=== PATIENT | female | born 1950 | race Caucasian/White ===

== ENCOUNTER → 2018-02-21 | Outpatient (CLI) | payer MEDICARE, OTHER ==
[~2018-02-21] MED LIST: AMLO5TAB2 PO; ATN50T; AZIT-21 PO; BUTA1TAB46 PO; CATHETER FLUSH 10 ML SYR IV PRN; CYCL10TA9 PO; DEXL60CA PO; DLT120CCR PO; ENAL20TA PO; ENAL5TAB PO; EST.625T; FRSM20T PO; FURO40TA4 PO; KCL10CCR PO; METO50TA7 PO; MTP25TSR PO; NF-ESOM40C PO; OMG1KC PO; PARO10TA21 PO; POTA10CA43 PO; PRX10T PO; SCR1T1 PO; SOTA80TA PO; TRAM-42 PO; VLS80C; WRF2.5T PO
--- NOTE | 2018-02-21 15:22 | Diagnostic Imaging Report ---
INDICATION: Right upper quadrant pain EXAM: Hepatobiliary scan TECHNIQUE: 5.44 mCi of technetium 99m Choletec was given for the scan. 8 ounces of Ensure was given at 40 minutes into the exam. FINDINGS: There is homogeneous uptake of isotope throughout the liver. The common duct and cystic duct are both patent. The calculated gallbladder ejection fraction is 69% IMPRESSION: Normal hepatobiliary scan and gallbladder ejection. Dictated by: Dictated on workstation # [id number]
== END ==
LOC: CARD 11:36
PROVIDERS: ATTEND Family Medicine
DX: R10.11 Right upper quadrant pain (principal)
CPT/HCPCS: 78227

== ENCOUNTER 2018-03-07 05:31 | Outpatient (CLI) | payer MEDICARE, OTHER ==
[~2018-03-07] VITALS: Ht 165.1 cm; Wt 97.6 kg
[~2018-03-07 05:31] MED LIST changes: -CATHETER FLUSH 10 ML SYR IV PRN
[2018-03-07] MEDS ORDERED: DILT240C53 PO (10:11)
[2018-03-07] MEDS ORDERED: AMLO5TAB7 PO (10:11)
[2018-03-07] MEDS ORDERED: ENAL20TA PO (10:11)
[2018-03-07] MEDS ORDERED: PARO10TA3 PO (10:11)
[2018-03-07] MEDS ORDERED: ESOM40CA52 PO (10:11)
[2018-03-07] MEDS ORDERED: WARF2.5T82 PO ×2 (10:11)
== END 2018-03-07 10:22 | disposition home or self-care (01) ==
LOC: PREOP 05:31
PROVIDERS: ATTEND Surgery
DX: Z01.818 Encounter for other preprocedural examination (principal)

== ENCOUNTER 2018-03-25 12:10 | Outpatient (CLI) | payer MEDICARE, OTHER ==
[~2018-03-25] VITALS: Ht 165.1 cm; Wt 96.6 kg
[~2018-03-25 12:10] MED LIST changes: +AMLO5TAB7 PO; +DILT240C53 PO; +ESOM40CA52 PO; +PARO10TA3 PO; +WARF2.5T82 PO
[2018-03-25] MEDS ORDERED: METO-333 PO (12:28)
[2018-03-25] MEDS ORDERED: NFBIOT1000 PO (12:28)
[2018-03-27] MEDS ORDERED: HYDR-3816 PO (08:43)
== END 2018-03-25 12:40 | disposition home or self-care (01) ==
LOC: PREOP 12:10
PROVIDERS: ATTEND Surgery
DX: Z01.818 Encounter for other preprocedural examination (principal)
CPT/HCPCS: 87081

== ENCOUNTER 2019-02-03 10:35 | Outpatient (CLI) | payer MEDICARE, OTHER ==
[~2019-02-03] VITALS: Ht 165.1 cm; Wt 88.6 kg
[~2019-02-03 10:35] MED LIST changes: -AMLO5TAB7 PO; +AMLO5TAB9 PO; +HYDR-3816 PO; +METO-333 PO; +NFBIOT1000 PO
[2019-02-03] MEDS ORDERED: CARV12.53 PO (10:56)
[2019-02-03] MEDS ORDERED: FURO40TA4 PO (10:56)
[2019-02-03] MEDS ORDERED: DOFE125C4 PO (10:56)
[2019-02-03] MEDS ORDERED: POTA10TA10 PO (10:56)
== END 2019-02-03 11:00 | disposition home or self-care (01) ==
LOC: PREOP 10:35
PROVIDERS: ATTEND Surgery
DX: Z01.818 Encounter for other preprocedural examination (principal)

== ENCOUNTER 2019-08-31 19:37 | Inpatient (IN) | payer MEDICARE, OTHER ==
[~2019-08-31] VITALS: Ht 165 cm; Wt 94.3 kg
[~2019-08-31 19:37] MED LIST changes: +CARV12.53 PO; +DOFE125C4 PO; +HYDR-34 PO; -HYDR-3816 PO; +POTA10TA10 PO
[2019-08-31 19:52] LABS: BASOPHILS % (AUTO) 1 % (0-10); EOSINOPHILS # (AUTO) 0.2 10^3/uL (0.0-0.3); EOSINOPHILS % (AUTO) 4 % (0-10); HEMATOCRIT 37 % (35-52); HEMOGLOBIN 12.7 G/DL (11.5-16.0); LYMPHOCYTES # (AUTO) 1.2 X 10^3 (1.0-4.0); LYMPHOCYTES % (AUTO) 20 % (12-44); MEAN CORPUSCULAR HEMOGLOBIN 35 PG (25-34); MEAN CORPUSCULAR HGB CONC 35 G/DL (32-36); MEAN CORPUSCULAR VOLUME 100 FL (80-99); MEAN PLATELET VOLUME 9.6 FL (7.4-10.4); MONOCYTES # (AUTO) 0.7 X 10^3 (0.0-1.0); MONOCYTES % (AUTO) 12 % (0-12); NEUTROPHILS # (AUTO) 3.8 X 10^3 (1.8-7.8); NEUTROPHILS % (AUTO) 64 % (42-75); PLATELET COUNT 185 10^3/uL (130-400); WHITE BLOOD COUNT 5.9 10^3/uL (4.3-11.0)
[2019-08-31] MEDS ORDERED: LABETALOL HCL 20 MG/4 ML VIAL IV ONE (20:00)
--- NOTE | 2019-08-31 20:04 | Diagnostic Imaging Report ---
PROCEDURE: CT head wo r/o stroke, 08/31/2019. TECHNIQUE: Multiple contiguous axial images were obtained through the brain without the use of intravenous contrast. Auto Exposure Controls were utilized during the CT exam to meet ALARA standards for radiation dose reduction. INDICATION: Stroke-like symptoms. Shakey. Headache. Dizziness. Trouble focusing the left eye. COMPARISON: CT brain dated 11/28/2013 FINDINGS: There is an area of encephalomalacia in the posterior right parietal lobe towards the vertex. The remaining brain demonstrates chronic ischemic changes in a periventricular distribution. No acute hemorrhage is seen. No mass, mass effect or midline shift. No acute infarct visualized. No hydrocephalus. The calvarium is intact. The paranasal sinuses and mastoid air cells are clear. IMPRESSION: 1. No acute intracranial process. Dictated by: Dictated on workstation # [id number]
--- NOTE | 2019-08-31 20:06 | ED Neurological Problem ---
General Chief Complaint: Neuro-Stroke Like Symptoms Stated Complaint: STROKE SYMPTOMS Source: patient History of Present Illness Date Seen by Provider: Aug 31, 2019 Time Seen by Provider: 19:40 Initial Comments PT ARRIVES VIA POV FROM HOME PT HAD CALLED EMS, THEN REFUSED TRANSPORT AND CAME BY POV INSTEAD PT STATES THAT AROUND 1730 TONIGHT, SHE BEGAN HAVING DIFFICULTY WITH VISION FROM LEFT EYE NO HEADACHE HAS BEEN A LITTLE DIZZY AND FEELING SHAKEY--STATES THOSE SYMPTOMS ARE ALMOST GONE NOW NO PARESTHESIAS OR MOTOR DEFICITS NO CHEST PAIN NO PALPITATIONS NO SHORTNESS OF BREATH PT HAS BEEN OUTSIDE IN THE HEAT THE LAST FEW DAYS HAS BEEN SWIMMING IN POOL THIS AFTERNOON AND DID NOT HAVE ANY PROBLEMS PT DRINKS A COUPLE OF GLASSES OF WINE EVERY NIGHT, AND WAS DRINKING WINE WHEN SHE NOTICED SHE COULDN'T SEE WELL WITH HER LEFT EYE NO PROBLEMS SWALLOWING OR TALKING PT HAS HISTORY OF ATRIAL FIBRILLATION--HAS NOT HAD ANY SYMPTOMS OF IT RECENTLY AND FEELS LIKE IT HAS BEEN IN RHYTHM PT IS ON COUMADIN, BUT HAD TO STOP IT FOR 5 DAYS LAST WEEK TO HAVE AN EGD ON Saturday08/28/19, THEN RESTARTED COUMADIN ON SATURDAY NIGHT. NO OTHER MISSED DOSES NO MISSED DOSES OF ANY OTHER MEDICATION PT REPORTS THAT NO BIOPSIES WERE DONE WITH EGD. NO PRIOR HISTORY OF STROKE HAS HTN, BUT IS NORMALLY IN 130'S/80'S NO FEVER OR RECENT ILLNESS NO KNOWN EXPOSURE TO COVID-19 PCP: DR. WHITMAN CARDIOLOGY: [facility] [place] Allergies and Home Medications Allergies Coded Allergies: No Known Drug Allergies (Unverified , 03/07/18) Home Medications Aspirin 81 Mg Tab.chew, 81 MG PO DAILY@0900 Prescribed by: MARIIA DREW on 09/01/19 1321 Atorvastatin Calcium 80 Mg Tablet, 80 MG PO HS Prescribed by: MARIIA DREW on 09/01/19 1321 Biotin 1,000 Mcg Tablet, 1,000 MCG PO DAILY, (Reported) Carvedilol 25 Mg Tablet, 25 MG PO BID, (Reported) Diltiazem HCl 120 Mg Capsule.er, 120 MG PO DAILY, (Reported) Dofetilide 125 Mcg Capsule, 125 MCG PO BID, (Reported) Enoxaparin Sodium 100 Mg/1 Ml Syringe, 100 MG SC Q12H Prescribed by: MARIIA DREW on 09/01/19 1321 Esomeprazole Magnesium 40 Mg Capsule.dr, 40 MG PO DAILY, (Reported) Furosemide 40 Mg Tablet, 40 MG PO DAILY PRN for FLUID RETENTION, (Reported) Paroxetine HCl 10 Mg Tablet, 10 MG PO DAILY, (Reported) Potassium Chloride 10 Meq Tablet.er, 10 MEQ PO DAILY PRN for FLUID RETENTION, (Reported) Warfarin Sodium 1 Mg Tablet, 1.5 MG PO HS, (Reported) TAKES 1 & (1MG) TABS Patient Home Medication List Home Medication List Reviewed: Yes Review of Systems Review of Systems Constitutional: see HPI; No chills, No diaphoresis; dizziness; No fever, No malaise, No weakness Eyes: See HPI; Denies Blindness; Blurred Vision, Decreased Acuity; Denies Pain, Denies Photophobia; Vision Changes Ears, Nose, Mouth, Throat: no symptoms reported Respiratory: no symptoms reported Cardiovascular: no symptoms reported Gastrointestinal: no symptoms reported; No nausea, No vomiting Genitourinary: no symptoms reported Musculoskeletal: no symptoms reported Skin: no symptoms reported Psychiatric/Neurological: See HPI; Denies Cognitive Dysfunction, Denies Headache, Denies Numbness, Denies Tingling, Denies Tonic Clonic Seizures, Denies Unable to Move Lower Ext, Denies Unable to Move Upper Ext, Denies Weakness Endocrine: No Symptoms Reported Hematologic/Lymphatic: No Symptoms Reported; Denies Anemia, Denies Blood Clots Past Nihetgl-Lnzocu-Iltwqk Hx Past Med/Social Hx: Reviewed and Corrections made Patient Social History Alcohol Use: Regular Use (DRINKS A COUPLE OF GLASSES OF WINE EVERY NIGHT) Alcohol Beverage of Choice: Wine Recreational Drug Use: No Smoking Status: Never a Smoker 2nd Hand Smoke Exposure: No Recent Foreign Travel: No Contact w/Someone Who Travel: No Recent Hopitalizations: No Immunizations Up To Date Tetanus Booster (TDap): Less than 5yrs PED Vaccines UTD: No Date of Pneumonia Vaccine: Jan 25, 2017 Date of Influenza Vaccine: Dec 16, 2018 Seasonal Allergies Seasonal Allergies: No Past Medical History Surgeries: Yes (BUNIONECTOMY WITH PIN PLACED, R RCR; EGD 08/28/19) Breast, Gallbladder, Hysterectomy, Orthopedic, Tonsillectomy Respiratory: No Currently Using CPAP: No Cardiac: Yes Atrial Fibrillation, Hypertension Neurological: No 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, 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 Sexually Transmitted Disease: No HIV/AIDS: No Genitourinary: No Gastrointestinal: Yes Gastroesophageal Reflux, Chronic Diarrhea Musculoskeletal: Yes (RIGHT CARPAL TUNNEL RELEASE) Endocrine: No HEENT: Yes (READING GLASSES) Loss of Vision: Bilateral Hearing Impairment: Denies Cancer: Yes Uterine Did You Recieve Any Treatments: Yes What Type of Treatment Did You: Chemotherapy, Surgical Intervention Psychosocial: Yes (HX) Anxiety, Depression Integumentary: No Blood Disorders: No Adverse Reaction/Blood Tranf: No (N/A) Family Medical History Alcoholism G8 BROTHER G8 BROTHER Cancer of mouth G8 BROTHER G8 BROTHER Cardiovascular disease Cataracts G8 BROTHER G8 BROTHER G8 SISTER G8 SISTER G8 SISTER FH: breast cancer G8 SISTER FH: lung cancer G8 BROTHER FH: pancreatic cancer G8 SISTER Headache disorder G8 BROTHER G8 BROTHER Hypercholesterolemia Hypertension 19 MOTHER G8 BROTHER G8 BROTHER G8 SISTER G8 SISTER G8 SISTER Myocardial infarction 19 FATHER G8 BROTHER G8 BROTHER Thyroid disease G8 SISTER No Family History of: AIDS Abdominal aortic aneurysm Arnold's disease Alzheimer's disease Aphasia Arthritis Asthma Colon cancer Completed stroke Congenital disease Congenital heart disease Coronary thrombosis Cystic fibrosis Deafness or hearing loss Dementia Diabetes mellitus Drug abuse Dysphasia Fibrocystic disease of breast Gastroenteritis Glaucoma Infertility Kidney disease Neoplasm Not obtainable due to adoption Osteoporosis Parkinson's disease Prostate cancer Psychosocial problem Respiratory disorder Seizure disorder Severe allergy Tuberculosis Visual disorder Physical Exam Vital Signs Vital Signs - First Documented 08/31/19 08/31/19 19:40 22:06 Temp 37.1 Pulse 70 Resp 17 B/P (MAP) 196/106 (136) Pulse Ox 97 O2 Delivery Room Air O2 Flow Rate 1.50 Capillary Refill : Height, Weight, BMI Height: 5'5.00" Weight: 213lbs. 0.0oz. 96.086877iv; 32.50 BMI Method:Stated General Appearance: WD/WN, no apparent distress HEENT: PERRL/EOMI, normal ENT inspection, TMs normal, pharynx normal Neck: non-tender, full range of motion, supple, normal inspection; No carotid bruit Respiratory: normal breath sounds, no respiratory distress, no accessory muscle use Cardiovascular: normal peripheral pulses, regular rate, rhythm, no JVD, no murmur Peripheral Pulses: 2+ Dorsalis Pedis (R), 2+ Left Dors-Pedis (L), 2+ Radial Pulses (R), 2+ Radial Pulses (L) Gastrointestinal: non tender, soft Extremities: normal range of motion, non-tender, no calf tenderness, normal capillary refill, pedal edema (TRACE BILATERALLY) 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, no motor/sensory deficits, alert, normal mood/affect, oriented x 3 Crainal Nerves: normal hearing, normal speech, PERRL; No gaze palsy; other (DECREASED PERIPHERAL VISION ON LEFT) Coordination/Gait: normal finger to nose, normal gait, negative Romberg's sign Motor/Sensory: no motor deficit, no sensory deficit, no pronator drift Skin: normal color, warm/dry Stroke Onset of Symptoms Onset of Symptoms: Yes NIH Stroke Scale Assessment Select: Initial Level of Consciousness: 0=Alert (0), Level of Consciousness- Questions: 0=Answers both month/age (0), LOC Commands: 0=Performs both tasks (0), Gaze: Normal (0), Visual Head: 1=Partial hemianopia (1), Facial Movement (Facial Paresis): 0=Normal symmetrical mnt (0), Motor Function-Arms Right: 0=No drift (0), Motor Function-Arms Left: 0=No drift (0), Motor Function-Legs Right: 0=No drift (0), Motor Function-Legs Left: 0=No drift (0), Limb Ataxia: 0=Absent (0), Sensory: 0=Normal:no loss (0), Best Language: 0=No aphasia (0), Dysarthria: 0=Normal (0), Extinction & Inattention: 0=No abnormality (0), Total: 1 Stroke Thrombolytic Exclusion Age 18 or Over: Yes Acute intenal hemorrhage: No History of CVA: No (NO KNOWN HISTORY TO PT, BUT EVIDENCE OF OLD CVA NOTED ON CT) Uncontrolled Coagulation Defec: No Intracranial Hemorrhage: No Severe Hypertension: Yes GI or Bleed: No Subarachnoid Hemorrhage: No Intracranial Neoplasm/Aneurysm: No Oral Anticoagulants: Yes Surgery or Trauma: Yes (EGD 08/28/19) Puncture of Non-Compressible V: No Recent CPR: No Diabetic Hemorrhagic Retinopat: No Organ Biopsy: No Recent Obstetric Delivery: No Glucose: No Significant Hepatic Dysfunctio: No NIH Stoke Scale >22: No Bacterial Endocarditis: No Pericarditis: No Improving Symptoms: Yes Platelets: No IV - TPa Received IV - TPa Procedure Performed?: No (SYMPTOMS ARE MINIMAL AND IMPROVING. ) Progress/Results/Core Measures Results/Orders Lab Results Laboratory Tests Test 08/31/19 19:42 08/31/19 19:45 08/31/19 20:16 08/31/19 21:35 Range/Units White Blood Count 5.9 4.3-11.0 10^3/uL Red Blood Count 3.66 L 4.35-5.85 10^6/uL Hemoglobin 12.7 11.5-16.0 G/DL Hematocrit 37 35-52 % Mean Corpuscular Volume 100 H 80-99 FL Mean Corpuscular Hemoglobin 35 H 25-34 PG Mean Corpuscular Hemoglobin Concent 35 32-36 G/DL Red Cell Distribution Width 13.0 10.0-14.5 % Platelet Count 185 130-400 10^3/uL Mean Platelet Volume 9.6 7.4-10.4 FL Neutrophils (%) (Auto) 64 42-75 % Lymphocytes (%) (Auto) 20 12-44 % Monocytes (%) (Auto) 12 0-12 % Eosinophils (%) (Auto) 4 0-10 % Basophils (%) (Auto) 1 0-10 % Neutrophils # (Auto) 3.8 1.8-7.8 X 10^3 Lymphocytes # (Auto) 1.2 1.0-4.0 X 10^3 Monocytes # (Auto) 0.7 0.0-1.0 X 10^3 Eosinophils # (Auto) 0.2 0.0-0.3 10^3/uL Basophils # (Auto) 0.0 0.0-0.1 10^3/uL Prothrombin Time 14.6 12.2-14.7 SEC INR Comment 1.1 0.8-1.4 Activated Partial Thromboplast Time 29 24-35 SEC D-Dimer < 0.27 0.00-0.49 UG/ML Sodium Level 139 135-145 MMOL/L Potassium Level 4.3 3.6-5.0 MMOL/L Chloride Level 102 98-107 MMOL/L Carbon Dioxide Level 24 21-32 MMOL/L Anion Gap 13 5-14 MMOL/L Blood Urea Nitrogen 17 7-18 MG/DL Creatinine 1.15 0.60-1.30 MG/DL Estimat Glomerular Filtration Rate 47 BUN/Creatinine Ratio 15 Glucose Level 120 H 70-105 MG/DL Calcium Level 9.1 8.5-10.1 MG/DL Corrected Calcium 8.8 8.5-10.1 MG/DL Magnesium Level 1.7 1.6-2.4 MG/DL Total Bilirubin 0.4 0.1-1.0 MG/DL Aspartate Amino Transf (AST/SGOT) 41 H 5-34 U/L Alanine Aminotransferase (ALT/SGPT) 32 0-55 U/L Alkaline Phosphatase 64 40-136 U/L Troponin I < 0.028 <0.028 NG/ML Total Protein 7.6 6.4-8.2 GM/DL Albumin 4.4 3.2-4.5 GM/DL TSH [place] Testing 3.39 0.35-4.94 UIU/ML Serum Alcohol 16 H <10 MG/DL Glucometer 123 H 70-110 MG/DL Urine Color YELLOW Urine Clarity SL CLOUDY Urine pH 5.0 5-9 Urine Specific [place] >=1.030 1.016-1.022 Urine Protein NEGATIVE NEGATIVE Urine Glucose (UA) NEGATIVE NEGATIVE Urine Ketones NEGATIVE NEGATIVE Urine Nitrite NEGATIVE NEGATIVE Urine Bilirubin NEGATIVE NEGATIVE Urine Urobilinogen 0.2 < = 1.0 MG/DL Urine Leukocyte Esterase 1+ H NEGATIVE Urine RBC (Auto) NEGATIVE NEGATIVE Urine RBC NONE /HPF Urine WBC 2-5 /HPF Urine Squamous Epithelial Cells 2-5 /HPF Urine Crystals NONE /LPF Urine Bacteria FEW H /HPF Urine Casts NONE /LPF Urine Mucus NEGATIVE /LPF Urine Culture Indicated YES Urine Opiates Screen NEGATIVE NEGATIVE Urine Oxycodone Screen NEGATIVE NEGATIVE Urine Methadone Screen NEGATIVE NEGATIVE Urine Propoxyphene Screen NEGATIVE NEGATIVE Urine Barbiturates Screen NEGATIVE NEGATIVE Ur Tricyclic Antidepressants Screen NEGATIVE NEGATIVE Urine Phencyclidine Screen NEGATIVE NEGATIVE Urine Amphetamines Screen NEGATIVE NEGATIVE Urine Methamphetamines Screen NEGATIVE NEGATIVE Urine Benzodiazepines Screen NEGATIVE NEGATIVE Urine Cocaine Screen NEGATIVE NEGATIVE Urine Cannabinoids Screen NEGATIVE NEGATIVE Blood Gas Puncture Site LEFT RADIAL Blood Gas Patient Temperature 36.7 Arterial Blood pH 7.37 7.37-7.43 Arterial Blood Partial Pressure CO2 44 35-45 MMHG Arterial Blood Partial Pressure O2 50 L 79-93 MMHG Arterial Blood HCO3 25 23-27 MMOL/L Arterial Blood Total CO2 26.5 21.0-31.0 MMOL/L Arterial Blood Oxygen Saturation 78 L 94-100 % Arterial Blood Base Excess 0.4 -2.5-2.5 MMOL/L Jone Test POSITIVE Blood Gas Ventilator Setting NO Blood Gas Inspired Oxygen 1.5 Test 08/31/19:20 Range/Units Lab Scanned Report Referred Lab Report [id number] Micro Results Microbiology 08/31/19 Urine Culture - Final, Complete 3 or more isolates My Orders Orders - FERNANDO SCHMITT DO Cbc With Automated Diff (08/31/19 19:42) Protime With Inr (08/31/19:42) Partial Thromboplastin Time (08/31/19:42) Comprehensive Metabolic Panel (08/31/19:42) Fibrin Degradation Products (08/31/19:42) Troponin I (08/31/19:42) Ua Culture If Indicated (08/31/19:42) Chest 1 View, Ap/Pa Only (08/31/19:42) Catheter(Urinary) Insert & Ass 03,15 (08/31/19 19:42) Ekg Tracing (08/31/19:42) Nothing By Mouth (09/01/19 Breakfast) Accucheck Stat ONCE (08/31/19:42) Ed Iv/Invasive Line Start (08/31/19:42) Ed Iv/Invasive Line Start (08/31/19:42) Vital Signs Stroke Patient Q15M (08/31/19:42) Ct Head Wo-R/O Stroke (08/31/19 19:42) O2 (08/31/19:42) Intake & Output 06,14,22 (08/31/19 19:42) Monitor-Rhythm Ecg Trace Only (08/31/19:42) Dysphagia Screening Tool (08/31/19:42) Drug Screen Stat (Urine) (08/31/19 19:56) Labetalol Injection (Normodyne Injection (08/31/19 20:00) Alcohol (08/31/19:42) Magnesium (08/31/19:42) Thyroid Analyzer (08/31/19:42) Ed Iv/Invasive Line Start (08/31/19 20:17) Ns Iv 1000 Ml (Sodium Chloride 0.9%) (08/31/19 20:17) Ct Angio Head/Neck (08/31/19 20:18) Urine Culture (08/31/19 20:16) Iohexol Injection (Omnipaque 350 Mg/Ml 1 (08/31/19 20:45) Received Contrast (Hold Metformin- Contr (08/31/19 20:45) Ns (Ivpb) (Sodium Chloride 0.9% Ivpb Bag (08/31/19 20:45) Hydralazine Injection (Apresoline Inject (08/31/19 21:15) Albuterol/Ipra Inhalation Soln (Duoneb I (08/31/19 21:45) Dexamethasone Injection (Decadron Inject (08/31/19 21:45) Rt Request For Service (08/31/19 21:35) Methylprednisolone Sod Succ (Solu-Medrol (08/31/19 21:35) Chest 1 View, Ap/Pa Only (08/31/19 21:35) Diphenhydramine Injection (Benadryl Inje (08/31/19 21:35) Svn Small Volume Nebulizer (08/31/19 21:35) Arterial Blood Gas (08/31/19 21:35) Diphenhydramine Injection (Benadryl Inje (08/31/19 21:37) Furosemide Injection (Lasix Injection) (08/31/19 22:15) Medications Given in ED Vital Signs/I&O 08/31/19 08/31/19 08/31/19 19:40 21:44 22:06 Temp 37.1 Pulse 70 Resp 17 B/P (MAP) 196/106 (136) Pulse Ox 97 O2 Delivery Room Air Nasal Cannula Nasal Cannula O2 Flow Rate 1.50 Progress Progress Note : Progress Note ACCUCHECK 123 PT GIVEN LABETALOL AND HYDRALAZINE FOR BLOOD PRESSURE, WITH IMPROVEMENT IN BLOOD PRESSURE PT GIVEN IV FLUIDS DUE TO RECEIVING IV DYE FOR CT ANGIOGRAM PT STATES SHE HAS HAD IV DYE WITHOUT PROBLEMS IN THE PAST 2129--ON RETURN FROM CT DEPT, PT IWTH O2 SATS 86-89%--UP TO 97% ON 2L/NC PT ALSO A LITTLE SHORT OF BREATH AND IS NOW NOTED TO HAVE WHEEZING--RIGHT> LEFT. GIVEN DUONEB TREATMENT, SOLU-MEDROL AND BENADRYL--WITH CLEARING OF LUNG SOUNDS AND IMPROVEMENT IN SYMPTOMS REPEAT CXR SHOWS SOME MILD VASCULAR CONGESTION WELL-GIVEN LASIX. ALSO GIVEN LOVENOX FOR POTENTIAL CVA, WITH SUBTHERAPEUTIC INR Initial ECG Impression Date: Aug 31, 2019 Initial ECG Impression Time: 19:53 Initial ECG Rate: [address] HEAD--PER RADIOLOGIST REPORT AT 2005 FINDINGS: There is an area of encephalomalacia in the posterior right parietal lobe towards the vertex. The remaining brain demonstrates chronic ischemic changes in a periventricular distribution. No acute hemorrhage is seen. No mass, mass effect or midline shift. No acute infarct visualized. No hydrocephalus. The calvarium is intact. The paranasal sinuses and mastoid air cells are clear. IMPRESSION: 1. No acute intracranial process. CXR--NO ACUTE PROCESS, PER RADIOLOGIST REPORT AT 2016 CT ANGIOGRAM HEAD/NECK--PER RADIOLOGIST REPORT AT 2141 FINDINGS: Marked tortuosity of the common carotid arteries seen bilaterally at the thoracic inlet. No occlusion or significant stenosis appreciated. Scattered atherosclerotic disease is seen along the course of both arteries. The common carotid arteries at the bulbs demonstrate atherosclerotic disease and just proximal to the bulbs, as well. Internal carotid arteries within the neck as well as external carotid arteries patent. The vertebral arteries in the neck patent. No dissection or occlusion. The basilar artery and intracerebral vertebral arteries patent. Posterior cerebral arteries patent. Mild narrowing of the distal posterior cerebral artery on the right is noted compared to the left but there is no complete occlusion appreciated, correlate with patient's symptoms. The internal carotid arteries within the brain demonstrate atherosclerotic disease bilaterally but appear to be patent. Middle cerebral arteries and anterior cerebral arteries bilaterally patent and unremarkable. The postcontrast imaging unremarkable for abnormal enhancement. IMPRESSION: 1. Multifocal areas of atherosclerotic disease, as above. Some narrowing of the right posterior cerebral artery distally without complete occlusion. Correlate with patient's symptoms. Remaining vessels, as above. REPEAT CXR--MILD VASCULAR CONGESTION, PENDING RADIOLOGIST REVIEW Reviewed: Reviewed by Or Departure Communication (Admissions) 2216--SPOKE WITH DR. HIGUERA. HOSPITALIST, ACCEPTS PT FOR ADMIT . ORDERS NOTED 2219--CALLED E-ICU AND INFORMED OF PT'S ADMIT AND CONSULT. NO ADDITIONAL RECOMMENDATIONS AT THIS TIME Impression Primary Impression: ACUTE VISION CHANGES/POSSIBLE CVA Additional Impressions: Hypertensive emergency Subtherapeutic anticoagulation History of atrial fibrillation ACUTE DYSNEA AND HYPOXIA-FLUID OVERLOAD VS MED REACTION Disposition: ADMITTED INPATIENT Condition: Improved Admissions Decision to Admit Reason: Admit from ER (General) Decision to Admit/Date: Aug 31, 2019 Time/Decision to Admit Time: 22:15 Departure-Patient Inst. Referrals: FERNANDO TOMAS MD (PCP/Family) Primary Care Physician Scripts Aspirin (Aspirin) 81 Mg Tab.chew 81 MG PO DAILY@0900 for 30 Days, #30 TAB Prov: MARIIA DRWE MD 09/01/19 Atorvastatin Calcium (Atorvastatin Calcium) 80 Mg Tablet 80 MG PO HS for 90 Days, #90 TAB 0 Refills Prov: MARIIA DREW MD 09/01/19 Enoxaparin Sodium (Enoxaparin Sodium) 100 Mg/1 Ml Syringe 100 MG SC Q12H for 7 Days, #14 SYRINGE Prov: MARIIA DREW MD 09/01/19 FERNANDO SCHMITT DO Aug 31, 2019 20:06
[2019-08-31 20:10] LABS: ALBUMIN 4.4 GM/DL (3.2-4.5); CHLORIDE 102 MMOL/L (98-107); POTASSIUM 4.3 MMOL/L (3.6-5.0); SODIUM 139 MMOL/L (135-145)
[2019-08-31 20:11] LABS: CALCIUM 9.1 MG/DL (8.5-10.1)
--- NOTE | 2019-08-31 20:11 | Diagnostic Imaging Report ---
INDICATION: Dizziness, stroke like symptoms. EXAMINATION: Single view chest 08/31/2019 FINDINGS: The heart is prominent. Pulmonary vasculature is within normal limits. Mild increased densities at the bases, left worse than right, noted and could be due to infiltrate with small left effusion suspected. There is no pneumothorax. IMPRESSION: 1. Suspected left base atelectasis or infiltrate with a small adjacent effusion. 2. Cardiomegaly. Dictated by: Dictated on workstation # [id number]
[2019-08-31 20:12] LABS: GLUCOSE 120 MG/DL (70-105)
[2019-08-31 20:13] LABS: TOTAL PROTEIN 7.6 GM/DL (6.4-8.2)
[2019-08-31 20:14] LABS: BILIRUBIN,TOTAL 0.4 MG/DL (0.1-1.0); CARBON DIOXIDE 24 MMOL/L (21-32); FIBRIN DEGRADATION PRODUCTS < 0.27 UG/ML (0.00-0.49); INR 1.1 (0.8-1.4); PARTIAL THROMBOPLASTIN TIME 29 SEC (24-35); PROTHROMBIN TIME PATIENT 14.6 SEC (12.2-14.7)
[2019-08-31 20:16] LABS: ALKALINE PHOSPHATASE 64 U/L (40-136); CREATININE SERUM 1.15 MG/DL (0.60-1.30); GFR ESTIMATED 47
[2019-08-31 20:17] LABS: BUN/CREATININE RATIO 15
[2019-08-31] MEDS ORDERED: NS IV 1000 ML 1,000 ML IV SCH (20:17)
[2019-08-31 20:19] LABS: ALANINE AMINOTRANSFERASE 32 U/L (0-55); MAGNESIUM 1.7 MG/DL (1.6-2.4)
[2019-08-31 20:25] LABS: BILIRUBIN,URINE NEGATIVE (NEGATIVE); COLOR,URINE YELLOW; GLUCOSE, URINE (UA) NEGATIVE (NEGATIVE); KETONES,URINE NEGATIVE (NEGATIVE); LEUKOCYTE ESTERASE ,URINE 1+ (NEGATIVE); NITRITE,URINE NEGATIVE (NEGATIVE); PROTEIN,URINE NEGATIVE (NEGATIVE)
[2019-08-31 20:30] LABS: CLARITY,URINE SL CLOUDY
[2019-08-31 20:31] LABS: BACTERIA,URINE FEW /HPF
[2019-08-31 20:35] LABS: AMPHETAMINE SCREEN, URINE NEGATIVE (NEGATIVE); BARBITURATE SCREEN URINE NEGATIVE (NEGATIVE); BENZODIAZEPINES SCREEN URINE NEGATIVE (NEGATIVE); CANNABINOID SCREEN, URINE NEGATIVE (NEGATIVE); COCAINE SCREEN URINE NEGATIVE (NEGATIVE); METHADONE STAT NEGATIVE (NEGATIVE); METHAMPHETAMINE SCREEN URINE S NEGATIVE (NEGATIVE); OPIATE SCREEN URINE NEGATIVE (NEGATIVE); OXYCODONE STAT NEGATIVE (NEGATIVE); PROPOXYPHENE STAT NEGATIVE (NEGATIVE); TRICYCLIC ANTIDEPRESSANTS SCRE NEGATIVE (NEGATIVE)
--- OUTSIDE RECORDS SUMMARY | 2019-08-31 20:36 | XMS REPORT | Clinical Summary ---
Author Author [facility] Organization [facility] Address Unknown Phone Unavailable Care Team Providers Care Supervisor Print Line Name Role Phone Yulissa Zapata PCP Allergies Comments Active Allergy Reactions Severity Noted Date Diltiazem Hcl Dizziness 11/03/2018 Medications End Date Status Medication Sig Dispensed Refills Start Date Active PARoxetine (PAXIL) 10 MG Take 10 mg by 0 tabletIndications: mouth daily. anxiety with depression Active furosemide (LASIX) 40 MG Take 40 mg by 0 09/04 tabletIndications: edema mouth daily. 9 Active BIOTIN ORALIndications: Take 10,000 0 vitamin supplement mcg by mouth daily. Active warfarin (COUMADIN) 2.5 Take 1 tablet 30 tablet 11 MG tablet (2.5 mg 9 total) by mouth every evening. Additional Information Patient taking differently: 2.5 mg Oral Every evening, M-W-, Reported on 03/16/2019 12:51 PM Active carvedilol (COREG) 25 MG Take 1 tablet 60 tablet 11 tabletIndications: (25 mg total) 9 chronic heart failure by mouth 2 (two) times a day. 12/19/2019 Active warfarin (COUMADIN) 1 MG Take 1 tablet 90 tablet 3 tabletIndications: Long (1 mg total) 9 term current use of by mouth as antiarrhythmic drug, directed. Persistent atrial Take once fibrillation (HCC) daily as directed by INR Additional Information Patient taking differently: 1.5 mg Oral As directed, Take once daily as directed by INR M-Wt-Gms-Marta, Reported on 03/16/2019 12:51 PM Active BUDESONIDE Take 2 mg by 0 ORALIndications: mouth daily. infection Active potassium chloride Take 1 tablet 90 tablet 3 04/07 (KLOR-CON) 10 MEQ CR (10 mEq 0 tabletIndications: total) by hypokalemia prevention mouth daily. Active omeprazole (PRILOSEC) 40 Take 1 60 capsule 2 0 MG capsuleIndications: capsule (40 0 gastroesophageal reflux mg total) by disease mouth 2 (two) times a day before breakfast and dinner. Active dofetilide (TIKOSYN) 125 Take 1 60 capsule 6 0 MCG capsuleIndications: capsule (125 0 cardioversion of atrial mcg total) by fibrillation, paroxysmal mouth every supraventricular 12 (twelve) tachycardia hours. 07/16/2020 Active diltiazem (CARDIZEM CD) Take 1 30 capsule 11 120 MG 24 hr capsule (120 0 capsuleIndications: mg total) by Paroxysmal atrial mouth daily. fibrillation (HCC) Active Problems Problem Noted Date Aspiration pneumonia 02/11/2019 Last Assessment & Plan: Secondary to retained esophogeal food: -completed 3/4 days of zosyn, now has d iarrhea -change to rocephin / flagyl to see if less affect on gut -repeat procalcitonin trending down Warfarin anticoagulation 02/09/2019 Aspiration pneumonia 02/09/2019 On dofetilide therapy 02/09/2019 Obesity (BMI 30.0-34.9) 02/09/2019 Alcohol consumption of more than four drinks per week 02/09/2019 Dysphagia 02/08/2019 Esophageal dysphagia 02/07/2019 Last Assessment & Plan: Concern for esophageal stricture s/p di latation at outside hospital: -history of eosinophilic esophagitis -failed EGD attempt with possible aspir ation 02/09 -repeat EGD 02/10/19 without stricture, clinical concern for achalasia -failed trial of clear liquid diet -plan Botox today as did not tolerate P O Esophageal stricture 02/07/2019 Hypotension due to drugs 12/09/2018 History of cardiomyopathy 12/09/2018 Atrial flutter 12/09/2018 detention current use of antiarrhythmic drug 019 JJ (obstructive sleep apnea) 11/23/2018 Dilated cardiomyopathy 11/20/2018 Chronic combined systolic and diastolic CHF, NYHA cla ss 3 11/20/2018 Tricuspid regurgitation Mitral regurgitation Mixed hyperlipidemia GERD (gastroesophageal reflux disease) Paroxysmal atrial fibrillation Last Assessment & Plan: Currently in sinus rhythm: -continue dofetilide as PO allows -continue to hold warfarin as needs rep eat EGD today Depression Last Assessment & Plan: Continue Paxil Essential hypertension Last Assessment & Plan: Continue coreg long term care administrator current use of anticoagulant therapy Encounters Care Team Description Date Type Specialty Nirav Power LPN 08/20/2019 Telephone Cardiology Erwin Taylor LPN detention current use of anticoagulant t herapy; Paroxysmal atrial fibrillation (HCC); Atrial flutter, unspecified type (HCC) 08/13/2019 Anticoag visit [facility] France Louis LPN Lab orders (INR standing order) 07/29/2019 Telephone Cardiology Mary Jo Melvin LPN long term care administrator current use of anticoagulant t herapy; Paroxysmal atrial fibrillation (HCC); Atrial flutter, unspecified type (HCC) 07/13/2019 Anticoag visit Cardiology Vickie Bradley RN INR Reminder 07/13/2019 Telephone Tamica Forrest RN 07/09/2019 Telephone Cardiology Owen Dickens MD Other 07/09/2019 Refill Cardiology Mirna Pratt LPN long term care administrator current use of anticoagulant t herapy; Paroxysmal atrial fibrillation (HCC); Atrial flutter, unspecified type (HCC) 06/24/2019 Anticoag visit Cardiology Ibis Goss LPN Lab orders 06/17/2019 Telephone Cardiology from Last 3 Months Family History Medical History Relation Name Comments Lung cancer Brother Chaparro Coronary artery disease Brother Paolo Hypertension Brother Paolo COPD Brother Mazin Heart attack Mother Breast cancer Sister Mirella Pancreatic cancer Sister Mayela Atrial fibrillation Sister Gris Relation Name Status Comments Brother Chaparro (Age 71) Brother Paolo (Age 64) Brother Mazin Father (Age 70) Mother (Age 87) Sister Mirella (Age 46) Sister aMyela (Age 72) Sister Gris (Age 87) Social History Date Tobacco Use Types Packs/Day Years Used Never Smoker Smokeless Tobacco: Never Used Drinks/Week oz/Week Comments Alcohol Use 7 Glasses of wine 7.0 Yes Sex Assigned at Date Recorded Not on file Industry Job Start Date Occupation Not on file Not on file Not on file Travel End Travel History Travel Start No recent travel history available. Last Filed Vital Signs Reading Time Taken Comments Vital Sign 131/77 03/16/2019 12:42 PM VACUUM DRUM DRIER OPERATOR Blood Pressure 60 03/16/2019 12:42 PM VACUUM DRUM DRIER OPERATOR Pulse 35.9 C (96.7 F) 03/16/2019 12:42 PM VACUUM DRUM DRIER OPERATOR Temperature 20 03/16/2019 12:42 PM VACUUM DRUM DRIER OPERATOR Respiratory Rate 96% 03/16/2019 12:42 PM VACUUM DRUM DRIER OPERATOR Oxygen Saturation - - Inhaled Oxygen Concentration 88.9 kg (196 lb) 03/16/2019 12:42 PM VACUUM DRUM DRIER OPERATOR Weight 165.1 cm (5' 5") 03/16/2019 12:42 PM VACUUM DRUM DRIER OPERATOR Height 32.62 03/16/2019 12:42 PM VACUUM DRUM DRIER OPERATOR Body Mass Index Plan of Treatment Health Maintenance Due Date Last Done Comments Hepatitis C Screen 1950 Medicare Annual Wellness 1950 Td # 1950 Colorectal Screening via 01/08/1998 Colonoscopy Mammogram Screening 01/08/1998 Zoster Vaccine# (1 of 2) 01/08/1998 Depression Screening 01/08/2013 PHQ-9 # Osteoporosis Screening 01/08/2013 Pneumococcal Vaccine: 65+ 01/08/2013 Years (1 of 1 - PPSV23) Influenza Vaccine (Season 01/10/2020 Ended) Fall Risk Assessment # 02/14/2020 02/13/2019 Procedures Comments Procedure Name Priority Date/Time Associated Diag nosis PROTIME-INR Routine 08/13/2019 PROTIME-INR Routine 07/13/2019 PROTIME-INR Routine 06/24/2019 from Last 3 Months Results * Protime-INR (08/13/2019) Only the most recent of 3 results within the time period is included. INR 3.6 (A)Comment: Recommend; 2 - 3 Hold tonight then resume 1.5 mg daily and recheck INR 08/20/19 Specimen Blood Resulting Agency Comment from Last 3 Months Insurance Type Payer Benefit Subscriber ID Effective Phone Address Plan / Dates Group Medicare MEDICARE MEDICARE xxxxxxxxxxx 2012- [place] PART A B [place], [place] COMMERCIAL-NONCONTRACTED [employer] xxxxxxxxxx [id number] MEDICARE resent SUPPLEMENT Advance Directives For more information, please contact: [phone] Patient Ticket Sorter Explanation Type Date Recorded Health Care Directive Date Inactivated Comments Code Status Date Activated 02/13/2019 4:13 PM Full Code 02/08/2019 12:22 AM 11/24/2018 4:23 PM Full Code 11/20/2018 10:46 AM
--- OUTSIDE RECORDS SUMMARY | 2019-08-31 20:36 | XMS REPORT | Encounter Summary ---
Author Author [facility] Organization [facility] Address Unknown Phone Unavailable Care Team Providers Care Real Estate Loan Processor Name Role Phone Yulissa Zapata PCP Encounter Details Care Team Description Date Type Department Nirva Power LPN 08/20/2019 Telephone [facility] [address] [place] [address] Social History Date Tobacco Use Types Packs/Day Years Used Never Smoker Smokeless Tobacco: Never Used Drinks/Week oz/Week Comments Alcohol Use 7 Glasses of wine 7.0 Yes Sex Assigned at Date Recorded Not on file Industry Job Start Date Occupation Not on file Not on file Not on file Travel End Travel History Travel Start No recent travel history available. documented as of this encounter Miscellaneous Notes * Telephone Encounter - Dayton Daugherty MD - 08/24/2019 8:43 AM CDT Since she is taking Tikosyn, then reasonable to take a bid med-des Cunningham Thanks bmr * Telephone Encounter - Dayton Daugherty MD - 08/22/2019 7:57 AM CDT Is she against a NOAC? bmr * Telephone Encounter - Angelique Hamilton RN - 08/21/2019 9:36 AM CDT Spoke to pt to review Dr Daugherty's rec, ok to hold warfarin as requested, but he w ould like to transition her to NOAC following completion of EGD. Pt v/u, is ketty santa. Also aware he would like to see her in clinic prior to ablation since it has been several months since last discussion. Pt will call us following scheduled EGD to discuss transition to NOAC * Telephone Encounter - Dayton Daugherty MD - 08/21/2019 7:29 AM CDT It looks like CHADSVasc is 3-reasonable to hold warfarin for that period of time . Once EGD is completed I would suggest transition to a NOAC giving her sample for 1 month prior to ablation to avoid postponing the procedure due to subtherap eutic INR and I will also need to see her back in clinic prior to procedure to d nancy the ablation-have not seen her since 12/2018 Thanks bmr * Telephone Encounter - Nirav Power LPN - 08/20/2019 12:55 PM CDT Pt called stating she is scheduled for an EGD on 08/28/2019. She has been direc nakita to hold warfarin 5 days prior. She is seeking recs from Dr Daugherty documented in this encounter Plan of Treatment Not on filedocumented as of this encounter Visit Diagnoses Not on filedocumented in this encounter
--- OUTSIDE RECORDS SUMMARY | 2019-08-31 20:37 | XMS REPORT | Encounter Summary ---
Author Author [facility] Organization [facility] Address Unknown Phone Unavailable Care Team Providers Care Zipper Trimmer Name Role Phone Yulissa Zapata PCP Reason for Visit * Reason Comments INR Reminder 1st Attempt Encounter Details Care Team Description Date Type Department Liudmila Zarate, CHEMICAL OPERATIONS SPECIALIST [address] [place], [place] [address] INR Reminder (1st Attempt ) 04/06/2019 Telephone [facility] [address] [place] [address] Social History Date Tobacco Use Types Packs/Day [...] encounter Miscellaneous Notes * Telephone Encounter - Nilson Holguin - 04/06/2019 8:40 AM EXTENSION COURSE COORDINATOR Called pt stated that she forgot had to take Spouse to Hospital but going to mary ann e it right now and call it in 04/06/2019. TQ NSION COURSE COORDINATOR documented in this encounter Plan of Treatment Not on filedocumented as of this encounter Visit Diagnoses Not on filedocumented in this encounter
--- OUTSIDE RECORDS SUMMARY | 2019-08-31 20:37 | XMS REPORT | Encounter Summary ---
Author Author [facility] Organization [facility] Address Unknown Phone Unavailable Care Team Providers Care Health Records Technology Teacher Name Role Phone Yulissa Zapata PCP Reason for Visit * Reason Comments Medication Refill Encounter Details Care Team Description Date Type Department Anastasia Olmstead LPN Medication Refill 04/07/2019 Refill [facility] [address] [place] [address] Social History Date Tobacco Use Types Packs/Day [...] history available. documented as of this encounter Plan of Treatment Not on filedocumented as of this encounter Visit Diagnoses Not on filedocumented in this encounter
--- OUTSIDE RECORDS SUMMARY | 2019-08-31 20:37 | XMS REPORT | Encounter Summary ---
Author Author [facility] Organization [facility] Address Unknown Phone Unavailable Care Team Providers Care Direct Care Worker Name Role Phone Yulissa Zapata PCP Reason for Visit * Reason Comments INR Reminder 1st Attempt Encounter Details Care Team Description Date Type Department Lorie Hinojosa, PUBLIC ADDRESS SYSTEM OPERATOR [address] [place] [address] [phone] INR Reminder (1st Attempt ) 04/23/2019 Telephone [facility] [address] [place] [address] Social History Date Tobacco Use Types Packs/Day [...] * Telephone Encounter - Nilson Holguin - 04/23/2019 9:31 AM DENTURE LABORATORY TECHNICIAN Called pt stated that she didn't know she was suppose to get INR Checked but janiya l get it done shortly and callback asked about phone trouble on Saturday inform ye s had an upgrade. TQ URE LABORATORY TECHNICIAN documented in this encounter Plan of Treatment Not on filedocumented as of this encounter Visit Diagnoses Not on filedocumented in this encounter
--- OUTSIDE RECORDS SUMMARY | 2019-08-31 20:37 | XMS REPORT | Encounter Summary ---
Author Author [facility] Organization [facility] Address Unknown Phone Unavailable Care Team Providers Care Air Chief Marshal Name Role Phone Yulissa Zapata PCP Reason for Visit * Reason Comments Results Encounter Details Care Team Description Date Type Department Amanda Mueller RN Results 03/24/2019 Telephone [facility] [address] [place] [address] Social History Date Tobacco Use Types Packs/Day [...] encounter Miscellaneous Notes * Telephone Encounter - Amanda Mueller RN - 03/24/2019 11:40 AM BRANCH MAKER Pt called to get results from motility study done on 03/16/19 w/Dr. De La Torre. Informe d pt that there is up to 2 week turnaround time for the results to be interprete d. Informed pt that once Dr. De La Torre has reviewed the results, he or his nurse janiya l contact her with the results. Instructed that she is welcome to call back if n o one has contacted her after another week. Pt vebalizes understanding. CH MAKER documented in this encounter Plan of Treatment Not on filedocumented as of this encounter Visit Diagnoses Not on filedocumented in this encounter
--- OUTSIDE RECORDS SUMMARY | 2019-08-31 20:37 | XMS REPORT | Encounter Summary ---
Author Author [facility] Organization [facility] Address Unknown Phone Unavailable Care Team Providers Care Continuous Improvement Engineer Name Role Phone Yulissa Zapata PCP Reason for Visit * Reason Comments Results Encounter Details Care Team Description Date Type Department Yary Nelson RN Results 04/09/2019 Telephone [facility] [address] [place] [id number] Social History Date Tobacco Use Types Packs/Day [...] encounter Miscellaneous Notes * Telephone Encounter - Yary Nelson RN - 04/09/2019 3:56 PM RETENTION MANAGER Result Notes for Motility study, esophageal Notes recorded by Justin De La Torre MD on 03/24/2019 at 3:05 PM RETENTION MANAGER A difficult study to read. At first glance it looked like patient has achalasia but she had a single viscous swallow with clear peristalsis. 1. Mildly hypertensive LES with high median IRP of 20. 2. Normotensive UES with normal relaxation. 3. Abnormal EGJ morphology, type III. 4. Normal DL. 70% of wet swallows had a normal DCI > 450 but 80% of wet swallows were labeled ineffective due to large breaks in the 20 mmHg isobaric contour. Liquid bolus completion rate was only 20%. 5. 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 Scans on Order [id number] Scan on 03/16/2019 4:04 PM by Jewels Chapin RN Pt calling in to get results for motility study and rec of what she should do ne xt. PT STILL HAVING TROUBLE WITH SWALLOWING AND FEELS LIKE THE BOTOX IS WEARING OFF. SHE HAS BEEN HAVING [place]AR[place]URN PRETTY BADLY HER INSURANCE WONT PAY FOR THE N EXIUM 2X DAY EXPLAINE I [facility]OULD [facility] BE [facility] L[facility] THIS WILL HELP WITH THE COST OF MEDS. ROUTED TO DR Robyn MEJIA RN NTION MANAGER documented in this encounter Plan of Treatment Not on filedocumented as of this encounter Visit Diagnoses Not on filedocumented in this encounter
--- OUTSIDE RECORDS SUMMARY | 2019-08-31 20:37 | XMS REPORT | Encounter Summary ---
Author Author [facility] Organization [facility] Address Unknown Phone Unavailable Care Team Providers Care Filler Mixer Name Role Phone Yulissa Zapata PCP Reason for Visit * Reason Comments INR Reminder 1st Attempt Encounter Details Care Team Description Date Type Department Kathryn Gage PA-C [address] [place] [address] [phone] INR Reminder (1st Attempt ) 03/24/2019 Telephone [facility] [address] [place] [address] Social History Date Tobacco Use Types Packs/Day [...] * Telephone Encounter - Nilson Holguin - 03/24/2019 2:35 PM FLEXOGRAPHIC PRESS SET UP OPERATOR Called pt stated that she is going to go in Shortly and get INR Checked 03/24/19 20. TQ OGRAPHIC PRESS SET UP OPERATOR documented in this encounter Plan of Treatment Not on filedocumented as of this encounter Visit Diagnoses Not on filedocumented in this encounter
--- OUTSIDE RECORDS SUMMARY | 2019-08-31 20:37 | XMS REPORT | Encounter Summary ---
Author Author [facility] Organization [facility] Address Unknown Phone Unavailable Care Team Providers Care Scheduling Manager Name Role Phone Yulissa Zapata PCP Encounter Details Care Team Description Date Type Department Lorie Dubois LPN petroleum terminal plant operator current use of anticoagulant t herapy; Paroxysmal atrial fibrillation (HCC); Atrial flutter, unspecified type (HCC) 04/06/2019 Anticoag visit [facility] [address] [place] [address] [address] [place] [address] Social History Date Tobacco Use Types Packs/Day [...] history available. documented as of this encounter Progress Notes * Liudmila Zarate APRN - 04/06/2019 2:38 PM PHARMACY TECHNICIAN PROGRAM DIRECTOR I have reviewed the INR result and agree with the outlined warfarin dosing recom mendations. MACY TECHNICIAN PROGRAM DIRECTOR * Lorie Dubois LPN - 04/06/2019 2:38 PM PHARMACY TECHNICIAN PROGRAM DIRECTOR Pt states she has had maybe one dose of warfarin in the past 10 days. She is hes itant to start it because she drinks heavily after the of her son. She is agreeable to start 1.5mg daily now & check her INR 04/13/19. She is afraid to take a larger amount of warfarin r/t her drinking. Table 7. Spoke to patient regarding results and recommendation and next test date and patient confirmed an understanding to all information. MACY TECHNICIAN PROGRAM DIRECTOR documented in this encounter Plan of Treatment Not on filedocumented as of this encounter Procedures Comments Procedure Name Priority Date/Time Associated Diag nosis PROTIME-INR Routine 04/06/2019 documented in this encounter Results * Protime-INR (04/06/2019) INR 1.5 (A)Comment: start warfarin 2 - 3 1.5mg daily: recheck INR 04/13/19 Specimen Blood documented in this encounter Visit Diagnoses Diagnosis [facility] current use of anticoagulant therapy Paroxysmal atrial fibrillation (HCC) Atrial fibrillation Atrial flutter, unspecified type (HCC) documented in this encounter
--- OUTSIDE RECORDS SUMMARY | 2019-08-31 20:37 | XMS REPORT | Encounter Summary ---
Author Author [facility] Organization [facility] Address Unknown Phone Unavailable Care Team Providers Care Filter Washer Name Role Phone Yulissa Zapata PCP Encounter Details Care Team Description Date Type Department Mirna Pratt LPN exterminator helper current use of anticoagulant t herapy; Paroxysmal atrial fibrillation (HCC); Atrial flutter, unspecified type (HCC) 06/24/2019 Anticoag visit [facility] [address] [place] [address] Social History Date Tobacco Use Types Packs/Day [...] as of this encounter Progress Notes * Mirna Pratt LPN - 06/24/2019 4:26 PM CDT Pt testing with home monitor. Table 7. Spoke with pt and gave recommendations and they v/shakila Meza LPN documented in this encounter Plan of Treatment Not on filedocumented as of this encounter Procedures Comments Procedure Name Priority Date/Time Associated Diag nosis PROTIME-INR Routine 06/24/2019 documented in this encounter Results * Protime-INR (06/24/2019) INR 2.8Comment: Recommend continue 2 - 3 1.5 mg every day, retest 07/08/19 Specimen Blood documented in this encounter Visit Diagnoses Diagnosis [facility] current use of anticoagulant therapy Paroxysmal atrial fibrillation (HCC) Atrial fibrillation Atrial flutter, unspecified type (HCC) documented in this encounter
--- OUTSIDE RECORDS SUMMARY | 2019-08-31 20:37 | XMS REPORT | Encounter Summary ---
Author Author [facility] Organization [facility] Address Unknown Phone Unavailable Care Team Providers Care Bridge Rigger Name Role Phone Yulissa Zapata PCP Encounter Details Care Team Description Date Type Department Erwin Taylor LPN intermediate card tender current use of anticoagulant t herapy; Paroxysmal atrial fibrillation (HCC); Atrial flutter, unspecified type (HCC) 08/13/[address] [facility] [address] [place] [address] Social History Date Tobacco Use Types Packs/Day [...] as of this encounter Progress Notes * Erwin Taylor LPN - 08/13/2019 3:15 PM CDT Patient uses a home monitor. Table 7. Spoke to patient regarding results. Provided recommendations and rechec k date and they voiced their understanding. Patient denies any changes to medication or diet. documented in this encounter Plan of Treatment Not on filedocumented as of this encounter Procedures Comments Procedure Name Priority Date/Time Associated Diag nosis PROTIME-INR Routine 08/13/2019 documented in this encounter Results * Protime-INR (08/13/2019) INR 3.6 (A)Comment: Recommend; 2 - 3 Hold tonight then resume 1.5 mg daily and recheck INR 08/20/19 Specimen Blood Resulting Agency Comment documented in this encounter Visit Diagnoses Diagnosis senior living current use of anticoagulant therapy Paroxysmal atrial fibrillation (HCC) Atrial fibrillation Atrial flutter, unspecified type (HCC) documented in this encounter
--- OUTSIDE RECORDS SUMMARY | 2019-08-31 20:37 | XMS REPORT | Encounter Summary ---
Author Author [facility] Organization [facility] Address Unknown Phone Unavailable Care Team Providers Care Hat Marker Name Role Phone Yulissa Zapata PCP Encounter Details Care Team Description Date Type Department Mary Jo Melvin LPN keno terminal operator current use of anticoagulant t herapy; Paroxysmal atrial fibrillation (HCC); Atrial flutter, unspecified type (HCC) 07/13/2019 Anticoag visit [facility] [address] [place] [address] [address] [place] [address] Social History Date Tobacco Use Types Packs/Day [...] as of this encounter Progress Notes * Mary Jo Melvin LPN - 07/13/2019 3:27 PM CDT Table 7. Home Monitor Testing. Spoke with pt and gave results and recommendation s. Pt verbalized understanding. HERB Garcia * Liudmila Zarate APRN - 07/13/2019 3:27 PM CDT I have reviewed the INR result and agree with the outlined warfarin dosing recom mendations. documented in this encounter Plan of Treatment Not on filedocumented as of this encounter Procedures Comments Procedure Name Priority Date/Time Associated Diag nosis PROTIME-INR Routine 07/13/2019 documented in this encounter Results * Protime-INR (07/13/2019) INR 2.7Comment: continue 1.5 mg 2 - 3 every day retest 08/04/19 Specimen Blood Resulting Agency Comment documented in this encounter Visit Diagnoses Diagnosis keno terminal operator current use of anticoagulant therapy Paroxysmal atrial fibrillation (HCC) Atrial fibrillation Atrial flutter, unspecified type (HCC) documented in this encounter
--- OUTSIDE RECORDS SUMMARY | 2019-08-31 20:37 | XMS REPORT | Encounter Summary ---
Author Author [facility] Organization [facility] Address Unknown Phone Unavailable Care Team Providers Care Automobile Wrecker Name Role Phone Yulissa Zapata PCP Reason for Visit * Reason Comments Lab orders Encounter Details Care Team Description Date Type Department Ibis Goss LPN Lab orders 06/17/2019 Telephone [facility] [address] [facility] [address] [place] [address] Social History Date Tobacco Use Types Packs/Day [...] encounter Miscellaneous Notes * Telephone Encounter - Ibis Goss LPN - 06/17/2019 7:40 AM CDT Request from SLR out pt lab for new lab order ; New order placed in Epic today b denilson ESTEVEZ documented in this encounter Plan of Treatment Not on filedocumented as of this encounter Visit Diagnoses Diagnosis Paroxysmal atrial fibrillation (HCC) Atrial fibrillation 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 documented in this encounter
--- OUTSIDE RECORDS SUMMARY | 2019-08-31 20:37 | XMS REPORT | Encounter Summary ---
Author Author [facility] Organization [facility] Address Unknown Phone Unavailable Care Team Providers Care Lasting Room Supervisor Name Role Phone Yulissa Zapata PCP Encounter Details Care Team Description Date Type Department Erwin Taylor LPN Atrial flutter, unspecified type (HCC); [facility] current use of anticoagulant therapy; Paroxysmal atrial fibrillation (HCC) 04/23/2019 Anticoag visit [facility] [address] [facility] [address] [place] [address] Social History Date Tobacco Use Types Packs/Day [...] Progress Notes * Erwin Taylor LPN - 04/23/2019 12:45 PM LIVESTOCK NUTRITIONIST Patient uses a home monitor. Table 7. Spoke to patient regarding results. Provided recommendation and next te st date and she voiced understanding. Patient did not get the voicemail left last week with recs to increase Warfarin. She has been taking 1.5 mg daily. STOCK NUTRITIONIST documented in this encounter Plan of Treatment Not on filedocumented as of this encounter Procedures Comments Procedure Name Priority Date/Time Associated Diag nosis PROTIME-INR Routine 04/23/2019 documented in this encounter Results * Protime-INR (04/23/2019) INR 2.0Comment: Recommend; 2 - 3 Continue 1.5 mg daily and recheck INR 04/30/19 Specimen Blood Resulting Agency Comment documented in this encounter Visit Diagnoses Diagnosis Atrial flutter, unspecified type (HCC) keno terminal operator current use of anticoagulant therapy Paroxysmal atrial fibrillation (HCC) Atrial fibrillation documented in this encounter
--- OUTSIDE RECORDS SUMMARY | 2019-08-31 20:37 | XMS REPORT | Encounter Summary ---
Author Author [facility] Organization [facility] Address Unknown Phone Unavailable Care Team Providers Care Formula Clerk Name Role Phone Yulissa Zapata PCP Reason for Visit * Reason Comments INR Reminder Encounter Details Care Team Description Date Type Department Vickie Bradley RN INR Reminder 07/13/2019 [place] [address] Social History Date Tobacco Use Types Packs/Day [...] encounter Miscellaneous Notes * Telephone Encounter - Vickie Bradley NP - 07/13/2019 2:39 PM CDT INR Reminder Patient contacted for INR testing reminder. Patient's usual testing location: home monitor Patient plans next INR testing: at their usual location Patient states she checked her INR this morning with home monitor. Patient repor ts INR was 2.7 documented in this encounter Plan of Treatment Not on filedocumented as of this encounter Visit Diagnoses Not on filedocumented in this encounter
--- OUTSIDE RECORDS SUMMARY | 2019-08-31 20:37 | XMS REPORT | Encounter Summary ---
Author Author [facility] Organization [facility] Address Unknown Phone Unavailable Care Team Providers Care Workers Compensation Legal Secretary Name Role Phone Yulissa Zapata PCP Encounter Details Care Team Description Date Type Department Ayana Sánchez LPN Atrial flutter, unspecified type (HCC); cook helper dessert current use of anticoagulant therapy; Paroxysmal atrial fibrillation (HCC) 05/01/2019 Anticoag visit [facility] [address] [facility] [address] [place] [address] Social History Date Tobacco Use Types Packs/Day [...] as of this encounter Progress Notes * Ayana Sánchez LPN - 05/01/2019 9:18 AM LEAD RADIOLOGIC TECHNOLOGIST Spoke with patient. INR results and recommendations given per [facility] Table 7. Will recheck PT/INR in 1 week. Patient was instructed to seek immediate medic al attention for s/s of thrombosis or new pain/redness/swelling in legs, chest p ain or trouble breathing, blurry vision or other visual changes, or slurred spee ch. Precautions were given at this time. Patient repeated these instructions, an d verbalizes understanding. Advised to notify the [facility] clinic if any changes in medication other factors that could lead to decrease in INR. Missed 1 dose/ no diet changes/ no symptoms RADIOLOGIC TECHNOLOGIST documented in this encounter Plan of Treatment Not on filedocumented as of this encounter Procedures Comments Procedure Name Priority Date/Time Associated Diag nosis PROTIME-INR Routine 05/01/2019 documented in this encounter Results * Protime-INR (05/01/2019) INR 1.7Comment: Continue current 2 - 3 dose at 1.5 mg every day. retest 1 week Specimen Blood documented in this encounter Visit Diagnoses Diagnosis Atrial flutter, unspecified type (HCC) [facility] current use of anticoagulant therapy Paroxysmal atrial fibrillation (HCC) Atrial fibrillation documented in this encounter
--- OUTSIDE RECORDS SUMMARY | 2019-08-31 20:37 | XMS REPORT | Encounter Summary ---
Author Author [facility] Organization [facility] Address Unknown Phone Unavailable Care Team Providers Care Homemaker Companion Name Role Phone BennyYulissa rahman PCP Encounter Details Care Team Description Date Type Department Yary Nelson RN Gastroesophageal reflux disease with eso phagitis (Primary Dx) 04/10/2019 Orders Only [facility] [address] [address] Social History Date Tobacco Use Types Packs/Day [...] as of this encounter Visit Diagnoses Diagnosis Gastroesophageal reflux disease with es ophagitis documented in this encounter
--- OUTSIDE RECORDS SUMMARY | 2019-08-31 20:37 | XMS REPORT | Encounter Summary ---
Author Author [facility] Organization [facility] Address Unknown Phone Unavailable Care Team Providers Care Filtration Operator Name Role Phone Yulissa Zapata PCP Encounter Details Care Team Description Date Type Department Mirna Pratt LPN Atrial flutter, unspecified type (HCC); correction current use of anticoagulant therapy; Paroxysmal atrial fibrillation (HCC) 04/15/2019 Anticoag visit [facility] [address] [facility] [address] [place] [address] Social History Date Tobacco Use Types Packs/Day [...] Progress Notes * Mirna Pratt LPN - 04/15/2019 1:35 PM VICE PRESIDENT OF HUMAN RESOURCES Pt testing with home monitor. Table 7. Called pt and left detailed message with recommendations and call back numberDean Meza LPN PRESIDENT OF HUMAN RESOURCES documented in this encounter Plan of Treatment Not on filedocumented as of this encounter Procedures Comments Procedure Name Priority Date/Time Associated Diag nosis PROTIME-INR Routine 04/15/2019 documented in this encounter Results * Protime-INR (04/15/2019) INR 1.6Comment: Recommend increase 2 - 3 dose to 2 mg every Mon, Wed, Fri; 1.5 mg all other days, retest 2/12/20 Specimen Blood documented in this encounter Visit Diagnoses Diagnosis Atrial flutter, unspecified type (HCC) correction current use of anticoagulant therapy Paroxysmal atrial fibrillation (HCC) Atrial fibrillation documented in this encounter
--- OUTSIDE RECORDS SUMMARY | 2019-08-31 20:37 | XMS REPORT | Encounter Summary ---
Author Author [facility] Organization [facility] Address Unknown Phone Unavailable Care Team Providers Care Geriatric Physical Therapist Name Role Phone Yulissa Zapata PCP Reason for Visit * Reason Comments INR Reminder 1st Attempt Encounter Details Care Team Description Date Type Department Cally Paige, EXPLOSIVE ORDNANCE DISPOSAL MANAGER [address] [place] [address] [phone] INR Reminder (1st Attempt ) 05/01/2019 Telephone [facility] [address] [facility] [address] [place] [address] Social History Date Tobacco Use Types Packs/Day [...] * Telephone Encounter - Nilson Holguin - 05/01/2019 8:46 AM BEEF GRADER Called pt stated that she forgot to Check it will be getting Check right now . TQ GRADER documented in this encounter Plan of Treatment Not on filedocumented as of this encounter Visit Diagnoses Not on filedocumented in this encounter
--- OUTSIDE RECORDS SUMMARY | 2019-08-31 20:37 | XMS REPORT | Encounter Summary ---
Author Author [facility] Organization [facility] Address Unknown Phone Unavailable Care Team Providers Care Human Resources Leader Name Role Phone Yulissa Zapata PCP Encounter Details Care Team Description Date Type Department Erwin Taylor LPN 03/24/2019 Telephone [facility] [address] [facility] [address] [place] [address] Social History Date Tobacco Use Types Packs/Day [...] encounter Miscellaneous Notes * Telephone Encounter - Erwin Taylor LPN - 03/24/2019 4:57 PM POLICE SERGEANT PRECINCT Patient called and left voicemail regarding her home monitor. She was supposed t o check her INR but used up her last 2 strips attempting it and was unable to ge t a result. She states she ordered strips today but wanted to know if it was ok to wait for the strips to arrive or if she needed to go to a lab and have INR dr mckinney. This nurse called patient back but there was no answer. Left voicemail garrett coats that patient find a [facility] draw station near where she is staying and then call [facility] to let us know the location and # to fax an order to have her PT/INR drawn. Patient's INR was 5.5 on 03/17/19. CE SERGEANT PRECINCT documented in this encounter Plan of Treatment Not on filedocumented as of this encounter Visit Diagnoses Not on filedocumented in this encounter
--- OUTSIDE RECORDS SUMMARY | 2019-08-31 20:37 | XMS REPORT | Encounter Summary ---
Author Author [facility] Organization [facility] Address Unknown Phone Unavailable Care Team Providers Care Micrographics Services Supervisor Name Role Phone Yulissa Zapata PCP Encounter Details Care Team Description Date Type Department Tamica Forrest RN 07/09/2019 Telephone [facility] [address] [place] [address] Social History Date Tobacco Use Types Packs/Day [...] encounter Miscellaneous Notes * Telephone Encounter - Tamica Forrest RN - 07/09/2019 11:18 AM CDT Pt called stating she had forgotten to get a refill on her dofetilide and is marcelina ost out. She is now back from [place] and is having more issues, so is going to call [facility] lab scheduling to start working on scheduling her ablation. Rx routed pe r pt's request. documented in this encounter Plan of Treatment Not on filedocumented as of this encounter Visit Diagnoses Not on filedocumented in this encounter
--- OUTSIDE RECORDS SUMMARY | 2019-08-31 20:37 | XMS REPORT | Encounter Summary ---
Author Author [facility] Organization [facility] Address Unknown Phone Unavailable Care Team Providers Care Silver Spray Worker Name Role Phone Yulissa Zapata PCP Encounter Details Care Team Description Date Type Department Lian Pablo LPN skilled nursing current use of anticoagulant t herapy; Paroxysmal atrial fibrillation (HCC); Atrial flutter, unspecified type (HCC) 04/01/2019 Anticoag visit [facility] [address] [place] [address] [address] [place] [address] Social History Date Tobacco Use Types Packs/Day [...] as of this encounter Progress Notes * Lian Pablo LPN - 04/01/2019 3:04 PM PANELBOARD OPERATOR Kristyn Cotto NP [facility] I reviewed the INR result and agree with the outlined warfarin dosing recommenda tions. Can we forward discussion to her PCP to make sure she is aware? Maybe a candidat e for DOAC? Attempted to route message to PCP message populates "Yulissa Zapata MD cannot re ceive this message due to one of the following reasons: 1. The user does not exi st any more or is inactive in the database. 2. The user does not have sufficient In Basket security to view this message." Routed message to Dr. Daugherty and Team as BRENDAI. "Dr. Daugherty: KISHA with you on 12/30/18. Aislinn Cotto NP was asking if pt is a possi ble candidate for DOAC? Please advise. Thanks EP: BRENDAI-Thanks." LBOARD OPERATOR * Lian Pablo LPN - 04/01/2019 3:04 PM PANELBOARD OPERATOR Table 7. Spoke to patient regarding results and she stated "I haven't taken any warfarin". Asked pt when her last dose of warfarin was and pt stated on 03/17. Inf ormed per chart we have reached out to pt requesting she recheck rusty and pt sta nakita "I know, I just was worried my INR would get too high" Pt explained that she has a glass of wine every night since her son passed suddenly due to overdose. Requested pt keep in contact with [facility] and communicate to keep pt safe as INR is sub-therapeutic now which puts her at possible risk of clots. Pt v/u to this. Pt was agreeable to restart warfarin. Stressed importance of compliance of medic ation and she v/u. Provided recommendation and next test date, patient confirmed an understanding t o all information. LBOARD OPERATOR documented in this encounter Plan of Treatment Not on filedocumented as of this encounter Procedures Comments Procedure Name Priority Date/Time Associated Diag nosis PROTIME-INR Routine 04/01/2019 documented in this encounter Results * Protime-INR (04/01/2019) INR 1.5Comment: Please see note. 2 - 3 Recommend: take 2.5 mg tonight, 1.5 mg tomorrow and recheck INR on 1.24.20 Specimen Blood Resulting Agency Comment documented in this encounter Visit Diagnoses Diagnosis skilled nursing current use of anticoagulant therapy Paroxysmal atrial fibrillation (HCC) Atrial fibrillation Atrial flutter, unspecified type (HCC) documented in this encounter
--- OUTSIDE RECORDS SUMMARY | 2019-08-31 20:37 | XMS REPORT | Encounter Summary ---
Author Author [facility] Organization [facility] Address Unknown Phone Unavailable Care Team Providers Care Slater Apprentice Name Role Phone Yulissa Zapata PCP Reason for Visit * Reason Comments INR Reminder 1st Attempt Encounter Details Care Team Description Date Type Department Kalli Wiggins NP [address] [facility] [facility] [address] [place] [address] [phone] INR Reminder (1st Attempt ) 04/14/2019 Telephone [facility] [address] [place] [address] Social History Date Tobacco Use Types Packs/Day [...] * Telephone Encounter - Nilson Holguin - 04/14/2019 8:24 AM PROJECT DEVELOPMENT MANAGER Called pt stated that she was traveling yesterday but will be getting INR Checke d sometime today 04/14/2019. TQ ECT DEVELOPMENT MANAGER documented in this encounter Plan of Treatment Not on filedocumented as of this encounter Visit Diagnoses Not on filedocumented in this encounter
--- OUTSIDE RECORDS SUMMARY | 2019-08-31 20:37 | XMS REPORT | Encounter Summary ---
Author Author [facility] Organization [facility] Address Unknown Phone Unavailable Care Team Providers Care Fruit Thinner Machine Operator Name Role Phone Yulissa Zapata PCP Reason for Visit * Reason Comments INR Reminder 1st Attempt Encounter Details Care Team Description Date Type Department Kristyn Basurto PA-C [address] [place] [address] [phone] INR Reminder (1st Attempt ) 05/14/2019 Telephone [facility] [address] [place] [address] [address] [place] [address] Social History Date Tobacco Use Types Packs/Day [...] * Telephone Encounter - Nilson Holguin - 05/14/2019 8:18 AM KENNEL MANAGER DOG TRACK Called pt Left Detail Message on VML for a return call in regards to INR being p ast due. TQ EL MANAGER DOG TRACK documented in this encounter Plan of Treatment Not on filedocumented as of this encounter Visit Diagnoses Not on filedocumented in this encounter
--- OUTSIDE RECORDS SUMMARY | 2019-08-31 20:37 | XMS REPORT | Encounter Summary ---
Author Author [facility] Organization [facility] Address Unknown Phone Unavailable Care Team Providers Care Qa Lead Name Role Phone Yulissa Zapata PCP Reason for Referral * Consultation (Urgent) Referred By Contact Referred To Contact Status Reason Specialty Diagnoses / [place] [address] [facility] [address] [place] [address] Damon Gallegos MD [address] [facility] [address] [place] [address] Authorized Specialty Services Gastroenterology Diagnoses Required Esophageal dysphagia Gastroesophageal reflux disease with esophagitis Encounter Details Care Team Description Date Type Department Yary Nelson RN 04/13/2019 Telephone [facility] [address] [facility] [address] [place] [address] Social History Date Tobacco Use Types Packs/Day [...] Telephone Encounter - Yary Nelson RN - 04/13/2019 10:12 AM CYBER SECURITY SPECIALIST I just sent a message to cholesterol that the patient should be referred to [facility] t o discuss an endoscopic procedure to address achalasia. CALL TO PT TO LET HER KNOW ABOUT THE REFERRAL FOR Damon Gallegos MD AND FOR HER TO CALL TO SCHEDULE. SHE ALSO STATED THAT SHE NEED THE PRILOSEC CALLED IN TO [facility] . ROBERTO ANDREA R SECURITY SPECIALIST documented in this encounter Plan of Treatment Order Schedule Name Type Priority Associated Diag noses Expected: 04/13/2019, Expires: 0 Amb Referral To Outpatient Routine Esophageal dys phagia Gastroenterology Referral Gastroesophageal re flux disease with esophagitis documented as of this encounter Visit Diagnoses Diagnosis Esophageal dysphagia Dysphagia, pharyngoesophageal phase Gastroesophageal reflux disease with es ophagitis documented in this encounter
--- OUTSIDE RECORDS SUMMARY | 2019-08-31 20:37 | XMS REPORT | Encounter Summary ---
Author Author [facility] Organization [facility] Address Unknown Phone Unavailable Care Team Providers Care Sharepoint Solutions Developer Name Role Phone Yulissa Zapata PCP Reason for Visit * Reason Comments Other Encounter Details Care Team Description Date Type Department Owen Dickens MD [address] [facility] [address] [place], [place] [id number] Other 07/09/2019 Refill [facility] [address] [facility] [address] [place] [address] Social History Date Tobacco Use [...]
--- OUTSIDE RECORDS SUMMARY | 2019-08-31 20:37 | XMS REPORT | Encounter Summary ---
Author Author [facility] Organization [facility] Address Unknown Phone Unavailable Care Team Providers Care Bander And Cellophaner Helper Machine Name Role Phone Yulissa Zapata PCP Reason for Visit * Reason Comments Lab orders INR standing order Encounter Details Care Team Description Date Type Department France Louis LPN Lab orders (INR standing order) 07/29/2019 Telephone [facility] [address] [facility] [address] [place] [address] Social History Date Tobacco Use Types Packs/Day [...] encounter Miscellaneous Notes * Telephone Encounter - France Louis LPN - 07/29/2019 11:09 AM CDT INR standing order renewed and faxed to Jason Knight LPN documented in this encounter Plan of Treatment Order Schedule Name Type Priority Associated Diag noses 26 Occurrences starting 07/29/2019 until 01/29/2020 Prothrombin Time/INR Lab Routine Paroxysma l atrial fibrillation (HCC) documented as of this encounter Visit Diagnoses Diagnosis Paroxysmal atrial fibrillation (HCC) Atrial fibrillation salvage determiner current use of anticoagulant therapy documented in this encounter
--- OUTSIDE RECORDS SUMMARY | 2019-08-31 20:37 | XMS REPORT | Encounter Summary ---
Author Author [facility] Organization [facility] Address Unknown Phone Unavailable Care Team Providers Care Clinical Unit Coordinator Name Role Phone Yulissa Zapata PCP Reason for Visit * Reason Comments RECORDS Encounter Details Care Team Description Date Type Department Yary Nelson, RN RECORDS 04/24/2019 Telephone [facility] [address] [address] Social History Date Tobacco Use Types Packs/Day [...] Telephone Encounter - Yary Nelson RN - 04/24/2019 2:03 PM SENIOR WINDOWS SYSTEMS ENGINEER PT CALLED IN TO GET SOME RECORDS FAXED TO DR [place] OFFICE FOR THE REFERRAL. [facility] SEND TO [phone] ROBERTO ANDREA OR WINDOWS SYSTEMS ENGINEER documented in this encounter Plan of Treatment Not on filedocumented as of this encounter Visit Diagnoses Not on filedocumented in this encounter
--- OUTSIDE RECORDS SUMMARY | 2019-08-31 20:37 | XMS REPORT | Encounter Summary ---
Author Author [facility] Organization [facility] Address Unknown Phone Unavailable Care Team Providers Care Framing And Hanging Name Role Phone Yulissa Zapata PCP Encounter Details Care Team Description Date Type Department Erica Lopez LPN Atrial flutter, unspecified type (HCC); intermodal owner operator truck driver current use of anticoagulant therapy; Paroxysmal atrial fibrillation (HCC) 05/08/2019 Anticoag visit [facility] [address] [place] [address] [address] [place] [address] Social History Date Tobacco Use Types Packs/Day [...] as of this encounter Progress Notes * Erica Lopez LPN - 05/08/2019 12:52 PM FIRE ALARM DISPATCHER -patient verbalized understanding of current INR instructions--dh ALARM DISPATCHER * Erica Lopez LPN - 05/08/2019 12:52 PM FIRE ALARM DISPATCHER Per [facility] Warfarin Outpatient Anticoagulation Guide: INR:2.1 hm. INR POINT ESTIMA TE GOAL is: 2.5. Indications: aflutter, PAF. Patient has been on Coumadin / War farin > than 1 month. Table # 7. Recommend continue 1.5mg daily and recheck INR 3-4-20.-Erica Lopez LPN ALARM DISPATCHER documented in this encounter Plan of Treatment Not on filedocumented as of this encounter Procedures Comments Procedure Name Priority Date/Time Associated Diag nosis PROTIME-INR Routine 05/08/2019 documented in this encounter Results * Protime-INR (05/08/2019) INR 2.1Comment: Recommend continue 2 - 3 1.5mg daily and recheck INR 3-4-20 Specimen Blood Resulting Agency Comment documented in this encounter Visit Diagnoses Diagnosis Atrial flutter, unspecified type (HCC) shelter current use of anticoagulant therapy Paroxysmal atrial fibrillation (HCC) Atrial fibrillation documented in this encounter
--- OUTSIDE RECORDS SUMMARY | 2019-08-31 20:37 | XMS REPORT | Encounter Summary ---
Author Author [facility] Organization [facility] Address Unknown Phone Unavailable Care Team Providers Care Braille Proofreader Name Role Phone Yulissa Zapata PCP Reason for Visit * Reason Comments Referral status Encounter Details Care Team Description Date Type Department Yary Nelson RN Referral status 04/13/2019 Telephone [facility] [address] [facility] [address] [place], [place] [id number] Social History Date Tobacco Use Types Packs/Day [...] Encounter - Yary Nelson RN - 04/13/2019 2:37 PM SILVERWARE ETCHER ALREADY CALLED PT FOR THE REFERRAL SHE IS IN [place] BUT SHE WILL CALL FOR AN REGULO MEJIA RN ERWARE ETCHER * Telephone Encounter - Yary Nelson RN - 04/13/2019 2:37 PM SILVERWARE ETCHER ----- Message from Don Kang NP sent at 04/13/2019 12:41 PM SILVERWARE ETCHER ----- Reviewed her case with Dr. De La Torre and Dr. Christy. Dr. Carlson recommends referral to BUBBA Gallegos at the [facility] for their evaluation for POEM pr césar. Chacho Arnold ERWARE ETCHER documented in this encounter Plan of Treatment Not on filedocumented as of this encounter Visit Diagnoses Not on filedocumented in this encounter
--- OUTSIDE RECORDS SUMMARY | 2019-08-31 20:38 | XMS REPORT | Encounter Summary ---
Author Author [facility] Organization 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
--- OUTSIDE RECORDS SUMMARY | 2019-08-31 20:38 | XMS REPORT | Encounter Summary ---
Author Author [facility] Organization [facility] Address Unknown Phone Unavailable Care Team Providers Care Chairlift Operator Name Role Phone Yulissa Zapata PCP Reason for Visit * Reason Comments INR Reminder 1st attempt to contact jair ent regarding overdue INR. Constance ESTEVEZ Encounter Details Care Team Description Date Type Department Kristi Chapin LPN INR Reminder (1st attempt to contact pat ient regarding overdue INR. Constance ESTEVEZ) 02/25/2019 Telephone [facility] [address] [address] [place] [address] Social History Date Tobacco Use Types Packs/Day [...] encounter Miscellaneous Notes * Telephone Encounter - Kristi Chapin LPN - 02/25/2019 1:00 PM BEEF CATTLE SPECIALIST 02-25-2019 Spoke with Brynn regarding her overdue INR. Brynn stated she will h ave it done by Saturday02-27-2019. CATTLE SPECIALIST documented in this encounter Plan of Treatment Not on filedocumented as of this encounter Visit Diagnoses Diagnosis shelter current use of anticoagulant therapy Paroxysmal atrial fibrillation (HCC) Atrial fibrillation documented in this encounter
--- OUTSIDE RECORDS SUMMARY | 2019-08-31 20:38 | XMS REPORT | Encounter Summary ---
Author Author [facility] Organization [facility] Address Unknown Phone Unavailable Care Team Providers Care Pit Steward Name Role Phone Yulissa Zapata PCP Reason for Visit * Auth/Cert (Routine) Referred By Contact Referred To Contact Status Reason Specialty Diagnoses / Procedures Rosendo King MD [address] [facility] [place] [address] New Request Procedures Case request operating room: ESOPHAGOGASTRODUOD ENOSCOPY (EGD) Encounter Details Care Team Description Date Type Department Jewels Sutherland MD [address] [place], [place] [id number] Enzo Soares MD [address] [facility] [address] [place] [address] [phone] 02/12/[address] [facility] [address] [place] [address] Anesthesia Record Responsible Anesthesiologist Anesthesia Start Time Anesthesi a Stop Time Procedure Name Jewels Sutherland MD 02/12/19 1442 02/12/19 1520 ESOPHAGOGASTRODUODENOSCOP Y, WITH BOTULINUM TOXIN INJECTION (N/A ) Date Time Event Comment 1437 1439 AN Equip Check 1442 In room 1442 An Start 1442 An Start Data 1445 Preoxygenated Prior to Induction 1446 Pt eval immediately prior to anesthesia 1446 An Induction 1447 RSI/Cricoid 1447 An Intubation 1448 Anesthesia Ready 1449 Procedure start - Primary Case 1453 Procedure stop - Primary case 1458 Spontaneous respirations 1505 Adequate Tidal Volume 1506 FiO2 to 100% Prior to Suctioning 1509 Suction 1510 An Extubation 1511 Oxygen per nasal cannula 1514 an stop data 1515 Transported with O2 1515 Out of Room 1520 Handoff I completed my SBAR handoff to the receiving nurse in the PACU/ICU/OB Patient and PACU/ICU/OB nurse identifie d Discussed patient medical history Discussed procedure Reviewed intraopera tive anesthetic management and issues/concerns Discussed expectation f or early post-procedure period Questions from PACU/ICU/OB team address ed 1520 An Stop Meds Name Total lidocaine 1% (PF) 50 mg propofol 10mg/mL 200 mg succinylcholine (ANECTINE) 20 mg/mL 100 mg injection ondansetron 2mg/mL 4 mg lactated ringers 500 mL * Name Cell Saver Blood Intake O2 N2O Air EtSEVO EtISO EtDES EtN2O * No blood administrations on file. Removal Type Details Placement Peripheral Date: 02/08/19; Time: 49; Size 02/08 0050 by Jono IV (gauge): 20 G; Orientation: Left; Cecille garner RN Location: Antecubital 02/12/19 151 by MARIN Link Non-Surgic Date: 02/12/19; Time: 144; Able to mas k 02/12/19 144 by Vahid etienne Airway ventilate prior to placement: N/A; MARIN Penaloza Placed By: Embossed Or Impressed Lettering Painter; Site: Oral; Device: ETT - Cuffed; Size: 7; Units: Millimeters; Method: Laryngoscope, Standard Stylet; Blade Type: MAC; Blade Size: 3; Attempts: 1; Grade View: I; Misc: Cricoid Pressure; Airway Observations: oropharynx clear, cords visualized; Placement Verified By: Auscultation, Capnometry; Secured At (cm): 20; Measured From: Teeth; Removal Date: 02/12/19; Removal Time: 1509 documented in this encounter Social History Date Tobacco Use Types Packs/Day [...] as of this encounter Miscellaneous Notes * Anesthesia Postprocedure Evaluation - Jewels Sutherland MD - 02/12/2019 3:49 PM RETAIL LOSS PREVENTION OFFICER Anesthesia Post Evaluation Procedure(s):ESOPHAGOGASTRODUODENOSCOPY, WITH BOTULINUM TOXIN INJECTION Surgeon: Chau Christy MD Patient Evaluated in: PACU Patient Participation: complete - patient participated Level of Consciousness: awake and alert , with adequate pain management. Airway Patency: patent Respiratory Status: spontaneous ventilation and nasal cannula Cardiovascular Status: hemodynamically stable (a-fib) Postoperative Hydration: euvolemic Postop Nausea/Vomiting: no PONV in PACU Anesthetic Complications: No Appropriate for discharge from anesthesia care, no apparent anesthesia related c omplication NSR to A-fib intraop. HR 110's. BP stable. DC to telemetry ANE Post Eval Vitals Most Recent Value BP (!) 132/92 filed at 02/12/2019 1520 Pulse (!) 123 filed at 02/12/2019 1520 Temp 36.4 C (97.5 F) filed at 02/12/2019 1520 Resp 22 filed at 02/12/2019 1520 SpO2 93 % filed at 02/12/2019 1520 IL LOSS PREVENTION OFFICER * Anesthesia Preprocedure Evaluation - Jewels Sutherland MD - 02/12/2019 2:35 PM RETAIL LOSS PREVENTION OFFICER Anesthesia Evaluation Patient summary and Nursing notes reviewed No history of anesthetic complications Airway Mallampati: II TM distance: <3 FB Neck ROM: full Adequate mouth opening No prominent facial hair No mandibular prognathism past upper incisors. Dental - normal exam Pulmonary Breath sounds clear to auscultation, Lung sounds: normal, (+) confirmed sleep apnea CPAP and no treatment, pneumonia, Comment: Aspiration during a previous procedure. Was on O2, but now on RA Cardiovascular Heart sounds: normal Rhythm: regular Rate: normal Exercise tolerance: > or = 4 METS (+) hypertension, hyperlipidemia, , chronic CHF, dysrhythmias atrial fib/flutte r, Comment: 11/24/2018 Echo IMPRESSION 1. Normal LV and RV size and systolic function. LVEF estimated at 65%, 2. No significant valvular abnormalities. 3. Spontaneous echocontrast in the LA appendage but no visible thrombus. Neuro/Psych - negative ROS GI/Hepatic/Renal (+) well controlled GERD, Comments: Esophageal stricture Concern for aspiration Currently has reflux symptoms Endo/Other - negative ROS Abdominal Obstetrics HEENT Musculoskeletal - negative ROS Hematology/Oncology (+) anemia, Anesthesia Plan ASA 3 Type: general () Plan to include: RSI and oral ETT Plan discussed with anesthesiologist studio assistant. Anesthetic plan and risks discussed with patient. Recovery plan: Phase II PONV Risk: low Prophylactic antiemetics medically inappropriate. Notes I have seen and examined the patient, reviewed the chart and discussed the risks and benefits of the anesthetic plan. The patient would like to proceed with the procedure as planned. Jewels Sutherland M.D. IL LOSS PREVENTION OFFICER documented in this encounter Plan of Treatment Not on filedocumented as of this encounter Visit Diagnoses Not on filedocumented in this encounter Administered Medications Action Date Dose Rate Site Medication Order MAR Action 02/12/2019 2:30 PM RETAIL LOSS PREVENTION OFFICER lactated ringers infusion New Bag Continuous PRN, Starting Gabby 02/12/19 at 1430, Anesthesia Intra-op 02/12/2019 2:46 PM RETAIL LOSS PREVENTION OFFICER 50 mg lidocaine (pf) (XYLOCAINE-MPF) 10 mg/mL Given (1 %) injection As needed, Starting Gabby 02/12/19 at 1446 , Anesthesia Intra-op 02/12/2019 2:52 PM RETAIL LOSS PREVENTION OFFICER 4 mg ondansetron (ZOFRAN) injection Given As needed, Starting Gabby 02/12/19 at 1452 , Anesthesia Intra-op 02/12/2019 2:46 PM RETAIL LOSS PREVENTION OFFICER 200 mg propofol (DIPRIVAN) injection Given As needed, Starting Gabby 02/12/19 at 1446 , Anesthesia Intra-op 02/12/2019 2:46 PM RETAIL LOSS PREVENTION OFFICER 100 mg succinylcholine (ANECTINE) injection Given As needed, Starting Gabby 02/12/19 at 1446 , Anesthesia Intra-op documented in this encounter
--- OUTSIDE RECORDS SUMMARY | 2019-08-31 20:38 | XMS REPORT | Encounter Summary ---
Author Author [facility] Organization [facility] Address Unknown Phone Unavailable Care Team Providers Care Computer Network Specialist Name Role Phone Yulissa Zapata PCP Encounter Details Care Team Description Date Type Department Tamika Jason MA 02/16/2019 Telephone [facility] [address] [place] [address] [place] [address] Social History Date Tobacco Use Types Packs/Day [...] encounter Miscellaneous Notes * Telephone Encounter - Tamika Jason MA - 02/16/2019 8:17 AM TINNING EQUIPMENT TENDER LVM for the pt to return to my call to schedule f/u visit with Chris. Crockett ING EQUIPMENT TENDER documented in this encounter Plan of Treatment Not on filedocumented as of this encounter Visit Diagnoses Not on filedocumented in this encounter
--- OUTSIDE RECORDS SUMMARY | 2019-08-31 20:38 | XMS REPORT | Encounter Summary ---
Author Author [facility] Organization [facility] Address Unknown Phone Unavailable Care Team Providers Care Snuff Grinder And Screener Name Role Phone uYlissa Zapata PCP Reason for Visit * Reason Comments INR Reminder 1st Attempt Encounter Details Care Team Description Date Type Department Aleksander Heller, JOSUE [address] [place] [address] [phone] INR Reminder (1st Attempt ) 03/13/2019 Telephone [facility] [facility] [address] [place] [address] Social History Date Tobacco Use Types Packs/Day [...] * Telephone Encounter - Nilson Holguin - 03/13/2019 10:05 AM CARDIOVASCULAR SONOGRAPHER Called pt Left Detail Message on VML for a return call in regards to INR being p ast due. TQ IOVASCULAR SONOGRAPHER documented in this encounter Plan of Treatment Not on filedocumented as of this encounter Visit Diagnoses Not on filedocumented in this encounter
--- OUTSIDE RECORDS SUMMARY | 2019-08-31 20:38 | XMS REPORT | Encounter Summary ---
Author Author [facility] Organization [facility] Address Unknown Phone Unavailable Care Team Providers Care Senior Oracle Soa Developer Name Role Phone Yulissa Zapata PCP Reason for Referral * Surgical (Routine) Referred By Contact Referred To Contact Status Reason Specialty Diagnoses / Procedures Justin De La Torre MD [address] [place] [address] [facility] [id number] [place] [address] Closed Gastroenterology Diagnoses Esophageal dysphagia Gastroesophageal reflux disease, esophagitis presence not specified P rocedures Motility study, esophageal Encounter Details Care Team Description Date Type Department Justin De La Torre MD [address] [place] [address] [phone] Esophageal dysphagia; Gastroesophageal reflux disease, esophagitis presence not specified 03/16/2019 [facility] [id number] [place] [address] Social History Date Tobacco Use Types Packs/Day [...] history available. documented as of this encounter Last Filed Vital Signs Reading Time Taken Comments Vital Sign 131/77 03/16/2019 12:42 PM MAINTENANCE EQUIPMENT OPERATOR Blood Pressure 60 03/16/2019 12:42 PM MAINTENANCE EQUIPMENT OPERATOR Pulse 35.9 C (96.7 F) 03/16/2019 12:42 PM MAINTENANCE EQUIPMENT OPERATOR Temperature 20 03/16/2019 12:42 PM MAINTENANCE EQUIPMENT OPERATOR Respiratory Rate 96% 03/16/2019 12:42 PM MAINTENANCE EQUIPMENT OPERATOR Oxygen Saturation - - Inhaled Oxygen Concentration 88.9 kg (196 lb) 03/16/2019 12:42 PM MAINTENANCE EQUIPMENT OPERATOR Weight 165.1 cm (5' 5") 03/16/2019 12:42 PM MAINTENANCE EQUIPMENT OPERATOR Height 32.62 03/16/2019 12:42 PM MAINTENANCE EQUIPMENT OPERATOR Body Mass Index documented in this encounter Discharge Instructions * Pre-Procedure Instructions* Jewels Chapin RN - 03/09/2019 11:25 AM MAINTENANCE EQUIPMENT OPERATOR Called to confirm appointment for EMS at [facility] on March 16. Nothing to e at after midnight, may have clear liquids until 0900. Arrive at 1230 for proced ure at 1300. May take medications as prescribed Saturday AM. Plan to be at [facility] f or 1-1.5 hours. Does not need to bring a commercial front load driver as she will not be receiving an y sedation. Admission process reviewed. All questions answered, verbalized und erstanding. Instructed to call [phone] for additional questions or concern s. TENANCE EQUIPMENT OPERATOR documented in this encounter Medications at Time of Discharge Start Date End Date Medication Sig Dispensed Refills BIOTIN ORALIndications: Take 10,000 0 vitamin supplement mcg by mouth daily. BUDESONIDE Take 2 mg by 0 ORALIndications: mouth daily. infection 11/24/2018 carvedilol (COREG) 25 MG Take 1 tablet 60 tablet 11 tabletIndications: (25 mg total) chronic heart failure by mouth 2 (two) times a day. 07/17/2019 07/16/2020 diltiazem (CARDIZEM CD) Take 1 30 capsule 11 120 MG 24 hr capsule (120 capsuleIndications: mg total) by Paroxysmal atrial mouth daily. fibrillation (HCC) 09/04/2018 furosemide (LASIX) 40 MG Take 40 mg by 0 tabletIndications: edema mouth daily. PARoxetine (PAXIL) 10 MG Take 10 mg by 0 tabletIndications: mouth daily. anxiety with depression 12/19/2018 12/19/2019 warfarin (COUMADIN) 1 MG Take 1 tablet 90 tablet 3 tabletIndications: Long (1 mg total) term current use of by mouth as antiarrhythmic drug, directed. Persistent atrial Take once fibrillation (HCC) daily as directed by INR 11/24/2018 warfarin (COUMADIN) 2.5 Take 1 tablet 30 tablet 11 MG tablet (2.5 mg total) by mouth every evening. 11/23/2018 07/09/2019 dofetilide (TIKOSYN) 125 Take 1 60 capsule 6 MCG capsuleIndications: capsule (125 cardioversion of atrial mcg total) by fibrillation, paroxysmal mouth every supraventricular 12 (twelve) tachycardia hours. 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 09/04/2018 04/07/2019 potassium chloride Take 10 mEq 0 (KLOR-CON) 10 MEQ CR by mouth tabletIndications: daily. hypokalemia prevention documented as of this encounter Nursing Notes * Jewels Chapin RN - 03/16/2019 2:16 PM MAINTENANCE EQUIPMENT OPERATOR 1237 Patient received in GI lab for EMS study. Procedure explained and question s answered. Agreed to proceed. Verified and documented NPO status, medications , and medication allergies. VS documented in EPIC. Pain level of 0 on scale of 0-10 today. 1345 EMS completed per protocol with probe placed initially at 44cm without evid ence of trauma. Tolerated the study well with few complaints of discomfort relat ed to probe placement. Study reviewed for proximal LES location noted at 37.8 cm. 1350 Advised patient of potential for sore throat today and to phone physician's office next week for study results. Escorted to lobby for dismissal. TENANCE EQUIPMENT OPERATOR documented in this encounter Plan of Treatment Not on filedocumented as of this encounter Procedures Comments Procedure Name Priority Date/Time Associated Diag nosis WI ESOPHAGEAL MOTILITY Routine 03/16/2019 Esophag eal dysphagia STUDY, MANOMETRY 4:03 PM MAINTENANCE EQUIPMENT OPERATOR Gastroesophageal re flux disease, esophagitis presence not specified documented in this encounter Results * Motility study, esophageal (03/16/2019 4:03 PM MAINTENANCE EQUIPMENT OPERATOR) Narrative Performed At This result has an attachment that is n ot available. documented in this encounter Visit Diagnoses Diagnosis Esophageal dysphagia Dysphagia, pharyngoesophageal phase Gastroesophageal reflux disease, esopha gitis presence not specified documented in this encounter Administered Medications Action Date Dose Rate Site Medication Order MAR Action 03/16/2019 1:00 PM MAINTENANCE EQUIPMENT OPERATOR 1 application lidocaine (GLYDO) 2 % jelly 1 Given application 1 application, Topical, Once, Mon 0 at 1300, For 1 dose, Pre-op documented in this encounter
--- OUTSIDE RECORDS SUMMARY | 2019-08-31 20:38 | XMS REPORT | Encounter Summary ---
Author Author [facility] Organization [facility] Address Unknown Phone Unavailable Care Team Providers Care Audit Practice Intern Name Role Phone Yulissa Zapata PCP Encounter Details Care Team Description Date Type Department France Louis LPN jail current use of anticoagulant t herapy; Paroxysmal atrial fibrillation (HCC); Atrial flutter, unspecified type (HCC) 02/26/2019 Anticoag visit [facility] [address] [facility] [address] [place] [address] Social History Date Tobacco Use Types Packs/Day [...] as of this encounter Progress Notes * France Louis LPN - 02/26/2019 2:13 PM MANAGER OPERATIONS AND PROCUREMENT INR checked with home monitor [facility] Per [facility] AC Guideline: Afib: Table 7 chart 2.3-2.8:INR 2.5--recommend: cont. mary ann ing warfarin 2.5 mg every Mon, Wed, Fri: 1.5 mg all other days: retest in 2 week s 03.12.2019.---- Spoke with pt regarding INR dosing and recommendations, pt v/u. LET GER OPERATIONS AND PROCUREMENT documented in this encounter Plan of Treatment Not on filedocumented as of this encounter Procedures Comments Procedure Name Priority Date/Time Associated Diag nosis PROTIME-INR Routine 02/26/2019 documented in this encounter Results * Protime-INR (02/26/2019) INR 2.5Comment: INR 2 - 3 2.5--recommend: cont. taking warfarin 2.5 mg every Mon, Wed, Fri: 1.5 mg all other days: retest in 2 weeks Specimen Blood documented in this encounter Visit Diagnoses Diagnosis jail current use of anticoagulant therapy Paroxysmal atrial fibrillation (HCC) Atrial fibrillation Atrial flutter, unspecified type (HCC) documented in this encounter
--- OUTSIDE RECORDS SUMMARY | 2019-08-31 20:38 | XMS REPORT | Encounter Summary ---
Author Author [facility] Organization [facility] Address Unknown Phone Unavailable Care Team Providers Care Tire Stripper Name Role Phone Yulissa Zapata PCP Encounter Details Care Team Description Date Type Department Lorena Curry RN 02/23/2019 Abstract [facility] [address] [facility] [address] [place] [address] Social History Date Tobacco Use Types Packs/Day [...]
--- OUTSIDE RECORDS SUMMARY | 2019-08-31 20:38 | XMS REPORT | Encounter Summary ---
Author Author [facility] Organization [facility] Address Unknown Phone Unavailable Care Team Providers Care Piper Helper Name Role Phone Yulissa Zapata PCP Reason for Referral * Auth/Cert (Routine) Referred By Contact Referred To Contact Status Reason Specialty Diagnoses / Procedures Waldo Chavarria MD [address] [facility] [place] [address] New Request Procedures Case request operating room: ESOPHAGOGASTRODUOD ENOSCOPY (EGD) * Auth/Cert (Routine) Referred By Contact Referred To Contact Status Reason Specialty Diagnoses / Procedures Waldo Chavarria MD [address] [facility] [place] [address] New Request Procedures Case request operating room: ESOPHAGOGASTRODUOD ENOSCOPY (EGD) * Auth/Cert (Routine) Referred By Contact Referred To Contact Status Reason Specialty Diagnoses / Procedures Rosendo King MD [address] [place] [address] New Request Procedures Case request operating room: ESOPHAGOGASTRODUOD ENOSCOPY (EGD) Reason for Visit * Auth/Cert (Routine) Referred By Contact Referred To Contact Status Reason Specialty Diagnoses / Procedures Rosendo King MD [address] [facility] [place] [address] New Request Procedures Case request operating room: ESOPHAGOGASTRODUOD ENOSCOPY (EGD) Encounter Details Care Team Description Date Type Department Hospitalist, Physician Lennox Taylor MD [address] [place] [address] [phone] Marcus Bush DO [address] [place] [address] [phone] Paroxysmal atrial fibrillation (HCC) (Pr imary Dx); Dysphagia, unspecified type; Eosinophilic esophagitis; Encounter for consultation 02/07/2019 [facility] - Encounter [address] [facility] [address] 02/13/2019 [place] [address] Social History Date Tobacco Use Types Packs/Day [...] Signs Reading Time Taken Comments Vital Sign 109/64 02/13/2019 1:36 PM LIFE SKILLS TRAINER Blood Pressure 63 02/13/2019 1:36 PM LIFE SKILLS TRAINER Pulse 36.7 C (98 F) 02/13/2019 11:50 AM LIFE SKILLS TRAINER Temperature 20 02/13/2019 11:50 AM LIFE SKILLS TRAINER Respiratory Rate 95% 02/13/2019 11:50 AM LIFE SKILLS TRAINER Oxygen Saturation - - Inhaled Oxygen Concentration 90.4 kg (199 lb 4.8 oz) 02/13/2019 4:11 AM LIFE SKILLS TRAINER Weight 165.1 cm (5' 5") 02/07/2019 11:28 PM LIFE SKILLS TRAINER Height 33.17 02/07/2019 11:28 PM LIFE SKILLS TRAINER Body Mass Index documented in this encounter Discharge Summaries * Marcus Bush, - 02/13/2019 11:21 AM LIFE SKILLS TRAINER [facility] INTERACTIVE DEVELOPER Hospitalist Discharge Summary Patient Name: Pau Mccabe Age: 69 y.o. Sex: female Admit Date: 02/07/2019 Admitting Physician: Physician Hospitalist Length of Stay: 6 Days PCP of Record: Yulissa Zapata MD Discharge Diagnoses: Principal Problem: Esophageal dysphagia Active Problems: Paroxysmal atrial fibrillation (HCC) Aspiration pneumonia (HCC) Depression Essential hypertension JJ (obstructive sleep apnea) Esophageal stricture Dysphagia Warfarin anticoagulation On dofetilide therapy Obesity (BMI 30.0-34.9) Alcohol consumption of more than four drinks per week Resolved Problems: * No resolved hospital problems. * Procedures: 1. EGD: 02/09/19, unable to pass scope and fluid / food filled esophagus 2. EGD: 02/10/19, no evidence of stricture, possible achalasia 3. EGD: 02/12/19, botulism toxin to lower esophageal sphincter Significant Diagnostic Studies: CT chest: 1. Thickening of the mid to distal e sophageal wall with debris in the mid esophagus could be sequela of small hiatal hernia. Please correlate with findings on recent EGD. 2. Scattered multifocal centrilobular ground glass and nodular opacities, more c onfluent in the middle and right lower lobes concerning for infectious/inflammat ory process. 3. Diffuse interlobular septal thickening likely superimposed interstitial edema . 4. Small bilateral pleural effusions. Cardiomegaly. 5. Mediastinal lymphadenopathy likely reactive. Pending Diagnostic Studies: None Consults: 1. GI: Dr. Christy 2. Cardiology: Dr. Delgado Reason for Hospital Admission: Ms. Pau Mccabe is a 69 y.o. female who prese nted with nausea and vomiting. Hospital Course by Problem: 69 y.o. female with h/o Afib on Tikosyn and coumadin , JJ (not on CPAP), HTN, depression and eosinophilic esophagitis who was admitt ed on 02/07/2019 with worsening dysphagia. She had an EGD last month with Dr. Chelita herron and was diagnosed with eosinophilic esophagitis and is being treated with viscous budesonide. She continued to have dysphagia and last Saturday had a twila um swallow which revealed severe esophageal stricture. Her PCP was unable to re ach the [facility] GI clinic so she saw a different GI doctor and on Saturday had a re peat EGD with esophageal dilatation. She reported that that doctor told her she was having esophageal spasms and pres cribed diltiazem. She took that only 1 day and stopped due to dizziness. She t hen presented when her swallowing became much worse and she could not take in fo od and only a little water so she was transferred to [facility]. During EGD Attempt 02/09/2019, she appeared to aspirate secondary to retained flu id and food in her esophagus. Repeat EGD done 02/10/19 did not find evidence of retained food or stricture. GI suspects achalasia and recommends outpatient man ometry at [facility] as outpatient. She will be started on clear liquid diet and initially tolerated but then could not keep down even pills. GI did a third endoscopy and injected botulism toxin to the lower esophageal sphincter. The following day, she was able to tolerate a full liquid diet. She will very slowly advance her diet to solid. She will a void bread, chicken, and steak. The plan is still to get an outpatient manometry. If this is nondiagnostic seco ndary to recent botulism use, she will have it repeated if her symptoms come leonardo k. Discharge home today. Discharge Exam: Vital Signs: height is 1.651 m (5' 5") and weight is 90.4 kg (199 lb 4.8 oz). H er oral temperature is 36.7 C (98 F). Her blood pressure is 98/78 and her pu lse is 100. Her respiration is 16 and oxygen saturation is 92%. Physical Exam: Alert and oriented x person, place, year Cardiovascular: Regular rate, regular rhythm, no murmur, no S3 Lungs: no wheezes, no crackles, no rhonchi Abdomen: Soft, non tender, Bowel sounds normal active Extremities: No lower extremity edema, radial pulses 2+ bilateral, posterior tib ial pulses 2+ bilateral Discharge Instructions: Disposition: Home or Self Care Condition at Discharge: fair Discharge code status: Full Code Diet: Simply Healthy with avoidance of bread, chicken and steak Activity: activity as tolerated and ambulate in house Follow-Up Care: Follow up with Yulissa Zapata MD in 1 week. GI in 1-2 months Labs / Imaging recommendations: manometry Discharge Medications New Medications Indication(s) amoxicillin-clavulanate 875-125 mg per tablet Commonly known as: Augmentin 1 tablet, Oral, 2 times daily Start taking on: February 14, 2019 Indication: ASPIRATION PNEUMONIA Modified Medications Indication(s) esomeprazole 40 MG capsule Commonly known as: NexIUM 40 mg, Oral, 2 times daily What changed: when to take this Indication: gastroesophageal reflux disease, eosinophilic esophagitis Medications To Continue Indication(s) BIOTIN ORAL 10,000 mcg, Oral, Daily Indication: vitamin supplement BUDESONIDE ORAL 2 mg, Oral, Daily Indication: an infection carvedilol 25 MG tablet Commonly known as: COREG 25 mg, Oral, 2 times daily Indication: chronic heart failure dofetilide 125 MCG capsule Commonly known as: TIKOSYN 125 mcg, Oral, Every 12 hours Indication: atrial fibrillation electrically shocked to normal rhythm, Paroxys mal Supraventricular Tachycardia furosemide 40 MG tablet Commonly known as: LASIX 40 mg, Oral, Daily Indication: visible water retention PARoxetine 10 MG tablet Commonly known as: PAXIL 10 mg, Oral, Daily Indication: Anxiousness associated with Depression potassium chloride 10 MEQ CR tablet Commonly known as: KLOR-CON 10 mEq, Oral, Daily Indication: prevention of low potassium in the blood * warfarin 2.5 MG tablet Commonly known as: COUMADIN 2.5 mg, Oral, Every evening * warfarin 1 MG tablet Commonly known as: COUMADIN 1 mg, Oral, As directed, Take once daily as directed by INR * There are duplicate medications prescribed to the patient Discharge Labs: Most Recent Result within the last 7 days Lab Units 02/10/19 0959 CREATININE mg/dL 0.8 Most Recent Result within the last 7 days Lab Units 02/12/19 0125 HEMOGLOBIN g/dL 10.7* Most Recent Result within the last 7 days Lab Units 02/12/19 0125 INR 1.5* Time: Spent 36 minutes on chart review, orders, and completing the discharge sum rick. Electronically signed by: Marcus Bush 02/13/2019 11:21 AM SKILLS TRAINER documented in this encounter Discharge Instructions * Appointments* Sharon Baxter RN - 02/11/2019 9:38 AM LIFE SKILLS TRAINER If you need to reschedule your Cardiology appointment, please call our [facility] department at [phone]. Thank you! SKILLS TRAINER * Attachments The following attachments cannot be sent through Care Everywhere.* Piperacillin; Tazobactam injection (Turkish) documented in this encounter Medications at Time [...] (2.5 mg total) by mouth every evening. 02/14/2019 02/16/2019 amoxicillin-clavulanate Take 1 tablet 4 tablet 0 (AUGMENTIN) 875-125 mg by mouth 2 per tabletIndications: (two) times a ASPIRATION PNEUMONIA day. 11/23/2018 07/09/2019 dofetilide (TIKOSYN) 125 Take 1 [...] hypokalemia prevention documented as of this encounter Progress Notes * Waldo Chavarria MD - 02/13/2019 9:01 AM LIFE SKILLS TRAINER GI Progress Note NAME: Pau Mccabe ADMISSION DATE: 02/07/2019 GI service was asked to see Pau Mccabe by Marcus Bush DO for anemia. SUBJECTIVE Patient patient underwent EGD with Botox injection above the GE junction yesterd ay for symptomatic relief for suspected achalasia. She reports some symptoms of dysphagia last night, however she is able to tolerate clear liquid diet this mo rning. She also went into A. fib with RVR yesterday but remains stable. A full review of systems was performed and was negative except as above. Past medical, social, and family histories were reviewed and are unchanged. VITALS Patient Vitals for the past 24 hrs: BP Temp Temp src Pulse Resp SpO2 Weight 02/13/19 0805 98/78 36.7 C (98 F) Oral 100 16 92 % 02/13/19 0411 132/88 36.8 C (98.2 F) Oral (!) 103 18 90 % 90.4 kg (199 lb 4. 8 oz) 02/12/19 2319 115/87 36.6 C (97.8 F) Oral (!) 111 18 90 % 02/12/19 2117 (!) 110 02/12/19 1947 101/55 36.7 C (98 F) Oral (!) 124 18 90 % 02/12/19 1700 120/88 (!) 114 16 95 % 02/12/19 1626 (!) 118/92 36.8 C (98.2 F) Oral (!) 112 22 93 % 02/12/19 1545 (!) 135/94 (!) 126 22 92 % 02/12/19 1530 (!) 135/96 (!) 123 27 94 % 02/12/19 1520 (!) 132/92 36.4 C (97.5 F) Temporal (!) 123 22 93 % 02/12/19 1424 (!) 180/76 37 C (98.6 F) Oral (!) 54 14 93 % 02/12/19 1207 (!) 167/71 36.7 C (98.1 F) Oral (!) 58 18 92 % Intake/Output Summary (Last 24 hours) at 02/13/2019901 Last data filed at 02/12/2019 2030 Gross per 24 hour Intake 600 ml Output Net 600 ml Diet Ordered: Diet-Clear Liquid Code Status: Full Code EXAM General: No apparent distress HENT: Normocephalic Atraumatic. Eyes: Normal sclera, nonicteric. Neck: Supple. No JVD. CV: Regular rate and rhythm. No murmurs appreciated on auscultation. Lungs: Clear to auscultation. Unlabored respirations. Abdomen: Positive bowel sounds. Soft. Not tender to palpation. Skin: Warm and dry. No abnormalities to palpation. Neuro: Alert and oriented x 3. Psych: Mood is good, affect is normal. MEDICATIONS budesonide 3 mg Oral Daily carvedilol 25 mg Oral BID cefTRIAXone 2 g Intravenous Daily dofetilide 125 mcg Oral Q12H esomeprazole 40 mg Oral BID AC metroNIDAZOLE 500 mg Intravenous Daily And metroNIDAZOLE 500 mg Intravenous Daily PARoxetine 10 mg Oral Daily LABS Most Recent Result within the last 7 days Lab Units 02/12/19 0125 02/10/19 0245 02/08/19 0100 WBC TH/uL 6.08 10.93 6.60 HEMOGLOBIN g/dL 10.7* 10.4* 11.7* HEMATOCRIT % 31* 32* 34* PLATELET COUNT TH/uL 225 174 162 Most Recent Result within the last 7 days Lab Units 02/10/19 0959 02/08/19 0100 SODIUM MEQ/L 138 141 POTASSIUM MEQ/L 3.6 3.8 CHLORIDE MEQ/L 106 110 CARBON DIOXIDE MEQ/L 22 24 BLOOD UREA NITROGEN mg/dL 17 22 CREATININE mg/dL 0.8 0.9 CALCIUM mg/dL 8.2* 8.9 ALBUMIN g/dL 3.1* 3.5 PROTEIN TOTAL SERUM g/dL -- 6.4 ALKALINE PHOSPHATASE IU/L -- 53 ALANINE AMINOTRANSFERASE IU/L -- 18 ASPARTATE AMINOTRANSFERASE IU/L -- 25 GLUCOSE mg/dL 73 93 Most Recent Result within the last 7 days Lab Units 02/08/19 0100 BILIRUBIN TOTAL mg/dL 0.8 No results found for: LIPASE Most Recent Result within the last 7 days Lab Units 02/12/19 0125 02/10/19 0959 02/08/19 1214 INR 1.5* 1.6* 1.7* No results found for this or any previous visit. No results found for this or a ar previous visit. No results found for this or any previous visit. IMAGING Ct Chest W Contrast Result Date: 02/10/2019 1. Thickening of the mid to distal esophageal wall with debris in the mid esophagus could be sequela of small hiatal hernia. Please correlate with findings on recent EGD. 2. Scattered multifocal centrilobular ground glass and nodular opacities, more confluent in the middle and right lower lobes concerning for infectious/inflammatory process. 3. Diffuse interlobular septal thickening likely superimposed interstitial edema. 4. Small bilateral pleural effusions. Cardiomegaly. 5. Mediastinal lymphadenopathy likely reactive. ATTESTATION STATEMENT: The staff radiologist has personally reviewed the images and dictated, reviewed or edited the final report. READING SITE: [facility] Xr Chest Single View Frontal Result Date: 02/09/2019 1. Findings are suggestive of bronchitis with right basilar pneumonia/aspiration. READING SITE: [facility] ENDOSCOPY EGD 02/10/19 Corrugated mucosa and linear furrows in the whole esophagus compatible with esophagitis. Abnormal Motility. Normal mucosa in the whole stomach. Other than the findings described,retroflex examination did not demonstrate significant structural abnormalities and there was no edema, erythema, friability, erosions, ulcerations, ulcers, masses, tumors, arteriovenous malformations, or gastric varices. . Normal mucosa in the whole examined duodenum. Other than the findings described, there was no duodenitis, bulboduodenitis, masses, or scarring. . EGD 02/09/19 . Patient became hypoxic and coughing after anesthesia induction which resolved after placement of oxygen mask. Immediately after bypassing the upper esophageal sphincter large amounts of liquids and solid material was seen and hence the procedure was aborted. EGD 02/12/19 Normal stomach. No edema, erythema, friability, erosions, ulcerations, ulcers, masses, tumors, arteriovenous malformations, or gastric varices. Retroflexed examination of the proximal stomach did not demonstrate significant structural abnormalities. Normal duodenum. No duodenitis, bulboduodenitis, masses, scarring, erosions, or ulcers and the duodenal folds had a normal appearance. Abnormal Motility suggested by increased GE junction contractility s/p 1 cc botox injections in all four quadrants (total 4 cc). IMPRESSION Pau Mccabe is a 69 y.o. female hospital day 6, with Pau Mccabe is a 69 y.o. female PMH/o paroxysmal atrial fibrillation on warf nancy, obstructive sleep apnea who presents for solid and liquid food dysphagia. She underwent an EGD on January 01, 2019 which showed a small hiatal hernia and did reveal eosinophilic esophagitis after which she was started on budesonide wi th no improvement. She reports she underwent an EGD this past week on Saturday and had dilation at an outside hospital and [place], [place]. Endoscopy report reviewed and jair ent had empiric balloon dilation to 16.5 mm for suspected achalasia at the [facility]. She was also started on Cardizem that she did not tolerate due to hypo tension. EGD done on 02/10 showed no signs of strictures, poor peristalsis may be suggesti ve of achalasia. Due to persistent symptoms, EGD was repeated on 02/12 and Botox injection was don e above the GE junction. [facility] was contacted and patient to be scheduled for esophageal manome try. #Eosinophilic esophagitis #Weight Loss #Paroxysmal atrial fibrillation: On warfarin, currently held Recommendations: -Continue full liquid diet and monitor for recurrence of symptoms -If patient tolerates lunch today, okay for discharge from GI standpoint -Continue PPI twice daily for EOE -May resume warfarin on discharge if patient tolerates diet of no further dilati on is needed -If patient does not tolerate diet, may consider additional empiric dilation GI will sign off, please call for questions or concerns Discussed with staff Please call/page with any questions. Waldo Chavarria MD Gastroenterology Fellow N [place] Associated attestation - Chau Christy MD - 02/13/2019 4:44 PM SHAWN Givens I have seen and evaluated the patient. I reviewed above note and discussed plan of care with the resident/fellow. Following botulinum toxin injection yesterday , patient was able to tolerate a full liquid diet. She is eager to be discharge d. She will be followed in the outpatient setting by her nurse practitioner Nikhil Samano. He will arrange for her to undergo an esophageal motility zeynep dy to evaluate for achalasia. If the recent botulinum toxin injection in the th e lower esophageal sphincter results in confounding manometry results, eventuall y once botulinum toxin wears off and she experiences recurrent symptoms, she janiya l likely require repeat esophageal manometry. If achalasia is confirmed on mano metry, patient may benefit from referral to Dr. Gallegos still be at the [facility] to discuss poor oral endoscopic myotomy. * Marcus Bush, DO - 02/12/2019 12:02 PM LIFE SKILLS TRAINER [facility] INTERACTIVE DEVELOPER Hospitalist Progress Note Patient Name: Pau Mccabe Age: 69 y.o. Sex: female Admit Date: 02/07/2019 Length of Stay: 5 Days Chief Complaint: dysphagia, pneumonia Summary Statement: 69 y.o. female with h/o Afib on Tikosyn and coumadin, JJ (no t on CPAP), HTN, depression and eosinophilic esophagitis who was admitted on with worsening dysphagia. She had an EGD last month with Dr. Sherrie lauren d was diagnosed with eosinophilic esophagitis and is being treated with viscous budesonide. She continued to have dysphagia and last Saturday had a barium swallo w which revealed severe esophageal stricture. Her PCP was unable to reach the [facility] GI clinic so she saw a different GI doctor and on Saturday had a repeat EGD with esophageal dilatation. She reported that that doctor told her she was having esophageal spasms and pres cribed diltiazem. She took that only 1 day and stopped due to dizziness. She t hen presented when her swallowing became much worse and she could not take in fo od and only a little water so she was transferred to [facility]. During EGD Attempt 02/09/2019, she appeared to aspirate secondary to retained flu id and food in her esophagus. Repeat EGD done 02/10/19 did not find evidence of retained food or stricture. GI suspects achalasia and recommends outpatient man ometry at [facility] as outpatient. She will be started on clear liquid diet and initially tolerated but then could not keep down even pills. She continues to bring up frothy substance. Assessment/Plan: * Esophageal dysphagia Concern for esophageal stricture s/p dilatation at outside hospital: -history of eosinophilic esophagitis -failed EGD attempt with possible aspiration 02/09 -repeat EGD 02/10/19 without stricture, clinical concern for achalasia -failed trial of clear liquid diet -plan Botox today as did not tolerate PO Aspiration pneumonia (HCC) Secondary to retained esophogeal food: -completed 3/4 days of zosyn, now has diarrhea -change to rocephin / flagyl to see if less affect on gut -repeat procalcitonin trending down Paroxysmal atrial fibrillation (HCC) Currently in sinus rhythm: -continue dofetilide as PO allows -continue to hold warfarin as needs repeat EGD today Essential hypertension Continue coreg Depression Continue Paxil DVT Prophylaxis: holding warfarin Code Status: Full Code Disposition: keep inpatient as not tolerating PO Subjective: No fevers or chills, minimal cough, family at bedside, no headache, tolerated so me clear liquid diet yesterday, did not tolerate pills later, bringing up frothy material, mild pleuritic discomfort with deep breaths Objective: Physical Exam: height is 1.651 m (5' 5") and weight is 91.3 kg (201 lb 4.8 oz). Her oral tempe rature is 37.1 C (98.7 F). Her blood pressure is 158/76 (abnormal) and her p ulse is 59. Her respiration is 18 and oxygen saturation is 94%. Alert and oriented x person, place, year Cardiovascular: Regular rate, regular rhythm, no murmur, no S3 Lungs: no wheezes, occasional basilar crackles, no rhonchi Abdomen: Soft, non tender, bowel sounds normal active Extremities: No lower extremity edema, radial pulses 2+ bilateral, posterior tib ial pulses 2+ bilateral Asencio Catheter: No Laboratory Data: Most Recent Result within the last 7 days Lab Units 02/10/19 0959 SODIUM MEQ/L 138 POTASSIUM MEQ/L 3.6 CHLORIDE MEQ/L 106 CARBON DIOXIDE MEQ/L 22 BLOOD UREA NITROGEN mg/dL 17 CREATININE mg/dL 0.8 GLUCOSE mg/dL 73 CALCIUM mg/dL 8.2* Most Recent Result within the last 7 days Lab Units 02/12/19 0125 WBC TH/uL 6.08 HEMOGLOBIN g/dL 10.7* HEMATOCRIT % 31* PLATELET COUNT TH/uL 225 Scheduled medications: budesonide 3 mg Oral Daily carvedilol 25 mg Oral BID cefTRIAXone 2 g Intravenous Daily dofetilide 125 mcg Oral Q12H esomeprazole 40 mg Oral BID AC metroNIDAZOLE 500 mg Intravenous Daily And metroNIDAZOLE 500 mg Intravenous Daily PARoxetine 10 mg Oral Daily Intake/Output Summary (Last 24 hours) at 02/12/2019 1202 Last data filed at 02/11/2019 2129 Gross per 24 hour Intake 580 ml Output Net 580 ml Body mass index is 33.5 kg/m. Marcus Bush DO [facility] Hospitalist Program Please page through [employer] using template format. Electronically signed by Marcus Bush 02/12/2019 12:02 PM SKILLS TRAINER * Marcus Bush DO - 02/11/2019 1:33 PM LIFE SKILLS TRAINER [facility] INTERACTIVE DEVELOPER Hospitalist Progress Note Patient Name: Pau Mccabe Age: 69 y.o. Sex: female Admit Date: 02/07/2019 Length of Stay: 4 Days Chief Complaint: dysphagia, aspiration pneumonia Summary Statement: 69 y.o. female with h/o Afib on Tikosyn and coumadin, JJ (no t on CPAP), HTN, depression and eosinophilic esophagitis who was admitted on with worsening dysphagia. She had an EGD last month with Dr. Sherrie lauren d was diagnosed with eosinophilic esophagitis and is being treated with viscous budesonide. She continued to have dysphagia and last Saturday had a barium swallo w which revealed severe esophageal stricture. Her PCP was unable to reach the [facility] GI clinic so she saw a different GI doctor and on Saturday had a repeat EGD with esophageal dilatation. She reported that that doctor told her she was having esophageal spasms and pres cribed diltiazem. She took that only 1 day and stopped due to dizziness. She t hen presented when her swallowing became much worse and she could not take in fo od and only a little water so she was transferred to [facility]. During EGD Attempt 02/09/2019, she appeared to aspirate secondary to retained flu id and food in her esophagus. Repeat EGD done 02/10/19 did not find evidence of retained food or stricture. GI suspects achalasia and recommends outpatient man ometry at [facility] as outpatient. She will be started on clear liquid diet and if tolerates, will discharge tomorr ow. Assessment/Plan: * Esophageal dysphagia Concern for esophageal stricture s/p dilatation at outside hospital: -history of eosinophilic esophagitis -failed EGD attempt with possible aspiration 02/09 -repeat EGD 02/10/19 without stricture, clinical concern for achalasia -spoke with Dr. Christy -trial of clear liquid diet -home tomorrow with outpatient manometry if tolerates clear liquid diet -consider Botox tomorrow if does not tolerate PO Aspiration pneumonia (HCC) Secondary to retained esophogeal food: -zosyn day 3 -suspect transition to PO tomorrow -repeat procalcitonin tomorrow Paroxysmal atrial fibrillation (HCC) Currently in sinus rhythm: -restarted dofetilide -appreciate cardiology recommendations for periprocedural dofetilide -continue to hold warfarin until decision on repeat procedures Essential hypertension Restarted coreg Depression Continue Paxil DVT Prophylaxis: SCD Code Status: Full Code Disposition: keep inpatient at bedside, spoke with daughter by phone in room Subjective: No chest pain, tolerating clear liquid diet, no shortness of breath, no current cough, no nausea and vomiting, no fevers or chills Objective: Physical Exam: height is 1.651 m (5' 5") and weight is 90.6 kg (199 lb 11.2 oz). Her oral temp erature is 36.8 C (98.2 F). Her blood pressure is 137/70 and her pulse is 56 (abnormal). Her respiration is 20 and oxygen saturation is 93%. Alert and oriented x person, place, year Cardiovascular: murray rate, regular rhythm, no murmur, no S3 Lungs: no wheezes, rare basilar crackles, no rhonchi Abdomen: Soft, non tender, bowel sounds normal active Extremities: No lower extremity edema, radial pulses 2+ bilateral, posterior tib ial pulses 2+ bilateral Asencio Catheter: No Laboratory Data: Most Recent Result within the last 7 days Lab Units 02/10/19 0959 SODIUM MEQ/L 138 POTASSIUM MEQ/L 3.6 CHLORIDE MEQ/L 106 CARBON DIOXIDE MEQ/L 22 BLOOD UREA NITROGEN mg/dL 17 CREATININE mg/dL 0.8 GLUCOSE mg/dL 73 CALCIUM mg/dL 8.2* Most Recent Result within the last 7 days Lab Units 02/10/19 0245 WBC TH/uL 10.93 HEMOGLOBIN g/dL 10.4* HEMATOCRIT % 32* PLATELET COUNT TH/uL 174 Scheduled medications: budesonide 3 mg Oral Daily carvedilol 25 mg Oral BID dofetilide 125 mcg Oral Q12H esomeprazole 40 mg Oral Daily PARoxetine 10 mg Oral Daily piperacillin-tazobactam 3.375 g Intravenous Q6H AMARILYS Intake/Output Summary (Last 24 hours) at 02/11/2019 1333 Last data filed at 02/11/2019 0525 Gross per 24 hour Intake 3128.42 ml Output 800 ml Net 2328.42 ml Body mass index is 33.23 kg/m. Marcus Bush DO [facility] Please page through Voalte Messaging using template format. Electronically signed by Marcus Bush 02/11/2019 1:33 PM SKILLS TRAINER * Waldo Chavarria MD - 02/11/2019 1:16 PM LIFE SKILLS TRAINER GI Progress Note NAME: Pau Mccabe ADMISSION DATE: 02/07/2019 GI service was asked to see Pau Mccabe by Marcus Bush DO for anemia. SUBJECTIVE Patient had EGD yesterday with no impacted food in the esophagus. EGD however w as notable for poor peristalsis. This may be suggestive of achalasia. Patient was started on a clear liquid diet yesterday which he tolerated, however this morning she reports recurrent dysphagia, and has vomited full liquid diet. A full review of systems was performed and was negative except as above. Past medical, social, and family histories were reviewed and are unchanged. VITALS Patient Vitals for the past 24 hrs: BP Temp Temp src Pulse Resp SpO2 02/11/19 0810 137/70 36.8 C (98.2 F) Oral (!) 56 20 93 % 02/11/19 0415 125/79 37.2 C (98.9 F) Oral 60 20 94 % 02/10/19 2300 139/73 37.2 C (98.9 F) Oral 60 20 96 % 02/10/192008 127/67 36.8 C (98.3 F) Oral (!) 57 22 95 % 02/10/19 1700 (!) 155/89 65 18 (!) 89 % 02/10/19 1645 (!) 152/72 60 29 94 % 02/10/19 1630 (!) 152/89 (!) 58 22 95 % 02/10/19 1615 (!) 149/83 66 29 98 % 02/10/19 1609 128/74 36.4 C (97.6 F) 74 26 93 % 02/10/19 1339 (!) 178/90 62 18 96 % Intake/Output Summary (Last 24 hours) at 02/11/2019 1319 Last data filed at 02/11/2019 0525 Gross per 24 hour Intake 3128.42 ml Output 800 ml Net 2328.42 ml Diet Ordered: Diet-Clear Liquid Code Status: Full Code EXAM General: No apparent distress HENT: Normocephalic Atraumatic. Eyes: Normal sclera, nonicteric. Neck: Supple. No JVD. CV: Regular rate and rhythm. No murmurs appreciated on auscultation. Lungs: Clear to auscultation. Unlabored respirations. Abdomen: Positive bowel sounds. Soft. Not tender to palpation. Skin: Warm and dry. No abnormalities to palpation. Neuro: Alert and oriented x 3. Psych: Mood is good, affect is normal. MEDICATIONS budesonide 3 mg Oral Daily carvedilol 25 mg Oral BID dofetilide 125 mcg Oral Q12H esomeprazole 40 mg Oral Daily PARoxetine 10 mg Oral Daily piperacillin-tazobactam 3.375 g Intravenous Q6H AMARILYS sodium chloride 0.9 % 75 mL/hr (02/11/19 1102) LABS Most Recent Result within the last 7 days Lab Units 02/10/19 0245 02/08/19 0100 WBC TH/uL 10.93 6.60 HEMOGLOBIN g/dL 10.4* 11.7* HEMATOCRIT % 32* 34* PLATELET COUNT TH/uL 174 162 Most Recent Result within the last 7 days Lab Units 02/10/19 0959 02/08/19 0100 SODIUM MEQ/L 138 141 POTASSIUM MEQ/L 3.6 3.8 CHLORIDE MEQ/L 106 110 CARBON DIOXIDE MEQ/L 22 24 BLOOD UREA NITROGEN mg/dL 17 22 CREATININE mg/dL 0.8 0.9 CALCIUM mg/dL 8.2* 8.9 ALBUMIN g/dL 3.1* 3.5 PROTEIN TOTAL SERUM g/dL -- 6.4 ALKALINE PHOSPHATASE IU/L -- 53 ALANINE AMINOTRANSFERASE IU/L -- 18 ASPARTATE AMINOTRANSFERASE IU/L -- 25 GLUCOSE mg/dL 73 93 Most Recent Result within the last 7 days Lab Units 02/08/19 0100 BILIRUBIN TOTAL mg/dL 0.8 No results found for: LIPASE Most Recent Result within the last 7 days Lab Units 02/10/19 0959 02/08/19 1214 02/08/19 0100 INR 1.6* 1.7* 1.7* No results found for this or any previous visit. No results found for this or a ar previous visit. No results found for this or any previous visit. IMAGING Ct Chest W Contrast Result Date: 02/10/2019 1. Thickening of the mid to distal esophageal wall with debris in the mid esophagus could be sequela of small hiatal hernia. Please correlate with findings on recent EGD. 2. Scattered multifocal centrilobular ground glass and nodular opacities, more confluent in the middle and right lower lobes concerning for infectious/inflammatory process. 3. Diffuse interlobular septal thickening likely superimposed interstitial edema. 4. Small bilateral pleural effusions. Cardiomegaly. 5. Mediastinal lymphadenopathy likely reactive. ATTESTATION STATEMENT: The staff radiologist has personally reviewed the images and dictated, reviewed or edited the final report. READING SITE: [facility] Single View Frontal Result Date: 02/09/2019 1. Findings are suggestive of bronchitis with right basilar pneumonia/aspiration. READING SITE: [facility] ENDOSCOPY EGD 02/10/19 Corrugated mucosa and linear furrows in the whole esophagus compatible with esophagitis. Abnormal Motility. Normal mucosa in the whole stomach. Other than the findings described,retroflex examination did not demonstrate significant structural abnormalities and there was no edema, erythema, friability, erosions, ulcerations, ulcers, masses, tumors, arteriovenous malformations, or gastric varices. . Normal mucosa in the whole examined duodenum. Other than the findings described, there was no duodenitis, bulboduodenitis, masses, or scarring. . EGD 02/09/19 . Patient became hypoxic and coughing after anesthesia induction which resolved after placement of oxygen mask. Immediately after bypassing the upper esophageal sphincter large amounts of liquids and solid material was seen and hence the procedure was aborted. IMPRESSION Pau Mccabe is a 69 y.o. female hospital day 4, with Pau Mccabe is a 69 y.o. female PMH/o paroxysmal atrial fibrillation on nancy, obstructive sleep apnea who presents for solid and liquid food dysphagia. She underwent an EGD on January 01, 2019 which showed a small hiatal hernia and did reveal eosinophilic esophagitis after which she was started on budesonide wi th no improvement. She reports she underwent an EGD this past week on Saturday and had dilation at an outside hospital and [place], [place]. There was also reportedly esophage al spasms and she was started on diltiazem however stopped after a day due to di zziness. EGD done on 02/10 showed no signs of strictures, poor peristalsis may be suggesti ve of achalasia. #Esophageal Dysphagia: To both solids and liquids. Worsening despite treatment for eosinophilic esophagitis. #Eosinophilic esophagitis #Weight Loss #Paroxysmal atrial fibrillation: On warfarin, currently held Recommendations: -Would recommend scheduling manometry as outpatient for formal diagnosis of inge lasia -In the meantime, recommend full liquid diet -If patient cannot tolerate full liquid diet and continues to vomit, will consid er EGD tomorrow with empiric dilation for temporary relief versus Botox injectio n. -Keep n.p.o. after midnight -We will increase her PPI to twice daily -Keep holding warfarin if possible for potential dilation Discussed with staff Please call/page with any questions. Waldo Chavarria MD Gastroenterology Fellow [facility] [place] [employer] attestation - Chau Christy MD - 02/11/2019 1:50 PM CS Chon I have seen and evaluated the patient. I reviewed above note and discussed plan of care with the resident/fellow. Endoscopic picture is concerning for motility problem, possibly achalasia. Will encourage patient to attempt clear liquids po ssibly advance to full liquid diet. Ideally she would be able to be discharged on a full liquid diet and undergo esophageal motility study at [facility] as an outpatient. If this is not feasible, repeat upper endoscopy with botulinu m toxin injection to lower esophageal sphincter region will be performed tomorro w in an effort to allow hospital discharge. * Kristina Conrad NP - 02/10/2019 4:07 PM LIFE SKILLS TRAINER Attempt to see patient today x2 this afternoon. Out of room for EGD. Will plan t o see patient in AM. SKILLS TRAINER * Marcus Bush DO - 02/10/2019 3:22 PM LIFE SKILLS TRAINER [facility] INTERACTIVE DEVELOPER Hospitalist Progress Note Patient Name: Pau Mccabe Age: 69 y.o. Sex: female Admit Date: 02/07/2019 Length of Stay: 3 Days Chief Complaint: dysphagia, aspiration Summary Statement: 69 y.o. female with h/o Afib on Tikosyn and coumadin, JJ (no t on CPAP), HTN, depression and eosinophilic esophagitis who was admitted on with worsening dysphagia. She had an EGD last month with Dr. Sherrie lauren d was diagnosed with eosinophilic esophagitis and is being treated with viscous budesonide. She continued to have dysphagia and last Saturday had a barium swallo w which revealed severe esophageal stricture. Her PCP was unable to reach the [facility] GI clinic so she saw a different GI doctor and on Saturday had a repeat EGD with esophageal dilatation. She reported that that doctor told her she was having esophageal spasms and pres cribed diltiazem. She took that only 1 day and stopped due to dizziness. She t hen presented when her swallowing became much worse and she could not take in fo od and only a little water so she was transferred to [facility]. During EGD Attempt 02/09/2019, she appeared to aspirate secondary to retained flu id and food in her esophagus. Will be reattempted today. She was started on zosyn. Assessment/Plan: * Esophageal dysphagia Concern for esophageal stricture s/p dilatation: H/O eosinophilic esophagitis -failed EGD attempt with possible aspiration 02/09 -chest xray consistent with aspiration -she will have repeat attempt today with anesthesia -spoke with Dr. Balderas -keep strict NPO Esophageal stricture EGD attempt noted -possible aspiration -chest xray with findings consistent with aspiration -continue zosyn day 2 Paroxysmal atrial fibrillation (HCC) Currently in sinus rhythm: -will need to hold dofetilide with NPO status -appreciate cardiology recommendations for periprocedural dofetilide -continue to hold warfarin as repeat EGD Essential hypertension Hold PO medications as unable to take Depression Continue Paxil -unfortunately Son was found about 2 weeks ago DVT Prophylaxis: holding warfarin with procedure Code Status: Full Code Disposition: keep inpatient Subjective: Feels better, though has slight discomfort upper chest, min shortness of breath, daughter at bedside, no fevers or chills Objective: Physical Exam: height is 1.651 m (5' 5") and weight is 90.6 kg (199 lb 11.2 oz). Her oral temp erature is 36.6 C (97.8 F). Her blood pressure is 178/90 (abnormal, pended) and her pulse is 62 (pended). Her respiration is 18 (pended) and oxygen saturati on is 96% (pended). Alert and oriented x person, place, year Cardiovascular: Regular rate, regular rhythm, no murmur, no S3 Lungs: no wheezes, rare crackles, no rhonchi Abdomen: Soft, non tender, bowel sounds normal active Extremities: No lower extremity edema, radial pulses 2+ bilateral, posterior tib ial pulses 2+ bilateral Asencio Catheter: No Laboratory Data: Most Recent Result within the last 7 days Lab Units 02/10/19 0959 SODIUM MEQ/L 138 POTASSIUM MEQ/L 3.6 CHLORIDE MEQ/L 106 CARBON DIOXIDE MEQ/L 22 BLOOD UREA NITROGEN mg/dL 17 CREATININE mg/dL 0.8 GLUCOSE mg/dL 73 CALCIUM mg/dL 8.2* Most Recent Result within the last 7 days Lab Units 02/10/19 0245 WBC TH/uL 10.93 HEMOGLOBIN g/dL 10.4* HEMATOCRIT % 32* PLATELET COUNT TH/uL 174 Scheduled medications: budesonide 3 mg Oral Daily dofetilide 125 mcg Oral Q12H esomeprazole 40 mg Oral Daily metoprolol 5 mg Intravenous Q6H AMARILYS PARoxetine 10 mg Oral Daily piperacillin-tazobactam 3.375 g Intravenous Q6H AMARILYS Intake/Output Summary (Last 24 hours) at 02/10/2019 1522 Last data filed at 02/10/2019 0808 Gross per 24 hour Intake 10 ml Output 900 ml Net -890 ml Body mass index is 33.23 kg/m. Marcus Bush DO [facility] Please page through [employer] Messaging using template format. Electronically signed by Marcus Bush 02/10/2019 3:22 PM SKILLS TRAINER Katheryn Ayers - 02/10/2019 10:50 AM LIFE SKILLS TRAINER Pau was sitting in bed visiting with her daughter Althea and [id number] Maryjane, the room was well lite when I walked in. Pau smiled and said she was hoping to be discharged. She wants to go home. Maryjane stated that she should no t abdi it the doctors will say when the time is right. We all prayed together a nd Pau seem a little less anxious when I left the room. Katheryn Aguilar, 02/10/2019 1:31 PM Pager Number: [phone] SKILLS TRAINER * Marcus Bush DO - 02/09/2019 12:58 PM LIFE SKILLS TRAINER [facility] INTERACTIVE DEVELOPER Hospitalist Progress Note Patient Name: Pau Mccabe Age: 69 y.o. Sex: female Admit Date: 02/07/2019 Length of Stay: 2 Days Chief Complaint: dysphagia, aspiration Summary Statement: 69 y.o. female with h/o Afib on Tikosyn and coumadin, JJ (no t on CPAP), HTN, depression and eosinophilic esophagitis who was admitted on with worsening dysphagia. She had an EGD last month with Dr. Sherrie chavez was diagnosed with eosinophilic esophagitis and is being treated with viscous budesonide. She continued to have dysphagia and last Saturday had a barium swallo w which revealed severe esophageal stricture. Her PCP was unable to reach the [facility] GI clinic so she saw a different GI doctor and on Saturday had a repeat EGD with esophageal dilatation. She reported that that doctor told her she was having esophageal spasms and pres cribed diltiazem. She took that only 1 day and stopped due to dizziness. She t hen presented when her swallowing became much worse and she could not take in fo od and only a little water so she was transferred to [facility]. Assessment/Plan: * Esophageal dysphagia Concern for esophageal stricture s/p dilatation: H/O eosinophilic esophagitis -failed EGD attempt with possible aspiration -chest xray consistent with aspiration -will need intubated prior to repeat EGD attempt -keep strict NPO Esophageal stricture EGD attempt noted -possible aspiration -chest xray with findings consistent with aspiration -start zosyn Paroxysmal atrial fibrillation (HCC) Currently in sinus rhythm: -will need to hold dofetilide with NPO status -consult cardiology for recommends of periprocedural dofetilide -INR remains 1.7 -continue to hold warfarin as repeat EGD likely needed Essential hypertension Hold PO medications as unable to take Depression Continue Paxil -unfortunately Son was found about 2 weeks ago DVT Prophylaxis: holding warfarin with possible need for repeat EGD Code Status: Full Code Disposition: keep inpatient with aspiration and need for EGD ( possible with int ubation ) Subjective: Possible aspiration with start of EGD, EGD revealed food / liquid in her esophog eal, had increased O2 requirement, but now able to return to room, mild discomfo rt with feeling of something being stuck Objective: Physical Exam: height is 1.651 m (5' 5") and weight is 90.6 kg (199 lb 11.2 oz). Her temporal temperature is 37.4 C (99.4 F). Her blood pressure is 147/77 (abnormal) and her pulse is 67. Her respiration is 17 and oxygen saturation is 96%. Alert and oriented x person, place, year Cardiovascular: Regular rate, regular rhythm, no murmur, no S3 Lungs: no wheezes, no crackles, no rhonchi Abdomen: Soft, non tender, bowel sounds normal active Extremities: No lower extremity edema, radial pulses 2+ bilateral, posterior tib ial pulses 2+ bilateral Asencio Catheter: No Laboratory Data: Most Recent Result within the last 7 days Lab Units 02/08/19 0100 SODIUM MEQ/L 141 POTASSIUM MEQ/L 3.8 CHLORIDE MEQ/L 110 CARBON DIOXIDE MEQ/L 24 BLOOD UREA NITROGEN mg/dL 22 CREATININE mg/dL 0.9 GLUCOSE mg/dL 93 CALCIUM mg/dL 8.9 Most Recent Result within the last 7 days Lab Units 02/08/19 0100 WBC TH/uL 6.60 HEMOGLOBIN g/dL 11.7* HEMATOCRIT % 34* PLATELET COUNT TH/uL 162 Scheduled medications: budesonide 3 mg Oral Daily carvedilol 25 mg Oral BID dofetilide 125 mcg Oral Q12H esomeprazole 40 mg Oral Daily PARoxetine 10 mg Oral Daily piperacillin-tazobactam 3.375 g Intravenous Q6H AMARILYS Intake/Output Summary (Last 24 hours) at 02/09/2019 1258 Last data filed at 02/09/2019 1203 Gross per 24 hour Intake 1926.03 ml Output 300 ml Net 1626.03 ml Body mass index is 33.23 kg/m. Marcus Bush DO [facility] Please page through Voalte Messaging using template format. Electronically signed by Marcus Bush 02/09/2019 12:58 PM SKILLS TRAINER * Jenae Suarez, PharmD - 02/09/2019 9:58 AM LIFE SKILLS TRAINER Pharmacist Warfarin Dosing Sign-Off Note Warfarin is no longer an active order. Pharmacy will sign-off on further dosing at this time. If warfarin therapy is to be resumed, an order for Pharmacy to Dos e Warfarin needs to be resubmitted to pharmacy services for further management. Jenae Suarez PharmD C Kwame Carbajal PharmD - 02/08/2019 11:41 AM LIFE SKILLS TRAINER Pharmacist Warfarin Dosing Progress Note Pau Mccabe is a 69 y.o. female receiving warfarin therapy for prior history atrial fibrillation . Patient was on warfarin prior to admission. Most Recent Home Warfarin Regimen: 2.5 mg every Mon, Wed, Fri; 1.5 mg all other days Hemoglobin Date Value Ref Range Status 02/08/2019 11.7 (L) 12.0 - 15.0 g/dL Final Platelet Count Date Value Ref Range Status 02/08/2019 162 140 - 400 TH/uL Final INR Date Value Ref Range Status 02/08/2019 1.7 (H) 0.8 - 1.2 Final Current weight is 90.4 kg (199 lb 4 oz) IBW(kg) (Calculated) : 57 Assessment: Patient's Therapy Goal: INR 2-3 Bleeding Risks: Age > 65 y Plan: Warfarin dose plan: Hold dose per CDTM Dose Comments: INR 1.7, hold for procedure Pharmacy will monitor daily INR and adjust therapy as needed per CDTM agreement. Kwame Curtis PharmD If a patient requires an invasive procedure that necessitates warfarin being hel d it is the responsibility of the physician to communicate this to the pharmacis t or discontinue the warfarin. The pharmacist to dose warfarin order will be dis continued per CDTM agreement and warfarin therapy will no longer be managed by kaylyn lagunas unless re-consulted. SKILLS TRAINER * Lennox Taylor MD - 02/08/2019 6:43 AM LIFE SKILLS TRAINER [facility] Hospitalist - Progress Note Patient Name: Pau Mccabe Account No: [id number] Date of : 1950 Date of Admission: 02/07/2019 11:25 PM Subjective She complained of shortness of breath this morning. Pulse oximetry showed 74% s aturation and she was placed on 2 L nasal cannula oxygen. On recheck her pulse ox was reading 96%. She feels SOA has improved on LFNC and with sitting up. She has been drinking poorly with only a few sips of water to take medications a nd feels she cannot swallow any food without it being stuck. She has no sensati on of food stuck in her chest at present. Denies chest pain or choking episode. She was kept NPO overnight and on IVF for GI evaluation. ROS A 4-point review of systems was completed and was negative except as noted above . Objective Vital Signs: Temp: 36.8 C (98.2 F) Pulse: 71 Resp: 17 BP: 110/66 SpO2: 96 % Height: 165.1 cm (5' 5") Weight: 90.4 kg (199 lb 4 oz) I/O last 24 Hours: In: 50 [P.O.:50] Out: 400 [Urine:400] Physical Exam General: Appears comfortable. Speech understandable and oriented. HEENT: NC/AT. Sclera anicteric. MMM. 2 L NC. CV: RRR. No murmurs. Lungs: No accessory muscle use. Normal rate. Crackles in bilateral bases. Sli ghtly diminished. Abd: Soft, ND/NT. Neurologic: Moves all extremities. Extremities: 2+ pulses I have personally reviewed the patient's vital signs, laboratory/pathology/cultu re results (as indicated), current inpatient medications and customer support professional notes with pertainent findings noted within the assessment/plan. Assessment/Plan Ms. Pau Mccabe is a 69 y.o. female who was admitted on 02/07/2019 with esop hageal dysphagia likely due to stricture vs. spasm complicated by her eosinophil ic esophagitis. She is admitted for poor hydration due to her dysphagia. Problems addressed with today's visit include: * Esophageal dysphagia GI consulted with concern for esophageal stricture s/p dilatation H/O eosinophilic esophagitis NPO, IVF NS EGD on 02/09 Paroxysmal atrial fibrillation (HCC) Currently in sinus rhythm Continue dofetilide Holding warfarin for EGD on 02/09 (INR 1.7 on 02/08); recheck INR in the AM Monitor on telemetry Esophageal stricture Continue budesonide and esomeprazole home medications GI consulted JJ (obstructive sleep apnea) Not currently using CPAP Essential hypertension Continue home meds Hydralazine prn Depression Continue Paxil Son was found in about 2 weeks ago See my orders for additional details regarding this patients treatment plan. Room: [address] [place] [address] Diet: CLD, NPO at midnight for possible scope Code Status: Full Code VTE Prevention: Appropriate VTE orders and/or documentation has been completed for this patient. Asencio Catheter: N/A Scheduled Meds: budesonide 3 mg Oral Daily carvedilol 25 mg Oral BID dofetilide 125 mcg Oral Q12H esomeprazole 40 mg Oral Daily furosemide 40 mg Oral Daily PARoxetine 10 mg Oral Daily Continuous Infusions: sodium chloride 0.9 % 75 mL/hr (02/08/1953) PRN Meds: bisacodyl, docusate sodium, hydralazine, magnesium sulfate, polyethylene glycol, potassium chloride OR potassium bicarb-citric acid OR potassium chlorid e in water Dany Briceño MD [facility] Medicine Division Please page through physician paging. . I saw and examined the patient with Dr Dany Briceño MD. I agree with history , exam, assessment and plan as documented in resident's note. I have edited as a ppropriate to reflect my findings. EGD tomorrow and possibly discharge after that SKILLS TRAINER * Paul Scott, PharmD - 02/08/2019 3:19 AM LIFE SKILLS TRAINER Pharmacist Warfarin Dosing Progress Note Pau Mccabe is a 69 y.o. female receiving warfarin therapy for prior history atrial fibrillation . Patient was on warfarin prior to admission. Most Recent Home Warfarin Regimen: 2.5 mg every Mon, Wed, Fri; 1.5 mg all other days Hemoglobin Date Value Ref Range Status 02/08/2019 11.7 (L) 12.0 - 15.0 g/dL Final Platelet Count Date Value Ref Range Status 02/08/2019 162 140 - 400 TH/uL Final INR Date Value Ref Range Status 02/08/2019 1.7 (H) 0.8 - 1.2 Final Current weight is 90.4 kg (199 lb 4 oz) IBW(kg) (Calculated) : 57 Assessment: Patient's Therapy Goal: INR 2-3 Bleeding Risks: Age > 65 y Plan: Warfarin dose plan: Continue home dose Dose Comments: INR 1.7, will restart home regimen of warfarin 2.5mg MWF and 1.5m g TTSS. Patient did not take the 02/07 dose, will enter it as a one time order t his morning. Will follow up with INR tomorrow. Pharmacy will monitor daily INR and adjust therapy as needed per CDTM agreement. Paul Scott PharmD If a patient requires an invasive procedure that necessitates warfarin being hel d it is the responsibility of the physician to communicate this to the pharmacis t or discontinue the warfarin. The pharmacist to dose warfarin order will be dis continued per CDTM agreement and warfarin therapy will no longer be managed by kaylyn lagunas unless re-consulted. SKILLS TRAINER documented in this encounter H&P Notes * David Ma MD - 02/12/2019 1:09 PM LIFE SKILLS TRAINER PRE ENDOSCOPIC PROCEDURE HISTORY AND PHYSICAL Procedure: EGD with possible botox injection possible dilation Indication for Procedure: Dysphagia, abnormal esophageal motility Past surgical history: Past Surgical History: Procedure Laterality Date BUNIONECTOMY Left 04/2000 CARDIAC CATHETERIZATION 09/03/2018 No angiographic evidence of obstructive CAD. Abnormal LV systolic function con sistent with a nonischemic cardiomyopathy. CARDIOVERSION 11/24/2018 Atrial Fib: Successful DCCV to NSR with one shock of 200j. CHOLECYSTECTOMY COLONOSCOPY EGD, USING BIOPSY N/A 01/01/2019 Procedure: ESOPHAGOGASTRODUODENOSCOPY, USING BIOPSY; Surgeon: Randi Stewart; Location: [facility] GI; Service: Gastroenterology; Laterality: N/A; ESOPHAGOGASTRODUODENOSCOPY (EGD) N/A 02/09/2019 Procedure: ESOPHAGOGASTRODUODENOSCOPY (EGD); Surgeon: Brent Tao MD; Locati on: [facility]; Service: Gastroenterology; Laterality: N/A; ESOPHAGOGASTRODUODENOSCOPY (EGD) N/A 02/10/2019 Procedure: ESOPHAGOGASTRODUODENOSCOPY (EGD); Surgeon: Anthony Camilo MD; Location: [facility]; Service: Gastroenterology; Laterality: N/A; FOOT SURGERY Left 1999 bunionectomy HYSTERECTOMY 03/2003 REPAIR, ROTATOR CUFF Right 04/2009 UPPER GASTROINTESTINAL ENDOSCOPY 04/2017 Past medical history: Past Medical History: Diagnosis Date Atrial fibrillation with RVR (HCC) 09/2018 Noted on 24 Hour Holter Chronic combined systolic and diastolic CHF, NYHA class 3 (HCC) Depression Dilated cardiomyopathy (HCC) Dysphagia hard to take pills- "stuck" Essential hypertension GERD (gastroesophageal reflux 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 Authorizing Provider BUDESONIDE ORAL Take 2 mg by mouth daily. Yes Maxim Balderas MD BIOTIN ORAL Take 10,000 mcg by mouth daily. Historical Provider, carvedilol (COREG) 25 MG tablet Take 1 tablet (25 mg total) by mouth 2 (two) geoff es a day. 11/24/18 Kristina Conrad NP dofetilide (TIKOSYN) 125 MCG capsule Take 1 capsule (125 mcg total) by mouth amisha ry 12 (twelve) hours. 11/23/18 Owen Dickens MD esomeprazole (NEXIUM) 40 MG capsule Take 40 mg by mouth daily. Historical Pro MD ashley furosemide (LASIX) 40 MG tablet Take 40 mg by mouth daily. 09/04/18 Historical Provider, PARoxetine (PAXIL) 10 MG tablet Take 10 mg by mouth daily. Historical Gary sethi MD potassium chloride (KLOR-CON) 10 MEQ CR tablet Take 10 mEq by mouth daily. Historical Provider, warfarin (COUMADIN) 1 MG tablet Take 1 tablet (1 mg total) by mouth as directed. Take once daily as directed by INR 12/19/18 12/19/19 Satish Sánchez III, MD warfarin (COUMADIN) 2.5 MG tablet Take 1 tablet (2.5 mg total) by mouth every ev ening. 11/24/18 Kristina Conrad NP ASA Class: Per anesthesia Airway assessment: Per anesthesia Anesthesia/Sedation: Per anesthesia/Conscious sedation Preprocedure Examination: Blood pressure (!) 167/71, pulse (!) 58, temperature 36.7 C (98.1 F), temper ature source Oral, resp. rate 18, height 1.651 m (5' 5"), weight 91.3 kg (201 lb 4.8 oz), SpO2 92 %. HEENT: normocephalic atraumatic Chest: Normal chest wall and respirations. Clear to auscultation. Cardiac: Regular rate and rhythm, no murmurs Abdomen: soft, non-tender; bowel sounds normal; no masses, no organomegaly Neurologic: normal without focal findings, mental status, speech normal Other: Vitals stable. Attestations: - I have explained the procedure, principal risk(s), benefit(s), and alternative (s) to the patient/advocate, that individual had the opportunity to ask question s, and appeared to understand the procedure/risk(s)/benefit(s)/alternative(s). - I have reviewed the patient history including medications, allergies and relev ant diagnostic studies. - The sedation plan and principal risk(s)/complication(s) have been discussed wi th the patient/advocate. Electronically signed by David Ma 02/12/2019 1:10 PM Anthony Parks MD - 02/10/2019 3:09 PM LIFE SKILLS TRAINER PRE ENDOSCOPIC PROCEDURE HISTORY AND PHYSICAL Procedure: EGD with possible dilation Indication for Procedure: Dysphagia/Probable esophageal obstruction Past surgical history: Past Surgical History: Procedure Laterality Date BUNIONECTOMY Left 04/2000 CARDIAC CATHETERIZATION 09/03/2018 No angiographic evidence of obstructive CAD. Abnormal LV systolic function con sistent with a nonischemic cardiomyopathy. CARDIOVERSION 11/24/2018 Atrial Fib: Successful DCCV to NSR with one shock of 200j. CHOLECYSTECTOMY COLONOSCOPY EGD, USING BIOPSY N/A 01/01/2019 Procedure: ESOPHAGOGASTRODUODENOSCOPY, USING BIOPSY; Surgeon: Randi Stewart; Location: [facility]; Service: Gastroenterology; Laterality: N/A; ESOPHAGOGASTRODUODENOSCOPY (EGD) N/A 02/09/2019 Procedure: ESOPHAGOGASTRODUODENOSCOPY (EGD); Surgeon: Brent Tao MD; Locati on: [facility]; Service: Gastroenterology; Laterality: N/A; FOOT SURGERY Left 1999 bunionectomy HYSTERECTOMY 03/2003 REPAIR, ROTATOR CUFF Right 04/2009 UPPER GASTROINTESTINAL ENDOSCOPY 04/2017 Past medical history: Past Medical History: Diagnosis Date Atrial fibrillation with RVR (HCC) 09/2018 Noted on 24 Hour Holter Chronic combined systolic and diastolic CHF, NYHA class 3 (HCC) Depression Dilated cardiomyopathy (HCC) Dysphagia hard to take pills- "stuck" Essential hypertension GERD (gastroesophageal reflux disease) group home current use of antiarrhythmic drug group home current use of anticoagulant therapy Mitral regurgitation Mixed hyperlipidemia JJ (obstructive sleep apnea) Paroxysmal atrial fibrillation (HCC) Pneumonia 2018 Pulmonary hypertension (HCC) Shingles 1978 Tricuspid regurgitation Urinary tract infection Social history: Social History Tobacco Use Smoking status: Never Smoker Smokeless tobacco: Never Used Substance Use Topics Alcohol use: Yes Alcohol/week: 7.0 standard drinks Types: 7 Glasses of wine per week Allergies: Allergies Allergen Reactions Cardizem [Diltiazem Hcl] Dizziness Home medications: Prior to Admission medications Medication Sig Start Date End Date Taking? Authorizing Provider BUDESONIDE ORAL Take 2 mg by mouth daily. Yes Maxim Balderas MD BIOTIN ORAL Take 10,000 mcg by mouth daily. Historical Provider, carvedilol (COREG) 25 MG tablet Take 1 tablet (25 mg total) by mouth 2 (two) geoff es a day. 11/24/18 Kristina Conrad NP dofetilide (TIKOSYN) 125 MCG capsule Take 1 capsule (125 mcg total) by mouth amisha ry 12 (twelve) hours. 11/23/18 Owen Dickens MD esomeprazole (NEXIUM) 40 MG capsule Take 40 mg by mouth daily. Historical Pro MD ashley furosemide (LASIX) 40 MG tablet Take 40 mg by mouth daily. 6/27/19 Historical Provider, PARoxetine (PAXIL) 10 MG tablet Take 10 mg by mouth daily. Historical Provide MD jossie potassium chloride (KLOR-CON) 10 MEQ CR tablet Take 10 mEq by mouth daily. Historical Provider, warfarin (COUMADIN) 1 MG tablet Take 1 tablet (1 mg total) by mouth as directed. Take once daily as directed by INR 12/19/18 12/19/19 Satish Sánchez III, MD warfarin (COUMADIN) 2.5 MG tablet Take 1 tablet (2.5 mg total) by mouth every ev ening. 11/24/18 Kristina Conrad NP ASA Class: Per anesthesia Airway assessment: Per anesthesia Anesthesia/Sedation: Per anesthesia/Conscious sedation Preprocedure Examination: Blood pressure (!) (P) 178/90, pulse (P) 62, temperature 36.6 C (97.8 F), te mperature source Oral, resp. rate (P) 18, height 1.651 m (5' 5"), weight 90.6 kg (199 lb 11.2 oz), SpO2 (P) 96 %. HEENT: normal atraumatic, no neck masses, normal thyroid, no jvd Chest: Normal chest wall and respirations. Clear to auscultation. Cardiac: Regular rate and rhythm, no murmurs Abdomen: soft, non-tender; bowel sounds normal; no masses, no organomegaly Neurologic: normal without focal findings, mental status, speech normal, alert a nd oriented x3, GENNY and reflexes normal and symmetric Other: Vitals stable. Attestations: - I have explained the procedure, principal risk(s), benefit(s), and alternative (s) to the patient/advocate, that individual had the opportunity to ask question s, and appeared to understand the procedure/risk(s)/benefit(s)/alternative(s). - I have explained the principal risks including but not limited to Perforation, bleeding, aspiration, slowing of breathing or heart rate, and missed lesions/pa thology. - I have reviewed the patient history including medications, allergies and relev ant diagnostic studies. - The sedation plan and principal risk(s)/complication(s) have been discussed wi th the patient/advocate. Electronically signed by Anthony Camilo 02/10/2019 3:10 PM SKILLS TRAINER * Brent Tao MD - 02/09/2019 10:08 AM LIFE SKILLS TRAINER PRE ENDOSCOPIC PROCEDURE HISTORY AND PHYSICAL Procedure: EGD Indication for Procedure: Progressive dysphagia, h/o EOE on Budesonide slurry once a day + Nexium 40mg po qd. X 1 mo. w/o clinical improvement. Past surgical history: Past Surgical History: Procedure Laterality Date BUNIONECTOMY Left 04/2000 CARDIAC CATHETERIZATION 09/03/2018 No angiographic evidence of obstructive CAD. Abnormal LV systolic function con sistent with a nonischemic cardiomyopathy. CARDIOVERSION 11/24/2018 Atrial Fib: Successful DCCV to NSR with one shock of 200j. CHOLECYSTECTOMY COLONOSCOPY EGD, USING BIOPSY N/A 01/01/2019 Procedure: ESOPHAGOGASTRODUODENOSCOPY, USING BIOPSY; Surgeon: Randi Stewart; Location: [facility]; Service: Gastroenterology; Laterality: N/A; FOOT SURGERY Left 1999 bunionectomy HYSTERECTOMY 03/2003 REPAIR, ROTATOR CUFF Right 04/2009 UPPER GASTROINTESTINAL ENDOSCOPY 04/2017 Past medical history: Past Medical History: Diagnosis Date Atrial fibrillation with RVR (HCC) 09/2018 Noted on 24 Hour Holter Chronic combined systolic and diastolic CHF, NYHA class 3 (HCC) Depression Dilated cardiomyopathy (HCC) Dysphagia hard to take pills- "stuck" Essential hypertension GERD (gastroesophageal reflux 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 Authorizing Provider BUDESONIDE ORAL Take 2 mg by mouth daily. Yes Maxim Balderas MD BIOTIN ORAL Take 10,000 mcg by mouth daily. Historical Provider, carvedilol (COREG) 25 MG tablet Take 1 tablet (25 mg total) by mouth 2 (two) geoff es a day. 11/24/18 Kristina Conrad NP dofetilide (TIKOSYN) 125 MCG capsule Take 1 capsule (125 mcg total) by mouth amisha ry 12 (twelve) hours. 11/23/18 Owen Dickens MD esomeprazole (NEXIUM) 40 MG capsule Take 40 mg by mouth daily. Historical Pro viderMD furosemide (LASIX) 40 MG tablet Take 40 mg by mouth daily. 09/04/18 Historical Provider, PARoxetine (PAXIL) 10 MG tablet Take 10 mg by mouth daily. Historical Provide rMD potassium chloride (KLOR-CON) 10 MEQ CR tablet Take 10 mEq by mouth daily. Historical Provider, warfarin (COUMADIN) 1 MG tablet Take 1 tablet (1 mg total) by mouth as directed. Take once daily as directed by INR 12/19/18 12/19/19 Satish Sánchez III, MD warfarin (COUMADIN) 2.5 MG tablet Take 1 tablet (2.5 mg total) by mouth every ev ening. 11/24/18 Kristina Conrad NP ASA Class: ASA 3 - Patient with moderate systemic disease with functional limita tions Per anesthesia Airway assessment: Class 2 - Tonsillar pillars and uvula hidden by base of tongu e Per anesthesia Anesthesia/Sedation: Per anesthesia/Conscious sedation Preprocedure Examination: Blood pressure 137/86, pulse 72, temperature 37.1 C (98.7 F), temperature so urce Oral, resp. rate 20, height 1.651 m (5' 5"), weight 90.6 kg (199 lb 11.2 oz ), SpO2 90 %. HEENT: normal atraumatic, no neck masses, normal thyroid, no jvd Chest: Normal chest wall and respirations. Clear to auscultation. Cardiac: Regular rate and rhythm, no murmurs Abdomen: soft, non-tender; bowel sounds normal; no masses, no organomegaly Neurologic: normal without focal findings, mental status, speech normal, alert a nd oriented x3, GENNY and reflexes normal and symmetric Other: Vitals stable. Attestations: - I have explained the procedure, principal risk(s), benefit(s), and alternative (s) to the patient/advocate, that individual had the opportunity to ask question s, and appeared to understand the procedure/risk(s)/benefit(s)/alternative(s). - I have reviewed the patient history including medications, allergies and relev ant diagnostic studies. - The sedation plan and principal risk(s)/complication(s) have been discussed wi th the patient/advocate. Electronically signed by Brent Tao 02/09/2019 10:08 AM SKILLS TRAINER * Joseline Marrero MD - 02/07/2019 11:45 PM LIFE SKILLS TRAINER [facility] Patient Name: Pau Mccabe Account No: [id number] Date of : 1950 Date of Admission: 02/07/2019 11:25 PM Primary Care Physician: Yulissa Zapata MD; Subjective Chief Complaint: dysphagia History of Present illness: Ms. Pau Mccabe is a 69 y.o. female with h/o Diya b on Tikosyn and coumadin, JJ (not on CPAP), HTN, depression and eosinophilic e sophagitis who was admitted on 02/07/2019 with complaint of worsening dysphagia. She had an EGD last month with Dr. Balderas and was diagnosed with eosinophilic esophagitis and is being treated with viscous budesonide. She continued to have dysphagia and last Saturday had a barium swallow which revealed severe esophageal stricture. Her PCP was unable to reach the [facility] GI clinic so she saw a different GI doctor and on Saturday had a repeat EGD with esophageal dilatation. She reports that that doctor told her she was having esophageal spasms and prescribe d diltiazem. She took that only 1 day and stopped due to dizziness. Today her swallowing is much worse and she can take in no food and only a little water so she was transferred to [facility] from [facility] for further assessment. She denies ENRIQUEZ, CP, SOA, n/v/d/c, abd pain, fever, chills and urinary symptoms. ROS A 10-point review of systems was completed and was negative except as noted abov e. 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 Abnormal LV systolic function con sistent with a nonischemic cardiomyopathy. CARDIOVERSION 11/24/2018 Atrial Fib: Successful DCCV to NSR with one shock of 200j. CHOLECYSTECTOMY COLONOSCOPY EGD, USING BIOPSY N/A 01/01/2019 Procedure: ESOPHAGOGASTRODUODENOSCOPY, USING BIOPSY; Surgeon: Randi Stewart; Location: [facility]; Service: Gastroenterology; Laterality: N/A; FOOT SURGERY Left 1999 bunionectomy HYSTERECTOMY 03/2003 REPAIR, ROTATOR CUFF Right 04/2009 UPPER GASTROINTESTINAL ENDOSCOPY 04/2017 Family History Problem Relation Age of Onset Heart attack Mother Breast cancer Sister Lung cancer Brother Pancreatic cancer Sister Atrial fibrillation Sister Hypertension Brother Coronary artery disease Brother COPD Brother Social History Tobacco Use Smoking status: Never Smoker Smokeless tobacco: Never Used Substance Use Topics Alcohol use: Yes Alcohol/week: 7.0 standard drinks Types: 7 Glasses of wine per week Drug use: Never Allergies Allergen Reactions Cardizem [Diltiazem Hcl] Dizziness Prior to Admission medications Medication Sig BUDESONIDE ORAL Take 2 mg by mouth daily. BIOTIN ORAL Take 10,000 mcg by mouth daily. carvedilol (COREG) 25 MG tablet Take 1 tablet (25 mg total) by mouth 2 (two) geoff es a day. dofetilide (TIKOSYN) 125 MCG capsule Take 1 capsule (125 mcg total) by mouth amisha ry 12 (twelve) hours. esomeprazole (NEXIUM) 40 MG capsule Take 40 mg by mouth daily. furosemide (LASIX) 40 MG tablet Take 40 mg by mouth daily. PARoxetine (PAXIL) 10 MG tablet Take 10 mg by mouth daily. potassium chloride (KLOR-CON) 10 MEQ CR tablet Take 10 mEq by mouth daily. warfarin (COUMADIN) 1 MG tablet Take 1 tablet (1 mg total) by mouth as directed. Take once daily as directed by INR warfarin (COUMADIN) 2.5 MG tablet Take 1 tablet (2.5 mg total) by mouth every ev ening. Objective Triage Vital Signs: Temp: 36.4 C (97.6 F) Pulse: 61 Resp: 18 BP: (!) 171/81 SpO2: 95 % Height: 165.1 cm (5' 5") Weight: 90.4 kg (199 lb 4 oz) Physical Exam Gen: Calm, cooperative, and in no distress HEENT: Head: Normal, normocephalic, atraumatic. Eye: Normal external eye, conjun ctiva, eye lids, and cornea. CV: Regular rate and rhythm, No murmurs, gallops, or rubs Resp: Clear to auscultation, Breath sounds are equal and symmetric Abd: Soft, Non-tender, Non-distended, Normal bowel sounds Ext: No clubbing, cyanosis, or edema Skin: Warm, dry, skin intact with no obvious rashes or significant lesions Neuro: Alert, Oriented to person, place, date, and situation, No focal neurolog ic deficits noted ECG ordered, but has not been completed. Will review once completed. I have personally reviewed the patient's past medical, surgical, family, or soci al history and there were no changes reported. Assessment/Plan Ms. Pau Mccabe is a 69 y.o. female who was admitted on 02/07/2019 with comp laint of dysphagia. * Esophageal dysphagia GI consulted with concern for esophageal stricture s/p dilatation H/O eosinophilic esophagitis NPO, IVF NS Paroxysmal atrial fibrillation (HCC) Currently in sinus rhythm Continue tikosyn Continue warfarin, INR ordered Monitor on telemetry Esophageal stricture GI consulted JJ (obstructive sleep apnea) Not currently using CPAP Essential hypertension Continue home meds Hydralazine prn Depression Continue Paxil Son was found in ANNIE about 2 weeks ago In addition, see my orders for additional details regarding this patients treatm ent plan. Diet: Diet NPO VTE Prevention: Appropriate VTE orders and/or documentation has been completed for this patient. The patient does have an advanced directive. Her spouse/partner is her surrogate decision maker/DPOA. Code Status: Full Code Disp: Admit the patient as Inpatient to Med / Surg with telemetry for treatment as noted above. Joseline Marrero MD [facility] Medicine Division Please page through physician paging. . SKILLS TRAINER documented in this encounter Consult Notes * Chelsea Delgado MD - 02/09/2019 2:33 PM LIFE SKILLS TRAINER Associated Order(s): IP CONSULT TO CARDIOLOGY [facility] Cardiology Consult Date: 02/09/2019 Established [facility] patient: Yes: Provider: Willow Last date seen: 12/27 PCP: Yulissa Zapata MD Case discussed with Requesting Physician: No Requesting Physician: Eleazar Reason for consult: esophageal stricture Note generated by: Lakshmi Vicente APRN HPI: She is a 69 y.o. female who presented with atrial fibrillation. Pt saw Dr. Pito miranda in clinic 11/03 for ongoing SOA related to AF, previously on sotalol with episo jose becoming more frequent, developing a CM presumed to be tachycardia mediated with EF 35% on recent Echo and normal LHC. Symptoms have been consistent with [place] ENRIQUEZ III. She had dizziness with diltiazem and rates not well controled on coreg. Her past medical history also includes hypertension, depression and eosinophilic esophagitis. She was started on Tikosyn with 250mcg BID however QTc after dose one increased so dosing was decreased to 125mcg BID during hospitalization 11/27. She remain ed in Afib so she had AIDEN/DCCV completed the morning of discharge with successfu l conversion to NSR. Patient anticoagulated with warfarin managed by [facility]. She met with Dr Daugherty in 12/27 and discussed Left atrial ablation. She has complete d the CT scan but the ablation has not been scheduled; likely will be scheduled in March 2019 due to wait list. She was admitted 02/07 with worsening dysphagia a recent barium swallow revealed severe esophageal stricture. A repeat GI doctor with repeat EGD and esophageal dilatation, was told she was having esophageal spasms and prescribed diltiazem. She stopped diltiazem due to dizziness. During this hospitalization her swallowing has worsened. She had EDG today but unable to pass the scope, she likely aspirated. She has been NPO for medications and has missed several doses of warfarin and do fetilide. Cardiology was consulted to advise about atrial fibrillation manageme nt while unable to take NPO meds. 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 Abnormal LV systolic function con sistent with a nonischemic cardiomyopathy. CARDIOVERSION 11/24/2018 Atrial Fib: Successful DCCV to NSR with one shock of 200j. CHOLECYSTECTOMY COLONOSCOPY EGD, USING BIOPSY N/A 01/01/2019 Procedure: ESOPHAGOGASTRODUODENOSCOPY, USING BIOPSY; Surgeon: Randi Stewart; Location: [facility] GI; Service: Gastroenterology; Laterality: N/A; ESOPHAGOGASTRODUODENOSCOPY (EGD) N/A 02/09/2019 Procedure: ESOPHAGOGASTRODUODENOSCOPY (EGD); Surgeon: Brent Tao MD; Locati on: [facility]; Service: Gastroenterology; Laterality: N/A; FOOT SURGERY Left 1999 bunionectomy HYSTERECTOMY 03/2003 REPAIR, ROTATOR CUFF Right 04/2009 UPPER GASTROINTESTINAL ENDOSCOPY 04/2017 Social History: reports that she has never smoked. She has never used smokeless tobacco. She re ports that she drinks about 7.0 standard drinks of alcohol per week. She reports that she does not use drugs. Family History Problem Relation Age of Onset Heart attack Mother Breast cancer Sister Lung cancer Brother Pancreatic cancer Sister Atrial fibrillation Sister Hypertension Brother Coronary artery disease Brother COPD Brother Review of Systems 10 points reviewed and found negative except as noted in the HPI, or below: Review of Systems Constitutional: Positive for fever. Negative for activity change and appetite ch abbee. HENT: Positive for trouble swallowing. Respiratory: Positive for apnea. Negative for cough, chest tightness and shortne ss of breath. Cardiovascular: Negative for chest pain, palpitations and leg swelling. Gastrointestinal: Positive for vomiting. Neurological: Negative for dizziness and syncope. Allergies Allergen Reactions Cardizem [Diltiazem Hcl] Dizziness Medications-Current: budesonide 3 mg Oral Daily carvedilol 25 mg Oral BID dofetilide 125 mcg Oral Q12H esomeprazole 40 mg Oral Daily metoprolol 5 mg Intravenous Q6H AMARILYS PARoxetine 10 mg Oral Daily piperacillin-tazobactam 3.375 g Intravenous Q6H AMARILYS sodium chloride 0.9 % 75 mL/hr (02/09/19 1341) LABS & IMAGING: Xr Chest Single View Frontal Result Date: 02/09/2019 1. Findings are suggestive of bronchitis with right basilar pneumonia/aspiration. READING SITE: [facility] EKG: Normal Sinus Rhythm at 59 bpm bpm Telemetry: Normal Sinus Rhythm Most Recent Result within the last 7 days Lab Units 02/08/19 1214 02/08/19 0100 WBC TH/uL -- 6.60 HEMOGLOBIN g/dL -- 11.7* HEMATOCRIT % -- 34* PLATELET COUNT TH/uL -- 162 INR 1.7* 1.7* Recent Labs 02/08/19 0100 NA 141 CL 110 CO2 24 BUN 22 CREAT 0.9 Most Recent Result within the last 7 days Lab Units 02/08/19 0100 POTASSIUM MEQ/L 3.8 Most Recent Result within the last 7 days Lab Units 02/08/19 0100 GLUCOSE mg/dL 93 Most Recent Result within the last 7 days Lab Units 02/08/19 0100 ALKALINE PHOSPHATASE IU/L 53 PROTEIN TOTAL SERUM g/dL 6.4 ALBUMIN g/dL 3.5 ALANINE AMINOTRANSFERASE IU/L 18 ASPARTATE AMINOTRANSFERASE IU/L 25 No lab components to display No results found for: HGBA1C, NTPROBNP Coronary angiogram: Date: 09/03/18 OSH Result Impression 1. There is no angiographic evidence of obstructive coronary artery disease. 2. Abnormal left ventricular systolic function consistent with a nonischemic c ardiomyopathy. 3. Elevated biventricular filling pressures. 4. Mild pulmonary hypertension likely secondary to increased left ventricular and diastolic pressure. 5. No evidence of intracardiac shunting. 6. Normal cardiac output/cardiac index. Echocardiogram Date: 11/20/18 IMPRESSION 1. Normal left ventricular systolic function, with an estimated ejection fraction of 55%. 2. Normal right ventricular size and systolic function. 3. Very severe right and left atrial dilatation. 4. Moderate tricuspid valve regurgitation. 5. No thrombus seen in the left atrial appendage. There is 1+ spontaneou s echo contrast seen. No previous study available for comparison. PHYSICAL EXAM: Temp: [36.5 C (97.7 F)-38 C (100.4 F)] 37.1 C (98.7 F) Pulse: [64-94] 64 Resp: [16-27] 16 BP: (98-150)/(56-86) 150/73 Physical Exam Constitutional: She is oriented to person, place, and time. She appears well-dev eloped and well-nourished. No distress. HENT: Head: Normocephalic and atraumatic. Eyes: Pupils are equal, round, and reactive to light. EOM are normal. Neck: Normal range of motion. Neck supple. No JVD present. Normal carotid upstrokes. Cardiovascular: Normal rate, regular rhythm, normal heart sounds and intact dist al pulses. Pulmonary/Chest: Effort normal. Coarse rackles right base, egophany over right base Abdominal: Soft. Bowel sounds are normal. She exhibits no mass. There is no tend erness. Musculoskeletal: Normal range of motion. She exhibits no edema or tenderness. Neurological: She is alert and oriented to person, place, and time. Skin: Skin is warm and dry. No rash noted. Psychiatric: She has a normal mood and affect. Her behavior is normal. Thought c ontent normal. Nursing note and vitals reviewed. ASSESSMENT & PLAN: Principal Problem: Esophageal dysphagia Active Problems: Paroxysmal atrial fibrillation (HCC) Depression Essential hypertension JJ (obstructive sleep apnea) Esophageal stricture Dysphagia Warfarin anticoagulation Aspiration pneumonia (HCC) On dofetilide therapy Obesity (BMI 30.0-34.9) Alcohol consumption of more than four drinks per week Impression and Plan 1. Paroxysmal atrial fibrillation -Sotalol was no longer effective now on Tikosyn -Tikosyn dose reduced due to prolonged QTc on full dose -last admission required AIDEN/DCCV for conversion to SR -rate control did not tolerate dilitazem but did tolerate carvedilol 25 mg BID -while NPO, IV metoprolol 5 mg Q 6 hours for HTN and rate control -can restart tikosyn when able to take PO 2. Hypertension -IV metoprolol 5 mg Q6 hours 3. Use of warfarin - INR 1.7 this AM, Defer anticoagulation to GI team/hospitalist. 4. Previous tachycardia mediated cardiomyopapthy -with normal EF most recently 5. JJ -unable to tolerate CPAP Electronically signed by Chelsea Delgado MD, 02/09/2019 5:18 PM STAFF ATTESTATION: I, Chelsea Delgado MD, have seen and examined this patient. I have reviewed and jairo nakita the details outlined by my colleague in this note as needed. I would add the following muñiz elements of the patient's history, physical exam and plan after my personal evaluation: The patient is a very nice 69 yr old female with history of essential hypertensi on, PAF on warfarin and Tikosyn, history of tachy mediated cardiomyopathy, depre ssion which has resolved who was admitted on 02/07/19 with worsening dysphagia a nd esophageal stricture noted on a barium swallow study. She has been experienci ng nausea and vomiting when trying to eat. Today she had an EGD done and developed hypoxia and coughing after anesthesia in duction. Procedure aborted when she was noted to have food present and procedure aborted. She is NPO. CXR 02/09 right basilar pneumonia and aspiration. Labs: INR 1.7 Chem: K 3.8, BUN 22, Cr 0.9, normal LFTs WBC 6.6, Hb 11.7, Hct 34, plt 162. ECG: NSR with rate of 59 bpm QTC 444 msec Impression/Plan: 1. Paroxysmal atrial fibrillation She has risk factors for recurrence of afib including untreated JJ (unable to t olerate CPAP), obesity with BMI of 33, essential hypertension, left atrial enlar gement, every day drinker with 2 glasses of wine per day. Tikosyn is presently on hold along with carvedilol. Metoprolol 5 mg IV can be given every 6 hours for blood pressure and to keep her heart rate controlled. She is presently on warfarin and INR is subtherapeutic. Continue to monitor on telemetry 2. Essential hypertension Blood pressure is mildly elevated. 3. Aspiration pneumonia, R basilar On abx coverage presently I have performed an independent review of the following: EKG Telemetry Labs Records I have discussed the case with the following: Family Another healthcare provider Patient's daughter present SKILLS TRAINER * Jenna Borges MD - 02/08/2019 12:22 PM LIFE SKILLS TRAINER Associated Order(s): IP CONSULT TO GASTROENTEROLOGY [facility] GI Inpatient New Consult Note Name: Pau Mccabe Date:02/08/2019 Hospital Day: 1 Referring Provider: Physician Hospitalist PCP: Randi Verdin Reason for Consult: Dysphagia History of Present Illness: Pau Mccabe is a 69 y.o. female PMH/o paroxysmal atrial fibrillation on , obstructive sleep apnea, esophageal stricture who presents complaining of dysphagia. Patient initially started experiencing dysphagia in October. She reports that it has progressively worsened. She underwent an EGD on January 01, 2019 which katie wed a small hiatal hernia and did reveal eosinophilic esophagitis. Patient was started on budesonide since that time. She has been having worsening dysphagia to both solids and liquids. She reports she underwent an EGD this past week on Saturday and had dilation at an outside hospital and [place], [place]. There was also reportedly esophageal spasms and she was started on diltiazem however stopped after a day due to dizziness. Due to progressive nature of symptoms, meme jones presented to our institution for further evaluation. She denies fevers, c hills. If she eats a large amount of solid food she starts vomiting. Does endo rse 20 pound weight loss in the past couple of months due to dysphagia. No ludwig temesis, melena, hematochezia, abdominal pain. Physical Exam: Blood Pressure: BP: 106/49 Pulse: Pulse: 72 Temperature: Temp: 36.9 C (98.5 F) Respirations: Resp: 17 Admission Weight: Weight: 90.4 kg (199 lb 4 oz) O2 Saturation: SpO2: 96 % Current Weight Weight: 90.4 kg (199 lb 4 oz) BMI: Body mass index is 33.16 kg/m . No intake/output data recorded. Wt Readings from Last 3 Encounters: 02/07/19 90.4 kg (199 lb 4 oz) 12/29/18 93 kg (205 lb) 12/30/18 94.3 kg (208 lb) General: In no acute distress. Cooperative with exam. AAOx4 HENT: NCAT. Face without any abnormality. Eyes: No scleral icterus. No conjunctival erythema or redness. Neck: Trachea midline. Respiratory: Nonlabored respirations CV: Regular rate and rhythm. No murmur, rub, gallop. Abdomen: Soft. Non-tender, non-distended. Normal tympany. No guarding or rebound tenderness. Extremities. Warm. Skin: No rash, lesion, break. No jaundice. Neuro: AAOx4. Moving all extremities. Review of Systems: 12 point ROS unremarkable except as stated in HPI. Allergies Allergies Allergen Reactions Cardizem [Diltiazem Hcl] Dizziness Medications: Home Meds: Medications Prior to Admission Medication Sig Note: BUDESONIDE ORAL Take 2 mg by mouth daily. Note: BIOTIN ORAL Take 10,000 mcg by mouth daily. Note: carvedilol (COREG) 25 MG tablet Take 1 tablet (25 mg total) by mouth 2 (two) times a day. Note: dofetilide (TIKOSYN) 125 MCG capsule Take 1 capsule (125 mcg total) by mouth every 12 (twelve) hours. Note: esomeprazole (NEXIUM) 40 MG capsule Take 40 mg by mouth daily. Note: furosemide (LASIX) 40 MG tablet Take 40 mg by mouth daily. Note: PARoxetine (PAXIL) 10 MG tablet Take 10 mg by mouth daily. Note: potassium chloride (KLOR-CON) 10 MEQ CR tablet Take 10 mEq by mouth daily. N ote: warfarin (COUMADIN) 1 MG tablet Take 1 tablet (1 mg total) by mouth as direc nakita. Take once daily as directed by INR Note: warfarin (COUMADIN) 2.5 MG tablet Take 1 tablet (2.5 mg total) by mouth ever y evening. 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 Abnormal LV systolic function con sistent with a nonischemic cardiomyopathy. CARDIOVERSION 11/24/2018 Atrial Fib: Successful DCCV to NSR with one shock of 200j. CHOLECYSTECTOMY COLONOSCOPY EGD, USING BIOPSY N/A 01/01/2019 Procedure: ESOPHAGOGASTRODUODENOSCOPY, USING BIOPSY; Surgeon: Randi Stewart; Location: [facility]; Service: Gastroenterology; Laterality: N/A; FOOT SURGERY Left 1999 bunionectomy HYSTERECTOMY 03/2003 REPAIR, ROTATOR CUFF Right 04/2009 UPPER GASTROINTESTINAL ENDOSCOPY 04/2017 Social History: reports that she has never smoked. She has never used smokeless tobacco. She re ports that she drinks about 7.0 standard drinks of alcohol per week. She reports that she does not use drugs. Past Family History: family history includes Atrial fibrillation in her sister; Breast cancer in her sister; COPD in her brother; Coronary artery disease in her brother; Heart attac k in her mother; Hypertension in her brother; Lung cancer in her brother; Pancre atic cancer in her sister. Labs/Imaging/Endoscopies/Microbio: WBC H/H Plts WBC (TH/uL) Date Value 02/08/2019 6.60 01/01/2019 4.81 Hemoglobin (g/dL) Date Value 02/08/2019 11.7 (L) 01/01/2019 12.7 Hematocrit (%) Date Value 02/08/2019 34 (L) 01/01/2019 38 No components found for: PLTCT Differential: Lab Results Component Value Date MCV 97 02/08/2019 MCH 33 02/08/2019 [facility] 34 02/08/2019 MPV 11.1 02/08/2019 RDW 12.5 02/08/2019 Na Cl BUN Glu Sodium (MEQ/L) Date Value 02/08/2019 141 01/01/2019 140 11/24/2018 138 Chloride (MEQ/L) Date Value 02/08/2019 110 01/01/2019 102 11/24/2018 100 Blood Urea Nitrogen (mg/dL) Date Value 02/08/2019 22 01/01/2019 18 11/24/2018 24 No results found for: GLUCOSE K Bicarb Creatinine Ca Potassium (MEQ/L) Date Value 02/08/2019 3.8 01/01/2019 4.1 11/24/2018 3.9 11/20/2018 4.2 No components found for: BICARB No results found for: CREATININE No components found for: CA AST ALT Alk Phos Aspartate Aminotransferase (IU/L) Date Value 02/08/2019 25 Alanine Aminotransferase (IU/L) Date Value 02/08/2019 18 No components found for: ALKP T. Bili D. Bili T. Protein Albumin Bilirubin Total (mg/dL) Date Value 02/08/2019 0.8 No components found for: BILIDIRECT Protein Total Serum (g/dL) Date Value 02/08/2019 6.4 Albumin (g/dL) Date Value 02/08/2019 3.5 Ca Mg P No components found for: CA Magnesium Date Value Ref Range Status 11/24/2018 2.1 1.4 - 2.7 mg/dL Final 11/23/2018 1.8 1.4 - 2.7 mg/dL Final 11/22/2018 2.0 1.4 - 2.7 mg/dL Final No results found for: PHOS PT INR PTT Protime Date Value Ref Range Status 02/08/2019 19.8 (H) 11.4 - 15.0 sec Final 01/01/2019 22.0 (H) 11.4 - 15.0 sec Final 01/01/2019 21.7 (H) 11.4 - 15.0 sec Final INR Date Value Ref Range Status 02/08/2019 1.7 (H) 0.8 - 1.2 Final 01/13/2019 2.1 (B) 2 - 3 Final Comment: INR 2.1--recommend: cont. taking warfarin 2.5 mg every Sat, Wed, Sat: 1.5 mg a ll other days: retest in 1 week 01/01/2019 1.9 (H) 0.8 - 1.2 Final 01/01/2019 1.8 (H) 0.8 - 1.2 Final No results found for: PTT No components found for: PAB No results found for: LIPASE No components found for: KRISTINA No results found for: IRON, TIBC No results found for: CRP No components found for: LACTACID No orders to display The patient's past endoscopies, labs, imaging, microbiology were reviewed. Feliberto rader results discussed above. Assessment: Pau Mccabe is a 69 y.o. female PMH/o paroxysmal atrial fibrillation on nancy, obstructive sleep apnea, esophageal stricture who presents complaining of worsening dysphagia to solids and liquids. She underwent an EGD on January 01 which showed a small hiatal hernia and did reveal eosinophilic esophagitis. She reports she underwent an EGD this past week on Saturday and had dilation at an outside hospital and [place], [place]. There was also reportedly esophage al spasms and she was started on diltiazem however stopped after a day due to di zziness. #Esophageal Dysphagia: To both solids and liquids. Worsening despite treatment for eosinophilic esophagitis. Differential includes stricture, motility abnorma lity, severe esophagitis, other. #Eosinophilic esophagitis #Weight Loss #Paroxysmal atrial fibrillation: On warfarin at home. INR today 1.7. Recommendations: -Obtain endoscopy records from this past week from outside hospital at [facility] in [place], [place] -NPO at midnight -Hold warfarin, if anticoagulation is needed can start heparin GTT and hold at 0 500 on Saturday, February 09, 2019 -Plan for EGD on 02/09/2019, risks, benefits, alternatives explained. Informed c onsent obtained. These recommendations were communicated with the primary team, Dr. Briceño. H&P, A&P discussed with Dr. Borges. Thank you for the opportunity to participate in this patient's care. If you have any questions, please do not hesitate to contact us. Rosendo King MD PGY-4 Gastroenterology & Hepatology Fellow Disclaimer: This note was dictated using Neot[employer] software and while checked, it m ay have unintentional errors. ATTENDING ADDENDUM I saw and examined the patient with the fellow and agree with the note as below. She has a history of EoE diagnosed by Dr. Balderas. She has recurrence of dyspha sil. No concern for food bolus impaction. Will plan for EGD tomorrow. Jenna Borges MD SKILLS TRAINER documented in this encounter Nursing Notes * Lissette Fairbanks RN - 02/12/2019 3:59 PM LIFE SKILLS TRAINER Returned from GI procedure. HR a-fib VR 130 Inc of stool. Extensive clean up in bed on monitor. Cardiac medications given, with pt sitting side of bed. T * Lissette Fairbanks RN - 02/12/2019 10:33 AM LIFE SKILLS TRAINER GI MD at bedside. T * Chelsea Miller, ZULLY - 02/09/2019 12:03 PM LIFE SKILLS TRAINER Stabilized, egd stopped after noted food/fluid in esophagus SKILLS TRAINER * Kayley Herrera RN - 02/08/2019 9:00 AM LIFE SKILLS TRAINER With AM vitals, O2 noted to be 74%. Patient has gel nailpolish on fingernails & toenails. Difficulty getting accurate read on earlobe. Patient reporting mild S OA but carrying on conversation & appeared to be in no distress. Applied 2 L NC & O2 reading 96%. Updated med-teaching resident of this during morning rounding. Patient resting comfortably, reporting no further SOA. SKILLS TRAINER documented in this encounter Miscellaneous Notes * Nursing Discharge - Zohaib Helton RN - 02/13/2019 2:10 PM LIFE SKILLS TRAINER Nursing Discharge Note Patient is stable for discharge. Reviewed discharge instructions and patient ve rbalized understanding, had no further questions, and left the unit in wheel galo ir with staff. Patient traveling home with in personal Vehicle. Patient/family satisfied with progress made towards goals and ready for discharg e. SKILLS TRAINER * Care Progression Final DC Note - Dayami Bennett RN - 02/13/2019 11:49 AM LIFE SKILLS TRAINER Final Discharge Note Final Discharge Disposition: 01-Home Self Care Discharge goal and plan is mutually agreed upon by patient Patient will discharge to: home, self care Transportation: pts family Discharge Time: appr 12-1300 Special Instructions: none SKILLS TRAINER * End of Shift Note - Rula Ball RN - 02/13/2019 6:02 AM LIFE SKILLS TRAINER End of Shift Summary and Plan of Care No acute events overnight. Patient remains in afib on tele HR gets as high as 13 0's, pharmacy adjusted tikosin time because patient got yesterdays dose late. VS S. Will continue to monitor. No complaints of chest pain or discomfort. Skin Integrity Plan skin integrity maintained and preventative interventions in place, see the Integumentary flowsheet for documentation. Goals/Plan for Shift Patient/Family stated goal for shift: rest well overnight, to return back to NSR Nursing goal for shift: monitor heart rhythm, assess for any chest pain/discomfo rt Plan: telemetry monitoring, call light within reach Goals/Plan for Hospital Stay Patient/Family stated goal for hospital stay: To be able hold my food down Nursing goal for hospital stay: Improved ability to eat/drink without emesis. Plan: Coordinate care with GI staff, educate patient on plan for EGD 02/08/19, mo nitor tolerance of CLD. SKILLS TRAINER * End of Shift Note - Lissette Fairbanks RN - 02/12/2019 5:22 PM LIFE SKILLS TRAINER End of Shift Summary and Plan of Care Returned from GI procedure in afib vr 120-130. Cardiac medications given HR now 110. Toradol given for pain, pt sleeping. Update to at bedside. Cl liq diet at bedside. Skin Integrity Plan skin integrity maintained and preventative interventions in place, see the Integumentary flowsheet for documentation. Goals/Plan for Shift Patient/Family stated goal for shift: no nausea/vomiting Nursing goal for shift: tolerate full liquid diet, fall prevention, monitor for N/V, treat infection Plan: PRN medications available if needed, non slip socks on, IV abx administere d Goals/Plan for Hospital Stay Patient/Family stated goal for hospital stay: To be able hold my food down Nursing goal for hospital stay: Improved ability to eat/drink without emesis. Plan: Coordinate care with GI staff, educate patient on plan for EGD 02/08/19, mo donald tolerance of CLD. T * Operative Note - Chau Christy MD - 02/12/2019 2:02 PM LIFE SKILLS TRAINER EGD Report Date: 02/12/2019 2:02 PM Patient Name: PAU MCCABE DOB (age): 1950 (69) Gender: Female Endoscopist(s): MD David Landrum MD Instrument(s): Scope # 9 - EG - [id number] - Regular - Fujsunithan([id number]) Anesthesia Provider: Rick Sutherland MD Nurse(s): Neil Brooks RN Staff: MARIN Link ASA Information: See Anesthesia Record Administered Medications: See Anesthesia Record History of Present Illness: PAU MCCABE is being seen today for an EGD. Indications: Dysphagia - R13.10 Physical Exam: Physical exam was performed prior to anesthesia. Procedure: Prior to the procedure the risk(s), benefit(s), and alternative(s) were reviewed and discussed. The most common complications being, but not limited to; abdominal discomfort, bleeding, perforation, infection, adverse medication reaction, pain or inflammation at the IV site, and lesions not being detected during the procedure. The patient/patients national account representative appeared to understand the procedure, the potential complications, and alternatives; had the opportunity to ask questions; and informed consent was obtained. The risk/benefit ratio was deemed appropriate to proceed with the procedure. General Anesthesia was administered by nurse suit attendant. Continuous pulse oximetry and blood pressure monitoring were used throughout the procedure. Supplemental oxygen was used. Patient was placed in left lateral decubitus. The endoscope was introduced through mouth and advanced under direct visualization until second part of the duodenum reached. The vocal cords were visualized. The Z-line was noted. Patient tolerance to the procedure was good. The procedure was not difficult. Estimated Blood Loss (EBL): Less than 1 ml Limitations/Complications: There were no apparent limitations or complications Findings: Esophagus Lumen Abnormal motility of the esophagus was noted. Increased GE junction contractility s/p four quadrant 100 units - 4 cc botox injection. Stomach Normal stomach. No edema, erythema, friability, erosions, ulcerations, ulcers, masses, tumors, arteriovenous malformations, or gastric varices. Retroflexed examination of the proximal stomach did not demonstrate significant structural abnormalities. Duodenum Normal duodenum. No duodenitis, bulboduodenitis, masses, scarring, erosions, or ulcers and the duodenal folds had a normal appearance. Impressions: Normal stomach. No edema, erythema, friability, erosions, ulcerations, ulcers, masses, tumors, arteriovenous malformations, or gastric varices. Retroflexed examination of the proximal stomach did not demonstrate significant structural abnormalities. Normal duodenum. No duodenitis, bulboduodenitis, masses, scarring, erosions, or ulcers and the duodenal folds had a normal appearance. Abnormal Motility suggested by increased GE junction contractility s/p 1 cc botox injections in all four quadrants (total 4 cc). Plan: -Start Clear liquid diet if tolerated and monitor response -Aspiration precautions, head of bed elevation -GI will follow Livan Christy MD Electronically signed on 02/12/2019 3:30:41 PM by MD David Landrum MD T * End of Shift Note - Rula Ball, ZULLY - 02/12/2019 5:39 AM LIFE SKILLS TRAINER End of Shift Summary and Plan of Care No acute events overnight. Received IV antibiotics as ordered. Patient had two e pisodes of diarrhea this shift. VSS. Remains on tele running NSR. Will continue to monitor. Skin Integrity Plan skin integrity maintained and preventative interventions in place, see the Integumentary flowsheet for documentation. Goals/Plan for Shift Patient/Family stated goal for shift: no nausea/vomiting Nursing goal for shift: tolerate full liquid diet, fall prevention, monitor for N/V, treat infection Plan: PRN medications available if needed, non slip socks on, IV abx administere d Goals/Plan for Hospital Stay Patient/Family stated goal for hospital stay: To be able hold my food down Nursing goal for hospital stay: Improved ability to eat/drink without emesis. Plan: Coordinate care with GI staff, educate patient on plan for EGD 02/08/19, mo nitor tolerance of CLD. SKILLS TRAINER * End of Shift Note - Aislinn Zhong RN - 02/11/2019 5:05 PM LIFE SKILLS TRAINER End of Shift Summary and Plan of Care Condition unchanged from am assessment. Tolerating full liquids. IV patent. D enies pain. Up in chair and ambulated in halls. Skin Integrity Plan skin integrity maintained and preventative interventions in place, see the Integumentary flowsheet for documentation. Goals/Plan for Shift Patient/Family stated goal for shift: go home Nursing goal for shift: Monitor hydration/oral intake Plan: Strict I&O's, IV abx, IVF Goals/Plan for Hospital Stay Patient/Family stated goal for hospital stay: To be able hold my food down Nursing goal for hospital stay: Improved ability to eat/drink without emesis. Plan: Coordinate care with GI staff, educate patient on plan for EGD 02/08/19, mo nitor tolerance of CLD. SKILLS TRAINER * Assessment & Plan Note - Marcus Bush DO - 02/11/2019 1:28 PM LIFE SKILLS TRAINER Associated Problem(s): Aspiration pneumonia (HCC) Secondary to retained esophogeal food: -completed 3/4 days of zosyn, now has diarrhea -change to rocephin / flagyl to see if less affect on gut -repeat procalcitonin trending down SKILLS TRAINER * Sign-Off Note - Kristina Conrad, ART GILDER - 02/11/2019 9:18 AM LIFE SKILLS TRAINER [facility] Sign-Off Note Name: Pau Mccabe CPI: [id number] Date of : 1950 Primary care physician: Yulissa Zapata MD Date of admission: 02/07/2019 Date of sign-off: 02/11/2019 Admitting physician: Physician Hospitalist Reason for consult: Afib managment Current problem list: Principal Problem: Esophageal dysphagia Active Problems: Paroxysmal atrial fibrillation (HCC) Depression Essential hypertension JJ (obstructive sleep apnea) Esophageal stricture Dysphagia Warfarin anticoagulation Aspiration pneumonia (HCC) On dofetilide therapy Obesity (BMI 30.0-34.9) Alcohol consumption of more than four drinks per week Hospital course/plans: Pau Mccabe is a 69 y.o. female who is currently admitted to [facility] under the Hospitalist service. We were consulted for recommendations regarding AFib management while patient is NPO. 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 She also has hx of HTN, depression, and eosinophilic esophagit is. Patient's afib has been managed with Tikosyn 125mcg BID, previously on 250mc g BID but noted to have QTc prolongation so dose decreased during hospitalizatio n in November. She was admitted 02/07 with worsening dysphagia, a recent barium swallow reveale d severe esophageal stricture. During this hospitalization her swallowing has wo rsened. She had EGD 02/09/19 but unable to pass the scope, and concerns patient aspirated. She has been NPO for medications and has missed several doses of warf nancy and dofetilide. Cardiology was consulted to advise about atrial fibrillati on management while unable to take NPO meds. Patient hs remained in NSR this adm it. Management with IV metoprolol while NPO. She had second EGD 02/10/19. Patient diet advanced to clear liquids after EGD and patient restarted on home Tikosyn and Carvedilol for Afib management. 1. PAF - Tikosyn 125mcg BID as outpatient, held while NPO status, now restarted. - NSR on telemetry - INR 1.6 yesterday, warfarin has been on hold, recommend restart when ok with G I team/hospitalist - Hx of untreated JJ (pt unable to tolerate CPAP) 2. Previous tachy induced cardiomyopathy - EF 55% on AIDEN in November - On BB - Patient has not required diuresis this admission. - DOG OR ANIMAL SITTER medications include Lasix 40mg daily although patient states she has not t aken lasix for over a month, patient questions if she needs daily Lasix at this point. - Could consider prn lasix dosing at discharge for lower extremity edema or weig ht gain of 2-3lb in 24hrs or 5lb in one week with plan to reassess fluid status at follow up visit. 3. HTN - well controlled after restarting PO meds yesterday. 4. Aspiration pneumonia - antibiotic per primary team. Physical exam: BP 137/70 (BP Location: Right arm, Patient position: Supine) | Pulse (!) 56 | Temp 36.8 C (98.2 F) (Oral) | Resp 20 | Ht 1.651 m (5' 5") | Wt 90.6 kg ( 199 lb 11.2 oz) | SpO2 93% | BMI 33.23 kg/m Physical Exam Constitutional: She is oriented to person, place, and time. She appears well-dev eloped and well-nourished. No distress. HENT: Head: Normocephalic and atraumatic. Cardiovascular: Normal rate, regular rhythm, normal heart sounds and intact dist al pulses. Pulmonary/Chest: Effort normal and breath sounds normal. Dry cough with deep breaths. Abdominal: Soft. She exhibits no distension. Musculoskeletal: General: No edema. Neurological: She is alert and oriented to person, place, and time. Skin: Skin is warm and dry. Psychiatric: She has a normal mood and affect. Her behavior is normal. Judgment and thought content normal. Muñiz laboratory findings during this hospitalization: Most Recent Result within the last 7 days Lab Units 02/10/19 0959 02/10/19 0245 HEMOGLOBIN g/dL -- 10.4* HEMATOCRIT % -- 32* WBC TH/uL -- 10.93 PLATELET COUNT TH/uL -- 174 INR 1.6* -- CREATININE mg/dL 0.8 -- BLOOD UREA NITROGEN mg/dL 17 -- POTASSIUM MEQ/L 3.6 -- Imaging/Procedures performed during this hospitalization: CT chest w contrast Date: 02/10/2019 IMPRESSION 1. Thickening of the mid to distal esophageal wall with debris in the mid esophagus could be sequela of small hiatal hernia. Please correlate with findings on recent EGD. 2. Scattered multifocal centrilobular ground glass and nodular opacities, more confluent in the middle and right lower lobes concerning for infectious/inflammatory process. 3. Diffuse interlobular septal thickening likely superimposed interstitial edema. 4. Small bilateral pleural effusions. Cardiomegaly. 5. Mediastinal lymphadenopathy likely reactive. budesonide 3 mg Oral Daily carvedilol 25 mg Oral BID dofetilide 125 mcg Oral Q12H esomeprazole 40 mg Oral Daily PARoxetine 10 mg Oral Daily piperacillin-tazobactam 3.375 g Intravenous Q6H AMARILYS Activity limitations: None Follow up: Will be scheduled by our office. Lab testing to be completed after discharge: No labs/studies ordered or required . At this point we will plan to sign-off. We appreciate the opportunity to have p articipated in this patient's care. Please call us if we can be of any further assistance to the care of this patient. SKILLS TRAINER * Provider Clarification Response - Marcus Bush, DO - 02/11/2019 8:01 AM LIFE SKILLS TRAINER [facility] Query Respons e Note PATIENT: PAU MCCABE : 1950 ADMIT DATE: 02/07/2019 11:25 PM DISCH DATE: RESPONDING PROVIDER #: [id number] RESPONSE TEXT: The patient has aspiration pneumonia. QUERY TEXT: Pneumonia is documented in the medical record on CXR. If you agree, please docum ent a diagnosis in the record. Please specify the type of pneumonia: - Aspiration pneumonia (please also specify the aspirate) - Other (please document in the medical record) - Clinically unable to determine The patient's Clinical Indicators include: Disposition: keep inpatient with aspiration and need for EGD ( possible with i ntubation ) Possible aspiration with start of EGD, EGD revealed food / liquid in her esop hogeal, had increased O2 requirement, but now able to return to room, mild disco mfort with feeling of something being stuck CXR=IMPRESSION: 1.Findings are suggestive of bronchitis with right basilar pneumonia/aspiration. Phone: Options provided: -- Aspiration pneumonia (please also specify the aspirate) -- Other (please document in the medical record) -- Clinically unable to determine Query created by: Tashia Swift on 02/10/2019 3:32 PM Electronically signed by: MARCUS VAUGHAN DO 02/11/2019 8:00 AM SKILLS TRAINER * End of Shift Note - Toamsa Foreman RN - 02/11/2019 6:44 AM LIFE SKILLS TRAINER End of Shift Summary and Plan of Care Patient switched back to oral Coreg this shift d/t no longer being NPO. Patient tolerating CLD. Continues on IV abx, IVF. NSR/murray on tele. VSS will continue t o monitor. Skin Integrity Plan skin integrity maintained and preventative interventions in place, see the Integumentary flowsheet for documentation. Goals/Plan for Shift Patient/Family stated goal for shift: IV to stop beeping Nursing goal for shift: Monitor hydration/oral intake Plan: Strict I&O's, IV abx, IVF Goals/Plan for Hospital Stay Patient/Family stated goal for hospital stay: To be able hold my food down Nursing goal for hospital stay: Improved ability to eat/drink without emesis. Plan: Coordinate care with GI staff, educate patient on plan for EGD 02/08/19, mo nitor tolerance of CLD. SKILLS TRAINER * End of Shift Note - Kayley Herrera RN - 02/10/2019 7:49 PM LIFE SKILLS TRAINER End of Shift Summary and Plan of Care Patient is A&Ox4. NPO prior to EGD. Advanced to CLD this AM following EGD & tolerating well. Took Tikosyn on return. Continues on IVF. IV Metoprolol. Up ad teresa. Family at bedside. IV ABX administered. Toradol x1 for headache. NSR on te le. Skin Integrity Plan skin integrity maintained and preventative interventions in place, see the Integumentary flowsheet for documentation. Goals/Plan for Shift Patient/Family stated goal for shift: To be able to swallow pills when I get leonardo k from EGD so I can take Tikosyn again. Nursing goal for shift: Successful EGD. Continue NPO, IVF. Maintain NSR. Plan: Coordinate care with GI lab for EGD. Continue NPO. IV Lopressor. Monitor o n telemetry. Goals/Plan for Hospital Stay Patient/Family stated goal for hospital stay: To be able hold my food down Nursing goal for hospital stay: Improved ability to eat/drink without emesis. Plan: Coordinate care with GI staff, educate patient on plan for EGD 02/08/19, mo nitor tolerance of CLD. SKILLS TRAINER * Nutrition Note - Lilliam Lai RD - 02/10/2019 11:50 AM LIFE SKILLS TRAINER Nutrition Assessment [facility] DIAGNOSIS & INTERVENTION: DIAGNOSIS 1 Nutrition Diagnosis 1: NI 1.6 Predicted suboptimal energy intake Related To: hx of swallowing problems As Evidenced By: NPO status, GI testing today Goal: Maintain present weight +/- 5%, Avoid prolonged NPO status Time Frame: Within 72 hours Goal Status: New goal established Intervention/Plan 1a: RD to follow diet advancement, avoid prolonged NPO status and advance diet as soon as medically able. Intervention/Plan 1b: Will follow nutrition. REASON FOR CONSULT: Pos nutrition screen Patient: Pau Mccabe Age: 69 y.o. : 1950 PRIMARY CARE PROVIDER: Yulissa Zapata MD ATTENDING PHYSICIAN: Marcus Bush DO HISTORY OF PRESENT ILLNESS: 69 yr old female admitted for treatment of esophageal strictures. EGD today. FOOD & NUTRITION RELATED HISTORY: Diet Order: Dietary Orders (From admission, onward) Start Ordered 02/10/19 0001 Diet NPO Diet effective midnight Comments: NPO after midnight (including tube feedings), night before procedure unless split prep is used. 02/09/19 1410 Energy Intake Total Energy Intake: Pt last ate sherbet and jello x 2 days ago. Fluid / Beverage Intake Food Intake Amount of Food: NPO currently ANTHROPOMETRICS Height: 165.1 cm (5' 5") Weight: 90.6 kg (199 lb 11.2 oz) Weight Change: 0 BMI (Calculated): 33.2 Usual Body Weight: 96.2 kg (212 lb) [place] Body Weight: 56.7 kg (125 lb) % [place] Body Weight: 159 % % Weight Loss In Weeks: Pt reports 13 lb wt loss x 6 weeks. 6% wt loss x 6 weeks . NUTRITION FOCUSED PHYSICAL FINDINGS: Overall Appearance: Adult female lying in bed; family present Body Language: cooperative Cardiovascular - Pulmonary: room air; afib HTN HLD Extremities, Muscles and Bones: trace BLE edema; no s/s muscle wasting or fat lo sses Digestive System (Mouth to Rectum): LBM 12/ Head and Eyes: WNL Nerves and Cognition: A&O Skin: intact Malnutrition criteria: Malnutrition Recommendation - Physician Alert Malnutrition Rec to Provider: No Recommendation MEDS AND LABS REVIEWED: Pertinent Labs: reviewed Pertinent Meds: coumadin Intake/Output Summary (Last 24 hours) at 02/10/2019 1150 Last data filed at 02/10/2019 0808 Gross per 24 hour Intake 560 ml Output 900 ml Net -340 ml NUTRITION PRESCRIPTION: Estimated Energy Needs Total Energy Estimated Needs: 4987-9010 kcal/day Method for Estimating Needs: MSJ 1.2-1.4 Estimated Protein Needs Total Protein Estimated Needs: 57-68 gm/day Method for Estimating Needs: 1.0-1.2 gm/day Fluid Needs Total Fluid Estimated Needs: per MD MONITORING/EVALUATION: 1. Food & Nutrition Related Hx: Energy Intake 2. Anthropometrics: Weight change 3. Biochemical: Nutrition related labs 4. Nutrition-focused physical findings: GI function, skin Electronically signed by Lilliam Lai 02/10/2019 11:50 AM SKILLS TRAINER * Operative Note - Anthony Camilo MD - 02/10/2019 9:00 AM LIFE SKILLS TRAINER EGD Report Date: 02/10/2019 9:00 AM Patient Name: PAU PANG (age): 1950 (69) Gender: Female Endoscopist(s): Anthony Camilo MD Instrument(s): Scope # 3 - EG - 600WR - Regular - Fujinon([id number]) Anesthesia Provider: Lorie Yadav MD Nurse(s): Lorena Moran, parts advisor: Per Johnston CRNA ASA Information: See Anesthesia Record Administered Medications: See Anesthesia Record History of Present Illness: PAU MCCABE is being seen today for an EGD. Indications: Dysphagia - R13.10 Procedure: Prior to the procedure the risk(s), benefit(s), and alternative(s) were reviewed and discussed. The most common complications being, but not limited to; abdominal discomfort, bleeding, perforation, infection, adverse medication reaction, pain or inflammation at the IV site, and lesions not being detected during the procedure. The patient/patients national account representative appeared to understand the procedure, the potential complications, and alternatives; had the opportunity to ask questions; and informed consent was obtained. The risk/benefit ratio was deemed appropriate to proceed with the procedure. General Anesthesia was administered by physician. Continuous pulse oximetry and blood pressure monitoring were used throughout the procedure. Supplemental oxygen was used. Patient was placed in supine. The endoscope was introduced through mouth and advanced under direct visualization until second part of the duodenum reached. Patient tolerance to the procedure was good. The procedure was not difficult. Findings: Esophagus Lumen Abnormal motility of the esophagus compatible with aperistalsis was noted. Mucosa Diffuse continuous corrugated mucosa and linear furrows of the mucosa was noted in the whole esophagus. These findings are compatible with esophagitis. These findings were suggestive of eosinophilic esophagitis. Stomach Mucosa Normal mucosa was noted in the whole stomach. Additional stomach findings Other than the findings described,retroflex examination did not demonstrate significant structural abnormalities and there was no edema, erythema, friability, erosions, ulcerations, ulcers, masses, tumors, arteriovenous malformations, or gastric varices.. Duodenum Mucosa Normal mucosa was noted in the whole examined duodenum. Additional duodenum findings Other than the findings described, there was no duodenitis, bulboduodenitis, masses, or scarring.. Impressions: Corrugated mucosa and linear furrows in the whole esophagus compatible with esophagitis. Abnormal Motility. Normal mucosa in the whole stomach. Other than the findings described,retroflex examination did not demonstrate significant structural abnormalities and there was no edema, erythema, friability, erosions, ulcerations, ulcers, masses, tumors, arteriovenous malformations, or gastric varices. . Normal mucosa in the whole examined duodenum. Other than the findings described, there was no duodenitis, bulboduodenitis, masses, or scarring. . Plan: Further recommendations as per the inpatient gastroenterology consultation service. Additional Notes: The gastroscope passed easily through the GE junction. No stricture or rings were present and there was no food or debris in the esophagus. The presentation is concerning for achalasia. Anthony Camilo MD Electronically signed on 02/10/2019 4:02:20 PM by Anthony Camilo MD SKILLS TRAINER * End of Shift Note - Julio C Pineda RN - 02/10/2019 7:37 AM LIFE SKILLS TRAINER End of Shift Summary and Plan of Care Pt did have a 7 beat run of SVT on tele. VSS, no other events overnight. No c/o pain. Skin Integrity Plan skin integrity maintained and preventative interventions in place, see the Integumentary flowsheet for documentation. Goals/Plan for Shift Patient/Family stated goal for shift: rest, EGD in AM Nursing goal for shift: EGD tomorrow, keep NPO, IVF, start IV Lopressor Plan: NPO, give meds as ordered, EGD in AM Goals/Plan for Hospital Stay Patient/Family stated goal for hospital stay: To be able hold my food down Nursing goal for hospital stay: Improved ability to eat/drink without emesis. Plan: Coordinate care with GI staff, educate patient on plan for EGD 02/08/19, mo nitor tolerance of CLD. SKILLS TRAINER * Care Progression Initial Assessment - Dayami Bennett, ZULLY - 02/09/2019 1:27 PM LIFE SKILLS TRAINER Care Progression Initial Assessment Note Admit for Dysphagia. History of a-fib-takes Tikosyn and Coumadin, JJ-no cpap, H TN, Depression, Esophagitis, CHF, CM, Tricuspid Regurg. IVF's started. EGD done. Family at bedside. Anticipated dc plan: home, self care. Referral to see patient was placed by Referral Source: Care Progression , Referral Reason: Discharge planning, Initial Assessment Initial assessment completed and Information obtained from: : patient Introduced self and purpose of meeting with the patient and is agreeable to inte rview at this time. In talking with patient, family at bedside Patient's Living Arrangement: House Patients support system has been Support System: Spouse/significant other, ildren Patient has verbalized the following concerns at discharge: none identified Pt has Payor: MEDICARE / Plan: MEDICARE PART A B / Product Type: Medicare / Patient currently uses at home: no DME Patient states their Income Source: Not employed. Not employed: Retired, Sher nment Assistance: Medicare Income/Expense Information: Income meets expenses Resources Available: Rx benefits Verified that patients primary care physician is Yulissa Zapata MD and mukul es their medications from [facility] #[id number] [facility] [address] [facility] [address] [facility] [address] [facility] [address] [place] [address] [facility] [address] DAYAMI BENNETTRN [employer] [phone] SKILLS TRAINER * End of Shift Note - Kayley Herrera RN - 02/09/2019 12:38 PM LIFE SKILLS TRAINER End of Shift Summary and Plan of Care Patient is A&Ox4. Denies pain. Afebrile. SBA for transfers/ambulation in room. Received Coreg & Tikosyn with sips of water prior to EGD, otherwise NPO. No emesis. Off unit for EGD until 1320. Returned on 2 L NC. Inspiratory wheeze with activity. Started on Zosyn. NPO status. IVF restarted. PRN Toradol x1 for headache. New consult for cardiology. Orders for Metoprolol IV Q6H since pt unable to have PO meds. Family at bedside. Continuing to monitor. Skin Integrity Plan skin integrity maintained and preventative interventions in place, see the Integumentary flowsheet for documentation. Goals/Plan for Shift Patient/Family stated goal for shift: To figure out what's going on and fix it. Nursing goal for shift: Complete EGD today. Be able to manage fluid intake witho ut emesis on return. Plan: Coordinate care with GI lab for planned EGD. Monitor labs & vitals. Monitor for tolerance of diet on return. Goals/Plan for Hospital Stay Patient/Family stated goal for hospital stay: To be able hold my food down Nursing goal for hospital stay: Improved ability to eat/drink without emesis. Plan: Coordinate care with GI staff, educate patient on plan for EGD 02/08/19, onel dengor tolerance of CLD. SKILLS TRAINER * Operative Note - Brent Tao MD - 02/09/2019 9:30 AM LIFE SKILLS TRAINER EGD Report Date: 02/09/2019 9:30 AM Patient Name: PAU MCCABE (age): 1950 (69) Gender: Female Endoscopist(s): MD David Alonso MD Instrument(s): Scope # 6 - EG - 600WR - Regular - Fujinon([id number]) Anesthesia Provider: Dayton Hopkins MD Nurse(s): Chelsea Miller RN Staff: MARIN Espinosa ASA Class: P3 - 02/09/2019 12:03 PM Brent Tao MD ASA Information: See Anesthesia Record Administered Medications: See Anesthesia Record History of Present Illness: PAU MCCABE is being seen today for an EGD. Indications: Dysphagia - R13.10 Eosinophilic Esophagitis: 530.13 - K20.0 Physical Exam: Physical exam was performed prior to anesthesia. Procedure: Prior to the procedure the risk(s), benefit(s), and alternative(s) were reviewed and discussed. The most common complications being, but not limited to; abdominal discomfort, bleeding, perforation, infection, adverse medication reaction, pain or inflammation at the IV site, and lesions not being detected during the procedure. The patient/patients national account representative appeared to understand the procedure, the potential complications, and alternatives; had the opportunity to ask questions; and informed consent was obtained. The risk/benefit ratio was deemed appropriate to proceed with the procedure. MAC with IV sedation was administered by anesthesiologist. Continuous pulse oximetry and blood pressure monitoring were used throughout the procedure. Supplemental oxygen was used. Patient was placed in left lateral decubitus. The endoscope was introduced through mouth and advanced under direct visualization until upper esophageal sphincter reached. Patient tolerance to the procedure was poor. The procedure was not difficult. Estimated Blood Loss (EBL): Less than 1 ml Limitations/Complications: There were no apparent complications Hypoxia. Impressions: . Patient became hypoxic and coughing after anesthesia induction which resolved after placement of oxygen mask. Immediately after bypassing the upper esophageal sphincter large amounts of liquids and solid material was seen and hence the procedure was aborted. Plan: -Recommend stat CXR, monitor for signs/symptoms of pneumonia -Continue close monitoring of the patient's hemodynamics -Keep strict NPO -Patient would need to be intubated for airway protection prior to repeat endoscopy -Further recommendations per the inpatient GI consult service Brent Tao MD Electronically signed on 02/09/2019 12:04:07 PM by MD David Alonso MD SKILLS TRAINER * End of Shift Note - Jono Negron RN - 02/09/2019 5:31 AM LIFE SKILLS TRAINER End of Shift Summary and Plan of Care Patient denies pain. Patient has been NPO since midnight. NSR on telemetry. Has EGD today. Will continue to monitor. Skin Integrity Plan skin integrity maintained and preventative interventions in place, see the Integumentary flowsheet for documentation. Goals/Plan for Shift Patient/Family stated goal for shift: stay NPO for EGD Nursing goal for shift: NPO after midnight Plan: maintain npo Goals/Plan for Hospital Stay Patient/Family stated goal for hospital stay: To be able hold my food down Nursing goal for hospital stay: Improved ability to eat/drink without emesis. Plan: Coordinate care with GI staff, educate patient on plan for EGD 02/08/19, mo nitor tolerance of CLD. SKILLS TRAINER * End of Shift Note - Kayley Herrera RN - 02/08/2019 5:18 PM LIFE SKILLS TRAINER End of Shift Summary and Plan of Care Patient is A&Ox4. Advanced to CLD this AM. Took scheduled AM meds. Patient had emesis late AM. PRN Tylenol x1 for c/o headache, leg cramps. Advanced to full liquid diet this PM. Ate 100% dinner, then had emesis post-meal. Holding warfarin this PM. Plan for NPO at midnight & EGD tomorrow. Faxed request for medical records to [facility] at [place], [place]. NSR on telemetry. Continuing to monitor. Skin Integrity Plan skin integrity maintained and preventative interventions in place, see the Integumentary flowsheet for documentation. Goals/Plan for Shift Patient/Family stated goal for shift: To be able to hold my foods down Nursing goal for shift: Able to tolerate CLD, manage pain Plan: Monitor tolerance of CLD, continue with IVF, administer PRN Tylenol as ind icated & monitor for effectiveness. Goals/Plan for Hospital Stay Patient/Family stated goal for hospital stay: To be able hold my food down Nursing goal for hospital stay: Improved ability to eat/drink without emesis. Plan: Coordinate care with GI staff, educate patient on plan for EGD 02/08/19, mo nitor tolerance of CLD. SKILLS TRAINER * End of Shift Note - Jono Negron RN - 02/08/2019 4:47 AM LIFE SKILLS TRAINER End of Shift Summary and Plan of Care Patient data base complete IV intact with continuous fluids. IV ativan given pe r physician order check EMAR. Tikosyn delayed due to medication availability. Meme jones is NPO as of arrival. Skin intact. NSR on telemetry. No concerns at the mo ment. Will continue to monitor. Skin Integrity Plan skin integrity maintained and preventative interventions in place, see the Integumentary flowsheet for documentation. Goals/Plan for Shift Patient/Family stated goal for shift: figure out what is going on Nursing goal for shift: maintain patient NPO Plan: Keep patient NPO Goals/Plan for Hospital Stay Nursing goal for hospital stay: Plan: SKILLS TRAINER * Assessment & Plan Note - Marcus Bush, - 02/08/2019 12:56 AM LIFE SKILLS TRAINER Associated Problem(s): Paroxysmal atrial fibrillation (HCC) Currently in sinus rhythm: -continue dofetilide as PO allows -continue to hold warfarin as needs repeat EGD today SKILLS TRAINER * Assessment & Plan Note - Marcus Bush DO - 02/08/2019 12:56 AM LIFE SKILLS TRAINER Associated Problem(s): Essential hypertension Continue coreg SKILLS TRAINER * Assessment & Plan Note - Marcus Bush DO - 02/08/2019 12:55 AM LIFE SKILLS TRAINER Associated Problem(s): Depression Continue Paxil SKILLS TRAINER * Assessment & Plan Note - Marcus Bush DO - 02/08/2019 12:54 AM LIFE SKILLS TRAINER Associated Problem(s): Esophageal dysphagia Concern for esophageal stricture s/p dilatation at outside hospital: -history of eosinophilic esophagitis -failed EGD attempt with possible aspiration 02/09 -repeat EGD 02/10/19 without stricture, clinical concern for achalasia -failed trial of clear liquid diet -plan Botox today as did not tolerate PO SKILLS TRAINER * Hospital Course - Marcus Bush DO - 02/08/2019 12:45 AM LIFE SKILLS TRAINER 69 y.o. female with h/o Afib on Tikosyn and coumadin, JJ (not on CPAP), HTN, de pression and eosinophilic esophagitis who was admitted on 02/07/2019 with worsen ing dysphagia. She had an EGD last month with Dr. Balderas and was diagnosed wit h eosinophilic esophagitis and is being treated with viscous budesonide. She co ntinued to have dysphagia and last Saturday had a barium swallow which revealed se moses esophageal stricture. Her PCP was unable to reach the [facility] GI clinic so she saw a different GI doctor and on Saturday had a repeat EGD with esophageal dil atation. She reported that that doctor told her she was having esophageal spasms and pres cribed diltiazem. She took that only 1 day and stopped due to dizziness. She t hen presented when her swallowing became much worse and she could not take in fo od and only a little water so she was transferred to [facility]. During EGD Attempt 02/09/2019, she appeared to aspirate secondary to retained flu id and food in her esophagus. Repeat EGD done 02/10/19 did not find evidence of retained food or stricture. GI suspects achalasia and recommends outpatient man ometry at [facility] as outpatient. She will be started on clear liquid diet and initially tolerated but then could not keep down even pills. She continues to bring up frothy substance. SKILLS TRAINER documented in this encounter Plan of Treatment Not on filedocumented as of this encounter Procedures Comments Procedure Name Priority Date/Time Associated Diag nosis ESOPHAGOGASTRODUODENOSCOP 02/12/2019 Achalasia Y, WITH BOTULINUM TOXIN 2:42 PM LIFE SKILLS TRAINER INJECTION Special Needs Dysphagia. Plan for Botox injection for suspected achalasia. Consider intubation due to previous aspiration . CLOSTRIDIUM DIFFICILE STAT 02/12/2019 TOXIN BY PCR 10:45 AM LIFE SKILLS TRAINER PROTHROMBIN TIME/INR Routine 02/12/2019 1:25 AM LIFE SKILLS TRAINER PROCALCITONIN Routine 02/12/2019 1:25 AM LIFE SKILLS TRAINER COMPLETE BLOOD COUNT Routine 02/12/2019 1:25 AM LIFE SKILLS TRAINER ESOPHAGOGASTRODUODENOSCOP 02/10/2019 Esophageal stricture, Y (EGD) 3:15 PM LIFE SKILLS TRAINER needs intubation. Special Needs Esophageal stricture, needs intubation . B12/FOLATE Add-On 02/10/2019 10:00 AM LIFE SKILLS TRAINER RENAL PANEL Routine 02/10/2019 9:59 AM LIFE SKILLS TRAINER PROTHROMBIN TIME/INR STAT 02/10/2019 9:[address] CHEST W CONTRAST Routine 02/10/2019 9:29 AM LIFE SKILLS TRAINER PROCALCITONIN Routine 02/10/2019 2:45 AM LIFE SKILLS TRAINER COMPLETE BLOOD COUNT Routine 02/10/2019 2:45 AM LIFE SKILLS TRAINER XR CHEST SINGLE VIEW Routine 02/09/2019 FRONTAL 12:26 PM LIFE SKILLS TRAINER ESOPHAGOGASTRODUODENOSCOP 02/09/2019 Dysphagia, assess need Y (EGD) 11:40 AM LIFE SKILLS TRAINER for dilation Special Needs Dysphagia, assess need for dilation XR OUTSIDE IMAGES FOR Routine 02/09/2019 Encounte r for PACS 7:05 AM LIFE SKILLS TRAINER consultation XR ABDOMEN OUTSIDE IMAGES Routine 02/09/2019 [place] unter for FOR PACS 7:05 AM LIFE SKILLS TRAINER consultation PROTHROMBIN TIME/INR Routine 02/08/2019 12:14 PM LIFE SKILLS TRAINER ECG Routine 02/08/2019 1:12 AM LIFE SKILLS TRAINER PROTHROMBIN TIME/INR Routine 02/08/2019 1:00 AM LIFE SKILLS TRAINER COMPREHENSIVE METABOLIC Routine 02/08/2019 PANEL 1:00 AM LIFE SKILLS TRAINER CBC AND DIFF (MANUAL DIFF Routine 02/08/2019 IF NECESSARY) 1:00 AM LIFE SKILLS TRAINER documented in this encounter Results * Clostridium Difficile Toxin by PCR (02/12/2019 10:45 AM LIFE SKILLS TRAINER) C difficile Not DetectedComment: NEGATIVE Not Detected [facility] for C. difficile toxin by PCR Hospita l Lab Specimen Stool Performing Organization Address [facility] Ph one Number [address] [address] LABORATORIES [facility] [address] [place] [address] * Prothrombin Time/INR (02/12/2019 1:25 AM LIFE SKILLS TRAINER) Only the most recent of 4 results within the time period is included. Protime 17.6 (H) 11.4 - 15.0 sec [facility] INR 1.5 (H) 0.8 - 1.2 [facility] Specimen Blood Performing Organization Address [facility] Ph one Number [address] [address] LABORATORIES [facility] [address] [place] [address] * Complete Blood Count (02/12/2019 1:25 AM LIFE SKILLS TRAINER) Only the most recent of 2 results within the time period is included. WBC 6.08 4.00 - 11.00 TH/uL [facility] RBC 3.27 (L) 4.00 - 5.00 MIL/uL [facility] Hemoglobin 10.7 (L) 12.0 - 15.0 g/dL [facility] Hematocrit 31 (L) 36 - 45 % [facility] MCV 95 80 - 99 fL [facility] MCH 33 27 - 34 pg [facility] MCHC 35 32 - 36 % [facility] RDW 11.9 11.5 - 14.5 % [facility] Platelet Count 225 140 - 400 TH/uL [facility] MPV 10.4 9.4 - 12.3 fL [facility] Nucleated RBCs 0 0 - 0 /100 [facility] Specimen Blood Performing Organization Address [facility] one Number [address] [address] [address] [address] * Procalcitonin (02/12/2019 1:25 AM LIFE SKILLS TRAINER) Only the most recent of 2 results within the time period is included. Procalcitonin 0.51 (H) 0.00 - 0.10 ng/mL [facility] Comment: Hospital Lab PCT Value Interpretation 0.10 - 0.25 Low risk for bacterial infection >0.25 Increased risk lower respiratory infection >0.50 Increased risk sepsis >2.00 High risk sepsis If Procalcitonin is >0.25, repeat in 48 hours to guide antibiotic cessation in lower respiratory tract infection. If Procalcitonin is >0.5, repeat in 24 hours to guide antibiotic cessation in sepsis. Procalcitonin is most useful when levels are performed serially with consideration of clinical data. Decisions regarding antibiotic use should not be based exclusively on procalcitonin levels. Specimen Blood Performing Organization Address City/[facility] Ph one Number [place] [phone] LABORATORIES [facility] [address] [place] [address] * B12/Folate (02/10/2019 10:00 AM LIFE SKILLS TRAINER) VITAMIN B12 306 239 - 931 pg/mL [facility] Folate 9.2 3.4 - 20.0 ng/mL [facility] Specimen Blood Performing Organization Address City/[facility] Ph one Number [address] [address] LABORATORIES [facility] [address] [place] [address] * Renal Panel (02/10/2019 9:59 AM LIFE SKILLS TRAINER) Sodium 138 133 - 147 MEQ/L [facility] Potassium 3.6 3.5 - 5.3 MEQ/L [facility] Chloride 106 96 - 112 MEQ/L [facility] Carbon Dioxide 22 20 - 32 MEQ/L [facility] Anion Gap 10 5 - 17 [facility] Calcium 8.2 (L) 8.4 - 10.5 mg/dL [facility] Glucose 73 70 - 100 mg/dL [facility] Albumin 3.1 (L) 3.5 - 5.0 g/dL [facility] Blood Urea 17 7 - 26 mg/dL [facility] Creatinine 0.8 0.4 - 1.1 mg/dL [facility] eGFR Female AA 85 60 - 200 [facility] mL/min/1.73sq Hospital Lab eGFR Female 71 60 - 200 [facility] Non-AA mL/min/1.73sq Hospital Lab Phosphorus 3.7 2.5 - 4.5 mg/dL [facility] Specimen Blood Performing Organization Address [facility] Ph one Number [facility] [address] [place] [address] LABORATORIES [facility] [address] [place] [address] * CT Chest w contrast (02/10/2019 9:29 AM LIFE SKILLS TRAINER) Specimen Impressions Performed At 1. Thickening of the mid to distal esophageal wall wi th debris in the [place] mid esophagus could be sequela of small hiatal hernia. Please correlate with findings on recent EGD. 2. Scattered multifocal centrilobular g round glass and nodular opacities, more confluent in the middle and right lower lobes concerning for infectious/inflammatory process. 3. Diffuse interlobular septal thickeni ng likely superimposed interstitial edema. 4. Small bilateral pleural effusions. C ardiomegaly. 5. Mediastinal lymphadenopathy likely r eactive. ATTESTATION STATEMENT: The staff radiologist has personally re viewed the images and dictated, reviewed or edited the final report. READING SITE: [facility] Narrative Performed At Patient: PAU MCCABE Sex#: F #: [id number] Natacha #: [id number] Location: [facility] [id number] 7410-01 Accession# : [id number] Procedure Requested: [id number] CT CHEST W CONTRAST Reason for Exam: Rule out external co mpression, dysphagia Exam Ordered: 02/09/2019 15 59 Exam Date/Time: 02/10/2019 092 9 Begin exam date/time: 02/10/[address] CHEST W CONTRAST INDICATION: Rule out external cristopher tata, dysphagia Comparison: Chest radiograph 02/09/2019. TECHNIQUE: Following the uneventful adm inistration of 65 ml Omnipaque 350 intravenous contrast, axial CT sect ions were obtained through the lungs and upper abdomen. Coronal MIP im ages and coronal and sagittal multiplanar reconstructions were also o btained. FINDINGS: Lungs and Airways: Diffuse interlobular septal thickening. Scattered multifocal centrilobular groundglass an d nodular opacities, more confluent in the middle and right lower lobes. Bilateral lower lobe relaxation atelectasis. Scattered multi focal mucus plugging. Pleura: Small bilateral pleural effusio ns. No pneumothorax. Heart and Mediastinum: The visualized p ortions of the thyroid gland are normal in size and attenuation. No axil kavon or supraclavicular lymphadenopathy. Mediastinal lymphadeno quin, including a 1.1 cm right lower paratracheal lymph node (series 3 , image 70) and 1.1 cm right upper paratracheal lymph node (image 53 ). Mild cardiomegaly. No pericardial effusion. Coronary artery c alcifications. Mild atherosclerotic calcification of the th oracic aorta and branches. Mildly dilated pulmonary trunk measuring 3.2 c m suggestive of pulmonary hypertension. Thickening of the mid to distal esophageal wall with debris in the mid esophagus. Small hiat al hernia. Abdomen: Limited images through the upp er abdomen show no abnormality of the visualized abdominal organs. Bones and Soft Tissues: Mild thoracic s pondylosis. The visualized soft tissues of the chest wall are within no rmal limits. Procedure Note Interface, Rad Results In - 02/10/2019 12:58 PM LIFE SKILLS TRAINER Patient: PAU MCCABE Sex#: F #: [id number] Natacha#: [id number] Location: [address] [address]10-01 Procedure Requested: [id number] CT CHEST W CONTRAST Reason for Exam: Rule out external compression, dysphagia Exam Ordered: 02/09/2019 1559 Exam Date/Time: 02/10/2019 0929 Begin exam date/time: 02/10/[address] CHEST W CONTRAST INDICATION: Rule out external compression, dysphagia Comparison: Chest radiograph 02/09/2019. TECHNIQUE: Following the uneventful administration of 65 ml Omnipaque 350 intravenous contrast, axial CT secti ons were obtained through the lungs and upper abdomen. Coronal MIP images and coronal and sagittal multiplanar reconstructions were also obtained. FINDINGS: Lungs and Airways: Diffuse interlobular septal thickening. Scattered multifocal centrilobular groundglass and nodular opacities, more confluent in the middle and right lower lobes. Bilateral lower lobe relaxation atelectasis. Scattered multifocal mucus plugging. Pleura: Small bilateral pleural effusions. No pneumothorax. Heart and Mediastinum: The visualized portions of the thyroid gland are normal in size and attenuation. No axillary or supraclavicular lymphadenopathy. Mediastinal lymphadenopathy, including a 1.1 cm right lower paratracheal lymph node (series 3, image 70) and 1.1 cm right upper paratracheal lymph node (image 53). Mild cardiomegaly. No pericardial effusion. Coronary artery calcifications. Mild atherosclerotic calcification of the thoracic aorta and branches. Mildly dilated pulmonary trunk measuring 3.2 cm suggestive of pulmonary hypertension. Thickening of the mid to distal esophageal wall with debris in the mid esophagus. Small hiatal hernia. Abdomen: Limited images through the upper abdomen show no abnormality of the visualized abdominal organs. Bones and Soft Tissues: Mild thoracic spondylosis. The visualized soft tissues of the chest wall are within normal limits. IMPRESSION 1. Thickening of the mid to distal esoph ageal wall with debris in the mid esophagus could be sequela of small hiatal hernia. Please correlate with findings on recent EGD. 2. Scattered multifocal centrilobular gr ound glass and nodular opacities, more confluent in the middle and right lower lobes concerning for infectious/inflammatory process. 3. Diffuse interlobular septal thickenin g likely superimposed interstitial edema. 4. Small bilateral pleural effusions. Ca rdiomegaly. 5. Mediastinal lymphadenopathy likely re active. ATTESTATION STATEMENT: The staff radiologist has personally reviewed the images and dictated, reviewed or edited the final report. READING SITE: [facility] Performing Organization Address City/State/Zipcode Ph one Number [place] * XR Chest single view frontal (02/09/2019 12:26 PM LIFE SKILLS TRAINER) Specimen Impressions Performed At 1. Findings are suggestive of bronchitis with right b asilar MCKESSON pneumonia/aspiration. READING SITE: [facility] Narrative Performed At Patient: PAU MCCABE Sex#: F #: [id number] Natacha #: [id number] Location: [facility] [id number] 7410-01 Accession# : [id number] Procedure Requested: [id number] XR CHEST SINGLE VIEW FRONTAL Reason for Exam: rule out aspiration pneumonia. Exam Ordered: 02/09/2019 12 06 Exam Date/Time: 02/09/2019 122 6 Begin exam date/time: 02/09/2019 120 6 XR CHEST SINGLE VIEW FRONTAL INDICATION: rule out aspiration pneumon ia.. COMPARISON STUDY: None. FINDINGS: Lungs/Pleura: Bilateral perihilar perib ronchial thickening is present. Heterogeneous opacities are present in the right lung base. Heart and Mediastinum: Stable cardiomed iastinal silhouette and great vessels. Bones and Soft Tissues: Stable regional skeleton and soft tissues. Procedure Note Interface, Rad Results In - 02/09/2019 12:35 PM LIFE SKILLS TRAINER Patient: PAU MCCABE Sex#: F #: [id number] Natacha#: [id number] Location: [facility] E7E 7410-01 Procedure Requested: [id number] XR CHEST SINGLE VIEW FRONTAL Reason for Exam: rule out aspiration pneumonia. Exam Ordered: 02/09/2019 1206 Exam Date/Time: 02/09/2019 1226 Begin exam date/time: 02/09/2019 1206 XR CHEST SINGLE VIEW FRONTAL INDICATION: rule out aspiration pneumonia.. COMPARISON STUDY: None. FINDINGS: Lungs/Pleura: Bilateral perihilar peribronchial thickening is present. Heterogeneous opacities are present in the right lung base. Heart and Mediastinum: Stable cardiomediastinal silhouette and great vessels. Bones and Soft Tissues: Stable regional skeleton and soft tissues. IMPRESSION 1. Findings are suggestive of bronchitis with right basilar pneumonia/aspiration. READING SITE: [facility] Performing Organization Address [facility] Ph one Number [place] * XR Outside images for PACS (02/09/2019 7:05 AM LIFE SKILLS TRAINER) Specimen Performing Organization Address [facility] Ph one Number [place] * XR Outside images for PACS Abdomen (02/09/2019 7:05 AM LIFE SKILLS TRAINER) Specimen Performing Organization Address [facility] Ph one Number [place] * Electrocardiogram (ECG) (02/08/2019 1:12 AM LIFE SKILLS TRAINER) QRSd 106 [facility] QT 448 TRACEMASTER QTC 444 TRACEMASTER ECGHR 59 [facility]ER ECGPR 192 [facility]ER Specimen Narrative Performed At [facility] Test Date: 2019-02-08 Pat Name: PAU MCCABE Department: 56 Room: 7410 Gender: Female Saxophone Player: [id number] : 1950 Requested By: JOSELINE MARRERO Order Number: [id number] Reading MD: Brent Agarwal Measurements Intervals [place] Rate: 59 P: 39 AL: 192 QRS: 16 QRSD: 106 T: 41 QT: 448 QTc: 444 Interpretive Statements SINUS RHYTHM Electronically Signed On 02-08-2019 10:2 9:19 LIFE SKILLS TRAINER by Brent Agarwal Procedure Note Interface, External Ris In - 02/08/2019 10:29 AM LIFE SKILLS TRAINER [facility] Test Date: 2019-02-08 Pat Name: PAU MCCABE Department: 56 Room: 7410 Gender: Female Saxophone Player: [id number] : [id number] Requested By: JOSELINE MARRERO Order Number: [id number] Reading MD: Brent Agarwal Measurements Intervals [place] Rate: 59 P: 39 AL: 192 QRS: 16 QRSD: 106 T: 41 QT: 448 QTc: 444 Interpretive Statements SINUS RHYTHM Electronically Signed On 02-08-2019 10:29:19 LIFE SKILLS TRAINER by Brent Agarwal Performing Organization Address City/State/Zipcode Ph one Number [facility] * CBC and Diff (manual diff if necessary) (02/08/2019 1:00 AM LIFE SKILLS TRAINER) WBC 6.60 4.00 - 11.00 TH/uL [facility] RBC 3.52 (L) 4.00 - 5.00 MIL/uL [facility] Hemoglobin 11.7 (L) 12.0 - 15.0 g/dL [facility] Hematocrit 34 (L) 36 - 45 % [facility] MCV 97 80 - 99 fL [facility] MCH 33 27 - 34 pg [facility] MCHC 34 32 - 36 % [facility] RDW 12.5 11.5 - 14.5 % [facility] Platelet Count 162 140 - 400 TH/uL [facility] MPV 11.1 9.4 - 12.3 fL [facility] Nucleated RBCs 0 0 - 0 /100 [facility] % Neutrophils 74 45 - 78 % [facility] %Lymphocytes 16 15 - 47 % [facility] %Monocytes 9 0 - 12 % [facility] %Eosinophils 2 0 - 7 % [facility] %Basophils 1 0 - 2 % [facility] % Imm Grans 0 0 - 1 % [facility] # Granulocytes 4.87 1.70 - 6.80 TH/uL [facility] # Lymphocytes 1.02 1.00 - 3.30 TH/uL [facility] # Monocytes 0.56 0.20 - 0.90 TH/uL [facility] # Eosinophils 0.11 0.00 - 0.40 TH/uL [facility] # Basophils 0.03 0.00 - 0.10 TH/uL [facility] Specimen Blood Performing Organization Address City/[facility]/Zipcode Ph one Number [address] [address] LABORATORIES [facility] [address] [place] [address] * Comprehensive Metabolic Panel (02/08/2019 1:00 AM LIFE SKILLS TRAINER) Sodium 141 133 - 147 MEQ/L [facility] Potassium 3.8 3.5 - 5.3 MEQ/L [facility] Chloride 110 96 - 112 MEQ/L [facility] Carbon Dioxide 24 20 - 32 MEQ/L [facility] Anion Gap 7 5 - 17 [facility] Calcium 8.9 8.4 - 10.5 mg/dL [facility] Glucose 93 70 - 100 mg/dL [facility] Protein Total 6.4 6.0 - 8.2 g/dL [facility] Serum [facility] Albumin 3.5 3.5 - 5.0 g/dL [facility] Alkaline 53 42 - 140 IU/L [facility] Alanine 18 0 - 34 IU/L [facility] e Aspartate 25 15 - 46 IU/L [facility] e Bilirubin Total 0.8 0.2 - 1.3 mg/dL [facility] Blood Urea 22 7 - 26 mg/dL [facility] Creatinine 0.9 0.4 - 1.1 mg/dL [facility] eGFR Female AA 74 60 - 200 [place] mL/min/1.73sq [facility] Lab eGFR Female 62 60 - 200 [facility] Non-AA mL/min/1.73sq m [facility] Lab Specimen Blood Performing Organization Address City/[facility]/Zipcode Ph one Number [address] [address] LABORATORIES [facility] [address] [place] [phone] documented in this encounter Visit Diagnoses Diagnosis Dysphagia, unspecified type Eosinophilic esophagitis Encounter for consultation Paroxysmal atrial fibrillation (HCC) Atrial fibrillation Esophageal dysphagia Dysphagia, pharyngoesophageal phase Esophageal stricture Stricture and stenosis of esophagus Depression Depressive disorder, not elsewhere clas sified Essential hypertension Unspecified essential hypertension JJ (obstructive sleep apnea) Obstructive sleep apnea (adult) (pediat vadim) Warfarin anticoagulation On dofetilide therapy Obesity (BMI 30.0-34.9) Alcohol consumption of more than four d rinks per week Aspiration pneumonia (HCC) Pneumonitis due to inhalation of food o r vomitus documented in this encounter Administered Medications Action Date Dose Rate Site Medication Order MAR Action 02/08/2019 1:24 PM [employer] 650 mg acetaminophen (TYLENOL) 650 mg/20.3 mL Given solution 325-650 mg 325-650 mg, Oral, Every 6 hours PRN, mild pain (pain score 1-3), Indications : fever, pain, Starting 02/08/19 at 1259, Do not exceed 4 GM/DAY of acetaminophen. If 65 or older do not exceed 3 GM/DAY. If chronic alcoholic d o not exceed 2 GM/DAY., 02/13/2019 8:35 AM [employer] TRAINER 3 mg budesonide (ENTOCORT EC) 24 hr capsule 3 Given mg 3 mg, Oral, Daily, Indications: infection, eosinophilic esophagitis, First dose on 02/08/19 at 0900, DO NOT CRUSH OR CHEW., 3 mg Given 02/11/2019 8:22 AM [employer] TRA[employer]ER 3 mg Given 02/08/2019 10:04 AM [employer] TRA[employer]ER 02/09/2019 8:18 AM [employer] TRA[employer]ER 25 mg carvedilol (COREG) tablet 25 mg Given 25 mg, Oral, 2 times daily, Indications : chronic heart failure, First dose on [place] 02/08/19 at 0045 25 mg Given 02/08/2019 8:12 PM [employer] TRA[employer]ER 25 mg Given 02/08/2019 10:03 AM [employer] TRA[employer]ER 02/13/2019 8:36 AM [employer] TRA[employer]ER 25 mg carvedilol (COREG) tablet 25 mg Given 25 mg, Oral, 2 times daily, First dose on 02/10/19 at 2100 25 mg Given 02/12/2019 9:17 PM [employer] TRA[employer]ER 25 mg Given 02/12/2019 4:17 PM [employer] TRA[employer]ER 02/13/2019 11:03 AM [employer] TRA[employer]ER 2 g 100 mL/hr cefTRIAXone (ROCEPHIN) 2 g in sodium New Bag chloride ADDV (NS) 50 mL IVPB 2 g, Intravenous, at 100 mL/hr, Daily, Indications: pneumonia, First dose on [place] 02/12/19 at 1000, For 7 doses 2 g 100 mL/hr New Bag 02/12/2019 11:22 AM [employer] TRA[employer]ER 02/13/2019 5:12 AM [employer] TRA[employer]ER 125 mcg dofetilide (TIKOSYN) capsule 125 mcg Given 125 mcg, Oral, Every 12 hours, Indications: cardioversion of atrial fibrillation, paroxysmal supraventricular tachycardia, First dos e on [place] 02/08/19 at 0045, DO NOT CRUSH OR CHEW., 125 mcg Given 02/12/2019 4:16 PM [employer] TRA[employer]ER 125 mcg Given 02/11/2019 8:35 PM [employer] TRA[employer]ER 02/11/2019 8:28 AM [employer] TRA[employer]ER 40 mg esomeprazole (NexIUM) capsule 40 mg Given 40 mg, Oral, Daily, Indications: gastroesophageal reflux disease, First dose on [place] 02/08/19 at 0900, Instructio n for ng/peg/tube administration of nexium: Empty intact granules from capsule into a medicine cup and add 20m l water. Pour into 60ml syringe and fill to 50ml, replace plunger. Shake vigorously for 15 seconds, granules janiya l not dissolve. Attach to ng tube, hold syringe vertically, and administer over 20 seconds. Rotate syringe in circular manner at least once during administration to assure all granules are suspended in water , 40 mg Given 02/08/2019 10:00 AM [employer] TRA[employer]ER 02/13/2019 8:35 AM [employer] TRA[employer]ER 40 mg esomeprazole (NexIUM) capsule 40 mg Given 40 mg, Oral, 2 times daily before meals , Indications: gastroesophageal reflux disease, First dose (after last modification) on Sat02/11/19 at 1700, Instruction for ng/peg/tube administration of nexium: Empty intact granules from capsule into a medicine cup and add 20ml water. Pour into 60ml syringe and fill to 50ml, replace plunger. Shake vigorously for 15 seconds, granules will not dissolve. Attach to ng tube, hold syringe vertically, and administer over 20 seconds. Rotate syringe in circular manner at least once during administration to assure all granules are suspended in water , 40 mg Given 02/12/2019 4:15 PM [employer]ER 40 mg Given 02/11/2019 5:16 PM [employer]ER 02/08/2019 10:03 AM [employer] TRA[employer]ER 40 mg furosemide (LASIX) tablet 40 mg Given 40 mg, Oral, Daily, Indications: edema, First dose on [place] 02/08/19 at 0900 hydrALAZINE (APRESOLINE) injection 10 m g 10 mg, Intravenous, Every 6 hours PRN, high blood pressure, for SBP > 170 or DBP > 100, Starting [place] 02/08/19 at 0055 02/10/2019 9:32 AM [employer] TRA[employer]ER 65 mL iohexol (OMNIPAQUE) 350 mg iodine/mL Given injection 1-500 mL 1-500 mL, Intravenous, Once in imaging, contrast, Starting [facility] 02/10/19 at 0932, For 1 dose 02/12/2019 4:19 PM [employer] TRA[employer]ER 15 mg ketorolac (TORADOL) injection 15 mg Given 15 mg, Intravenous, Every 6 hours PRN, moderate pain (pain score 4-6), severe pain (pain score 7-10), Starting [facility] 02/09/19 at 1404, For 5 days 15 mg Given 02/12/2019 12:43 PM [employer] TRA[employer]ER 15 mg Given 02/10/2019 8:12 AM [employer]ER 02/08/2019 2:35 AM [employer] TRA[employer]ER 0.5 mg LORazepam (ATIVAN) injection 0.5 mg Given 0.5 mg, Intravenous, Once, [place] 02/08/19 at 0115, For 1 dose, Maximum IV push rate of 2 mg/min; max IVP dose is 4 mg. , magnesium sulfate IVPB 2 gram (premix) 2 g, Intravenous, at 25 mL/hr, As needed, standard electroyte replacement , Starting [place] 02/08/19 at 0327, Replace i n addition to any scheduled magnesium doses. Administer 2 grams over 2 hours for magnesium level less than or equal to 1.4 mg/dL. Repeat magnesium level in AM. Administer only if serum creatinin e is less than 2 within the previous 48 hours and sustained urine output is greater than 20 mL/hr for 6 hours (if able to monitor)., 02/10/2019 7:18 PM [employer] TRA[employer]ER 5 mg metoprolol (LOPRESSOR) injection 5 mg Given 5 mg, Intravenous, Every 6 hours scheduled, Indications: ventricular rat e control in atrial fibrillation, hold fo r HR < 55, SBP less than 100 mmHg or restarting PO carvedilol, First dose (after last modification) on Sat 9 at 0000 5 mg Given 02/10/2019 12:59 PM [employer] TRA[employer]ER 5 mg Given 02/10/2019 6:29 AM [employer] TRA[employer]ER 02/13/2019 11:41 AM [employer] TRA[employer]ER 500 mg 200 mL/hr metroNIDAZOLE (FLAGYL) IVPB 500 mg New Bag 500 mg, Intravenous, Administer over 30 Minutes, Daily, Indications: ASPIRATION PNEUMONIA, First dose on [place] 02/12/19 at 1000, Bag 1 of 2 Avoid Alcohol in Food and Drinks, 500 mg 200 mL/hr New Bag 02/12/2019 11:25 AM [employer] TRA[employer]ER 02/13/2019 12:20 PM [employer] TRA[employer]ER 500 mg 200 mL/hr metroNIDAZOLE (FLAGYL) IVPB 500 mg New Bag 500 mg, Intravenous, Administer over 30 Minutes, Daily, Indications: ASPIRATION PNEUMONIA, First dose on [place] 02/12/19 at 1000, Bag 2 of 2 Avoid Alcohol in Food and Drinks, 500 mg 200 mL/hr New Bag 02/12/2019 12:05 PM [employer]ER 02/13/2019 8:36 AM [employer] TRA[employer]ER 10 mg PARoxetine (PAXIL) tablet 10 mg Given 10 mg, Oral, Daily, Indications: anxiet y with depression, First dose on 02/08/19 at 0900 10 mg Given 02/12/2019 4:16 PM [employer] TRA[employer]ER 10 mg Given 02/11/2019 8:24 AM [employer] TRA[employer]ER 02/12/2019 6:23 AM [employer] TRA[employer]ER 3.375 g 100 mL/hr piperacillin-tazobactam (ZOSYN) IVPB New Bag 3.375 g (premix) 3.375 g, Intravenous, at 100 mL/hr, Every 6 hours scheduled, Indications: ASPIRATION PNEUMONIA, First dose on 02/09/19 at 1400 3.375 g 100 mL/hr New Bag 02/11/2019 11:23 PM [employer] TRA[employer]ER 3.375 g 100 mL/hr New Bag 02/11/2019 5:19 PM [employer] TRA[employer]ER potassium bicarb-citric acid (EFFER-K) effervescent tablet 20 mEq 20 mEq, Oral, As needed, standard electrolyte replacement, Starting 02/08/19 at 0327, Administer if unable t o swallow potassium tablets. Replace in addition to any scheduled potassium doses. Administer 20 mEq every hour x 2 doses (total dose = 40 mEq) for potassium level 3.0 to 3.4 mg/dL. Repea t potassium level in AM. Administer 20 mE q every hour x 3 doses (total dose = 60 mEq) for potassium level less than or equal to 2.9. Repeat potassium level 4 hours after last oral dose administered . Administer only if serum creatinine is less than 2 within the previous 48 hour s and sustained urine output is greater than 20 mL/hr for 6 hours (if able to monitor). Completely dissolve tablet in 3 to 4 ounces (90-120 mL) of cold juice or water before administering. For flui d restricted patients, a smaller volume may be used to dilute (e.g. 15-30 mL)., potassium chloride (KLOR-CON) CR tablet 20 mEq 20 mEq, Oral, As needed, standard electrolyte replacement, Starting 02/08/19 at 0327, Replace in addition to any scheduled potassium doses. Administer 20 mEq every hour x 2 doses (total dose = 40 mEq) for potassium level 3.0 to 3.4 mg/dL. Repeat potassiu m level in AM. Administer 20 mEq every hour x 3 doses (total dose = 60 mEq) fo r potassium level less than or equal to 2.9. Repeat potassium level 4 hours after last oral dose administered. Administer only if serum creatinine is less than 2 within the previous 48 hour s and sustained urine output is greater than 20 mL/hr for 6 hours (if able to monitor). DO NOT CRUSH OR CHEW., potassium chloride 20 mEq in 100 mL IVP B 20 mEq, Intravenous, Administer over 2 Hours, As needed, standard electrolyte replacement, Starting 02/08/19 at 0327, Administer if unable to take oral potassium. Replace in addition to any scheduled potassium doses. Administer 20 mEq x 2 doses (total dose = 40 mEq) for potassium level 3.0 to 3.4 mg/dL. Repeat potassium level in AM. Administe r 20 mEq x 3 doses (total dose = 60 mEq) for potassium level less than or equal to 2.9. Repeat potassium level 2 hours after last infusion complete. Administer only if serum creatinine is less than 2 within the previous 48 hour s and sustained urine output is greater than 20 mL/hr for 6 hours (if able to monitor). Potassium chloride should be infused at a rate of 10 mEq/hr through a peripheral line, or at a rate of 20 mEq/hr through a central line., 02/08/2019 2:02 PM [employer] TRA[employer]ER 75 mL/hr 75 mL/hr sodium chloride 0.9% infusion New Bag 75 mL/hr, Intravenous, Continuous, Starting 02/08/19 at 0045, For 48 hours 75 mL/hr 75 mL/hr Restarted 02/08/2019 12:52 AM [employer] TRA[employer]ER 02/11/2019 11:02 AM [employer] TRA[employer]ER 75 mL/hr 75 mL/hr sodium chloride 0.9% infusion New Bag 75 mL/hr, Intravenous, Continuous, Starting [facility] 02/09/19 at 1400, For 48 hours 75 mL/hr 75 mL/hr New Bag 02/10/2019 6:43 PM [employer] TRA[employer]ER 75 mL/hr 75 mL/hr New Bag 02/10/2019 12:09 AM [employer] TRA[employer]ER 02/08/2019 5:29 AM [employer] TRA[employer]ER 1.5 mg warfarin (COUMADIN) split tablet 1.5 mg Given 1.5 mg, Oral, Once, [place] 02/08/19 at 0500 , For 1 dose documented in this encounter Additional Health Concerns Last Indicated Resolved Time Infection Onset Date 02/12/2019 02/12/2019 12:39 PM [employer] TRA[employer]ER C.Difficile - Rule Out 02/12/2019 documented as of this encounter
[2019-08-31 20:39] LABS: TSH (THYROID ANALYZER) 3.39 UIU/ML (0.35-4.94)
--- OUTSIDE RECORDS SUMMARY | 2019-08-31 20:39 | XMS REPORT | Encounter Summary ---
Author Author [facility] Organization [facility] Address Unknown Phone Unavailable Care Team Providers Care Information Clerk Cashier Name Role Phone Yulissa Zapata PCP Reason for Visit * Auth/Cert (Routine) Referred By Contact Referred To Contact Status Reason Specialty Diagnoses / Procedures Rosendo King MD [address] [facility] [place] [address] New Request Procedures Case request operating room: ESOPHAGOGASTRODUOD ENOSCOPY (EGD) Encounter Details Care Team Description [place] [address] [id number] ESOPHAGOGASTRODUODENOSCOPY, WITH BOTULIN UM TOXIN INJE[facility] [address] [place] [address] Social History Date Tobacco Use Types Packs/Day [...] Comments Vital Sign 109/64 02/13/2019 1:36 PM FOREST SCIENCE PROFESSOR Blood Pressure 63 02/13/2019 1:36 PM FOREST SCIENCE PROFESSOR Pulse 36.7 C (98 F) 02/13/2019 11:50 AM FOREST SCIENCE PROFESSOR Temperature 20 02/13/2019 11:50 AM FOREST SCIENCE PROFESSOR Respiratory Rate 95% 02/13/2019 11:50 AM FOREST SCIENCE PROFESSOR Oxygen Saturation - - Inhaled Oxygen Concentration 90.4 kg (199 lb 4.8 oz) 02/13/2019 4:11 AM FOREST SCIENCE PROFESSOR Weight 165.1 cm (5' 5") 02/07/2019 11:28 PM FOREST SCIENCE PROFESSOR Height 33.17 02/07/2019 11:28 PM FOREST SCIENCE PROFESSOR Body Mass Index documented in this encounter Discharge Summaries * Marcus Bush, DO - 02/13/2019 11:21 AM FOREST SCIENCE PROFESSOR [facility] YARD CLEANER Hospitalist Discharge Summary Patient Name: Pau Wren Age: 69 y.o. Sex: female Admit Date: [...] Delgado Reason for Hospital Admission: Ms. Pau Wren is a 69 y.o. female who prese [...] PCP was unable to re ach the [facility] GI clinic so she saw a [...] little water so she was transferred to [facility]. During EGD Attempt 02/09/2019, she appeared to aspirate secondary to retained flu id and food in her esophagus. Repeat EGD done 02/10/19 did not find evidence of retained food or stricture. GI suspects achalasia and recommends outpatient man ometry at [facility] as outpatient. She will be started on [...] signed by: Marcus Bush 02/13/2019 11:[address] SCIENCE PROFESSOR documented in this encounter Discharge Instructions * Appointments* Sharon Baxter RN - 02/11/2019 9:38 AM FOREST SCIENCE PROFESSOR If you need to reschedule your Cardiology appointment, please call our our community hospital department at [phone]. Thank you! ST SCIENCE PROFESSOR * Attachments The following attachments cannot be sent through Care Everywhere.* Piperacillin; Tazobactam injection (Bahraini) documented in this encounter Medications at Time [...] Waldo Chavarria MD - 02/13/2019 9:01 AM FOREST SCIENCE PROFESSOR GI Progress Note NAME: Pau Wren ADMISSION DATE: 02/07/2019 GI service was asked to see Pau Wren by Marcus Bush DO for anemia. SUBJECTIVE [...] % Intake/Output Summary (Last 24 hours) at 02/13/2019 09 Last data filed at 02/12/20192029 Gross per 24 hour Intake 600 ml [...] No results found for this or a ny previous visit. No results found for this [...] or edited the final report. READING SITE: [facility] Xr Chest Single View Frontal Result Date: 02/09/2019 1. Findings are suggestive of bronchitis with right basilar pneumonia/aspiration. READING SITE: [facility] ENDOSCOPY EGD 02/10/19 Corrugated mucosa and linear [...] four quadrants (total 4 cc). IMPRESSION Pau Wren is a 69 y.o. female hospital day 6, with Pau Wren is a 69 y.o. female PMH/o paroxysmal [...] had dilation at an outside hospital and [place], [place]. Endoscopy report reviewed and jair ent had empiric balloon dilation to 16.5 mm for suspected achalasia at the [facility]. She was also started on Cardizem that she did not tolerate due to hypo tension. EGD done on 02/10 showed no signs of strictures, poor peristalsis may be suggesti ve of achalasia. Due to persistent symptoms, EGD was repeated on 02/12 and Botox injection was don e above the GE junction. Counts include 234 beds at the [facility] was contacted and patient to be scheduled [...] patient may benefit from referral to Dr. El gutierrez at the [facility] to discuss poor oral endoscopic myotomy. * Marcus Bush, - 02/12/2019 12:02 PM FOREST SCIENCE PROFESSOR [facility] YARD CLEANER Hospitalist Progress Note Patient Name: Pau Wren Age: 69 y.o. Sex: female Admit Date: [...] Her PCP was unable to reach the [facility] GI clinic so she saw a different [...] little water so she was transferred to [facility]. During EGD Attempt 02/09/2019, she appeared to aspirate secondary to retained flu id and food in her esophagus. Repeat EGD done 02/10/19 did not find evidence of retained food or stricture. GI suspects achalasia and recommends outpatient man ometry at [facility] as outpatient. She will be started on [...] 02/12/2019 1202 Last data filed at 02/11/2019 2126 Gross per 24 hour Intake 580 ml Output Net 580 ml Body mass index is 33.5 kg/m. Marcus Bush, [facility] Hospitalist Program Please page through Voalte Messaging using template format. Electronically signed by Marcus Bush 02/12/2019 12:[address] SCIENCE PROFESSOR * Marcus Bush, - 02/11/2019 1:33 PM FOREST SCIENCE PROFESSOR [facility] YARD CLEANER Hospitalist Progress Note Patient Name: Pau Wren Age: 69 y.o. Sex: female Admit Date: [...] Her PCP was unable to reach the [facility] GI clinic so she saw a different [...] little water so she was transferred to [facility]. During EGD Attempt 02/09/2019, she appeared to aspirate secondary to retained flu id and food in her esophagus. Repeat EGD done 02/10/19 did not find evidence of retained food or stricture. GI suspects achalasia and recommends outpatient man ometry at [facility] as outpatient. She will be started on [...] index is 33.23 kg/m. Marcus Bush DO [facility] Hospitalist Program Please page through [employer] Messaging using template format. Electronically signed by Marcus Bush 02/11/2019 1:[address] SCIENCE PROFESSOR * Waldo Chavarria MD - 02/11/2019 1:16 PM FOREST SCIENCE PROFESSOR GI Progress Note NAME: Pau Wren ADMISSION DATE: 02/07/2019 GI service was asked to see Pau Wren by Marcus Bush DO for anemia. SUBJECTIVE [...] No results found for this or a ny previous visit. No results found for this [...] or edited the final report. READING SITE: [facility] Xr Chest Single View Frontal Result Date: 02/09/2019 1. Findings are suggestive of bronchitis with right basilar pneumonia/aspiration. READING SITE: [facility] ENDOSCOPY EGD 02/10/19 Corrugated mucosa and linear [...] hence the procedure was aborted. IMPRESSION Pau Wren is a 69 y.o. female hospital day 4, with Pau Wren is a 69 y.o. female PMH/o paroxysmal [...] had dilation at an outside hospital and [place], [place]. There was also reportedly esophage al [...] questions. Waldo Chavarria MD Gastroenterology Fellow N T Associated attestation - Chau Christy MD - 02/11/2019 1:50 PM SHAWN Givens I have seen and [...] diet and undergo esophageal motility study at Counts include 234 beds at the [facility] as an outpatient. If this is not feasible, repeat upper endoscopy with botulinu m toxin injection to lower esophageal sphincter region will be performed tomorro w in an effort to allow hospital discharge. * Kristina Conrad NP - 02/10/2019 4:07 PM FOREST SCIENCE PROFESSOR Attempt to see patient today x2 this afternoon. Out of room for EGD. Will plan t o see patient in AM. ST SCIENCE PROFESSOR * Marcus Bush, - 02/10/2019 3:22 PM FOREST SCIENCE PROFESSOR [facility] YARD CLEANER Hospitalist Progress Note Patient Name: Pau Wren Age: 69 y.o. Sex: female Admit Date: [...] Her PCP was unable to reach the [facility] GI clinic so she saw a different [...] little water so she was transferred to [facility]. During EGD Attempt 02/09/2019, she appeared [...] index is 33.23 kg/m. Marcus Bush DO [facility] Program Please page through [employer]al[employer] Messaging using template format. Electronically signed by Marcus Bush 02/10/2019 3:[address] SCIENCE PROFESSOR Katheryn Ayers - 02/10/2019 10:50 AM FOREST SCIENCE PROFESSOR Pau was sitting in bed visiting with her daughter Althea and [id number] Maryjane, the room was well lite when [...] Katheryn Aguilar, 02/10/2019 1:31 PM Pager Number: [phone] ST SCIENCE PROFESSOR Marcus Daniels DO - 02/09/2019 12:58 PM FOREST SCIENCE PROFESSOR [facility] YARD CLEANER Hospitalist Progress Note Patient Name: Pau Wren Age: 69 y.o. Sex: female Admit Date: [...] Her PCP was unable to reach the [facility] GI clinic so she saw a different [...] little water so she was transferred to [facility]. Assessment/Plan: * Esophageal dysphagia Concern for [...] index is 33.23 kg/m. Marcus Bush DO [facility] Hospitalist Program Please page through [employer] Messaging using template format. Electronically signed by Marcus Bush 02/09/2019 12:[address] SCIENCE PROFESSOR * Jenae Suarez PharmChhaya - 02/09/2019 9:58 AM FOREST SCIENCE PROFESSOR Pharmacist Warfarin Dosing Sign-Off Note Warfarin is no longer an active order. Pharmacy will sign-off on further dosing at this time. If warfarin therapy is to be resumed, an order for Pharmacy to Dos e Warfarin needs to be resubmitted to pharmacy services for further management. Jenae Suarez PharmD C Kwame Carbajal PharmChhaya - 02/08/2019 11:41 AM FOREST SCIENCE PROFESSOR Pharmacist Warfarin Dosing Progress Note Pau Wren is a 69 y.o. female receiving warfarin [...] be managed by kaylyn lagunas unless re-consulted. ST SCIENCE PROFESSOR * Lennox Taylor MD - 02/08/2019 6:43 AM FOREST SCIENCE PROFESSOR [facility] Hospitalist - Progress Note Patient Name: Pau Wren Account No: [id number] Date of : 1950 Date of Admission: [...] results (as indicated), current inpatient medications and data support specialist notes with pertainent findings noted within the assessment/plan. Assessment/Plan Ms. Pau Wren is a 69 y.o. female who was [...] found in ANNIE about 2 weeks ago See my orders for additional details regarding this patients treatment plan. Room: [address] [place] [address] Diet: CLD, NPO at midnight for possible [...] Infusions: sodium chloride 0.9 % 75 mL/hr (02/08/19 0052) PRN Meds: bisacodyl, docusate sodium, hydralazine, magnesium sulfate, polyethylene glycol, potassium chloride OR potassium bicarb-citric acid OR potassium chlorid e in water Dany Briceño MD [facility] Medicine Division Please page through physician paging. . I saw and examined the patient with Dr Dany Briceño MD. I agree with history , exam, assessment and plan as documented in resident's note. I have edited as a ppropriate to reflect my findings. EGD tomorrow and possibly discharge after that ST SCIENCE PROFESSOR * Paul Scott PharmD - 02/08/2019 3:19 AM FOREST SCIENCE PROFESSOR Pharmacist Warfarin Dosing Progress Note Pau Wren is a 69 y.o. female receiving warfarin [...] be managed by kaylyn lagunas unless re-consulted. ST SCIENCE PROFESSOR documented in this encounter H&P Notes * David Ma MD - 02/12/2019 1:09 PM FOREST SCIENCE PROFESSOR PRE ENDOSCOPIC PROCEDURE HISTORY AND PHYSICAL Procedure: [...] ESOPHAGOGASTRODUODENOSCOPY, USING BIOPSY; Surgeon: Randi Stewart; Location: [facility] GI; Service: Gastroenterology; Laterality: N/A; ESOPHAGOGASTRODUODENOSCOPY (EGD) N/A 02/09/2019 Procedure: ESOPHAGOGASTRODUODENOSCOPY (EGD); Surgeon: Brent Tao MD; Locati on: [facility] GI; Service: Gastroenterology; Laterality: N/A; ESOPHAGOGASTRODUODENOSCOPY (EGD) N/A 02/10/2019 Procedure: ESOPHAGOGASTRODUODENOSCOPY (EGD); Surgeon: Anthony Camilo MD; Location: 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 disease) snf current use of antiarrhythmic drug snf current use of anticoagulant therapy Mitral regurgitation [...] Anthony Parks MD - 02/10/2019 3:09 PM FOREST SCIENCE PROFESSOR PRE ENDOSCOPIC PROCEDURE HISTORY AND PHYSICAL Procedure: [...] ESOPHAGOGASTRODUODENOSCOPY, USING BIOPSY; Surgeon: Randi Stewart; Location: [facility]; Service: Gastroenterology; Laterality: N/A; ESOPHAGOGASTRODUODENOSCOPY (EGD) N/A 02/09/2019 Procedure: ESOPHAGOGASTRODUODENOSCOPY (EGD); Surgeon: Brent Tao MD; Locati on: 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 Mitral regurgitation [...] signed by Anthony Camilo 02/10/2019 3:[address] SCIENCE PROFESSOR * Brent Tao MD - 02/09/2019 10:08 AM FOREST SCIENCE PROFESSOR PRE ENDOSCOPIC PROCEDURE HISTORY AND PHYSICAL Procedure: [...] ESOPHAGOGASTRODUODENOSCOPY, USING BIOPSY; Surgeon: Randi Stewart; Location: [facility]; Service: Gastroenterology; Laterality: N/A; FOOT SURGERY [...] "stuck" Essential hypertension GERD (gastroesophageal reflux disease) snf current use of antiarrhythmic drug snf current use of anticoagulant therapy Mitral regurgitation Mixed hyperlipidemia JJ (obstructive sleep apnea) Paroxysmal atrial fibrillation (HCC) Pneumonia 2018 Pulmonary hypertension (HCC) Nikogles 1979 Tricuspid regurgitation Urinary tract infection Social [...] pillars and uvula hidden by base of davidu daria Per anesthesia Anesthesia/Sedation: Per anesthesia/Conscious sedation Preprocedure [...] signed by Brent Tao 02/09/2019 10:[address] SCIENCE PROFESSOR * Joseline Marrero MD - 02/07/2019 11:45 PM FOREST SCIENCE PROFESSOR [facility] Physical Patient Name: Pau Wren Account No: [id number] Date of : 1950 Date of Admission: 02/07/2019 11:25 PM Primary Care Physician: Yulissa Zapata MD; Subjective Chief Complaint: dysphagia History of Present illness: Ms. Pau Wren is a 69 y.o. female with h/o [...] Her PCP was unable to reach the [facility] GI clinic so she saw a [...] little water so she was transferred to [facility] from [facility] for further assessment. She denies ENRIQUEZ, CP, SOA, n/v/d/c, abd pain, fever, chills and urinary symptoms. ROS A 10-point review of systems was completed and was negative except as noted abov e. Past Medical History: Diagnosis Date Atrial fibrillation with RVR (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 Assessment/Plan Ms. Pau Wren is a 69 y.o. female who was [...] treatment as noted above. Joseline Marrero MD [facility] Medicine Division Please page through physician paging. . ST SCIENCE PROFESSOR documented in this encounter Consult Notes * Chelsea Delgado MD - 02/09/2019 2:33 PM FOREST SCIENCE PROFESSOR Associated Order(s): IP CONSULT TO CARDIOLOGY [facility] Cardiology Consult Date: 02/09/2019 Established [facility] patient: Yes: Provider: Willow Last [...] NSR. Patient anticoagulated with warfarin managed by [facility]. She met with Dr Daugherty [...] "stuck" Essential hypertension GERD (gastroesophageal reflux disease) snf current use of antiarrhythmic drug snf current use of anticoagulant therapy Mitral regurgitation [...] ESOPHAGOGASTRODUODENOSCOPY, USING BIOPSY; Surgeon: Randi Stewart; Location: [facility] GI; Service: Gastroenterology; Laterality: N/A; ESOPHAGOGASTRODUODENOSCOPY (EGD) N/A 02/09/2019 Procedure: ESOPHAGOGASTRODUODENOSCOPY (EGD); Surgeon: Brent Tao MD; Locati on: [facility] GI; Service: Gastroenterology; Laterality: N/A; FOOT [...] Negative for activity change and appetite ch abebe. HENT: Positive for trouble swallowing. Respiratory: Positive [...] bronchitis with right basilar pneumonia/aspiration. READING SITE: [facility] EKG: Normal Sinus Rhythm at 59 bpm bpm Telemetry: Normal Sinus Rhythm Most Recent Result within the last 7 days Lab Units 02/08/19 1214 02/08/19 010 WBC TH/uL -- 6.60 HEMOGLOBIN g/dL -- 11.7* HEMATOCRIT % -- 34* PLATELET COUNT TH/uL -- 162 INR 1.7* 1.7* Recent Labs 02/08/19 010 NA 141 CL 110 CO2 24 BUN 22 CREAT 0.9 Most Recent Result within the last 7 days Lab Units 02/08/19 010 POTASSIUM MEQ/L 3.8 Most Recent Result within the last 7 days Lab Units 02/08/19 010 GLUCOSE mg/dL 93 Most Recent Result within [...] Family Another healthcare provider Patient's daughter present ST SCIENCE PROFESSOR * Jenna Borges MD - 02/08/2019 12:22 PM FOREST SCIENCE PROFESSOR Associated Order(s): IP CONSULT TO GASTROENTEROLOGY [facility] GI Inpatient New Consult Note Name: Pau Wren Date:02/08/2019 Hospital Day: 1 Referring Provider: Physician Hospitalist PCP: Randi Verdin Reason for Consult: Dysphagia History of Present Illness: Pau Wren is a 69 y.o. female PMH/o paroxysmal atrial fibrillation on warf nancy, obstructive sleep apnea, esophageal stricture who [...] had dilation at an outside hospital and [place], [place]. 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 taking warfarin 2.5 mg every Mon, Wed, Fri: 1.5 mg a ll other days: retest [...] past endoscopies, labs, imaging, microbiology were reviewed. Notab le results discussed above. Assessment: Pau Wren is a 69 y.o. female PMH/o paroxysmal atrial fibrillation on warf nancy, obstructive sleep apnea, esophageal stricture who presents complaining of worsening dysphagia to solids and liquids. She underwent an EGD on January 01 which showed a small hiatal hernia and did reveal eosinophilic esophagitis. She reports she underwent an EGD this past week on Saturday and had dilation at an outside hospital and [place], [place]. There was also reportedly esophage al [...] this past week from outside hospital at [facility] in [place], [place] -NPO at midnight -Hold warfarin, if [...] Fellow Disclaimer: This note was dictated using [employer] software and while checked, it m ay have unintentional errors. ATTENDING ADDENDUM I saw and examined the patient with the fellow and agree with the note as below. She has a history of EoE diagnosed by Dr. Balderas. She has recurrence of dyspha sil. No concern for food bolus impaction. Will plan for EGD tomorrow. Jenna Borges MD ST SCIENCE PROFESSOR documented in this encounter Nursing Notes * Lissette Fairbanks RN - 02/12/2019 3:59 PM FOREST SCIENCE PROFESSOR Returned from GI procedure. HR a-fib VR 130 Inc of stool. Extensive clean up in bed on monitor. Cardiac medications given, with pt sitting side of bed. T * Lissette Fairbanks RN - 02/12/2019 10:33 AM FOREST SCIENCE PROFESSOR GI MD at bedside. T * Chelsea Miller, ZULLY - 02/09/2019 12:03 PM FOREST SCIENCE PROFESSOR Stabilized, egd stopped after noted food/fluid in esophagus ST SCIENCE PROFESSOR * Kayley Herrera RN - 02/08/2019 9:00 AM FOREST SCIENCE PROFESSOR With AM vitals, O2 noted to be 74%. Patient has gel nailpolish on fingernails & toenails. Difficulty getting accurate read on earlobe. Patient reporting mild S OA but carrying on conversation & appeared to be in no distress. Applied 2 L NC & O2 reading 96%. Updated med-teaching resident of this during morning rounding. Patient resting comfortably, reporting no further SOA. ST SCIENCE PROFESSOR documented in this encounter Miscellaneous Notes * Nursing Discharge - Zohaib Helton RN - 02/13/2019 2:10 PM FOREST SCIENCE PROFESSOR Nursing Discharge Note Patient is stable for discharge. Reviewed discharge instructions and patient ve rbalized understanding, had no further questions, and left the unit in wheel galo ir with staff. Patient traveling home with in personal Vehicle. Patient/family satisfied with progress made towards goals and ready for discharg e. ST SCIENCE PROFESSOR * Care Progression Final DC Note - Dayami Bennett RN - 02/13/2019 11:49 AM FOREST SCIENCE PROFESSOR Final Discharge Note Final Discharge Disposition: 01-Home Self Care Discharge goal and plan is mutually agreed upon by patient Patient will discharge to: home, self care Transportation: pts family Discharge Time: appr 12-1300 Special Instructions: none ST SCIENCE PROFESSOR * End of Shift Note - Rula Ball RN - 02/13/2019 6:02 AM FOREST SCIENCE PROFESSOR End of Shift Summary and Plan of [...] EGD 02/08/19, mo nitor tolerance of CLD. ST SCIENCE PROFESSOR * End of Shift Note - Lissette Fairbanks RN - 02/12/2019 5:22 PM FOREST SCIENCE PROFESSOR End of Shift Summary and Plan of [...] EGD 02/08/19, mo nitor tolerance of CLD. T * Operative Note - Chau Christy MD - 02/12/2019 2:02 PM FOREST SCIENCE PROFESSOR EGD Report Date: 02/12/2019 2:02 PM Patient Name: PAU PANG (age): 1950 (69) Gender: Female Endoscopist(s): MD David Landrum MD Instrument(s): Scope # 9 - EG - 600WR - Regular - Fujinon([id number]) Anesthesia Provider: Rick Sutherland MD Nurse(s): Neil Brooks RN Staff: MARIN Link ASA Information: See Anesthesia Record Administered Medications: See Anesthesia Record History of Present Illness: PAU WREN is being seen today for an EGD. [...] being detected during the procedure. The patient/patients pharmacy services representative appeared to understand the procedure, the potential complications, and alternatives; had the opportunity to ask questions; and informed consent was obtained. The risk/benefit ratio was deemed appropriate to proceed with the procedure. General Anesthesia was administered by nurse business travel consultant. Continuous pulse oximetry and blood pressure monitoring [...] Shift Note - Rula Ball RN - 02/12/2019 5:39 AM FOREST SCIENCE PROFESSOR End of Shift Summary and Plan of [...] EGD 02/08/19, mo nitor tolerance of CLD. ST SCIENCE PROFESSOR * End of Shift Note - Aislinn Zhong RN - 02/11/2019 5:05 PM FOREST SCIENCE PROFESSOR End of Shift Summary and Plan of [...] EGD 02/08/19, mo nitor tolerance of CLD. ST SCIENCE PROFESSOR * Assessment & Plan Note - Marcus Bush DO - 02/11/2019 1:28 PM FOREST SCIENCE PROFESSOR Associated Problem(s): Aspiration pneumonia (HCC) Secondary to retained esophogeal food: -completed 3/4 days of zosyn, now has diarrhea -change to rocephin / flagyl to see if less affect on gut -repeat procalcitonin trending down ST SCIENCE PROFESSOR * Sign-Off Note - Kristina Conrad NP - 02/11/2019 9:18 AM FOREST SCIENCE PROFESSOR [facility] Sign-Off Note Name: Pau Wren CPI: [id number] Date of : 1950 Primary care physician: [...] four drinks per week Hospital course/plans: Pau Wren is a 69 y.o. female who is currently admitted to [facility] under the Hospitalist service. We were consulted [...] has not required diuresis this admission. 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 ST SCIENCE PROFESSOR * Provider Clarification Response - Marcus Bush DO - 02/11/2019 8:01 AM FOREST SCIENCE PROFESSOR [facility] Query Respons e Note PATIENT: PAU WREN : 1950 ADMIT DATE: 02/07/2019 11:25 PM DISCH DATE: RESPONDING PROVIDER #: [id number] RESPONSE TEXT: The patient has aspiration pneumonia. [...] by: MARCUS VAUGHAN DO 02/11/2019 8:[address] SCIENCE PROFESSOR * End of Shift Note - Tomasa Foreman, ZULLY - 02/11/2019 6:44 AM FOREST SCIENCE PROFESSOR End of Shift Summary and Plan of [...] EGD 02/08/19, mo nitor tolerance of CLD. ST SCIENCE PROFESSOR * End of Shift Note - Kayley Herrera RN - 02/10/2019 7:49 PM FOREST SCIENCE PROFESSOR End of Shift Summary and Plan of [...] EGD 02/08/19, mo nitor tolerance of CLD. ST SCIENCE PROFESSOR * Nutrition Note - Lilliam Lai RD - 02/10/2019 11:50 AM FOREST SCIENCE PROFESSOR Nutrition Assessment [facility] DIAGNOSIS & INTERVENTION: DIAGNOSIS 1 Nutrition Diagnosis [...] FOR CONSULT: Pos nutrition screen Patient: Pau Wren Age: 69 y.o. : 1950 PRIMARY CARE [...] Usual Body Weight: 96.2 kg (212 lb) [place] Body Weight: 56.7 kg (125 lb) % [place] Body Weight: 159 % % Weight Loss [...] Estimated Energy Needs Total Energy Estimated Needs: 0584-3695 kcal/day Method for Estimating Needs: MSJ 1.2-1.4 Estimated Protein Needs Total Protein Estimated Needs: 57-68 gm/day Method for Estimating Needs: 1.0-1.2 gm/day Fluid Needs Total Fluid Estimated Needs: per MD MONITORING/EVALUATION: 1. Food & Nutrition Related Hx: Energy Intake 2. Anthropometrics: Weight change 3. Biochemical: Nutrition related labs 4. Nutrition-focused physical findings: GI function, skin Electronically signed by Lilliam Lai 02/10/2019 11:[address] SCIENCE PROFESSOR * Operative Note - Anthony Camilo MD - 02/10/2019 9:00 AM FOREST SCIENCE PROFESSOR EGD Report Date: 02/10/2019 9:00 AM Patient Name: PAU PANG (age): 1950 (69) Gender: Female Endoscopist(s): Anthony Camilo MD Instrument(s): Scope # 3 - EG - 600WR - Regular - Fujinon([id number]) Anesthesia Provider: Lorie Yadav MD Nurse(s): Lorena Moran RN Staff: Per Johnston CRNA ASA Information: See Anesthesia Record Administered Medications: See Anesthesia Record History of Present Illness: PAU WREN is being seen today for an EGD. Indications: Dysphagia - R13.10 Procedure: Prior to the procedure the risk(s), benefit(s), and alternative(s) were reviewed and discussed. The most common complications being, but not limited to; abdominal discomfort, bleeding, perforation, infection, adverse medication reaction, pain or inflammation at the IV site, and lesions not being detected during the procedure. The patient/patients pharmacy services representative appeared to understand the procedure, the [...] 02/10/2019 4:02:20 PM by Anthony Camilo MD ST SCIENCE PROFESSOR * End of Shift Note - Julio C Pineda RN - 02/10/2019 7:37 AM FOREST SCIENCE PROFESSOR End of Shift Summary and Plan of [...] EGD 02/08/19, mo nitor tolerance of CLD. ST SCIENCE PROFESSOR * Care Progression Initial Assessment - Dayami Bennett RN - 02/09/2019 1:27 PM FOREST SCIENCE PROFESSOR Care Progression Initial Assessment Note Admit for [...] system has been Support System: Spouse/significant other, [facility] Patient has verbalized the following concerns at [...] care physician is Yulissa Zapata MD and receiv es their medications from [facility] #[id number] [place], [place] - [address] [facility] [address] [facility] [address] [facility] [address] [facility]. [facility] [address] [facility] [address] DAYAMI BENNETT RN EBD SPECIAL EDUCATION TEACHER [phone] ST SCIENCE PROFESSOR * End of Shift Note - Kayley Herrera RN - 02/09/2019 12:38 PM FOREST SCIENCE PROFESSOR End of Shift Summary and Plan of [...] EGD 02/08/19, mo nitor tolerance of CLD. ST SCIENCE PROFESSOR * Operative Note - Brent Tao MD - 02/09/2019 9:30 AM FOREST SCIENCE PROFESSOR EGD Report Date: 02/09/2019 9:30 AM Patient Name: PAU PANG (age): 1950 (69) Gender: Female Endoscopist(s): MD David Alonso MD Instrument(s): Scope # 6 - EG - 600WR - Regular - Fujinon([id number]) Anesthesia Provider: Dayton Hopkins MD Nurse(s): Chelsea Miller, rn transport: MARIN Espinosa ASA Class: P3 - 02/09/2019 12:03 PM Brent Tao MD ASA Information: See Anesthesia Record Administered Medications: See Anesthesia Record History of Present Illness: PAU WREN is being seen today for an EGD. [...] being detected during the procedure. The patient/patients pharmacy services representative appeared to understand the procedure, the [...] 12:04:07 PM by MD David Alonso MD ST SCIENCE PROFESSOR * End of Shift Note - Jono Negron RN - 02/09/2019 5:31 AM FOREST SCIENCE PROFESSOR End of Shift Summary and Plan of [...] EGD 02/08/19, mo nitor tolerance of CLD. ST SCIENCE PROFESSOR * End of Shift Note - Kayley Herrera RN - 02/08/2019 5:18 PM FOREST SCIENCE PROFESSOR End of Shift Summary and Plan of [...] tomorrow. Faxed request for medical records to [facility] [place], [place]. NSR on telemetry. Continuing to monitor. [...] EGD 02/08/19, mo nitor tolerance of CLD. ST SCIENCE PROFESSOR * End of Shift Note - Jono Negron RN - 02/08/2019 4:47 AM FOREST SCIENCE PROFESSOR End of Shift Summary and Plan of [...] Stay Nursing goal for hospital stay: Plan: ST SCIENCE PROFESSOR * Assessment & Plan Note - Marcus Bush DO - 02/08/2019 12:56 AM FOREST SCIENCE PROFESSOR Associated Problem(s): Paroxysmal atrial fibrillation (HCC) Currently in sinus rhythm: -continue dofetilide as PO allows -continue to hold warfarin as needs repeat EGD today ST SCIENCE PROFESSOR * Assessment & Plan Note - Marcus Bush DO - 02/08/2019 12:56 AM FOREST SCIENCE PROFESSOR Associated Problem(s): Essential hypertension Continue coreg ST SCIENCE PROFESSOR * Assessment & Plan Note - Marcus Bush DO - 02/08/2019 12:55 AM FOREST SCIENCE PROFESSOR Associated Problem(s): Depression Continue Paxil ST SCIENCE PROFESSOR * Assessment & Plan Note - Marcus Bush DO - 02/08/2019 12:54 AM FOREST SCIENCE PROFESSOR Associated Problem(s): Esophageal dysphagia Concern for esophageal stricture s/p dilatation at outside hospital: -history of eosinophilic esophagitis -failed EGD attempt with possible aspiration 02/09 -repeat EGD 02/10/19 without stricture, clinical concern for achalasia -failed trial of clear liquid diet -plan Botox today as did not tolerate PO ST SCIENCE PROFESSOR * Hospital Course - Marcus Bush DO - 02/08/2019 12:45 AM FOREST SCIENCE PROFESSOR 69 y.o. female with h/o Afib on [...] Her PCP was unable to reach the [facility] GI clinic so she saw a [...] little water so she was transferred to [facility]. During EGD Attempt 02/09/2019, she appeared to aspirate secondary to retained flu id and food in her esophagus. Repeat EGD done 02/10/19 did not find evidence of retained food or stricture. GI suspects achalasia and recommends outpatient man ometry at [facility] as outpatient. She will be started on clear liquid diet and initially tolerated but then could not keep down even pills. She continues to bring up frothy substance. ST SCIENCE PROFESSOR documented in this encounter Plan of Treatment Not on filedocumented as of this encounter Procedures Comments Procedure Name Priority Date/Time Associated Diag nosis ESOPHAGOGASTRODUODENOSCOP 02/12/2019 Achalasia Y, WITH BOTULINUM TOXIN 2:42 PM FOREST SCIENCE PROFESSOR INJECTION Special Needs Dysphagia. Plan for Botox injection for suspected achalasia. Consider intubation due to previous aspiration . CLOSTRIDIUM DIFFICILE STAT 02/12/2019 TOXIN BY PCR 10:45 AM FOREST SCIENCE PROFESSOR PROTHROMBIN TIME/INR Routine 02/12/2019 1:25 AM FOREST SCIENCE PROFESSOR PROCALCITONIN Routine 02/12/2019 1:25 AM FOREST SCIENCE PROFESSOR COMPLETE BLOOD COUNT Routine 02/12/2019 1:25 AM FOREST SCIENCE PROFESSOR B12/FOLATE Add-On 02/10/2019 10:00 AM FOREST SCIENCE PROFESSOR RENAL PANEL Routine 02/10/2019 9:59 AM FOREST SCIENCE PROFESSOR PROTHROMBIN TIME/INR STAT 02/10/2019 9:[address] CHEST W CONTRAST Routine 02/10/2019 9:29 AM FOREST SCIENCE PROFESSOR PROCALCITONIN Routine 02/10/2019 2:45 AM FOREST SCIENCE PROFESSOR COMPLETE BLOOD COUNT Routine 02/10/2019 2:45 AM FOREST SCIENCE PROFESSOR XR CHEST SINGLE VIEW Routine 02/09/2019 FRONTAL 12:26 PM FOREST SCIENCE PROFESSOR XR OUTSIDE IMAGES FOR Routine 02/09/2019 Encounte r for PACS 7:05 AM FOREST SCIENCE PROFESSOR consultation XR ABDOMEN OUTSIDE IMAGES Routine 02/09/2019 [place] unter for FOR PACS 7:05 AM FOREST SCIENCE PROFESSOR consultation PROTHROMBIN TIME/INR Routine 02/08/2019 12:14 PM FOREST SCIENCE PROFESSOR ECG Routine 02/08/2019 1:12 AM FOREST SCIENCE PROFESSOR PROTHROMBIN TIME/INR Routine 02/08/2019 1:00 AM FOREST SCIENCE PROFESSOR COMPREHENSIVE METABOLIC Routine 02/08/2019 PANEL 1:00 AM FOREST SCIENCE PROFESSOR CBC AND DIFF (MANUAL DIFF Routine 02/08/2019 IF NECESSARY) 1:00 AM FOREST SCIENCE PROFESSOR documented in this encounter Results * Clostridium Difficile Toxin by PCR (02/12/2019 10:45 AM FOREST SCIENCE PROFESSOR) C difficile Not DetectedComment: NEGATIVE Not Detected [facility] for C. difficile toxin by PCR Hospita l Lab Specimen Stool Performing Organization Address City/State/Zipcode Ph one Number [address] [address] LABORATORIES [facility] [address] [place] [address] * Prothrombin Time/INR (02/12/2019 1:25 AM FOREST SCIENCE PROFESSOR) Only the most recent of 4 results within the time period is included. Protime 17.6 (H) 11.4 - 15.0 sec [facility] INR 1.5 (H) 0.8 - 1.2 [facility] Specimen Blood Performing Organization Address City/[facility] Ph one Number [address] [address] LABORATORIES [facility] [address] [place] [address] * Complete Blood Count (02/12/2019 1:25 AM FOREST SCIENCE PROFESSOR) Only the most recent of 2 results within the time period is included. WBC 6.08 4.00 - 11.00 TH/uL [facility] RBC 3.27 (L) 4.00 - 5.00 MIL/uL [facility] Hemoglobin 10.7 (L) 12.0 - 15.0 g/dL [facility] Hematocrit 31 (L) 36 - 45 % [facility] MCV 95 80 - 99 fL [facility] MCH 33 27 - 34 pg [facility] MCHC 35 32 - 36 % [facility] RDW 11.9 11.5 - 14.5 % [facility] Platelet Count 225 140 - 400 TH/uL [facility] MPV 10.4 9.4 - 12.3 fL [facility] Nucleated RBCs 0 0 - 0 /100 [facility] Specimen Blood Performing Organization Address City/[facility] Ph one Number [address] [address] LABORATORIES [facility] [address] [place] [address] * Procalcitonin (02/12/2019 1:25 AM FOREST SCIENCE PROFESSOR) Only the most recent of 2 results within the time period is included. Procalcitonin 0.51 (H) 0.00 - 0.10 ng/mL [facility] Comment: Hospital Lab PCT Value Interpretation [...] procalcitonin levels. Specimen Blood Performing Organization Address [facility] Ph one Number [address] [address] LABORATORIES [facility] [address] [place] [address] * B12/Folate (02/10/2019 10:00 AM FOREST SCIENCE PROFESSOR) VITAMIN B12 306 239 - 931 pg/mL [facility] Folate 9.2 3.4 - 20.0 ng/mL [facility] Specimen Blood Performing Organization Address [facility] Ph one Number [address] [address] LABORATORIES [facility] [address] [place] [address] * Renal Panel (02/10/2019 9:59 AM FOREST SCIENCE PROFESSOR) Sodium 138 133 - 147 MEQ/L [facility] Potassium 3.6 3.5 - 5.3 MEQ/L [facility] Chloride 106 96 - 112 MEQ/L [facility] Carbon Dioxide 22 20 - 32 MEQ/L [facility] Anion Gap 10 5 - 17 [facility] Calcium 8.2 (L) 8.4 - 10.5 mg/dL [facility] Glucose 73 70 - 100 mg/dL [facility] Albumin 3.1 (L) 3.5 - 5.0 g/dL [facility] Blood Urea 17 7 - 26 mg/dL [facility] Creatinine 0.8 0.4 - 1.1 mg/dL [facility] eGFR Female AA 85 60 - 200 [facility] mL/min/1.73sq m [facility] Lab eGFR Female 71 60 - 200 [facility] Non-AA mL/min/1.73sq m Hospital Lab Phosphorus 3.7 2.5 - 4.5 mg/dL [facility] Specimen Blood Performing Organization Address City/State/Zipcode Ph one Number [facility] [address] [place] [address] LABORATORIES [facility] [address] [place] [address] * CT Chest w contrast (02/10/2019 9:29 AM FOREST SCIENCE PROFESSOR) Specimen Impressions Performed At 1. Thickening of [...] or edited the final report. READING SITE: [facility] Narrative Performed At Patient: PAU WREN Sex#: F #: [id number] Natacha #: [id number] [facility] Accession# : [id number] Procedure Requested: [id number] CT CHEST W CONTRAST Reason for Exam: [...] Rad Results In - 02/10/2019 12:58 PM FOREST SCIENCE PROFESSOR Patient: PAU WREN Sex#: F #: 1950 Natacha#: [id number] [facility] Procedure Requested: [id number] CT CHEST W CONTRAST Reason for Exam: Rule out external compression, dysphagia Exam Ordered: 02/09/2019 1559 Exam Date/Time: 02/10/2019 0929 Begin exam date/time: 02/10/[address] CHEST W CONTRAST INDICATION: Rule out [...] or edited the final report. READING SITE: [facility] Performing Organization Address City/State/Zipcode Ph one Doc [facility] * XR Chest single view frontal (02/09/2019 12:26 PM FOREST SCIENCE PROFESSOR) Specimen Impressions Performed At 1. Findings are suggestive of bronchitis with right b asilar REAGANKESSON pneumonia/aspiration. READING SITE: [facility] Narrative Performed At Patient: PAU RWEN Sex#: F #: [id number] Natacha #: [id number] Location: [facility] E7E 7410-01 Accession# : [id number] Procedure Requested: [id number] XR CHEST SINGLE VIEW FRONTAL Reason for [...] Rad Results In - 02/09/2019 12:35 PM FOREST SCIENCE PROFESSOR Patient: PAU WREN Sex#: F #: 1950 Natacha#: [id number] Location: [address] [address] Procedure Requested: [id number] XR CHEST SINGLE VIEW FRONTAL Reason for [...] bronchitis with right basilar pneumonia/aspiration. READING SITE: [facility] Performing Organization Address [facility] one Number [facility] * XR Outside images for PACS (02/09/2019 7:05 AM FOREST SCIENCE PROFESSOR) Specimen Performing Organization Address [facility] one Number [facility] * XR Outside images for PACS Abdomen (02/09/2019 7:05 AM FOREST SCIENCE PROFESSOR) Specimen Performing Organization Address [facility] one Number [facility] * Electrocardiogram (ECG) (02/08/2019 1:12 AM FOREST SCIENCE PROFESSOR) QRSd 106 TRACEMASTER QT 448 TRACEMASTER QTC 444 TRACEMASTER ECGHR 59 TRACEMASTER ECGPR 192 TRACEMASTER Specimen Narrative Performed At [facility] Test Date: 2019-02-08 Pat Name: PAU WREN Department: 56 Room: 7410 Gender: Female Sports Editor: [id number] : 1950 Requested By: JOSELINE MARRERO Order Number: [id number] Reading MD: Brent Agarwal Measurements Intervals [place] Rate: 59 P: 39 MD: 192 QRS: 16 QRSD: 106 T: 41 QT: 448 QTc: 444 Interpretive Statements SINUS RHYTHM Electronically Signed On 02-08-2019 10:2 9:19 FOREST SCIENCE PROFESSOR by Brent Agarwal Procedure Note Interface, External Ris In - 02/08/2019 10:29 AM FOREST SCIENCE PROFESSOR [facility] Test Date: 2019-02-08 Pat Name: PAU WREN Department: 56 Room: 7410 Gender: Female Sports Editor: [id number] : 1950 Requested By: JOSELINE MARRERO Order Number: [id number] Reading MD: Brent Agarwal Measurements Intervals [place] Rate: 59 P: 39 MD: 192 QRS: 16 QRSD: 106 T: 41 QT: 448 QTc: 444 Interpretive Statements SINUS RHYTHM Electronically Signed On 02-08-2019 10:29:19 FOREST SCIENCE PROFESSOR by Brent Agarwal Performing Organization Address City/State/Zipcode Ph one Number TRACEMASTER * CBC and Diff (manual diff if necessary) (02/08/2019 1:00 AM FOREST SCIENCE PROFESSOR) WBC 6.60 4.00 - 11.00 TH/uL [facility] RBC 3.52 (L) 4.00 - 5.00 MIL/uL [facility] Hemoglobin 11.7 (L) 12.0 - 15.0 g/dL [facility] Hematocrit 34 (L) 36 - 45 % [facility] MCV 97 80 - 99 fL [facility] MCH 33 27 - 34 pg [facility] MCHC 34 32 - 36 % [facility] RDW 12.5 11.5 - 14.5 % [facility] Platelet Count 162 140 - 400 TH/uL [facility] MPV 11.1 9.4 - 12.3 fL [facility] Nucleated RBCs 0 0 - 0 /100 [facility] % Neutrophils 74 45 - 78 % [facility] %Lymphocytes 16 15 - 47 % [facility] %Monocytes 9 0 - 12 % [facility] %Eosinophils 2 0 - 7 % [facility] %Basophils 1 0 - 2 % [facility] % Imm Grans 0 0 - 1 % [facility] # Granulocytes 4.87 1.70 - 6.80 TH/uL [facility] # Lymphocytes 1.02 1.00 - 3.30 TH/uL [facility] # Monocytes 0.56 0.20 - 0.90 TH/uL [facility] # Eosinophils 0.11 0.00 - 0.40 TH/uL [facility] # Basophils 0.03 0.00 - 0.10 TH/uL [facility] Specimen Blood Performing Organization Address City/State/Zipcode Ph one Number [address] [address] LABORATORIES [facility] [address] [place] [address] * Comprehensive Metabolic Panel (02/08/2019 1:00 AM FOREST SCIENCE PROFESSOR) Sodium 141 133 - 147 MEQ/L [facility] Potassium 3.8 3.5 - 5.3 MEQ/L [facility] Chloride 110 96 - 112 MEQ/L [facility] Carbon Dioxide 24 20 - 32 MEQ/L [facility] Anion Gap 7 5 - 17 [facility] Calcium 8.9 8.4 - 10.5 mg/dL [facility] Glucose 93 70 - 100 mg/dL [facility] Protein Total 6.4 6.0 - 8.2 g/dL [facility] Serum [facility] Lab Albumin 3.5 3.5 - 5.0 g/dL [facility] Alkaline 53 42 - 140 IU/L [facility] Alanine 18 0 - 34 IU/L [facility] Lab e Aspartate 25 15 - 46 IU/L [facility] Lab e Bilirubin Total 0.8 0.2 - 1.3 mg/dL [facility] Blood Urea 22 7 - 26 mg/dL [facility] Lab Creatinine 0.9 0.4 - 1.1 mg/dL [facility] eGFR Female AA 74 60 - 200 [facility] mL/min/1.73sq m Hospital Lab eGFR Female 62 60 - 200 [facility] Non-AA mL/min/1.73sq m [facility] Lab Specimen Blood Performing Organization Address City/State/Zipcode Ph one Number [facility] [address] [place] [address] LABORATORIES [facility] [address] [place] [address] documented in this encounter Visit Diagnoses Diagnosis Achalasia Achalasia and cardiospasm documented in this encounter Administered Medications Action Date Dose Rate Site Medication Order MAR Action 02/08/2019 1:24 PM FOREST SCIENCE PROFESSOR 650 mg acetaminophen (TYLENOL) 650 mg/20.3 mL Given solution 325-650 mg 325-650 mg, Oral, Every 6 hours PRN, mild pain (pain score 1-3), Indications : fever, pain, Starting 02/08/19 at 1259, Do not exceed 4 GM/DAY of acetaminophen. If 65 or older do not exceed 3 GM/DAY. If chronic alcoholic d o not exceed 2 GM/DAY., 02/12/2019 3:00 PM FOREST SCIENCE PROFESSOR 100 Units Esophagu s botulinum toxin Type A (BOTOX) injection Given 100 Units 100 Units, Injection, Once, Indications : achalasia of esophagus, [place] 02/12/19 at 1330, For 1 dose, Intra-op 02/13/2019 8:35 AM FOREST SCIENCE PROFESSOR 3 mg budesonide (ENTOCORT EC) 24 hr capsule 3 Given mg 3 mg, Oral, Daily, Indications: infection, eosinophilic esophagitis, First dose on 02/08/19 at 0900, DO NOT CRUSH OR CHEW., 3 mg Given 02/11/2019 8:22 AM FOREST SCIENCE PROFESSOR 3 mg Given 02/08/2019 10:04 AM FOREST SCIENCE PROFESSOR 02/13/2019 8:36 AM FOREST SCIENCE PROFESSOR 25 mg carvedilol (COREG) tablet 25 mg Given 25 mg, Oral, 2 times daily, First dose on Sat02/10/19 at 2100 25 mg Given 02/12/2019 9:17 PM FOREST SCIENCE PROFESSOR 25 mg Given 02/12/2019 4:17 PM FOREST SCIENCE PROFESSOR 02/13/2019 11:03 AM FOREST SCIENCE PROFESSOR 2 g 100 mL/hr cefTRIAXone (ROCEPHIN) 2 g in sodium New Bag chloride ADDV (NS) 50 mL IVPB 2 g, Intravenous, at 100 mL/hr, Daily, Indications: pneumonia, First dose on [place] 02/12/19 at 1000, For 7 doses 2 g 100 mL/hr New Bag 02/12/2019 11:22 AM FOREST SCIENCE PROFESSOR 02/13/2019 5:12 AM FOREST SCIENCE PROFESSOR 125 mcg dofetilide (TIKOSYN) capsule 125 mcg Given 125 mcg, Oral, Every 12 hours, Indications: cardioversion of atrial fibrillation, paroxysmal supraventricular tachycardia, First dos e on [place] 02/08/19 at 0045, DO NOT CRUSH OR CHEW., 125 mcg Given 02/12/2019 4:16 PM FOREST SCIENCE PROFESSOR 125 mcg Given 02/11/2019 8:35 PM FOREST SCIENCE PROFESSOR 02/13/2019 8:35 AM FOREST SCIENCE PROFESSOR 40 mg esomeprazole (NexIUM) capsule 40 mg Given 40 mg, Oral, 2 times daily before meals , Indications: gastroesophageal reflux disease, First dose (after last modification) on 02/11/19 at 1700, Instruction for ng/peg/tube administration of [...] , 40 mg Given 02/12/2019 4:15 PM FOREST SCIENCE PROFESSOR 40 mg Given 02/11/2019 5:16 PM FOREST SCIENCE PROFESSOR hydrALAZINE (APRESOLINE) injection 10 m g 10 mg, Intravenous, Every 6 hours PRN, high blood pressure, for SBP > 170 or DBP > 100, Starting [place] 02/08/19 at 0055 02/12/2019 4:19 PM FOREST SCIENCE PROFESSOR 15 mg ketorolac (TORADOL) injection 15 mg Given 15 mg, Intravenous, Every 6 hours PRN, moderate pain (pain score 4-6), severe pain (pain score 7-10), Starting 02/09/19 at 1404, For 5 days 15 mg Given 02/12/2019 12:43 PM FOREST SCIENCE PROFESSOR 15 mg Given 02/10/2019 8:12 AM FOREST SCIENCE PROFESSOR magnesium sulfate IVPB 2 gram (premix) 2 g, Intravenous, at 25 mL/hr, As needed, standard electroyte replacement , Starting [place] 02/08/19 at 0327, Replace i n addition [...] for 6 hours (if able to monitor)., 02/13/2019 11:41 AM FOREST SCIENCE PROFESSOR 500 mg 200 mL/hr metroNIDAZOLE (FLAGYL) IVPB 500 mg New Bag 500 mg, Intravenous, Administer over 30 Minutes, Daily, Indications: ASPIRATION PNEUMONIA, First dose on [place] 02/12/19 at 1000, Bag 1 of 2 Avoid Alcohol in Food and Drinks, 500 mg 200 mL/hr New Bag 02/12/2019 11:25 AM FOREST SCIENCE PROFESSOR 02/13/2019 12:20 PM FOREST SCIENCE PROFESSOR 500 mg 200 mL/hr metroNIDAZOLE (FLAGYL) IVPB 500 mg New Bag 500 mg, Intravenous, Administer over 30 Minutes, Daily, Indications: ASPIRATION PNEUMONIA, First dose on [place] 02/12/19 at 1000, Bag 2 of 2 Avoid Alcohol in Food and Drinks, 500 mg 200 mL/hr New Bag 02/12/2019 12:05 PM FOREST SCIENCE PROFESSOR 02/13/2019 8:36 AM FOREST SCIENCE PROFESSOR 10 mg PARoxetine (PAXIL) tablet 10 mg Given 10 mg, Oral, Daily, Indications: anxiet y with depression, First dose on 02/08/19 at 0900 10 mg Given 02/12/2019 4:16 PM FOREST SCIENCE PROFESSOR 10 mg Given 02/11/2019 8:24 AM FOREST SCIENCE PROFESSOR potassium bicarb-citric acid (EFFER-K) effervescent tablet 20 [...] of 20 mEq/hr through a central line., documented in this encounter Additional Health Concerns Last Indicated Resolved Time Infection Onset Date 02/12/2019 02/12/2019 12:39 PM FOREST SCIENCE PROFESSOR C.Difficile - Rule Out 02/12/2019 documented as of this encounter
--- OUTSIDE RECORDS SUMMARY | 2019-08-31 20:39 | XMS REPORT | Encounter Summary ---
Author Author [facility] Address Unknown Phone Unavailable Care Team Providers Care Gas Manager Name Role Phone Yulissa Zapata PCP Reason for Visit * Auth/Cert (Routine) Referred By Contact Referred To Contact Status Reason Specialty Diagnoses / Procedures Rosendo King MD [address] [facility] [place] [address] New Request Procedures Case request operating room: ESOPHAGOGASTRODUOD ENOSCOPY (EGD) Encounter Details Care Team Description Date Type Department Lorie Yadav MD [address] [place], [place] [id number] David Ma MD [address] [facility] [address] [place], [place] [id number] 02/10/2019 Anesthesia [facility] al Event [address] [place] [address] Anesthesia Record Responsible Anesthesiologist Anesthesia Start Time Anesthesi a Stop Time Procedure Name Lroie Yadav MD 02/10/19 1519 02/10/19 1609 ESOPHAGOGASTRODUODENOSCOP Y (EGD) (N/A ) Date Time Event Comment 1501 AN Equip Check 2019 151 In room 1519 An Start 1519 An Start Data 1522 Pt eval immediately prior to anesthesia 1524 Preoxygenated Prior to Induction 1524 An Induction 1525 RSI/Cricoid 1525 An Intubation 1527 Anesthesia Ready 1527 TETRYL DISSOLVER OPERATOR/AA Herbert Johnston CRNA Intraprocedure Sign-Off 1531 Procedure start - Primary Case 1546 1557 Procedure stop - Primary case 1601 Spontaneous respirations 1603 Adequate Tidal Volume 1603 FiO2 to 100% Prior to Suctioning 1603 Suction 1603 An Extubation 1603 Oxygen per face mask 1604 an stop data 1604 Transported with O2 1604 Out of Room 1609 Handoff I completed my SBAR handoff to the receiving nurse in the PACU/ICU/OB Patient and PACU/ICU/OB nurse identifie d Discussed patient medical history Discussed procedure Reviewed intraopera tive anesthetic management and issues/concerns Discussed expectation f or early post-procedure period Questions from PACU/ICU/OB team address ed 1609 An Stop Meds Name Total lidocaine 1% (PF) 50 mg propofol 10mg/mL 140 mg succinylcholine (ANECTINE) 20 mg/mL 100 mg injection ondansetron 2mg/mL 4 mg sodium chloride 0.9% 250 mL * Name Cell Saver Blood Intake O2 N2O Air EtSEVO EtISO EtDES EtN2O * No blood administrations on file. Removal Type Details Placement Peripheral Date: 02/08/19; Time: 005; Size 02/08 0050 by Jono IV (gauge): 20 G; Orientation: Left; Cecille garner RN Location: Antecubital 02/10/19 1603 by Herbert Johntson CRNA Non-Surgic Date: 02/10/19; Time: 1525; Able to mas k 02/10/19 1525 by Herbert etienne Airway ventilate prior to placement: N/A; Cecilio browning CRNA Placed By: Tuber Operator; Site: Oral; Device: ETT - Cuffed; Size: 7; Units: Centimeters; Method: Laryngoscope; Blad e Type: MAC; Blade Size: 3; Attempts: 1; Grade View: II; Misc: Cricoid Pressure; Airway Observations: oropharynx clear, cords visualized; Cuff Volume: 8; Secured At (cm): 22; Measured From: Gums; Removal Date: 02/10/19; Removal Time: 1603 documented in this encounter Social History Date [...] Miscellaneous Notes * Anesthesia Postprocedure Evaluation - Lorie Yadav MD - 02/10/2019 6:14 PM FINGERPRINT EXPERT Anesthesia Post Evaluation Procedure(s):ESOPHAGOGASTRODUODENOSCOPY (EGD) Surgeon: Anthony Camilo MD Patient Evaluated in: PACU Patient Participation: complete - patient participated Level of Consciousness: awake and alert Pain Score: 0, with adequate pain management. Airway Patency: patent Respiratory Status: spontaneous ventilation and nasal cannula Cardiovascular Status: hemodynamically stable Postoperative Hydration: euvolemic Postop Nausea/Vomiting: no PONV in PACU Anesthetic Complications: No Appropriate for discharge from anesthesia care, no apparent anesthesia related c omplication ANE Post Eval Vitals Most Recent Value BP (!) 155/89 filed at 02/10/2019 1700 Pulse 65 filed at 02/10/2019 1700 Temp 36.4 C (97.6 F) filed at 02/10/2019 1609 Resp 18 filed at 02/10/2019 1700 SpO2 (!) 89 % filed at 02/10/2019 1700 92% on discharge ERPRINT EXPERT * Anesthesia Preprocedure Evaluation - Lorie Yadav MD - 02/10/2019 3:42 PM FINGERPRINT EXPERT Anesthesia Evaluation No history of anesthetic complications Airway Mallampati: II TM distance: <3 FB Neck ROM: full Adequate mouth opening No prominent facial hair No mandibular prognathism past upper incisors. Dental - normal exam Pulmonary Breath sounds clear to auscultation, Lung sounds: normal, (+) sleep apnea CPAP, pneumonia, Comment: 2L O2 by nasal cannula Cardiovascular Heart sounds: normal Rhythm: regular Rate: normal (+) hypertension, hyperlipidemia, , CHF, dysrhythmias atrial fib/flutter, Comment: 11/24/2018 Echo IMPRESSION 1. Normal LV and RV size and systolic function. LVEF estimated at 65%, 2. No significant valvular abnormalities. 3. Spontaneous echocontrast in the LA appendage but no visible thrombus. Neuro/Psych GI/Hepatic/Renal (+) GERD, Comments: Esophageal stricture Concern for aspiration Endo/Other Abdominal Obstetrics HEENT Musculoskeletal Hematology/Oncology Anesthesia Plan ASA 3 Type: general () Plan to include: RSI and oral ETT Plan discussed with TETRYL DISSOLVER OPERATOR. Anesthetic plan and risks discussed with patient. Recovery plan: PACU ERPRINT EXPERT documented in this encounter Plan of Treatment Not on filedocumented as of this encounter Visit Diagnoses Not on filedocumented in this encounter Administered Medications Action Date Dose Rate Site Medication Order MAR Action 02/10/2019 3:24 PM FINGERPRINT EXPERT 50 mg lidocaine (pf) (XYLOCAINE-MPF) 10 mg/mL Given (1 %) injection As needed, Starting 02/10/19 at 1524 , Anesthesia Intra-op 02/10/2019 3:39 PM FINGERPRINT EXPERT 4 mg ondansetron (ZOFRAN) injection Given As needed, Starting 02/10/19 at 1539 , Anesthesia Intra-op 02/10/2019 3:24 PM FINGERPRINT EXPERT 140 mg propofol (DIPRIVAN) injection Given As needed, Starting 02/10/19 at 1524 , Anesthesia Intra-op 02/10/2019 3:15 PM FINGERPRINT EXPERT sodium chloride 0.9% infusion New Bag Continuous PRN, Starting 02/10/19 at 1515, Anesthesia Intra-op 02/10/2019 3:24 PM FINGERPRINT EXPERT 100 mg succinylcholine (ANECTINE) injection Given As needed, Starting 02/10/19 at 1524 , Anesthesia Intra-op documented in this encounter
--- OUTSIDE RECORDS SUMMARY | 2019-08-31 20:39 | XMS REPORT | Encounter Summary ---
Author Author [facility] Organization [facility] Address Unknown Phone Unavailable Care Team Providers Care Senior Quality Assurance Analyst Name Role Phone Yulissa Zapata PCP Reason for Visit * Auth/Cert (Routine) Referred By Contact Referred To Contact Status Reason Specialty Diagnoses / Procedures Rosendo King MD [address] [facility] [place] [address] New Request Procedures Case request operating room: ESOPHAGOGASTRODUOD ENOSCOPY (EGD) Encounter Details Care Team Description [place] [address] [facility] [address] [place] [address] [phone] ESOPHAGOGASTRODUODENOSCOPY (EGD) [facility] [address] [place] [address] Social History Date Tobacco Use [...] Comments Vital Sign 109/64 02/13/2019 1:36 PM FABRICATION MIG WELDER Blood Pressure 63 02/13/2019 1:36 PM FABRICATION MIG WELDER Pulse 36.7 C (98 F) 02/13/2019 11:50 AM FABRICATION MIG WELDER Temperature 20 02/13/2019 11:50 AM FABRICATION MIG WELDER Respiratory Rate 95% 02/13/2019 11:50 AM FABRICATION MIG WELDER Oxygen Saturation - - Inhaled Oxygen Concentration 90.4 kg (199 lb 4.8 oz) 02/13/2019 4:11 AM FABRICATION MIG WELDER Weight 165.1 cm (5' 5") 02/07/2019 11:28 PM FABRICATION MIG WELDER Height 33.17 02/07/2019 11:28 PM FABRICATION MIG WELDER Body Mass Index documented in this encounter Discharge Summaries * Marcus Bush, DO - 02/13/2019 11:21 AM FABRICATION MIG WELDER [facility] POLITICAL RESEARCH SCIENTIST Hospitalist Discharge Summary Patient Name: Pau Wren [...] PCP was unable to re ach the [facility] GI clinic so she saw a different [...] little water so she was transferred to [facility]. During EGD Attempt 02/09/2019, she appeared to aspirate secondary to retained flu id and food in her esophagus. Repeat EGD done 02/10/19 did not find evidence of retained food or stricture. GI suspects achalasia and recommends outpatient man ometry at [facility] as outpatient. She will be started [...] signed by: Marcus Bush 02/13/2019 11:21 AM ICATION MIG WELDER documented in this encounter Discharge Instructions * Appointments* Sharon Baxter RN - 02/11/2019 9:38 AM FABRICATION MIG WELDER If you need to reschedule your Cardiology appointment, please [facility] at [phone]. Thank you! ICATION MIG WELDER * Attachments The following attachments cannot be sent through Care Everywhere.* Piperacillin; Tazobactam injection (Malay) documented in this encounter Medications at Time [...] Waldo Chavarria MD - 02/13/2019 9:01 AM FABRICATION MIG WELDER GI Progress Note NAME: Pau Wren ADMISSION [...] Intake/Output Summary (Last 24 hours) at 02/13/2019 0902 Last data filed at 02/12/2019 2030 Gross [...] or edited the final report. READING SITE: [facility] Xr Chest Single View Frontal Result Date: 02/09/2019 1. Findings are suggestive of bronchitis with right basilar pneumonia/aspiration. READING SITE: [facility] ENDOSCOPY EGD 02/10/19 Corrugated mucosa and [...] had dilation at an outside hospital and [place], [place]. Endoscopy report reviewed and jair ent had empiric balloon dilation to 16.5 mm for suspected achalasia at the [facility]. She was also started on Cardizem that she did not tolerate due to hypo tension. EGD done on 02/10 showed no signs of strictures, poor peristalsis may be suggesti ve of achalasia. Due to persistent symptoms, EGD was repeated on 02/12 and Botox injection was don e above the GE junction. On license of [facility] was contacted and patient to be scheduled [...] referral to Dr. El gutierrez at the [facility] to discuss poor oral endoscopic myotomy. * Marcus Bush, - 02/12/2019 12:02 PM FABRICATION MIG WELDER [facility] POLITICAL RESEARCH SCIENTIST Hospitalist Progress Note Patient Name: Pau Wren [...] Her PCP was unable to reach the [facility] GI clinic so she saw a different [...] little water so she was transferred to [facility]. During EGD Attempt 02/09/2019, she appeared to aspirate secondary to retained flu id and food in her esophagus. Repeat EGD done 02/10/19 did not find evidence of retained food or stricture. GI suspects achalasia and recommends outpatient man ometry at [facility] as outpatient. She will be started [...] index is 33.5 kg/m. Marcus Bush DO [facility] Program Please page through Voalte Messaging using template format. Electronically signed by Marcus Bush 02/12/2019 12:02 PM ICATION MIG WELDER * Marcus Bush, - 02/11/2019 1:33 PM FABRICATION MIG WELDER [facility] POLITICAL RESEARCH SCIENTIST Hospitalist Progress Note Patient Name: Pau Wren [...] Her PCP was unable to reach the [facility] GI clinic so she saw a different [...] little water so she was transferred to [facility]. During EGD Attempt 02/09/2019, she appeared to aspirate secondary to retained flu id and food in her esophagus. Repeat EGD done 02/10/19 did not find evidence of retained food or stricture. GI suspects achalasia and recommends outpatient man ometry at [facility] as outpatient. She will be started [...] index is 33.23 kg/m. Marcus Bush DO [facility] Program Please page through Voalte Messaging using template format. Electronically signed by Marcus Bush 02/11/2019 1:33 PM ICATION MIG WELDER * Waldo Chavarria MD - 02/11/2019 1:16 PM FABRICATION MIG WELDER GI Progress Note NAME: Pau Wren ADMISSION [...] (98.9 F) Oral 60 20 94 % 02/10/192299 139/73 37.2 C (98.9 F) Oral 60 [...] or edited the final report. READING SITE: [facility] Xr Chest Single View Frontal Result Date: 02/09/2019 1. Findings are suggestive of bronchitis with right basilar pneumonia/aspiration. READING SITE: [facility] ENDOSCOPY EGD 02/10/19 Corrugated mucosa and [...] had dilation at an outside hospital and [place], [place]. There was also reportedly esophage al [...] any questions. Waldo Chavarria MD Gastroenterology Fellow T Associated attestation - Chau Christy MD - 02/11/2019 1:50 PM CS T I have seen and evaluated the patient. I reviewed above note and discussed plan of care with the resident/fellow. Endoscopic picture is concerning for motility problem, possibly achalasia. Will encourage patient to attempt clear liquids po ssibly advance to full liquid diet. Ideally she would be able to be discharged on a full liquid diet and undergo esophageal motility study at On license of [facility] as an outpatient. If this is not feasible, repeat upper endoscopy with botulinu m toxin injection to lower esophageal sphincter region will be performed tomorro w in an effort to allow hospital discharge. * Kristina Conrad, JOSUE - 02/10/2019 4:07 PM FABRICATION MIG WELDER Attempt to see patient today x2 this afternoon. Out of room for EGD. Will plan t o see patient in AM. ICATION MIG WELDER * Marcus Bush, - 02/10/2019 3:22 PM FABRICATION MIG WELDER [facility] POLITICAL RESEARCH SCIENTIST Hospitalist Progress Note Patient Name: Pau Wren [...] Her PCP was unable to reach the [facility] GI clinic so she saw a different [...] little water so she was transferred to [facility]. During EGD Attempt 02/09/2019, she appeared [...] index is 33.23 kg/m. Marcus Bush DO [facility] Program Please page through Voalte Messaging using template format. Electronically signed by Marcus Bush 02/10/2019 3:22 PM ICATION MIG WELDER * Katheryn Aguilar - 02/10/2019 10:50 AM FABRICATION MIG WELDER Pau was sitting in bed visiting with her daughter Althea and [id number] Maryjane, the room was well lite when [...] Katheryn Aguilar, 02/10/2019 1:31 PM Pager Number: [phone] ICATION MIG WELDER * Marcus Bush DO - 02/09/2019 12:58 PM FABRICATION MIG WELDER [facility] POLITICAL RESEARCH SCIENTIST Hospitalist Progress Note Patient Name: Pau Wren [...] Her PCP was unable to reach the [facility] GI clinic so she saw a different [...] little water so she was transferred to [facility]. Assessment/Plan: * Esophageal dysphagia Concern for [...] index is 33.23 kg/m. Marcus Bush DO [facility] Program Please page through Voalte Messaging using template format. Electronically signed by Marcus Bush 02/09/2019 12:58 PM ICATION MIG WELDER * Jenae Suarez PharmD - 02/09/2019 9:58 AM FABRICATION MIG WELDER Pharmacist Warfarin Dosing Sign-Off Note Warfarin is no longer an active order. Pharmacy will sign-off on further dosing at this time. If warfarin therapy is to be resumed, an order for Pharmacy to Dos e Warfarin needs to be resubmitted to pharmacy services for further management. Jenae Suarez PharmD Kwame Lauren PharmChhaya - 02/08/2019 11:41 AM FABRICATION MIG WELDER Pharmacist Warfarin Dosing Progress Note Pau Wren [...] therapy as needed per CDTM agreement. Kwame Curtis, Tessa If a patient requires an invasive procedure that necessitates warfarin being hel d it is the responsibility of the physician to communicate this to the pharmacis t or discontinue the warfarin. The pharmacist to dose warfarin order will be dis continued per CDTM agreement and warfarin therapy will no longer be managed by kaylyn lagunas unless re-consulted. ICATION MIG WELDER * Lennox Taylor MD - 02/08/2019 6:43 AM FABRICATION MIG WELDER [facility] Hospitalist - Progress Note Patient Name: Pau Wren Account No: [id number] Date of : 1950 Date of Admission: [...] results (as indicated), current inpatient medications and legal support assistant notes with pertainent findings noted within the [...] details regarding this patients treatment plan. Room: [address] [place] [address] Diet: CLD, NPO at midnight for possible [...] chlorid e in water Dany Briceño MD [facility] Medicine Division Please page through physician paging. . I saw and examined the patient with Dr Dany Briceño MD. I agree with history , exam, assessment and plan as documented in resident's note. I have edited as a ppropriate to reflect my findings. EGD tomorrow and possibly discharge after that ICATION MIG WELDER * Paul Scott PharmD - 02/08/2019 3:19 AM FABRICATION MIG WELDER Pharmacist Warfarin Dosing Progress Note Pau Wren [...] be managed by kaylyn lagunas unless re-consulted. ICATION MIG WELDER documented in this encounter H&P Notes * David Ma MD - 02/12/2019 1:09 PM FABRICATION MIG WELDER PRE ENDOSCOPIC PROCEDURE HISTORY AND PHYSICAL Procedure: [...] ESOPHAGOGASTRODUODENOSCOPY, USING BIOPSY; Surgeon: Randi Stewart; Location: [facility] GI; Service: Gastroenterology; Laterality: N/A; ESOPHAGOGASTRODUODENOSCOPY (EGD) N/A 02/09/2019 Procedure: ESOPHAGOGASTRODUODENOSCOPY (EGD); Surgeon: Brent Tao MD; Locati on: [facility] GI; Service: Gastroenterology; Laterality: N/A; ESOPHAGOGASTRODUODENOSCOPY (EGD) N/A 02/10/2019 Procedure: ESOPHAGOGASTRODUODENOSCOPY (EGD); Surgeon: Anthony Camilo MD; Location: [facility] GI; Service: Gastroenterology; Laterality: N/A; FOOT SURGERY [...] "stuck" Essential hypertension GERD (gastroesophageal reflux disease) USP current use of antiarrhythmic drug 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 terminal 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 current use of anticoagulant therapy Mitral [...] Anthony Parks MD - 02/10/2019 3:09 PM FABRICATION MIG WELDER PRE ENDOSCOPIC PROCEDURE HISTORY AND PHYSICAL Procedure: [...] ESOPHAGOGASTRODUODENOSCOPY, USING BIOPSY; Surgeon: Randi Stewart; Location: [facility] GI; Service: Gastroenterology; Laterality: N/A; ESOPHAGOGASTRODUODENOSCOPY (EGD) N/A 02/09/2019 Procedure: ESOPHAGOGASTRODUODENOSCOPY (EGD); Surgeon: Brent Tao MD; Locati on: [facility] GI; Service: Gastroenterology; Laterality: N/A; FOOT SURGERY [...] "stuck" Essential hypertension GERD (gastroesophageal reflux disease) USP current use of antiarrhythmic drug 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 terminal operator current use of anticoagulant therapy Mitral [...] signed by Anthony Camilo 02/10/2019 3:10 PM ICATION MIG WELDER * Brent Tao MD - 02/09/2019 10:08 AM FABRICATION MIG WELDER PRE ENDOSCOPIC PROCEDURE HISTORY AND PHYSICAL Procedure: [...] ESOPHAGOGASTRODUODENOSCOPY, USING BIOPSY; Surgeon: Randi Stewart; Location: [facility] GI; Service: Gastroenterology; Laterality: N/A; FOOT [...] "stuck" Essential hypertension GERD (gastroesophageal reflux disease) USP current use of antiarrhythmic drug USP current use of anticoagulant therapy Mitral regurgitation [...] pillars and uvula hidden by base of reina huff Per anesthesia Anesthesia/Sedation: Per anesthesia/Conscious sedation Preprocedure [...] signed by Brent Tao 02/09/2019 10:08 AM ICATION MIG WELDER * Joseline Marrero MD - 02/07/2019 11:45 PM FABRICATION MIG WELDER [facility] Physical Patient Name: aPu Wren Account No: [id number] Date of : 1950 Date of Admission: [...] Her PCP was unable to reach the [facility] GI clinic so she saw a different [...] little water so she was transferred to [facility] from [facility] for further assessment. 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 Joseline Marrero MD [facility] Medicine Division Please page through physician paging. . ICATION MIG WELDER documented in this encounter Consult Notes * Chelsea Delgado MD - 02/09/2019 2:33 PM FABRICATION MIG WELDER Associated Order(s): IP CONSULT TO CARDIOLOGY [facility] Cardiology Consult Date: 02/09/2019 Established [facility] patient: Yes: Provider: Willow Last date seen: [...] NSR. Patient anticoagulated with warfarin managed by [facility]. 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 READING SITE: [facility] EKG: Normal Sinus Rhythm at 59 [...] Family Another healthcare provider Patient's daughter present ICATION MIG WELDER * Jenna Borges MD - 02/08/2019 12:22 PM FABRICATION MIG WELDER Associated Order(s): IP CONSULT TO GASTROENTEROLOGY [facility] GI Inpatient New Consult Note Name: Pau [...] had dilation at an outside hospital and [place], [place]. There was also reportedly esophageal spasms [...] "stuck" Essential hypertension GERD (gastroesophageal reflux disease) keno terminal operator current use of antiarrhythmic drug keno terminal operator current use of anticoagulant therapy Mitral [...] ESOPHAGOGASTRODUODENOSCOPY, USING BIOPSY; Surgeon: Randi Stewart; Location: [facility] GI; Service: Gastroenterology; Laterality: N/A; FOOT [...] had dilation at an outside hospital and [place], [place]. There was also reportedly esophage al [...] this past week from outside hospital at [facility] in [place], [place] -NPO at midnight -Hold warfarin, if [...] Fellow Disclaimer: This note was dictated using GENBAND software and while checked, it m ay have unintentional errors. ATTENDING ADDENDUM I saw and examined the patient with the fellow and agree with the note as below. She has a history of EoE diagnosed by Dr. Balderas. She has recurrence of dyspha sil. No concern for food bolus impaction. Will plan for EGD tomorrow. Jenna Borges MD ICATION MIG WELDER documented in this encounter Nursing Notes * Lissette Fairbanks RN - 02/12/2019 3:59 PM FABRICATION MIG WELDER Returned from GI procedure. HR a-fib VR 130 Inc of stool. Extensive clean up in bed on monitor. Cardiac medications given, with pt sitting side of bed. T * Lissette Fairbanks RN - 02/12/2019 10:33 AM FABRICATION MIG WELDER GI MD at bedside. T * Chelsea Miller, ZULLY - 02/09/2019 12:03 PM FABRICATION MIG WELDER Stabilized, egd stopped after noted food/fluid in esophagus ICATION MIG WELDER * Kayley Herrera RN - 02/08/2019 9:00 AM FABRICATION MIG WELDER With AM vitals, O2 noted to be 74%. Patient has gel nailpolish on fingernails & toenails. Difficulty getting accurate read on earlobe. Patient reporting mild S OA but carrying on conversation & appeared to be in no distress. Applied 2 L NC & O2 reading 96%. Updated med-teaching resident of this during morning rounding. Patient resting comfortably, reporting no further SOA. ICATION MIG WELDER documented in this encounter Miscellaneous Notes * Nursing Discharge - Zohaib Helton RN - 02/13/2019 2:10 PM FABRICATION MIG WELDER Nursing Discharge Note Patient is stable for discharge. Reviewed discharge instructions and patient ve rbalized understanding, had no further questions, and left the unit in wheel galo ir with staff. Patient traveling home with in personal Vehicle. Patient/family satisfied with progress made towards goals and ready for discharg e. ICATION MIG WELDER * Care Progression Final DC Note - Dayami Bennett RN - 02/13/2019 11:49 AM FABRICATION MIG WELDER Final Discharge Note Final Discharge Disposition: 01-Home Self Care Discharge goal and plan is mutually agreed upon by patient Patient will discharge to: home, self care Transportation: pts family Discharge Time: appr 12-1300 Special Instructions: none ICATION MIG WELDER * End of Shift Note - Rula Ball RN - 02/13/2019 6:02 AM FABRICATION MIG WELDER End of Shift Summary and Plan of [...] EGD 02/08/19, mo nitor tolerance of CLD. ICATION MIG WELDER * End of Shift Note - Lissette Fairbanks RN - 02/12/2019 5:22 PM FABRICATION MIG WELDER End of Shift Summary and Plan of [...] Chau Christy MD - 02/12/2019 2:02 PM FABRICATION MIG WELDER EGD Report Date: 02/12/2019 2:02 PM Patient Name: PAU PANG (age): 1950 (69) Gender: Female Endoscopist(s): MD David Landrum MD Instrument(s): Scope # 9 - EG - 600WR - Regular - Fujinon([id number]) Anesthesia Provider: Rick Sutherladn MD Nurse(s): Neil Brooks RN Staff: MARIN [...] being detected during the procedure. The patient/patients wireless sales representative appeared to understand the procedure, the potential complications, and alternatives; had the opportunity to ask questions; and informed consent was obtained. The risk/benefit ratio was deemed appropriate to proceed with the procedure. General Anesthesia was administered by nurse commissions analyst. Continuous pulse oximetry and blood pressure monitoring [...] Rula Ball RN - 02/12/2019 5:39 AM FABRICATION MIG WELDER End of Shift Summary and Plan of [...] EGD 02/08/19, mo nitor tolerance of CLD. ICATION MIG WELDER * End of Shift Note - Aislinn Zhong RN - 02/11/2019 5:05 PM FABRICATION MIG WELDER End of Shift Summary and Plan of [...] EGD 02/08/19, mo nitor tolerance of CLD. ICATION MIG WELDER * Assessment & Plan Note - Marcus Bush DO - 02/11/2019 1:28 PM FABRICATION MIG WELDER Associated Problem(s): Aspiration pneumonia (HCC) Secondary to retained esophogeal food: -completed 3/4 days of zosyn, now has diarrhea -change to rocephin / flagyl to see if less affect on gut -repeat procalcitonin trending down ICATION MIG WELDER * Sign-Off Note - Kristina Conrad NP - 02/11/2019 9:18 AM FABRICATION MIG WELDER [facility] Sign-Off Note Name: Pau Wren CPI: [id number] Date of : 1950 Primary care physician: [...] y.o. female who is currently admitted to [facility] [place] under the Hospitalist service. We were consulted [...] has not required diuresis this admission. - OUTFITTER CABIN medications include Lasix 40mg daily although patient [...] assistance to the care of this patient. ICATION MIG WELDER * Provider Clarification Response - Marcus Bush DO - 02/11/2019 8:01 AM FABRICATION MIG WELDER [facility] Query Respons e Note PATIENT: PAU WREN : 1950 ADMIT DATE: 02/07/2019 11:25 PM DISCH DATE: RESPONDING PROVIDER #: [id number] RESPONSE TEXT: The patient has aspiration pneumonia. [...] by: MARCUS VAUGHAN DO 02/11/2019 8:00 AM ICATION MIG WELDER * End of Shift Note - Tomasa Foreman, ZULLY - 02/11/2019 6:44 AM FABRICATION MIG WELDER End of Shift Summary and Plan of [...] EGD 02/08/19, mo nitor tolerance of CLD. ICATION MIG WELDER * End of Shift Note - Kayley Herrera RN - 02/10/2019 7:49 PM FABRICATION MIG WELDER End of Shift Summary and Plan of [...] EGD 02/08/19, mo nitor tolerance of CLD. ICATION MIG WELDER * Nutrition Note - Lilliam Lai RD - 02/10/2019 11:50 AM FABRICATION MIG WELDER Nutrition Assessment [facility] DIAGNOSIS & INTERVENTION: DIAGNOSIS 1 Nutrition Diagnosis [...] Usual Body Weight: 96.2 kg (212 lb) [place] Body Weight: 56.7 kg (125 lb) % [place] Body Weight: 159 % % Weight Loss [...] sses Digestive System (Mouth to Rectum): LBM 02/08 Head and Eyes: WNL Nerves and Cognition: [...] Estimated Energy Needs Total Energy Estimated Needs: 4897-5133 kcal/day Method for Estimating Needs: MSJ 1.2-1.4 Estimated Protein Needs Total Protein Estimated Needs: 57-68 gm/day Method for Estimating Needs: 1.0-1.2 gm/day Fluid Needs Total Fluid Estimated Needs: per MD MONITORING/EVALUATION: 1. Food & Nutrition Related Hx: Energy Intake 2. Anthropometrics: Weight change 3. Biochemical: Nutrition related labs 4. Nutrition-focused physical findings: GI function, skin Electronically signed by Lilliam Lai 02/10/2019 11:50 AM ICATION MIG WELDER * Operative Note - Anthony Camilo MD - 02/10/2019 9:00 AM FABRICATION MIG WELDER EGD Report Date: 02/10/2019 9:00 AM Patient Name: PAU WREN DOB (age): 1950 (69) Gender: Female Endoscopist(s): Anthony Camilo MD Instrument(s): Scope # 3 - EG - 600WR - Regular - Fujinon([id number]) Anesthesia Provider: Lorie Yadav MD Nurse(s): Lorena [...] being detected during the procedure. The patient/patients wireless sales representative appeared to understand the procedure, the [...] 02/10/2019 4:02:20 PM by Anthony Camilo MD ICATION MIG WELDER * End of Shift Note - Julio C Pineda RN - 02/10/2019 7:37 AM FABRICATION MIG WELDER End of Shift Summary and Plan of [...] EGD 02/08/19, mo nitor tolerance of CLD. ICATION MIG WELDER * Care Progression Initial Assessment - Dayami Bennett RN - 02/09/2019 1:27 PM FABRICATION MIG WELDER Care Progression Initial Assessment Note Admit for [...] system has been Support System: [facility]significant [facility] Patient has verbalized the following concerns at [...] physician is Yulissa Zapata MD and mukul serrano their medications from [facility] #[id number] [facility] [address] [facility] [address] [facility] [address] [facility] [address] [place] [address] [facility] [address] DAYAMI BENNETT RN DIRECTOR EXPORT [phone] ICATION MIG WELDER * End of Shift Note - Kayley Herrera RN - 02/09/2019 12:38 PM FABRICATION MIG WELDER End of Shift Summary and Plan of [...] patient on plan for EGD 02/08/19, onel nitor tolerance of CLD. ICATION MIG WELDER * Operative Note - Brent Tao MD - 02/09/2019 9:30 AM FABRICATION MIG WELDER EGD Report Date: 02/09/2019 9:30 AM Patient Name: PAU PANG (age): 1950 (69) Gender: Female Endoscopist(s): MD David Alonso MD Instrument(s): Scope # 6 - EG - 600WR - Regular - Fujsunithan([id number]) Anesthesia Provider: Dayton Hopkins MD Nurse(s): Chelsea [...] being detected during the procedure. The patient/patients wireless sales representative appeared to understand the procedure, the [...] 12:04:07 PM by MD David Alonso MD ICATION MIG WELDER * End of Shift Note - Jono Negron RN - 02/09/2019 5:31 AM FABRICATION MIG WELDER End of Shift Summary and Plan of [...] EGD 02/08/19, mo nitor tolerance of CLD. ICATION MIG WELDER * End of Shift Note - Kayley Herrera RN - 02/08/2019 5:18 PM FABRICATION MIG WELDER End of Shift Summary and Plan of [...] tomorrow. Faxed request for medical records to [facility] [place], [place]. NSR on telemetry. Continuing to monitor. [...] EGD 02/08/19, mo nitor tolerance of CLD. ICATION MIG WELDER * End of Shift Note - Jono Negron RN - 02/08/2019 4:47 AM FABRICATION MIG WELDER End of Shift Summary and Plan of Care Patient data base complete IV intact with continuous fluids. IV ativan given pe r physician order check EMAR. Tikosyn delayed due to medication availability. Meme karen is NPO as of arrival. Skin intact. [...] Stay Nursing goal for hospital stay: Plan: ICATION MIG WELDER * Assessment & Plan Note - Marcus Bush DO - 02/08/2019 12:56 AM FABRICATION MIG WELDER Associated Problem(s): Paroxysmal atrial fibrillation (HCC) Currently in sinus rhythm: -continue dofetilide as PO allows -continue to hold warfarin as needs repeat EGD today ICATION MIG WELDER * Assessment & Plan Note - Marcus Bush DO - 02/08/2019 12:56 AM FABRICATION MIG WELDER Associated Problem(s): Essential hypertension Continue coreg ICATION MIG WELDER * Assessment & Plan Note - Marcus Buhs DO - 02/08/2019 12:55 AM FABRICATION MIG WELDER Associated Problem(s): Depression Continue Paxil ICATION MIG WELDER * Assessment & Plan Note - Marcus Bush DO - 02/08/2019 12:54 AM FABRICATION MIG WELDER Associated Problem(s): Esophageal dysphagia Concern for esophageal stricture s/p dilatation at outside hospital: -history of eosinophilic esophagitis -failed EGD attempt with possible aspiration 02/09 -repeat EGD 02/10/19 without stricture, clinical concern for achalasia -failed trial of clear liquid diet -plan Botox today as did not tolerate PO ICATION MIG WELDER * Hospital Course - Marcus Bush DO - 02/08/2019 12:45 AM FABRICATION MIG WELDER 69 y.o. female with h/o Afib on [...] Her PCP was unable to reach the [facility] GI clinic so she saw a different [...] little water so she was transferred to [facility]. During EGD Attempt 02/09/2019, she appeared to aspirate secondary to retained flu id and food in her esophagus. Repeat EGD done 02/10/19 did not find evidence of retained food or stricture. GI suspects achalasia and recommends outpatient man ometry at [facility] as outpatient. She will be started on clear liquid diet and initially tolerated but then could not keep down even pills. She continues to bring up frothy substance. ICATION MIG WELDER documented in this encounter Plan of Treatment Not on filedocumented as of this encounter Procedures Comments Procedure Name Priority Date/Time Associated Diag nosis CLOSTRIDIUM DIFFICILE STAT 02/12/2019 TOXIN BY PCR 10:45 AM FABRICATION MIG WELDER PROTHROMBIN TIME/INR Routine 02/12/2019 1:25 AM FABRICATION MIG WELDER PROCALCITONIN Routine 02/12/2019 1:25 AM FABRICATION MIG WELDER COMPLETE BLOOD COUNT Routine 02/12/2019 1:25 AM FABRICATION MIG WELDER ESOPHAGOGASTRODUODENOSCOP 02/10/2019 Esophageal stricture, Y (EGD) 3:15 PM FABRICATION MIG WELDER needs intubation. Special Needs Esophageal stricture, needs intubation . B12/FOLATE Add-On 02/10/2019 10:00 AM FABRICATION MIG WELDER RENAL PANEL Routine 02/10/2019 9:59 AM FABRICATION MIG WELDER PROTHROMBIN TIME/INR STAT 02/10/2019 9:[address] CHEST W CONTRAST Routine 02/10/2019 9:29 AM FABRICATION MIG WELDER PROCALCITONIN Routine 02/10/2019 2:45 AM FABRICATION MIG WELDER COMPLETE BLOOD COUNT Routine 02/10/2019 2:45 AM FABRICATION MIG WELDER XR CHEST SINGLE VIEW Routine 02/09/2019 FRONTAL 12:26 PM FABRICATION MIG WELDER XR OUTSIDE IMAGES FOR Routine 02/09/2019 Encounte r for PACS 7:05 AM FABRICATION MIG WELDER consultation XR ABDOMEN OUTSIDE IMAGES Routine 02/09/2019 Enco unter for FOR PACS 7:05 AM FABRICATION MIG WELDER consultation PROTHROMBIN TIME/INR Routine 02/08/2019 12:14 PM FABRICATION MIG WELDER ECG Routine 02/08/2019 1:12 AM FABRICATION MIG WELDER PROTHROMBIN TIME/INR Routine 02/08/2019 1:00 AM FABRICATION MIG WELDER COMPREHENSIVE METABOLIC Routine 02/08/2019 PANEL 1:00 AM FABRICATION MIG WELDER CBC AND DIFF (MANUAL DIFF Routine 02/08/2019 IF NECESSARY) 1:00 AM FABRICATION MIG WELDER documented in this encounter Results * Clostridium Difficile Toxin by PCR (02/12/2019 10:45 AM FABRICATION MIG WELDER) C difficile Not DetectedComment: NEGATIVE Not Detected [facility] for C. difficile [facility] Specimen Stool Performing Organization Address City/State/Zipcode Ph one Number [facility] [address] [place] [address] LABORATORIES [facility] [address] [place] [address] * Prothrombin Time/INR (02/12/2019 1:25 AM FABRICATION MIG WELDER) Only the most recent of 4 results within the time period is included. Protime 17.6 (H) 11.4 - 15.0 sec [facility] INR 1.5 (H) 0.8 - 1.2 [facility] Specimen Blood Performing Organization Address City/[facility]/[place]ust[place] Ph one Number [address] [address] LABORATORIES [facility] [address] [place] [address] * Complete Blood Count (02/12/2019 1:25 AM FABRICATION MIG WELDER) Only the most recent of 2 results within the time period is included. WBC 6.08 4.00 - 11.00 TH/uL [facility] Lab RBC 3.27 (L) 4.00 - 5.00 MIL/uL [facility] Lab Hemoglobin 10.7 (L) 12.0 - 15.0 g/dL [facility] Hematocrit 31 (L) 36 - 45 % [facility] MCV 95 80 - 99 fL [facility] MCH 33 27 - 34 pg [facility] MCHC 35 32 - 36 % [facility] RDW 11.9 11.5 - 14.5 % [facility] Platelet Count 225 140 - 400 TH/uL [facility] MPV 10.4 9.4 - 12.3 fL [facility] Nucleated RBCs 0 0 - 0 /100 [facility] Specimen Blood Performing Organization Address City/[facility]/[employer] Ph one Number [address] [address] LABORATORIES [facility] [address] [place] [address] * Procalcitonin (02/12/2019 1:25 AM FABRICATION MIG WELDER) Only the most recent of 2 results within the time period is included. Procalcitonin 0.51 (H) 0.00 - 0.10 ng/mL [facility] Comment: Hospital Lab PCT Value Interpretation [...] procalcitonin levels. Specimen Blood Performing Organization Address City/[facility] Ph one Number [address] [address] LABORATORIES [facility] [address] [place] [address] * B12/Folate (02/10/2019 10:00 AM FABRICATION MIG WELDER) VITAMIN B12 306 239 - 931 pg/mL [facility] Folate 9.2 3.4 - 20.0 ng/mL [facility] Specimen Blood Performing Organization Address City/[facility] Ph one Number [address] [address] LABORATORIES [facility] [address] [place] [address] * Renal Panel (02/10/2019 9:59 AM FABRICATION MIG WELDER) Sodium 138 133 - 147 MEQ/L [facility] Potassium 3.6 3.5 - 5.3 MEQ/L [facility] Chloride 106 96 - 112 MEQ/L [facility] Carbon Dioxide 22 20 - 32 MEQ/L [facility] Anion Gap 10 5 - 17 [facility] Calcium 8.2 (L) 8.4 - 10.5 mg/dL [facility] Glucose 73 70 - 100 mg/dL [facility] Albumin 3.1 (L) 3.5 - 5.0 g/dL [facility] Blood Urea 17 7 - 26 mg/dL [facility] Lab Creatinine 0.8 0.4 - 1.1 mg/dL [facility] Lab eGFR Female AA 85 60 - 200 [facility] mL/min/1.73sq m Hospital Lab eGFR Female 71 60 - 200 [facility] Non-AA mL/min/1.73sq [facility] Phosphorus 3.7 2.5 - 4.5 mg/dL [facility] Specimen Blood Performing Organization Address City/State/Zipcode Ph one Number [facility] [address] [place] [address] LABORATORIES [facility] [address] [place] [address] * CT Chest w contrast (02/10/2019 9:29 AM FABRICATION MIG WELDER) Specimen Impressions Performed At 1. Thickening of [...] or edited the final report. READING SITE: [facility] Narrative Performed At Patient: PAU WREN Sex#: F #: [id number] Natacha #: [id number] Location: [address] [address] Accession# : [id number] Procedure Requested: [id number] CT CHEST W CONTRAST Reason for Exam: [...] Rad Results In - 02/10/2019 12:58 PM FABRICATION MIG WELDER Patient: PAU WREN Sex#: F #: [id number] Natacha#: [id number] Location: [address] [address] Procedure Requested: [id number] CT CHEST W CONTRAST Reason for Exam: [...] or edited the final report. READING SITE: [facility] Performing Organization Address City/State/Zipcode Ph one Number [facility] * XR Chest single view frontal (02/09/2019 12:26 PM FABRICATION MIG WELDER) Specimen Impressions Performed At 1. Findings are suggestive of bronchitis with right b asilar ALBERTOSON pneumonia/aspiration. READING SITE: [facility] Narrative Performed At Patient: PAU WREN Sex#: F #: [id number] Natacha #: [id number] Location: [address] [address] Accession# : [id number] Procedure Requested: [id number] XR CHEST SINGLE VIEW FRONTAL Reason for [...] Rad Results In - 02/09/2019 12:35 PM FABRICATION MIG WELDER Patient: PAU WREN Sex#: F #: [id number] Natacha#: [id number] Location: [address] [address] Procedure Requested: [id number] XR CHEST SINGLE VIEW FRONTAL Reason for [...] bronchitis with right basilar pneumonia/aspiration. READING SITE: [facility] Performing Organization Address [facility] one Number [facility] * XR Outside images for PACS (02/09/2019 7:05 AM FABRICATION MIG WELDER) Specimen Performing Organization Address [facility] one Number [facility] * XR Outside images for PACS Abdomen (02/09/2019 7:05 AM FABRICATION MIG WELDER) Specimen Performing Organization Address [facility] one Number [facility] * Electrocardiogram (ECG) (02/08/2019 1:12 AM FABRICATION MIG WELDER) QRSd 106 [facility] QT 448 [facility] QTC 444 [facility] ECGHR 59 [facility] ECGPR 192 [facility] Specimen Narrative Performed At [facility] Test Date: 2019-02-08 Pat Name: PAU WREN Department: 56 Room: 10 Gender: Female 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 : 1950 Requested By: JOSELINE MARRERO Order Number: [id number] Reading MD: Brent Agarwal Measurements Intervals [place] Rate: 59 P: 39 FL: 192 QRS: 16 QRSD: 106 T: 41 QT: 448 QTc: 444 Interpretive Statements SINUS RHYTHM Electronically Signed On 02-08-2019 10:2 9:19 FABRICATION MIG WELDER by Brent Agarwal Procedure Note Interface, External Ris In - 02/08/2019 10:29 AM FABRICATION MIG WELDER [facility] Test Date: 2019-02-08 Pat Name: PAU WREN Department: 56 Room: 7410 Gender: Female Poured Pipe 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: [id number] : 1950 Requested By: JOSELINE MARRERO Order Number: [id number] Reading MD: Brent Agarwal Measurements Intervals [place] Rate: 59 P: 39 FL: 192 QRS: 16 QRSD: 106 T: 41 QT: 448 QTc: 444 Interpretive Statements SINUS RHYTHM Electronically Signed On 02-08-2019 10:29:19 FABRICATION MIG WELDER by Brent Agarwal Performing Organization Address City/State/Zipcode Ph one Number [facility] * CBC and Diff (manual diff if necessary) (02/08/2019 1:00 AM FABRICATION MIG WELDER) WBC 6.60 4.00 - 11.00 TH/uL [facility] RBC 3.52 (L) 4.00 - 5.00 MIL/uL [facility] Hemoglobin 11.7 (L) 12.0 - 15.0 g/dL [facility] Hematocrit 34 (L) 36 - 45 % [facility] MCV 97 80 - 99 fL [facility] MCH 33 27 - 34 pg [facility] MCHC 34 32 - 36 % [facility] RDW 12.5 11.5 - 14.5 % [facility] Platelet Count 162 140 - 400 TH/uL [facility] MPV 11.1 9.4 - 12.3 fL [facility] Nucleated RBCs 0 0 - 0 /100 [facility] % Neutrophils 74 45 - 78 % [facility] %Lymphocytes 16 15 - 47 % [facility] %Monocytes 9 0 - 12 % [facility] %Eosinophils 2 0 - 7 % [facility] %Basophils 1 0 - 2 % [facility] % Imm Grans 0 0 - 1 % [facility] # Granulocytes 4.87 1.70 - 6.80 TH/uL [facility] # Lymphocytes 1.02 1.00 - 3.30 TH/uL [facility] # Monocytes 0.56 0.20 - 0.90 TH/uL [facility] # Eosinophils 0.11 0.00 - 0.40 TH/uL [facility] # Basophils 0.03 0.00 - 0.10 TH/uL [facility] Specimen Blood Performing Organization Address City/State/Zipcode Ph one Number [facility] [address] [place] [address] LABORATORIES [facility] [address] [place] [address] * Comprehensive Metabolic Panel (02/08/2019 1:00 AM FABRICATION MIG WELDER) Sodium 141 133 - 147 MEQ/L [facility] Potassium 3.8 3.5 - 5.3 MEQ/L [facility] Chloride 110 96 - 112 MEQ/L [facility] Carbon Dioxide 24 20 - 32 MEQ/L [facility] Anion Gap 7 5 - 17 [facility] Calcium 8.9 8.4 - 10.5 mg/dL [facility] Glucose 93 70 - 100 mg/dL [facility] Protein Total 6.4 6.0 - 8.2 g/dL [facility] Serum [facility] Albumin 3.5 3.5 - 5.0 g/dL [facility] Alkaline 53 42 - 140 IU/L [facility] Alanine 18 0 - 34 IU/L [facility] e Aspartate 25 15 - 46 IU/L [facility] e Bilirubin Total 0.8 0.2 - 1.3 mg/dL [facility] Blood Urea 22 7 - 26 mg/dL [facility] Lab Creatinine 0.9 0.4 - 1.1 mg/dL [facility] eGFR Female AA 74 60 - 200 [facility] mL/min/1.73sq [facility] Lab eGFR Female 62 60 - 200 [facility] Non-AA mL/min/1.73sq m [facility] Lab Specimen Blood Performing Organization Address City/State/Zipcode Ph one Number [facility] [address] [place] [address] LABORATORIES [facility] [address] [place] [address] documented in this encounter Visit Diagnoses Not on filedocumented in this encounter Administered Medications Action Date Dose Rate Site Medication Order MAR Action 02/08/2019 1:24 PM FABRICATION MIG WELDER 650 mg acetaminophen (TYLENOL) 650 mg/20.3 mL Given solution 325-650 mg 325-650 mg, Oral, Every 6 hours PRN, mild pain (pain score 1-3), Indications : fever, pain, Starting 02/08/19 at 1259, Do not exceed 4 GM/DAY of acetaminophen. If 65 or older do not exceed 3 GM/DAY. If chronic alcoholic d o not exceed 2 GM/DAY., 02/13/2019 8:35 AM FABRICATION MIG WELDER 3 mg budesonide (ENTOCORT EC) 24 hr capsule 3 Given mg 3 mg, Oral, Daily, Indications: infection, eosinophilic esophagitis, First dose on 02/08/19 at 0900, DO NOT CRUSH OR CHEW., 3 mg Given 02/11/2019 8:22 AM FABRICATION MIG WELDER 3 mg Given 02/08/2019 10:04 AM FABRICATION MIG WELDER 02/13/2019 8:36 AM FABRICATION MIG WELDER 25 mg carvedilol (COREG) tablet 25 mg Given 25 mg, Oral, 2 times daily, First dose on Sat02/10/19 at 2100 25 mg Given 02/12/2019 9:17 PM FABRICATION MIG WELDER 25 mg Given 02/12/2019 4:17 PM FABRICATION MIG WELDER 02/13/2019 11:03 AM FABRICATION MIG WELDER 2 g 100 mL/hr cefTRIAXone (ROCEPHIN) 2 g in sodium New Bag chloride ADDV (NS) 50 mL IVPB 2 g, Intravenous, at 100 mL/hr, Daily, Indications: pneumonia, First dose on Gabby 02/12/19 at 1000, For 7 doses 2 g 100 mL/hr New Bag 02/12/2019 11:22 AM FABRICATION MIG WELDER 02/13/2019 5:12 AM FABRICATION MIG WELDER 125 mcg dofetilide (TIKOSYN) capsule 125 mcg Given 125 mcg, Oral, Every 12 hours, Indications: cardioversion of atrial fibrillation, paroxysmal supraventricular tachycardia, First dos e on 02/08/19 at 0045, DO NOT CRUSH OR CHEW., 125 mcg Given 02/12/2019 4:16 PM FABRICATION MIG WELDER 125 mcg Given 02/11/2019 8:35 PM FABRICATION MIG WELDER 02/13/2019 8:35 AM FABRICATION MIG WELDER 40 mg esomeprazole (NexIUM) capsule 40 mg [...] , 40 mg Given 02/12/2019 4:15 PM FABRICATION MIG WELDER 40 mg Given 02/11/2019 5:16 PM FABRICATION MIG WELDER hydrALAZINE (APRESOLINE) injection 10 m g 10 mg, Intravenous, Every 6 hours PRN, high blood pressure, for SBP > 170 or DBP > 100, Starting Fackler 02/08/19 at 0055 02/12/2019 4:19 PM FABRICATION MIG WELDER 15 mg ketorolac (TORADOL) injection 15 mg Given 15 mg, Intravenous, Every 6 hours PRN, moderate pain (pain score 4-6), severe pain (pain score 7-10), Starting 02/09/19 at 1404, For 5 days 15 mg Given 02/12/2019 12:43 PM FABRICATION MIG WELDER 15 mg Given 02/10/2019 8:12 AM FABRICATION MIG WELDER magnesium sulfate IVPB 2 gram (premix) 2 g, Intravenous, at 25 mL/hr, As needed, standard electroyte replacement , Starting Fackler 02/08/19 at 0327, Replace i n addition [...] (if able to monitor)., 02/13/2019 11:41 AM FABRICATION MIG WELDER 500 mg 200 mL/hr metroNIDAZOLE (FLAGYL) IVPB 500 mg New Bag 500 mg, Intravenous, Administer over 30 Minutes, Daily, Indications: ASPIRATION PNEUMONIA, First dose on Gabby 02/12/19 at 1000, Bag 1 of 2 Avoid Alcohol in Food and Drinks, 500 mg 200 mL/hr New Bag 02/12/2019 11:25 AM FABRICATION MIG WELDER 02/13/2019 12:20 PM FABRICATION MIG WELDER 500 mg 200 mL/hr metroNIDAZOLE (FLAGYL) IVPB 500 mg New Bag 500 mg, Intravenous, Administer over 30 Minutes, Daily, Indications: ASPIRATION PNEUMONIA, First dose on Gabby 02/12/19 at 1000, Bag 2 of 2 Avoid Alcohol in Food and Drinks, 500 mg 200 mL/hr New Bag 02/12/2019 12:05 PM FABRICATION MIG WELDER 02/13/2019 8:36 AM FABRICATION MIG WELDER 10 mg PARoxetine (PAXIL) tablet 10 mg Given 10 mg, Oral, Daily, Indications: anxiet y with depression, First dose on 02/08/19 at 0900 10 mg Given 02/12/2019 4:16 PM FABRICATION MIG WELDER 10 mg Given 02/11/2019 8:24 AM FABRICATION MIG WELDER potassium bicarb-citric acid (EFFER-K) effervescent tablet 20 [...] Infection Onset Date 02/12/2019 02/12/2019 12:39 PM FABRICATION MIG WELDER C.Difficile - Rule Out 02/12/2019 documented as of this encounter
--- OUTSIDE RECORDS SUMMARY | 2019-08-31 20:40 | XMS REPORT | Encounter Summary ---
Author Author [facility] Organization [facility] Address Unknown Phone Unavailable Care Team Providers Care Car Rental Manager Name Role Phone Yulissa Zapata PCP Reason for Visit * Reason Comments Procedure VIRGILIO Encounter Details Care Team Description Date Type Department Tamica Emmanuel RN Procedure (VIRGILIO ) 02/09/2019 Telephone [facility] [address] [place] [address] Social History Date Tobacco Use Types Packs/Day [...] encounter Miscellaneous Notes * Telephone Encounter - Marcia Kelsey RN - 08/31/2019 2:29 PM CDT Pt states she just had an EGD and has a surgery consult for achalasia. She state s she will call us back once she knows the plan. * Telephone Encounter - Marcia Kelsey RN - 08/31/2019 1:53 PM CDT LMOM for pt to call back and schedule procedure. * Telephone Encounter - Anastasiia Pop RN - 08/19/2019 4:59 PM CDT Called pt re: scheduling VIRGILIO. States that her EGD is scheduled 08/27 at [facility] and jose stout told her to contact her machine rigger for clearance to hold warfarin prior to EGD. V/u need for at least 4 weeks of INRs every week > 1.9 prior to ablation so will most likely be late September/early October for VIRGILIO. Will call pt back rusty after 08/27 EGD per pt request to discuss dates. Gave her EPN phone # and transferred her call to EPN to [facility] requesting the clearance. * Telephone Encounter - Yulissa Wilkerson RN - 08/10/2019 3:03 PM CDT Left message on machine w/ request for call back to let us know if she had GI ap pointment at , EGD and if ready to schedule VIRGILIO. * Telephone Encounter - Dayton Daugherty MD - 08/04/2019 9:44 PM CDT All sounds good Thanks bmr * Telephone Encounter - Tamica Forrest RN - 08/04/2019 9:55 AM CDT Left detailed VM for pt. With Dr. Daugherty's recs to have EGD now. If she has a str icture, it would be difficult to pass temp probe or do AIDNE if needed due to miss ed OAC dose. She needs to be on OAC uninterrupted for 3 months post procedure. Derick valencia EP number for pt to call back with any questions. * Telephone Encounter - Dayton Daugherty MD - 07/31/2019 5:01 AM CDT There are several issues here: 1. She needs to undergo EGD if having problems-we typically place a temp probe down esophagus during ablation-may be unable to do so if stricture, we may need AIDEN at some point-a stricture would make this prohibitive 2. Is she having AF causing these symptoms-I wasn't quite clear from descriptio n. The tikosyn was supposed to keep her in SR. That is why I made her priority 3 3. She absolutely cannot hold AC for 3 months after ablation-would be best to h ave EGD now 4. The stricture concerns me-if INR falls out of line 1 month prior to ablation she would need AIDEN and the stricture would prohibit that. She needs to be on X arelto or eliquis 1 month prior to ablation. bmr * Telephone Encounter - Nirav Power LPN - 07/30/2019 11:40 AM CDT Pt called stating GI wants to complete another EGD, and she will probably need t o stop warfarin for that procedure. She questions completing ablation RUSTY prio r to EGD. I explained to her she was recently moved from a level 4 priority to a level 3, but it would still most likely be several month until her procedure. I explained it plan on completing GI evaluations first, but to have that office coordinate with us regarding any potential medication holds. Pt verbalized und erstanding and agreement. She states since starting diltiazem, HR has been bett er, but she is very dizzy with positional changes. I advised to make all moveme nts slow and deliberate to minimize these symptoms, and we would see if Dr Daugherty has any additional recs. BP since starting diltiazem has been 105-130/73-86 and HR has been 70-100, but has occasionally still gotten up to 120. Routed to Dr Daugherty for any additional recs. * Addendum Note - Rachel Hernandez RN - 07/17/2019 3:47 PM CDT Addended by: RACHEL HERNANDEZ on: 07/17/2019 03:47 PM Modules accepted: Orders * Telephone Encounter - Rachel Hernandez RN - 07/17/2019 3:30 PM CDT Called patient with Dr Daugherty's recommendations. Pt states she has an appointment with GI 07/29/2019. Instructed her to start diltiazem 120 mg qd, teaching provid ed and script sent to [facility], med list updated. Explained to her that we woul d change ablation priority from a 4 to a 3, message sent to [facility] lab scheduling. * Telephone Encounter - Dayton Daugherty MD - 07/16/2019 10:23 PM CDT Appears she has already undergone CTA Still needs to see GI Would upgrade to priority 3 Would add diltiazem 120 mg qd to regimen bmr * Telephone Encounter - Angelique Hamilton RN - 07/15/2019 4:35 PM CDT Spoke to pt. Reported that she remained in rhythm the entire time she was in [place]. When she returned in [facility], she has been in and out of rhythm frequently. HR sta ys around 100-110 when in afib. Episodes are lasting several days at a time. Dur ing episodes, she reports dizziness, SOB, lightheaded. Pt is dealing with a good deal of stress from recent of her son, which she knows may be a trigger. Confirmed she is taking all meds as directed. She would love to schedule the abl ation sooner rather than later based on current frequency of episodes and sympto ms BP 145/110 HR 105 * Telephone Encounter - Leslie Marcial RN - 07/15/2019 3:46 PM CDT Pt called. She has returned from [place]. Her son last fall and she came ho me to all of his belongings and is feeling very stressed. She has recently had p rogressively more frequent episodes of AFib and is asking about scheduling ablat ion. Updated pt that she will need to discuss symptoms with [facility] nurses for evalu ation if she needs a visit with him. Pt asked that [facility] nurse team call her. Noti fied [facility] nurse team. * Telephone Encounter - Tracey Gutierrez RN - 05/20/2019 9:55 AM CDT Called and spoke with pt about her VIRGILIO. She is seeing [facility] on 07/28. Discussed d nery June and following back up at beginning of August. Offered to look a t date in August/September to hold and she declined. Will f/u at beginning of August * Telephone Encounter - Yulissa Wilkerson RN - 04/24/2019 1:[address] REFEREE Pt has been unable to make appointment w/ [facility] specialist because he has not re ceived her medical records yet. She has left messages w/ request for call back f rom GI @ [facility] which have gone unreturned thus far. Requested call back to let us know when GI consult scheduled. We will f/u w/ her if we have not heard back fr om her in two weeks. At that time if OV not scheduled we will need to drop June hold for VIRGILIO and hold later date. Patient returning from [place] late May, co nfirmed she is still taking NOAC. FIC COURT REFEREE * Telephone Encounter - Yulissa Wilkerson RN - 04/24/2019 1:[address] REFEREE Left message on machine w/ request for call back to let us know if she has visit scheduled w/ [facility]. [address] [facility] REFEREE * Telephone Encounter - Tamica Correa RN - 04/17/2019 2:[address] REFEREE Called with recommendation from [facility] to schedule appointment with GI provider. St ated that she was going to contact them Saturday( Apr 20)./[place]stowe [address] REFEREE * Telephone Encounter - Dayton Daugherty MD - 04/16/2019 7:[address] REFEREE I would like her GI consult first It may affect anticoagulation bmr FIC [facility] REFEREE * Telephone Encounter - Yulissa Wilkerson RN - 04/13/2019 3:[address] REFEREE Discussed scheduling VIRGILIO w/ [facility] in late June as previously planned. Per pt; she is being referred to GI doctor at [facility] for evaluation of POEM. She will call [facility] n ext Saturday after Dr. Gallegos has time to review her chart. She is unsure which p rocedure should be completed first. V/u I am holding date in late June for VIRGILIO. If plan to proceed, she will need to have four weeks of therapeutic PT/INRs. If GI surgery needed this will need to be considered. V/u will need OV w/ EP prior to proceeding w/ VIRGILIO. I agreed to hold late June date until we hear back from her next week. Pt confirmed she is doing much better on tikosyn. Only occasional ly does she have skipped heart beats compared to before tikosyn having fast hear t beats. FIC COURT REFEREE * Telephone Encounter - Tamica Emmanuel RN - 03/24/2019 11:[address] REFEREE Discussed scheduling VIRGILIO with [facility]. Pt states has been doing well on tikosyn wit h fewer episodes of afib. Pt is still waiting on motility study results. Pt wa nts to schedule at end of June as she is in [place] now for winter. Told pt will call when June schedule built and find a date and pt vu. FIC COURT REFEREE * Telephone Encounter - Tamica Emmanuel RN - 02/09/2019 2:[address] REFEREE error FIC COURT REFEREE documented in this encounter Plan of Treatment Not on filedocumented as of this encounter Visit Diagnoses Diagnosis Paroxysmal atrial fibrillation (HCC) Atrial fibrillation documented in this encounter Additional Health Concerns Last Indicated Resolved Time Infection Onset Date 02/12/2019 02/12/2019 12:[address] REFEREE C.Difficile - Rule Out 02/12/2019 documented as of this encounter
--- OUTSIDE RECORDS SUMMARY | 2019-08-31 20:40 | XMS REPORT | Encounter Summary ---
Author Author [facility] Organization [facility] Address Unknown Phone Unavailable Care Team Providers Care Cherry Dipper Name Role Phone Yulissa Zapata PCP Encounter Details Care Team Description [place] [address] [place] [address] 02/03/2019 Documentation [facility] [address] [place] [address] Social History Date Tobacco Use Types Packs/Day [...]
--- OUTSIDE RECORDS SUMMARY | 2019-08-31 20:40 | XMS REPORT | Encounter Summary ---
Author Author [facility] Organization [facility] Address Unknown Phone Unavailable Care Team Providers Care Can Dryer Name Role Phone Yulissa Zapata PCP Reason for Referral * Surgical (Routine) Referred By Contact Referred To Contact Status Reason Specialty Diagnoses / Procedures Justin De La Torre MD [address] [address] [facility] [address] [place] [address] Closed Gastroenterology Diagnoses Esophageal dysphagia Gastroesophageal reflux disease, esophagitis presence not specified P rocedures Motility study, esophageal Reason for Visit * Reason Comments Appointment Referral request received f rom Chacho Kang TYRE BUILDER for out pt EMS for achalasia and dysphagia. Encounter Details Care Team Description Date Type Department Gretel Elmore RN Appointment (Referral request received f rom Chacho Kang TYRE BUILDER for out pt EMS for achalasia and dysphagia.) 02/03/2019 Telephone [facility] [address] [place] [address] Social History Date Tobacco Use Types Packs/Day [...] encounter Miscellaneous Notes * Telephone Encounter - Licha Madden RN - 02/17/2019 7:50 AM GANG SAWYER Referral request received from Chacho Kang APRN for out pt EMS for achalasia an d dysphagia. LMOM asking pt to call me back at my direct number SAWYER * Telephone Encounter - Licha Madden RN - 02/17/2019 7:47 AM GANG SAWYER ----- Message from Don Kang NP sent at 02/13/2019 5:22 PM GANG SAWYER ----- Regarding: Needs EMS to assess for achalasia Judy, Pt was inpatient and discharged today. She needs workup for achalasia with EMS. She had recent EGD with botox. Is there anyway that she would be able to have EM S scheduled in next few weeks? Thanks, Chacho Crockett SAWYER * Telephone Encounter - Gretel Elmore RN - 02/03/2019 2:08 PM GANG SAWYER Pt's PCP calling to speak with Dr. Balderas or nurse about mutual Pt's recent abn ormal results. Spoke with PCP's nurse. Notes that Pt went to them with issues swallowing. PCP s ent Pt to have an US of her thyroid and the radiologists sent her for barium swa llow which showed severe narrowing. Asked for the reports to be faxed to our in to be reviewed by Dr. Balderas to advise further. 02/09- records received. Dr. Balderas, can you please review the imaging scanned to [employer]? I do see Pt is currently admitted at [facility]. Thanks SAWYER documented in this encounter Plan of Treatment Not on filedocumented as of this encounter Results * Motility study, esophageal (03/16/2019 4:03 PM GANG SAWYER) Narrative Performed At This result has an attachment that is n ot available. documented in this encounter Visit Diagnoses Diagnosis Esophageal dysphagia Dysphagia, pharyngoesophageal phase Gastroesophageal reflux disease, esopha gitis presence not specified documented in this encounter Additional Health Concerns Last Indicated Resolved Time Infection Onset Date 02/12/2019 02/12/2019 12:39 PM GANG SAWYER C.Difficile - Rule Out 02/12/2019 documented as of this encounter
--- OUTSIDE RECORDS SUMMARY | 2019-08-31 20:40 | XMS REPORT | Encounter Summary ---
Author Author [facility] Organization [facility] Address Unknown Phone Unavailable Care Team Providers Care Chief Scientific Officer Name Role Phone Yulissa Zapata PCP Encounter Details Care Team Description Date Type Department France Louis LPN detention current use of antiarrhythmic drug; Atrial flutter, unspecified type (HCC); detention current use of anticoagulant therapy; Paroxysmal atrial fibrillation (HCC) 01/14/2019 Anticoag visit [facility] [address] [place] [address] Social History Date Tobacco Use Types Packs/Day [...] Progress Notes * France Louis LPN - 01/14/2019 8:08 AM DELIVERER OUTSIDE INR checked with home monitor ACH Per [facility] AC Guideline: Afib: Table 7 chart 2.0-2.2: INR 2.1--recommend: cont. ta warfarin 2.5 mg every Mon, Wed, Fri: 1.5 mg all other days: retest in 1 malika lewis 01.20.2019---Called pt no answer left detailed vm regarding INR dosing and rec ommendations. LET VERER OUTSIDE documented in this encounter Plan of Treatment Not on filedocumented as of this encounter Procedures Comments Procedure Name Priority Date/Time Associated Diag nosis PROTIME-INR Routine 01/13/2019 documented in this encounter Results * Protime-INR (01/13/2019) INR 2.1 (B)Comment: INR 2 - 3 2.1--recommend: cont. taking warfarin 2.5 mg every Mon, Wed, Fri: 1.5 mg all other days: retest in 1 week Specimen Blood documented in this encounter Visit Diagnoses Diagnosis detention current use of antiarrhythmic drug Atrial flutter, unspecified type (HCC) terminal system operator current use of anticoagulant therapy Paroxysmal atrial fibrillation (HCC) Atrial fibrillation documented in this encounter
--- OUTSIDE RECORDS SUMMARY | 2019-08-31 20:40 | XMS REPORT | Encounter Summary ---
Author Author [facility] Organization [facility] Address Unknown Phone Unavailable Care Team Providers Care Veterinary Receptionist Name Role Phone Yulissa Zapata PCP Encounter Details Care Team Description Date Type Department 02/09/2019 Imaging [facility] Virtual Revenu e Appointment Location Social History Date Tobacco Use Types Packs/Day [...] Procedure Name Priority Date/Time Associated Diag nosis XR OUTSIDE IMAGES FOR Routine 02/09/2019 Encounte r for PACS 7:05 AM FILING MACHINE OPERATOR consultation documented in this encounter Results * XR Outside images for PACS (02/09/2019 7:05 AM FILING MACHINE OPERATOR) Specimen Performing Organization Address City/State/Zipcode Ph one Number [facility] documented in this encounter Visit Diagnoses Not on filedocumented in this encounter
--- OUTSIDE RECORDS SUMMARY | 2019-08-31 20:40 | XMS REPORT | Encounter Summary ---
Author Author [facility] Organization [facility] Address Unknown Phone Unavailable Care Team Providers Care Med Peds Name Role Phone Yulissa Zapata PCP Reason for Visit * Auth/Cert (Routine) Referred By Contact Referred To Contact Status Reason Specialty Diagnoses / Procedures Rosendo King MD [address] [facility] [place] [address] New Request Procedures Case request operating room: ESOPHAGOGASTRODUOD ENOSCOPY (EGD) Encounter Details Care Team Description Date Type Department Brent Tao MD [address] [facility] [address] [place] [address] ESOPHAGOGASTRODUODENOSCOPY (EGD) [facility] [address] [place], [place] [id number] Social History Date Tobacco Use Types Packs/Day [...] Comments Vital Sign 109/64 02/13/2019 1:36 PM TICKET SALES AGENT Blood Pressure 63 02/13/2019 1:36 PM TICKET SALES AGENT Pulse 36.7 C (98 F) 02/13/2019 11:50 AM TICKET SALES AGENT Temperature 20 02/13/2019 11:50 AM TICKET SALES AGENT Respiratory Rate 95% 02/13/2019 11:50 AM TICKET SALES AGENT Oxygen Saturation - - Inhaled Oxygen Concentration 90.4 kg (199 lb 4.8 oz) 02/13/2019 4:11 AM TICKET SALES AGENT Weight 165.1 cm (5' 5") 02/07/2019 11:28 PM TICKET SALES AGENT Height 33.17 02/07/2019 11:28 PM TICKET SALES AGENT Body Mass Index documented in this encounter Discharge Summaries * Marcus Bush, DO - 02/13/2019 11:21 AM TICKET SALES AGENT [facility] MANAGER PRINTING Hospitalist Discharge Summary Patient Name: Pau Wren [...] PCP was unable to re ach the [facility] GI clinic so she saw a [...] little water so she was transferred to [facility]. During EGD Attempt 02/09/2019, she appeared to aspirate secondary to retained flu id and food in her esophagus. Repeat EGD done 02/10/19 did not find evidence of retained food or stricture. GI suspects achalasia and recommends outpatient man ometry at [facility] as outpatient. She will be started on [...] signed by: Marcus Bush 02/13/2019 11:21 AM ET SALES AGENT documented in this encounter Discharge Instructions * Appointments* Sharon Baxter, ZULLY - 02/11/2019 9:38 AM TICKET SALES AGENT If you need to reschedule your Cardiology appointment, please [facility] at [phone]. Thank you! ET SALES AGENT * Attachments The following attachments cannot be sent through Care Everywhere.* Piperacillin; Tazobactam injection (Frisian) documented in this encounter Medications at Time [...] Waldo Chavarria MD - 02/13/2019 9:01 AM TICKET SALES AGENT GI Progress Note NAME: Pau Wren ADMISSION [...] or edited the final report. READING SITE: [facility] Xr Chest Single View Frontal Result Date: 02/09/2019 1. Findings are suggestive of bronchitis with right basilar pneumonia/aspiration. READING SITE: [facility] ENDOSCOPY EGD 02/10/19 Corrugated mucosa and [...] had dilation at an outside hospital and [place], [place]. Endoscopy report reviewed and jair ent had empiric balloon dilation to 16.5 mm for suspected achalasia at the [facility]. She was also started on Cardizem that she did not tolerate due to hypo tension. EGD done on 02/10 showed no signs of strictures, poor peristalsis may be suggesti ve of achalasia. Due to persistent symptoms, EGD was repeated on 02/12 and Botox injection was don e above the GE junction. [facility] was contacted and patient to be scheduled [...] referral to Dr. El gutierrez at the [facility] to discuss poor oral endoscopic myotomy. * Marcus Bush, - 02/12/2019 12:02 PM TICKET SALES AGENT [facility] MANAGER PRINTING Hospitalist Progress Note Patient Name: Pau Wren [...] Her PCP was unable to reach the [facility] GI clinic so she saw a [...] little water so she was transferred to [facility]. During EGD Attempt 02/09/2019, she appeared to aspirate secondary to retained flu id and food in her esophagus. Repeat EGD done 02/10/19 did not find evidence of retained food or stricture. GI suspects achalasia and recommends outpatient man ometry at [facility] as outpatient. She will be started on [...] index is 33.5 kg/m. Marcus Bush DO [facility] Program Please page through [employer] Messaging using template format. Electronically signed by Marcus Bush 02/12/2019 12:02 PM ET SALES AGENT * Marcus Bush, - 02/11/2019 1:33 PM TICKET SALES AGENT [facility] MANAGER PRINTING Hospitalist Progress Note Patient Name: Pau Wren [...] Her PCP was unable to reach the [facility] GI clinic so she saw a [...] little water so she was transferred to [facility]. During EGD Attempt 02/09/2019, she appeared to aspirate secondary to retained flu id and food in her esophagus. Repeat EGD done 02/10/19 did not find evidence of retained food or stricture. GI suspects achalasia and recommends outpatient man ometry at [facility] as outpatient. She will be started on clear liquid diet and if tolerates, will discharge tomorr ow. Assessment/Plan: * Esophageal dysphagia Concern for esophageal stricture s/p dilatation at outside hospital: -history of eosinophilic esophagitis -failed EGD attempt with possible aspiration 12/2 -repeat EGD 02/10/19 without stricture, clinical concern [...] index is 33.23 kg/m. Marcus Bush DO [facility] Program Please page through [employer] Messaging using template format. Electronically signed by Marcus Bush 02/11/2019 1:33 PM ET SALES AGENT * Waldo Chavarria MD - 02/11/2019 1:16 PM TICKET SALES AGENT GI Progress Note NAME: Pau Wren ADMISSION [...] or edited the final report. READING SITE: [facility] Xr Chest Single View Frontal Result Date: 02/09/2019 1. Findings are suggestive of bronchitis with right basilar pneumonia/aspiration. READING SITE: [facility] ENDOSCOPY EGD 02/10/19 Corrugated mucosa and [...] had dilation at an outside hospital and [place], [place]. There was also reportedly esophage al [...] diet and undergo esophageal motility study at [facility] as an outpatient. If this is not feasible, repeat upper endoscopy with botulinu m toxin injection to lower esophageal sphincter region will be performed tomorro w in an effort to allow hospital discharge. * Kristina Conrad, JOSUE - 02/10/2019 4:07 PM TICKET SALES AGENT Attempt to see patient today x2 this afternoon. Out of room for EGD. Will plan t o see patient in AM. ET SALES AGENT * Marcus Bush, - 02/10/2019 3:22 PM TICKET SALES AGENT [facility] MANAGER PRINTING Hospitalist Progress Note Patient Name: Pau Wren [...] Her PCP was unable to reach the [facility] GI clinic so she saw a [...] little water so she was transferred to [facility]. During EGD Attempt 02/09/2019, she appeared to [...] index is 33.23 kg/m. [facility] Please page through [employer] Messaging using template format. Electronically signed by Marcus Bush 02/10/2019 3:22 PM ET SALES AGENT * Katheryn Aguilar - 02/10/2019 10:50 AM TICKET SALES AGENT Pau was sitting in bed visiting with her daughter Althea and [id number] Maryjane, the room was well lite when [...] Katheryn Aguilar, 02/10/2019 1:31 PM Pager Number: [phone] ET SALES AGENT * Marcus Bush DO - 02/09/2019 12:58 PM TICKET SALES AGENT [facility] MANAGER PRINTING Hospitalist Progress Note Patient Name: Pau Wren [...] Her PCP was unable to reach the [facility] GI clinic so she saw a [...] little water so she was transferred to [facility]. Assessment/Plan: * Esophageal dysphagia Concern for esophageal [...] index is 33.23 kg/m. Marcus Bush DO [facility] Program Please page through [employer] Messaging using template format. Electronically signed by Marcus Bush 02/09/2019 12:58 PM ET SALES AGENT * Jenae Suarez PharmD - 02/09/2019 9:58 AM TICKET SALES AGENT Pharmacist Warfarin Dosing Sign-Off Note Warfarin is no longer an active order. Pharmacy will sign-off on further dosing at this time. If warfarin therapy is to be resumed, an order for Pharmacy to Dos e Warfarin needs to be resubmitted to pharmacy services for further management. Jenae Suarez PharmD Kwame Lauren PharmD - 02/08/2019 11:41 AM TICKET SALES AGENT Pharmacist Warfarin Dosing Progress Note Pau Wren [...] be managed by kaylyn lagunas unless re-consulted. ET SALES AGENT * Lennox Taylor MD - 02/08/2019 6:43 AM TICKET SALES AGENT [facility] Hospitalist - Progress Note Patient Name: Pau Wren Account No: [id number] Date of : 1950 Date of Admission: [...] results (as indicated), current inpatient medications and client technical support associate notes with pertainent findings noted within the [...] details regarding this patients treatment plan. Room: [address] [place] [address] Diet: CLD, NPO at midnight for possible [...] chlorid e in water Dany Briceño MD [facility] Medicine Division Please page through physician paging. . I saw and examined the patient with Dr Dany Briceño MD. I agree with history , exam, assessment and plan as documented in resident's note. I have edited as a ppropriate to reflect my findings. EGD tomorrow and possibly discharge after that ET SALES AGENT * Paul Scott PharmD - 02/08/2019 3:19 AM TICKET SALES AGENT Pharmacist Warfarin Dosing Progress Note Pau Wren [...] be managed by kaylyn lagunas unless re-consulted. ET SALES AGENT documented in this encounter H&P Notes * David Ma MD - 02/12/2019 1:09 PM TICKET SALES AGENT PRE ENDOSCOPIC PROCEDURE HISTORY AND PHYSICAL Procedure: [...] ESOPHAGOGASTRODUODENOSCOPY, USING BIOPSY; Surgeon: Randi Stewart; Location: [facility] GI; Service: Gastroenterology; Laterality: N/A; ESOPHAGOGASTRODUODENOSCOPY (EGD) N/A 02/09/2019 Procedure: ESOPHAGOGASTRODUODENOSCOPY (EGD); Surgeon: Brent Tao MD; Locati on: [facility] GI; Service: Gastroenterology; Laterality: N/A; ESOPHAGOGASTRODUODENOSCOPY (EGD) N/A 02/10/2019 Procedure: ESOPHAGOGASTRODUODENOSCOPY (EGD); Surgeon: Anthony Camilo MD; Location: [facility] GI; Service: Gastroenterology; Laterality: N/A; [...] "stuck" Essential hypertension GERD (gastroesophageal reflux disease) senior living current use of antiarrhythmic drug senior living current use of anticoagulant therapy Mitral regurgitation [...] Anthony Parks MD - 02/10/2019 3:09 PM TICKET SALES AGENT PRE ENDOSCOPIC PROCEDURE HISTORY AND PHYSICAL Procedure: [...] ESOPHAGOGASTRODUODENOSCOPY, USING BIOPSY; Surgeon: Randi Stewart; Location: [facility] GI; Service: Gastroenterology; Laterality: N/A; ESOPHAGOGASTRODUODENOSCOPY (EGD) N/A 02/09/2019 Procedure: ESOPHAGOGASTRODUODENOSCOPY (EGD); Surgeon: Brent Tao MD; Locati on: [facility] GI; Service: Gastroenterology; Laterality: N/A; [...] "stuck" Essential hypertension GERD (gastroesophageal reflux disease) senior living current use of antiarrhythmic drug cableman current use of anticoagulant therapy Mitral regurgitation [...] signed by Anthony Camilo 02/10/2019 3:10 PM ET SALES AGENT * Brent Tao MD - 02/09/2019 10:08 AM TICKET SALES AGENT PRE ENDOSCOPIC PROCEDURE HISTORY AND PHYSICAL Procedure: [...] ESOPHAGOGASTRODUODENOSCOPY, USING BIOPSY; Surgeon: Randi Stewart; Location: [facility]; Service: Gastroenterology; Laterality: N/A; FOOT SURGERY Left [...] "stuck" Essential hypertension GERD (gastroesophageal reflux disease) cableman current use of antiarrhythmic drug cableman current use of anticoagulant therapy Mitral regurgitation [...] signed by Brent Tao 02/09/2019 10:08 AM ET SALES AGENT * Joseline Marrero MD - 02/07/2019 11:45 PM TICKET SALES AGENT [facility] Hospitalist - History & Physical Patient Name: Pau Wren Account No: [id number] Date of : 1950 Date of Admission: [...] Her PCP was unable to reach the [facility] GI clinic so she saw a [...] little water so she was transferred to [facility] from [facility] for further assessment. She denies ENRIQUEZ, CP, SOA, n/v/d/c, abd pain, fever, chills and urinary symptoms. ROS A 10-point review of systems was completed and was negative except as noted abov e. Past Medical History: Diagnosis Date Atrial fibrillation with RVR ([facility]) 09/2018 Noted on 24 Hour Holter Chronic combined systolic and diastolic CHF, NYHA class 3 (HCC) Depression Dilated cardiomyopathy (HCC) Dysphagia hard to take pills- "stuck" Essential hypertension GERD (gastroesophageal reflux disease) senior living current use of antiarrhythmic drug senior living current use of anticoagulant therapy Mitral regurgitation [...] ESOPHAGOGASTRODUODENOSCOPY, USING BIOPSY; Surgeon: Randi Stewart; Location: [facility] GI; Service: Gastroenterology; Laterality: N/A; [...] treatment as noted above. Joseline Marrero MD [facility] Medicine Division Please page through physician paging. . ET SALES AGENT documented in this encounter Consult Notes * Chelsea Delgado MD - 02/09/2019 2:33 PM TICKET SALES AGENT Associated Order(s): IP CONSULT TO CARDIOLOGY [facility] Cardiovascular Consultants Cardiology Consult Date: 02/09/2019 Established [facility] patient: Yes: Provider: Willow Last date [...] NSR. Patient anticoagulated with warfarin managed by [facility]. She met with Dr Daugherty in [...] "stuck" Essential hypertension GERD (gastroesophageal reflux disease) senior living current use of antiarrhythmic drug cableman current use of anticoagulant therapy Mitral regurgitation [...] ESOPHAGOGASTRODUODENOSCOPY, USING BIOPSY; Surgeon: Randi Stewart; Location: [facility] GI; Service: Gastroenterology; Laterality: N/A; ESOPHAGOGASTRODUODENOSCOPY (EGD) N/A 02/09/2019 Procedure: ESOPHAGOGASTRODUODENOSCOPY (EGD); Surgeon: Brent Tao MD; Locati on: [facility] GI; Service: Gastroenterology; Laterality: N/A; [...] bronchitis with right basilar pneumonia/aspiration. READING SITE: [facility] EKG: Normal Sinus Rhythm at 59 [...] Family Another healthcare provider Patient's daughter present ET SALES AGENT * Jenna Borges MD - 02/08/2019 12:22 PM TICKET SALES AGENT Associated Order(s): IP CONSULT TO GASTROENTEROLOGY [facility] GI Inpatient New Consult Note Name: Pua Wren Date:02/08/2019 Hospital Day: 1 Referring Provider: [...] underwent an EGD this past week on Wednesday and had dilation at an outside hospital and [place], [place]. There was also reportedly esophageal spasms [...] "stuck" Essential hypertension GERD (gastroesophageal reflux disease) senior living current use of antiarrhythmic drug cableman current use of anticoagulant therapy Mitral regurgitation [...] ESOPHAGOGASTRODUODENOSCOPY, USING BIOPSY; Surgeon: Randi Stewart; Location: [facility] GI; Service: Gastroenterology; Laterality: N/A; [...] had dilation at an outside hospital and [place], [place]. There was also reportedly esophage al [...] this past week from outside hospital at [facility] in [place], [place] -NPO at midnight -Hold warfarin, if [...] Fellow Disclaimer: This note was dictated using [employer] software and while checked, it m ay have unintentional errors. ATTENDING ADDENDUM I saw and examined the patient with the fellow and agree with the note as below. She has a history of EoE diagnosed by Dr. Balderas. She has recurrence of dyspha sil. No concern for food bolus impaction. Will plan for EGD tomorrow. Jenna Borges MD ET SALES AGENT documented in this encounter Nursing Notes * Lissette Fairbanks RN - 02/12/2019 3:59 PM TICKET SALES AGENT Returned from GI procedure. HR a-fib VR 130 Inc of stool. Extensive clean up in bed on monitor. Cardiac medications given, with pt sitting side of bed. T * Lissette Fairbanks RN - 02/12/2019 10:33 AM TICKET SALES AGENT GI MD at bedside. T * Chelsea Miller RN - 02/09/2019 12:03 PM TICKET SALES AGENT Stabilized, egd stopped after noted food/fluid in esophagus ET SALES AGENT * Kayley Herrera RN - 02/08/2019 9:00 AM TICKET SALES AGENT With AM vitals, O2 noted to be 74%. Patient has gel nailpolish on fingernails & toenails. Difficulty getting accurate read on earlobe. Patient reporting mild S OA but carrying on conversation & appeared to be in no distress. Applied 2 L NC & O2 reading 96%. Updated med-teaching resident of this during morning rounding. Patient resting comfortably, reporting no further SOA. ET SALES AGENT documented in this encounter Miscellaneous Notes * Nursing Discharge - Zohaib Helton RN - 02/13/2019 2:10 PM TICKET SALES AGENT Nursing Discharge Note Patient is stable for discharge. Reviewed discharge instructions and patient ve rbalized understanding, had no further questions, and left the unit in wheel galo ir with staff. Patient traveling home with in personal Vehicle. Patient/family satisfied with progress made towards goals and ready for discharg e. ET SALES AGENT * Care Progression Final DC Note - Dayami Bennett RN - 02/13/2019 11:49 AM TICKET SALES AGENT Final Discharge Note Final Discharge Disposition: 01-Home Self Care Discharge goal and plan is mutually agreed upon by patient Patient will discharge to: home, self care Transportation: pts family Discharge Time: appr 12-1300 Special Instructions: none ET SALES AGENT * End of Shift Note - Rula Ball RN - 02/13/2019 6:02 AM TICKET SALES AGENT End of Shift Summary and Plan of [...] EGD 02/08/19, mo nitor tolerance of CLD. ET SALES AGENT * End of Shift Note - Lissette Fairbanks RN - 02/12/2019 5:22 PM TICKET SALES AGENT End of Shift Summary and Plan of [...] Chau Christy MD - 02/12/2019 2:02 PM TICKET SALES AGENT EGD Report Date: 02/12/2019 2:02 PM Patient Name: PAU PANG (age): 1950 (69) Gender: Female Endoscopist(s): MD David Landrum MD Instrument(s): Scope # 9 - EG - 600WR - Regular - Fujinon([id number]) Anesthesia Provider: Rick Sutherland MD Nurse(s): Neil [...] being detected during the procedure. The patient/patients customer response representative appeared to understand the procedure, the potential complications, and alternatives; had the opportunity to ask questions; and informed consent was obtained. The risk/benefit ratio was deemed appropriate to proceed with the procedure. General Anesthesia was administered by nurse route agent. Continuous pulse oximetry and blood pressure monitoring [...] Rula Ball RN - 02/12/2019 5:39 AM TICKET SALES AGENT End of Shift Summary and Plan of [...] EGD 02/08/19, mo nitor tolerance of CLD. ET SALES AGENT * End of Shift Note - Aislinn Zhong RN - 02/11/2019 5:05 PM TICKET SALES AGENT End of Shift Summary and Plan of [...] EGD 02/08/19, mo nitor tolerance of CLD. ET SALES AGENT * Assessment & Plan Note - Marcus Bush DO - 02/11/2019 1:28 PM TICKET SALES AGENT Associated Problem(s): Aspiration pneumonia (HCC) Secondary to retained esophogeal food: -completed 3/4 days of zosyn, now has diarrhea -change to rocephin / flagyl to see if less affect on gut -repeat procalcitonin trending down ET SALES AGENT * Sign-Off Note - Kristina Conrad NP - 02/11/2019 9:18 AM TICKET SALES AGENT [facility]ovascular Consultants Sign-Off Note Name: Pau Wren CPI: [id number] Date of : 1950 Primary care physician: [...] y.o. female who is currently admitted to [facility] under the Hospitalist service. We were consulted [...] has not required diuresis this admission. 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 ET SALES AGENT * Provider Clarification Response - Marcus Bush DO - 02/11/2019 8:01 AM TICKET SALES AGENT [facility] Query Respons e Note PATIENT: PAU WREN : 1950 ADMIT DATE: 02/07/2019 11:25 PM DISCH DATE: RESPONDING PROVIDER #: [id number] RESPONSE TEXT: The patient has aspiration pneumonia. [...] by: MARCUS VAUGHAN DO 02/11/2019 8:00 AM ET SALES AGENT * End of Shift Note - Tomasa Foreman, ZULLY - 02/11/2019 6:44 AM TICKET SALES AGENT End of Shift Summary and Plan of [...] EGD 02/08/19, mo nitor tolerance of CLD. ET SALES AGENT * End of Shift Note - Kayley Herrera RN - 02/10/2019 7:49 PM TICKET SALES AGENT End of Shift Summary and Plan of [...] EGD 02/08/19, mo nitor tolerance of CLD. ET SALES AGENT * Nutrition Note - Lilliam Lai RD - 02/10/2019 11:50 AM TICKET SALES AGENT Nutrition Assessment [facility] DIAGNOSIS & INTERVENTION: DIAGNOSIS 1 Nutrition Diagnosis [...] Usual Body Weight: 96.2 kg (212 lb) [place] Body Weight: 56.7 kg (125 lb) % [place] Body Weight: 159 % % Weight Loss [...] Estimated Energy Needs Total Energy Estimated Needs: 7171-1617 kcal/day Method for Estimating Needs: MSJ 1.2-1.4 Estimated Protein Needs Total Protein Estimated Needs: 57-68 gm/day Method for Estimating Needs: 1.0-1.2 gm/day Fluid Needs Total Fluid Estimated Needs: per MD MONITORING/EVALUATION: 1. Food & Nutrition Related Hx: Energy Intake 2. Anthropometrics: Weight change 3. Biochemical: Nutrition related labs 4. Nutrition-focused physical findings: GI function, skin Electronically signed by Lilliam Lai 02/10/2019 11:50 AM ET SALES AGENT * Operative Note - Anthony Camilo MD - 02/10/2019 9:00 AM TICKET SALES AGENT EGD Report Date: 02/10/2019 9:00 AM Patient Name: PAU WREN DOB (age): 1950 (69) Gender: Female Endoscopist(s): Anthony Camilo MD Instrument(s): Scope # 3 - EG - 600WR - Regular - Fujinon([id number]) Anesthesia Provider: Lorie Yadav MD Nurse(s): Lorena [...] being detected during the procedure. The patient/patients customer response representative appeared to understand the procedure, the [...] 02/10/2019 4:02:20 PM by Anthony Camilo MD ET SALES AGENT * End of Shift Note - Julio C Pineda RN - 02/10/2019 7:37 AM TICKET SALES AGENT End of Shift Summary and Plan of [...] EGD 02/08/19, mo nitor tolerance of CLD. ET SALES AGENT * Care Progression Initial Assessment - Dayami Bennett RN - 02/09/2019 1:27 PM TICKET SALES AGENT Care Progression Initial Assessment Note Admit for [...] system has been Support System: Spouse/significant other, [facility] Patient has verbalized the following concerns at [...] MD and receiv es their medications from [facility] #[id number] [facility] [address] [address] [facility] Out[facility] [address] [facility] [facility] [address] [facility] [address] DAYAMI BENNETT RN SENIOR ARCHITECT [phone] ET SALES AGENT * End of Shift Note - Kayley Herrera RN - 02/09/2019 12:38 PM TICKET SALES AGENT End of Shift Summary and Plan of [...] EGD 02/08/19, onel dengor tolerance of CLD. ET SALES AGENT * Operative Note - Brent Tao MD - 02/09/2019 9:30 AM TICKET SALES AGENT EGD Report Date: 02/09/2019 9:30 AM Patient Name: PAU PANG (age): 1950 (69) Gender: Female Endoscopist(s): MD David Alonso MD Instrument(s): Scope # 6 - EG - 600WR - Regular - Fujyonas([id number]) Anesthesia Provider: Dayton Hopkins MD Nurse(s): Chelsea [...] being detected during the procedure. The patient/patients customer response representative appeared to understand the procedure, the [...] 12:04:07 PM by MD David Alonso MD ET SALES AGENT * End of Shift Note - Jono Negron RN - 02/09/2019 5:31 AM TICKET SALES AGENT End of Shift Summary and Plan of [...] EGD 02/08/19, mo nitor tolerance of CLD. ET SALES AGENT * End of Shift Note - Kayley Herrera RN - 02/08/2019 5:18 PM TICKET SALES AGENT End of Shift Summary and Plan of [...] tomorrow. Faxed request for medical records to [facility] at [place], [place]. NSR on telemetry. Continuing to monitor. [...] EGD 02/08/19, mo nitor tolerance of CLD. ET SALES AGENT * End of Shift Note - Jono Negron RN - 02/08/2019 4:47 AM TICKET SALES AGENT End of Shift Summary and Plan of [...] Stay Nursing goal for hospital stay: Plan: ET SALES AGENT * Assessment & Plan Note - Marcus Bush DO - 02/08/2019 12:56 AM TICKET SALES AGENT Associated Problem(s): Paroxysmal atrial fibrillation (HCC) Currently in sinus rhythm: -continue dofetilide as PO allows -continue to hold warfarin as needs repeat EGD today ET SALES AGENT * Assessment & Plan Note - Marcus Bush DO - 02/08/2019 12:56 AM TICKET SALES AGENT Associated Problem(s): Essential hypertension Continue coreg ET SALES AGENT * Assessment & Plan Note - Marcus Bush DO - 02/08/2019 12:55 AM TICKET SALES AGENT Associated Problem(s): Depression Continue Paxil ET SALES AGENT * Assessment & Plan Note - Marcus Bush DO - 02/08/2019 12:54 AM TICKET SALES AGENT Associated Problem(s): Esophageal dysphagia Concern for esophageal stricture s/p dilatation at outside hospital: -history of eosinophilic esophagitis -failed EGD attempt with possible aspiration 02/09 -repeat EGD 02/10/19 without stricture, clinical concern for achalasia -failed trial of clear liquid diet -plan Botox today as did not tolerate PO ET SALES AGENT * Hospital Course - Marcus Bush DO - 02/08/2019 12:45 AM TICKET SALES AGENT 69 y.o. female with h/o Afib on [...] Her PCP was unable to reach the [facility] GI clinic so she saw a [...] little water so she was transferred to [facility]. During EGD Attempt 02/09/2019, she appeared to aspirate secondary to retained flu id and food in her esophagus. Repeat EGD done 02/10/19 did not find evidence of retained food or stricture. GI suspects achalasia and recommends outpatient man ometry at [facility] as outpatient. She will be started on clear liquid diet and initially tolerated but then could not keep down even pills. She continues to bring up frothy substance. ET SALES AGENT documented in this encounter Plan of Treatment Not on filedocumented as of this encounter Procedures Comments Procedure Name Priority Date/Time Associated Diag nosis CLOSTRIDIUM DIFFICILE STAT 02/12/2019 TOXIN BY PCR 10:45 AM TICKET SALES AGENT PROTHROMBIN TIME/INR Routine 02/12/2019 1:25 AM TICKET SALES AGENT PROCALCITONIN Routine 02/12/2019 1:25 AM TICKET SALES AGENT COMPLETE BLOOD COUNT Routine 02/12/2019 1:25 AM TICKET SALES AGENT B12/FOLATE Add-On 02/10/2019 10:00 AM TICKET SALES AGENT RENAL PANEL Routine 02/10/2019 9:59 AM TICKET SALES AGENT PROTHROMBIN TIME/INR STAT 02/10/2019 9:59 [address]ET SALES [address] CHEST W CONTRAST Routine 02/10/2019 9:29 AM TICKET SALES AGENT PROCALCITONIN Routine 02/10/2019 2:45 AM TICKET SALES AGENT COMPLETE BLOOD COUNT Routine 02/10/2019 2:45 AM TICKET SALES AGENT XR CHEST SINGLE VIEW Routine 02/09/2019 FRONTAL 12:26 PM TICKET SALES AGENT ESOPHAGOGASTRODUODENOSCOP 02/09/2019 Dysphagia, assess need Y (EGD) 11:40 AM TICKET SALES AGENT for dilation Special Needs Dysphagia, assess need for dilation XR OUTSIDE IMAGES FOR Routine 02/09/2019 Encounte r for PACS 7:05 AM TICKET SALES AGENT consultation XR ABDOMEN OUTSIDE IMAGES Routine 02/09/2019 Enco unter for FOR PACS 7:05 AM TICKET SALES AGENT consultation PROTHROMBIN TIME/INR Routine 02/08/2019 12:14 PM TICKET SALES AGENT ECG Routine 02/08/2019 1:12 AM TICKET SALES AGENT PROTHROMBIN TIME/INR Routine 02/08/2019 1:00 AM TICKET SALES AGENT COMPREHENSIVE METABOLIC Routine 02/08/2019 PANEL 1:00 AM TICKET SALES AGENT CBC AND DIFF (MANUAL DIFF Routine 02/08/2019 IF NECESSARY) 1:00 AM TICKET SALES AGENT documented in this encounter Results * Clostridium Difficile Toxin by PCR (02/12/2019 10:45 AM TICKET SALES AGENT) C difficile Not DetectedComment: NEGATIVE Not Detected [facility] for C. difficile toxin by PCR [facility] l Lab Specimen Stool Performing Organization Address City/State/Zipcode Ph one Number [facility] [address] [place] [address] LABORATORIES [facility] [address] [place] [address] * Prothrombin Time/INR (02/12/2019 1:25 AM TICKET SALES AGENT) Only the most recent of 4 results within the time period is included. Protime 17.6 (H) 11.4 - 15.0 sec [facility] INR 1.5 (H) 0.8 - 1.2 [facility] Specimen Blood Performing Organization Address City/[facility] Ph one Number [address] [address] LABORATORIES [facility] [address] [place] [address] * Complete Blood Count (02/12/2019 1:25 AM TICKET SALES AGENT) Only the most recent of 2 results within the time period is included. WBC 6.08 4.00 - 11.00 TH/uL [facility] Lab RBC 3.27 (L) 4.00 - 5.00 MIL/uL [facility] Lab Hemoglobin 10.7 (L) 12.0 - 15.0 g/dL [facility] Lab Hematocrit 31 (L) 36 - 45 % [facility] MCV 95 80 - 99 fL [facility] MCH 33 27 - 34 pg [facility] MCHC 35 32 - 36 % [facility] RDW 11.9 11.5 - 14.5 % [facility] Platelet Count 225 140 - 400 TH/uL [facility] MPV 10.4 9.4 - 12.3 fL [facility] Nucleated RBCs 0 0 - 0 /100 [facility] Specimen Blood Performing Organization Address City/State/[facility] Ph one Number [address] [address] LABORATORIES [facility] [address] [place] [address] * Procalcitonin (02/12/2019 1:25 AM TICKET SALES AGENT) Only the most recent of 2 results within the time period is included. Procalcitonin 0.51 (H) 0.00 - 0.10 ng/mL [facility] Comment: [facility] Lab PCT Value Interpretation 0.10 - [...] procalcitonin levels. Specimen Blood Performing Organization Address City/[facility] Ph one Number [address] [address] LABORATORIES [facility] [address] [place] [address] * B12/Folate (02/10/2019 10:00 AM TICKET SALES AGENT) VITAMIN B12 306 239 - 931 pg/mL [facility] Folate 9.2 3.4 - 20.0 ng/mL [facility] Specimen Blood Performing Organization Address City/[facility] one Number [address] [address] LABORATORIES [facility] [address] [place] [address] * Renal Panel (02/10/2019 9:59 AM TICKET SALES AGENT) Sodium 138 133 - 147 MEQ/L [facility] Potassium 3.6 3.5 - 5.3 MEQ/L [facility] Chloride 106 96 - 112 MEQ/L [facility] Lab Carbon Dioxide 22 20 - 32 MEQ/L [facility] Anion Gap 10 5 - 17 [facility] Calcium 8.2 (L) 8.4 - 10.5 mg/dL [facility] Glucose 73 70 - 100 mg/dL [facility] Albumin 3.1 (L) 3.5 - 5.0 g/dL [facility] Blood Urea 17 7 - 26 mg/dL [facility] Lab Creatinine 0.8 0.4 - 1.1 mg/dL [facility] Lab eGFR Female AA 85 60 - 200 [facility] mL/min/1.73sq Hospital Lab eGFR Female 71 60 - 200 [facility] Non-AA mL/min/1.73sq [facility] Lab Phosphorus 3.7 2.5 - 4.5 mg/dL [facility] Lab Specimen Blood Performing Organization Address City/State/Zipcode Ph one Number [facility] [address] [place] [address] LABORATORIES [facility] [address] [place] [address] * CT Chest w contrast (02/10/2019 9:29 AM TICKET SALES AGENT) Specimen Impressions Performed At 1. Thickening of [...] or edited the final report. READING SITE: [facility] Narrative Performed At Patient: PAU WREN Sex#: F #: [id number] Natacha #: [id number] Location: [address] [address] Accession# : [id number] Procedure Requested: [id number] CT CHEST W CONTRAST Reason for Exam: [...] Rad Results In - 02/10/2019 12:58 PM TICKET SALES AGENT Patient: PAU WREN Sex#: F #: [id number] Natacha#: [id number] Location: [address] [address] Procedure Requested: [id number] CT CHEST W CONTRAST Reason for Exam: [...] or edited the final report. READING SITE: [facility] Performing Organization Address City/State/Zipcode Ph one Number [place] * XR Chest single view frontal (02/09/2019 12:26 PM TICKET SALES AGENT) Specimen Impressions Performed At 1. Findings are suggestive of bronchitis with right b asilar ALBERT[place]ON pneumonia/aspiration. READING SITE: [facility] Narrative Performed At Patient: PAU WREN Sex#: F #: [id number] Natacha #: [id number] Location: [address] [address] Accession# : [id number] Procedure Requested: [id number] XR CHEST SINGLE VIEW FRONTAL Reason for [...] Rad Results In - 02/09/2019 12:35 PM TICKET SALES AGENT Patient: PAU WREN Sex#: F #: [id number] Natacha#: [id number] Location: [address] [address] Procedure Requested: [id number] XR CHEST SINGLE VIEW FRONTAL Reason for [...] bronchitis with right basilar pneumonia/aspiration. READING SITE: [facility] Performing Organization Address [facility] one Number [facility] * XR Outside images for PACS (02/09/2019 7:05 AM TICKET SALES AGENT) Specimen Performing Organization Address [facility] one Number [facility] * XR Outside images for PACS Abdomen (02/09/2019 7:05 AM TICKET SALES AGENT) Specimen Performing Organization Address [facility] one Number [facility] * Electrocardiogram (ECG) (02/08/2019 1:12 AM TICKET SALES AGENT) QRSd 106 [facility] QT 448 [facility] QTC 444 [facility] ECGHR 59 [facility] ECGPR 192 [facility] Specimen Narrative Performed At [facility] Test Date: 2019-02-08 Pat Name: PAU WREN Department: 56 Room: 10 Gender: Female Data Administrator: [id number] : 1950 Requested By: JOSELINE MARRERO Order Number: [id number] Reading MD: Brent Agarwal Measurements Intervals [place] Rate: 59 P: 39 WI: 192 QRS: 16 QRSD: 106 T: 41 QT: 448 QTc: 444 Interpretive Statements SINUS RHYTHM Electronically Signed On 02-08-2019 10:2 9:19 TICKET SALES AGENT by Brent Agarwal Procedure Note Interface, External Ris In - 02/08/2019 10:29 AM TICKET SALES AGENT [facility] Test Date: 2019-02-08 Pat Name: PAU WREN Department: 56 Room: 7410 Gender: Female Data Administrator: [id number] : 1950 Requested By: JOSELINE MARRERO Order Number: [id number] Reading MD: Brent Agarwal Measurements Intervals [place] Rate: 59 P: 39 WI: 192 QRS: 16 QRSD: 106 T: 41 QT: 448 QTc: 444 Interpretive Statements SINUS RHYTHM Electronically Signed On 02-08-2019 10:29:19 TICKET SALES AGENT by Brent Agarwal Performing Organization Address City/State/Zipcode Ph one Number [facility] * CBC and Diff (manual diff if necessary) (02/08/2019 1:00 AM TICKET SALES AGENT) WBC 6.60 4.00 - 11.00 TH/uL [facility] Lab RBC 3.52 (L) 4.00 - 5.00 MIL/uL [facility] Lab Hemoglobin 11.7 (L) 12.0 - 15.0 g/dL [facility] Hematocrit 34 (L) 36 - 45 % [facility] MCV 97 80 - 99 fL [facility] Lab MCH 33 27 - 34 pg [facility] MCHC 34 32 - 36 % [facility] RDW 12.5 11.5 - 14.5 % [facility] Platelet Count 162 140 - 400 TH/uL [facility] MPV 11.1 9.4 - 12.3 fL [facility] Nucleated RBCs 0 0 - 0 /100 [facility] % Neutrophils 74 45 - 78 % [facility] %Lymphocytes 16 15 - 47 % [facility] %Monocytes 9 0 - 12 % [facility] %Eosinophils 2 0 - 7 % [facility] %Basophils 1 0 - 2 % [facility] % Imm Grans 0 0 - 1 % [facility] # Granulocytes 4.87 1.70 - 6.80 TH/uL [facility] # Lymphocytes 1.02 1.00 - 3.30 TH/uL [facility] # Monocytes 0.56 0.20 - 0.90 TH/uL [facility] # Eosinophils 0.11 0.00 - 0.40 TH/uL [facility] # Basophils 0.03 0.00 - 0.10 TH/uL [facility] Lab Specimen Blood Performing Organization Address City/State/Zipcode Ph one Number [facility] [address] [place] [address] LABORATORIES [facility] [address] [place] [address] * Comprehensive Metabolic Panel (02/08/2019 1:00 AM TICKET SALES AGENT) Sodium 141 133 - 147 MEQ/L [facility] Potassium 3.8 3.5 - 5.3 MEQ/L [facility] Chloride 110 96 - 112 MEQ/L [facility] Carbon Dioxide 24 20 - 32 MEQ/L [facility] Anion Gap 7 5 - 17 [facility] Calcium 8.9 8.4 - 10.5 mg/dL [facility] Glucose 93 70 - 100 mg/dL [facility] Protein Total 6.4 6.0 - 8.2 g/dL [facility] Serum [facility] Lab Albumin 3.5 3.5 - 5.0 g/dL [facility] Alkaline 53 42 - 140 IU/L [facility] Lab Alanine 18 0 - 34 IU/L [facility] Lab e Aspartate 25 15 - 46 IU/L [facility] Lab e Bilirubin Total 0.8 0.2 - 1.3 mg/dL [facility] Blood Urea 22 7 - 26 mg/dL [facility] Lab Creatinine 0.9 0.4 - 1.1 mg/dL [facility] Lab eGFR Female AA 74 60 - 200 [facility] mL/min/1.73sq [facility] Lab eGFR Female 62 60 - 200 [facility] Non- mL/min/1.73sq [facility] Lab Specimen Blood Performing Organization Address City/State/Zipcode Ph one Number [facility] [address] [place] [address] LABORATORIES [facility] [address] [place] [address] documented in this encounter Visit Diagnoses Not on filedocumented in this encounter Administered Medications Action Date Dose Rate Site Medication Order MAR Action 02/08/2019 1:24 PM TICKET SALES AGENT 650 mg acetaminophen (TYLENOL) 650 mg/20.3 mL Given solution 325-650 mg 325-650 mg, Oral, Every 6 hours PRN, mild pain (pain score 1-3), Indications : fever, pain, Starting 02/08/19 at 1259, Do not exceed 4 GM/DAY of acetaminophen. If 65 or older do not exceed 3 GM/DAY. If chronic alcoholic d o not exceed 2 GM/DAY., 02/13/2019 8:35 AM TICKET SALES AGENT 3 mg budesonide (ENTOCORT EC) 24 hr capsule 3 Given mg 3 mg, Oral, Daily, Indications: infection, eosinophilic esophagitis, First dose on 02/08/19 at 0900, DO NOT CRUSH OR CHEW., 3 mg Given 02/11/2019 8:22 AM TICKET SALES AGENT 3 mg Given 02/08/2019 10:04 AM TICKET SALES AGENT 02/13/2019 8:36 AM TICKET SALES AGENT 25 mg carvedilol (COREG) tablet 25 mg Given 25 mg, Oral, 2 times daily, First dose on Sat02/10/19 at 2100 25 mg Given 02/12/2019 9:17 PM TICKET SALES AGENT 25 mg Given 02/12/2019 4:17 PM TICKET SALES AGENT 02/13/2019 11:03 AM TICKET SALES AGENT 2 g 100 mL/hr cefTRIAXone (ROCEPHIN) 2 g in sodium New Bag chloride ADDV (NS) 50 mL IVPB 2 g, Intravenous, at 100 mL/hr, Daily, Indications: pneumonia, First dose on Gabby 02/12/19 at 1000, For 7 doses 2 g 100 mL/hr New Bag 02/12/2019 11:22 AM TICKET SALES AGENT 02/13/2019 5:12 AM TICKET SALES AGENT 125 mcg dofetilide (TIKOSYN) capsule 125 mcg Given 125 mcg, Oral, Every 12 hours, Indications: cardioversion of atrial fibrillation, paroxysmal supraventricular tachycardia, First dos e on 02/08/19 at 0045, DO NOT CRUSH OR CHEW., 125 mcg Given 02/12/2019 4:16 PM TICKET SALES AGENT 125 mcg Given 02/11/2019 8:35 PM TICKET SALES AGENT 02/13/2019 8:35 AM TICKET SALES AGENT 40 mg esomeprazole (NexIUM) capsule 40 mg [...] , 40 mg Given 02/12/2019 4:15 PM TICKET SALES AGENT 40 mg Given 02/11/2019 5:16 PM TICKET SALES AGENT hydrALAZINE (APRESOLINE) injection 10 m g 10 mg, Intravenous, Every 6 hours PRN, high blood pressure, for SBP > 170 or DBP > 100, Starting [place] 02/08/19 at 0055 02/12/2019 4:19 PM TICKET SALES AGENT 15 mg ketorolac (TORADOL) injection 15 mg Given 15 mg, Intravenous, Every 6 hours PRN, moderate pain (pain score 4-6), severe pain (pain score 7-10), Starting 02/09/19 at 1404, For 5 days 15 mg Given 02/12/2019 12:43 PM TICKET SALES AGENT 15 mg Given 02/10/2019 8:12 AM TICKET SALES AGENT magnesium sulfate IVPB 2 gram (premix) 2 g, Intravenous, at 25 mL/hr, As needed, standard electroyte replacement , Starting [place] 02/08/19 at 0327, Replace i n addition [...] (if able to monitor)., 02/13/2019 11:41 AM TICKET SALES AGENT 500 mg 200 mL/hr metroNIDAZOLE (FLAGYL) IVPB 500 mg New Bag 500 mg, Intravenous, Administer over 30 Minutes, Daily, Indications: ASPIRATION PNEUMONIA, First dose on Gabby 02/12/19 at 1000, Bag 1 of 2 Avoid Alcohol in Food and Drinks, 500 mg 200 mL/hr New Bag 02/12/2019 11:25 AM TICKET SALES AGENT 02/13/2019 12:20 PM TICKET SALES AGENT 500 mg 200 mL/hr metroNIDAZOLE (FLAGYL) IVPB 500 mg New Bag 500 mg, Intravenous, Administer over 30 Minutes, Daily, Indications: ASPIRATION PNEUMONIA, First dose on Gabby 02/12/19 at 1000, Bag 2 of 2 Avoid Alcohol in Food and Drinks, 500 mg 200 mL/hr New Bag 02/12/2019 12:05 PM TICKET SALES AGENT 02/13/2019 8:36 AM TICKET SALES AGENT 10 mg PARoxetine (PAXIL) tablet 10 mg Given 10 mg, Oral, Daily, Indications: anxiet y with depression, First dose on 02/08/19 at 0900 10 mg Given 02/12/2019 4:16 PM TICKET SALES AGENT 10 mg Given 02/11/2019 8:24 AM TICKET SALES AGENT potassium bicarb-citric acid (EFFER-K) effervescent tablet 20 [...] Infection Onset Date 02/12/2019 02/12/2019 12:39 PM TICKET SALES AGENT C.Difficile - Rule Out 02/12/2019 documented as of this encounter
--- OUTSIDE RECORDS SUMMARY | 2019-08-31 20:40 | XMS REPORT | Encounter Summary ---
Author Author [facility] Organization [facility] Address Unknown Phone Unavailable Care Team Providers Care Product Development Assistant Name Role Phone Yulissa Zapata PCP Encounter Details Care Team Description Date Type Department 02/09/2019 Imaging [facility] Virtual Revenu e Appointment Location [...] Name Priority Date/Time Associated Diag nosis XR ABDOMEN OUTSIDE IMAGES Routine 02/09/2019 Enco unter for FOR PACS 7:05 AM FLIGHT CREW ORDNANCEMAN consultation documented in this encounter Results * XR Outside images for PACS Abdomen (02/09/2019 7:05 AM FLIGHT CREW ORDNANCEMAN) Specimen Performing Organization Address City/State/Zipcode Ph one Number [place] documented in this encounter Visit Diagnoses Not on filedocumented in this encounter
--- OUTSIDE RECORDS SUMMARY | 2019-08-31 20:40 | XMS REPORT | Encounter Summary ---
Author Author [facility] Organization [facility] Address Unknown Phone Unavailable Care Team Providers Care Marketing Director Name Role Phone Yulissa Zapata PCP Reason for Visit * Reason Comments Results EGD Results Encounter Details Care Team Description Date Type Department Khadra Bourne LPN Results (EGD Results) 01/14/2019 Telephone [facility] [id number] [facility] [address] [place] [address] Social History Date Tobacco Use [...] encounter Miscellaneous Notes * Telephone Encounter - Khadra Bourne LPN - 01/15/2019 1:05 PM CERTIFIED TRAVEL COUNSELOR Spoke w/ pt to give results of EGD "Eosinophillic Esophagitis: The biopsies obtained during your recent upper endos copy detected changes of eosinophilic esophagitis. This is a benign condition a nd this uncommon disorder requires medical treatment. Since you are already on Nexium and continue to have symptoms, next step would be a 6 weeks course of [place] esonide viscous slurry 2 mg daily (compounded by mixing four 0.5 mg/2 mL Pulmico rt Respules with Splenda; creating a volume of approximately 8 mL). Do not eat o r drink for 30 minutes after taking the budesonide suspension." Will reach out to RN to get script taken care of. IFIED TRAVEL COUNSELOR * Telephone Encounter - Khadra Bourne LPN - 01/14/2019 11:[address]. Balderas, Pt is asking for EGD results. Please advise, Thanks, Khadra IFIED TRAVEL COUNSELOR documented in this encounter Plan of Treatment Not on filedocumented as of this encounter Visit Diagnoses Not on filedocumented in this encounter
--- OUTSIDE RECORDS SUMMARY | 2019-08-31 20:40 | XMS REPORT | Encounter Summary ---
Author Author [facility] Organization [facility] Address Unknown Phone Unavailable Care Team Providers Care Reliner Name Role Phone Yari Zapataa PCP Reason for Visit * Reason Comments Procedure VIRGILIO Encounter Details Care Team Description Date Type Department Yulissa Wilkerson RN Procedure (VIRGILIO) [facility]/07[facility] [place] [address] Social History Date Tobacco Use Types Packs/Day [...] Miscellaneous Notes * Telephone Encounter - Tamica Emmanuel RN - 01/08/2019 3:23 PM CDT Discussed scheduling VIRGILIO and explained BMR schedule full thru end of year. Pt i s anxious to schedule and would like call with cx if has weeks notice. Pt and f amily moving to [place] for winter but she will return for ablation at any time. * Telephone Encounter - Yulissa Wilkerson RN - 01/07/2019 5:17 PM CDT Spoke briefly w/ patient about scheduling VIRGILIO w/ BMR. She has a house full of co mpany and would like a call back tomorrow. She has been in SR last 3 weeks. documented in this encounter Plan of Treatment Not on filedocumented as of this encounter Visit Diagnoses Not on filedocumented in this encounter
--- OUTSIDE RECORDS SUMMARY | 2019-08-31 20:40 | XMS REPORT | Encounter Summary ---
Author Author [facility] Organization [facility] Address Unknown Phone Unavailable Care Team Providers Care Aviation Neuropsychologist Name Role Phone Yulissa Zapata PCP Reason for Visit * Reason Comments f/u when? f/u when? Appointment referral request received f rom Chacho Kang APRN Encounter Details Care Team Description Date Type Department Licha Madden RN f/u when? (f/u when?); Appointment (refe rral request received from Chacho Kang APRN) 01/15/2019 Telephone [facility] [address] [place] [address] Social History Date Tobacco Use Types Packs/Day [...] Telephone Encounter - Licha Madden RN - 02/19/2019 9:46 AM FAIRING WORKER Pt has been scheduled for EMS at [facility] on 03/16/19 at 1300 with 1230 check in. Procedure instructions reviewed and mailed to pt. Orders faxed to [facility] GI lab ING WORKER * Telephone Encounter - Licha Madden RN - 01/15/2019 1:[address] Balderas, We ended up sending her Rx for budesonide slurry to [facility]. Pt will be leaving for [place] within in the next couple of days. Most likely t hey will be there until spring (June). I've asked the pt to call us in 6 wks with a progress report. Do you need for her to come back at the end of 6 wks for repeat EGD or a clinic visit? Pt stated she would be able to fly back home if you needed her to. Thx so much, Judy ANDREA ING WORKER documented in this encounter Plan of Treatment Not on filedocumented as of this encounter Visit Diagnoses Not on filedocumented in this encounter Additional Health Concerns Last Indicated Resolved Time Infection Onset Date 02/12/2019 02/12/2019 12:39 PM FAIRING WORKER C.Difficile - Rule Out 02/12/2019 documented as of this encounter
--- OUTSIDE RECORDS SUMMARY | 2019-08-31 20:40 | XMS REPORT | Encounter Summary ---
Author Author [facility] Organization [facility] Address Unknown Phone Unavailable Care Team Providers Care Foam Rubber Curer Name Role Phone Yulissa Zapata PCP Reason for Visit * Reason Comments INR Reminder 1st Attempt Encounter Details Care Team Description Date Type Department Benita Nelson, FABRIC WORKER FITTER [address] [place] [address] [phone] INR Reminder (1st Attempt ) 01/12/2019 Telephone [facility] [address] [place] [address] Social History Date Tobacco Use Types Packs/Day [...] * Telephone Encounter - Nilson Holguin - 01/12/2019 4:17 PM ELECTROPHYSIOLOGY SCIENTIST Called pt Left Detail Message on VML for a return call in regards to INR Reminde r being past due. TQ TROPHYSIOLOGY SCIENTIST documented in this encounter Plan of Treatment Not on filedocumented as of this encounter Visit Diagnoses Not on filedocumented in this encounter
--- OUTSIDE RECORDS SUMMARY | 2019-08-31 20:40 | XMS REPORT | Encounter Summary ---
Author Author [facility] Organization [facility] Address Unknown Phone Unavailable Care Team Providers Care Utility Service Worker Name Role Phone Yulissa Zapata PCP Reason for Visit * Auth/Cert (Routine) Referred By Contact Referred To Contact Status Reason Specialty Diagnoses / Procedures Rosendo King MD [address] [facility] [place] [address] New Request Procedures Case request operating room: ESOPHAGOGASTRODUOD ENOSCOPY (EGD) Encounter Details Care Team Description Date Type Department SandeepRaúlDaytonDO [address] [place], [place] [id number] Brent Tao MD [address] [facility] [address] [place] [address] [phone] 02/09/2019 [facility] [address] [place], [place] [id number] Anesthesia Record Responsible Anesthesiologist Anesthesia Start Time Anesthesi a Stop Time Procedure Name Dayton HopkinsDO 02/09/19 1140 02/09/19 1208 ESOPHAGOGASTRODUODENOSCOP Y (EGD) (N/A ) Date Time Event Comment 1128 1133 AN Equip Check 1140 In room 1140 An Start 1141 An Start Data 1141 Oxygen per nasal cannula 1142 Patient Positioned Self 1143 Sedation begin 1144 Spontaneous respirations 1151 Anesthesia Ready 1151 Procedure start - Primary Case 1155 Procedure stop - Primary case 1155 Quick Note After beginning sed ation patient began coughing with subsequent SpO2 desaturation to upper 60's. Oxygen was increased to 10L/min, monitors verified to be working correctly and ja w thrust was applied to patient with mild improvement in saturation. Endosc ope was advanced into the mouth revealing emesis in the posterior oroph arynx. Decision was made to abort the procedure and wake the patient up. Chest X ray ordered. 1203 an stop data 1203 Transported with O2 1205 Out of Room 1208 Handoff I completed my SBAR handoff to the receiving nurse in the PACU/ICU/OB Patient and PACU/ICU/OB nurse identifie d Discussed patient medical history Discussed procedure Reviewed intraopera tive anesthetic management and issues/concerns Discussed expectation f or early post-procedure period Questions from PACU/ICU/OB team address ed 1208 An Stop Meds Name Total lidocaine 1% (PF) 50 mg propofol 10mg/mL 250 mg phenylepherine 0.1mg/mL 300 mcg lactated ringers 550 mL * Name Cell Saver Blood Intake O2 N2O Air EtSEVO EtISO EtDES EtN2O * No blood administrations on file. Removal Type Details Placement Peripheral Date: 02/08/19; Time: 49; Size 02/08 0050 by Jono IV (gauge): 20 G; Orientation: Left; Cecille garner RN Location: Antecubital documented in this encounter Social History Date [...] Miscellaneous Notes * Anesthesia Postprocedure Evaluation - Dayton Hopkins DO - 02/09/2019 1:58 PM PRESS SET UP PERSON Anesthesia Post Evaluation Procedure(s):ESOPHAGOGASTRODUODENOSCOPY (EGD) Surgeon: Brent Tao MD Patient Evaluated in: PACU Patient Participation: complete - patient participated Level of Consciousness: awake and alert , with adequate pain management. Airway Patency: patent Respiratory Status: spontaneous ventilation Cardiovascular Status: hemodynamically stable Postoperative Hydration: euvolemic Postop Nausea/Vomiting: controlled Anesthetic Complications: Yes (aspirated following beginning MAC sedation) Appropriate for discharge from anesthesia care, no apparent anesthesia related c omplication Patient presenting for EGD due to dysphagia began coughing and vomiting after be ginning sedation. Endoscopy showed gastric contents in oropharynx and procedure was aborted. CXR suggestive of aspiration. Plan to repeat procedure tomorrow with OETT. ANE Post Eval Vitals Most Recent Value BP (!) 147/77 filed at 02/09/2019 1245 Pulse 67 filed at 02/09/2019 1245 Temp 37.4 C (99.4 F) filed at 02/09/2019 1207 Resp 17 filed at 02/09/2019 1245 SpO2 96 % filed at 02/09/2019 1245 S SET UP PERSON * Anesthesia Preprocedure Evaluation - Dayton Hopkins DO - 02/09/2019 10:39 AM PRESS SET UP PERSON Anesthesia Evaluation Patient summary reviewed No history of anesthetic complications History of alcohol use. No history of tobacco use use. Airway Mallampati: II TM distance: >3 FB Neck ROM: full Adequate mouth opening No prominent facial hair No mandibular prognathism past upper incisors. Dental - normal exam Pulmonary - normal exam Breath sounds clear to auscultation, Lung sounds: normal, (+) sleep apnea , Cardiovascular Heart sounds: normal Rhythm: regular Rate: normal (+) hypertension, hyperlipidemia, , systolic, diastolic and chronic CHF NYHA Classification: III, dysrhythmias atrial fib/flutter, (-) murmur Comment: H/o dilated cardiomyopathy Echo: 11/24/18 1. Normal LV and RV size and systolic function. LVEF estimated at 65%, 2. No significant valvular abnormalities. 3. Spontaneous echocontrast in the LA appendage but no visible thrombus. Neuro/Psych (-) CVA, seizures GI/Hepatic/Renal (+) GERD, (-) no chronic renal disease Endo/Other (-) diabetes mellitus, hypothyroidism Abdominal Obstetrics HEENT Musculoskeletal - negative ROS Hematology/Oncology (+) anemia, taking anticoagulant medication as prescribed: for procedure, Most Recent Result within the last 7 days Lab Units 02/08/19 0100 WBC TH/uL 6.60 HEMOGLOBIN g/dL 11.7* HEMATOCRIT % 34* PLATELET COUNT TH/uL 162 Most Recent Result within the last 7 days Lab Units 02/08/19 0100 SODIUM MEQ/L 141 POTASSIUM MEQ/L 3.8 CHLORIDE MEQ/L 110 CARBON DIOXIDE MEQ/L 24 BLOOD UREA NITROGEN mg/dL 22 CREATININE mg/dL 0.9 GLUCOSE mg/dL 93 CALCIUM mg/dL 8.9 INR 1.7 Anesthesia Plan ASA 3 Type: MAC () Plan to include: IV induction and spontaneous ventilation Plan discussed with anesthesiologist medical assistant cardiology and resident. Anesthetic plan and risks discussed with patient. Planning Lead utilized: No Recovery plan: PACU Risk factors for PONV: female PONV Risk: low Plan for PONV Prophylaxis to include: propofol infusion S SET UP PERSON documented in this encounter Plan of Treatment Not on filedocumented as of this encounter Visit Diagnoses Not on filedocumented in this encounter Administered Medications Action Date Dose Rate Site Medication Order MAR Action 02/09/2019 11:34 AM PRESS SET UP PERSON 50 mL/hr lactated ringers infusion New Bag Continuous PRN, Starting 02/09/19 at 1134, Anesthesia Intra-op 02/09/2019 11:43 AM PRESS SET UP PERSON 50 mg lidocaine (pf) (XYLOCAINE-MPF) 10 mg/mL Given (1 %) injection As needed, Starting 02/09/19 at 1143 , Anesthesia Intra-op 02/09/2019 12:02 PM PRESS SET UP PERSON 100 mcg phenylephrine HCl in 0.9% NaCl Given (NEOSYNEPHRINE) 1 mg/10 mL (100 mcg/mL) injection As needed, Starting 02/09/19 at 1149 , Anesthesia Intra-op 100 mcg Given 02/09/2019 11:56 AM PRESS SET UP PERSON 100 mcg Given 02/09/2019 11:49 AM PRESS SET UP PERSON 02/09/2019 11:52 AM PRESS SET UP PERSON 80 mg propofol (DIPRIVAN) injection Given As needed, Starting 02/09/19 at 1143 , Anesthesia Intra-op 50 mg Given 02/09/2019 11:49 AM PRESS SET UP PERSON 50 mg Given 02/09/2019 11:46 AM PRESS SET UP PERSON documented in this encounter
--- OUTSIDE RECORDS SUMMARY | 2019-08-31 20:41 | XMS REPORT | Encounter Summary ---
Author Author [facility] Organization [facility] Address Unknown Phone Unavailable Care Team Providers Care Box Tender Name Role Phone Benny Yulissa PCP Reason for Referral * MRI/CAT/PET Scan (Routine) Referred By Contact Referred To Contact Status Reason Specialty Diagnoses / Procedures Dayton Daugherty MD [address] [facility] [address] [place] [address] [facility] [address] [place] [address] Closed Cardiology Diagnoses Paroxysmal atrial fibrillation (HCC) P rocedures CV CT Heart pre Electrophysiology Reason for Visit * MRI/CAT/PET Scan (Routine) Referred By Contact Referred To Contact Status Reason Specialty Diagnoses / Procedures Dayton Daugherty MD [address] [facility] [address] [place] [address] [facility] [address] [place] [address] Closed Cardiology Diagnoses Paroxysmal atrial fibrillation (HCC) P rocedures CV CT Heart pre Electrophysiology Encounter Details Care Team Description Date Type Department Dayton Daugherty MD [address] [facility] [address] [place] [address] [phone] Parox[facility]mal [facility] (HCC[facility] [address] [place] [address] Social History Date Tobacco Use Types Packs/Day [...] history available. documented as of this encounter Medications at Time of Discharge Start Date End Date Medication Sig Dispensed Refills BIOTIN ORALIndications: Take 10,000 0 vitamin supplement mcg by mouth daily. 11/24/2018 carvedilol (COREG) 25 MG Take 1 tablet 60 tablet 11 tabletIndications: (25 mg total) chronic heart failure by mouth 2 (two) times a day. 09/04/2018 furosemide (LASIX) 40 MG Take 40 [...] every supraventricular 12 (twelve) tachycardia hours. 02/13/2019 esomeprazole (NEXIUM) 40 Take 40 mg by 0 MG capsuleIndications: mouth daily. gastroesophageal reflux disease 09/04/2018 04/07/2019 potassium chloride Take 10 mEq 0 (KLOR-CON) 10 MEQ CR by mouth tabletIndications: daily. hypokalemia prevention documented as of this encounter Plan of Treatment Not on filedocumented as of this encounter Procedures Comments Procedure Name Priority Date/Time Associated Diag nosis CV CT CORONARIES PRE Routine 01/05/2019 Paroxysma l atrial ELECTROPHYSIOLOGY 9:18 AM CDT fibrillation (HCC) documented in this encounter Results * CV CT Heart pre Electrophysiology (01/05/2019 9:18 AM CDT) Specimen Narrative Performed At [facility] NAME: PAU MCCABE : [id number] GENDER: F ACCOUNT NUM: [id number] TEST: CTA of Pulmonary Veins With Con jamie TEST DATE: TEST LOCATION: [facility] INPATIENT: Outpatient REFERRING PHYSICIAN: Dayton Daugherty MD REASON FOR TEST: Pulmonary vein isola tion/Afib INDICATION FOR TEST: N/A Procedure: The patient was studied on our Siemens Dual Source Force scanner. A total of 75 cc of Omnipaque 350 was use d for contrast with a 50 cc saline chaser. The total dose length product u sed was 108, total mAs was 1553. 3-dimensional reconstruction was performed post processing. TECHNIQUE: N/A INTERPRETATION: PULMONARY VEINS: Four pulmonary veins are noted to drain into the left atrium in usual fashion with s uperior and inferior pulmonary veins noted on both the right and left sides. The pulmonary veins are widely patent at their entry point into the left atrium. The left atrial appendage fills well with contrast in both the early and delayed image sets. The esophagus runs posterior to the left atrium and the left inferior pulmo nary vein. There does appear to be a hiatal hernia. In addition, the esophageal mucosa appears thickened. The coronary arteries arise normally from the ascending aorta. Co ronary calcification is noted. No further evaluation of the pulmonary art eries was performed in this study. IMAGE QUALITY: N/A NON CONTRAST FINDINGS: N/A CONTRAST FINDINGS: N/A Other Comments: N/A CONCLUSION: 1. Four pulmonary veins are noted to drain into the left atrium in usual fashion with superior and infe rior pulmonary veins noted on both the right and left sides. The pulmonary v eins are widely patent at their entry point into the left atrium. 2. The left atrial appendage fills we ll with contrast in both the early and delayed image sets. 3. The esophagus runs posterior to th e left atrium and the left inferior pulmonary vein. There does appear to be a hiatal hernia. In addition, the esophageal mucosa appears thickened. Given the thickening noted of the lower end of the esophagus, would recommend followup for this. 4. The coronary arteries arise normal ly from the ascending aorta. Coronary calcification is noted. No further ev aluation of the pulmonary arteries was performed in this study. OVERREAD: Fredo Padron MD [address] [facility], [address] [place] [address] D: 2019-01-06 00:00:00.0 T: 2019-01-06 09:00:13.0 PROVIDER APPROVAL DATETIME: 2018-12-10 09:26:43.0 Procedure Note Interface, External Ris In - 01/06/2019 11:38 AM CDT NAME: PAU MCCABE : [id number] GENDER: F ACCOUNT NUM: [id number] TEST: CTA of Pulmonary Veins With Contrast TEST DATE: TEST LOCATION: [facility] INPATIENT: Outpatient REFERRING PHYSICIAN: Dayton Daugherty MD REASON FOR TEST: Pulmonary vein isolation/Afib INDICATION FOR TEST: N/A Procedure: The patient was studied on our Siemens Dual Source Force scanner. A total of 75 cc of Omnipaque 350 was used for contrast with a 50 cc saline chaser. The total dose length product used was 108, total mAs was 1553. 3- dimensional reconstruction was performed post processing. TECHNIQUE: N/A INTERPRETATION: PULMONARY VEINS: Four pulmonary veins are noted to drain into the left atrium in usual fashion with superior and inferior pulmonary veins noted on both the right and left sides. The pulmonary veins are widely patent at their entry point into the left atrium. The left atrial appendage fills well with contrast in both the early and delayed image sets. The esophagus runs posterior to the left atrium and the left inferior pulmonary vein. There does appear to be a hiatal hernia. In addition, the esophageal mucosa appears thickened. The coronary arteries arise normally from the ascending aorta. Coronary calcification is noted. No further evaluation of the pulmonary arteries was performed in this study. IMAGE QUALITY: N/A NON CONTRAST FINDINGS: N/A CONTRAST FINDINGS: N/A Other Comments: N/A CONCLUSION: 1. Four pulmonary veins are noted to drain into the left atrium in usual fashion with superior and inferior pulmonary veins noted on both the right and left sides. The pulmonary veins are widely patent at their entry point into the left atrium. 2. The left atrial appendage fills well with contrast in both the early and delayed image sets. 3. The esophagus runs posterior to the left atrium and the left inferior pulmonary vein. There does appear to be a hiatal hernia. In addition, the esophageal mucosa appears thickened. Given the thickening noted of the lower end of the esophagus, would recommend followup for this. 4. The coronary arteries arise normally from the ascending aorta. Coronary calcification is noted. No further evaluation of the pulmonary arteries was performed in this study. OVERREAD: Fredo Padron MD [address] [facility], [address] [place] [address] D: 2019-01-06 00:00:00.0 T: 2019-01-06 09:00:13.0 PROVIDER APPROVAL DATETIME: 2019-01-06 09:26:43.0 Performing Organization Address City/State/Zipcode Ph one Number [facility] documented in this encounter Visit Diagnoses Diagnosis Paroxysmal atrial fibrillation (HCC) Atrial fibrillation documented in this encounter Administered Medications Action Date Dose Rate Site Medication Order MAR Action 01/05/2019 9:18 AM CDT 75 mL iohexol (OMNIPAQUE) 350 mg iodine/mL Given injection 75 mL 75 mL, Intravenous, Once in imaging, contrast, Starting 01/05/19 at 0908 , For 1 dose documented in this encounter
--- OUTSIDE RECORDS SUMMARY | 2019-08-31 20:41 | XMS REPORT | Encounter Summary ---
Author Author [facility] Organization [facility] Address Unknown Phone Unavailable Care Team Providers Care Odd Shoe Examiner Name Role Phone Yulissa Zapata PCP Encounter Details Care Team Description Date Type Department Mayte Diaz RN 12/25/2018 [facility] [address] [facility] [address] [place] [address] Social History Date Tobacco Use Types Packs/Day Years Used Never Smoker Smokeless Tobacco: Never Used Drinks/Week oz/Week Comments Alcohol Use Not Currently Sex Assigned at Date Recorded Not on file Industry Job Start Date Occupation Not on file Not on file Not on file Travel End Travel History Travel Start No recent travel history available. documented as of this encounter Plan of Treatment Not on filedocumented as of this encounter Visit Diagnoses Diagnosis Dilated cardiomyopathy (HCC) Other primary cardiomyopathies documented in this encounter
--- OUTSIDE RECORDS SUMMARY | 2019-08-31 20:41 | XMS REPORT | Encounter Summary ---
Author Author [facility] Organization [facility] Address Unknown Phone Unavailable Care Team Providers Care Electrophysiology Technologist Name Role Phone Yulissa Zapata PCP Reason for Visit * Reason Comments Appointment reschedule EGD Encounter Details Care Team Description Date Type Department Liss Golden MA Appointment (reschedule EGD) 12/22/2018 Telephone [facility] [address] [facility] [address] [place] [address] Social History Date Tobacco Use [...] encounter Miscellaneous Notes * Telephone Encounter - Liss Golden MA - 12/22/2018 9:15 AM CDT Left a message on patient phone [phone] to reschedule EGD Dx: Dysphagia at the [facility] with any provider, Referral in chart. Patient was scheduled at [facility] with Dr. Christy but doesn't want to drive andrae t far. documented in this encounter Plan of Treatment Not on filedocumented as of this encounter Visit Diagnoses Not on filedocumented in this encounter
--- OUTSIDE RECORDS SUMMARY | 2019-08-31 20:41 | XMS REPORT | Encounter Summary ---
Author Author [facility] Organization [facility] Address Unknown Phone Unavailable Care Team Providers Care Nurse Wound Name Role Phone Yulissa Zapata PCP Encounter Details Care Team Description Date Type Department Yulissa Zapata MD [address] [place] [address] Dr Caballero [address] [place] [address] terminal system operator current use of antiarrhythmic drug 01/01/[facility] [address] [facility] [address] [place] [address] Social History Date Tobacco Use Types Packs/Day [...] Progress Notes * Ayana Sánchez LPN - 01/01/2019 2:37 PM CDT Spoke with patient. INR results and recommendations given per [facility] Table 7. Will recheck PT/INR on 2019. Patient was instructed to seek immediate me dical attention for s/s of thrombosis or new pain/redness/swelling in legs, ches t pain or trouble breathing, blurry vision or other visual changes, or slurred s peech. Precautions were given at this time. Patient repeated these instructions, and verbalizes understanding. documented in this encounter Plan of Treatment Not on filedocumented as of this encounter Procedures Comments Procedure Name Priority Date/Time Associated Diag nosis PROTIME-INR Routine 01/01/2019 documented in this encounter Results * Protime-INR (01/01/2019) INR 1.9Comment: Continue current 2 - 3 dose at 2.5mg Mon/Wed/Fri; 1.5mg all other. Retest on 2019. Specimen Blood documented in this encounter Visit Diagnoses Diagnosis correction current use of antiarrhythmic drug documented in this encounter
--- OUTSIDE RECORDS SUMMARY | 2019-08-31 20:41 | XMS REPORT | Encounter Summary ---
Author Author [facility] Organization [facility] Address Unknown Phone Unavailable Care Team Providers Care Shoe Lining Fitter Name Role Phone Yulissa Zapata PCP Reason for Visit * Auth/Cert Referred By Contact Referred To Contact Status Reason Specialty Diagnoses / Procedures Diagnoses DYSPHAGIA P rocedures CT ESOPHAGOGASTRODUOD ENOSCOPY TRANSORAL DIAGNOSTIC ESOPHAGOGASTRODUOD ENOSCOPY (EGD) Encounter Details Care Team Description Date Type Department Yulissa Harkins MD [address] [place] [address] Dept of [place] [address] Kiara Swain, DO [address] [place] [address] [phone] 01/01/2019 Anesthesia [facility] [id number] [place] [id number] Anesthesia Record Responsible Anesthesiologist Anesthesia Start Time Anesthesi a Stop Time Procedure Name Yulissa Harkins MD 01/01/19 1005 01/01/19 1017 ESOPHAGOGASTRODUODENOSCOP Y, USING BIOPSY (N/A ) Date Time Event Comment 741 Anesthesia 2019 Initial Contact [id number] AN Equip Check 1005 In room 1005 An Start 1005 An Start Data 1005 Anesthesia Ready 1007 Oxygen per nasal cannula 1007 Patient Positioned Self 1007 Pt eval immediately prior to anesthesia 1008 Sedation begin 1010 Spontaneous respirations 1010 Procedure start - Primary Case 1014 Procedure stop - Primary case 1015 Responds to Verbal 1016 an stop data 1016 Out of Room 1017 Handoff I completed my SBAR handoff to the receiving nurse in the PACU/ICU/OB Patient and PACU/ICU/OB nurse identifie d Discussed patient medical history Discussed procedure Reviewed intraopera tive anesthetic management and issues/concerns Discussed expectation f or early post-procedure period Questions from PACU/ICU/OB team address ed 1017 An Stop Meds Name Total propofol 10mg/mL 120 mg lidocaine 2% (PF) 100 mg lactated ringers infusion 550 mL * Name Cell Saver Blood Intake O2 N2O Air EtSEVO EtISO EtDES EtN2O * No blood administrations on file. Removal Type Details Placement 01/01/19 1108 by Mariana Sweeney RN Peripheral Date: 01/01/19; Time: 0800; Size 01/01 0800 by IV (gauge): 20 G; Orientation: Right; Elle Gorman RN Location: Hand; Removal Date: 01/01/19; Removal Time: 1108 documented in this encounter Social History Date [...] Miscellaneous Notes * Anesthesia Postprocedure Evaluation - Nirav Hong RN ACOUSTIC SENSOR OPERATOR - 01/01/2019 10:53 AM CDT Anesthesia Post Evaluation Procedure(s):ESOPHAGOGASTRODUODENOSCOPY, USING BIOPSY Surgeon: Maxim Balderas MD Patient Evaluated in: PACU Patient Participation: complete - patient participated Level of Consciousness: awake and alert Pain scale: Adequate analgesia., with adequate pain management. Airway Patency: patent Respiratory Status: spontaneous ventilation Cardiovascular Status: hemodynamically stable Postoperative Hydration: euvolemic Postop Nausea/Vomiting: controlled Anesthetic Complications: No Appropriate for discharge from anesthesia care, no apparent anesthesia related c omplication ANE Post Eval Vitals Most Recent Value BP (!) 149/91 filed at 01/01/2019 1042 Pulse 65 filed at 01/01/2019 1042 Temp 36.3 C (97.3 F) filed at 01/01/2019 1020 Resp 16 filed at 01/01/2019 1042 SpO2 96 % filed at 01/01/2019 1042 T * Anesthesia Preprocedure Evaluation - Yulissa Harkins MD - 01/01/2019 7:44 AM CDT Anesthesia Evaluation Patient summary, Nursing notes and ECG reviewed No history of anesthetic complications History of alcohol use. No history of tobacco use use. Airway Mallampati: II TM distance: >3 FB Neck ROM: full Adequate mouth opening Mandibluar prognathism past upper incisors. Dental C = Chipped M = Missing L = Loose V = Veneer Image = [place] Pulmonary Breath sounds clear to auscultation, (+) sleep apnea , (-) asthma Comment: HTN Cardiovascular Heart sounds: normal Rhythm: irregular Rate: normal (+) hypertension, hyperlipidemia, valvular problems/murmurs MR, , systolic and diastolic CHF, dysrhythmias atrial fib/flutter, (-) peripheral vascular disease, carotid disease Comment: DCM Neuro/Psych (-) CVA, TIA, seizures, neuromuscular disease GI/Hepatic/Renal (+) GERD, (-) liver disease, no chronic renal disease Endo/Other (-) diabetes mellitus, no clinical hyperthyroidism, hypothyroidism Abdominal (+) obese Obstetrics HEENT Musculoskeletal Hematology/Oncology (-) anemia and clotting disorder Anesthesia Plan ASA 3 Type: MAC () Anesthetic plan and risks discussed with spouse and patient. Plan discussed with ACOUSTIC SENSOR OPERATOR. Recovery plan: Phase II Notes Check INR as has been out of range (5-8); Medication changes made. None since . INR 1.8. Dr. Pantoja informed; will proceed Son present documented in this encounter Plan of Treatment Not on filedocumented as of this encounter Visit Diagnoses Not on filedocumented in this encounter Administered Medications Action Date Dose Rate Site Medication Order MAR Action 01/01/2019 9:43 AM CDT lactated ringers infusion New Bag 50 mL/hr, Intravenous, Continuous, Starting Gabby 01/01/19 at 0800, Pre-op 01/01/2019 10:08 AM CDT 100 mg lidocaine (pf) (XYLOCAINE-MPF) 20 mg/mL Given (2 %) injection As needed, Starting Gabby 01/01/19 at 1008, Anesthesia Intra-op 01/01/2019 10:12 AM CDT 20 mg propofol (DIPRIVAN) injection Given As needed, Starting Gabby 01/01/19 at 1008, Anesthesia Intra-op 40 mg Given 01/01/2019 10:10 AM CDT 60 mg Given 01/01/2019 10:08 AM CDT documented in this encounter
--- OUTSIDE RECORDS SUMMARY | 2019-08-31 20:41 | XMS REPORT | Encounter Summary ---
Author Author [facility] Organization [facility] Address Unknown Phone Unavailable Care Team Providers Care Field Representatives Director Name Role Phone Benny Yulissa PCP Reason for Referral * MRI/CAT/PET Scan (Routine) Referred By Contact Referred To Contact Status Reason Specialty Diagnoses / Procedures Lauro Daugherty MD [address] [facility] [address] [place] [address] [facility] [address] [place] [address] Closed Cardiology Diagnoses Paroxysmal atrial fibrillation (HCC) P rocedures CV CT Heart pre Electrophysiology * Diagnostic Imaging (Routine) Referred By Contact Referred To Contact Status Reason Specialty Diagnoses / Procedures Lauro aDugherty MD [address] [facility] [address] [place] [address] Closed Diagnoses Paroxysmal atrial fibrillation (HCC) P rocedures Electrocardiogram (ECG) without magnet Reason for Visit * Reason Comments paroxysmal atrial fib f/u on monnitor patch Encounter Details Care Team Description Date Type Department Lauro Daugherty MD [address] [facility] [address] [place] [address] [phone] Paroxysmal atrial fibrillation (HCC) (Pr imary Dx); Chronic combined systolic and diastolic CHF, NYHA class 3 (HCC); Dilated cardiomyopathy (HCC); Essential hypertension; History of cardiomyopathy; care home current use of anticoagulant therapy; Nonrheumatic mitral valve regurgitation; Mixed hyperlipidemia; Hypotension due to drugs; 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/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 Office Visit [facility] [address] [place] [address] Social History Date Tobacco Use Types Packs/Day [...] Signs Reading Time Taken Comments Vital Sign 115/72 12/30/2018 11:36 AM CDT Blood Pressure 63 12/30/2018 11:36 AM CDT Pulse - - Temperature - - Respiratory Rate - - Oxygen Saturation - - Inhaled Oxygen Concentration 94.3 kg (208 lb) 12/30/2018 11:36 AM CDT Weight 165.1 cm (5' 5") 12/30/2018 11:36 AM CDT Height 34.61 12/30/2018 11:36 AM CDT Body Mass Index documented in this encounter Patient Instructions * Patient Instructions* Tamica Correa RN - 12/30/2018 11:30 AM CDT The following test(s) have been ordered today:Pre-EP procedure CT Scan to be vinicio eduled as soon as possible. A basic metabolic panel will need to be done appro ximately 5 days prior to the procedure. This is not fasting lab and can be done at any [facility] Location. Cardiovascular Imaging will be in contact to enzo hernandez appointment. Left atrial ablation with general anesthetic with anticipation of procedure jose Calixmas. Cardiovascular Scheduling will be in contact to schedule this kelli ointment. Non-fasting lab will be done 5 to 7 days prior and may be done at any [facility] location. Medication Instructions: Continue Current Regimen Follow up with Advanced Practice Provider in 2 to 4 weeks at with either EP nurs e practitioner or physician provider in [facility]. Follow up with MD Dr. Lauro Daugherty in 3 months. Please call the Nurse Line at [phone] (EP Nurse Team). with any questions o r concerns. For medication refill needs, please first contact your pharmacy. For any [facility] scheduling questions, please john daigle . At [facility], high quality patient care is our top priority. To ensure our cardiovascular standards are continuously met, you may receive a survey via [place]in [place] or text message, and we ask that you please take the time to fill it out. We strive to ensure you are very satisfied with every visit. Thank you in advance for taking the time to fill this out. Thanks Tamica Colindres RN Having Catheter Ablation A heart rhythm problem (arrhythmia) can make your heart beat too fast or in an i rregular pattern. The problem is often caused by cells in your heart that aren t working as they should. Or, it may be the result of an abnormal electric circ uit. It may cause bothersome symptoms, such as an irregular heartbeat, dizziness , shortness of breath, chest pain, or fainting. Your doctor has recommended cath eter ablation to treat your arrhythmia. This non-surgical procedure destroys the cells that are causing the problem. Before the procedure Before your catheter ablation, you will meet with a specially trained heart doct or (cardiac blood collector) who will do the procedure. He or she will tell you how to get ready. You will likely be told to stop or changeyour heart rhyt hm medicines for a period of time before the procedure. Follow your doctors i nstructions. Also: Tell the doctor about all prescription and vnaf-wkr-wmaeysv medicines you mary ann e. This includes herbs, supplements, and vitamins. It also includes daily medici german, such as insulin or blood thinners. If you are allergic to any medicines, te ll the doctor. Have any routine tests, such as blood tests, as recommended. Dont eat or drink [id number] hoursbefore the procedure. How catheter ablation is done Catheter ablation uses thin, flexible wires (electrode catheters) to find and de stroy (ablate) problem cells. Heres how the procedure is done: The hearts signals are mapped.To find the problem, an electrophysiology study (EPS) is done. During this study, the doctor tries to start (induce) your arrhythmia. An electrical map of the heart is then created. This shows the type of arrhythmia you have and where the problem is. Using the map as a guide, the d octor knows where to ablate. Problem areas are destroyed using heat or cold therapy.Once the EPS shows w here the problem is, the doctor threads an electrode catheterthrough a blood v essel to that area in the heart. Energy is sent through the catheter to destroy the problem cells. The hearts rhythm is tested again.After ablating the problem cells, the doctor tries to restart (reinduce) your arrhythmia. If a fast rhythm cant be induced, the ablation is a success. But if a fast rhythm does start again, you m ay need more ablation. Your experience during catheter ablation In most cases, catheter ablation is done in an electrophysiology (EP) lab. It of ten takes2 to 4hours, and sometimes longer. Youll receive medicine to pre vent pain. Medicine will also help you relax or sleep during the procedure. If y ou feel uncomfortable during the procedure, tell the doctor or nurse: Getting started.The healthcare team washes the skin on your groin (or rarel y, the neck). Any hair in that area may be removed. This is where the catheters will be inserted. An IV (intravenous) line is started in your arm. Medicines and fluids are given through this IV. To help keep the insertion site germ-free (st erile), your body is draped with sheets. Only the area where the catheters will be inserted is exposed. Inserting the catheters.The healthcare provider numbs the skin where the ca theters will be insertedwith pain medicine (local anesthetic).Then the provi lake uses a small needle to make punctures in your vein or artery. He or she puts cathetersthrough these punctures and guides themto your heart. The provider usesX-ray monitors to help guide the catheters. The provider then puts wiresin several places in the heart to map the elect rical signals. Thewires also stimulate the heart. Finishing up.When the procedure is finished, the provider takes the cathete rsout of your body. He or she puts pressureon the puncture sites to stop any bleeding. No stitches are needed. Youre then taken to a recovery room to res t. You'll need to remain lying down for2 to 6hours.You'll alsobe asked n ot to move the leg where the catheters were inserted for a few hours.This is t o make sure the insertion sites don't bleed. Risks and complications The risks of catheter ablation are fairly low compared to the benefits you recei ve. Discuss these risks with your doctor before the procedure. Possible risks an d complications include: Bleeding or bruising at the catheter insertion site Blood clots A slow heart rhythm (requiring a permanent pacemaker) Perforation of the heart muscle, blood vessel, or lung (may require an emerge ncy procedure) Damage to a heart valve (rare) Stroke or heart attack, also known as acute myocardial infarction, or AMI (ra re) Infection, which is a risk after any invasive procedure. This may be indicate d by a fever of 100.4F (38.0C) or higher, drainage, or redness and pain at t he catheter insertion site. (extremely rare) Date Last Reviewed: 07/10/201519991335-9040 [employer]. [address] [place] [address] 7. All rights reserved. This information is not intended as a substitute for pro fessional medical care. Always follow your healthcare professional's instruction s. Electrophysiology Study (EPS) An EP study is an invasive but nonsurgical procedure done by a cardiac electroph ysiologist. This is a doctor who specializes in heart rhythm evaluation and johnny tment. The EP study can be used to evaluate your heart's electrical system, scre en for arrhythmias, guide treatment for arrhythmias, and evaluate the risk of ar rhythmia formation in certain heart conditions. Before the procedure Tell your doctor which medicines you take. Ask if you should stop taking them before the procedure, especially blood thinners or medicines that affect heart rate or rhythm. Have any routine tests that your doctor recommends, such as blood tests. Dont eat or drink anything after midnight the night before the procedure, or 8 hours before the procedure. During the procedure The study takes about 1 to 2 hours. You will be given medicine through an intravenous line (IV) to help you relax . Your skin is numbed with a local anesthetic. This can be on the right leg, th e left leg, or both. The doctor then insert one or multiple IV lines into the femoral vein. Using pulsed X-ray called fluorscopy, your doctor will then insert wires into the heart and place them in specific locations to record the heart's electrical activity. The electrical activity of the heart will be measured carefully. Pacing and p rogram stimulation of the heart will then be done. This involves adding addition al heartbeats in an computer technician fashion to test the heart's electrical system. It al so tests whether an abnormal heart rhythm can be induced. Medicines that stimulate the heart can be used to help induce an abnormal hea rt rhythm. Once your doctor gets the needed information, the wires will be removed from the body. The IV lines will be removed from the groin. Pressure is applied to the insertion site to prevent any bleeding. After the procedure You will be asked not to move your leg that had the catheter for 2 to 6 hours after the procedure. You will need to lie still in bed. A nurse will check the insertion site and monitor your vital signs. After the study, youmay stay overnight, or you may go home the same day. Th is will depend on the results of the study as well as the indication for the pro cedure. When to call your doctor Contact your doctor if: The insertion site has pain, increased swelling, redness, bleeding, or draina ge You have shortness of breath or chest pain You have severe pain, coldness, numbness, or a bluish color in the leg or arm that held the catheter You have a fever over 100.4F (38C) Date Last Reviewed: 08/10/201519998391-5776 [employer] [address] [place] [address] 7. All rights reserved. This information is not intended as a substitute for pro fessional medical care. Always follow your healthcare professional's instruction s. documented in this encounter Progress Notes * Lauro Daugherty MD - 12/30/2018 11:30 AM CDT [facility] [place] Appointment Date: 12/30/2018 Yulissa Zapata MD [address] [place] [address] [address] [facility] [address] RE: Pau Mccabe : 1950 Visit provider: Lauro Daugherty MD Dear Yulissa Zapata MD: I had the pleasure of seeing Pau Mccabe in the office today. She is a(n) 68 y .o. female and presents with the following chief complaint(s): paroxysmal atrial fib and f/u on monnitor patch HPI: I saw Ms. Mccabe back for reevaluation today. She was last seen in our office o n 12/09/2018. As you may recall, she has a past medical history significant for paroxysmal atrial fibrillation, history of tachycardia-induced cardiomyopathy w ith ultimate normalization of ejection fraction following improved rate and rhyt hm control, obstructive sleep apnea and hypertension. She was seen by me for fu rther evaluation of her atrial fibrillation. She has longstanding persistent at rial fibrillation associated with rapid ventricular response leading to her card iomyopathy. We elected at that point to admit her for Tikosyn loading where she underwent AIDEN-guided DC cardioversion. She overall has remained in sinus rhythm since her cardioversion, though she lafleur s report recurrent episodes of atrial fibrillation occurring on a fairly frequen t basis, lasting up to hours in duration at times. She notes the irregular hear tbeats, but has not had any tachycardia per se. She is tolerating the Tikosyn w ell. She reports no worsening exertional dyspnea, chest pain, PND or orthopnea. She has had no syncope or near syncope on the medication. The plan was for her to see if she had any marked improvement after christianity of sinus rhythm, which she did to dramatic effect. She does note when she is in atrial fibrillation and feels severely limited during those times. She remains on anticoagulation. Patient Active Problem List Diagnosis SNOMED CT(R) Tricuspid regurgitation TRICUSPID VALVE REGURGITATION Mitral regurgitation MITRAL VALVE REGURGITATION Mixed hyperlipidemia MIXED HYPERLIPIDEMIA GERD (gastroesophageal reflux disease) GASTROESOPHAGEAL REFLUX DISEASE Paroxysmal atrial fibrillation (HCC) PAROXYSMAL ATRIAL FIBRILLATION Depression DEPRESSIVE DISORDER Essential hypertension ESSENTIAL HYPERTENSION care home current use of anticoagulant therapy LONG-TERM CURRENT USE OF ANTI COAGULANT Dilated cardiomyopathy (HCC) DILATED CARDIOMYOPATHY Chronic combined systolic and diastolic CHF, NYHA class 3 (HCC) CHRONIC COMB INED SYSTOLIC AND DIASTOLIC HEART FAILURE JJ (obstructive sleep apnea) OBSTRUCTIVE SLEEP APNEA SYNDROME care home current use of antiarrhythmic drug LONG-TERM CURRENT USE OF DRUG T HERAPY Hypotension due to drugs DRUG-INDUCED HYPOTENSION History of cardiomyopathy HISTORY OF CARDIOMYOPATHY Atrial flutter (HCC) ATRIAL FLUTTER Past Medical History: Diagnosis Date Atrial fibrillation with RVR (HCC) 09/2018 Noted on 24 Hour Holter Chronic combined systolic and diastolic CHF, NYHA class 3 (HCC) Depression Dilated cardiomyopathy (HCC) Dysphagia hard to take pills- "stuck" Essential hypertension GERD (gastroesophageal reflux disease) care home current use of antiarrhythmic drug care home current use of anticoagulant therapy Mitral regurgitation Mixed hyperlipidemia JJ (obstructive sleep apnea) Paroxysmal atrial fibrillation (HCC) Pneumonia 2018 Pulmonary hypertension (HCC) Tricuspid regurgitation Past Surgical History: Procedure Laterality Date BUNIONECTOMY Left 04/2000 CARDIAC CATHETERIZATION 09/03/2018 No angiographic evidence of obstructive CAD. Abnormal LV systolic function con sistent with a nonischemic cardiomyopathy. CARDIOVERSION 11/24/2018 Atrial Fib: Successful DCCV to NSR with one shock of 200j. COLONOSCOPY HYSTERECTOMY 03/2003 REPAIR, ROTATOR CUFF Right 04/2009 UPPER GASTROINTESTINAL ENDOSCOPY 04/2017 Final Medications: Current Outpatient Medications Medication Sig Dispense Refill BIOTIN ORAL Take 10,000 mcg by mouth daily. carvedilol (COREG) 25 MG tablet Take 1 tablet (25 mg total) by mouth 2 (two) times a day. 60 tablet 11 dofetilide (TIKOSYN) 125 MCG capsule Take 1 capsule (125 mcg total) by mouth every 12 (twelve) hours. 60 capsule 6 esomeprazole (NEXIUM) 40 MG capsule Take 40 [...] Take once daily as directed by INR 90 tablet 3 warfarin (COUMADIN) 2.5 MG tablet Take 1 tablet (2.5 mg total) by mouth ever y evening. 30 tablet 11 No current facility-administered medications for this visit. Allergies Allergen Reactions Cardizem [Diltiazem Hcl] Dizziness Family History Problem Relation Age of Onset Heart attack Mother Heart attack Father Breast cancer Sister Lung cancer Brother Pancreatic cancer Sister Atrial fibrillation Sister Hypertension Brother Coronary artery disease Brother COPD Brother Social History: Social History Tobacco Use Smoking status: Never Smoker Smokeless tobacco: Never Used Substance Use Topics Alcohol use: Yes Alcohol/week: 7.0 standard drinks Types: 7 Glasses of wine per week Drug use: Never Review of Systems Constitution: Negative for fever, malaise/fatigue and night sweats. HENT: Negative for nosebleeds. Eyes: Negative for visual disturbance. Cardiovascular: Positive for dyspnea on exertion, irregular heartbeat and palpit ations. Negative for chest pain, claudication, cyanosis, leg swelling, near-sync ope, orthopnea and syncope. Respiratory: Positive for shortness of breath. Negative for cough, sleep disturb ances due to breathing, snoring and wheezing. Endocrine: Negative for cold intolerance, heat intolerance and polydipsia. Hematologic/Lymphatic: Bruises/bleeds easily. Musculoskeletal: Negative for muscle weakness and myalgias. Gastrointestinal: Positive for nausea and vomiting. Negative for dysphagia and h ematochezia. Genitourinary: Negative for hematuria. Neurological: Negative for disturbances in coordination, excessive daytime sleep iness, dizziness, light-headedness, loss of balance, numbness, paresthesias and weakness. All other systems reviewed and are negative. Vital Signs 12/30/18 1136 BP: 115/72 Pulse: 63 Weight: 94.3 kg (208 lb) Height: 1.651 m (5' 5") BMI: Body mass index is 34.61 kg/m. Physical Exam Constitutional: She is oriented to person, place, and time. She appears well-dev eloped and well-nourished. HENT: Head: Normocephalic. Eyes: Pupils are equal, round, and reactive to light. Neck: No JVD present. No thyromegaly present. Cardiovascular: Normal rate, regular rhythm, S1 normal, S2 normal, normal heart sounds and intact distal pulses. Exam reveals no gallop, no S3, no S4 and no fri ction rub. No murmur heard. Pulses: Carotid pulses are 2+ on the right side, and 2+ on the left side. Dorsalis pedis pulses are 2+ on the right side, and 2+ on the left side. Posterior tibial pulses are 2+ on the right side, and 2+ on the left side. Pulmonary/Chest: Effort normal and breath sounds normal. No respiratory distress . She has no wheezes. She has no rales. She exhibits no tenderness. Abdominal: Soft. Bowel sounds are normal. She exhibits no distension and no mass . There is no tenderness. Musculoskeletal: She exhibits no edema or tenderness. Neurological: She is alert and oriented to person, place, and time. Skin: Skin is warm and dry. No rash noted. No pallor. Psychiatric: She has a normal mood and affect. Her behavior is normal. Judgment and thought content normal. Vitals reviewed. EKG: Normal Sinus Rhythm, QTc 480 msec and at 61 bpm Encounter Diagnoses Name Primary? 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 Atrial fibrillation defined by the following: a. Paroxysmal. b. Severely symptomatic. c. Associated with biatrial dilatation. d. Now appears fairly well controlled on Tikosyn, although she does appear to be having breakthrough episodes. e. Now with more of a recurrent atypical atrial flutter with a rapid ventr icular response averaging approximately 110 beats per minute. At her last visit, we did obtain a Zio patch which she wore from 12/09/2018-12/09. It essentially showed recurrent atrial fibrillation with an overall bur den of 26%, with an average heart rate of 118 beats per minute. The longest run of atrial fibrillation lasted 2 days and 1 hour. Therefore, it does appear that the dofetilide is providing some benefit; however, not completely suppressing the arrhythmias. 2. History of cardiomyopathy felt to be tachycardia-mediated with ejection frac tion as low as 35% by echo in 08/2018. Most recently, a AIDEN performed prior to her recent cardioversion demonstrated recovery to 63%. 3. Obstructive sleep apnea, on CPAP. 4. Hypertension, controlled. Plan: I did discuss with her today results of her Zio patch and the fact that she is s till having breakthrough episodes. Given her biatrial dilatation, I do feel andrae t it is likely she will require combination of antiarrhythmic drug therapy and a blation to maintain sinus rhythm. She is very eager to pursue a rhythm control strategy at this point as she does feel much better. We therefore discussed ris ks and benefits of catheter ablation, which for her would include perforation an d a stroke at approximately 1% or less, groin bleed requiring surgical intervent ion. Combining all other rare but potentially life-threatening complications, s he could face up to a 2%-3% risk for major complication. She understands all th ose numbers and does agree to proceed. She does live in [place] for the year. Therefore, it is possible we may maintai n her on dofetilide throughout the winter and plan on ablating her in the spring . I will therefore see her when she returns if that is the case. Otherwise, I did relay to her that if she does have an ablation done here in the near future, she would likely require follow up with a chronometer assembler in [place]. She does understand the concepts and she does agree to proceed. We will therefo re make arrangements for her to have a CT angiogram. We will order the ablation with the intention of possibly postponing it until the spring if that is her de sire. Of this 60 minute office visit more than 50% of the time was spent in counseling and answering their questions about cardiac ablation. Treatment goals, progress and next steps, as above, were discussed and mutually agreed upon with the patient/family. Thank you for allowing me to participate in Pau Mccabe's care. If I can be o f any further assistance, please do not hesitate to contact me. Sincerely, Lauro Daugherty MD /ed documented in this encounter Plan of Treatment Order Schedule Name Type Priority Associated Diag noses Expected: 03/05/2019, Expires: 0 Electrophysiology Electrophysiolo Routine Paroxysmal atrial Procedure gy fibrillation (HCC) documented as of this encounter Procedures Comments Procedure Name Priority Date/Time Associated Diag nosis ECG Routine 12/30/2018 Paroxysmal atri al 11:40 AM CDT fibrillation (HCC) documented in this encounter Results * CV CT Heart pre Electrophysiology (01/05/2019 9:18 AM CDT) Specimen Narrative Performed At [facility] NAME: PAU MCCABE : [id number] GENDER: F ACCOUNT NUM: [id number] TEST: CTA of Pulmonary Veins With Con trast TEST DATE: TEST LOCATION: [facility] INPATIENT: Outpatient REFERRING PHYSICIAN: Lauro Daugherty MD REASON FOR TEST: Pulmonary vein [...] in this study. OVERREAD: Fredo Padron MD [address] [facility], [address] [place] [address] D: 2019-01-06 00:00:00.0 T: 2019-01-06 09:00:13.0 PROVIDER APPROVAL DATETIME: 2018-12-10 09:26:43.0 Procedure Note Interface, External Ris In 01/06/2019 11:38 AM CDT NAME: PAU MCCABE : [id number] GENDER: F ACCOUNT NUM: [id number] TEST: CTA of Pulmonary Veins With Contrast TEST DATE: TEST LOCATION: [facility] INPATIENT: Outpatient REFERRING PHYSICIAN: Lauro Daugherty MD REASON FOR TEST: Pulmonary vein [...] this study. OVERREAD: Fredo Padron MD [address] [facility], [address] [place] [address] D: 2019-01-06 00:00:00.0 T: 2019-01-06 09:00:13.0 PROVIDER APPROVAL DATETIME: 2019-01-06 09:26:43.0 Performing Organization Address City/State/Zipcode Ph one Number [id number] * Prothrombin Time/INR (01/01/2019 11:39 AM CDT) Protime 22.0 (H) 11.4 - 15.0 sec [facility] INR 1.9 (H) 0.8 - 1.2 [facility] Specimen Blood Performing Organization Address [facility] [place] one Number [facility] [address] [place] [address] [facility] [address] [place] [address] * CBC and Diff (manual diff if necessary) (01/01/2019 11:39 AM CDT) WBC 4.81 4.00 - 11.00 TH/uL [facility] RBC 3.78 (L) 4.00 - 5.00 MIL/uL [facility] Hemoglobin 12.7 12.0 - 15.0 g/dL [facility] Hematocrit 38 36 - 45 % [facility] MCV 100 (H) 80 - 99 fL [facility] MCH 34 27 - 34 pg [facility] MCHC 34 32 - 36 % [facility] RDW 13.0 11.5 - 14.5 % [facility] Platelet Count 137 (L) 140 - 400 TH/uL [facility] MPV 10.6 9.4 - 12.3 fL [facility] Nucleated RBCs 0 0 - 0 /100 [facility] % Neutrophils 66 45 - 78 % [facility] %Lymphocytes 18 15 - 47 % [facility] %Monocytes 9 0 - 12 % [facility] %Eosinophils 5 0 - 7 % [facility] %Basophils 1 0 - 2 % [facility] % Imm Grans 0 0 - 1 % [facility] # Granulocytes 3.18 1.70 - 6.80 TH/uL [facility] # Lymphocytes 0.88 (L) 1.00 - 3.30 TH/uL [facility] # Monocytes 0.45 0.20 - 0.90 TH/uL [facility] # Eosinophils 0.25 0.00 - 0.40 TH/uL [facility] # Basophils 0.05 0.00 - 0.10 TH/uL [facility] Specimen Blood Performing Organization Address [facility] one Number [facility] [address] [place] [address] [facility] [address] [place] [address] * Basic Metabolic Panel (01/01/2019 11:39 AM CDT) [facility] Sodium 140 133 - 147 MEQ/L [facility] Potassium 4.1 3.5 - 5.3 MEQ/L [facility] Chloride 102 96 - 112 MEQ/L [facility] Carbon Dioxide 32 20 - 32 MEQ/L [facility] Anion Gap 6 5 - 17 [facility] Calcium 9.0 8.4 - 10.5 mg/dL [facility] Glucose 105 (H) 70 - 100 mg/dL [facility] Blood Urea 18 7 - 26 mg/dL [facility] Creatinine 0.9 0.4 - 1.1 mg/dL [facility] eGFR Female AA 74 60 - 200 [facility] mL/min/1.73sq m [facility] eGFR Female 62 60 - 200 [facility] Non-AA mL/min/1.73sq m [facility] Specimen Blood Performing Organization Address 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: [id number] : 1950 Requested By: LAURO DAUGHERTY Order Number: [id number] Reading MD: Lauro Daugherty Measurements Intervals [place] Rate: 61 P: 38 WA: 144 QRS: -5 QRSD: 98 T: 34 QT: 476 QTc: 480 Interpretive Statements SINUS RHYTHM Electronically Signed On 01-05-2019 6:0 7:41 CDT by Lauro Daugherty Procedure Note Interface, External Ris In - 01/05/2019 6:07 AM CDT [facility] [place] Test Date: 2018-12-30 Pat Name: PAU MCCABE Department: [facility] Room: Gender: Female Bearing Inspector: [id number] : 1950 Requested By: LAURO DAUGHERTY Order Number: [id number] Reading MD: Lauro Daugherty Measurements Intervals [place] Rate: 61 P: 38 WA: 144 QRS: -5 QRSD: 98 T: 34 QT: 476 QTc: 480 Interpretive Statements SINUS RHYTHM Electronically Signed On 01-05-2019 6:07:41 CDT by Lauro Daugherty Performing Organization Address City/State/Zipcode Ph one Number [facility] documented in this encounter Visit Diagnoses Diagnosis Paroxysmal atrial fibrillation (HCC) Atrial fibrillation Chronic combined systolic and diastolic CHF, NYHA class 3 (HCC) Dilated cardiomyopathy (HCC) Other primary cardiomyopathies Essential hypertension Unspecified essential hypertension History of cardiomyopathy 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
--- OUTSIDE RECORDS SUMMARY | 2019-08-31 20:41 | XMS REPORT | Encounter Summary ---
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 Name Role Phone Yulissa Zapata PCP Reason for Visit * Auth/Cert Referred By Contact Referred To Contact Status Reason Specialty Diagnoses / Procedures Diagnoses DYSPHAGIA P rocedures RI ESOPHAGOGASTRODUOD ENOSCOPY TRANSORAL DIAGNOSTIC ESOPHAGOGASTRODUOD ENOSCOPY (EGD) Encounter Details Care Team Description Date Type Department Maxim Balderas MD [address] [place] [address] [phone] ESOPHAGOGASTRODUODENOSCOPY, USING BIOPSY 01/01/2019 [place] [address] Social History Date Tobacco Use Types Packs/Day [...] Signs Reading Time Taken Comments Vital Sign 156/84 01/01/2019 11:00 AM CDT Blood Pressure 64 01/01/2019 11:00 AM CDT Pulse 36.3 C (97.3 F) 01/01/2019 10:20 AM CDT Temperature 19 01/01/2019 11:00 AM CDT Respiratory Rate 96% 01/01/2019 11:00 AM CDT Oxygen Saturation - - Inhaled Oxygen Concentration 93 kg (205 lb) 12/29/2018 9:05 AM CDT Weight - - Height 34.11 12/09/2018 11:04 AM CDT Body Mass Index documented in this encounter Medications at Time [...] hypokalemia prevention documented as of this encounter H&P Notes * Maxim Balderas MD - 01/01/2019 10:17 AM CDT PRE ENDOSCOPIC PROCEDURE HISTORY AND PHYSICAL Procedure: EGD Indication for Procedure: Dysphagia Past surgical history: Past Surgical History: Procedure [...] disease) 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 Authorizing Provider BIOTIN ORAL Take 10,000 mcg by mouth [...] anesthesia/Conscious sedation Preprocedure Examination: Blood pressure (!) 169/82, pulse 60, temperature (!) 2.4 C (36.4 F), tempera ture source Oral, resp. rate 22, weight 93 kg (205 lb), SpO2 97 %. HEENT: normal atraumatic, no neck masses, [...] wi th the patient/advocate. Electronically signed by Maxim Balderas 01/01/2019 10:17 AM documented in this encounter Miscellaneous Notes * Operative Note - Maxim Balderas MD - 01/01/2019 8:30 AM CDT EGD Report Date: 01/01/2019 8:30 AM Patient Name: PAU MCCABE (age): 1950 (68) Gender: Female Endoscopist(s): Maxim Balderas MD Instrument(s): [employer] Endoscope(361) Referring Physician: Yulissa Zapata MD ASA Information: See Anesthesia Record Administered [...] being detected during the procedure. 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 The risk/benefit ratio was deemed appropriate to proceed with the procedure. MAC was administered by anesthesiologist. Continuous pulse oximetry [...] apparent limitations or complications Findings: Esophagus Lumen A sliding small size hiatal hernia was seen, the Z line was noted at 38 cm, with hiatal narrowing at 40 cm from the incisors. Retroflexion view in the stomach confirmed the size and morphology of the hernia. Stomach Normal stomach. No edema, erythema, friability, erosions, ulcerations, ulcers, masses, tumors, arteriovenous malformations, or gastric varices. Retroflexed examination of the proximal stomach did not demonstrate significant structural abnormalities. Duodenum Normal duodenum. No duodenitis, bulboduodenitis, masses, scarring, erosions, or ulcers and the duodenal folds had a normal appearance. Other Interventions: Two cold forceps biopsies were performed for histology in the second part of the duodenum. This was done to evaluate for eosinophilic esophagitis. Impressions: Normal stomach. No edema, erythema, friability, erosions, ulcerations, ulcers, masses, tumors, arteriovenous malformations, or gastric varices. Retroflexed examination of the proximal stomach did not demonstrate significant structural abnormalities. Normal duodenum. No duodenitis, bulboduodenitis, masses, scarring, erosions, or ulcers and the duodenal folds had a normal appearance. Esophageal hiatal hernia. Plan: Await pathology results If biopsies negative for EOE, recommend esophageal motility study Maxim Balderas MD Electronically signed on 01/01/2019 10:23:22 AM by Maxim Balderas MD documented in this encounter Plan of Treatment Not on filedocumented as of this encounter Procedures Comments Procedure Name Priority Date/Time Associated Diag nosis TISSUE PATHOLOGY OR Routine 01/01/2019 BIOPSY 10:14 AM CDT ESOPHAGOGASTRODUODENOSCOP 01/01/2019 Dysphagia Y, USING BIOPSY 10:05 AM CDT Hiatal hernia PROTHROMBIN TIME/INR STAT 01/01/2019 9:25 AM CDT documented in this encounter Results * Tissue Pathology or Biopsy (01/01/2019 10:14 AM CDT) Specimen Tissue - Esophagus Narrative Performed At [facility] Pathology Group [facility] SURGICAL PATHOLOGY REPORT PATIENT: PAU MCCABE /AGE/SEX: 1950 (Age: 68) /F ID #: [id number] SUBMITTING PHYSICIAN: Maxim Ramey ra, MD CLIENT: [facility] COLLECTED: 01/01/2019 REPORTED: 01/02/2019 SPECIMEN #: [id number] ##################MICROSCOPIC INTERPRET ATION################## Esophagus, biopsy: - Esophagitis with increased eosi nophils (see comment). Comment: Sections of the esophageal bio psy demonstrate increased eosinophils numbering up to 22 per HPF. There is fo john eosinophilic microabscess formation. The findings are compatible with a diag nosis of eosinophilic esophagitis in the correct clinical and endoscopic context. Nato Benoit MD Report Electronically Signed Out CLW:01/02/19 WILLIAM(REPRODUCTIVE SURGEON) CLINICAL HISTORY/IMPRESSION: Dysphagia; r/o eosinophilic esophagitis . SPECIMEN LABELED: Esophagus biopsy GROSS DESCRIPTION: The specimen is received in formalin, l abeled with the patient name and further designated "esophagus biopsy." The spec imen consists of 3 honeycutt-white fragments of soft to rubbery tissue measuring 0.2 , 0.4 and 0.55 cm in the greatest dimensions. The specimen is entirely submitted in [place] t[place] (A1). (RE) re Professional Component performed by WILLIAM , a [facility] Pathologist located at [facility], [address] [place] [address] Technical Component performed at [address], [place] [address]###END OF REPORT### Performing Organization Address [facility] Ph one Number [facility] [address] [place], [place] [phone] * Prothrombin Time/INR (01/01/2019 9:25 AM CDT) Protime 21.7 (H) 11.4 - 15.0 sec [facility] INR 1.8 (H) 0.8 - 1.2 [facility] Specimen Blood Narrative Performed At This order is a replacement of the rejected order wit h accession number [facility] [id number]. LAB Performing Organization Address [facility] one Number [facility] [address] [place] [address] [facility] [address] [place] [address] documented in this encounter Visit Diagnoses Diagnosis Dysphagia Hiatal hernia Diaphragmatic hernia without mention of obstruction or gangrene documented in this encounter Administered Medications Action Date Dose Rate Site Medication Order MAR Action 01/01/2019 10:41 AM CDT 10 mg labetalol (NORMODYNE,TRANDATE) injection Given 10 mg 10 mg, Intravenous, Once, Gabby 01/01/19 at 1100, For 1 dose, Intra-op 01/01/2019 9:43 AM CDT lactated ringers infusion New Bag 50 mL/hr, Intravenous, Continuous, Starting Gabby 01/01/19 at 0800, Pre-op documented in this encounter
--- OUTSIDE RECORDS SUMMARY | 2019-08-31 20:41 | XMS REPORT | Encounter Summary ---
Author Author [facility] Organization [facility] Address Unknown Phone Unavailable Care Team Providers Care Internal Medicine Hospitalist Name Role Phone Yulissa Zapata PCP Encounter Details Care Team Description Date Type Department Dayton Daugherty MD [address] [facility] [address] [place] [address] [phone] 12/30/2018 [facility] al Encounter [address] [place] [address] Social History Date Tobacco Use Types Packs/Day [...] as of this encounter Miscellaneous Notes * CV Lab Pre-Procedure Vacation Guide Note - Marcia Kelsey RN - 08/31/2019 2:31 PM CDT Pt states she just had an EGD and has a surgery consult for achalasia. She state s she will call us back once she knows the plan. If she doesn't call back, will need to drop 10/05 hold. * CV Lab Pre-Procedure Vacation Guide Note - Marcia Kelsey RN - 08/31/2019 2:04 PM CDT LMOM for pt to call back and schedule procedure. * CV Lab Pre-Procedure Vacation Guide Note - Tamica Emmanuel RN - 08/27/2019 4:33 PM CDT Dayton Daugherty MD 3 days ago Since she is taking Tikosyn, then reasonable to take a bid med-Eliquis fine, oth eralmas nancyagnes Thanks bmr Documentation Angelique Hamilton RN You; Dayton Daugherty MD; [facility] Cv Lab Schedulers 3 days ago No, when I spoke to pt, she was informed we would like want her to transition to NOAC and she was agreeable. She was planning to call following EGD (schededuled 08/27) to discuss transition. BMR: what were you wanting to transition her to? * CV Lab Pre-Procedure Vacation Guide Note - Anastasiia Pop RN - 08/24/2019 12:28 PM CDT Holding 10/05 * CV Lab Pre-Procedure Vacation Guide Note - Tracey Gutierrez RN - 08/21/2019 12:27 PM CDT Switching to NOAC post egd per BMR * CV Lab Pre-Procedure Vacation Guide Note - Tracey Gutierrez RN - 08/21/2019 12:26 PM CDT ZULLY Bernal; Dayton Daugherty MD; Nirav Keys LPN; [facility] Ep Nurses; [facility] Cv Lab Schedulers; [facility] Ep Schedulers 7 minutes ago (12:18 PM) The ablation is not sched yet. Pt wants us to call her 08/30 (after the EGD to sched). Will be at least 5 weeks after that for INRs. I am holding a spot but pt is not aware of date- but will be around there or early October Routing comment ZULLY Pulliam 2 hours ago (9:45 AM) Emma: procedure date hasn't been scheduled yet (pending EGD results-she is sche duled 08/27 for that) thanks Routing comment Angelique Hamilton, RN 2 hours ago (9:45 AM) Spoke to pt to review Dr Daugherty's rec, ok to hold warfarin as requested, but he w ould like to transition her to NOAC following completion of EGD. Pt v/u, is agre eable. Also aware he would like to see her in clinic prior to ablation since it has been several months since last discussion. Pt will call us following scheduled EGD to discuss transition to NOAC Documentation * CV Lab Pre-Procedure Vacation Guide Note - Tamica Emmanuel RN - 08/21/2019 12:17 PM CDT HOLD on 10/08 just to have something to offer in range * CV Lab Pre-Procedure Vacation Guide Note - Anastasiia Pop RN - 08/19/2019 5:11 PM CDT Called pt--EGD sched 08/27 at , wants a call 08/30 to pick a date -- no holds-- anxious to sched - needs 4 weeks Inrs. * CV Lab Pre-Procedure Vacation Guide Note - Yulissa Wilkerson RN - 08/10/2019 3:04 PM CDT Left message on machine w/ request for call back to let us know if she had GI ap pointment at , EGD and if ready to schedule VIRGILIO. * CV Lab Pre-Procedure Vacation Guide Note - Tamica Emmanuel RN - 07/30/2019 12:39 PM CDT Signed Note from Severino Keys: Pt called stating GI wants to complete another EGD, and she will probably need t o stop warfarin for that procedure. She questions completing ablation LARS prio r to EGD. I explained to [...] symptoms, and we would see if Dr Daughrety has any additional recs. BP since starting diltiazem has been 105-130/73-86 and HR has been 70-100, but has occasionally still gotten up to 120. Routed to Dr Daugherty for any additional recs. Will fu with pt in a week to see if EGD sched. I put a hold on 09/24 to have a date about 6 weeks out but may be off depending on when EGD is and if time for 4 weeks of INRs. * CV Lab Pre-Procedure Vacation Guide Note - Leslie Marcial RN - 07/15/2019 3:40 PM CDT Pt has returned from [place], is stressed, and wants to schedule ablation. She i s a 4. Sent to BMR nurses to call her to see if needs re-evaluated. * CV Lab Pre-Procedure Vacation Guide Note - Tracey Gutierrez RN - 05/20/2019 10:01 AM CDT Pt to see [facility] on July 28. Asked us to f/u beginning of August. Does not want to h old any dates. * CV Lab Pre-Procedure Vacation Guide Note - Yulissa Wilkerson RN - 04/24/2019 1:23 PM ENROLLER Pt has been unable to make appointment w/ [facility] specialist because he has not re ceived her medical records yet. She has left messages w/ request for call back f rom GI @ [facility] which have gone unreturned thus far. Requested call back to let us know when GI consult scheduled. We will f/u w/ her if we have not heard back fr om her in two weeks. At that time if OV not scheduled we will need to drop June hold for VIRGILIO and hold later date. Patient returning from [place] late May, co nfirmed she is still taking OAC. LLER * CV Lab Pre-Procedure Vacation Guide Note - Yulissa Wilkerson RN - 04/13/2019 3:28 PM ENROLLER Discussed scheduling VIRGILIO w/ BMR in late June as previously planned. Per pt; she is being referred to GI doctor at for evaluation of POEM. She will call [...] before tikosyn having fast hear t beats. Patient aware of hold, she requests hold until she speaks w/ GI doctor next w picayune. Needs OV to update H&P, four weeks of therapeutic INR's. May need anesthesia consult per previous note from Tamica. LLER * CV Lab Pre-Procedure Vacation Guide Note - Tamica Emmanuel RN - 04/08/2019 4:27 PM ENROLLER HOLD 06/30. Pt is in [place] but ok ot ask her if day ok to get on sched. LLER * CV Lab Pre-Procedure Vacation Guide Note - Yulissa Willard RN - 04/07/2019 3:45 PM ENROLLER Trying to get full days for BMR on 06/14 and 06/30. Put Tavares on 06/14 and Estelle on 06/30? LLER * CV Lab Pre-Procedure Vacation Guide Note - Tamica Emmanuel RN - 03/24/2019 11:02 AM ENROLLER Discussed scheduling VIRGILIO with BMR. Pt states has been doing well on tikosyn wit h fewer episodes of afib. Pt is still waiting on motility study results. Pt wa nts to schedule at end of June as she is in [place] now for winter. Told pt will call when June schedule built and find a date and pt vu. LLER * CV Lab Pre-Procedure Vacation Guide Note - Tamica Emmanuel RN - 03/20/2019 8:30 AM ENROLLER No notes of results on motility study but report looks not good. Will hold to see if have report next week and call Saturday - can decide then if need to mak ge the hold LLER * CV Lab Pre-Procedure Vacation Guide Note - Tamica Emmanuel RN - 03/14/2019 5:45 AM ENROLLER Pt has motility study 03/16. She has not had INR since 02/26. I think absolute ly need weekly INRs as opposed to another scope/AIDEN given her esophagus issues s o not eligible for the 04/08 date and that hold dropped. Keeping hold on 04/30. (pt is not aware of any of these dates) Fu results of motility study next week and call pt to see if ready to resched ov and will need start weekly INRs by Also, I think may need to have her see anesthesia pre-op LLER * CV Lab Pre-Procedure Vacation Guide Note - Tamica Emmanuel RN - 03/13/2019 7:41 AM ENROLLER Pt cancelled 03/13 ov with TMB. Will move to fu motility study results after 03/16 study. Will leave hold on 04/08 but would have to start weeky INRs stat Will think about moving hold to 04/30 LLER * CV Lab Pre-Procedure Email Note - Tamcia Emmanuel RN - 03/12/2019 8:08 AM ENROLLER From: CV Lab Scheduling Sent: March 8:08 AM To: Lorena Guzman <[email or web address] Cc: DL-[facility]-EP Nurses <[email or web address]> Subject: Brynn Mccabe 46 Happy 2019! You are seeing this pt in clinic tomorrow. We have been try ing to get her in for VIRGILIO with BMR but has been delayed by her admission and eso phagus issues. She is back on warfarin and therapeutic in Feb. Having motilit y study 03/16. We have a spot we have been holding for VIRGILIO 04/08 but that may be too aggressive a date given her other issues. Please let us know after you see if her you think we can shot for 04/08 or need t o push date out farther. Thanks, Tamica Emmanuel RN, BSN CV Lab System Home Service Advisor LLER * CV Lab Pre-Procedure Vacation Guide Note - Tamica Emmanuel RN - 02/25/2019 7:54 AM ENROLLER Patient is scheduled for motility study 03/16 at [facility]. OV sched with TMB 1/3. The EKGs 12/30 and 02/08 she was in sinus rhythm. On telemetry strips was in sinsus 02/09 but afib 02/13. She is back on warfarin. If starting INRs 1/3 she would be 2 days short of 4 w eeks and prob ok and who wants to do a AIDEN on her?? Probably needs to see antwan mosley pre op also. Will set to email FC on 03/12 before of about hold, etc. LLER * CV Lab Pre-Procedure Vacation Guide Donal - Tamica Emmanuel RN - 02/16/2019 4:20 PM ENROLLER Dc summary reviewed: Procedures: 1. EGD: 02/09/19, unable to pass scope and fluid / food filled esophagus 2. EGD: 02/10/19, no evidence of stricture, possible achalasia 3. EGD: 02/12/19, botulism toxin to lower esophageal sphincter Appeared to aspirate during 02/09 attempt She will be started on clear liquid [...] repeated if her symptoms come leonardo k. Follow up with Yulissa Zapata MD in 1 week. GI in 1-2 months Will move to call pt and see how she's doing at end of week (hopefully seen PCP) then discuss date (see hold 04/08 just to have something) status on OAC LLER * CV Lab Pre-Procedure Vacation Guide Note - Tamica Emmanuel RN - 02/09/2019 4:34 PM ENROLLER HOLD on 04/08 to have something to offer On 02/12 still ip for esophageal dysphagia and aspiration pneumonia from second E GD. Trying clear liquid diet. Home tomorrow if tolerates. Warfarin still o n hold pending decision on repeat EGd and or botox if can't eat. LLER * CV Lab Pre-Procedure Vacation Guide Note - Tamica Emmanuel RN - 02/09/2019 2:31 PM ENROLLER ip admit for esophagitis continues. -- Warfarin interrupted. Esophageal dysphagia Concern for esophageal stricture s/p [...] hold warfarin as repeat EGD likely needed LLER * CV Lab Pre-Procedure Vacation Guide Note - Anastasiia Pop RN - 02/09/2019 2:06 PM ENROLLER IP for allergic, chronic esophagitis (closed up, poss aspiration w/ EGD attempt, will do AIDEN w/ anesth), cant take pills per Lakshmi Vicente. LLER * CV Lab Pre-Procedure Vacation Guide Note - Tamica Emmanuel RN - 01/08/2019 3:24 PM CDT Discussed scheduling VIRGILIO and explained BMR schedule full thru end of year. Pt i s anxious to schedule and would like call with cx if has weeks notice. Pt and f amily moving to [place] for winter but she will return for ablation at any time. * CV Lab Pre-Procedure Vacation Guide Note - Yulissa Wilkerson RN - 01/07/2019 5:18 PM CDT Spoke briefly w/ patient about scheduling VIRGILIO w/ BMR. She has a house full of co rafael and would like a call back tomorrow. She has been in [place] last 3 weeks. * CV Lab Pre-Procedure Vacation Guide Note - Tamica Emmanuel RN - 01/06/2019 8:03 AM CDT Nothing to offer around [place] now -- call and get the details of when she wi ll be here. Not sure if she is even staying long enough to get it and be here 2 weeks before travel. Probably will be in [place]. Check her dates and give her wait list speech. Her name is on the spot on 03/02 in case Precious doesn't want is (and he may not ) so can ask if she is available that day if comes open * CV Lab Pre-Procedure Vacation Guide Note - Tamica Emmanuel RN - 01/05/2019 11:24 AM CDT CTA being done 01/05. Pt wants VIRGILIO week around [place]. * CV Lab Pre-Procedure Vacation Guide Note - Tamica Emmanuel RN - 01/05/2019 11:22 AM CDT From BMR ovl: She does live in [place] for the year. Therefore, it is possible [...] would likely require follow up with a cook pickled meat in [place]. She does understand the concepts and she does agree to proceed. We will therefo re make arrangements for her to have a CT angiogram. We will order the ablation with the intention of possibly postponing it until the spring if that is her de sire. * CV Lab Pre-Procedure Email Note - Anastasiia Pop RN - 12/30/2018 5:45 PM CDT From: Reina Bacon <[email or web address]> Sent: Sunday, December 30, 2018 3:34 PM To: Tamica Correa <[email or web address]>; CV Lab Scheduling < [email or web address]>; DL-[email or web address] Nurses <[email or web address]>; DL-[facility]-CV Imaging Scheduling <[email or web address]>; Lorena Severino <[email or web address]>; French Garner <[email or web address]> Subject: Re: Brynn Mccabe 1950 only opening is at [facility] at 0800 this 01-01-19 pt has an EGD at [facility]time. Lorena/French can you assist. Thanks From: Tamica Correa <[email or web address]> Sent: Sunday, December 30, 2018 12:54 PM To: CV Lab Scheduling <[email or web address]>; [email or web address] Nurses < [email or web address]>; NGUY[facility]-CV Imaging Scheduling < [email or web address]> Subject: Brynn Mccabe 1950 CV scheduling: BMR will be talking to you regarding this patient and scheduling plan. They leave for [facility] Jan 09- and would like to have the VIRGILIO done the week around [place] when they are back in [facility]. CV Imaging: patient would like to have the pre-EP CT done by Jan 09 or when they will leave for [place]. I did NOT make any guarantee this request could be accommodated. Also she has a AIDEN this Jan 01. Lab order was mickie Colindres documented in this encounter Plan of Treatment Not on filedocumented as of this encounter Visit Diagnoses Diagnosis Paroxysmal atrial fibrillation (HCC) Atrial fibrillation documented in this encounter Admitting Diagnoses Diagnosis Paroxysmal atrial fibrillation (HCC) Atrial fibrillation documented in this encounter Additional Health Concerns Last Indicated Resolved Time Infection Onset Date 02/12/2019 02/12/2019 12:39 PM ENROLLER C.Difficile - Rule Out 02/12/2019 documented as of this encounter
--- OUTSIDE RECORDS SUMMARY | 2019-08-31 20:41 | XMS REPORT | Encounter Summary ---
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 documented as of this encounter Progress Notes * Ibis Goss LPN - 12/19/2018 2:02 PM CDT Received Live call from client INR ; Per [facility] Warfarin Outpatient [facility]; Indicatio ns Persistent Afib INR 3.5 previous INR 3.0 per table 7 Recommendations: decre ase weekly dose by 6.9% cont.On 2.5 every MWF; 1.5 mg all other days recheck w ith lab draw on 12/26/2018 client v/u with dosing instructions and recommendatio ns naresh ESTEVEZ documented in this encounter Plan of Treatment Not on filedocumented as of this encounter Procedures Comments Procedure Name Priority Date/Time Associated Diag nosis PROTIME-INR Routine 12/19/2018 documented in this encounter Results * Protime-INR (12/19/2018) INR 3.5 (A)Comment: INR 3.5 reduce 2 - 3 weekly dose cont with 2.5 mg every MWF; 1.5 mg all other days recheck on 12/26/2018 Specimen Blood documented in this encounter Visit Diagnoses Diagnosis residential current use of antiarrhythmic drug Persistent atrial fibrillation (HCC) Atrial fibrillation documented in this encounter
--- OUTSIDE RECORDS SUMMARY | 2019-08-31 20:41 | XMS REPORT | Encounter Summary ---
Author Author [facility] Organization [facility] Address Unknown Phone Unavailable Care Team Providers Care Industrial Photographer Name Role Phone Yulissa Zapata PCP Reason for Visit * Auth/Cert Referred By Contact Referred To Contact Status Reason Specialty Diagnoses / Procedures Diagnoses DYSPHAGIA P rocedures TX ESOPHAGOGASTRODUOD ENOSCOPY TRANSORAL DIAGNOSTIC ESOPHAGOGASTRODUOD ENOSCOPY (EGD) Encounter Details Care Team Description Date Type Department Maxim Balderas MD [address] [place] [address] [phone] 01/01/2019 [place] [address] Social History Date Tobacco Use Types Packs/Day [...] "stuck" Essential hypertension GERD (gastroesophageal reflux disease) 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 Historical Pro videMD jossie furosemide (LASIX) 40 MG tablet Take 40 [...] encounter Miscellaneous Notes * Operative Note - Mxaim Balderas MD - 01/01/2019 8:30 AM CDT EGD Report Date: 01/01/2019 8:30 AM Patient Name: PAU MCCABE (age): 1950 (68) Gender: Female Endoscopist(s): Maxim Balderas MD Instrument(s): Chef Dovunquesmitha Endoscope(361) Referring Physician: Yulissa Zpaata MD ASA Information: See Anesthesia Record Administered [...] being detected during the procedure. The patient/patients international sales representative appeared to understand the procedure, [...] Specimen Tissue - Esophagus Narrative Performed At [facility] Pathology Group [facility] SURGICAL PATHOLOGY REPORT PATIENT: PAU MCCABE /AGE/SEX: 1950 (Age: 68) /F ID #: [id number] SUBMITTING PHYSICIAN: Maxim Ramey ra, MD CLIENT: [facility] COLLECTED: 01/01/2019 REPORTED: 01/02/2019 SPECIMEN #: [id number] ##################MICROSCOPIC INTERPRET ATION################## Esophagus, biopsy: - Esophagitis with increased eosi nophils (see comment). Comment: Sections of the esophageal bio psy demonstrate increased eosinophils numbering up to 22 per HPF. There is fo john eosinophilic microabscess formation. The findings are compatible with a diag nosis of eosinophilic esophagitis in the correct clinical and endoscopic context. Nato Benoit MD Report Electronically Signed Out CLW:01/02/19 WILLIAM(YARDER BOSS) CLINICAL HISTORY/IMPRESSION: Dysphagia; r/o eosinophilic esophagitis . SPECIMEN LABELED: Esophagus biopsy GROSS DESCRIPTION: The specimen is received in formalin, l abeled with the patient name and further designated "esophagus biopsy." The spec imen consists of 3 honeycutt-white fragments of soft to rubbery tissue measuring 0.2 , 0.4 and 0.55 cm in the greatest dimensions. The specimen is entirely submitted in casse tte (A1). (RE) re Professional Component performed by WILLIAM , a [facility] Pathologist located at [facility], [address] [place] [address] Technical Component performed at [address] [place] [address]###END OF REPORT### Performing Organization Address [facility] Ph one Number [facility] [address] [place], [place] [address] [id number] * Prothrombin Time/INR (01/01/2019 9:25 AM CDT) Protime 21.7 (H) 11.4 - 15.0 sec [facility] Lab INR 1.8 (H) 0.8 - 1.2 [facility] Specimen Blood Narrative Performed At This order is a replacement of the rejected order wit h accession number [facility] [id number]. LAB Performing Organization Address [facility] one Number [facility] LAB [address] [place] [address] [facility] Lab [id number] [place] [address] documented in this encounter Visit Diagnoses Not [...]
--- OUTSIDE RECORDS SUMMARY | 2019-08-31 20:41 | XMS REPORT | Encounter Summary ---
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 documented as of this encounter Progress Notes * Kristi Chapni LPN - 12/12/2018 2:11 PM CDT [facility] Anticoagulation protocol 2.0-3.0 Table 7. No dose adjustment required if pr evious INR was>3.4. Previous INR (3.5) INR 3.0 Recommendation: Continue 1.75 mg daily. Recheck 12-19-2018. Constance ESTEVEZ Spoke with Brynn provided results and recommendations. Brynn verbalized unders tanding. Barbara Chapin LPN Patient was not taking what we thought she was taking. Changed calendar to refle ct patient's current dose. Constance ESTEVEZ documented in this encounter Plan of Treatment Not on filedocumented as of this encounter Procedures Comments Procedure Name Priority Date/Time Associated Diag nosis PROTIME-INR Routine 12/12/2018 documented in this encounter Results * Protime-INR (12/12/2018) INR 3.0 (A)Comment: INR 3.0 2 - 3 Recommendation: Patient taking 2.5 mg on Mon, Wed, Fri, 1.75 all other days. Rechecking 12-19-2018. w Specimen Blood Resulting Agency Comment documented in this encounter Visit Diagnoses Diagnosis detention current use of antiarrhythmic drug Persistent atrial fibrillation (HCC) Atrial fibrillation documented in this encounter
--- OUTSIDE RECORDS SUMMARY | 2019-08-31 20:41 | XMS REPORT | Encounter Summary ---
Author Author [facility] Organization [facility] Address Unknown Phone Unavailable Care Team Providers Care Skin Former Name Role Phone Yulissa Zapata PCP Encounter Details Care Team Description Date Type Department Lian Pablo LPN longterm current use of antiarrhythmic drug 12/26/2018 Anticoag visit [facility] [address] [place] [address] Social History Date Tobacco Use Types Packs/Day [...] Progress Notes * Lian Pablo LPN - 12/26/2018 5:21 PM CDT Pt reported her INR today and will hold warfarin starting tomorrow for procedure on 01/01, is aware to resume maintenance dose and recheck INR on 01/05. Updated track documented in this encounter Plan of Treatment Not on filedocumented as of this encounter Procedures Comments Procedure Name Priority Date/Time Associated Diag nosis PROTIME-INR Routine 12/26/2018 documented in this encounter Results * Protime-INR (12/26/2018) INR 3.2Comment: Recommend: take 2 2 - 3 mg tonight, then cont. 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
--- OUTSIDE RECORDS SUMMARY | 2019-08-31 20:41 | XMS REPORT | Encounter Summary ---
Author Author [facility] Organization [facility] Address Unknown Phone Unavailable Care Team Providers Care Lpn Name Role Phone Yulissa Zapata PCP Encounter Details Care Team Description Date Type Department Dayton Daugherty MD [address] [place] [address] [phone] Paroxysmal atrial fibrillation (HCC) 01/01/2019 Lab [facility] [phone] Social History Date Tobacco Use Types Packs/Day [...] as of this encounter Progress Notes * Dayton Daugherty MD - 01/01/2019 11:40 AM CDT I have reviewed the results of the above laboratory testing which include CBC an d BMP: I will make the following recommendations: Serum Cr normal-continue with TimatthewnIsabell to proceed with CTA bmr documented in this encounter Plan of Treatment Not on filedocumented as of this encounter Procedures Comments Procedure Name Priority Date/Time Associated Diag nosis PROTHROMBIN TIME/INR Routine 01/01/2019 Paroxysma l atrial 11:39 AM CDT fibrillation (HCC) CBC AND DIFF (MANUAL DIFF Routine 01/01/2019 Paro xysmal atrial IF NECESSARY) 11:39 AM CDT fibrillation (HCC) BASIC METABOLIC PANEL Routine 01/01/2019 Paroxysm al atrial 11:39 AM CDT fibrillation (HCC) documented in this encounter Results * Prothrombin Time/INR (01/01/2019 11:39 AM CDT) Protime 22.0 (H) 11.4 - 15.0 sec [facility] INR 1.9 (H) 0.8 - 1.2 [facility] Specimen Blood Performing Organization Address City/State/[facility] Ph one Number [facility] [address] [place] [phone] [facility] [id number] [place] [address] * CBC and Diff (manual diff if necessary) (01/01/2019 11:39 AM CDT) WBC 4.81 4.00 - 11.00 TH/uL [facility] RBC 3.78 (L) 4.00 - 5.00 MIL/uL [facility] Hemoglobin 12.7 12.0 - 15.0 g/dL [facility] Hematocrit 38 36 - 45 % [facility] MCV 100 (H) 80 - 99 fL [facility] MCH 34 27 - 34 pg [facility] MCHC 34 32 - 36 % [facility] RDW 13.0 11.5 - 14.5 % [facility] Platelet Count 137 (L) 140 - 400 TH/uL [facility] MPV 10.6 9.4 - 12.3 fL [facility] Nucleated RBCs 0 0 - 0 /100 [facility] % Neutrophils 66 45 - 78 % [facility] %Lymphocytes 18 15 - 47 % [facility] %Monocytes 9 0 - 12 % [facility] %Eosinophils 5 0 - 7 % [facility] %Basophils 1 0 - 2 % [facility] % Imm Grans 0 0 - 1 % [facility] # Granulocytes 3.18 1.70 - 6.80 TH/uL [facility] # Lymphocytes 0.88 (L) 1.00 - 3.30 TH/uL [facility] # Monocytes 0.45 0.20 - 0.90 TH/uL [facility] # Eosinophils 0.25 0.00 - 0.40 TH/uL [facility] # Basophils 0.05 0.00 - 0.10 TH/uL [facility] Specimen Blood Performing Organization Address City/[facility] one Number [facility] [address] [place] [address] [facility] [address] [place] [address] * Basic Metabolic Panel (01/01/2019 11:39 AM CDT) Sodium 140 133 - 147 MEQ/L [facility] Potassium 4.1 3.5 - 5.3 MEQ/L [facility] Chloride 102 96 - 112 MEQ/L [facility] Carbon Dioxide 32 20 - 32 MEQ/L [facility] Anion Gap 6 5 - 17 [facility] Calcium 9.0 8.4 - 10.5 mg/dL [facility] Glucose 105 (H) 70 - 100 mg/dL [facility] Blood Urea 18 7 - 26 mg/dL [facility] Creatinine 0.9 0.4 - 1.1 mg/dL [facility] eGFR Female AA 74 60 - 200 [facility] mL/min/1.[facility] eGFR Female 62 60 - 200 [facility] Non-AA mL/min/1.73sq m [facility] Specimen Blood Performing Organization Address City/[facility] Ph one Number [facility] [address] [place] [address] [facility] [address] [place] [address] documented in this encounter Visit Diagnoses Diagnosis Paroxysmal atrial fibrillation (HCC) Atrial fibrillation documented in this encounter
--- OUTSIDE RECORDS SUMMARY | 2019-08-31 20:41 | XMS REPORT | Encounter Summary ---
Author Author [facility] Organization [facility] Address Unknown Phone Unavailable Care Team Providers Care Door Builder Name Role Phone Yulissa Zapata PCP Reason for Visit * Reason Comments Medication questions Started antibiotic Encounter Details Care Team Description Date Type Department Sindi Alex RN Medication questions (Started antibiotic ) 12/10/2018 Telephone [facility] [address] [place] [address] Social History Date Tobacco Use [...] encounter Miscellaneous Notes * Telephone Encounter - Jeannie Hernández RN - 12/11/2018 2:10 PM CDT Contacted patient at this time with response from Dr. Daugherty. Relayed that we wou ld be sure [facility] clinic is aware of current antibiotic course. She also inquired about obtaining a letter to provide to [employer] [facility] [employer] to obta in refund on recent air travel. She was scheduled to fly out somewhere on 9, the day of admission. They have a refund process that would require a letter from our office confirming dates of hospitalization. Relayed that I would route to Dr. Daugherty to inquire if he is agreeable to sending a letter on his behalf. Re layed we would contact her accordingly. She has verbalized understanding and agr eement with plan. Jeannie Hernández, 12/11/2018 2:14 PM * Telephone Encounter - Dayton Daugherty MD - 12/10/2018 5:44 PM CDT Okay to take the antibiotic Watch INR carefully-though while on the antibiotic. bmr * Telephone Encounter - Sindi Alex RN - 12/10/2018 4:27 PM CDT Pt called to report she has a UTI, she is in [place] and went to an urgent care [facility]. They prescribed Nitrofurantoin 100 mg BID for 5 days. She wants to make yee e this will not interfere with her tikosyn. She said the pharmacist told her it should not interfere but to check with cardiology. She is also on warfarin but s he said she's holding that right now due to INR 5.1. Spoke with EP nurse and since she has been seen by BMR who initiated Tikosyn, dudley s appt with BMR 12-30. Will route to him for advice and also to INR clinic to in form them. documented in this encounter Plan of Treatment Not on filedocumented as of this encounter Visit Diagnoses Not on filedocumented in this encounter
--- OUTSIDE RECORDS SUMMARY | 2019-08-31 20:41 | XMS REPORT | Encounter Summary ---
Author Author [facility] Organization [facility] Address Unknown Phone Unavailable Care Team Providers Care Fish Culturist Name Role Phone Yulissa Zapata PCP Encounter Details Care Team Description Date Type Department Erica Lopez LPN assisted current use of antiarrhythmic drug; Persistent atrial fibrillation 12/10/2018 Anticoag visit [facility] [address] [place] [address] Social History Date Tobacco Use Types Packs/Day [...] Progress Notes * Erica Lopez LPN - 12/10/2018 1:11 PM CDT Pt flying this morning. Will be unavailable until 230pm today. Pt also has EGD on Sat12-12-18- Per [facility] Warfarin Outpatient Anticoagulation Guide: INR:5.1 . INR POINT ESTIMA TE GOAL is: 2.5. Indications: persistent afib. Patient has been on Coumadin / W arfarin > than 1 month. Table # 7. Recommend Hold warfarin and recheck INR tomorrow 12-11-18.-Erica Lopez LPN -patient verbalized understanding of current INR instructions- She is OOT for a . She also has a UTI and was placed on ABX today. She will do her best t o check INR tomorrow and call [facility]- documented in this encounter Plan of Treatment Not on filedocumented as of this encounter Procedures Comments Procedure Name Priority Date/Time Associated Diag nosis PROTIME-INR Routine 12/10/2018 documented in this encounter Results * Protime-INR (12/10/2018) INR 5.1 (A)Comment: Recommend Hold 2 - 3 warfarin and recheck INR tomorrow 12-11-18 Specimen Blood Resulting Agency Comment documented in this encounter Visit Diagnoses Diagnosis assisted current use of antiarrhythmic drug Persistent atrial fibrillation (HCC) Atrial fibrillation documented in this encounter
--- OUTSIDE RECORDS SUMMARY | 2019-08-31 20:41 | XMS REPORT | Encounter Summary ---
Author Author [facility] Organization [facility] Address Unknown Phone Unavailable Care Team Providers Care Senior Animal Trainer Name Role Phone Yulissa Zapata PCP Encounter Details Care Team Description Date Type Department Monika Lund MA 12/24/2018 Telephone [facility] [address] [address] Social History Date Tobacco Use Types Packs/Day [...] encounter Miscellaneous Notes * Telephone Encounter - Monika Lund MA - 12/24/2018 3:42 PM CDT Patient LM to reschedule EGD. Returned patients call and LMTC with her Randi york. documented in this encounter Plan of Treatment Not on filedocumented as of this encounter Visit Diagnoses Not on filedocumented in this encounter
--- OUTSIDE RECORDS SUMMARY | 2019-08-31 20:41 | XMS REPORT | Encounter Summary ---
Author Author [facility] Organization [facility] Address Unknown Phone Unavailable Care Team Providers Care Mottler Operator Name Role Phone Yulissa Zapata PCP Encounter Details Care Team Description Date Type Department Tamika Jason MA 12/25/2018 Telephone [facility] [address] [place] [address] Social History Date Tobacco Use Types Packs/Day [...] Telephone Encounter - Tamika Jason MA - 12/25/2018 10:32 AM CDT LVM for pt to call back and schedule procedure documented in this encounter Plan of Treatment Not on filedocumented as of this encounter Visit Diagnoses Not on filedocumented in this encounter
--- OUTSIDE RECORDS SUMMARY | 2019-08-31 20:41 | XMS REPORT | Encounter Summary ---
Author Author [facility] Organization [facility] Address Unknown Phone Unavailable Care Team Providers Care Peer Educator Name Role Phone Yulissa Zapata PCP Reason for Visit * Reason Comments Medication questions Encounter Details Care Team Description Date Type Department Oriana Reyes customer experience analyst questions 12/12/2018 Telephone [facility] [address] [place] [address] Social History Date Tobacco Use [...] encounter Miscellaneous Notes * Telephone Encounter - Oriana Reyes RN - 12/12/2018 1:57 PM CDT Called pt with CHRISTINE recs. Pt is agreeable to starting Digoxin for rate control but wanted to inform me that for the past 24 hours pt has been back in a normal rhy thm and has felt markedly better. Her heart rate this am was 56 when it has been around 118. Called and spoke with CHRISTINE, since she is back in a normal rhythm with a heart rate of 56 we will hold off on starting the Digoxin at this pt. Pt will contact our office if she goes out of rhythm again and has an elevated HR. * Telephone Encounter - Oriana Reyes RN - 12/12/2018 1:57 PM CDT ----- Message from Kristyn Basurto PA-C sent at 12/12/2018 11:35 AM CDT ----- Regarding: start Digoxin @ 0.125 mg daily for improved rate control Could you please contact this pt and let her know that Dr. Daugherty agreed with the plan that I discussed with her. In addition he agrees with the addition of Lano john @ 0.125 mg daily for improved rate control due to her tendency towards hypot ensive BP readings. Please send a script to her pharmacy for this new med. Due to the fact that her Cr @ baseline is ~ 1.2, I will start with the lowest dose. Let's recheck a BMP 2 weeks after starting just to assure that she is maintaini ng her previous baseline. Also she should FU with an EP REFRIGERATING TECHNICIAN in a month. Thank you . ----- Message ----- From: Dayton Daugherty MD Sent: 12/10/2018 9:53 PM CDT To: Kristyn Basurto PA-C Subject: RE: Pt back in A-fib I agree with all of that including the monitor and digoxin. Additionally, it wi ll be helpful to know if she feels markedly better in SR Thanks bmr ----- Message ----- From: Kristyn Basurto PA-C Sent: 12/09/2018 1:00 PM CDT To: Dayton Daugherty MD Subject: Pt back in A-fib Dr. Daugherty, I saw your pt in FU after her recent DCCV on 11/24/18. In addition she was hospi talized for a Tikosyn load from 11/20/18 - 11/24/18. In the office today she is back in A-fib with V response in the 90's - one teens. She reports that she felt as though she developed recurrent A-fib ~ 2 days following d/c. She reported an awareness of palpitations as well as noting her HR to be in the 90's - one teen s. However, she believes she then was back in SR for several days due to the fac t her HR was in the 60's and she denied an awareness of palpitations. She did re port some "lightheaded/dizziness" that resolved after she stopped her losartan 2 - 3 days ago. She is aware of palpitations at this time. Due to the fact that s he seems to think that she has been going in and out of A-fib, I did place a Zio patch to determine her A-fib burden and rate control given the pts report of va ried rates. She also was noted to have a low BP in the office today with systoli c in the 90's - 100. She was otherwise not very symptomatic. Do you have any oth er suggestions. Due to the tendency for a low BP I was curious about adding Lano john for rate control if she continues to have suboptimal rate control. Please le t me know at your earliest convenience. Thanks, Aislinn documented in this encounter Plan of Treatment Not on filedocumented as of this encounter Visit Diagnoses Not on filedocumented in this encounter
--- OUTSIDE RECORDS SUMMARY | 2019-08-31 20:41 | XMS REPORT | Encounter Summary ---
Author Author [facility] Organization [facility] Address Unknown Phone Unavailable Care Team Providers Care Dough Cutter Name Role Phone Yulissa Zapata PCP Encounter Details Care Team Description Date Type Department Erica Lopez LPN [facility] current use of antiarrhythmic drug; Persistent atrial fibrillation 12/11/2018 Anticoag visit [facility] [address] [place] [address] Social History Date Tobacco Use Types Packs/Day [...] Progress Notes * Erica Lopez LPN - 12/11/2018 5:34 PM CDT Per [facility] Warfarin Outpatient Anticoagulation Guide: INR:3.5hm. INR POINT ESTIMAT E GOAL is: 2.5. Indications: persistent afib. Patient has been on Coumadin / Wa rfarin > than 1 month. Table # 7. Recommend Take 1mg today and recheck INR tomorrow 10-4-19 Pt on abx.-Erica Lopez LPN -patient verbalized understanding of current INR instructions--dh documented in this encounter Plan of Treatment Not on filedocumented as of this encounter Procedures Comments Procedure Name Priority Date/Time Associated Diag nosis PROTIME-INR Routine 12/11/2018 documented in this encounter Results * Protime-INR (12/11/2018) INR 3.5 (A)Comment: Recommend Take 2 - 3 1mg today and recheck INR tomorrow 10-4-19 Pt on abx. Specimen Blood Resulting Agency Comment documented in this encounter Visit Diagnoses Diagnosis [facility] current use of antiarrhythmic drug Persistent atrial fibrillation (HCC) Atrial fibrillation documented in this encounter
--- OUTSIDE RECORDS SUMMARY | 2019-08-31 20:41 | XMS REPORT | Encounter Summary ---
Author Author [facility] Organization [facility] Address Unknown Phone Unavailable Care Team Providers Care Coal Mill Operator Name Role Phone Yulissa Zapata PCP Encounter Details Care Team Description Date Type Department Flavia Becerril RN 01/02/[address] [facility] [address] [place] [address] Social History Date Tobacco Use Types Packs/Day [...] encounter Miscellaneous Notes * Telephone Encounter - Flavia Becerril RN - 01/02/2019 4:19 PM CDT Advised pt labs are OK, she should continue taking Tikosyn and she is ok to have CV-CTA on Saturday. * Telephone Encounter - Flavia Becerril RN - 01/02/2019 4:18 PM CDT ----- Message from Dayton Daugherty MD sent at 01/02/2019 8:31 AM CDT ----- I have reviewed the results of the above laboratory testing which include CBC an d BMP: I will make the following recommendations: Serum Cr normal-continue with Tikosyn, Okay to proceed with CTA bmr documented in this encounter Plan of Treatment Not on filedocumented as of this encounter Visit Diagnoses Not on filedocumented in this encounter
--- OUTSIDE RECORDS SUMMARY | 2019-08-31 20:42 | XMS REPORT | Encounter Summary ---
Author Author [facility] Organization [facility] Address Unknown Phone Unavailable Care Team Providers Care Waste Reclaimer Name Role Phone Yulissa Zapata PCP Reason for Referral * Consultation (Routine) Referred By Contact Referred To Contact Status Reason Specialty Diagnoses / Procedures Kristina Conrad, GRADES 6 THROUGH 8 TEACHER [address] [facility] [address] [place] [address] [facility] Cardio Cl [address] [facility] [address] [place] [address] Specialty Services Hematology / Required Cardiology * Diagnostic Imaging (Routine) Referred By Contact Referred To Contact Status Reason Specialty Diagnoses / Procedures Lauro Daugherty MD [address] [facility] [address] [place] [address] [facility] Cv Ultrasound [address] [place] [address] Closed Cardiology Diagnoses Atrial fibrillation, unspecified type (HCC) 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 P rocedures Echo Transesophageal with Doppler and Color Flow Reason for Visit * Auth/Cert Referred By Contact Referred To Contact Status Reason Specialty Diagnoses / Procedures Diagnoses Atrial fibrillation, unspecified type (HCC) [facility] current use of anticoagulant therapy Atrial fibrillation (HCC) christi A trial fibrillation (HCC) Procedures ECHO TRANSESOPHAGEAL WITH DOPPLER AND COLOR FLOW Encounter Details Care Team Description Date Type Department Lauro Daugherty MD [address] [facility] [address] [place] [address] [phone] Radha Almeida MD [address] [place] [address] [phone] Jeanette Toussaint MD [address] [place] [address] [phone] Ofelia Bonilla MD [address] [facility] [address] [place] [address] [phone] Persistent atrial fibrillation (HCC) (Pr imary Dx); Atrial fibrillation, unspecified type (HCC); [facility] current use of anticoagulant therapy 11/20/2018 [facility] - Encounter [address] 11/24/2018 [place] [address] Social History Date Tobacco Use Types Packs/Day Years Used Never Smoker Smokeless Tobacco: Never Used Drinks/Week oz/Week Comments Alcohol Use 7 drinks per week Yes Sex Assigned at Date Recorded Not on file Industry Job Start Date Occupation Not on file Not on file Not on file Travel End Travel History Travel Start No recent travel history available. documented as of this encounter Last Filed Vital Signs Reading Time Taken Comments Vital Sign 114/69 11/24/2018 11:35 AM CDT Blood Pressure 61 11/24/2018 11:35 AM CDT Pulse 36.4 C (97.5 F) 11/24/2018 11:35 AM CDT Temperature 18 11/24/2018 11:35 AM CDT Respiratory Rate 95% 11/24/2018 11:35 AM CDT Oxygen Saturation - - Inhaled Oxygen Concentration 92.3 kg (203 lb 8 oz) 11/24/2018 6:12 AM CDT Weight - - Height 33.86 11/03/2018 1:05 PM CDT Body Mass Index documented in this encounter Discharge Summaries * Kristina Conrad, GRADES 6 THROUGH 8 TEACHER - 11/24/2018 12:34 PM CDT Cardiology Discharge Summary Admitting physician: Ofelia Bonilla MD Date of admission: 11/20/2018 PCP: Yulissa Zapata MD Date of discharge: 11/24/2018 Chief complaint: dyspnea on exertion HOSPITAL COURSE We are discharging Pau Wren from the [facility] today. As you know, she is a 68 y.o. female who presented with atrial fibrillation. Pt saw Dr. Daugherty in clinic 11/03 for ongoing SOA related to AF, previously on sotalol with episodes becoming more frequent, developing a CM presumed to be tachycardia mediated with EF 35% on recent Echo and normal LHC. Symptoms have been consistent with NYHA III. She had dizziness with diltiazem an d rates not well controled on coreg. Decision was made in office with Dr. Daugherty to proceed with Tikosyn load. Patient initiated on Tikosyn with 250mcg BID however QTc after dose one increase d so dosing was decreased to 125mcg BID. She remained in Afib so she had CHRISTI/DCC V completed the morning of discharge with successful conversion to NSR. Patient anticoagulated with warfarin, previously managed by her calculus tutor in [place], [place]. Plan to transition to [facility] with [facility]. On day of discharge, patient is feeling well and is eager to discharge to home. Discharge plan of care discussed at length with the patient who verbalizes an u nderstanding and is agreeable. Follow up as noted below. Denies headache, dizz iness, lightheadedness, shortness or air at rest, dyspnea on exertion, palpitati ons, chest pain and discomfort, orthopnea, paroxysmal noctural dyspnea, abdomina l distention and lower extremity edema. 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 Symptomatic recurrent AF 2. Tikosyn load 3. Oral anticoagulation -- Directly admitted due to symptoms -- Previously on Sotalol, felt to be no longer effective in the setting of longe r episodes of atrial fibrillation. -- Also previously intolerant of cardizem -- Started Tikosyn load 11/20 -- Tikosyn load started with 250 mcg BID (based on CrCl), however QTc after dose #1 increased. Dose decreased to 125mcg BID starting 913 am. -- CHRISTI/DCCV 11/24 successful conversion to NSR. -- Will continue carvedilol 25 mg BID -- Continue on warfarin for anticoagulation, Goal INR 2.0-3.0. INR today is 1.8. Patient is transitioning to [facility]. Patient monitors INR with Home monitor, w ill plan for recheck on Saturday11/26/18. -- infection control coordinator has previously obtained cost of Tikosyn at [facility] in [place], which is $155.99/monthly. Patient is aware of and able to obtain med at this chen. -- Pharmacy to provide Tikosyn education prior to discharge 4. Hypertension, controlled -- She continues to have intermittent low BP readings, will discontinue amlodipi ne at this time. Continue carvedilol 25 mg BID and losartan 25 mg daily. Will re evaluate BP as outpatient. 5. 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 She continues on home l asix dose of 40 mg daily. -- Would continue current regimen of carvedilol 25 mg BID and losartan 25 mg nadine ly. 6. JJ -- Continue CPAP at all times of rest IMAGING/PROCEDURES/LABS DURING THIS HOSPITALIZATION Echocardiogram Date: 11/20/18 IMPRESSION 1. Normal left ventricular systolic function, with an estimated ejection fra ction of 55%. 2. Normal right ventricular size and systolic function. 3. Very severe right and left atrial dilatation. 4. Moderate tricuspid valve regurgitation. 5. No thrombus seen in the left atrial appendage. There is 1+ spontaneous ec ho contrast seen. No previous study available for comparison. Muñiz laboratory findings during this hospitalization: Most Recent Result within the last 7 days Lab Units 11/24/18 0716 11/21/18 0640 PLATELET COUNT TH/uL 75* < > -- INR 1.8* < > 2.4* CREATININE mg/dL 1.2* < > 1.0 BLOOD UREA NITROGEN mg/dL 24 < > 25 POTASSIUM MEQ/L 3.9 < > 4.4 MAGNESIUM mg/dL 2.1 < > 1.8 THYROID STIMULATING HORMONE uIU/mL -- -- 0.13* < > = values in this interval not displayed. PHYSICAL EXAM BP 114/69 (BP Location: Left arm, Patient Position: Supine) | Pulse 61 | Temp 36.4 C (97.5 F) (Oral) | Resp 18 | Wt 92.3 kg (203 lb 8 oz) | SpO2 95% | BMI 33.86 kg/m Physical Exam Constitutional: She appears well-developed and well-nourished. No distress. HENT: Head: Normocephalic and atraumatic. Cardiovascular: Normal rate, regular rhythm, normal heart sounds and intact dist al pulses. No murmur heard. Pulmonary/Chest: Effort normal and breath sounds normal. Musculoskeletal: Normal range of motion. She exhibits no edema. Neurological: She is alert. No focal deficits Skin: Skin is warm and dry. Psychiatric: She has a normal mood and affect. Her behavior is normal. Judgment and thought content normal. DISCHARGE INSTRUCTIONS Discharge medications: Medication List START taking these medications dofetilide 125 MCG capsule Commonly known as: TIKOSYN 125 mcg, Oral, Every 12 hours CHANGE how you take these medications carvedilol 25 MG tablet Commonly known as: COREG 25 mg, Oral, 2 times daily What changed: how much to take warfarin 2.5 MG tablet Commonly known as: COUMADIN 2.5 mg, Oral, Every evening What changed: how much to take how to take this when to take this additional instructions CONTINUE taking these medications BIOTIN ORAL 10,000 mcg, Oral, Daily esomeprazole 40 MG capsule Commonly known as: NexIUM 40 mg, Oral, Daily furosemide 40 MG tablet Commonly known as: LASIX 40 mg, Oral, Daily losartan 25 MG tablet Commonly known as: COZAAR Daily PARoxetine 10 MG tablet Commonly known as: PAXIL 10 mg, Oral, Daily potassium chloride 10 MEQ CR tablet Commonly known as: KLOR-CON 10 mEq, Oral, Daily STOP taking these medications amLODIPine 5 MG tablet Commonly known as: NORVASC Where to Get Your Medications These medications were sent to [facility] #[id number] [place], [place] - [address] [facility] [address] carvedilol 25 MG tablet dofetilide 125 MCG capsule warfarin 2.5 MG tablet Condition at discharge: Stable Disposition: home Follow up: Kristyn Basurto PA-C on 12/09/2018 with a check-in time of 11:00 [facility] Activity limitations: None Diet: Heart healthy diet Lab testing to be completed after discharge: Protime/INR in 2 day(s) with home m onitor. Cardiac rehabilitation ordered: Cardiac rehabilitiation was not appropriate for this patient and was not ordered. Discharge coordination time: Greater than 30 minutes. This patient is being discharged in collaboration with Dr. Jeanette Toussaint Treatment goals, progress and next steps, as above, were discussed and mutually agreed upon with the patient/family. We appreciate the opportunity to participate in this patient's care. Please do not hesitate to contact us at [phone] should you have any questions. Kristina Conrad NP 11/24/2018 1:34 PM documented in this encounter Discharge Instructions * Instructions* Sandra Booker RN - 11/24/2018 Low-Salt Choices Eating salt(sodium)can make your body retain too much water. Excess water ma kes your heart work harder. Canned, packaged, and frozen foods are easy to prepa re. But they are often high in sodium. Here are some ideas for low-salt foods yo u can easily make yourself. For breakfast Fruit or 100% fruit juice Whole-wheat bread or an Faroese muffin. Look for sodium content on Nutrition Facts labels. Low-fat milk or yogurt Unsalted eggs Shredded wheat [place] tortillas Unsalted steamed rice Regular (not instant) hot cereal, made without salt Stay away from: Sausage, lebron, and ham Flour tortillas Packaged muffins, pancakes, and biscuits Instant hot cereals Cottage cheese For lunch and dinner Fresh fish, chicken, turkey, or meatbaked, broiled, or roasted without gerry t Dry beans, cooked without salt Tofu, stir-fried without salt Unsalted fresh fruit and vegetables, or frozen or canned fruit and vegetables with no added salt Stay away from: Lunch or deli meat that is cured or smoked Cheese Tomato juice and ketchup Canned vegetables, soups, and fish not labeled as [id number] or reduced so dium Packaged gravies and sauces Olives, pickles, and relish Bottled salad dressings For snacks and desserts Yogurt Unsalted, air-popped popcorn Unsalted nuts or seeds Stay away from: Pies and cakes Packaged dessert mixes Pizza Canned and packaged puddings Pretzels, chips, crackers, and nutsunless the label says unsalted Date Last Reviewed: 08/09/201619994615-1167 [employer]. [address] [place] [address] 7. All rights reserved. This information is not intended as a substitute for pro fessional medical care. Always follow your healthcare professional's instruction s. * Attachments The following attachments cannot be sent through Care Everywhere.* DIET, LOW SALT (2GM) (MACEDONIAN) * Salt, Tips for Using Less (Faroese) * Diet, Discharge Instructions for Eating a Low-Salt (Faroese) documented in this encounter Medications at Time [...] 0 tabletIndications: mouth daily. anxiety with depression 11/24/2018 warfarin (COUMADIN) 2.5 Take 1 tablet [...] MG capsuleIndications: mouth daily. gastroesophageal reflux disease 11/03/2018 12/29/2018 losartan (COZAAR) 25 MG daily. 0 tablet 09/04/2018 04/07/2019 potassium chloride Take 10 mEq 0 (KLOR-CON) 10 MEQ CR by mouth tabletIndications: daily. hypokalemia prevention documented as of this encounter Progress Notes * Kristina Conrad NP - 11/24/2018 1:45 PM CDT Patient did report episode of dizziness as she was up around room gathering her belongings for discharge. Denies CP or palpitations. Repeat EKG with NSR. BP danitza ck with SBP in the 80s. Patient has been noted to have lower BPs throughout hosp italization. Amlodipine discontinued for discharge. Patient states she is still eager to be discharged home today. Encouraged patient to monitor BP at home and bring with her to follow up visit. If she has further episodes of dizziness or c ontinued BPs with systolic in the 80s recommend she notify our office. Patient v erbalized understanding and remains eager to be discharged home. * Gavin Garrison PharmD - 11/23/2018 12:54 PM CDT Pharmacist Warfarin Dosing Progress Note Pau Wren is a 68 y.o. female receiving warfarin therapy for prior history atrial fibrillation . Patient was on warfarin prior to admission. Most Recent Home Warfarin Regimen: 2.5 mg M// and 1.25 mg all other days. INR Date Value Ref Range Status 11/23/2018 1.7 (H) 0.8 - 1.2 Final 11/22/2018 1.9 (H) 0.8 - 1.2 Final 11/21/2018 2.4 (H) 0.8 - 1.2 Final Current weight is 92.7 kg (204 lb 4.8 oz) Assessment: Patient's Therapy Goal: INR 2-3 Bleeding Risks: Age > 65 y Plan: Warfarin dose plan: Increase dose per CDTM One time dose of 5 mg [facility] will monitor daily INR and adjust therapy as needed per CDTM agreement. Gavin Garrison PharmD If a patient requires an invasive procedure that necessitates warfarin being hel d it is the responsibility of the physician to communicate this to the pharmacis t or discontinue the warfarin. The pharmacist to dose warfarin order will be dis continued per CDTM agreement and warfarin therapy will no longer be managed by kaylyn lagunas unless re-consulted. * Yuan Burkett Chhaya, SALON SHAMPOO ASSISTANT - 11/23/2018 10:11 AM CDT Cardiology Progress Note Hospital Day: 2 Chief complaint: WADDELL Clinical summary: Pt saw Dr. Daugherty in clinic 11/03 for ongoing SOA related to AF, previously on sotalol with episodes becoming more frequent, developing a CM pre sumed to be tachycardia mediated with EF 35% on recent Echo and normal LHC. Symp toms have been consistent with NYHA III. She had dizziness with diltiazem and ra veronica not well controled on coreg. Decision was made in office with Dr. Daugherty to p roceed with Tikosyn load. CHRISTI this morning showed no thrombus. Tikosyn has been ordered per Dr. Daugherty with plan for DCCV if after 5 doses she remains in AF, fol lowed by ablation. Rates currently are ~130bpm on 3L O2, BP 120-146/90-100's. Home dose of coreg 12 .5mg BID, amlodipine 5mg daily, losartan 25mg daily and lasix 40mg daily along w ith warfarin continued. Muñiz events during this stay: Started on Tikosyn load 11/23: 5th dose of Tikosyn today CHANGES IN THE PAST 24 HOURS: Clinical: Patient is sitting up in bed in [facility]. She denies dizziness, lightheaded ness, shortness of air at rest, chest pain and discomfort, orthopnea, paroxysmal noctural dyspnea, abdominal distention and lower extremity edema. She also den ies dysuria, any difficulty with voiding, blood in the stool including dark, tar ry stools bright red blood in the stool. She does report that she is symptomatic with AF and will note palpitations. 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 Symptomatic recurrent AF 2. Tikosyn load 3. Oral anticoagulation -- Directly admitted due to symptoms -- Previously on Sotalol, felt to be no longer effective in the setting of longe r episodes of atrial fibrillation. -- Also previously intolerant of cardizem -- Started Tikosyn load 11/20 with monitoring with BMP and EKG as per protocol -- Tikosyn load started with 250 mcg BID (based on CrCl), however QTc after dose #1 increased. Dose decreased to 125mcg BID starting 13 am. -- CHRISTI on admit without thrombus in VIRGILIO -- Discussed with Dr. Dickens, will plan for CHRISTI/DCCV 11/24 if she remains in a trial fibrillation after 5 days of Tikosyn. She will be started on Heparin gtt p er AF protocol due to subtherapeutic INR. Discussed low platelet count with Darline browne and was told okay to start Heparin gtt as long a close monitoring of platel ets. Will recheck platelet count tomorrow and monitor for signs of bleeding. -- Will continue carvedilol 25 mg BID -- Continue on warfarin for anticoagulation, INR monitored and warfarin dosed vi a pharmacy. Goal INR 2.0-3.0. INR today is 1.7. -- infection control coordinator has previously obtained cost of Tikosyn at [facility] in [place], which is $155.99/monthly. Patient is aware of and able to obtain med at this chen. -- Pharmacy to provide Tikosyn education prior to discharge 4. Hypertension, controlled -- Patient with some intermittent low blood pressure readings. She is asymptomat ic from this standpoint. -- She continues on amlodipine 5 mg daily, carvedilol 25 mg BID and losartan 25 mg daily. Would hold amlodipine if further episodes of hypotension. 5. 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 She continues on home l asix dose of 40 mg daily. -- Would continue current regimen of carvedilol 25 mg BID and losartan 25 mg nadine ly. 6. JJ -- Started CPAP this week -- Consulted RT to arrange for use of CPAP this admission -- Continue CPAP at all times of rest Note by Yuan Burkett, SALON SHAMPOO ASSISTANT 9/15/19 OBJECTIVE: Vitals: BP: (!) 81/54 Pulse: (!) 104 Temp: 36.5 C (97.7 F) Resp: 17 SpO2: 94 % Patient Vitals for the past 96 hrs: Weight 11/23/18 0640 92.7 kg (204 lb 4.8 oz) 11/22/18 0550 93.5 kg (206 lb 3.2 oz) 11/21/18 0544 94.8 kg (208 lb 14.4 oz) 11/20/18 1044 97.4 kg (214 lb 12.8 oz) Intake/Output Summary (Last 24 hours) at 11/23/2018 1012 Last data filed at 11/23/2018 0643 Gross per 24 hour Intake 820 ml Output Net 820 ml Physical Exam Constitutional: She is oriented to person, place, and time. She appears well-dev eloped and well-nourished. No distress. HENT: Head: Normocephalic. Eyes: Pupils are equal, round, and reactive to light. No scleral icterus. Neck: No JVD present. Cardiovascular: Normal rate and intact distal pulses. No murmur heard. Irregularly Irregular rhythm Pulmonary/Chest: Effort normal and breath sounds normal. No respiratory distress . She has no wheezes. Abdominal: Soft. Bowel sounds are normal. She exhibits no distension. There is n o tenderness. Musculoskeletal: She exhibits no edema. Neurological: She is alert and oriented to person, place, and time. Moves all extremities, no aphasia Skin: Skin is warm and dry. Psychiatric: She has a normal mood and affect. Her behavior is normal. Scheduled medications: amLODIPine 5 mg Oral Daily carvedilol 25 mg Oral BID dofetilide 125 mcg Oral Q12H AMARILYS furosemide 40 mg Oral Daily losartan 25 mg Oral Daily magnesium sulfate 2 g Intravenous Once pantoprazole 40 mg Oral Daily PARoxetine 10 mg Oral Daily potassium chloride 10 mEq Oral Daily warfarin 2.5 mg Oral QPM Infusion medications: Muñiz labs: Recent Labs 11/21/18 0640 11/22/18 0630 11/23/18 0803 INR 2.4* 1.9* 1.7* Recent Labs 11/21/18 0640 11/22/18 0630 11/23/18 0803 NA 138 140 139 K 4.4 3.9 4.2 CL 102 101 99 CO2 29 30 32 BUN 25 22 24 CREAT 1.0 1.0 1.1 GLU 103* 105* 111* MG 1.8 2.0 1.8 No lab components to display No lab components to display Lab Results Component Value Date GLU 111 (H) 11/23/2018 GLU 105 (H) 11/22/2018 GLU 103 (H) 11/21/2018 STAFF ATTESTATION: I, Yuan Burkett APRN, have seen and examined this patient. I have reviewed and edited the details outlined by my colleague Shelli Billingsley in this note as needed. I would add the following muñiz elements of the patient's history, physic al exam and plan after my personal evaluation: Reports having SOA, effort dyspnea, palpitation. Last night QTC Increased >500 msec, and dose was held. Tikosyn restarted at 125 dose today. Tele:Afib with RVR Physical Exam: General: Alert and Oriented to time, place and person Chest: No abnormalities Lungs: Clear to auscultations, no additional breath sounds CV: S1 S2 heard, irregular rate and rhythm, no murmurs heard, no JVD Abd: Soft, no distension, no tenderness, no hepatospleenomegaly Ext: No pedal edema, bilateral pedal pulses 2+ Skin: Warm Increased coreg dose. Monitor QTC closely with Fridericia formula. Monitor BP, occasional increase noted, coreg dose increased today. Continue coumadin. Maintain K>4 an Mg>2. I have performed an independent review of the following: Telemetry Echocardiogram I have discussed the case with the following: Another healthcare provider Yuan Burkett 11/23/2018 10:12 AM * Gavin Garrison PharmD - 11/22/2018 12:54 PM CDT Pharmacist Warfarin Dosing Progress Note Pau Wren is a 68 y.o. female receiving warfarin therapy for prior history atrial fibrillation . Patient was on warfarin prior to admission. Most Recent Home Warfarin Regimen: 2.5 mg M/W/F and 1.25 mg all other days. INR Date Value Ref Range Status 11/22/2018 1.9 (H) 0.8 - 1.2 Final 11/21/2018 2.4 (H) 0.8 - 1.2 Final 11/20/2018 2.8 (H) 0.8 - 1.2 Final Current weight is 93.5 kg (206 lb 3.2 oz) Assessment: Patient's Therapy Goal: INR 2-3 Bleeding Risks: Age > 65 y Plan: Warfarin dose plan: Increase dose per CDTM Dose Comments: Changed to 2.5 mg daily Pharmacy will monitor daily INR and adjust therapy as needed per CDTM agreement. Gavin Garrison PharmD If a patient requires an invasive procedure that necessitates warfarin being hel d it is the responsibility of the physician to communicate this to the pharmacis t or discontinue the warfarin. The pharmacist to dose warfarin order will be dis continued per CDTM agreement and warfarin therapy will no longer be managed by kaylyn lagunas unless re-consulted. * Owen Dickens MD - 11/22/2018 8:22 AM CDT Cardiology Progress Note Hospital Day: 1 Chief complaint: WADDELL Clinical summary: Pt saw Dr. Daugherty in clinic 11/03 for ongoing SOA related to AF, previously on sotalol with episodes becoming more frequent, developing a CM pre sumed to be tachycardia mediated with EF 35% on recent Echo and normal LHC. Symp toms have been consistent with NYHA III. She had dizziness with diltiazem and ra veronica not well controled on coreg. Decision was made in office with Dr. Daugherty to p roceed with Tikosyn load. CHRISTI this morning showed no thrombus. Tikosyn has been ordered per Dr. Daugherty with plan for DCCV if after 5 doses she remains in AF, fol lowed by ablation. Rates currently are ~130bpm on 3L O2, BP 120-146/90-100's. Home dose of coreg 12 .5mg BID, amlodipine 5mg daily, losartan 25mg daily and lasix 40mg daily along w ith warfarin continued. Muñiz events during this stay: Started on Tikosyn load CHANGES IN THE PAST 24 HOURS: Clinical: No acute events overnight. Denies chest pain, palpitations, or shortn ess of breath. No supplemental O2 needed. Pt aware of change to Tikosyn, and a borden of plan for DCCV if therapy fails. No questions at this time. 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 Cont to monitor for need o f extra lasix - continue carvedilol 25mg BID AAT -Tikosyn, will need routine monitoring with BMP and EKG as per protocol -Tikosyn loading with 250mcg BID (based on CrCl), however QTc after dose #1 incr eased. Dose decreased to 125mcg BID starting 9/13 am. - today is Tikosyn #2 at 125mcg BID - plan for DCCV 11/24 if pt remains in atrial fibrillation after 5 days of Tikosy n - continued on warfarin for anticoagulation, INR monitored and warfarin dosed vi a pharmacy JJ -starting CPAP this week -consulted RT to arrange for use of CPAP this admission Diet: simple healthy Code Status: full code DVT Prophylaxis: warfarin Missy Scott Internal Medicine/Pediatrics Resident, PGY-1 I have reviewed this patient and the plan with my attending, Dr. Dickens STAFF ATTESTATION: I, Owen Dickens MD, have seen and examined this patient. I have reviewed and edited the note as needed and agree with the information outlined by Dr. Agnieszka lowry with the following additional remarks: Patient comfortable. Remains in a.fib with controlled ventricular response and acceptable QTc intervals. Continue with current Tikosyn load. Plan for electiv e CHRISTI/cardioversion Saturday depending upon Clinical course. I have performed an independent review of the following: EKG Telemetry I have discussed the case with the following: Family Another healthcare provider Treatment goals, progress and next steps, as above, were discussed and mutually agreed upon with the patient/family. OBJECTIVE: Vitals: BP: (!) 114/94 Pulse: (!) 112 Temp: 36.7 C (98 F) Resp: 18 SpO2: 95 % Patient Vitals for the past 96 hrs: Weight 11/22/18 0550 93.5 kg (206 lb 3.2 oz) 11/21/18 0544 94.8 kg (208 lb 14.4 oz) 11/20/18 1044 97.4 kg (214 lb 12.8 oz) Intake/Output Summary (Last 24 hours) at 11/22/2018 0822 Last data filed at 11/22/2018 0550 Gross per 24 hour Intake 1039.8 ml Output Net 1039.8 ml Physical Exam Constitutional: She is oriented to person, place, and time. She appears well-dev eloped and well-nourished. HENT: Head: Normocephalic. Eyes: Pupils are equal, round, and reactive to light. No scleral icterus. Neck: No JVD present. Cardiovascular: Normal rate and intact distal pulses. No murmur heard. Irregularly Irregular rhythm Pulmonary/Chest: Effort normal and breath sounds normal. No respiratory distress . She has no wheezes. Abdominal: Soft. Bowel sounds are normal. She exhibits no distension. There is n o tenderness. Musculoskeletal: She exhibits no edema. Neurological: She is alert and oriented to person, place, and time. Skin: Skin is warm and dry. Psychiatric: She has a normal mood and affect. Her behavior is normal. Scheduled medications: amLODIPine 5 mg Oral Daily carvedilol 25 mg Oral BID dofetilide 125 mcg Oral Q12H AMARILYS furosemide 40 mg Oral Daily losartan 25 mg Oral Daily pantoprazole 40 mg Oral Daily PARoxetine 10 mg Oral Daily potassium chloride 10 mEq Oral Daily warfarin 1.25 mg Oral Once per day on Sat And warfarin 2.5 mg Oral Once per day on Sat Infusion medications: Muñiz labs: Recent Labs 11/20/18 0811/21/18 0640 11/22/18 0630 INR 2.8* 2.4* 1.9* Recent Labs 11/20/18 0827 11/20/18 0832 11/21/18 0640 11/22/18 0630 NA -- -- 138 140 K 4.4 4.2 4.4 3.9 CL -- -- 102 101 CO2 -- -- 29 30 BUN -- -- 25 22 CREAT 1.2* -- 1.0 1.0 GLU -- -- 103* 105* MG 1.7 -- 1.8 2.0 No lab components to display No lab components to display Lab Results Component Value Date GLU 105 (H) 11/22/2018 GLU 103 (H) 11/21/2018 STAFF ATTESTATION: I, Missy Scott MD, have seen and examined this patient. I have reviewed and edited the details outlined by my colleague Shelli Billingsley in this note as needed. I would add the following muñiz elements of the patient's history, physic al exam and plan after my personal evaluation: Reports having SOA, effort dyspnea, palpitation. Last night QTC Increased >500 msec, and dose was held. Tikosyn restarted at 125 dose today. Tele:Afib with RVR Physical Exam: General: Alert and Oriented to time, place and person Chest: No abnormalities Lungs: Clear to auscultations, no additional breath sounds CV: S1 S2 heard, irregular rate and rhythm, no murmurs heard, no JVD Abd: Soft, no distension, no tenderness, no hepatospleenomegaly Ext: No pedal edema, bilateral pedal pulses 2+ Skin: Warm Increased coreg dose. Monitor QTC closely with Fridericia formula. Monitor BP, occasional increase noted, coreg dose increased today. Continue coumadin. Maintain K>4 an Mg>2. I have performed an independent review of the following: Telemetry Echocardiogram I have discussed the case with the following: Another healthcare provider Missy Scott 11/22/2018 8:22 AM * Maria R Saul, RT - 11/21/2018 11:05 AM CDT Respiratory Care Services Initial RATE Note 11/21/2018 11:05 AM A RATE assessment and treatement plan was performed on Pau Wren, : The primary Pulmonary/Respiratory related diagnosis for assessment on this admis tata is: Cardiac History History: The patient has a self-maintained airway. Home Therapy Review: The patient states no use of: short acting bronchodilators, long acting bronchod ilators and steroids Home medication was validated in the under Prior to Admission Medications activi ty. Patient/Patient's family was able to describe current use. The patient states she does not use oxygen at home. The patient states she does not use other home therapies Social History Review: The patient reports that she has never smoked. She has never used smokeless tob acco. Physical Assessment: Pulse: (!) 108 Resp: 18 SpO2: 97 % Lung Assessment: Respiratory (WDL): X (*WDL=Within Defined Limits; X=Exceptions to WDL) Respiratory Pattern: Respiratory Pattern: Normal Chest Assessment: Chest Assessment: Chest expansion symmetrical Breath Sounds: Bilateral Breath Sounds: Clear;Diminished;Equal The operating protocol was initiated based on the RATE Consult physician order. Based on the patient's history and current physical assessment, the patient bora ts criteria for the following treatment plan(s): Treatment Plan The treatment plan identified for the patient is as follows: Patient does NOT meet criteria for service. Order/Plan Summary Pt had a sleep study and has a CPAP or BiPAP ordered. Pt doesn't want to wear S LH CPAP. Pt is on room air Sat 97%. Pt states no use of respiratory meds. RT will be available as needed. Based on the RATE Criteria being met, the following RATE Protocols will be used: RATE Operating Medical Protocol RATE Home CPAP, BiPAP, Mechanical Ventilation Medical Protocol * Shelli Billingsley, MERCEDEZ - 11/21/2018 8:05 AM CDT Cardiology Progress Note Hospital Day: 0 Chief complaint: WADDELL Clinical summary: Pt saw Dr. Daugherty in clinic 11/03 for ongoing SOA related to AF, previously on sotalol with episodes becoming more frequent, developing a CM pre sumed to be tachycardia mediated with EF 35% on recent Echo and normal LHC. Symp toms have been consistent with NYHA III. She had dizziness with diltiazem and ra veronica not well controled on coreg. Decision was made in office with Dr. Daugherty to p roceed with Tikosyn load. CHRISTI this morning showed no thrombus. Tikosyn has been ordered per Dr. Daugherty with plan for DCCV if after 5 doses she remains in AF, fol lowed by ablation. Rates currently are ~130bpm on 3L O2, BP 120-146/90-100's. Home dose of coreg 12 .5mg BID, amlodipine 5mg daily, losartan 25mg daily and lasix 40mg daily along w ith warfarin continued. Muñiz events during this stay: Started on Tikosyn load CHANGES IN THE PAST 24 HOURS: Clinical: Pt reports SOA with up to shower today, rates 110-120 on tele, no orth opnea, no CP, with some LE edema. No lasix taken yesterday prior to being admitt ed, however has lost weight with today's dose. Pt starting on CPAP for first ti me, to be delivered this week. 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 Cont to monitor for need of extra lasix -increased carvedilol to 25mg BID, reassess rates in am AAT -Tikosyn, will need routine monitoring with BMP and EKG as per protocol -Tikosyn loading with 250mcg BID (based on CrCl), however QTc after dose #1 incr eased. Dose decreased to 125mcg BID starting 913 am. JJ -starting CPAP this week -consulted RT to arrange for use of CPAP this admission I have performed an independent review of the following: Telemetry I have discussed the case with the following: Consulting Physician OBJECTIVE: Vitals: BP: (!) 123/93 Pulse: (!) 123 Temp: 36.4 C (97.6 F) Resp: 22 SpO2: 96 % Patient Vitals for the past 96 hrs: Weight 11/21/18 0544 94.8 kg (208 lb 14.4 oz) 11/20/18 1044 97.4 kg (214 lb 12.8 oz) Intake/Output Summary (Last 24 hours) at 11/21/2018 0805 Last data filed at 11/21/2018 0547 Gross per 24 hour Intake 840 ml Output Net 840 ml Physical Exam Constitutional: She is oriented to person, place, and time. She appears well-dev eloped and well-nourished. HENT: Head: Normocephalic and atraumatic. Eyes: Pupils are equal, round, and reactive to light. Conjunctivae and EOM are n ormal. Neck: Normal range of motion. Neck supple. Cardiovascular: An irregularly irregular rhythm present. Tachycardia present. Pulmonary/Chest: Effort normal. Abdominal: Soft. Bowel sounds are normal. She exhibits no distension. Musculoskeletal: Normal range of motion. She exhibits edema. 1-2+ sriram feet to calves Neurological: She is alert and oriented to person, place, and time. Skin: Skin is warm and dry. Vitals reviewed. Scheduled medications: amLODIPine 5 mg Oral Daily carvedilol 12.5 mg Oral BID dofetilide 250 mcg Oral Q12H AMARILYS furosemide 40 mg Oral Daily losartan 25 mg Oral Daily pantoprazole 40 mg Oral Daily PARoxetine 10 mg Oral Daily potassium chloride 10 mEq Oral Daily warfarin 1.25 mg Oral Once per day on Sat Sat And warfarin 2.5 mg Oral Once per day on Sat Infusion medications: sodium chloride 0.9 % Muñiz labs: Recent Labs 11/20/18 0827 11/21/18 0640 INR 2.8* 2.4* Recent Labs 11/20/18 0827 11/20/18 0832 11/21/18 0640 NA -- -- 138 K 4.4 4.2 4.4 CL -- -- 102 CO2 -- -- 29 BUN -- -- 25 CREAT 1.2* -- 1.0 GLU -- -- 103* MG 1.7 -- 1.8 No lab components to display No lab components to display Lab Results Component Value Date GLU 103 (H) 11/21/2018 STAFF ATTESTATION: I, Radha Almeida MD, have seen and examined this patient. I have reviewed and edited the details outlined by my colleague Shelli Billingsley in this note as needed. I would add the following muñiz elements of the patient's history, physi john exam and plan after my personal evaluation: Reports having SOA, effort dyspnea, palpitation. Last night QTC Increased >500 msec, and dose was held. Tikosyn restarted at 125 dose today. Tele:Afib with RVR Physical Exam: General: Alert and Oriented to time, place and person Chest: No abnormalities Lungs: Clear to auscultations, no additional breath sounds CV: S1 S2 heard, irregular rate and rhythm, no murmurs heard, no JVD Abd: Soft, no distension, no tenderness, no hepatospleenomegaly Ext: No pedal edema, bilateral pedal pulses 2+ Skin: Warm Increased coreg dose. Monitor QTC closely with Fridericia formula. Monitor BP, occasional increase noted, coreg dose increased today. Continue coumadin. Maintain K>4 an Mg>2. I have performed an independent review of the following: Telemetry Echocardiogram I have discussed the case with the following: Another healthcare provider Radha Almeida 11/21/2018 12:40 PM * Katie Sandoval - 11/20/2018 1:21 PM CDT Dofetilide Initiation Pharmacy Consult Pau Wren is being initiated on dofetilide (Tikosyn) for atrial fibrilla tion and atrial flutter. The pharmacy has been consulted to review dofetilide initial dosing based on candice al function, identify drug interactions, review labs, and provide discharge [facility] counseling. Relevant clinical data and objective history reviewed: Lab Results Component Value Date/Time CREAT 1.2 (H) 11/20/2018 08:27 AM MG 1.7 11/20/2018 08:27 AM K 4.2 11/20/2018 08:32 AM K 4.4 11/20/2018 08:27 AM Current medications include: Scheduled Meds: amLODIPine 5 mg Oral Daily biotin 10,000 mcg Oral Daily carvedilol 12.5 mg Oral BID dofetilide 125 mcg Oral Q12H AMARILYS furosemide 40 mg Oral Daily lidocaine (pf) losartan 25 mg Oral Daily pantoprazole 40 mg Oral Daily PARoxetine 10 mg Oral Daily phenylephrine HCl in 0.9% NaCl potassium chloride 10 mEq Oral Daily propofol [START ON 11/25/2018] warfarin 1.25 mg Oral Q Saturday warfarin 1.25 mg Oral Q [START ON 11/21/2018] warfarin 2.5 mg Oral Q MWF Continuous Infusions: sodium chloride 0.9 % PRN Meds:acetaminophen OR acetaminophen, aluminum-magnesium hydroxide-simeth icone, docusate sodium, magnesium sulfate in water, magnesium sulfate, magnesium sulfate, miconazole nitrate, nitroglycerin, polyethylene glycol, potassium chlo ride OR potassium bicarb-citric acid OR potassium chloride in water, zol pidem Assessment/Plan 1. I have personally reviewed current medications for any possible interactions with dofetilide. No significant drug interactions identified. 2. The patient is currently therapeutically anticoagulated if using for atrial f ibrillation/flutter: Yes 3. The most recent (within the last 24 hrs) potassium and magnesium are within n ormal ranges: Yes 4. Baseline ECG has been completed, QTc has been documented in the dofetilide mo nitoring flowsheet, and QTc is within appropriate parameters to initiate dofetil divya: Yes 5. Based on a calculated creatinine clearance (using actual body weight) of 67.1 mL/min the ordered dose of 125 mcg is not recommended. I discussed dofetilide d osing with Dr. Almeida who wishes to proceed with a dose of 250 mcg BID due to c oncern of borderline Qtc. 6. Dofetilide medication education will be provided to the patient prior to disc harge. Katie Sandoval PharmD Candidate * Katie Sandoval - 11/20/2018 12:12 PM CDT Pharmacist Warfarin Dosing Progress Note Pau Wren is a 68 y.o. female receiving warfarin therapy for prior history atrial fibrillation . Patient was on warfarin prior to admission. Most Recent Home Warfarin Regimen: 2.5 mg M/W/F and 1.25 mg all other days. INR Date Value Ref Range Status 11/20/2018 2.8 (H) 0.8 - 1.2 Final Current weight is 97.4 kg (214 lb 12.8 oz) Assessment: Patient's Therapy Goal: INR 2-3 Bleeding Risks: Age > 65 y Plan: Warfarin dose plan: Continue home dose Dose Comments: INR close to top of goal range at 2.8, will proceed with home dos es and monitor from there. Pharmacy will monitor daily INR and adjust therapy as needed per CDTM agreement. Katie Sandoval PharmD Candidate If a patient requires an invasive procedure that necessitates warfarin being hel d it is the responsibility of the physician to communicate this to the pharmacis t or discontinue the warfarin. The pharmacist to dose warfarin order will be dis continued per CDTM agreement and warfarin therapy will no longer be managed by kaylyn lagunas unless re-consulted. documented in this encounter H&P Notes * Radha Almeida MD - 11/20/2018 9:35 AM CDT [facility] History and Physical Date:11/20/2018 Author: Shelli Billingsley APRN Pt saw Dr. Daugherty in clinic 11/03 for ongoing SOA related to AF, previously on sot alol with episodes becoming more frequent, developing a CM presumed to be tachyc ardia mediated with EF 35% on recent Echo and normal LHC. Symptoms have been con sistent with NYHA III. She had dizziness with diltiazem and rates not well contr oled on coreg. Decision was made in office with Dr. Daugherty to proceed with Tikosy n load. CHRISTI this morning showed no thrombus. Tikosyn has been ordered per Dr. Ra fernando with plan for DCCV if after 5 doses she remains in AF, followed by ablation. Rates currently are ~130bpm on 3L O2, BP 120-146/90-100's. Home dose of coreg 12 .5mg BID, amlodipine 5mg daily, losartan 25mg daily and lasix 40mg daily along w ith warfarin continued. Shelli Billingsley RN, CABIN EQUIPMENT SUPERVISOR-BC The note below was copied from a recent office visit and the physical exam and r elevant portions of the history were updated where relevant. On the day of presentation, patient's vital signs were BP (!) 146/98 (BP Locatio n: Right arm, Patient Position: Lying left side) | Pulse (!) 130 | Temp 36.7 C (98.1 F) (Temporal) | Resp 18 | SpO2 92% Appointment Date: 11/03/2018 RE: Pau Wren : 1950 Visit provider: Lauro Daugherty MD I had the pleasure of seeing Pau Wren in the office today. She is a(n) 68 y .o. female and presents with the following chief complaint(s): Atrial flutter an d Atrial fibrillation HPI: I saw Ms. Wren today accompanied by her in clinic. I saw her at her r equest in electrophysiology consultation for further evaluation of her atrial fi brillation. I was asked to provide further recommendations for evaluation and m anagement. As you may recall, she had been extremely active until January when she develop ed shortness of breath. She underwent workup at that time and initial evaluatio n did show that she was in atrial fibrillation with a rapid ventricular response . Of note, she has had problems with paroxysmal atrial fibrillation now for at least a decade, effectively treated with sotalol. Over the course of last year, she noted that the sotalol was no longer effective and she was developing more frequent and longer episodes of atrial fibrillation. In January, she underwent an echocardiogram in the office. This did show dimin ished LV systolic function with an estimated ejection fraction of 35%. She was admitted and underwent angiography, which showed no significant coronary artery disease. It is felt that likely her cardiomyopathy was secondary to a rate-rela nakita cardiomyopathy from the atrial fibrillation. She remains extremely short of breath consistent with [place] Heart [employer] class III status. She has had no syncope or near syncope. She reports no PND or orthopnea. She was started on diltiazem initially but developed severe lightheadedness. Th is was changed to carvedilol. She has been on that since then for suboptimal ra te control. She is on Coumadin for anticoagulation. 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 A bnormal left ventricular systolic function consistent with a nonischemic cardiom yopathy. HYSTERECTOMY 03/2003 REPAIR, ROTATOR CUFF Right 04/2009 Final Medications: CurrentMedications Current Outpatient Medications Medication Sig Dispense Refill amLODIPine (NORVASC) 5 MG tablet daily. BIOTIN ORAL Take 10,000 mcg by mouth daily. carvedilol (COREG) 25 MG tablet Take 12.5 mg by mouth 2 (two) times a day. esomeprazole (NEXIUM) 40 MG capsule Take 40 mg by mouth daily. furosemide (LASIX) 40 MG tablet Take 40 mg by mouth daily. losartan (COZAAR) 25 MG tablet daily. PARoxetine (PAXIL) 10 MG tablet Take 10 mg by mouth daily. potassium chloride (KLOR-CON) 10 MEQ CR tablet Take 10 mEq by mouth daily. warfarin (COUMADIN) 2.5 MG tablet as directed. directed by INR No current facility-administered medications for this visit. [...] Used Substance Use Topics Alcohol use: Yes Comment: 7 drinks per week Drug use: Never Review of Systems Constitution: Positive for malaise/fatigue (x 9 month, worse x 1 month). Negativ e for fever and night sweats. HENT: Negative for nosebleeds. Eyes: Negative for vision loss in left eye and vision loss in right eye. Cardiovascular: Positive for dyspnea on exertion (gradually worsened since last January, worse last 2 months), irregular heartbeat (with taking pulse), leg swe lling (bilateral ), palpitations (often) and paroxysmal nocturnal dyspnea (ocasi onal). Negative for chest pain, claudication, near-syncope, orthopnea and syncop e. Respiratory: Positive for sleep disturbances due to breathing (had sleep study; getting set up with CPAP), snoring and wheezing. Negative for cough, hemoptysis and shortness of breath. Endocrine: Negative for cold intolerance and polydipsia. Hematologic/Lymphatic: Bruises/bleeds easily. Skin: Positive for rash (legs, around the time started carvedilol). Musculoskeletal: Positive for joint pain (hip, bilateral). Negative for muscle w eakness and myalgias. Gastrointestinal: Positive for dysphagia (x yrs, no current tx). Negative for he matochezia, nausea and vomiting. Genitourinary: Negative for hematuria. Neurological: Positive for excessive daytime sleepiness. Negative for brief para lysis, disturbances in coordination, dizziness, light-headedness, loss of balanc e, numbness, paresthesias and weakness. All other systems reviewed and are negative. Vitals Vital Signs 11/03/18 1305 BP: 99/63 Pulse: 85 Weight: 95.7 kg (211 lb) Height: 1.651 m (5' 5") BMI: Body mass index is 35.11 kg/m. Physical Exam Constitutional: She is oriented to person, place, and time. She appears well-dev eloped and well-nourished. HENT: Head: Normocephalic. Eyes: Pupils are equal, round, and reactive to light. Neck: No JVD present. No thyromegaly present. Cardiovascular: S1 normal, S2 normal, normal heart sounds and intact distal puls es. An irregularly irregular rhythm present. Tachycardia present. Exam reveals n o gallop, no S3, no S4 and no friction rub. No murmur heard. Pulses: Carotid pulses [...] and thought content normal. Vitals reviewed. EKG: Atrial Fibrillation and at 109 bpm Encounter Diagnoses Name Primary? 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 Cardiomyopathy defined by the following: a. Nonischemic in nature confirmed by angiography. b. Likely related to a tachycardia-mediated cardiomyopathy from her atrial fibr illation. c. Associated with class III heart failure symptoms. 2. Atrial fibrillation characterized by the following: a. Now persistent for the past 7-8 months. b. Probably associated with a rate-related cardiomyopathy as above. c. Refractory to sotalol. 3. Mitral regurgitation, likely functional. 4. Long-term use of anticoagulation. CHADS Evaluation: CHADS2 Risk: Age < 75 (0) HTN (1) CHF (1) CHADS2-VASc Risk: Female 66-74 (2) HTN (1) CHF (1) CHADS Risk Score: Moderate risk (4-7%) - Score: CHADS=2-3 or CHADS2-VASc=4-5. Plan: We spent a long time today discussing her options. They do include the followin . We proceed with loading of a different antiarrhythmic drug such as dofetilid e or amiodarone to see if we can achieve more effective rhythm control. This wo uld likely require CHRISTI prior to the loading. 2. Proceed with attempts at more effective rate control, whether it is through medications or through an AV node ablate and BANQUET STEWARD-P device. This would hopefully result in improvement of her overall LV systolic function. It would render her pacer dependent and she does understand. 3. We will proceed with catheter ablation for atrial fibrillation. Given the f act that it has been persistent now for 8 months, I quoted a 60-70% success over all with an ablation and probably a 1 in 5 risk for need for redo. We discussed risks, including a 1 in 300 for cardioembolic event and 1 in 300 for perforatio n. We discussed complications related to a transseptal approach as well as to g roin bleed, possibly requiring emergent surgery. We discussed risks of atrial e sophageal fistula as well as phrenic nerve injury. Overall, I believe she has a very reasonable chance for success with a combination of both ablation and anti arrhythmic drug with anticipation that it will likely require more than 1 proced ure to accomplish this. At this point, she wishes to proceed with loading another antiarrhythmic drug. We discussed risks and benefits of both amiodarone as well as Tikosyn. She wish ed to proceed with Tikosyn loading. We will, therefore, plan the following: a. I will have her admitted where she will undergo CHRISTI to confirm absence of left atrial appendage clot. b. If this is confirmed, then we will admit her for Tikosyn loading. c. If she has not converted by the dose number 5 of her Tikosyn, we will p roceed with a cardioversion at that time. She understands to remain on the Coumadin and it would be best if she proceeds w ith weekly checks on her INRs. If she develops early recurrence of her atrial fibrillation prior to discharge o r she is unable to be cardioverted, then I would recommend stopping the Tikosyn at that point and loading her on IV amiodarone over a 24-48 hour period followed by another attempt at DC cardioversion. This will at least help tell us how sy mptomatic her atrial fibrillation really is. Of this 60 minute office visit more than 50% of the time was spent in counseling and answering their questions about cardiac ablation. Treatment goals, progress and next steps, as above, were discussed and mutually agreed upon with the patient/family. Thank you for allowing me to participate in Pau Wren's care. If I can be o f any further assistance, please do not hesitate to contact me. Sincerely, Lauro Daugherty MD /lmb STAFF ATTESTATION: I, Radha Almeida MD, have seen and examined this patient. I have reviewed and edited the details outlined by my colleague Shelli Chou in this note as needed. I would add the following muñiz elements of the patient's history, physic al exam and plan after my personal evaluation: Admitted for persistent Atrial fibrillation. Planned for CHRISTI today, negative for LA appendage thrombus. Planned admission for Tikosyn loading. Denies any chest pain, lightheadedness. Denies any orthopnea, PND or pedal edema . Lead II QTc on Bazett formula and fridericia formula 430 - 439 msec. Tele: Afib with rVR Physical Exam: General: Alert and Oriented to time, place and person Chest: No abnormalities Lungs: Clear to auscultations, no additional breath sounds CV: S1 S2 heard, irregular rate and rhythm, no murmurs heard, no JVD Abd: Soft, no distension, no tenderness, no hepatospleenomegaly Ext: No pedal edema, bilateral pedal pulses 2+ Skin: Warm Start Tikosyn loading at 125 mg dose. Plan for 5 dose loading, If afib persistent despite 5 doses, plan for cardio version. Continue coumadin for anticoagulation. BP elevated post procedure, resume home meds and monitor. On amlodipine, core g and losartan Maintain K>4 and Mg>2. On daily lasix for optivolemia. On coreg, amlodipine and losartan for cardiomyopathy. If BP remains elevated, consider changing entresto to losartan. I have performed an independent review of the following: Telemetry Echocardiogram I have discussed the case with the following: Family Another healthcare provider Radha Almeida 11/20/2018 12:21 PM documented in this encounter Procedure Notes * Krystle Sanches MD - 11/24/2018 9:33 AM CDT Associated Order(s): Electrical Cardioversion Post-Procedure Diagnose(s): Persistent atrial fibrillation (HCC) Electrical Cardioversion Date/Time: 11/24/2018 9:33 AM Performed by: Owen Dickens MD Authorized by: Krystle Sanches MD Consent: Verbal consent obtained. Written consent obtained. Risks and benefits: risks, benefits and alternatives were discussed Consent given by: patient Patient understanding: patient states understanding of the procedure being perfo rmed Patient consent: the patient's understanding of the procedure matches consent gi jose miguel Procedure consent: procedure consent matches procedure scheduled Relevant documents: relevant documents present and verified Test results: test results available and properly labeled Site marked: the operative site was not marked Imaging studies: imaging studies available Required items: required blood products, implants, devices, and special equipmen t available Patient identity confirmed: verbally with patient and arm band Time out: Immediately prior to procedure a "time out" was called to verify the c orrect patient, procedure, equipment, customer support associate and site/side marked as requ ired. Sedation: Patient sedated: yes Pre-procedure rhythm: atrial fibrillation Patient position: patient was placed in a supine position Chest area: chest area exposed Electrodes: pads Electrodes placed: anterior-posterior Number of attempts: 1 Attempt 1 mode: synchronous Attempt 1 waveform: biphasic Attempt 1 shock (in Joules): 200 Attempt 1 outcome: conversion to normal sinus rhythm Post-procedure rhythm: normal sinus rhythm Complications: no complications Patient tolerance: Patient tolerated the procedure well with no immediate compli cations documented in this encounter Consult Notes * Joseline Soni RN - 11/20/2018 1:53 PM CDT Associated Order(s): CONSULT TO CARE PROGRESSION Consult received for acquisition of Dofetilide. Patient's copay will be $155.99 monthly. CC met with patient and and they are ok with that cost. If correct dosage is known by Saturday (11/21/18) afternoon, please send script to [facility] pharmacy to be filled by the Meds to Beds program. Also, CC spoke with patient's pharmacy, [facility] in [place], [place] Phone: . They have both the 250mcg and they are ordering the 125mcg strength that should come in tomorrow. They are open 9-6p on Saturday, and 11-6pm on Saturday. CC did NOT call in script. documented in this encounter Nursing Notes * Kortney Mendoza RN - 11/23/2018 10:00 AM CDT ECG checked this AM by Dr. Mendoza, fellow rounding with helena Beaver re giving 5th dose. The fellow did not calculate via calibers, looked at the ECG and stated "it looks similar to the previous ones, should be good to give". RN then questioned the order d/t fellow not following the protocol, and asked to sp eak with Dr. Dickens. He said "no it should be okay" and proceeded to then com aminae [id number] with the previous ECG from the chart with the most recent one. He counted outloud doing some math in his head and again stated "yeah it's the same, it's okay to give the next dose". RN proceeded with verbal order, gave 5th dose and obtained ECG. * Shelli Billingsley APRN - 11/21/2018 8:58 AM CDT QTc for EKG this morning is 409ms in lead II (Fredericia). Changed Tikosyn from 250mcg to 125mcg. Shelli Billingsley RN, CABIN EQUIPMENT SUPERVISOR-BC * Shelli Billingsley APRN - 11/20/2018 1:34 PM CDT Initial QTc is 360ms in lead II on EKG 11/20, per Dr. Almeida. Shelli cox RN, CABIN EQUIPMENT SUPERVISOR-BC documented in this encounter Miscellaneous Notes * Provider Clarification Response - Jeanette Toussaint MD - 12/08/2018 1:15 PM CDT [facility] Query Respons e Note PATIENT: PAU WREN : 1950 ADMIT DATE: 11/20/2018 7:23 AM DISCH DATE: 11/24/2018 2:22 PM RESPONDING PROVIDER #: [id number] RESPONSE TEXT: The patient has paroxysmal atrial fibrillation. QUERY TEXT: Atrial fibrillation is documented in the medical record. Thank you Please clarify the type: Chronic Paroxysmal Permanent Persistent Other (please document in the medical record) Clinically unable to determine The patient's Clinical Indicators include: Patient presented with atrial fibrillation. Patient initiated on Tikosyn with 2 50mcg BID however QTc after dose one increased so dosing was decreased to 125mcg BID. She remained in Afib so she had CHRISTI/DCCV completed the morning of discharge with successful conversion to NSR per discharge summary. Electronic cardiovers ion 11/24 Persistent atrial fibrillation, procedural note and discharge summary. H&P, Of note, she has had problems with paroxysmal atrial fibrillation now for at least a decade, effectively treated with sotalol. Phone: Options provided: -- Chronic -- Paroxysmal -- Permanent -- Persistent -- Other (please document in the medical record) -- Clinically unable to determine Query created by: Isabella Young on 11/26/2018 12:50 PM Electronically signed by: JEANETTE TOUSSAINT MD 12/08/2018 1:14 PM * Plan of Care - Sandra Booker RN - 11/24/2018 11:49 AM CDT Problem: Nutrition Goal: Patient's nutritional intake is adequate Outcome: Progressing * Multidisciplinary Discharge Rounds Note - Richa Crowder RN - 11/24/2018 9:30 AM CDT Care Progression Multidisciplinary Discharge Rounds Note Patients Anticipated discharge disposition: Home Self Care Discharge Comments: Anticipate home soon, Cardioversion today, Tikosyn 125 mcg B ridging Coumadin goal 2.0 - 3.0 INR today 1.7 The following are potential DC Needs/Barriers: Other(specifics in sticky note)(C ardioversion today, INR 1.7 goal is 2.0-3.0 Heparin gtt bridge) Consults needed and/or active: Consults Needed: Professor Of Rhetoric Disciplines Present: Professor Of Rhetoric, Nursing Administration, Pharmacy, Primary RN, Social Work, Dance Critic Carmela Crowder FORENSIC ARTIST Professor Of Rhetoric Ext. [id number] 11/24/18 * Plan of Care - Jeannette Pablo RN - 11/24/2018 6:45 AM CDT Problem: Knowledge Deficit Goal: Patient/family/caregiver demonstrates understanding of disease process, tr eatment plan, medications, and discharge instructions Outcome: Progressing Goal: Patient/Family/Caregiver sets realistic goals Outcome: Progressing Problem: Pain Goal: Patient's pain/discomfort is manageable Outcome: Progressing Problem: Skin Integrity Goal: Skin integrity is maintained or improved Outcome: Progressing Problem: Impaired Tissue Perfusion R/T decreased pumping ability of the heart fr om dysrrhythmia Goal: Absence of chest pain, palpitations or fluttering/presenting symptoms Outcome: Progressing Goal: Cardiac rhythm controlled Outcome: Progressing Problem: Deficient Knowledge R/T lack of exposure to information on condition, t ests, treatment and self-care Goal: Patient/family/caregiver demonstrates understanding of disease process, tr eatment plan, medications, and discharge instructions Outcome: Progressing * End of Shift Note - Jeannette Pablo RN - 11/24/2018 6:30 AM CDT End of Shift Summary Note Patient remained in Afib overnight. Heparin gtt infused; first heparin assay sup ra-therapeutic, and rate adjusted per protocol. Plan for CHRISTI/DCCV today. * End of Shift Note - Jeannette Pablo RN - 11/23/2018 6:09 AM CDT End of Shift Summary Note No complaints overnight. Tikosyn given. Remained in Afib with HR 90-110. Plan to receive 5th dose of lowered Tikosyn dose this AM, if QTC allows. * Plan of Care - Jeannette Pablo RN - 11/23/2018 3:41 AM CDT Problem: Knowledge Deficit Goal: Patient/family/caregiver demonstrates understanding of disease process, tr eatment plan, medications, and discharge instructions Outcome: Progressing Goal: Patient/Family/Caregiver sets realistic goals Outcome: Progressing Problem: Pain Goal: Patient's pain/discomfort is manageable Outcome: Progressing Problem: Skin Integrity Goal: Skin integrity is maintained or improved Outcome: Progressing Problem: Safety Goal: Patient will be injury free during hospitalization Outcome: Progressing Problem: Nutrition Goal: Patient's nutritional intake is adequate Outcome: Progressing Problem: Impaired Tissue Perfusion R/T decreased pumping ability of the heart fr om dysrrhythmia Goal: Tissue perfusion is adequate - arterial Outcome: Progressing Goal: Maintain cardiac output Outcome: Progressing Goal: Absence of chest pain, palpitations or fluttering/presenting symptoms Outcome: Progressing Goal: Cardiac rhythm controlled Outcome: Progressing Problem: Deficient Knowledge R/T lack of exposure to information on condition, t ests, treatment and self-care Goal: Patient/family/caregiver demonstrates understanding of disease process, tr eatment plan, medications, and discharge instructions Outcome: Progressing * End of Shift Note - Tomasa Traore RN - 11/22/2018 6:56 PM CDT End of Shift Summary Note Continue Tikosyn, remains in a fib. Walked a short distance in halls, some short ness of air present. * End of Shift Note - Jeannette Pablo RN - 11/22/2018 5:52 AM CDT End of Shift Summary Note No acute events overnight. Lowered dose of Tikosyn given last evening as ordered ; Remained in afib with HR ranging 95-130. Othostatic this AM; however, patient is asymptomatic. Patient reports improvement in dyspnea on exertion. No complain ts at this time. * Plan of Care - Jeannette Pablo RN - 11/22/2018 5:51 AM CDT Problem: Knowledge Deficit Goal: Patient/family/caregiver demonstrates understanding of disease process, tr eatment plan, medications, and discharge instructions Outcome: Progressing Goal: Patient/Family/Caregiver sets realistic goals Outcome: Progressing Problem: Pain Goal: Patient's pain/discomfort is manageable Outcome: Progressing Problem: Impaired Tissue Perfusion R/T decreased pumping ability of the heart fr om dysrrhythmia Goal: Absence of chest pain, palpitations or fluttering/presenting symptoms Outcome: Progressing Goal: Cardiac rhythm controlled Outcome: Progressing Problem: Deficient Knowledge R/T lack of exposure to information on condition, t ests, treatment and self-care Goal: Patient/family/caregiver demonstrates understanding of disease process, tr eatment plan, medications, and discharge instructions Outcome: Progressing * End of Shift Note - Tomasa Traore RN - 11/21/2018 4:41 PM CDT End of Shift Summary Note Tikosyn resumed at 125mcg BID. Coreg increased, remains in a fib 100s-120s. Thyr oid labs resulted. Patient still c/o dyspnea with walking to the bathroom. * Discharge Planning - Richa Crowder RN - 11/21/2018 1:08 PM CDT Discharge Planning Interventions General Discharge Note CC contacted [facility] [phone] patient's pharmacy for acquirring Tikosyn 125 mcg. Pharmacist Lauro has 60 capsules available for this dose. Patient will dis charge possibly Saturday and pharmacy will be open from 11:00 to 18:00pm. CC notif ied Tomasa ANDREA patient's nurse. Carmela Crowder RN BSN Professor Of Rhetoric Ext. [id number] 11/21/18 * Multidisciplinary Discharge Rounds Note - Richa Crowder RN - 11/21/2018 9:30 AM CDT Care Progression Multidisciplinary Discharge Rounds Note Patients Anticipated discharge disposition: Home Self Care Discharge Comments: Possible cardioversion Saturday. Tikosyn dose decreased to 125 mg Anticipate discharge soon The following are potential DC Needs/Barriers: Other(specifics in sticky note)(T ikosyn load second dose 125 mg) Consults needed and/or active: Consults Needed: Professor Of Rhetoric Disciplines Present: Professor Of Rhetoric, Nursing Administration, Pharmacy, Primary RN, Social Work, Dance Critic Carmela Crowder RN BSN Professor Of Rhetoric Ext. [id number] 11/21/18 * Multidisciplinary Discharge Rounds Note - Richa Crowder RN - 11/21/2018 9:30 AM CDT Care Progression Multidisciplinary Discharge Rounds Note Patients Anticipated discharge disposition: Home Self Care Discharge Comments: Possible cardioversion Saturday. Tikosyn dose decreased to 125 mg Anticipate discharge soon The following are potential DC Needs/Barriers: Other(specifics in sticky note)(T ikosyn load second dose 125 mg) Consults needed and/or active: Disciplines Present: Professor Of Rhetoric, Nursing Administration, Pharmacy, Primary RN, Social Work, Dance Critic Carmela Crowder RN BSN Professor Of Rhetoric Ext. [id number] 11/21/18 * End of Shift Note - Debbie Quarles RN - 11/21/2018 5:39 AM CDT End of Shift Summary Note Dr. Medina decided to hold PM tikosyn dose due to increased QTc. Possibly resum e in AM after EKG reading. If no conversion, to do cardioversion on Saturday. VSS. No acute events. * Plan of Care - Debbie Quarles RN - 11/21/2018 5:37 AM CDT Problem: Knowledge Deficit Goal: Patient/family/caregiver demonstrates understanding of disease process, tr eatment plan, medications, and discharge instructions Outcome: Progressing Goal: Patient/Family/Caregiver sets realistic goals Outcome: Progressing Problem: Pain Goal: Patient's pain/discomfort is manageable Outcome: Progressing Problem: Skin Integrity Goal: Skin integrity is maintained or improved Outcome: Progressing Problem: Safety Goal: Patient will be injury free during hospitalization Outcome: Progressing Problem: Nutrition Goal: Patient's nutritional intake is adequate Outcome: Progressing Problem: Impaired Tissue Perfusion R/T decreased pumping ability of the heart fr om dysrrhythmia Goal: Tissue perfusion is adequate - arterial Outcome: Progressing Goal: Maintain cardiac output Outcome: Progressing Goal: Absence of chest pain, palpitations or fluttering/presenting symptoms Outcome: Progressing Goal: Cardiac rhythm controlled Outcome: Progressing Problem: Deficient Knowledge R/T lack of exposure to information on condition, t ests, treatment and self-care Goal: Patient/family/caregiver demonstrates understanding of disease process, tr eatment plan, medications, and discharge instructions Outcome: Progressing * End of Shift Note - Isabella Villegas RN - 11/20/2018 7:44 PM CDT Patient with no complaints of pain, VSS. Afib on tele at times rate going up to 120's. CC GRADES 6 THROUGH 8 TEACHER was notified of EKG needing to be read at 1650 for 2nd dose of diego syn to be given during W2 shift. CC fellow was notified and read EKG when nursin g did not hear back from daytime CC no note was written. See the fellow's note f or his orders. End of Shift Summary Note * Significant Event - Hermann Medina MD - 11/20/2018 7:26 PM CDT Received a call from the RN stating that the EKG post first dose of tikosyn was not read during the day. Hence, RN contacted us just now to read the EKG (2 hour s post-tikosyn) Reviewed Dr. Almeida's note regarding the patient's QTc EKG 11/20/18 at 10:24 am: QTc 485 msec by Bazett and 439 msec by Fridericia EKG 11/20/18 at 15:54: QTc 510 msec by Bazett and 462 msec by Fridericia Given that the QTc is somewhat more prolonged and > 500 by Bazett's, will hold next dose of tikosyn. May consider tikosyn 125msec qDay as opposed to BID. Case discussed with Dr. Luna. Hermann Medina CV Fellow * Care Progression Initial Assessment - Joseline Soni RN - 11/20/2018 1:50 PM CDT Care Progression Initial Assessment Note Reason for Hospitalization: Tikosyn has been ordered per Dr. Daugherty with plan for DCCV if after 5 doses she remains in AF, followed by ablation . She is and she drives. She uses no DME. Anticipate Discharge Plan: Home self care In Home Support: yes Marital Status: Transportation at Discharge: Transportation to Appointments: self Previous Home Services: no Previous Home Infusion: no Home O2: no Previous Placement Services: no RX Coverage: yes Able to afford medications: yes Patient's Preferred Pharmacy: [facility][id number] - [place], [place] - [address] [facility] [address] [facility] [id number] [facility] [facility] [address] PCP: Yulissa Zapata MD [phone] Face Sheet Verified: Yes Referral to see patient was placed by Referral Source: Care Progression Referral Name: Joseline Soni RNCC, Referral Reason: Discharge planning, Initi al Assessment, Other (Comment)(medication discussion) Initial assessment completed and Information obtained from: : patient, spouse, a nd EMR Introduced self and purpose of meeting with the patient and is agreeable to inte rview at this time. 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 Not employed: Retired, Sher nment Assistance: Medicare Income/Expense Information: Income meets expenses Resources Available: Rx benefits Current Community Resources: (none) documented in this encounter Plan of Treatment Order Schedule Name Type Priority Associated Diag noses Expected: 11/24/2018, Expires: 0 Ambulatory Referral to Outpatient Routine Persist ent atrial Anticoagulation Referral fibrillation (HCC) Monitoring documented as of this encounter Procedures Comments Procedure Name Priority Date/Time Associated Diag nosis ECG Routine 11/24/2018 1:37 PM CDT ECHO TRANSESOPHAGEAL WITH Routine 11/24/2018 CARDIOVERSION WITH COLOR 9:45 AM CDT FLOW AND DOPPLER ELECTRICAL CARDIOVERSION Routine 11/24/2018 Persi stent atrial 9:33 AM CDT fibrillation (HCC) HEPARIN ANTI FACTOR XA, Timed 11/24/2018 UNFRACTIONATED HEPARIN 7:25 AM CDT PROTHROMBIN TIME/INR Routine 11/24/2018 7:16 AM CDT PLATELET Routine 11/24/2018 7:16 AM CDT MAGNESIUM Routine 11/24/2018 7:16 AM CDT BASIC METABOLIC PANEL Routine 11/24/2018 7:16 AM CDT HEPARIN ANTI FACTOR XA, STAT 11/23/2018 UNFRACTIONATED HEPARIN 11:11 PM CDT ECG Routine 11/23/2018 1:02 PM CDT PROTHROMBIN TIME/INR Routine 11/23/2018 8:03 AM CDT PLATELET Add-On 11/23/2018 8:03 AM CDT MAGNESIUM Routine 11/23/2018 8:03 AM CDT BASIC METABOLIC PANEL Routine 11/23/2018 8:03 AM CDT ECG Routine 11/22/2018 10:49 PM CDT ECG Routine 11/22/2018 10:27 AM CDT PROTHROMBIN TIME/INR Routine 11/22/2018 6:30 AM CDT MAGNESIUM Routine 11/22/2018 6:30 AM CDT BASIC METABOLIC PANEL Routine 11/22/2018 6:30 AM CDT ECG Routine 11/21/2018 11:09 PM CDT ECG Routine 11/21/2018 11:34 AM CDT ECG Routine 11/21/2018 8:51 AM CDT ECG Routine 11/21/2018 6:46 AM CDT TRIIODOTHYRONINE Add-On 11/21/2018 6:40 AM CDT THYROID CASCADE Add-On 11/21/2018 6:40 AM CDT T4 FREE Add-On 11/21/2018 6:40 AM CDT PROTHROMBIN TIME/INR Routine 11/21/2018 6:40 AM CDT MAGNESIUM Routine 11/21/2018 6:40 AM CDT BASIC METABOLIC PANEL Routine 11/21/2018 6:40 AM CDT ECG Routine 11/20/2018 3:54 PM CDT ECG Routine 11/20/2018 10:24 AM CDT ECHO TRANSESOPHAGEAL WITH Routine 11/20/2018 Atri al fibrillation, COLOR FLOW AND DOPPLER 9:30 AM CDT unspecified ty pe (HCC) 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 QRSd 100 [facility] QT 460 [facility] QTC 444 [facility] ECGHR 56 [facility] ECGPR 176 [facility] Specimen Narrative Performed At [facility] Test Date: 2018-11-24 Pat Name: PAU WREN Department: HN6 Room: [facility] Gender: Female Rn Cardiac: [id number] : 1950 Requested By: LAURO DAUGHERTY Order Number: [id number] Jessica MD: Aime Steiner Measurements Intervals Ceres Rate: 56 P: 31 DC: 176 QRS: 7 QRSD: 100 T: 71 QT: 460 QTc: 444 Interpretive Statements SINUS RHYTHM T wave inversion anteriorly, consider i schemia Electronically Signed On 11-27-2018 11:1 3:43 CDT by Aime Stiener Procedure Note Interface, External Ris In - 11/27/2018 11:13 AM CDT [facility] Test Date: 2018-11-24 Pat Name: PAU WREN Department: HN6 Room: H626 Gender: Female Rn Cardiac: [id number] : 1950 Requested By: LAURO DAUGHERTY Order Number: [id number] Reading MD: Aime Steiner Measurements Intervals Ceres Rate: 56 P: 31 DC: 176 QRS: 7 QRSD: 100 T: 71 QT: 460 QTc: 444 Interpretive Statements SINUS RHYTHM T wave inversion anteriorly, consider ischemia Electronically Signed On 11-27-2018 11:13:43 CDT by Aime Steiner Performing Organization Address City/State/Zipcode Ph one Number [facility] * Echo Transesophageal with Cardioversion with Doppler and Color Flow (11/24/2018 9:45 AM CDT) Specimen Impressions Performed At 1. Normal LV and RV size and sys tolic function. LVEF estimated at 65%, [facility] 2. No significant valvular abnor malities. 3. Spontaneous echocontrast in t he LA appendage but no visible thrombus. Krystle Sanches M.D. 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 Informed consent was obtained. The procedure was performed in the P ACU. The patient was sedated and monitored by Anesthesia staff in additi on to Hurricaine spray t o the posterior pharynx. The CHRISTI probe was passed without difficulty. The pa tient tolerated the proc edure and the probe was withdrawn. BP: 64 / 47 HR: 110 Ht: 65 Wt: 203 BSA 2.05 m2 : Measurements 2D ECHO MEASUREMENTS Ascending Aorta Diameter 3.4 cm 2.1-3.4 TRICUSPID VALVE DOPPLER RV Systolic Pressure 29.4 mmHg VIRGILIO Thrombus: None Interatrial septum: Normal VIRGILIO Emptying Velocity: 20 Descending Aortic plaque:Mild LA spontaneous echo Mo derate Aortic arch plaque: Mild contrast: R to L shunt at atrial septum: Rhythm: A-fib WALL SEGMENT ANALYSIS: ROUTINE LVSI : 1 %FM : 100 LAD : 1 LCX : 1 RCA : 1 FINDINGS Normal left ventricular systolic f unction, with an estimated ejection fraction of 55%. Wall thickness appears normal. Normal dimensions of the ascending aorta. Normal wall motion. Normal left ventricular dimensions . Normal right ventricular size and systolic function. Severe right and left atrial dilat ation. Sclerotic aortic valve with trivia l regurgitation. Normal mitral valve with mild regu rgitation. Normal pulmonic valve with trivial regurgitation. Normal tricuspid valve with modera te regurgitation. Estimated PA pressure = 29 mmHg. No pericardial effusion. No thrombus seen in the left atria l appendage. There is moderate spontaneous echo contrast with low velocities in the VIRGILIO. Interatrial septum is intact. Previous bubble study performed negative for patent foramen ovale, or right to left shunt. Mild atherosclerotic plaque in the descending aorta. No evidence of intracardiac masses or thrombi. Procedure Note Interface, External Ris In - 11/24/2018 1:25 PM CDT Transesophageal Echocardiogram Report Name: PAU WREN Date: 11/24/2018 09:21 Chart #: [id number] : 1950 Gender F Location: [facility] Sono: mcamadihar : Age: 68 Room #: H626 Referring: YUAN BURKETT Fellow: Indication:Atrial fibrillation I480 Procedure: The patient was kept NPO after midnight. Informed consent was obtained. The procedure was performed in the PACU. The patient was sedated and monitored by Anesthesia staff in addition to Hurricaine spray to the posterior pharynx. The CHRISTI probe was passed without difficulty. The patient tolerated the procedure and the probe was withdrawn. BP: 64 / 47 HR: 110 Ht: 65 Wt: 203 BSA 2.05 m2 : Measurements 2D ECHO MEASUREMENTS Ascending Aorta Diameter 3.4 cm 2.1-3.4 TRICUSPID VALVE DOPPLER RV Systolic Pressure 29.4 mmHg VIRGILIO Thrombus: None Interatrial septum: Normal VIRGILIO Emptying Velocity: 20 Descending Aortic plaque:Mild LA spontaneous echo Moderate Aortic arch plaque: Mild contrast: R to L shunt at atrial septum: Rhythm: A-fib WALL SEGMENT ANALYSIS: ROUTINE LVSI : 1 %FM : 100 LAD : 1 LCX : 1 RCA : 1 FINDINGS Normal left ventricular systolic function, with an estimated ejection fraction of 55%. Wall thickness appears normal. Normal dimensions of the ascending aorta. Normal wall motion. Normal left ventricular dimensions. Normal right ventricular size and systolic function. Severe right and left atrial dilatation. Sclerotic aortic valve with trivial regurgitation. Normal mitral valve with mild regurgitation. Normal pulmonic valve with trivial regurgitation. Normal tricuspid valve with moderate regurgitation. Estimated PA pressure = 29 mmHg. No pericardial effusion. No thrombus seen in the left atrial appendage. There is moderate spontaneous echocontrast with low velocities in the VIRGILIO. Interatrial septum is intact. Previous bubble study performed 11-20-2018 negative for patent foramen ovale, or right to left shunt. Mild atherosclerotic plaque in the descending aorta. No evidence of intracardiac masses or thrombi. IMPRESSION 1. Normal LV and RV size and systolic function. LVEF estimated at 65%, 2. No significant valvular abnormalities. 3. Spontaneous echocontrast in the LA appendage but no visible thrombus. Krystle Sanches M.D. (Electronically Signed) Final Date: 24 November 2018 13:25 Performing Organization Address City/State/Zipcode Ph one Number [facility] * Electrical Cardioversion (11/24/2018 9:33 AM CDT) Narrative Performed At Krystle Sanches MD 11/24/2018 9 :34 AM Electrical Cardioversion Date/Time: 11/24/2018 9:33 AM Performed by: Owen Dickens MD Authorized by: Krystle Sanches MD Consent: Verbal consent obtained. Estebanitt en consent obtained. Risks and benefits: risks, benefits and alternatives were discussed Consent given by: patient Patient understanding: patient states u nderstanding of the procedure being performed Patient consent: the patient's understa nding of the procedure matches consent given Procedure consent: procedure consent ma tcavi procedure scheduled Relevant documents: relevant documents present and verified Test results: test results available an d properly labeled Site marked: the operative site was not marked Imaging studies: imaging studies availa ble Required items: required blood products , implants, devices, and special equipment available Patient identity confirmed: verbally wi th patient and arm band Time out: Immediately prior to procedur e a "time out" was called to verify the correct patient, procedure, equipme nt, customer support associate and site/side marked as required. Sedation: Patient sedated: yes Pre-procedure rhythm: atrial fibrillati on Patient position: patient was placed in a supine position Chest area: chest area exposed Electrodes: pads Electrodes placed: anterior-posterior Number of attempts: 1 Attempt 1 mode: synchronous Attempt 1 waveform: biphasic Attempt 1 shock (in Joules): 200 Attempt 1 outcome: conversion to normal sinus rhythm Post-procedure rhythm: normal sinus rhy thm Complications: no complications Patient tolerance: Patient tolerated th e procedure well with no immediate complications * Heparin Anti Factor Xa, Unfractionated Heparin (11/24/2018 7:25 AM CDT) Only the most recent of 2 results within the time period is included. Pathologist [facility] Unfractionated 0.62Comment: Therapeutic range 0.30 - 0.70 IU/ mL [facility] Heparin Anti may vary based on physician Hospital Lab Factor Xa Assay orders or order set. Specimen Blood Performing Organization Address [facility] [place] [address] LABORATORIES [facility] [address] [place] [id number] * Platelet (11/24/2018 7:16 AM CDT) Only the most recent of 2 results within the time period is included. [facility] Platelet Count 75 (L) 140 - 400 TH/uL [facility] Specimen Blood Performing Organization Address [facility] Ph one Number [address] [address] LABORATORIES [facility] [address] [place] [address] * Magnesium (11/24/2018 7:16 AM CDT) Only the most recent of 5 results within the time period is included. [facility] Magnesium 2.1 1.4 - 2.7 mg/dL [facility] Specimen Blood Performing Organization Address City/[facility] Ph one Number [facility] [address] [place] [address] LABORATORIES [facility] [address] [place] [address] * Prothrombin Time/INR (11/24/2018 7:16 AM CDT) Only the most recent of 5 results within the time period is included. Protime 20.2 (H) 11.4 - 15.0 sec [facility] INR 1.8 (H) 0.8 - 1.2 [facility] Specimen Blood Performing Organization Address [facility] one Number [facility] [address] [place] [address] LABORATORIES [facility] [address] [place] [address] * Basic Metabolic Panel (11/24/2018 7:16 AM CDT) Only the most recent of 4 results within the time period is included. Sodium 138 133 - 147 MEQ/L [facility] Potassium 3.9 3.5 - 5.3 MEQ/L [facility] Chloride 100 96 - 112 MEQ/L [facility] Carbon Dioxide 25 20 - 32 MEQ/L [facility] Anion Gap 13 5 - 17 [facility] Calcium 9.4 8.4 - 10.5 mg/dL [facility] Glucose 117 (H) 70 - 100 mg/dL [facility] Blood Urea 24 7 - 26 mg/dL [facility] Creatinine 1.2 (H) 0.4 - 1.1 mg/dL [facility] eGFR Female AA 53 (L) 60 - 200 [facility] mL/min/1.73sq [facility] eGFR Female 44 (L) 60 - 200 [facility] Non-AA mL/min/1.73sq [facility] Specimen Blood Performing Organization Address City/[facility] Ph one Number [address] [place] [address] LABORATORIES [facility] [address] [place] [address] * Triiodothyronine (11/21/2018 6:40 AM CDT) Triiodothyronin 0.9 (L) 1.0 - 1.7 ng/mL [facility] Specimen Blood Performing Organization Address [facility] Ph one Number [facility] [address] [place] [address] LABORATORIES [facility] [address] [place] [address] * T4 Free (11/21/2018 6:40 AM CDT) T4 Free 0.9 0.8 - 2.2 ng/dL [facility] Specimen Blood Performing Organization Address [facility] Ph one Number [facility] [address] [place] [address] LABORATORIES [facility] [address] [place] [address] * Thyroid [place] (11/21/2018 6:40 AM CDT) Thyroid 0.13 (L) 0.47 - 4.68 uIU/mL [facility] Hormone Specimen Blood Performing Organization Address [facility] Ph one Number [address] [address] LABORATORIES [facility] [address] [place] [address] * Echo Transesophageal with Doppler and Color Flow (11/20/2018 9:30 AM CDT) Specimen Impressions Performed At 1. Normal left ventricular systolic function, wi th an estimated ejection [facility] fraction of 55%. 2. Normal right ventricular size a nd systolic function. 3. Very severe right and left atri al dilatation. 4. Moderate tricuspid valve regurg itation. 5. No thrombus seen in the left at rial appendage. There is 1+ spontaneous echo contrast seen. No previous study available for co mparison. Ofelia Bonilla M.D. 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 Informed consent was obtained. The procedure was performed in the P ACU. The patient was sedated and monitored by Anesthesia staff. The TE E probe was passed without difficulty. The patient tolerated the procedure and the probe was withdrawn. BP: 99 / 63 HR: 120 Ht: 65 Wt: 211 BSA 2.10 m2 : Measurements VIRGILIO Thrombus: None Interatrial septum: Normal VIRGILIO Emptying Velocity: 20 Descending Aortic plaque: LA spontaneous echo Aortic arch plaque: contrast: R to L shunt at atrial septum:None Rhythm: A-fib WALL SEGMENT ANALYSIS: ROUTINE LVSI : 1 %FM : 100 LAD : 1 LCX : 1 RCA : 1 FINDINGS Normal left ventricular systolic f unction, with an estimated ejection fraction of 55%. Wall thickness appears normal. Normal left ventricular dimensions . Normal right ventricular size and systolic function. Very severe right and left atrial dilatation. Sclerotic aortic valve without reg urgitation. Normal mitral valve with mild regu rgitation. Normal pulmonic valve without regu rgitation. Normal tricuspid valve with modera te regurgitation. Unable to accurately estimate pulmonary artery pressure. No pericardial effusion. No thrombus seen in the left atria l appendage. There is 1+ spontaneous echo contrast seen. With low velocities in the left atrial appendage. Interatrial septum is intact. No evidence for right to left shun ting, following an injection of agitated saline. No evidence of intracardiac masses or thrombi. 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 Informed consent was obtained. The procedure was performed in the PACU. The patient was sedated and monitored by Anesthesia staff. The CHRISTI probe was passed without difficulty. The patient tolerated the procedure and the probe was withdrawn. BP: 99 / 63 HR: 120 Ht: 65 Wt: 211 BSA 2.10 m2 : Measurements VIRGILIO Thrombus: None Interatrial septum: Normal VIRGILIO Emptying Velocity: 20 Descending Aortic plaque: LA spontaneous echo Aortic arch plaque: contrast: R to L shunt at atrial septum:None Rhythm: A-fib WALL SEGMENT ANALYSIS: ROUTINE LVSI : 1 %FM : 100 LAD : 1 LCX : 1 RCA : 1 FINDINGS Normal left ventricular systolic function, with an estimated ejection fraction of 55%. Wall thickness appears normal. Normal left ventricular dimensions. Normal right ventricular size and systolic function. Very severe right and left atrial dilatation. Sclerotic aortic valve without regurgitation. Normal mitral valve with mild regurgitation. Normal pulmonic valve without regurgitation. Normal tricuspid valve with moderate regurgitation. Unable to accurately estimate pulmonary artery pressure. No pericardial effusion. No thrombus seen in the left atrial appendage. There is 1+ spontaneous echo contrast seen. With low velocities in the left atrial appendage. Interatrial septum is intact. No evidence for right to left shunting, following an injection of agitated saline. No evidence of intracardiac masses or thrombi. IMPRESSION 1. Normal left ventricular systolic function, with an estimated ejection fraction of 55%. 2. Normal right ventricular size and systolic function. 3. Very severe right and left atrial dilatation. 4. Moderate tricuspid valve regurgitation. 5. No thrombus seen in the left atrial appendage. There is 1+ spontaneous echo contrast seen. No previous study available for comparison. Ofelia Bonilla M.D. (Electronically Signed) Final Date: 20 November 2018 12:52 Performing Organization Address City/State/Zipcode Ph one Number [facility] * HGB/K POC (11/20/2018 8:32 AM CDT) Hemoglobin 12.4 12.0 - 15.0 g/dL [facility] Potassium 4.2 3.5 - 5.3 MEQ/L [facility] LABORATORIES Specimen Performing Organization Address City/[facility] Ph one Number [facility] [address] [place] [address] LABORATORIES * Potassium (11/20/2018 8:27 AM CDT) Potassium 4.4 3.5 - 5.3 MEQ/L [facility] Specimen Blood Performing Organization Address City/[facility] Ph one Number [facility] [address] [place] [address] LABORATORIES [facility] [address] [place] [address] * Creatinine (11/20/2018 8:27 AM CDT) Creatinine 1.2 (H) 0.4 - 1.1 mg/dL [facility] eGFR Female AA 53 (L) 60 - 200 [facility] mL/min/1.73sq [facility] eGFR Female 44 (L) 60 - 200 [facility] Non-AA mL/min/1.73sq [facility] Specimen Blood Performing Organization Address City/[facility] Ph one Number [facility] [address] [place] [address] LABORATORIES [facility] [address] [place] [address] documented in this encounter Visit Diagnoses Diagnosis Atrial fibrillation, unspecified type ( HCC) [facility] current use of anticoagulant therapy Persistent atrial fibrillation (HCC) Atrial fibrillation Paroxysmal atrial fibrillation (HCC) Atrial fibrillation Essential hypertension Unspecified essential hypertension Mitral regurgitation Mitral valve disorders Dilated cardiomyopathy (HCC) Other primary cardiomyopathies Chronic combined systolic and diastolic CHF, NYHA class 3 (HCC) JJ (obstructive sleep apnea) Obstructive sleep apnea (adult) (pediat vadim) documented in this encounter Administered Medications Action Date Dose Rate Site Medication Order MAR Action acetaminophen (TYLENOL) suppository 325-650 mg 325-650 mg, Rectal, Every 6 hours PRN, mild pain (pain score 1-3), Starting Th u 11/20/18 at 1046, Administer if patient unable to tolerate oral medications., acetaminophen (TYLENOL) tablet 325-650 mg 325-650 mg, Oral, Every 6 hours PRN, mild pain (pain score 1-3), fever, Starting [facility] 11/20/18 at 1046, Do not exceed 4 GM/DAY of acetaminophen. If 6 5 or older do not exceed 3 GM/DAY. If chronic alcoholic do not exceed 2 GM/DAY., aluminum-magnesium hydroxide-simethicon e (MAALOX PLUS) 400-400-40 mg/5 mL suspension 15 mL 15 mL, Oral, Every 4 hours PRN, indigestion, Starting [facility] 11/20/18 at 1046, Avoid if estimated glomerular filtration rate (eGFR) is less than 20 mL/minute/1.73m2., 11/23/2018 10:02 AM CDT 5 mg amLODIPine (NORVASC) tablet 5 mg Given 5 mg, Oral, Daily, First dose on Gabby 11/20/18 at 1015 5 mg Given 11/22/2018 8:21 AM CDT 5 mg Given 11/21/2018 8:40 AM CDT 11/21/2018 8:40 AM CDT 12.5 mg carvedilol (COREG) tablet 12.5 mg Given 12.5 mg, Oral, 2 times daily, First dos e on Gabby 11/20/18 at 1015 12.5 mg Given 11/20/2018 8:55 PM CDT 11/21/2018 3:11 PM CDT 12.5 mg carvedilol (COREG) tablet 12.5 mg Given 12.5 mg, Oral, Once, Sat11/21/18 at 1530, For 1 dose 11/24/2018 11:03 AM CDT 25 mg carvedilol (COREG) tablet 25 mg Given 25 mg, Oral, 2 times daily, First dose (after last modification) on Sat 9 at 2100 25 mg Given 11/23/2018 9:14 PM CDT 25 mg Given 11/23/2018 10:03 AM CDT 11/20/2018 12:45 PM CDT 100 mg docusate sodium (COLACE) capsule 100 mg Given 100 mg, Oral, 2 times daily PRN, stool softening, Starting [facility] 11/20/18 at 1046 , DO NOT CRUSH OR CHEW., 11/24/2018 11:03 AM CDT 125 mcg dofetilide (TIKOSYN) capsule 125 mcg Given 125 mcg, Oral, Every 12 hours scheduled , Indications: cardioversion of atrial fibrillation, paroxysmal supraventricular tachycardia, First dos e (after last modification) on Sat 9 at 0915, For CrCl 20 - 39 mL/min. Do not initiate dofetilide unless potassiu m and magnesium are within the normal lab reference range. Continue to follow the electrolyte replacement protocol for this order set to target a potassium of 4 mEq/L or greater and a magnesium of 1.7 mg/dL or greater. Do not initiate dofetilide if baseline QTc > 440 msec (500 msec in a patient with bundle branch block or paced rhythm). Two hours after each dose: Obtain 12 lead ECG, scan ECG into Epic and contact prescriber managing dofetilide. Documen t reviewing prescriber's name and QTc values in the Dofetilide Monitoring flowsheet based on prescriber assessment. For the first dose only, notify prescriber managing dofetilide i f QTc increases by greater than 15% or exceeds 500 msec (550 msec in patients with a bundle branch block). The dose i s typically reduced by 50% in this scenario. If QTc increases to > than 500 msec (> 550 msec in patients with a bundle branch block or paced rhythm), HOLD dofetilide. DO NOT CRUSH OR CHEW., Service responsible for managing dofetilide (Tikosyn): Cardiology, Baseline QTc (msec): 360 125 mcg Given 11/23/2018 9:14 PM CDT 125 mcg Given 11/23/2018 10:00 AM CDT 11/20/2018 1:52 PM CDT 250 mcg dofetilide (TIKOSYN) capsule 250 mcg Given 250 mcg, Oral, Every 12 hours scheduled , Indications: cardioversion of atrial fibrillation, paroxysmal supraventricular tachycardia, First dos e (after last modification) on Gabby 9 at 1330, For CrCl 20 - 39 mL/min. Do not initiate dofetilide unless potassiu m and magnesium are within the normal lab reference range. Continue to follow the electrolyte replacement protocol for this order set to target a potassium of 4 mEq/L or greater and a magnesium of 1.7 mg/dL or greater. Do not initiate dofetilide if baseline QTc > 440 msec (500 msec in a patient with bundle branch block or paced rhythm). Two hours after each dose: Obtain 12 lead ECG, scan ECG into Epic and contact prescriber managing dofetilide. Peewee garcia reviewing prescriber's name and QTc values in the Dofetilide Monitoring flowsheet based on prescriber assessment. For the first dose only, notify prescriber managing dofetilide i f QTc increases by greater than 15% or exceeds 500 msec (550 msec in patients with a bundle branch block). The dose i s typically reduced by 50% in this scenario. If QTc increases to > than 500 msec (> 550 msec in patients with a bundle branch block or paced rhythm), HOLD dofetilide. DO NOT CRUSH OR CHEW., Service responsible for managing dofetilide (Tikosyn): Cardiology, Baseline QTc (msec): 360 11/24/2018 11:06 AM CDT 40 mg furosemide (LASIX) tablet 40 mg Given 40 mg, Oral, Daily, First dose on Gabby 11/20/18 at 1015 40 mg Given 11/23/2018 10:00 AM CDT 40 mg Given 11/22/2018 8:22 AM CDT heparin (porcine) 1,000 unit/mL injection 1,000-10,000 Units 1,000-10,000 Units, Intravenous, As needed, per heparin infusion nomogram, Starting Irvine 11/23/18 at 1419, Note: See heparin infusion order for instructions on boluses. Full bolus (80 units/kg): 7,400 units Half bolus (40 units/kg): 3,700 units, 11/23/2018 4:41 PM CDT 7,400 Units heparin (porcine) 1,000 unit/mL Given injection 7,400 Units 7,400 Units (rounded from 7,416 Units = 80 Units/kg 92.7 kg), Intravenous, Once, [place] 9 at 1445, For 1 dose, Initial Bolus = 80 units/kg, 11/23/2018 5:03 PM CDT 18 Units/kg/hr 16.6 mL/hr heparin 100 units/mL in dextrose (D5W) New Bag 5% 250 mL infusion 18 Units/kg/hr 92.7 kg (16.686 mL/hr, rounded to 16.6 mL/hr), Intravenous, at 16.6 mL/hr, Continuous, Starting [place]vine 11/23/18 at 1445, For 6 hours, MAXIMUM INITIAL INFUSION RATE = 2000 units/hr , 11/24/2018 9:44 AM CDT 14.995 Units/kg/hr 13.9 mL/hr heparin 100 units/mL in dextrose (D5W) New Bag 5% 250 mL infusion 2-30 Units/kg/hr 92.7 kg (1.854-27.81 mL/hr, rounded to 1.8-27.8 mL/hr), Intravenous, at 1.8-27.8 mL/hr, Continuous, Starting Jones n 11/23/18 at 2303, Anti-Xa level is: Less than 0.06: Give full IV bolus and INCREASE dose by 3 units/kg/hr. Check Anti-Xa level in 6 hours. 0.06 - 0.29: Give half IV bolus and INCREASE dose by 1 unit/kg/hr. Check Anti-Xa level in 6 hours. 0.3 - 0.7 : No Bolus and NO DOSE CHANGE. Check Anti-Xa level in AM (if this is the first Anti-Xa within range, then check in 6 hours). 0.71 - 0.9: No Bolus and DECREASE dose by 1 unit/kg/hr . Check Anti-Xa level in 6 hours. - - Greater than 0.9: No Bolus and HOLD INFUSION for 1 hour then RESTART infusion but DECREASE dose by 3 units/kg/hr (notify physician if Anti-X a greater than 1.1). Check Anti-Xa level in 6 hours. If REPEAT 6 hour Anti-Xa level is: Less than or equal to 0.9: Refer to algorithm above. STILL greater than 0.9: HOLD INFUSION and notify physician., 15 Units/kg/hr 13.9 mL/hr Dose Change (Dual Sign) 11/24/2018 1:54 AM CDT 11/24/2018 11:05 AM CDT 25 mg losartan (COZAAR) tablet 25 mg Given 25 mg, Oral, Daily, First dose on Gabby 11/20/18 at 1015 25 mg Given 11/23/2018 10:01 AM CDT 25 mg Given 11/22/2018 8:22 AM CDT magnesium sulfate IVPB 2 gram (premix) 2 g, Intravenous, Administer over 10 Minutes, As needed, ventricular arrhythmias (torsades de pointes, sustained ventricular tachycardia), Starting Gabby 11/20/18 at 1046, Notify calculus tutor for non-sustained VT > 3 beats on monitor., magnesium sulfate IVPB 2 gram (premix) 2 g, Intravenous, at 25 mL/hr, As needed, magnesium replacement, Starting Gabby 11/20/18 at 1046, If magnesiuim leve l is 1.4 - 1.6 mg/dL, administer 2 grams over 2 hours. Repeat Mg level in AM. Us e only if SCr < 2 and urine output is > 6 0 mL for 2 hours or > 360 mL every 12 hours. All magnesium replacement is in addition to any scheduled doses., 11/21/2018 1:05 PM CDT 21 mL/hr magnesium sulfate IVPB 2 gram (premix) Rate/Dose 2 g, Intravenous, Administer over 2 Verify Hours, Once, Sat11/21/18 at 1315, For 1 dose 2 g 21 mL/hr New Bag 11/21/2018 1:02 PM CDT 11/23/2018 1:11 PM CDT 2 g 25 mL/hr magnesium sulfate IVPB 2 gram (premix) New Bag 2 g, Intravenous, at 25 mL/hr, Once, [facility] 11/23/18 at 1030, For 1 dose magnesium sulfate IVPB 4 gram (premix) 4 g, Intravenous, at 25 mL/hr, As needed, magnesium replacement, Starting Sat11/21/18 at 0818, If magnesiuim leve l is < 1.4 mg/dL, administer 4 grams over 4 hours. Repeat Mg level 4 hours after infusion completed. Use only if SCr < 2 and urine output is > 60 mL for 2 hours or > 360 mL every 12 hours. All magnesium replacement is in addition to any scheduled doses., miconazole nitrate (ALOE VESTA) 2 % ointment Topical, 3 times daily PRN, perineal or skin fold redness, Starting Gabby 11/20/18 at 1046, Consult wound care if no improvement within 3 days., nitroglycerin (NITROSTAT) SL tablet 0.4 mg 0.4 mg, Sublingual, Every 5 min PRN, chest pain, Starting Gabby 11/20/18 at 1046, For 3 doses, May repeat every 5 minutes for a total of 3 doses. Check B P prior to each dose. Discontinue use for SBP less than 90 mmHg. Notify physicia n if given. DO NOT CRUSH OR CHEW., 11/24/2018 6:16 AM CDT 40 mg pantoprazole (PROTONIX) EC tablet 40 mg Given 40 mg, Oral, Daily, First dose on Gabby 11/20/18 at 1015, Instruction for ng/peg/tube administration of nexium: Empty intact granules from capsule into a medicine cup and add 20ml water. Pour into 60ml syringe and fill to 50ml, replace plunger. Shake vigorously for 1 5 seconds, granules will not dissolve. Attach to ng tube, hold syringe vertically, and administer over 20 seconds. Rotate syringe in circular manner at least once during administration to assure all granules are suspended in water, DO NOT CRUSH O R CHEW., 40 mg Given 11/23/2018 6:32 AM CDT 40 mg Given 11/22/2018 8:22 AM CDT 11/21/2018 8:42 AM CDT 10 mg PARoxetine (PAXIL) tablet 10 mg Given 10 mg, Oral, Daily, First dose on Gabby 11/20/18 at 1015 10 mg Given 11/20/2018 12:45 PM CDT 11/24/2018 11:05 AM CDT 10 mg PARoxetine (PAXIL) tablet 10 mg Given 10 mg, Oral, Daily, First dose (after last reorder) on [facility] 11/22/18 at 0900 10 mg Given 11/23/2018 10:06 AM CDT 10 mg Given 11/22/2018 8:21 AM CDT polyethylene glycol (GLYCOLAX) packet 1 7 g 17 g, Oral, Daily PRN, constipation, Starting [facility] 11/20/18 at 1046, Hold thes e medications if patient has had loose stool or diarrhea within previous 24 hours., potassium bicarb-citric acid (EFFER-K) effervescent tablet 20 mEq 20 mEq, Oral, As needed, aggressive electrolyte replacement, Starting [facility] 11/20/18 at 1046, Administer if unable t o swallow potassium tablets. Replace in addition to any scheduled potassium doses. Administer 20 mEq once for potassium level 3.6 to 3.9 mg/dL. Repea t potassium level in AM. Administer 20 mE q every hour x 2 doses (total dose = 40 mEq) for potassium level 3.1 to 3.5 mg/dL. Repeat potassium level in AM. Administer 20 mEq every hour x 3 doses (total dose = 60 mEq) for potassium level less than or equal to 3.0. Repeat potassium level 4 hours after last oral dose administered. Administer only if serum creatinine is less than 2 within the previous 48 hours and sustained urine output is greater than 20 mL/hr for 6 hours (if able to monitor). Completely dissolve tablet in 3 to 4 ounces (90-120 mL) of cold juice or water before administering. For fluid restricted patients, a smaller volume may be used to dilute (e.g. 15-30 mL)., 11/24/2018 11:05 AM CDT 10 mEq potassium chloride (KLOR-CON) CR tablet Given 10 mEq 10 mEq, Oral, Daily, First dose on [facility] 11/20/18 at 1015, DO NOT CRUSH OR CHEW., 10 mEq Given 11/23/2018 10:01 AM CDT 10 mEq Given 11/22/2018 8:22 AM CDT 11/22/2018 9:40 AM CDT 20 mEq potassium chloride (KLOR-CON) CR tablet Given 20 mEq 20 mEq, Oral, As needed, aggressive electrolyte replacement, Starting [facility] 11/20/18 at 1046, Replace in addition to any scheduled potassium doses. Administer 20 mEq once for potassium level 3.6 to 3.9 mg/dL. Repeat potassiu m level in AM. Administer 20 mEq every hour x 2 doses (total dose = 40 mEq) fo r potassium level 3.1 to 3.5 mg/dL. Repea t potassium level in AM. Administer 20 mE q every hour x 3 doses (total dose = 60 mEq) for potassium level less than or equal to 3.0. Repeat potassium level 4 hours after last [...] Intravenous, Administer over 2 Hours, As needed, aggressive electrolyt e replacement, Starting Gabby 11/20/18 at 1046, Administer if unable to take oral potassium. Replace in addition to any scheduled potassium doses. Administer 20 mEq once for potassium level 3.6 to 3.9 mg/dL. Repeat potassium level in AM . Administer 20 mEq x 2 doses (total dose = 40 mEq) for potassium level 3.1 to 3. 5 mg/dL. Repeat potassium level 2 hours after last infusion complete. Administer 20 mEq x 3 doses (total dose = 60 mEq) for potassium level less than or equal to 3.0. Repeat potassium level 2 hours after last [...] of 20 mEq/hr through a central line., 11/24/2018 9:30 AM CDT propofol (DIPRIVAN) 10 mg/mL injection Given by Starting Sat11/24/18 at 0919, For 1 Other dose, Ann Dunaway A: cabinet override IV push administration is restricted to deep sedation credentiale d providers, except in rapid sequence intubation in life threatening situations (refer to Deep Sedation Policy)., sodium chloride 0.9% infusion 30 mL/hr, Intravenous, Continuous, Starting Sat11/23/18 at 1445, For 48 hours, Start one hour prior to schedule d procedure time., 11/20/2018 9:13 PM CDT 1.25 mg warfarin (COUMADIN) split tablet 1.25 mg Given 1.25 mg, Oral, User specified (Once per day on Sat Sat), First dose on Sat11/20/18 at 1800 11/21/2018 6:12 PM CDT 2.5 mg warfarin (COUMADIN) tablet 2.5 mg Given 2.5 mg, Oral, User specified (Once per day on Sat), First dose on Sat11/21/18 at 1800 11/22/2018 5:55 PM CDT 2.5 mg warfarin (COUMADIN) tablet 2.5 mg Given 2.5 mg, Oral, Every evening, First dose on 11/22/18 at 1800 warfarin (COUMADIN) tablet 2.5 mg 2.5 mg, Oral, Every evening, First dose (after last modification) on Sat 9 at 1800 11/23/2018 6:33 PM CDT 5 mg warfarin (COUMADIN) tablet 5 mg Given 5 mg, Oral, Once, 11/23/18 at 1800, For 1 dose warfarin (COUMADIN) tablet 5 mg 5 mg, Oral, Once, 11/24/18 at 1800, For 1 dose zolpidem (AMBIEN) tablet 5 mg 5 mg, Oral, Nightly PRN, sleep, Startin g Gabby 11/20/18 at 1046, May repeat 5 mg in MALE patients less than 65 years old if not effective in 60 minutes. Do NOT exceed 5 mg daily in FEMALES or patient s older than 65 years old. Do NOT give t o patients with confusion or dementia, documented in this encounter
--- OUTSIDE RECORDS SUMMARY | 2019-08-31 20:42 | XMS REPORT | Encounter Summary ---
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 Table 8. Spoke with pt in regards to [facility] enrollment. Pt has been on Warfarin for at least 10 years, pt is testing with a home monitor. Confirmed dose and RX with pt. Routed message to BRIELLE Holguin to link [facility] account with [facility]. Discussed the following education and pt v/u and had no further questions. Letitia garcia LPN You have been started on a new medication called Coumadin or the generic Warfari n. There are several branded generics that may also be used. You are now enrolle d in our Anticoagulation Clinic. Anticoagulation Clinic phone number is [phone] Our clinic follows the same schedule as [facility] Sat-Saturday 8am-5pm If you choose to have your labs drawn at an outside facility (somewhere other an [facility]) please keep in mind it may take up to 48 hours for you to receive your results and recommendations. If you do not hear from our clinic regarding y our results and recommendations please continue taking your Coumadin/Warfarin as instructed until told otherwise. Here are some helpful hints to remember when taking Coumadin/Warfarin: -The INR (International Normalized Ratio) is the parameter we follow to balance the risk of clotting and bleeding. Normal is 1 and we have recommended a specifi c point estimate goal for your INR based on your risk of bleeding and clotting c omplications. - If another prescriber has started you on a new medication or you are starting on an OTC (over the counter) medication/vitamin supplement please contact our cl inic as certain medications can interact with Coumadin/Warfarin resulting in a change in your INR that may require more frequent monitoring. -Remember the 3 A's - Alcohol - it is not recommended to use alcohol when taking this medication. If you choose to have alcohol please keep in mind your INR will be affecte d. The INR may become elevated resulting in an increase in bleedi ng risk. - Aspirin/NSAIDs (Nonsteroidal Anti-inflammatory Drug) - These medications can i ncrease the risk of bleeding without changing the INR. If you are already on As pirin or your doctor has started this medication, please take this medication, j ust make sure to review with your doctor all your medications. Do take any addit ional Aspirin or NSAIDs. NSAIDs are clearly marked on the label of the medication bottle. -Antibiotics - This group of medications can change how you metabolize Vitamin K and can cause your INR to become elevate d (or rarely decreases). When taking an antibiotic our clinic will need to monit or your INR more closely. When taking an antibiotic our clinic will need to selvin tor your INR more closely. - Bleeding Precautions - Warfarin/Coumadin cause the blood to be thin. Here are some tips to minimize potential bleeding - use a soft toothbrush - Use an electric razor - Wear shoes at all times - use normal saline nasal spray especially during the winter months - Avoid tight fitting clothes - Use caution when cutting with a sharp knife - Use gloves when gardening - If you do start to bleed hold pressure over the site bleeding for at lease 5 minutes. If bleeding does not stop, you may need to go to the Emergency Room - Your diet- It is important to not change your diet when starting this medicat ion. You will read and hear it is important to lessen the amount of vitamin K in your diet. Studies now say it is more important to maintain a steady diet. Vitamin K is th e reversal agent for Coumadin/Warfarin, so change in diet high in Vitamin K or by eating Vitamin K rich foods will cause a decrease in your INR resulting in a dos e change. - It is important to be honest with the nurse regarding your compliance with mary ann ing the medications (or any missed doses) when he/she is talking with you regard ing your INR. We want to be able to dose your medication as safely as possible - If you are needing a procedure and your Coumadin/Warfarin needs to be held you r Thoracic Medicine Specialist needs to be aware of this. Please call your Thoracic Medicine Specialist nurse team . Once the doctor has provided his/her recommendations then the Anticoagulati on Clinic will be notified and we can add this to your anticoagulation calendar. Please read the specific handouts provided to you. 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
--- OUTSIDE RECORDS SUMMARY | 2019-08-31 20:42 | XMS REPORT | Encounter Summary ---
Author Author [facility] Organization [facility] Address Unknown Phone Unavailable Care Team Providers Care Television Analyzer Name Role Phone PCP Unavailable Reason for Visit * Reason Comments Procedure Instructions Encounter Details Care Team Description Date Type Department Tamica Forrest RN Procedure Instructions 11/19/2018 Telephone [facility] [address] [place] [address] Social History Date Tobacco Use Types Packs/Day [...] Telephone Encounter - Tamica Forrest RN - 11/19/2018 1:35 PM CDT You have been scheduled for Transesophageal Echocardiogram with Dr. Torres at [facility] on . Please arrive at 0800 that day, in jorge l entrance [address] to park. When you come in the door off entrance #2, the admitting desk will be directly to your left. 1. You will be admitted for Tikosyn loading after your AIDEN. 2. Bring a current list of medications and allergies with you. 3. Nothing to eat or drink after midnight the night before procedure, except for small sips of water with your morning medications. 4. Specific Medication Instructions: -Please hold your potassium, furosemide and all vitamins and supplements the mo rning of your procedure If you have any further questions regarding these instructions, please call the EP office at [phone] during regular office hours Saturday through Saturday, 8-4 p Pt instructed via VM. Request a return call verifying receipt. Tamica Forrest, 11/09 1:46 PM documented in this encounter Plan of Treatment Not on filedocumented as of this encounter Visit Diagnoses Not on filedocumented in this encounter
--- OUTSIDE RECORDS SUMMARY | 2019-08-31 20:42 | XMS REPORT | Encounter Summary ---
Author Author [facility] Organization [facility] Address Unknown Phone Unavailable Care Team Providers Care Mill Operator Name Role Phone Yulissa Zapata PCP Encounter Details Care Team Description Date Type Department Kristi Chapin LPN terminologist current use of antiarrhythmic drug; Persistent atrial fibrillation 12/08/2018 Anticoag visit [facility] [address] [place] [address] Social History Date Tobacco Use Types Packs/Day [...] Progress Notes * Ibis Goss LPN - 12/08/2018 11:13 AM CDT [place] from [facility] call in Critical INR with vena puncture for Client ; INR 6. 0 Cont with dosing instruction per protocol By Fatuma Chapin LPN see Note on 11/11 naresh ESTEVEZ * Kristi Chapin LPN - 12/08/2018 11:13 AM CDT [facility] Anticoagulation protocol 2.0-3.0 Table 7. Consider holding 1-2 doses. INR 7 .2 Recommendation:Hold dose tonight and tomorrow. Recheck 12-10-2018. See Note. Fatuma Hill LPN Note:Patient denies any changes in diet, however she states she is taking an ant ibiotic. Patient is going to [place] to get another reading today. Constance ISLAS Called in a standing order for patient. Constance ESTEVEZ documented in this encounter Plan of Treatment Order Schedule Name Type Priority Associated Diag noses 26 Occurrences starting 12/08/2018 until 06/08/2019 Prothrombin Time/INR Lab Routine [facility] current use of antiarrhythmic drug Persistent atrial fibrillation documented as of this encounter Procedures Comments Procedure Name Priority Date/Time Associated Diag nosis PROTIME-INR Routine 12/08/2018 PROTIME-INR Routine 12/08/2018 documented in this encounter Results * Protime-INR (12/08/2018) INR 6.0 (A)Comment: INR 6.0 Hold 2 - 3 tonight and tomorrow recheck on 12/10/2018 Specimen Blood * Protime-INR (12/08/2018) INR 7.2 (A)Comment: INR 7.2 2 - 3 Recommendation:Hold dose tonight and tomorrow. Recheck 12-10-2018. See Note. 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
--- OUTSIDE RECORDS SUMMARY | 2019-08-31 20:42 | XMS REPORT | Encounter Summary ---
Author Author [facility] Organization [facility] Address Unknown Phone Unavailable Care Team Providers Care Concrete Block Maker Name Role Phone Yulissa Zapata PCP Reason for Referral * EGD (Routine) Referred By Contact Referred To Contact Status Reason Specialty Diagnoses / Procedures Yulissa Zapata MD [address] [place] [address] Dr Caballero [address] [place] [id number] [facility] [address] [place] [id number] Closed Specialty Services Gastroenterology Diagnoses Required Dysphagia, unspecified type Encounter Details Care Team Description Date Type Department Yulissa Zapata MD [address] [place] [address] [place] [address] Dysphagia, unspecified type (Primary Dx) 12/02/2018 Transcribe [facility] [address] [place] [address] Social History Date Tobacco Use [...] as of this encounter Plan of Treatment Order Schedule Name Type Priority Associated Diag noses 1 Occurrences starting 12/02/2018 until 06/02/2019 Amb Referral To Outpatient Routine Dysphagia, uns pecified Gastroenterology Referral type documented as of this encounter Visit Diagnoses Diagnosis Dysphagia, unspecified type documented in this encounter
--- OUTSIDE RECORDS SUMMARY | 2019-08-31 20:42 | XMS REPORT | Encounter Summary ---
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 Warfarin Outpatient [facility]; Indications Persistent Afib INR 6.0 previous INR 6.4 per table 7 Recommendations: Hold tonight and tomorrow recheck with Ho [facility] Monitor on 12/10/2018 Client denies any bleeding or bruising ; Client does dr ink Red Wine 20 oz glass every evening ; Educated client the effects of alcohol with Warfarin ; Increase greens 1 cup x2 days Client v/u with dosing instruction s and recommendations naresh ESTEVEZ documented in this encounter Plan of Treatment Not on filedocumented as of this encounter Procedures Comments Procedure Name Priority Date/Time Associated Diag nosis LAB SUMMARY 12/09/2018 2:26 PM CDT documented in this encounter Results * LAB SUMMARY (12/09/2018 2:26 PM CDT) Narrative Performed At This result has an attachment that is n ot available. Ordered by an unspecified provider. documented in this encounter Visit Diagnoses Diagnosis shelter current use of antiarrhythmic drug Persistent atrial fibrillation Atrial fibrillation documented in this encounter
--- OUTSIDE RECORDS SUMMARY | 2019-08-31 20:42 | XMS REPORT | Encounter Summary ---
Author Author [facility] Organization [facility] Address Unknown Phone Unavailable Care Team Providers Care Circulation Sales Representative Name Role Phone Yulissa Zapata PCP Encounter Details Care Team Description Date Type Department Sonya Bailey RN 12/04/2018 Abstract [facility] [address] [place] [address] Social History Date Tobacco Use [...]
--- OUTSIDE RECORDS SUMMARY | 2019-08-31 20:42 | XMS REPORT | Encounter Summary ---
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 Table 7. Spoke with pt and she stated she held her Warfarin last night because s he cu herself and had a difficult time getting the bleeding to stop, so she susp ected her INR was high. She denies any changes in diet or medications. No other abnormal bleeding or bruising present. Bleeding precautions given if bleeding oc curs to seek medical attention. She states she is having an EGD done next Saturday12/12/18 and if going to discuss with Aislinn Basurto PA-C on 12/09/18 at appt in [place] to holding Warfarin. She states she has 2.5 mg tabs and will just cut those in hlf and take 1.75 mg daily, updated anticoag track. She v/u to all informati on. 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
--- OUTSIDE RECORDS SUMMARY | 2019-08-31 20:42 | XMS REPORT | Encounter Summary ---
Author Author [facility] Organization [facility] Address Unknown Phone Unavailable Care Team Providers Care Director Of Nuclear Medicine Name Role Phone Benny, Yulissa PCP Reason for Referral * Electrophysiology (Routine) Referred By Contact Referred To Contact Status Reason Specialty Diagnoses / Procedures Ze Basurto PA-C [address] [place] [address] [facility] [address] [place] [address] Closed Cardiology Diagnoses Atrial fibrillation, unspecified type (HCC) P rocedures Cardiac Monitoring Patch (14 day) * Diagnostic Imaging (Routine) Referred By Contact Referred To Contact Status Reason Specialty Diagnoses / Procedures Ze Basurto PA-C [address] [place] [address] Closed Diagnoses Paroxysmal atrial fibrillation (HCC) P rocedures Electrocardiogram (ECG) Reason for Visit * Reason Comments Post DCCV Atrial fibrillation Encounter Details Care Team Description Date Type Department Ze Basurto PA-C [address] [place] [address] [phone] Paroxysmal atrial fibrillation (HCC) (Pr imary Dx); Atrial flutter, unspecified type (HCC); 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; [facility] current use of anticoagulant therapy; History of cardiomyopathy; JJ (obstructive sleep apnea); Essential hypertension 12/09/2018 Office Visit [facility] [address] [place] [address] Social History Date Tobacco Use Types Packs/Day [...] Signs Reading Time Taken Comments Vital Sign 95/75 12/09/2018 11:08 AM CDT lowest Blood Pressure 118 12/09/2018 11:08 AM CDT irregular Pulse - - Temperature - - Respiratory Rate - - Oxygen Saturation - - Inhaled Oxygen Concentration 93.3 kg (205 lb 9.6 oz) 12/09/2018 11:04 AM CDT Weight 165.1 cm (5' 5") 12/09/2018 11:04 AM CDT Height 34.21 12/09/2018 11:04 AM CDT Body Mass Index documented in this encounter Patient Instructions * Patient Instructions* Ze Basurto PA-C - 12/09/2018 11:30 AM CDT A zio patch has been placed today Medication Instructions: Continue to hold losartan until further notice Please maintain a daily diary of BP readings. Take @ various times on different days. Check once daily, unless symptomatic. If symptomatic (i.e. Lightheaded, sh ort of breath, or chest discomfort) check BP and document symptom(s) in the diar y. Also document the time of the BP reading and the time of day that the blood p ressure medication has been taken. Please call if your BP is consistently @ or g reater than 130/80. Also please contact the office for any consistent low readin gs with a systolic (top number) @ 100 or below. NURSE LINE Follow up with MD Dr. Dayton Daugherty as soon as possible. For any [facility] scheduling questions, please john l . At [facility], high quality patient care is our top priority. To ensure our cardiovascular standards are continuously met, you may receive a survey via [email or web address] or text message, and we ask that you please take the time to fill it out. We strive to ensure you are very satisfied with every visit. Thank you in advance for taking the time to fill this out. It was a pleasure to meet you. Ze Basurto P.A.-C documented in this encounter Progress Notes * Ze Basurot PA-C - 12/09/2018 11:30 AM CDT [facility] Appointment Date: 12/09/2018 Yulissa Zapata MD [address] [place] [address] [address] [facility] [address] RE: Pau Mccabe : 1950 Visit provider: Ze Basurto PA-C Dear Yulissa Zapata MD, I had the pleasure of seeing Pau Mccabe in the office today. She is a(n) 68 y .o. female and presents with the following chief complaint(s): Post DCCV and Atr ial fibrillation HPI: Ms. 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 The remainde r of her past medical history is outlined below and has been reviewed. Ms. Mccabe presents for outpatient evaluation today after her recent hospitaliza tion at [facility] on the [facility] from 0 11/20/2018-11/24/2018 following initiation of Tikosyn. Of note, she had previous ly been on sotalol; however, it was felt no longer to be effective due to the pa tient experiencing increased episodes of atrial fibrillation that were lasting l onger. She was initiated on Tikosyn at 250 mcg b.i.d.; however, based on creati nine clearance and QT after the first dose it was decreased to 125 mcg b.i.d. S he did proceed with a successful AIDEN-guided cardioversion on 11/24/2018 and mana ined in sinus rhythm for the duration of her hospital course. Currently, she do es note palpitations; however, she denies lightheadedness, chest discomfort or e xertional dyspnea. Interestingly, patient reports that she believes approximate ly 2 days following discharge she once again reverted back to atrial fibrillatio n. She then states a few days later she felt that she had once again converted to sinus rhythm. She states this due to the fact that she had been monitoring h er heart rate and noted when she experienced palpitations that her heart rate wa s primarily in the 110's. When she was without palpitations, she checked her hea rt rate and blood pressure and her heart rate was in the 60s. An EKG performed today does confirm that unfortunately, she has once again reverted to atrial flu tter with ventricular response in the 110s. She does report compliance with her Tikosyn, Coreg and warfarin. She is without further complaints. 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 use of anticoagulant therapy LONG-TERM CURRENT USE OF ANTI COAGULANT Dilated cardiomyopathy (HCC) DILATED CARDIOMYOPATHY Chronic combined systolic and diastolic CHF, NYHA class 3 (HCC) CHRONIC COMB INED SYSTOLIC AND DIASTOLIC HEART FAILURE JJ (obstructive sleep apnea) OBSTRUCTIVE SLEEP APNEA SYNDROME Persistent atrial fibrillation PERSISTENT ATRIAL FIBRILLATION [facility] current use of antiarrhythmic drug LONG-TERM CURRENT USE OF DRUG T HERAPY Hypotension due to drugs DRUG-INDUCED HYPOTENSION History of cardiomyopathy HISTORY OF CARDIOMYOPATHY Atrial flutter (HCC) ATRIAL FLUTTER Past Medical History: Diagnosis Date Atrial fibrillation (HCC) Atrial fibrillation with RVR ([facility]) 09/10/2018 Noted on 24 Hour Holter Depression Dilated cardiomyopathy (HCC) 11/20/2018 Essential hypertension GERD (gastroesophageal reflux disease) 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 Abnormal LV systolic function con sistent with a nonischemic cardiomyopathy. CARDIOVERSION 11/24/2018 Atrial Fib: Successful DCCV to NSR with one shock of 200j. HYSTERECTOMY 03/2003 REPAIR, ROTATOR CUFF Right 04/2009 Final Medications: Current Outpatient Medications Medication Sig [...] mouth daily. warfarin (COUMADIN) 2.5 MG tablet Take 1 tablet (2.5 mg total) by mouth ever y evening. 30 tablet 11 nitrofurantoin (MACRODANTIN) 100 MG capsule Take 100 mg by mouth 2 (two) geoff es a day. For 5 days For UTI No current facility-administered medications for this visit. [...] Never Used Substance Use Topics Alcohol use: Not Currently Drug use: Never Review of Systems Constitution: Negative for fever, malaise/fatigue and night sweats. HENT: Negative for nosebleeds. Cardiovascular: Positive for palpitations. Negative for chest pain, claudication , cyanosis, dyspnea on exertion, leg swelling, near-syncope, orthopnea, paroxysm al nocturnal dyspnea and syncope. Respiratory: Positive for sleep disturbances due to breathing. Negative for coug h, hemoptysis, shortness of breath, snoring and wheezing. Endocrine: Negative for cold intolerance and polydipsia. Hematologic/Lymphatic: Bruises/bleeds easily. Skin: Negative for rash. Musculoskeletal: Negative for joint pain and myalgias. Gastrointestinal: Positive for dysphagia. Negative for hematochezia, nausea and vomiting. Genitourinary: Negative for hematuria. Neurological: Negative for brief paralysis, disturbances in coordination, excess katie daytime sleepiness, dizziness, focal weakness, light-headedness, loss of bal ance and numbness. Psychiatric/Behavioral: Negative for depression. All other systems reviewed and are negative. Vital Signs 12/09/18 1104 12/09/18 1108 BP: 95/75 95/75 Pulse: (!) 118 (!) 118 Weight: 93.3 kg (205 lb 9.6 oz) Height: 1.651 m (5' 5") BMI: Body mass index is 34.21 kg/m. Physical Exam Constitutional: She is oriented to person, place, and time. She appears well-dev eloped and well-nourished. HENT: Head: Normocephalic and atraumatic. Eyes: Pupils are equal, round, and reactive to light. EOM are normal. Neck: No JVD present. Cardiovascular: Exam reveals no gallop and no friction rub. No murmur heard. Irreg, irreg rate and rhythm Pulmonary/Chest: Breath sounds normal. Abdominal: Soft. Bowel sounds are normal. She exhibits no distension. Musculoskeletal: Normal range of motion. She exhibits no edema. Neurological: She is alert and oriented to person, place, and time. Skin: Skin is warm and dry. No erythema. Psychiatric: She has a normal mood and affect. EKG: Atrial Fibrillation Encounter Diagnoses Name Primary? 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 Paroxysmal atrial fibrillation. a. Status post recent hospitalization with initiation of Tikosyn and cardioversi on as outlined. Now with patient demonstrating recurrent atrial flutter with ve ntricular response in the 110s. As outlined, she reports compliance with Tikosy n and Coreg and Coumadin. b. I have elected to on utilize a Zio patch due to the fact that the patient berta carly seems to think that she has been intermittently in an atrial arrhythmia sta ting that she has documented controlled rates in the 60s. However, at the time of palpitations generally her rate is in the 110s-120s. I have also asked for Chhaya Daugherty's input on this patient's situation due to the fact that she has been f ollowed by Dr. Daugherty to determine what his preference would be. I have asked th at she follow up with Dr. Daugherty for first available appointment. 2. History of cardiomyopathy felt to be tachycardia-induced with an EF as low a s 35% by echo in August 2018. Most recently a AIDEN performed on 11/24/2018 demonst rated recovery of her EF to 63%. a. She will continue Coreg. Of note, patient reports that she had felt dizzy re cently and has held her losartan and her dizziness resolved. Of note, she did d emonstrate hypotension with a blood pressure as low as 92 when changing from a s eated to standing position. I did ask that she continue to hold her losartan fo r now and monitor her blood pressure. 3. Obstructive sleep apnea. a. With patient reporting compliance with CPAP. 4. Hypertension complicated by recent hypotension. As outlined, I have placed a Zio patch to determine what her actual atrial arrhy thmia burden may be. She will continue to hold her losartan, given her recent h ypotension with plans to reinitiate as soon as blood pressure is stable. She wi ll followup with Dr. Daugherty at the first available appointment. Treatment goals, progress and next steps, as above, were discussed and mutually agreed upon with the patient/family. Thank you for allowing me to participate in Pau Mccabe's care. If I can be o f any further assistance, please do not hesitate to contact me. Sincerely, Ze Basurto PA-C /musa documented in this encounter Plan of Treatment Not on filedocumented as of this encounter Procedures Comments Procedure Name Priority Date/Time Associated Diag nosis ECG Routine 12/09/2018 Paroxysmal atri al 11:16 AM CDT fibrillation (HCC) documented in this encounter Results * Cardiac Monitoring Patch (14 day) (12/09/2018 12:16 PM CDT) Specimen Narrative Performed At [facility] Test Date: 2018-12-30 Pat Name: PAU MCCABE Department: Room: Gender: Female Airfield Manager: : 1950 Requested By: ZE BASURTO Order Number: [id number] Jessica MD: Will Perkins Interpretive Statements [facility] [employer] [address] [place], [place] [address] MONITORING P ATCH REPORT Net Mender Date: 2018-12-30 RE: Pau Estelle : 1950 REFERRING PHYSICIAN: Sb REASON FOR MONITORING PATCH: Unspecifie d atrial fibrillation DATE RANGE: 12/09/18 to 12/23/18 NUMBER OF PAUSES: 0 CONCLUSION: During approximately 14 days of monitor ing the predominant rhythm was sinus rhythm with an average rhythm of 79 bpm (48-164 bpm). Atrial fibrillation was present with an overall burden of 2 6% with an average heart rate of 118 bpm (82-164 bpm). The longest run of atrial fibrillation lasted 2 days and one hour. There were 18 runs of supra ventricular tachycardia with the fastest lasting 7 beats (164 bpm) and t he longest lasting 12 seconds (HR 113 bpm). APCs and PVCs were rare (<1%). No pauses. Patient reported symptoms of "palpitati ons and fluttering" corresponded with atrial fibrillation, sinus rhythm, APCs and PVCs. Electronically Signed On 12-30-2018 18: 40:56 CDT by Will Perkins Procedure Note Interface, External Ris In - 12/30/2018 6:41 PM CDT [facility] Test Date: 2018-12-30 Pat Name: PAU MCCABE Department: Room: Gender: Female Airfield Manager: : 1950 Requested By: ZE BASURTO Order Number: [id number] Jessica MD: Will Perkins Interpretive Statements [facility] [employer] [address] [place], [place] [address] MONITORING PATCH REPORT Net Mender Date: 2018-12-30 RE: Pau Mccaeb : 1950 REFERRING PHYSICIAN: Sb REASON FOR MONITORING PATCH: Unspecified atrial fibrillation DATE RANGE: 12/09/18 to 12/23/18 NUMBER OF PAUSES: 0 CONCLUSION: During approximately 14 days of monitoring the predominant rhythm was sinus rhythm with an average rhythm of 79 bpm (48-164 bpm). Atrial fibrillation was present with an overall burden of 26% with an average heart rate of 118 bpm (82-164 bpm). The longest run of atrial fibrillation lasted 2 days and one hour. There were 18 runs of supraventricular tachycardia with the fastest lasting 7 beats (164 bpm) and the longest lasting 12 seconds (HR 113 bpm). APCs and PVCs were rare (<1%). No pauses. Patient reported symptoms of "palpitations and fluttering" corresponded with atrial fibrillation, sinus rhythm, APCs and PVCs. Electronically Signed On 12-30-2018 18:40:56 CDT by Will Perkins Performing Organization Address City/State/Zipcode Ph one Number [facility] * Electrocardiogram (ECG) (12/09/2018 11:16 AM CDT) QRSd 92 [facility] QT 360 [facility] QTC 503 [facility] ECGHR 117 [facility] Specimen Narrative Performed At [facility] Test Date: 2018-12-09 Pat Name: PAU MCCABE Department: [facility] Room: Gender: Female Airfield Manager: [id number] : 1950 Requested By: ZE BASURTO Order Number: [id number] Reading : Brent Agarwal Measurements Intervals [place] Rate: 117 P: MT: QRS: -2 QRSD: 92 T: 25 QT: 360 QTc: 503 Interpretive Statements Atrial flutter with variable AV conduct ion Electronically Signed On 12-09-2018 17:1 6:41 CDT by Brent Agarwal Procedure Note Interface, External Ris In - 12/09/2018 5:16 PM CDT [facility] Test Date: 2018-12-09 Pat Name: PAU MCCABE Department: [facility] Room: Gender: Female Airfield Manager: [id number] : 1950 Requested By: ZE BASURTO Order Number: [id number] Reading : Brent Agarwal Measurements Intervals [place] Rate: 117 P: MT: QRS: -2 QRSD: 92 T: 25 QT: 360 QTc: 503 Interpretive Statements Atrial flutter with variable AV conduction Electronically Signed On 12-09-2018 17:16:41 CDT by Brent Agarwal Performing Organization Address City/State/Zipcode Ph one Number [facility] documented in this encounter Visit Diagnoses Diagnosis Atrial flutter, unspecified type (HCC) Paroxysmal atrial fibrillation (HCC) Atrial fibrillation 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
--- OUTSIDE RECORDS SUMMARY | 2019-08-31 20:42 | XMS REPORT | Encounter Summary ---
Author Author [facility] Organization [facility] Address Unknown Phone Unavailable Care Team Providers Care Body Service Team Member Name Role Phone PCP Unavailable Encounter Details Care Team Description Date Type Department Tamica Forrest RN 11/19/2018 Orders for [address] [address] Social History Date Tobacco Use Types Packs/Day [...]
--- OUTSIDE RECORDS SUMMARY | 2019-08-31 20:42 | XMS REPORT | Encounter Summary ---
Author Author [facility] Organization [facility] Address Unknown Phone Unavailable Care Team Providers Care Pressure Vessel Inspector Name Role Phone Yulissa Zapata PCP Reason for Visit * Electrophysiology (Routine) Referred By Contact Referred To Contact Status Reason Specialty Diagnoses / Procedures Ze Basurto PA-C [address] [place] [address] [facility] [address] [place] [address] Closed Cardiology Diagnoses Atrial fibrillation, unspecified type (HCC) P rocedures Cardiac Monitoring Patch (14 day) Encounter Details Care Team Description Date Type Department Ze Basurto PA-C [address] [place] [address] [phone] Atrial fibrillation, unspecified type (H CC) 12/09/2018 Ancillary [facility] [address] [place], [place] [address] Social History Date Tobacco Use Types Packs/Day [...] Procedure Name Priority Date/Time Associated Diag nosis CARDIAC MONITORING PATCH Routine 12/09/2018 Atria l fibrillation, 12:16 PM CDT unspecified type (HCC) documented in this encounter Results * Cardiac Monitoring Patch (14 day) (12/09/2018 12:16 PM CDT) Specimen Narrative Performed At [facility] Test Date: 2018-12-30 Pat Name: PAU MCCABE Department: Room: Gender: Female Barrel Drum Cutter: : 1950 Requested By: ZE BASURTO Order Number: [id number] Jessica MD: Will Perkins Interpretive Statements [facility] [place] [address] [place] [address] MONITORING P ATCH REPORT Circulation Librarian Date: 2018-12-30 RE: Pau Mccabe : 1950 REFERRING PHYSICIAN: Sb REASON FOR [...] Ris In - 12/30/2018 6:41 PM CDT [facility] Test Date: 2018-12-30 Pat Name: PAU MCCABE Department: Room: Gender: Female Barrel Drum Cutter: : 1950 Requested By: ZE BASURTO Order Number: [id number] Jessica MD: Will Perkins Interpretive Statements [facility] [place] [facility] [address] [place] [address] MONITORING PATCH REPORT Circulation Librarian Date: 2018-12-30 RE: Pau Mccabe : 1950 REFERRING PHYSICIAN: Sb REASON FOR [...] Diagnosis Atrial fibrillation, unspecified type ( HCC) documented in this encounter
--- OUTSIDE RECORDS SUMMARY | 2019-08-31 20:42 | XMS REPORT | Encounter Summary ---
Author Author [facility] Organization [facility] Address Unknown Phone Unavailable Care Team Providers Care Instruments Sales Representative Name Role Phone Yulissa Zapata PCP Encounter Details Care Team Description Date Type Department Mirna Pratt LPN Persistent atrial fibrillation (HCC) 11/24/2018 Anticoag visit [facility] [address] [place] [address] Social History Date Tobacco Use Types Packs/Day [...] Progress Notes * Mirna Pratt LPN - 11/24/2018 2:09 PM CDT 11/25/18 1056: Attempted to call pt at listed mobile number, went straight to [facility] and voicemail was full. Called on listed home number, a man answered the phone. Asked for Brynn and the man stated, "Umm, I'm not with her right now, yo u'll have to call her number. Thank you". Phone call become disconnected. Derrick ESTEVEZ * Mirna Pratt LPN - 11/24/2018 2:09 PM CDT Kristina Conrad NP P [facility] Anticoagulation Nurses Patient wishes to change to our anticoagulation clinic, previously managed by luciana sethi puller out in [place], [place]. INR on day of discharge 1.8. She currently selvin tors with home machine. I instructed her to recheck in two days (11/26/18). Disch arging on warfarin 2.5mg daily. documented in this encounter Plan of Treatment Not on filedocumented as of this encounter Visit Diagnoses Diagnosis Persistent atrial fibrillation (HCC) Atrial fibrillation documented in this encounter
--- OUTSIDE RECORDS SUMMARY | 2019-08-31 20:42 | XMS REPORT | Encounter Summary ---
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 Atrial fibrillation (HCC) aiden A trial fibrillation (HCC) Procedures ECHO TRANSESOPHAGEAL WITH DOPPLER AND COLOR FLOW Encounter Details Care Team Description Date Type Department Owen Yang MD [address] [place] [address] [phone] 11/20/2018 [facility] [address] [place], [place] [id number] Anesthesia Record Responsible Anesthesiologist Anesthesia Start Time Anesthesi a Stop Time Procedure Name Owen Yang MD 11/20/18 0913 11/20/18 0931 ECHO TRANSESOPHAGEAL WITH DOPPLER AND COLOR FLOW Date Time Event Comment 755 Anesthesia 2019 Initial Contact 09 09 AN Equip Check 0913 In room 0913 An Start 0913 An Start Data 0916 Pt eval immediately prior to anesthesia 0916 An Induction 0918 Procedure start - Primary Case 0929 Procedure stop - Primary case 0929 an stop data 0929 Out of Room 0931 Handoff I completed my SBAR handoff to the receiving nurse in the PACU/ICU/OB Patient and PACU/ICU/OB nurse identifie d Discussed patient medical history Discussed procedure Reviewed intraopera tive anesthetic management and issues/concerns Discussed expectation f or early post-procedure period Questions from PACU/ICU/OB team address ed 0931 An Stop Meds Name Total propofol 10mg/mL 50 mg propofol infusion 10mg/mL 57 mg sodium chloride 0.9% 0 mL * Name Cell Saver Blood Intake O2 N2O Air EtSEVO EtISO EtDES EtN2O * No blood administrations on file. Removal Type Details Placement 11/23/18 0000 by Jeannette Pablo RN Peripheral Date: 11/20/18; Time: 08; Size 11/20 0825 by Lissett Cheyanne IV (gauge): 20 G; Orientation: Left; Mary Kay javed RN Location: Forearm; Removal Date: 11/23/18 documented in this encounter Social History Date [...] Miscellaneous Notes * Anesthesia Postprocedure Evaluation - Owen Yang MD - 11/20/2018 10:02 AM CDT Anesthesia Post Evaluation * No procedures listed * Surgeon: * No surgeons listed * Patient Evaluated in: PACU Patient Participation: complete - patient participated Level of Consciousness: awake and alert Pain Score: 0, with adequate pain management. Airway Patency: patent Respiratory Status: spontaneous ventilation Cardiovascular Status: hemodynamically stable Postoperative Hydration: euvolemic Postop Nausea/Vomiting: no PONV in PACU Multimodal analgesia not used for 6 hours prior to anesthesia start through PACU discharge. Anesthetic Complications: No Appropriate for discharge from anesthesia care, no apparent anesthesia related c omplication ANE Post Eval Vitals Most Recent Value BP 90/61 filed at 11/20/2018 0945 Pulse (!) 105 filed at 11/20/2018 0945 Temp 36.7 C (98.1 F) filed at 11/20/2018 0931 Resp 19 filed at 11/20/2018 0945 SpO2 95 % filed at 11/20/2018 0945 * Anesthesia Preprocedure Evaluation - Owen Yang MD - 11/20/2018 7:58 AM CDT Anesthesia Evaluation Patient summary, Nursing notes and ECG reviewed No history of anesthetic complications History of alcohol use. NO history of tobacco and drug use. The patient's alcohol consumption fits t he low-risk criteria. Airway Mallampati: II TM distance: >3 FB Neck ROM: limited Adequate mouth opening No prominent facial hair Dental Pulmonary (+) decreased breath sounds, Cardiovascular Exercise tolerance: poor (+) hypertension, valvular problems/murmurs (TR) MR, dysrhythmias atrial fib/flu tter, murmur, Hyperlipidemia, ECG reviewed Rhythm: regular Neuro/Psych GI/Hepatic/Renal (+) GERD, Endo/Other Abdominal (+) obese, Abdomen: soft. Bowel sounds: normal. Obstetrics HEENT Musculoskeletal Anesthesia Plan ASA 3 Type: general and MAC () Patient was taking beta blockers as a home medication. Beta john will be manju ntained perioperatively. Anesthetic plan and risks discussed with patient. Use of blood products discussed with whom consented to blood products. Plan discussed with anesthesiologist health assistant and resident. Post-operative analgesia: routine analgesia and antiemetics PONV risk level: low Notes Patient evaluated. Consent obtained. Labs reviewed. Plan for MAC for AIDEN. documented in this encounter Plan of Treatment Not on filedocumented as of this encounter Visit Diagnoses Not on filedocumented in this encounter Administered Medications Action Date Dose Rate Site Medication Order MAR Action 11/20/2018 9:19 AM CDT 50 mcg/kg/min 28.5 mL/hr propofol (DIPRIVAN) infusion 10 mg/mL New Bag Continuous PRN, Starting Gabby 11/20/18 at 0919, Anesthesia Intra-op 11/20/2018 9:18 AM CDT 50 mg propofol (DIPRIVAN) injection Given As needed, Starting Gabby 11/20/18 at 0918 , Anesthesia Intra-op 11/20/2018 9:18 AM CDT sodium chloride 0.9% infusion New Bag Intravenous, Continuous PRN, Starting Gabby 11/20/18 at 0918, Anesthesia Intra-o p documented in this encounter
--- OUTSIDE RECORDS SUMMARY | 2019-08-31 20:42 | XMS REPORT | Encounter Summary ---
Author Author [facility] Organization [facility] Address Unknown Phone Unavailable Care Team Providers Care Hot Dimpling Machine Operator Name Role Phone Yulissa Zapata PCP Reason for Visit * Reason Comments INR Reminder 1st Attempt Encounter Details Care Team Description Date Type Department Rebeca Green, RESEARCH METHODS INSTRUCTOR FORENSIC DNA ANALYST [address] [place] [address] [phone] INR Reminder (1st Attempt ) 12/04/2018 Telephone [facility] [address] [place] [address] Social History Date Tobacco Use Types Packs/Day [...] * Telephone Encounter - Nilson Holguin - 12/04/2018 9:28 AM CDT Called pt Left Detail Message on VML for a return call in regards to INR Reminde r being past due. TQ documented in this encounter Plan of Treatment Not on filedocumented as of this encounter Visit Diagnoses Not on filedocumented in this encounter
--- OUTSIDE RECORDS SUMMARY | 2019-08-31 20:42 | XMS REPORT | Encounter Summary ---
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 Atrial fibrillation (HCC) christi A trial fibrillation (HCC) Procedures ECHO TRANSESOPHAGEAL WITH DOPPLER AND COLOR FLOW Encounter Details Care Team Description Date Type Department Nirav Anderson MD [address] [place] [address] [phone] Jeannette Herbert DO [address] [facility] [place] [address] [phone] 11/24/2018 [facility] [address] [place] [address] Anesthesia Record Responsible Anesthesiologist Anesthesia Start Time Anesthesi a Stop Time Procedure Name Nirav Anderson MD 11/24/18 0918 11/24/18 0935 ECHO TRANSESOPHAGEAL WITH CARDIOVERSION WITH DOPPLER AND COLOR FLOW Date Time Event Comment 914 Anesthesia 2019 Initial Contact 0916 0918 AN Equip Check 0918 In room 0918 An Start 0918 An Start Data 0918 Pt eval immediately prior to anesthesia 0921 An Induction 0924 Procedure start - Primary Case 0930 Synchronized Cardioversion (joules) 0931 Procedure stop - Primary case 0934 an stop data 0934 Out of Room 0935 Handoff I completed my SBAR handoff to the receiving nurse in the PACU/ICU/OB Patient and PACU/ICU/OB nurse identifie d Discussed patient medical history Discussed procedure Reviewed intraopera tive anesthetic management and issues/concerns Discussed expectation f or early post-procedure period Questions from PACU/ICU/OB team address ed 0935 An Stop Meds Name Total propofol 10mg/mL 40 mg propofol infusion 10mg/mL 90.45 mg sodium chloride 0.9% 150 mL * Name Cell Saver Blood Intake O2 N2O Air EtSEVO EtISO EtDES EtN2O * No blood administrations on file. Removal Type Details Placement 11/24/18 1422 by Sandra Booker RN Peripheral Date: 11/23/18; Size (gauge): 20 G; 0000 by IV Orientation: Distal, Left; Location: Iqra Pablo RN Forearm; Inserted By: ZULLY Sheets; Removal Date: 11/24/18; Removal Time: 1422 11/24/18 1422 by Sandra Booker RN Peripheral Date: 11/24/18; Time: 816; Size 11/24 0817 by Ann IV (gauge): 20 G; Orientation: Distal, Dottie owusu RN Right; Location: Forearm; Removal Date: 11/24/18; Removal Time: 1422 documented in this encounter Social History Date [...] Notes * Anesthesia Postprocedure Evaluation - Nirav Anderson MD - 11/24/2018 9:52 AM CDT Anesthesia Post Evaluation * No [...] Eval Vitals Most Recent Value BP (!) 85/62 filed at 11/24/2018 0945 Pulse (!) 53 filed at 11/24/2018 0945 Temp 36.5 C (97.7 F) filed at 11/24/2018 0934 Resp 18 filed at 11/24/2018 0945 SpO2 97 % filed at 11/24/2018 0945 * Anesthesia Preprocedure Evaluation - Nirav Anderson MD - 11/24/2018 9:16 AM CDT Anesthesia Evaluation Patient summary, Nursing [...] Musculoskeletal Anesthesia Plan ASA 3 Type: general () Patient was taking beta blockers as a home medication. Beta john will be manju ntained perioperatively. Anesthetic plan and risks discussed with patient. Use of blood products discussed with whom consented to blood products. Plan discussed with anesthesiologist blood and plasma laboratory assistant and resident. Post-operative analgesia: routine analgesia and antiemetics PONV risk level: low Notes Patient evaluated. Consent obtained. Labs reviewed. documented in this encounter Plan of Treatment Not on filedocumented as of this encounter Visit Diagnoses Not on filedocumented in this encounter Administered Medications Action Date Dose Rate Site Medication Order MAR Action 11/24/2018 9:26 AM CDT 120 mcg/kg/min 66.46 mL/hr propofol (DIPRIVAN) infusion 10 mg/mL Rate/Dose Continuous PRN, Starting 11/24/18 at Change 0921, Anesthesia Intra-op 100 mcg/kg/min 55.38 mL/hr New Bag 11/24/2018 9:21 AM CDT 11/24/2018 9:21 AM CDT 40 mg propofol (DIPRIVAN) injection Given As needed, Starting Sat11/24/18 at 0921 , Anesthesia Intra-op 11/24/2018 9:18 AM CDT sodium chloride 0.9% infusion New Bag Intravenous, Continuous PRN, Starting Sat11/24/18 at 0918, Anesthesia Intra-o p documented in this encounter
--- OUTSIDE RECORDS SUMMARY | 2019-08-31 20:43 | XMS REPORT | Encounter Summary ---
Author Author [facility] Organization [facility] Address Unknown Phone Unavailable Care Team Providers Care Shagger Name Role Phone PCP Unavailable Encounter Details Care Team Description Date Type Department Dayton Daugherty MD [address] [place], [place] [id number] 10/20/2018 Documentation [facility] [address] [place] [address] Social History Date Tobacco Use Types Packs/Day Years Used Never Assessed Sex Assigned at Date Recorded Not on file Industry Job Start Date Occupation Not on file Not on file Not on file Travel End Travel History Travel Start No recent travel history available. documented as of this encounter Plan of Treatment Not on filedocumented as of this encounter Procedures Comments Procedure Name Priority Date/Time Associated Diag nosis HOLTER OUTSIDE RECORD Routine 09/10/2018 EKG OUTSIDE RECORD Routine 09/03/2018 9:39 AM CDT CORONARY ANGIOGRAM Routine 09/03/2018 OUTSIDE RECORD 9:36 AM CDT documented in this encounter Results * Holter Outside Record (09/10/2018) Impressions Performed At 24 Hour Holter: Atrial fib with RVR. No ventricular ectopy identified. Diary entries of palpitations, short winded a ll occurred with atrial fib with HR from 98 to 152 bpm. ([facility] ) Narrative Performed At This result has an attachment that is n ot available. * Coronary Angiogram Outside Record (09/03/2018 9:36 AM CDT) Impressions Performed At 1. There is no angiographic evidence of obstructive coronary artery disease. 2. Abnormal left ventricular systolic function consistent with a nonischemic cardiomyopathy. 3. Elevated biventricular filling pre ssures. 4. Mild pulmonary hypertension likely secondary to increased left ventricular and diastolic pressure. 5. No evidence of intracardiac shunti ng. 6. Normal cardiac output/cardiac inde x. Narrative Performed At This result has an attachment that is n ot available. documented in this encounter Visit Diagnoses Not on filedocumented in this encounter
--- OUTSIDE RECORDS SUMMARY | 2019-08-31 20:43 | XMS REPORT | Encounter Summary ---
Author Author [facility] Organization [facility] Address Unknown Phone Unavailable Care Team Providers Care Home Health Travel Ot Name Role Phone PCP Unavailable Reason for Visit * Reason Comments Atrial fibrillation Encounter Details Care Team Description Date Type Department Hammad Joy RN Atrial fibrillation, unspecified type (H CC) (Primary Dx) 11/03/2018 Nurse Only [facility] [address] [place] [address] Social History Date Tobacco Use Types Packs/Day [...] as of this encounter Progress Notes * Hammad Joy, RN - 11/03/2018 9:30 AM CDT Patient seen as part of the Atrial Fibrillation Education DNP project I am tom zarate. Patient gave verbal consent to participate in this project. She completed e demographic sheet and JAKQ and MTA questionnaires. I demonstrated how to downl oad and access the [employer] mobile application. I showed her the videos rela ting to atrial fibrillation in the mobile application. Reminded patient to watch for 3 month follow up questionnaires via email. Hammad Joy, 11/03/2018 4:07 PM documented in this encounter Plan of Treatment Not on filedocumented as of this encounter Visit Diagnoses Diagnosis Atrial fibrillation, unspecified type ( HCC) documented in this encounter
--- OUTSIDE RECORDS SUMMARY | 2019-08-31 20:43 | XMS REPORT | Clinical Summary ---
Author Author [facility] Organization [facility] Address Unknown Phone Unavailable Care Team Providers Care Mobile Phone Salesperson Name Role Phone Yulissa Zapata MD PCP Source Comments Some departments are not documenting in the electronic medical record. If you d o not see the information that you expected, contact Release of Information in doctors hospital Code [facility] Information Management department at [phone] for further assistan ce in locating additional records.[facility] Allergies No Known Allergies Medications End Date Status Medication Sig Dispensed Refills Start Date Active biotin 1 mg cap Take 10,000 0 mcg by mouth. Active carvediloL (COREG) 25 mg Take 25 mg by 0 11/24 tablet mouth. 9 07/16/2020 Active dilTIAZem CD (CARDIZEM Take 120 mg 0 02 CD) 120 mg capsule by mouth. 0 Active dofetilide (TIKOSYN) 125 Take 125 mcg 0 07/08 mcg capsule by mouth 0 every [address]. [address] (NEXIUM) 0 40 mg capsule 0 Active furosemide (LASIX) 40 mg Take 40 mg by 0 01/08 tablet mouth daily 4 as needed. Active PARoxetine (PAXIL) 10 mg 0 tablet 0 Active potassium chloride Take 10 mEq 0 (KLOR-CON) 10 mEq tablet by mouth. 4 12/19/2019 Active warfarin (COUMADIN) 1 mg Take 1.5 mg 0 12/19 tablet by mouth. 9 Active Problems No known active problems Encounters Care Team Description Date Type Specialty Damon Gallegos MD EGChhaya 08/28/2019 Surgery Gastroenterology Enzo Jay MD Lathrop, Ellen, CRNA 08/28/2019 Anesthesia Gastroenterology Event Roberto Carlos Eubanks MD ESOPHAGEAL MOTILITY STUDY 08/28/2019 Surgery Gastroenterology Roberto Carlos Eubanks MD Dysphagia, unspecified type 08/28/2019 Hospital Gastroenterology Encounter 08/28/2019 Travel Cecilia Becerril MA Dysphagia, unspecified type 08/27/2019 Orders Only Gastroenterology Damon Gallegos MD 07/30/2019 Telephone Gastroenterology Damon Gallegos MD Dysphagia, unspecified type (Primary Dx) 07/30/2019 Prep for Case Gastroenterology Damon Gallegos MD Dysphagia, unspecified type (Primary Dx) 07/30/2019 Prep for Case Gastroenterology Damon Gallegos MD Pervez, Asad, WILD Dysphagia, unspecified type (Primary Dx) 07/29/2019 Scheduled Gastroenterology Telephone from Last 3 Months Social History Date Tobacco Use Types Packs/Day Years Used Never Smoker Smokeless Tobacco: Never Used Drinks/Week oz/Week Comments Alcohol Use Yes Sex Assigned at Date Recorded Female 08/11/2019 1:16 PM CDT Industry Job Start Date Occupation Not on file Not on file Not on file Travel End Travel History Travel Start No recent travel history available. Date Recorded COVID-19 Exposure Response 08/28/2019 10:44 AM CDT In the last month, have you been in contact with No / Unsure someone who was confirmed or suspected to have Coronavirus / COVID-19? Last Filed Vital Signs Reading Time Taken Comments Vital Sign 126/69 08/28/2019 1:55 PM CDT Blood Pressure 92 08/28/2019 1:55 PM CDT Pulse 36.5 C (97.7 F) 08/28/2019 1:30 PM CDT Temperature - - Respiratory Rate 98% 08/28/2019 1:55 PM CDT Oxygen Saturation - - Inhaled Oxygen Concentration 95.3 kg (210 lb) 08/28/2019 10:38 AM CDT Weight 165.1 cm (5' 5") 08/28/2019 10:38 AM CDT Height 34.95 08/28/2019 10:38 AM CDT Body Mass Index Plan of Treatment Health Maintenance Due Date Last Done Comments MEDICARE ANNUAL WELLNESS 1950 VISIT DTAP/TDAP VACCINES (1 - 01/08/1966 Tdap) HEPATITIS C SCREENING 01/08/1966 PHYSICAL (COMPREHENSIVE) 01/08/1966 EXAM BREAST CANCER SCREENING 1988 COLORECTAL CANCER 01/08/1998 SCREENING SHINGLES RECOMBINANT 01/08/1998 VACCINE (1 of 2) OSTEOPOROSIS 01/08/2013 SCREENING/MONITORING PNEUMONIA (PPSV23) 01/08/2013 VACCINE (1 of 1 - PPSV23) INFLUENZA VACCINE 12/10/2019 Procedures Comments Procedure Name Priority Date/Time Associated Diag nosis HC LVL IV SRG PTH, GROSS Routine 08/28/2019 Dysph agia, unspecified & MICRO 1:06 PM CDT type ESOPHAGOGASTRODUODENOSCOP 08/28/2019 Dysphagia, unspecified Y WITH LIMITED ENDOSCOPIC 12:57 PM CDT type ULTRASOUND EXAMINATION - FLEXIBLE Special Needs On 1st Call List / Next 2 Wks or so ESOPHAGOGASTRODUODENOSCOP 08/28/2019 Dysphagia, unspecified Y WITH SPECIMEN 12:57 PM CDT type COLLECTION BY BRUSHING/ WASHING Special Needs On 1st Call List / Next 2 Wks or so ENDOSCOPIC ULTRASOUND 08/28/2019 REPORT 12:13 PM CDT ESOPHAGEAL MOTILITY STUDY 08/28/2019 Dysphagia, unspecified 9:28 AM CDT type Special Needs Pre call message left for patient regarding esophageal manometry scheduled on 08/28/19 @ 0945. LVMOn 1st Call List / Next 2 to 3 Wks or so TELEMETRY STRIPS-SCAN 08/28/2019 12:00 AM CDT from Last 3 Months Results * SURGICAL PATHOLOGY (08/28/2019 1:06 PM CDT) PATHOLOGY [email or web address] Department of Pathology and Laboratory Medicine [address] [place] [id number] Surgical Pathology Office: [phone] SURGICAL PATHOLOGY REPORT NAME: PAU MCCABE F. SURG PATH #: [id number] MR #: [id number] SPECIMEN CLASS: SR BILLING #: [id number] ALT ID #: LOCATION: END DATE OF PROCEDURE: 08/28/2019 AGE: 69 SEX: F DATE RECEIVED: 08/28/2019 : 1950 TIME RECEIVED: 13:30 PHYSICIAN: DAMON TALBOT DATE OF REPORT: 08/31/2019 COPY TO: DATE OF PRINTIN08/31/2019 ############################## ############################## ############ Final Diagnosis: A. Squamous mucosa, "esophagus distal bx r/o EOE", biopsy: Basal layer hyperplasia and rare eosinophils (1 per hpf), consistent with reflux esophagitis. B. Squamous mucosa, "esophagus proximal bx r/o EOE", biopsy: No diagnostic abnormalities. Attestation: By this signature, I attest that I have personally formulated the final interpretation expressed in this report and that the above diagnosis is based upon my examination of the slides and/or other material indicated in this report. +++ +++ kj/08/28/2019 ############################## ############################## ############ Material Received: A: esophagus distal bx r/o EOE B: esophagus proximal bx r/o EOE History: 69-year-old female with a history of dysphagia, unspecified type. A. Rule out EOE. Gross Description: A. Received in formalin labeled "esophagus distal biopsy rule out EOE" is a 0.5 x 0.3 x 0.1 cm aggregate of cook-brown soft tissue fragments. The specimen is entirely submitted in cassette A1. (wlm) B. Received in formalin labeled "esophagus proximal biopsy rule out EOE" is a 0.5 x 0.3 x 0.1 cm aggregate of cook-brown soft tissue fragments. The specimen is entirely submitted in cassette B1. (wlm) wlm/08/28/2019 Specimen Tissue - Esophagus Tissue - Esophagus Performing Organization Address City/State/Zipcode Ph one Number MAIN LAB [address] [place] [address] * ENDOSCOPIC ULTRASOUND REPORT (08/28/2019 12:13 PM CDT) Provation Patient Name: Estelle MAC OTHER Report Procedure Date: 08/28/2019 RESULTS 12:13 PM CSN: [id number] Date of : 1950 Gender: Female Attending Physician: Damon Gallegos MD Procedure: Upper EUS Indications: Dysphagia Providers: Damon Gallegos MD (Doctor), Ford Mclain MD (Fellow), Rylan Sal RN (Nurse), Jori Thomas, Auto Mechanic (Auto Mechanic) Referring Physician: Yulissa Zapata Medications: Monitored Anesthesia Care Complications: No immediate complications. Procedure: Pre-Anesthesia Assessment: - Prior to the procedure, a History and Physical was performed, and patient medications and allergies were reviewed. The patient's tolerance of previous anesthesia was also reviewed. The risks and benefits of the procedure and the sedation options and risks were discussed with the patient. All questions were answered, and informed consent was obtained. Prior Anticoagulants: The patient has taken no previous anticoagulant or antiplatelet agents. ASA Grade Assessment: II - A patient with mild systemic disease. After reviewing the risks and benefits, the patient was deemed in satisfactory condition to undergo the procedure. After obtaining informed consent, the endoscope was passed under direct vision. Throughout the procedure, the patient's blood pressure, pulse, and oxygen saturations were monitored continuously. The Endoscope was introduced through the mouth, and advanced to the second part of duodenum. The Endoscope was introduced through the and advanced to the. After obtaining informed consent, the endoscope was passed under direct vision. Throughout the procedure, the patient's blood pressure, pulse, and oxygen saturations were monitored continuously.The upper EUS was accomplished without difficulty. The patient tolerated the procedure well. Findings: EGD scope was passed Esophagus: Significant contractions were seen and resistance was felt to the passage of the scope at the GE junction. GE junction was at 37 cm. Biopsies were taken from distal and proximal esophagus to rule out eosinophilic esophagitis. Stomach: Normal-appearing D1-D2: Normal We then passed the radial EUS scope. Celiac axis was seen and there were no celiac lymph nodes visualized. The left adrenal and the left lobe of the liver were normal-appearing. The pancreas appeared normal without any evidence of chronic pancreatic or mass or divisum. The region of the distal esophagus and GE junction was carefully visualized. No perigastric or periesophageal lymph nodes were seen. No mass lesions were seen in the wall of the distal esophagus or GE junction. The muscularis propria was thickened to 6.6 mm at the GE junction. At 30 cm it was thickened to 5.6 mm and at 25 cm it was 1.5 mm majority of it was composed of the inner circular layer. Impression: EGD scope was passed Esophagus: Significant contractions were seen and resistance was felt to the passage of the scope at the GE junction. GE junction was at 37 cm. Biopsies were taken from distal and proximal esophagus to rule out eosinophilic esophagitis. Stomach: Normal-appearing D1-D2: Normal We then passed the radial EUS scope. Celiac axis was seen and there were no celiac lymph nodes visualized. The left adrenal and the left lobe of the liver were normal-appearing. The pancreas appeared normal without any evidence of chronic pancreatic or mass or divisum. The region of the distal esophagus and GE junction was carefully visualized. No perigastric or periesophageal lymph nodes were seen. No mass lesions were seen in the wall of the distal esophagus or GE junction. The muscularis propria was thickened to 6.6 mm at the GE junction. At 30 cm it was thickened to 5.6 mm and at 25 cm it was 1.5 mm majority of it was composed of the inner circular layer. Estimated Blood Loss: Estimated blood loss: none. Recommendation: - Patient has a contact number available for emergencies. The signs and symptoms of potential delayed complications were discussed with the patient. Return to normal activities tomorrow. Written discharge instructions were provided to the patient. - Resume previous diet. - Continue present medications. - Await path results. - Return to referring physician. Scope In: 1:03:33 PM Scope Out: 1:24:31 PM Total Procedure Duration Time 0 hours 20 minutes 58 seconds Procedure Code(s): --- Professional --- 71775, Esophagogastroduodenoscopy, flexible, transoral; with endoscopic ultrasound examination limited to the esophagus, stomach or duodenum, and adjacent structures 49384, Esophagogastroduodenoscopy, flexible, transoral; with biopsy, single or multiple CPT copyright 2019 [employer]. All rights reserved. The codes documented in this report are preliminary and upon supervisor gas meter repair review may be revised to meet current compliance requirements. Attending Participation: I personally performed the entire procedure. Damon Gallegos MD 08/28/2019 1:33:43 PM The attending physician has electronically signed and finalized this document. Ford Mclain MD Number of Addenda: 0 Note Initiated On: 08/28/2019 12:13 PM Specimen Performing Organization Address City/State/Zipcode Ph one Number [facility] OTHER RESULTS * TELEMETRY STRIPS-SCAN (08/28/2019 12:00 AM CDT) Narrative Performed At This result has an attachment that is n ot available. Ordered by an unspecified provider. from Last 3 Months Insurance Type Payer Benefit Subscriber ID Effective Phone Address Plan / Dates Group Medicare MEDICARE MEDICARE xxxxxxxxxxx 2012- PART A AND Present B Medicare CIGNA CIGNA xxxxxxxxxx 2014-P MEDICARE resent SUPPLEMENT Advance Directives Patient [place] Explanation Type Date Recorded Advance Directive/DPOA
--- OUTSIDE RECORDS SUMMARY | 2019-08-31 20:43 | XMS REPORT | Encounter Summary ---
Author Author [facility] Organization [facility] Address Unknown Phone Unavailable Care Team Providers Care Barbering Instructor Name Role Phone PCP Unavailable Encounter Details Care Team Description Date Type Department Dayton Daugherty MD [address] [place] [address] [phone] 10/27/2018 Documentation [facility] [address] [place] [address] Social History Date Tobacco Use Types Packs/Day [...]
--- OUTSIDE RECORDS SUMMARY | 2019-08-31 20:43 | XMS REPORT | Encounter Summary ---
Author Author [facility] Organization [facility] Address Unknown Phone Unavailable Care Team Providers Care Crop Roller Name Role Phone Yulissa Zapata PCP Encounter Details Care Team Description Date Type Department Tamica Correa RN 11/12/2018 Orders for [address] [address] Social History Date Tobacco Use Types Packs/Day [...]
--- OUTSIDE RECORDS SUMMARY | 2019-08-31 20:43 | XMS REPORT | Encounter Summary ---
Author Author [facility] Organization [facility] Address Unknown Phone Unavailable Care Team Providers Care Inker Machine Name Role Phone PCP Unavailable Encounter Details Care Team Description Date Type Department Lorena Curry RN 10/29/2018 Abstract [facility] [address] [place] [address] Social History Date Tobacco Use Types Packs/Day Years Used Never Assessed Sex Assigned at Date Recorded Not on file Industry Job Start Date Occupation Not on file Not on file Not on file Travel End Travel History Travel Start No recent travel history available. documented as of this encounter Plan of Treatment Date/Time Name Type Priority Associated Diag noses 10/29/2018 12:32 PM CDT Echo Outside Record Echocardiograph Routine y documented as of this encounter Visit Diagnoses Diagnosis Mixed hyperlipidemia Essential hypertension Unspecified essential hypertension documented in this encounter
--- OUTSIDE RECORDS SUMMARY | 2019-08-31 20:43 | XMS REPORT | Encounter Summary ---
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 P rocedures Echo Transesophageal with Doppler and Color Flow * Diagnostic Imaging (Routine) Referred By Contact Referred To Contact Status Reason Specialty Diagnoses / Procedures Lauro Daugherty MD [address] [facility] [address] [place] [address] Closed Diagnoses Atrial fibrillation, unspecified type (HCC) P rocedures Electrocardiogram (ECG) without magnet Reason for Visit * Reason Comments Atrial flutter Atrial fibrillation Encounter Details Care Team Description Date Type Department Lauro Daugherty MD [address] [facility] [address] [place] [address] [phone] Atrial fibrillation, unspecified type (H CC) (Primary Dx); Essential hypertension; 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; Non-rheumatic mitral regurgitation 11/03/2018 Office Visit [facility] [address] [facility] [address] [place] [address] Social History Date Tobacco Use Types Packs/Day [...] Signs Reading Time Taken Comments Vital Sign 99/63 11/03/2018 1:05 PM CDT Blood Pressure 85 11/03/2018 1:05 PM CDT Pulse - - Temperature - - Respiratory Rate - - Oxygen Saturation - - Inhaled Oxygen Concentration 95.7 kg (211 lb) 11/03/2018 1:05 PM CDT Weight 165.1 cm (5' 5") 11/03/2018 1:05 PM CDT Height 35.11 11/03/2018 1:05 PM CDT Body Mass Index documented in this encounter Patient Instructions * Patient Instructions* Joleen Mccarthy RN - 11/03/2018 1:15 PM CDT We will contact you to discuss Tikosyn admission as soon as possible Medication Instructions: Continue Current Regimen Follow up with MD Dr. Lauro Daugherty Please call the Nurse Line at [phone] (EP Nurse Team). with any questions o r concerns. For medication refill needs, please first contact your pharmacy. For any [facility] scheduling questions, please john daigle . At [facility], high quality patient care is our top priority. To ensure our cardiovascular standards are continuously met, you may receive a survey via Vetr il or text message, and we ask that you please take the time to fill it out. We strive to ensure you are very satisfied with every visit. Thank you in advance for taking the time to fill this out. It was a pleasure to meet you. Joleen, RN documented in this encounter Progress Notes * Lauro Daugherty MD - 11/03/2018 1:15 PM CDT [facility] [place] Appointment Date: 11/03/2018 RE: Pau Mccabe : 1950 Visit provider: Lauro Daugherty MD I had the pleasure of seeing Pau Mccabe in the office today. She is a(n) 68 y .o. female and presents with the following chief complaint(s): Atrial flutter an d Atrial fibrillation HPI: I saw Ms. Mccabe today accompanied by her in clinic. I [...] remains extremely short of breath consistent with [place] [employer] class III status. 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 Abn ormal left ventricular systolic function consistent with a nonischemic cardiomyo quin. HYSTERECTOMY 03/2003 REPAIR, ROTATOR CUFF Right 04/2009 [...] systems reviewed and are negative. Vital Signs 11/03/18 1305 BP: 99/63 Pulse: [...] fibrillation, unspecified type (HCC) Yes Essential hypertension custodial current use of anticoagulant therapy Non-rheumatic mitral [...] rhythm control. This wo uld likely require AIDEN prior to the loading. 2. Proceed with attempts at more effective rate control, whether it is through medications or through an AV node ablate and VETERINARY PHARMACOLOGIST-P device. This would hopefully result in improvement [...] have her admitted where she will undergo AIDEN to confirm absence of left atrial appendage [...] contact me. Sincerely, Lauro Daugherty MD /lmb documented in this encounter Miscellaneous Notes * Addendum Note - Joleen Mccarthy RN - 11/03/2018 1:15 PM CDT Addended by: JOLEEN MCCARTHY on: 11/03/2018 03:28 PM Modules accepted: Orders documented in this encounter Plan of Treatment Not on filedocumented as of this encounter Procedures Comments Procedure Name Priority Date/Time Associated Diag nosis ECG Routine 11/03/2018 Atrial fibrilla tion, 1:08 PM CDT unspecified type (HCC) documented in this encounter Results * Echo Transesophageal with Doppler and Color [...] At [facility] Transesophageal Echocardiogram Report Name: PAU MCCABE Date: 11/20/2018 09:10 Chart #: [id number] : 1950 Gender F Location: [facility] OP Sono: ab ler : Age: 68 Room #: OP Referring: LAURO DAUGHERTY MD Fellow: Indication: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 Informed consent was obtained. 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 Informed consent was obtained. The procedure was performed in the PACU. The patient was sedated and monitored by Anesthesia staff. The AIDEN probe was passed without difficulty. The patient [...] 20 November 2018 12:52 Performing Organization Address City/[facility] Ph one Number PROSOLV * Electrocardiogram (ECG) without magnet (11/03/2018 1:08 PM CDT) QRSd 90 TRACEMASTER QT 356 TRACEMASTER QTC 480 TRACEMASTER ECGHR 109 TRACEMASTER Specimen Narrative Performed At [facility] Date: 2018-11-03 Pat Name: PAU MCCABE Department: [facility] Room: Gender: Female Help Aid: [id number] : 1950 Requested By: LAURO DAUGHERTY Order Number: [id number] Reading MD: Lauro Daugherty Measurements Intervals [place] Rate: 109 P: [place]: QRS: -11 QRSD: 90 T: 41 QT: 356 QTc: 480 Interpretive Statements ATRIAL FIBRILLATION, V-RATE 88-134 PROBABLE INFERIOR INFARCT, AGE INDETERM INATE CONSIDER POSTERIOR WALL INVOLVEMENT Electronically Signed On 11-10-2018 9:18: 14 CDT by Lauro Daugherty Procedure Note Interface, External Ris In - 11/10/2018 9:18 AM CDT [facility] Date: 2018-11-03 Pat Name: PAU MCCABE Department: [facility] Room: Gender: Female Help Aid: [id number] : 1950 Requested By: LAURO DAUGHERTY Order Number: [id number] Reading MD: Lauro Daugherty Measurements Intervals [place] Rate: 109 P: [place]: QRS: -11 QRSD: 90 T: 41 QT: 356 QTc: 480 Interpretive Statements ATRIAL FIBRILLATION, V-RATE 88-134 PROBABLE INFERIOR INFARCT, AGE INDETERMINATE CONSIDER POSTERIOR WALL INVOLVEMENT Electronically Signed On 11-10-2018 9:18:14 CDT by Lauro Daugherty Performing Organization Address [facility] Ph one Number TRACEMASTER documented in this encounter Visit Diagnoses Diagnosis Atrial fibrillation, unspecified type ( HCC) Essential hypertension Unspecified essential hypertension 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
--- OUTSIDE RECORDS SUMMARY | 2019-08-31 20:43 | XMS REPORT | Encounter Summary ---
Author Author [facility] Organization [facility] Address Unknown Phone Unavailable Care Team Providers Care Sagger Filler Name Role Phone PCP Unavailable Encounter Details Care Team Description Date Type Department Anastasia Olmstead LPN 11/12/2018 Telephone [facility] [address] [place] [address] Social History Date Tobacco Use Types Packs/Day [...] encounter Miscellaneous Notes * Telephone Encounter - Anastasia Olmstead LPN - 11/12/2018 11:02 AM CDT Pt calling asking about the process of loading Tikosyn? I have advised we have r outed a question to [facility]MR and as soon as we hear back from him we will call pt leonardo k. documented in this encounter Plan of Treatment Not on filedocumented as of this encounter Visit Diagnoses Not on filedocumented in this encounter
--- OUTSIDE RECORDS SUMMARY | 2019-08-31 20:43 | XMS REPORT | Encounter Summary ---
Author Author [facility] Organization [facility] Address Unknown Phone Unavailable Care Team Providers Care Certified Nurse Aide Name Role Phone Yulissa Zapata MD PCP Reason for Visit * Auth/Cert Referred By Contact Referred To Contact Status Reason Specialty Diagnoses / Procedures Diagnoses Dysphagia, unspecified type Dysphagia, unspecified type [R13.10] P rocedures OR ESOPHAGEAL MOTILITY STUDY W/INTERP&RPT OR ESOPHAGOGASTRODUOD ENOSCOPY TRANSORAL DIAGNOSTIC OR ESOPHAGOGASTRODUOD ENOSCOPY US SCOPE W/ADJ STRXRS EGD ESOPHAGOGASTRODUOD ENOSCOPY WITH LIMITED ENDOSCOPIC ULTRASOUND EXAMINATION - FLEXIBLE Encounter Details Care Team Description Date Type [place] [address] [place] [address] [phone] ESOPHAGEAL MOTILITY STUDY 08/28/[address] [address] Social History Date Tobacco Use Types Packs/Day [...] or suspected to have Coronavirus / COVID-19? documented as of this encounter Last Filed [...] 08/28/2019 10:38 AM CDT Body Mass Index documented in this encounter Discharge Instructions * Discharge Instr - Education* Lorie Mcclure, ZULLY - 08/28/2019 1:43 PM CDT EGD/Upper EUS/ERCP/Antegrade Enteroscopy Post Upper Endoscopy Instructions -You may have a sore throat after the procedure for 2-3 days. Try sucrets or lo zenges to help ease the pain. If it continues please contact us. -If you feel feverish, have a temperature of 101 degrees or higher, persistent n ausea and vomiting, abdominal pain or dark stools; please notify your nurse or G I physician. -You may have abdominal cramping following the procedure this can be relieved by belching or passing air. -If you have redness or swelling at the IV site, place a warm, wet washcloth ove r the affected areas for 15 minutes, 3-4 times a day until the redness subsides. If symptoms continue for 2-3 days, contact your regular physician. - If you have bleeding from your mouth, over 2 tablespoons and increasing, pleas e notify your physician. A small amount of bleeding is normal if a biopsy or po lyps were taken. If you are vomiting blood you need to seek immediate medical a ttention. - You may resume all your routine medications, if medications need to be held yo ur physician and/or nurse will notify you post procedure. SPECIFIC INSTRUCTIONS INPATIENTS: Ask for help when you get up in your room, as you may still be drowsy from your sedation. OUTPATIENTS: A. Because of sedation and lack of coordination, FOR THE NEXT 24 HOURS, DO NOT: 1. Operate any motorized vehicle - this includes driving. 2. Sign any legal documents or conduct important business matters. 3. Use any dangerous machinery (chain saw, lawnmower, etc.). 4. Drink any alcoholic beverages. Should you have any questions or concerns after your procedure please call M-F 8am-5:00 pm. After 5:00 pm, holidays or weekends call [phone] a nd ask for the GI Doctor bilingual receptionist. documented in this encounter Medications at Time of Discharge Start Date End Date Medication Sig Dispensed Refills biotin 1 mg cap Take 10,000 0 mcg by mouth. 11/24/2018 carvediloL (COREG) 25 mg Take 25 mg by 0 tablet mouth. 07/17/2019 07/16/2020 dilTIAZem CD (CARDIZEM Take 120 mg 0 CD) 120 mg capsule by mouth. 07/09/2019 dofetilide (TIKOSYN) 125 Take 125 mcg 0 mcg capsule by mouth every 12 hours. 06/05/[address] (NEXIUM) 0 40 mg capsule 01/08/2014 furosemide (LASIX) 40 mg Take 40 mg by 0 tablet mouth daily as needed. 07/27/2019 PARoxetine (PAXIL) 10 mg 0 tablet 01/08/2014 potassium chloride Take 10 mEq 0 (KLOR-CON) 10 mEq tablet by mouth. 12/19/2018 12/19/2019 warfarin (COUMADIN) 1 mg Take 1.5 mg 0 tablet by mouth. documented as of this encounter Progress Notes * Jenae Aguirre RN - 08/28/2019 9:20 AM CDT [facility] Esophageal Manometry 08/28/2019 Pau Mccabe Attending Physician: Cha Chief Complaint: Dysphagia, Chest Pain, Heartburn, Reflux, or Other?dysphagia Medical History: Medical History: Diagnosis Date A-fib (HCC) Surgical History: Surgical History: Procedure Laterality Date HX CHOLECYSTECTOMY Medications: No current facility-administered medications for this encounter. Focused History: Dysphagia:Yes Solids? Yes Liquids? Yes Location: Back of throat? Yes Mid or lower chest? Yes Frequency: Daily? Yes Weekly? No Other? Does Temperature Matter? Yes - Cold is more difficult to swallow Odynophagia? No Chest Pain? No Severity: Scale 1-10: Type: Burning, Pressure, Tightness, Sharp, Dull, or Other: Pain Factors: Heartburn: Yes Duration (Months / Years): 6 months Frequency (Daily, Weekly, Monthly): four times a week Eckardt Score: 3 Score Wt Loss (kg) Dysphagia Retrosternal Pain Regurgitation 0 None None None None 1 <5 Occasional Occasional Occasional 2 5-10 Daily Daily Daily 3 >10 Each Meal Each Meal Each Meal Gastroparesis: No Chronic / Frequent Cough: No Regurgitation of food: Yes Nausea: No Vomiting: Yes Abdominal Pain: No Weight Loss: No Asthma / Wheezing: No Diabetes: No Heart Disease: Yes Stroke: No Cancer: No Parkinson's: No Raynaud's: No Parotiditis: No Mumps: Yes Tonsillectomy: Yes Broken Nose: No Bitter / Acid taste at night: Yes Barium Swallow: No Motility Study: Yes Endoscopy: Yes documented in this encounter H&P Notes * Ford Mclain MD - 08/28/2019 1:09 PM CDT Pre Procedure History and Physical/Sedation Plan Name:Pau Mccabe :1950 Age: 69 y.o. Date of Service: 08/28/2019 Date of Procedure: 08/28/2019 Planned Procedure(s): GI: EGD and EUS Sedation/Medication Plan: MAC (Monitored Anesthesia Care) Discussion/Reviews: Physician has discussed risks and alternatives of this type of sedation and above planned procedures with patient Chief Complaint: Dysphagia, rule out achalasia History of Present Illness: Pau Mccabe is a 69 y.o. female as above Medical History: Diagnosis Date A-fib (HCC) Surgical History: Procedure Laterality Date HX CHOLECYSTECTOMY Pertinent medical/surgical history reviewed Pertinent family history reviewed Social History Tobacco Use Smoking status: Never Smoker Smokeless tobacco: Never Used Substance Use Topics Alcohol use: Yes Drug use: Not on file Social History Substance and Sexual Activity Drug Use Not on file Allergies: Patient has no known allergies. Medications Current Facility-Administered Medications Medication lactated ringers infusion Facility-Administered Medications Ordered in Other Encounters Medication propofol (DIPRIVAN) injection Review of Systems: All other systems reviewed and are negative. Physical Exam: General: Not in acute distress Lungs: breathing comfortably. Chest wall: No tenderness or deformity. Heart: Regular rate and rhythm Abdomen: soft, non distended,non tender. Extremities: No edema Airway: per anesthesia Anesthesia Classification: Per Anesthesia NPO Status: Acceptable Status: Not Lab/Radiology/Other Diagnostic Tests Labs: 24-hour labs: No results found for this visit on 08/28/19 (from the past 24 hour(s)). Ford Mclain MD Pager documented in this encounter Plan of Treatment Not on filedocumented as of this encounter Procedures Comments Procedure Name Priority Date/Time Associated Diag nosis HC LVL IV SRG PTH, GROSS Routine 08/28/2019 Dysph agia, unspecified & MICRO 1:06 PM CDT type ENDOSCOPIC ULTRASOUND 08/28/2019 REPORT 12:13 PM CDT ESOPHAGEAL MOTILITY STUDY 08/28/2019 Dysphagia, unspecified 9:28 AM CDT type Special Needs Pre call message left for patient regarding esophageal manometry scheduled on 08/28/19 @ 0945. [facility] 1st Call List / Next 2 to 3 Wks or so TELEMETRY STRIPS-SCAN 08/28/2019 12:00 AM CDT documented in this encounter Results * SURGICAL PATHOLOGY (08/28/2019 1:06 PM CDT) PATHOLOGY [email or web address] [email or web address] Department of Pathology and Laboratory Medicine [address] [place] [id number] Surgical Pathology Office: [phone] SURGICAL PATHOLOGY REPORT NAME: PAU MCCABE SURG PATH #: [id number] MR #: [id number] SPECIMEN CLASS: SR BILLING #: [id number] ALT ID #: LOCATION: [facility] DATE OF PROCEDURE: 08/28/2019 AGE: 69 SEX: [...] Performing Organization Address City/State/Zipcode Ph one Number [facility] [address] [place] [address] * ENDOSCOPIC ULTRASOUND REPORT (08/28/2019 12:13 PM CDT) Provation Patient Name: Estelle MAC OTHER Report Procedure Date: 08/28/2019 RESULTS 12:13 PM CSN: [id number] Date of : 1950 Gender: Female Attending Physician: Damon Gallegos MD Procedure: Upper EUS Indications: Dysphagia Providers: Damon Gallegos MD (Doctor), Ford Mclain MD (Fellow), Rylan Sal RN (Nurse), Jori Thomas Director Software Quality Assurance (Director Software Quality Assurance) Referring Physician: Yulissa Zapata Medications: Monitored Anesthesia [...] 58 seconds Procedure Code(s): --- Professional --- 33830, Esophagogastroduodenoscopy, flexible, transoral; with endoscopic ultrasound examination limited to the esophagus, stomach or duodenum, and adjacent structures 05549, Esophagogastroduodenoscopy, flexible, transoral; with biopsy, single or multiple CPT copyright 2019 [employer] [place] [employer]. All rights reserved. The codes documented in this report are preliminary and upon dye mixer review may be revised to meet current [...] Dysphagia, unspecified type documented in this encounter Administered Medications Action Date Dose Rate Site Medication Order MAR Action 08/28/2019 11:01 AM CDT 1,000 mL 20 mL/hr lactated ringers infusion Given - New 1,000 mL, 1,000 mL, Intravenous, at 20 Bag mL/hr, CONTINUOUS, Starting Sat08/28/19 at 1100, Until Sat08/28/19 at 1629 08/28/2019 9:29 AM CDT 3 mL lidocaine (XYLOCAINE) 2 % topical gel Given INTRA-PROCEDURE MED, Starting Sat08/28/19 at 0929, Until Sat08/28/19 at 1021, Intra-op documented in this encounter
--- OUTSIDE RECORDS SUMMARY | 2019-08-31 20:43 | XMS REPORT | Encounter Summary ---
Author Author [facility] Organization [facility] Address Unknown Phone Unavailable Care Team Providers Care Latex Thread Machine Operator Name Role Phone PCP Unavailable Reason for Visit * Reason Comments Follow-up Encounter Details Care Team Description Date Type Department Anastasia Olmstead LPN Follow-up 11/12/2018 Telephone [facility] [address] [place] [address] Social History Date Tobacco Use Types Packs/Day [...] Telephone Encounter - Anastasia Olmstead LPN - 11/18/2018 2:49 PM CDT I have spoke with pt and she is agreeable to [facility] on 11/20. I have spoke with the Bed coordinators and they have a bed available also. [facility] will be 11/20 with 8am a rrival time. I have spoke with Madeline and she will call pt back and send email. * Telephone Encounter - Lissett Flower RN - 11/17/2018 11:11 AM CDT Received a phone call from Madeline, with [facility] scheduling at this time, stating they are unable to do the [facility] on 11/[address] [facility]. She does have an opening on 11/20 at [facility] location - [facility] to be done as outpatient. Attempted to call the patient but unable to reach her. Left a detailed message for her with the information a deb asked she call the EP Nurse line to discuss scheduling this. Lissett Flower, 11/17/2018 11:12 AM * Telephone Encounter - Tamica Correa RN - 11/12/2018 4:22 PM CDT Called patient regarding cost of Tikosyn to confirm it will be affordable. Stat ed they have met their deductible and the out of pocket cost will be $100/month. Discussed that it could be higher after first of the year when they are working to meet their deductible. Stated that "we have plenty of money so the cost is n ot an issues for us if we could just feel better". Admission order will be entered./cstowe * Telephone Encounter - Anastasia Olmstead LPN - 11/12/2018 11:34 AM CDT Pt calling asking about proceeding with the TIkosyn admit. We will proceed with the [facility] and then the Tikosyn admit. I have also sent an email to precerts, round evert and [facility] reg scheduling documented in this encounter Plan of Treatment Not on filedocumented as of this encounter Visit Diagnoses Not on filedocumented in this encounter
--- OUTSIDE RECORDS SUMMARY | 2019-08-31 20:43 | XMS REPORT | Encounter Summary ---
Author Author [facility] Organization [facility] Address Unknown Phone Unavailable Care Team Providers Care Head Bellhop Captain Name Role Phone Yulissa Zapata MD PCP Reason for Visit * Auth/Cert Referred By Contact Referred To Contact Status Reason Specialty Diagnoses / Procedures Diagnoses Dysphagia, unspecified type Dysphagia, unspecified type [R13.10] P rocedures IN ESOPHAGEAL MOTILITY STUDY W/INTERP&RPT IN ESOPHAGOGASTRODUOD ENOSCOPY TRANSORAL DIAGNOSTIC IN ESOPHAGOGASTRODUOD ENOSCOPY US SCOPE W/ADJ STRXRS EGD ESOPHAGOGASTRODUOD ENOSCOPY WITH LIMITED ENDOSCOPIC ULTRASOUND EXAMINATION - FLEXIBLE Encounter Details Care Team Description Date Type Department Damon Gallegos MD [address] Ortho/Med [place] [address] [place] [address] EGD 08/28/2019 Surgery [facility] [address] [place], [place] [id number] Social History Date Tobacco Use Types Packs/Day [...] Instructions * Discharge Instr - Education* Lorie Mcclure RN - 08/28/2019 1:43 PM CDT EGD/Upper EUS/ERCP/Antegrade [...] After 5:00 pm, holidays or weekends call [phone] a nd ask for the GI Doctor senior pensions administrator. documented in this encounter Medications at Time [...] RN - 08/28/2019 9:20 AM CDT [facility] Endoscopy/Motility Center Esophageal Manometry 08/28/2019 Pau [...] ENDOSCOPIC ULTRASOUND 08/28/2019 REPORT 12:13 PM CDT TELEMETRY STRIPS-SCAN 08/28/2019 12:00 AM CDT documented in this encounter Results * SURGICAL PATHOLOGY (08/28/2019 1:06 PM CDT) PATHOLOGY [facility] [email or web address] Department of Pathology and Laboratory Medicine [address] [place] [address] Surgical Pathology Office: [phone] SURGICAL PATHOLOGY REPORT NAME: PAU MCCABE SURG PATH #: [id number] MR #: [id number] SPECIMEN CLASS: SR BILLING #: [id number] ALT ID #: LOCATION: [facility] DATE OF PROCEDURE: 08/28/2019 AGE: 69 SEX: [...] Esophagus Tissue - Esophagus Performing Organization Address City/State/[facility] Ph one Number [facility] [address] [place] [address] * ENDOSCOPIC ULTRASOUND REPORT (08/28/2019 12:13 PM CDT) Provation Patient Name: Estelle MAC OTHER Report Procedure Date: 08/28/2019 RESULTS 12:13 PM CSN: [id number] Date of : 1950 Gender: Female Attending Physician: Damon Gallegos MD Procedure: Upper EUS Indications: Dysphagia Providers: Damon Gallegos MD (Doctor), Ford Mclain MD (Fellow), Rylan Sal RN (Nurse), Jori Thomas Recreation Activities Coordinator (Recreation Activities Coordinator) Referring Physician: Yulissa Zapata Medications: Monitored Anesthesia [...] 58 seconds Procedure Code(s): --- Professional --- 20348, Esophagogastroduodenoscopy, flexible, transoral; with endoscopic ultrasound examination limited to the esophagus, stomach or duodenum, and adjacent structures 49086, Esophagogastroduodenoscopy, flexible, transoral; with biopsy, single or multiple CPT copyright 2019 [employer]. All rights reserved. The codes documented in this report are preliminary and upon mechanical piping designer review may be revised to meet current [...] Sat08/28/19 at 1100, Until Sat08/28/19 at 1629 documented in this encounter
--- OUTSIDE RECORDS SUMMARY | 2019-08-31 20:43 | XMS REPORT | Encounter Summary ---
Author Author [facility] Organization [facility] Address Unknown Phone Unavailable Care Team Providers Care Bee Worker Name Role Phone Yulissa Zapata MD PCP Encounter Details Care Team Description Date Type Department 08/28/2019 Travel Social History Date Tobacco Use Types Packs/Day [...] / COVID-19? documented as of this encounter Plan of Treatment Not on filedocumented as of this encounter Visit Diagnoses Not on filedocumented in this encounter
--- OUTSIDE RECORDS SUMMARY | 2019-08-31 20:43 | XMS REPORT | Encounter Summary ---
Author Author [facility] Organization [facility] Address Unknown Phone Unavailable Care Team Providers Care Journalist Name Role Phone Yulissa Zapata MD PCP Encounter Details Care Team Description Date Type Department Enzo Jay MD [address] [address] [phone] Lilliam Good CRNA [address] [address] [phone] 08/28/2019 Anesthesia [facility] [address] [place] [address] Anesthesia Record Responsible Anesthesiologist Anesthesia Start Time Anesthesi a Stop Time Procedure Name Enzo Jay MD 08/28/19 1257 08/28/19 1329 EGD (N/A ) Date Time Event Comment 1034 AN Equip Check 2019 1149 1255 Out of Pre Procedure 1257 In Room 1257 Anes Start 1257 An Start Data 1257 Start Supplemental O2 1302 Anesthesia Ready 1303 Proc Start 1326 an stop data 1329 Handoff to RN I completed my SBAR handoff to the receiving nurse. 1329 An Stop Meds Name Total propofol (DIPRIVAN) infusion 265.89 mg propofol (DIPRIVAN) 200 mg/ 20 mL 200 mg injection (VIAL) * Name O2 N2O Inspired N2O * No blood administrations on file. Removal Type Details Placement 08/28/19 1430 by Lorie Mcclure RN Peripheral 08/28/19; 1059; RN; R; Distal; Forearm; 08/28/19 1059 by Ren IV 20 G; No; N/A; 1; 08/28/19; 1430 Lulu freeman RN documented in this encounter Social History Date [...] / COVID-19? documented as of this encounter OR Notes * Anesthesia Postprocedure Evaluation - Enzo Jay MD - 08/28/2019 2:04 PM CDT Post-Anesthesia Evaluation Name: Brynn Mccabe : 1950 Age: 69 y.o. Sex: female Procedure Date: 08/28/2019 Procedure(s): EGD ESOPHAGOGASTRODUODENOSCOPY WITH LIMITED ENDOSCOPIC ULTRASOUND EXAMINATION - FLEX IBLE Surgeon: Surgeon(s): Ford Mclain MD Rastogi, Amit, MD Post-Anesthesia Vitals BP: 126/69 (08/27 1355) Temp: 36.5 C (97.7 F) (08/27 1330) Pulse: 92 (08/27 1355) Respirations: 22 PER MINUTE (08/27 1355) SpO2: 98 % (08/27 1355) SpO2 Pulse: 92 (08/27 1355) Vitals Value Taken Time BP 126/69 08/28/2019 1:55 PM Temp 36.5 C (97.7 F) 08/28/2019 1:30 PM Pulse 92 08/28/2019 1:55 PM Respirations 22 PER MINUTE 08/28/2019 1:55 PM SpO2 98 % 08/28/2019 1:55 PM Post Anesthesia Evaluation Note Evaluation location: pre/post Patient participation: recovered; patient participated in evaluation Level of consciousness: alert Pain score: 0 Pain management: adequate Hydration: normovolemia Temperature: 36.0C - 38.4C Airway patency: adequate Perioperative Events Post-op nausea and vomiting: no PONV Postoperative Status Cardiovascular status: hemodynamically stable Respiratory status: spontaneous ventilation Perioperative Events Perioperative Event: No Emergency Case Activation: No * Anesthesia Preprocedure Evaluation - Enzo Jay MD - 08/28/2019 9:30 AM CDT Anesthesia Pre-Procedure Evaluation Name: Brynn Mccabe : 1950 Age: 69 y.o. Sex: female Procedure Info: Procedure Information Date/Time: 08/28/19 1200 Procedures: EGD (N/A ) ESOPHAGOGASTRODUODENOSCOPY WITH LIMITED ENDOSCOPIC ULTRASOUND EXAMINATION - FLEXIBLE (N/A ) Location: ENDO 2 / ENDO/GI Surgeon: Damon Gallegos MD Physical Assessment Vital Signs (last filed in past 24 hours): Height: 165.1 cm (65") (08/27 1038) Weight: 95.3 kg (210 lb) (08/27 1038) 123/99 107 23 96% Patient History No Known Allergies Current Medications Medication Directions biotin 1 mg cap Take 10,000 mcg by mouth. carvediloL (COREG) 25 mg tablet Take 25 mg by mouth. dilTIAZem CD (CARDIZEM CD) 120 mg capsule Take 120 mg by mouth. dofetilide (TIKOSYN) 125 mcg capsule Take 125 mcg by mouth every [address] (NEXIUM) 40 mg capsule furosemide (LASIX) 40 mg tablet Take 40 mg by mouth daily as needed. PARoxetine (PAXIL) 10 mg tablet potassium chloride (KLOR-CON) 10 mEq tablet Take 10 mEq by mouth. warfarin (COUMADIN) 1 mg tablet Take 1.5 mg by mouth. Review of Systems/Medical History Patient summary reviewed PONV Screening: Female gender and Non-smoker No history of anesthetic complications No family history of anesthetic complications Airway - negative Pulmonary - negative Cardiovascular Beta Davina therapy: Yes Beta blockers within 24 hours: Yes Dysrhythmias; atrial fibrillation GI/Hepatic/Renal GERD, poorly controlled Nausea Vomiting Dysphagia, choking- being worked up for achelasia. Neuro/Psych - negative Musculoskeletal - negative Endocrine/Other - negative Constitution - negative Physical Exam Airway Findings Mallampati: III TM distance: <3 FB Neck ROM: full Mouth opening: good Airway patency: adequate Dental Findings: Comments: Natural teeth in good condition. Cardiovascular Findings: Rhythm: irregular Rate: abnormal Pulmonary Findings: Breath sounds clear to auscultation. Abdominal Findings: Abdominal exam deferred Neurological Findings: Alert and oriented x 3 Constitutional findings: Negative Diagnostic Tests Hematology: No results found for: HGB, HCT, PLTCT, WBC, NEUT, ANC, LYMPH, ALC, A BSLYMPHCT, ESTEFANI, AMC, EOSA, ABC, BASOPHILS, MCV, MCH, MCHC, MPV, RDW General Chemistry: No results found for: NA, K, CL, CO2, GAP, BUN, CR, GLU, CA, KETONES, ALBUMIN, LACTIC, OBSCA, MG, TOTBILI, TOTBILCB, PO4 Coagulation: No results found for: PT, PTT, INR Anesthesia Plan ASA score: 3 Plan: MAC Induction method: intravenous NPO status: acceptable Informed Consent Anesthetic plan and risks discussed with patient. Use of blood products discussed with patient Blood Consent: consented Plan discussed with: anesthesiologist. Comments: (Had a swallow study this AM and vomited most of it per swallow study RN.) documented in this encounter Plan of Treatment Not on filedocumented as of this encounter Visit Diagnoses Not on filedocumented in this encounter Administered Medications Action Date Dose Rate Site Medication Order MAR Action 08/28/2019 1:09 PM CDT 130 mcg/kg/min 74.3 mL/hr propofol (DIPRIVAN) infusion Dose/Rate 20 mL, Intravenous, INTRA-PROCEDURE Change MED(CONT), Starting Sat08/28/19 at 1302 , Until Sat08/28/19 at 1329, Anesthesia Intra-op 120 mcg/kg/min 68.6 mL/hr Given - New Bag 08/28/2019 1:02 PM CDT 08/28/2019 1:20 PM CDT 50 mg propofol (DIPRIVAN) injection Given INTRA-PROCEDURE MED, Starting Sat08/28/19 at 1300, Until Sat08/28/19 at 1329, Anesthesia Intra-op 50 mg Given 08/28/2019 1:13 PM CDT 20 mg Given 08/28/2019 1:02 PM CDT documented in this encounter
--- OUTSIDE RECORDS SUMMARY | 2019-08-31 20:44 | XMS REPORT | Encounter Summary ---
Author Author [facility] Organization [facility] Address Unknown Phone Unavailable Care Team Providers Care Produce Inspector Name Role Phone Yulissa Zapata MD PCP Encounter Details Care Team Description Date Type Department Damon Gallegos MD [address] [facility] [address]vl [address] [place], [place] [id number] Dysphagia, unspecified type (Primary Dx) 07/30/2019 Prep for Case [facility] [address] [place] [phone] Social History Date Tobacco Use Types Packs/Day Years Used Never Smoker Smokeless Tobacco: Never Used Drinks/Week oz/Week Comments Alcohol Use Yes Sex Assigned at Date Recorded Female Industry Job Start Date Occupation Not on file Not on file Not on file Travel End Travel History Travel Start No recent travel history available. documented as of this encounter Plan of Treatment Date/Time Name Type Priority Associated Diag noses 08/24/2019 COVID-19 (SARS-COV-2) PCR Microbiology Routine Dysp hagia, unspecified type Order Schedule Name Type Priority Associated Diag noses Expected: 08/13/2019 (Approximate), Expi res: 07/29/2020 COVID-19 (SARS-COV-2) PCR Microbiology Routine Dysp hagia, unspecified type documented as of this encounter Visit Diagnoses Diagnosis Dysphagia, unspecified type documented in this encounter
--- OUTSIDE RECORDS SUMMARY | 2019-08-31 20:44 | XMS REPORT | Encounter Summary ---
Author Author [facility] Organization [facility] Address Unknown Phone Unavailable Care Team Providers Care Retail Administrative Assistant Name Role Phone Yulissa Zapata MD PCP Encounter Details Care Team Description Date Type Department Damon Gallegos MD 1999 [facility] Lvl 2B [place], [place] [phone] 05/06/2019 Documentation [facility] [address] [place] [phone] Social History Date Tobacco Use Types Packs/Day Years Used Never Assessed Sex Assigned at Date Recorded Female Industry Job Start Date Occupation Not on file Not on file Not on file Travel End Travel History Travel Start No recent travel history available. documented as of this encounter Plan of Treatment Not on filedocumented as of this encounter Visit Diagnoses Not on filedocumented in this encounter
--- OUTSIDE RECORDS SUMMARY | 2019-08-31 20:44 | XMS REPORT | Continuity of Care Document ---
Author Organization Unknown Address Unknown Phone Unavailable Allergies Active Description Code Type Severity Reaction Onset Reported/Identified Relationship to Patient Clinical Status Yes No Known Drug Allergies [id number] Miscellaneous Allergy Moderate N/A Yes No Known Drug Allergy Drug Allergy Unknown N/A 09/07/2015 Medications Medication Packaging Start Date St op Date Route Dosage Sig PARoxetine 10 mg tablet Unsp ecified 09/07/2015 10 mg take 1 (one) Tablet by Oral route daily esomeprazole magnesium 20 mg capsule,delayed release Unspecified 09/07/2015 20 mg take 1 (one) by Oral route d aily warfarin 2.5 mg tablet Unspe cified 09/07/2015 2.5 mg take 1 (one) Tablet by Oral route daily sotalol 80 mg tablet Unspeci fied 09/07/2015 80 mg take 1 (one) Tablet by Oral route daily enalapril maleate 20 mg tablet Unspecified 09/07/2015 20 mg take 1 (one) Tablet by Oral route daily amLODIPine 5 mg tablet Unspe cified 09/07/2015 5 mg take 1 (one) Tablet by Oral route daily Centrum Silver Women 8 mg ir on-400 mcg-300 mcg tablet Unspecified 09/07/2015 8 mg iron-400 mcg-300 mcg 1 (one) by Oral route daily ONDANSETRON 2MG/1ML SDV 10/11/2015 4 PRN& DEXAMETHASONE 10 MG VL 10/11/2015 10/11/2015 4 X1& MIDAZOLAM 1 MG/ML FTV 2ML 10/11/2015 10/11/2015 2 X1& HYDROMORPHONE 1 MG/ML 10/11/2015 0.5 PRN& HYDROCODONE/APAP 5/325MG 100UD 10/11/2015 2 PRNQ4H& METOCLOPRAM 10 MG/2ML FTV 10/11/2015 10 PRN& OXYCODONE/APAP 5/325 MG TAB 10/11/2015 2 PRNQ4H& Problems Date Dx Coded Attending Type Code Diagnosis Diagnosed By 10/17/2011 309.28 AD ADJ D/O W ANX DEP MOOD 10/17/2011 309.28 AD ADJ D/O W ANX DEP MOOD 10/17/2011 309.28 AD ADJ D/O W ANX DEP MOOD 10/17/2011 309.28 AD ADJ D/O W ANX DEP MOOD 10/17/2011 [facility], LIANET R 309.28 AD ADJ D/O W ANX DEP MOOD 10/17/2011 [facility], LIANET R 309.28 AD ADJ D/O W ANX DEP MOOD 10/17/2011 [facility], LIANET R 309.28 AD ADJ D/O W ANX DEP MOOD 10/17/2011 [facility], LIANET R 309.28 AD ADJ D/O W ANX DEP MOOD 09/22/2015 Rush, Nia Jeannette I10 Essential (primary) hypertension Sherri, The rese Jeannette 09/22/2015 Sherri, Nia Jeannette I48.91 Unspecified atrial fibrillation Sherri, Ther sai Jeannette 09/22/2015 Rush, Nia Jeannette N63 Unspecified lump in breast Sherri, Nia E luis 09/22/2015 Rush, Nia Jeannette Z79.01 retirement (current) use of anticoagulants Cu sick, Nia Jeannette 09/23/2015 Sherri, Nia Jeannette I10 Essential (primary) hypertension Rush, The rese Jeannette 09/23/2015 Rush, Nia Jeannette I48.91 Unspecified atrial fibrillation Rush, Ther sai Jeannette 09/23/2015 Sherri, Nia Jeannette N63 Unspecified lump in breast Sherri, Nia E luis 09/23/2015 Rush, Nia Jeannette 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 Cu sick, Nia Jeannette 12/02/2015 Rush, Nia Jeannette 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 Rush, Nia Murillo shayy 12/05/2015 Rush, Nia Jeannette 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 Rush, Nia Lidia shayy Procedures Code Description [place] [address] KATHY V PSYTX 45/50 MIN 02/06/2012 41591 KATHY V PSYTX 45/50 MIN 03/05/2012 33589 PSYT X PT&/FAMILY 45 MINUTES 07/04/2012 44258 PSYT X PT&/FAMILY 45 MINUTES 08/27/2012 46048 PSYT X PT&/FAMILY 45 MINUTES 12/30/2012 72771 PSYT X PT&/FAMILY 45 MINUTES 01/07/2013 70046 PSYT X PT&/FAMILY 45 MINUTES 01/30/2013 61810 PSYT X PT&/FAMILY 45 MINUTES 02/20/2013 64022 Offi ce or other outpatient visit for the evaluation and management of a new patient, which requires Nia Hopkins 09/22/2015 92890 Offi ce or other outpatient visit for the evaluation and management of a new patient, which requires Rush, Nia Machado 10/21/2015 88287 Exci tata of cyst, fibroadenoma, or other benign or malignant tumor aberrant breast tissue, duct cati Sherri, [facility] Jeannette 12/02/2015 45239 Exci tata of cyst, fibroadenoma, or other benign or malignant tumor aberrant breast tissue, duct lesi Sherri, [facility] Jeannette 12/30/2015 Results Test Result Range =>[facility] PATHOLOGY ORDER<= - 10/11/15 09:59 =>[facility] PATHOLOGY ORDER<= LAB Type of Test: ROUTINE Specimen Site: LEFT BREAST BIOPSY Surgical Pathology - 10/13/15 08:58 Document View Attached Image NRG Surgical Pathology - 10/17/15 12:39 Misc. Result, see notes for description See Attached Document NRG Surgical Pathology See Attached Document NRG SOURCE OF SPECIMEN: See Attached Document NRG DESCRIPTIVE DIAGNOSI See Attached Document NRG REPORT RELEASED BY: See Attached Document NRG PATHOLOGIST: See Attached Document NRG CLINICAL INFO: See Attached Document NR G MICROSCOPIC DESCRIPT See Attached Document NRG GROSS DESCRIPTION: See Attached Document NRG PREOP: See Attached Document NRG FROZEN SECTION: See Attached Document N RG CASSETTES: See Attached Document NRG STATISTICS: See Attached Document NRG NUMBER OF IMAGES: See Attached Document NRG DISCLAIMER: See Attached Document NRG Encounters ACCT No. Visit Date/Time Discharge Status Pt. Type Provider Facility Loc./Unit Complaint [id number] 10/11/2015 01:52:00 10/11/2015 11:3 5:00 DIS Outpatient [facility] 001 [id number] 12/02/2015 12:47:03 016 23:59:59 CLS Outpatient Nia Hopkins [id number] 02/20/2013 08:01:00 02/20/2013 23:59: 59 CLS Outpatient YUAN LSCS, LIANET Lambert [id number] 01/29/2013 11:00:00 01/29/2013 23:59: 59 CLS Outpatient YUAN LSCSLIANET [id number] 01/06/2013 10:59:00 01/06/2013 23:59: 59 CLS Outpatient YUAN LSCS, LIANET Lambert [id number] 12/26/2012 12:56:00 12/26/2012 23:59: 59 CLS Outpatient YUAN LSCSLIANET [id number] 03/05/2012 11:50:00 03/05/2012 23:59: 59 CLS Outpatient [id number] 02/06/2012 10:55:00 02/06/2012 23:59:5 9 CLS Outpatient [id number] 08/21/2012 10:03:00 Document Registration [id number] 07/04/2012 07:59:00 Document Registration
--- OUTSIDE RECORDS SUMMARY | 2019-08-31 20:44 | XMS REPORT | Encounter Summary ---
Author Author [facility] Organization [facility] Address Unknown Phone Unavailable Care Team Providers Care Account Financial Manager Name Role Phone Yulissa Zapata MD PCP Encounter Details Care Team Description Date Type Department Cecilia Becerril MA Dysphagia, unspecified type 08/27/2019 Orders Only [facility] [address] [place] [phone] Social History Date Tobacco Use Types Packs/Day [...]
--- OUTSIDE RECORDS SUMMARY | 2019-08-31 20:44 | XMS REPORT | Encounter Summary ---
Author Author [facility] Organization [facility] Address Unknown Phone Unavailable Care Team Providers Care Tissue Specialist Name Role Phone Yulissa Zapata MD PCP Encounter Details Care Team Description Date Type Department Damon Gallegos MD 1999 [facility] Pavilion Lvl 2[address] [place] [address] Dysphagia, unspecified type (Primary Dx) 07/30/2019 Prep for Case [facility] [address] [place] [address] Social History Date Tobacco Use Types Packs/Day [...]
--- OUTSIDE RECORDS SUMMARY | 2019-08-31 20:44 | XMS REPORT ---
Author Author Brynn BOLDEN Organization [facility] Address [address] [place] [address] Care Team Providers Care Donkey Ride Operator Name Role Phone YUANGABBYLIANET Unavailable PROBLEMS Type Condition ICD9-CM Code [id number] Code Onset Dates Condition S tatus SNOMED Code Problem Adjustment disorder with mixed anxiety and depressed mood 309.28 Active [id number] ALLERGIES No Information ENCOUNTERS Encounter Location Date Diagnosis [facility] [address] [id number] [address] [place] [phone] Feb, [facility] [address] [id number] [address] [place] [phone] Feb, [facility] [address] [id number] [address] [place] [phone] Jan, [facility] [address] [id number] [address] [place] [phone] Jan, [facility] [address] [id number] [address] [place] [phone] Dec, [facility] [address] [id number] [address] [place] [phone] Dec, [facility] [address] [id number] [address] [place] [phone] Dec, [facility] [address] [id number] [address] [place] [phone] Dec, [facility] [address] [id number] [address] [place] [phone] Aug, [facility] [address] [id number] [address] [place] [phone] Jun, [facility] [address] [id number] [address] [place] [phone] Feb, [facility] [address] [id number] [address] [place] [phone] Feb, [facility] [address] [id number] [address] [place] [phone] Jan, [facility] [address] [facility] [id number] [address] [place] [phone] Jan, [facility] [address] [facility] [id number] [address] [place] [phone] Dec, [facility] [address] [facility] [id number] [address] [place] [phone] Dec, [facility] [address] [facility] [id number] [address] [place] [phone] Oct, [facility] [address] [facility] [id number] [address] [place] [phone] Oct, IMMUNIZATIONS No Known Immunizations SOCIAL HISTORY Never Assessed REASON FOR VISIT PLAN OF CARE VITAL SIGNS MEDICATIONS Unknown Medications RESULTS No Results PROCEDURES Procedure Date Ordered Result Body Site PSYTX PT&/FAMILY 45 MINUTES Jan 29, 2013 INSTRUCTIONS MEDICATIONS ADMINISTERED No Known Medications
--- OUTSIDE RECORDS SUMMARY | 2019-08-31 20:44 | XMS REPORT | Encounter Summary ---
Author Author [facility] Organization [facility] Address Unknown Phone Unavailable Care Team Providers Care Cable Installation Technician Name Role Phone Unverified, Unverified PCP Unavailable Reason for Visit * Reason Comments Referral Dr. Horacio hung Encounter Details Care Team Description Date Type Department Damon Gallegos MD 1999 [facility] Ortho/Med Pavilion Lvl [address] [place] [address] Referral (Dr. Horacio hung) 04/28/2019 Telephone [facility] [address] [place] [address] Social History Date Tobacco Use Types Packs/Day Years Used Never Assessed Sex Assigned at Date Recorded Female Industry Job Start Date Occupation Not on file Not on file Not on file Travel End Travel History Travel Start No recent travel history available. documented as of this encounter Miscellaneous Notes * Telephone Encounter - Corrie Guaman RN - 04/28/2019 3:35 PM TEACHER DRAMA Referral received from Dr. Horacio hung. Reviewed with Dr. El ZAMORA for OV obtained. Appt request edited to reflect scheduling instruction. Reminder set to f/u 05/05/19 to ensure OV scheduled by IM scheduling. HER DRAMA documented in this encounter Plan of Treatment Not on filedocumented as of this encounter Visit Diagnoses Not on filedocumented in this encounter
--- OUTSIDE RECORDS SUMMARY | 2019-08-31 20:44 | XMS REPORT | Encounter Summary ---
Author Author [facility] Organization [facility] Address Unknown Phone Unavailable Care Team Providers Care Cobol Application Developer Name Role Phone Yulissa Zapata MD PCP Reason for Visit * Reason Comments Dysphagia * Consultation (Routine) Referred By Contact Referred To Contact Status Reason Specialty Diagnoses / Procedures Chau Christy MD [address] [facility] [address] [place] [address] [facility] [address] [place] [address] Closed Gastroenterology Encounter Details Care Team Description Date Type Department Damon Gallegos MD [address] [facility]/Med Pavilion Lvl [address] [place] [address] [phone] Adalberto Tinsley MBBS [address] [place] [address] [phone] Dysphagia, unspecified type (Primary Dx) 07/29/2019 Scheduled [facility] [address] [place] [address] Social History Date Tobacco Use Types Packs/Day [...] Signs Reading Time Taken Comments Vital Sign 130/86 07/29/2019 2:45 PM CDT Blood Pressure 100 07/29/2019 2:45 PM CDT Pulse - - Temperature - - Respiratory Rate - - Oxygen Saturation - - Inhaled Oxygen Concentration 90.7 kg (200 lb) 07/29/2019 2:45 PM CDT Weight 165.1 cm (5' 5") 07/29/2019 2:45 PM CDT Height 33.28 07/29/2019 2:45 PM CDT Body Mass Index documented in this encounter Patient Instructions * Patient Instructions* Lissett Tabares RN - 07/29/2019 3:20 PM CDT Hi, you will be scheduled for an EGD and an EUS with Dr. Gallegos. Endoscopy vinicio namita will be contacting you. The prep instructions are listed below. You janiya l also have an esophageal manometry. 2 Weeks Prior: Stop taking phentermine and all other weight loss medications at LEAST 14 days p rior to procedure Anticoagulation/Blood Thinner Medications: If you take any of the following medications, you will need to stop taking for t he recommended numbers of days prior to procedures, as listed below. Please check with your prescribing physician for approval before stopping your b lood thinner and for more instructions. Warfarin (Coumadin) - 7 days prior Pradaxa - 2-5 days prior (depending on kidney function) Xarelto - 1-4 days prior (depending on kidney function) Eliquis - 2-5 days prior (depending on kidney function) Aggrenox - 7 days prior Plavix - 5 days prior Brilinta - 10 days prior *Should you require bridging therapy to Lovenox, these injections may be taken a s usual through the day before your test. Do not give yourself a Lovenox injecti on the morning of the test. The Day Of Your Exam: Do not eat anything after midnight the night before your exam. After this you should have nothing by mouth, this includes GUM or CANDY. -Chewing tobacco must be stopped six (6) hours before your scheduled pro cedure. -You will be sedated for the procedure, so a responsible adult must driv e you home (no Uber, taxis or buses are permitted). If you do not have a driver service technician we will be unable to do the test. -You will be here for 3-4 hours from arrival time. -You will not be able to return to work the same day if you have receive d sedation. PLEASE LET ME KNOW IF YOU HAVE ANY QUESTIONS OR ARE UNABLE TO SCHEDULE. THANK YOU! Lissett Alex RN, BSN [phone] documented in this encounter Progress Notes * Damon Gallegos MD - 07/29/2019 3:20 PM CDT Telehealth Visit Note Date of Service: 07/29/2019 Subjective: Obtained patient's verbal consent to treat them and their agreement to [facility] policy and NPP via this telehealth visit during the Coronavirus Public He alth Emergency Brynn Mccabe is a 69 y.o. female who was seen in GI telehealth clinic for ini tial visit. History of Present Illness Regurgitation/ GERD: She has long standing GERD and takes Alkaselser for it. She takes nexium 40 mg QDAY which is not helping with her heartburn. Dysphagia: Ongoing since Jan 2019. Mainly to solids. She also has chest pain at times with food intake. She has EGD With botox recently and it helped with dysph agia. She has had esophageal dilations in the past and it has helped temporarily . PMH: A.fib. PSH: Hysterectomy. FH: Sister had breast CA, brother had lung CA. Social: She does not smoke tobacco. Review of Systems Constitutional: Negative for chills. HENT: Positive for sore throat and trouble swallowing. Respiratory: Positive for cough and choking. Cardiovascular: Negative for chest pain. Gastrointestinal: Positive for vomiting. Negative for abdominal pain. Endocrine: Negative for polyuria. Genitourinary: Negative for dysuria. Musculoskeletal: Negative for back pain. Neurological: Negative for headaches. Hematological: Negative for adenopathy. Medical History: Diagnosis Date A-fib (HCC) Surgical History: Procedure Laterality Date HX CHOLECYSTECTOMY No family history on file. Social History Socioeconomic History Marital status: Spouse name: Not on file Number of children: Not on file Years of education: Not on file Highest education level: Not on file Occupational History Not on file Tobacco Use Smoking status: Never Smoker Smokeless tobacco: Never Used Substance and Sexual Activity Alcohol use: Yes Drug use: Not on file Sexual activity: Not on file Other Topics Concern Not on file Social History Narrative Not on file Objective: biotin 1 mg cap Take 10,000 mcg [...] mg tablet Take 1.5 mg by mouth. Vitals: 07/29/19 1445 BP: 130/86 Pulse: 100 Weight: 90.7 kg (200 lb) Height: 165.1 cm (65") PainSc: Zero Body mass index is 33.28 kg/m. Physical Exam NOT PERFORMED. Assessment and Plan: Ms. Gastelum is a 69-year-old female who was seen in GI clinic today for [facility] visit: 1. Esophageal dysphagia: Ongoing since Jan 2019. Mainly to solids. She also buckner s chest pain at times with food intake. She has EGD With botox recently and it h elped with dysphagia. She has had esophageal dilations in the past and it has he lped temporarily. She also has regurgitation/ GERD and takes Alkaselser for it. She takes nexium 40 mg QDAY which is not helping with her heartburn. This point we will proceed with EGD to look for structural causes of patient's d ysphagia and also HRM to look for motility disorders. At the same time will perf orm EUS to assess LES thickness. In the meantime I have advised the patient to chew her food well and eat slowly. I educated her on symptoms of food impaction and to visit ER in that case. Patient seen and discussed with Dr. Gallegos. RTC 4 weeks. Adalberto Tinsley MD Gastroenterology and Hepatology [phone] GI staff attestation: The patient and the GI fellow were present in the virtual meeting. I reviewed the case with the GI fellow and agree with assessment and plan as outlined above that I help formulate. 20 minutes spent on this patient's encounter with counseling and coordination of care taking >50% of the visit. documented in this encounter Plan of Treatment Not on filedocumented as of this encounter Visit Diagnoses Diagnosis Dysphagia, unspecified type documented in this encounter
--- OUTSIDE RECORDS SUMMARY | 2019-08-31 20:44 | XMS REPORT | Encounter Summary ---
Author Author [facility] Organization [facility] Address Unknown Phone Unavailable Care Team Providers Care Insole Tacker Name Role Phone Yulissa Zapata MD PCP Encounter Details Care Team Description Date Type Department Damon Gallegos MD 1999 [facility] Ortho/Med Pavilion Lvl [address] [place] [address] 07/30/2019 Telephone [facility] [address] [place] [address] Social History Date Tobacco Use [...] encounter Miscellaneous Notes * Telephone Encounter - Lissett Tabares RN - 07/30/2019 9:21 AM CDT Prep for cases placed for EGD/EUS and esophageal manometry HRM for dysphagia. P rep instructions sent via my chart. Routing to Suni Almazan RN (scheduling) to dis cuss referral/procedure, review med list, prep, and schedule pt. documented in this encounter Plan of Treatment Not on filedocumented as of this encounter Visit Diagnoses Not on filedocumented in this encounter
--- OUTSIDE RECORDS SUMMARY | 2019-08-31 20:44 | XMS REPORT ---
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 [employer] [facility] [facility] Address [address] [address] Care Team Providers Care Policy Value Calculator Name Role Phone NUBIA CHERRY Unavailable NISHA WEINER Unavailable LIANET BOLDEN Unavailable LIANET BOLDEN Unavailable Allergies The data below is from unstructured sources Allergen Type Severity Reaction Status Last Updated No Known Drug Allergies Active 12/01/06 No Information Medications The data below is from unstructured sources Unknown Medications Unknown Medications No Known Medications No Known Medications Unknown Medications No Known Medications Problems No Information Procedures The data below is from unstructured sourcesNo known history of procedures.No known history of procedures.No known history of procedures.No known history of procedures.No known history of procedures. No Known procedures No Known procedures Immunizations The data below is from unstructured sources No Known Immunizations No Known Immunizations No Known Immunizations Results Test Name Value Interpretation Reference Range Date Time Fa cility (Normalized) (Normalized) (Medline Reference) urinalysis on 2016-07-06 Clarity Nom (U) Clear (no code) 07-06-2016 Not Availa ble 12:55-0400 ([id number]) Color Nom (U) Yellow (no code) 07-06-2016 Not Availabl e 12:55-0400 ([id number]) Epithelial 5-10/HPF (A) 07-06-2016 Not Available cells.squamous 12:55-0400 (15059) LM.HPF #/area (Urine sed) Hemoglobin Test Negative (no code) 07-06-2016 Not Availa ble strip Ql (U) 12:55-0400 ([id number]) Leukocyte Negative (no code) 07-06-2016 Not Available esterase Test 12:55-0400 ([id number]) strip Ql (U) Nitrite Test Negative (no code) 07-06-2016 Not Available strip Ql (U) 12:55-0400 (16606) pH Test strip 7.0 [pH] (no code) 4.6 - 8 [pH] 07-06-2016 Not A vailable (U) 12:55-0400 (50677) Protein mass Negative (no code) 0 - 20 mg/dL 07-06-2016 Not Av ailable conc (U) 12:55-0400 (04171) Specific gravity 1.015 (no code) 07-06-2016 Not Avail able Relative Density 12:55-0400 (46667) (U) Urobilinogen 1 {Bernadette'U}/dL (A) 0.2 - 1 07-06-2016 No t Available Test strip Qn {Brenadette'U}/dL 12:55-0400 (66936) (U) WBC LM.HPF 0-2/HPF (A) 07-06-2016 Not Available #/area (Urine 12:55-0400 (32744) sed) other on 2016-07-06 Anion gap 4 13 (no code) 07-06-2016 Not Available molar conc 12:55-0400 (81621) Bacteria LM Ql 1+ (A) 07-06-2016 Not Availab le (Urine sed) 12:55-0400 (42512) Bilirubin N/A (A) 07-06-2016 Not Available Confirm Ql (U) 12:55-0400 ([id number]) Bilirubin Ql (U) Negative (no code) 07-06-2016 Not Avail able 12:55-0400 (58452) Glucose Test Negative (no code) 07-06-2016 Not Available strip mass conc 12:55-0400 (20378) (U) HCO3 molar conc 30 (no code) 07-06-2016 Not Availa ble (P) 12:55-0400 (91395) Ketones mass Negative (no code) 07-06-2016 Not Available conc (U) 12:55-0400 (69681) Osmolality 287 (no code) 07-06-2016 Not Available Calculated 12:55-0400 (65145) Urine Volume Urine Volume (no code) 07-06-2016 Not Availabl e Sufficient 12:55-0400 (87673) (10mL) Yeast.budding Ql Yeast Present (no code) 07-06-2016 Not Odilia ilable (Urine sed) 12:55-0400 (19429) no information Urine Saved if (A) 07-06-2016 Not Avai lable Culture Needed 12:0 (79924) (48hrs from time of collection) metabolic panel on 2016-07-06 Calcium mass 9.2 mg/dL (no code) 8.5 - 10.2 mg/dL 07-06-2016 No t Available conc 12:550400 (84448) Chloride molar 100 mmol/L (no code) 95 - 106 mmol/L 07-06-2016 Not Available conc 12:550400 (64635) Creatinine mass 0.84 mg/dL (no code) 07-06-2016 Not Availa ble conc 12:550400 (55597) GFR/1.73 sq 67 (no code) 90 - 120 07-06-2016 Not Availa ble M.predicted MDRD mL/min/{1.73_m2} mL/min/{1.73_m2} 12:0400 (58570) vol rate/area Glucose mass 88 mg/dL (no code) 60 - 125 mg/dL 07-06-2016 Not Available conc 12:0400 (15299) Potassium molar 4.2 mmol/L (no code) 3.7 - 5.2 mmol/L 07-06-2016 Not Available conc 12:550400 (22489) Sodium molar 139 mmol/L (no code) 135 - 145 mmol/L 07-06-2016 N ot Available conc 12:0400 (90441) Urea nitrogen 14 mg/dL (no code) 7 - 20 mg/dL 07-06-2016 Not A vailable mass conc 12:550400 (90155) urinalysis on 2016-06-25 Clarity (U) Clear (no code) 06-25-2016 Not Available 16:35-0400 (82351) Color (U) Yellow (no code) 06-25-2016 Not Available 16:35-0400 (62122) Epithelial 5-10/HPF (A) 06-25-2016 Not Available cells.squamous 16:350400 (73379) LM.HPF (Urine sed) [#/Area] Leukocyte Negative (no code) 06-25-2016 Not Available esterase Test 16:35-0400 (17021) strip Ql (U) Protein (U) 1+ (A) 06-25-2016 Not Available [Mass/Vol] 16:35-0400 (87936) RBC LM.HPF 0-2/HPF (A) 06-25-2016 Not Available (Urine sed) 16:35-0400 (15780) [#/Area] Specific gravity >=1.030 (A) 06-25-2016 Not Avail able (U) [Rel 16:35-0400 (10145) density] WBC LM.HPF 2-5/HPF (A) 06-25-2016 Not Available (Urine sed) 16:35-0400 (23050) [#/Area] thyroid on 2016-06-25 TSH Qn 1.87 (no code) 06-25-2016 Not Available 16:35-0400 (98055) other on 2016-06-25 Albumin 4.1 (no code) 06-25-2016 Not Available Bromocresol 17:35-0400 (18112) green (BCG) dye binding method mass conc Anion gap 4 17 (H) 06-25-2016 Not Available molar conc 17:35-0400 (70811) Bacteria LM Ql 1+ (A) 06-25-2016 Not Availab le (Urine sed) 16:35-0400 (42436) Bilirubin Ql (U) 2+ (A) 06-25-2016 Not Avail able 16:35-0400 (55510) Casts LM Ql Hyaline (no code) 06-25-2016 Not Available (Urine sed) 16:35-0400 (80032) Cobalamin 274.00 pg/mL (no code) 200 - 900 pg/mL 06-25-2016 Not Available (Vitamin B12) 16:35-0400 (48758) [Mass/Vol] Globulin 3.0 g/dL (no code) 2 - 3.5 g/dL 06-25-2016 Not Avail able Calculated mass 17:35-0400 (61668) conc (S) Glucose Test Negative (no code) 06-25-2016 Not Available strip (U) 16:35-0400 (21521) [Mass/Vol] HCO3 molar conc 26 (no code) 06-25-2016 Not Availa ble (P) 17:35-0400 (58819) Hemoglobin Ql Negative (no code) 06-25-2016 Not Availabl e (U) 16:35-0400 (53173) INR Coag 1.8 (no code) 06-25-2016 Not Available (Platelet poor 16:35-0400 (31969) plasma or blood) [Relative time] Ketones (U) Negative (no code) 06-25-2016 Not Available [Mass/Vol] 16:35-0400 (42356) Mucus Ql (Urine 1+ (A) 06-25-2016 Not Availa ble sed) 16:35-0400 (61953) Nitrite Ql (U) Negative (no code) 06-25-2016 Not Availab le 16:35-0400 (73631) Osmolality 295 (no code) 06-25-2016 Not Available Calculated 17:35-0400 (25339) pH (U) 5.5 [pH] (no code) 4.6 - 8 [pH] 06-25-2016 Not Avail able 16:35-0400 (80115) Urine Volume Urine Volume (no code) 06-25-2016 Not Availabl e Sufficient 16:35-0400 (75156) (10mL) Urobilinogen Qn 1 {Bernadette'U}/dL (A) 06-25-2016 Not A vailable (U) 16:35-0400 (91574) no information Urine Saved if (A) 06-25-2016 Not Avai lable Culture Needed 16:35-0400 (98382) (48hrs from time of collection) metabolic panel on 2016-06-25 ALP enzyme 63 U/L (no code) 44 - 147 U/L 06-25-2016 Not Avai lable act/vol 17:35-0400 (44181) ALT enzyme 29 U/L (no code) 4 - 40 U/L 06-25-2016 Not Availa ble act/vol 17:35-0400 (23813) AST enzyme 29 U/L (no code) 10 - 34 U/L 06-25-2016 Not Avail able act/vol 17:35-0400 (75987) Bilirubin mass 0.8 mg/dL (no code) 0.1 - 1.2 mg/dL 06-25-2016 N ot Available conc 17:35-0400 (30983) Calcium mass 9.1 mg/dL (no code) 8.5 - 10.2 mg/dL 06-25-2016 No t Available conc 17:35-0400 (18964) Chloride molar 102 mmol/L (no code) 95 - 106 mmol/L 06-25-2016 Not Available conc 17:35-0400 (83536) Creatinine mass 1.16 mg/dL (no code) 06-25-2016 Not Availa ble conc 17:350400 (27120) GFR/1.73 sq 46 (L) 90 - 120 06-25-2016 Not Availa ble M.predicted MDRD mL/min/{1.73_m2} mL/min/{1.73_m2} 17:35-0400 (69769) vol rate/area Glucose mass 109 mg/dL (no code) 60 - 125 mg/dL 06-25-2016 Not Available conc 17:350 (78306) Magnesium 2.0 mg/dL (no code) 1.7 - 2.2 mg/dL 06-25-2016 Not Av ailable [Mass/Vol] 16:35-0400 (14298) Potassium molar 3.5 mmol/L (no code) 3.7 - 5.2 mmol/L 06-25-2016 Not Available conc 17:35-0400 (37586) Protein mass 7.1 g/dL (no code) 6.4 - 8.3 g/dL 06-25-2016 Not Available conc 17:35-0400 (63300) Sodium molar 141 mmol/L (no code) 135 - 145 mmol/L 06-25-2016 N ot Available conc 17:350 (78451) Urea nitrogen 24 mg/dL (no code) 7 - 20 mg/dL 06-25-2016 Not A vailable mass conc 17:35-0400 (12586) hematology on 2016-06-25 Basophils Auto 0.0 10*3/uL (no code) 0 - 0.3 10*3/uL 06-25-2016 Not Available #/vol (Bld) 17:35-0400 (39301) Basophils/100 0.80 % (no code) 0.5 - 1 % 06-25-2016 Not Avai lable WBC Auto (Bld) 17:350400 (77690) Eosinophils Auto 0.1 10*3/uL (no code) 0.05 - 0.5 06-25-2016 No t Available #/vol (Bld) 10*3/uL 17:35-0400 (51640) Eosinophils/100 2.4 % (no code) 1 - 4 % 06-25-2016 Not Av ailable WBC Auto (Bld) 17:35-0400 (04655) Erythrocyte 13.1 % (no code) 11.6 - 14.6 % 06-25-2016 Not Av ailable distribution 17:35-0400 (10294) width Auto Ratio (RBC) Hematocrit Auto 40.9 % (no code) 36.1 - 50.3 % 06-25-2016 No t Available Volume Fraction 17:35-0400 (25372) (Bld) Hemoglobin mass 13.8 g/dL (no code) 12.1 - 17.2 g/dL 06-25-2016 Not Available conc (Bld) 17:35-0400 (51101) Lymphocytes Auto 1.17 10*3/uL (no code) 0.9 - 2.9 06-25-2016 No t Available #/vol (Bld) 10*3/uL 17:35-0400 (94969) Lymphocytes/100 23.4 % (no code) 20 - 40 % 06-25-2016 Not Av ailable WBC Auto (Bld) 17:35-0400 (56656) MCH Auto Entitic 33.7 pg (H) 27 - 31 pg 06-25-2016 Not Available mass (RBC) 17:35-0400 (60732) MCHC Auto mass 33.7 g/dL (no code) 32 - 36 g/dL 06-25-2016 Not Available conc (RBC) 17:35-0400 (51602) MCV Auto Entitic 99.8 fL (H) 80 - 100 fL 06-25-2016 Not Available volume (RBC) 17:35-0400 (65714) Monocytes Auto 0.6 10*3/uL (no code) 0.3 - 0.9 06-25-2016 Not A vailable #/vol (Bld) 10*3/uL 17:35-0400 (57539) Monocytes/100 12.4 % (H) 2 - 8 % 06-25-2016 Not Avai lable WBC Auto (Bld) 17:35-0400 (88459) Neutrophils Auto 3.05 10*3/uL (no code) 1.7 - 7 10*3/uL 06-26-19 17 Not Available #/vol (Bld) 17:35-0400 (39369) Neutrophils/100 61.0 % (no code) 40 - 60 % 06-25-2016 Not Av ailable WBC Auto (Bld) 17:35-0400 (94661) Platelet mean 9.7 fL (no code) 7.2 - 11.7 fL 06-25-2016 Not Available volume Auto 17:350400 (30081) Entitic volume (Bld) Platelets Auto 194 10*3/uL (no code) 150 - 450 06-25-2016 Not A vailable #/vol (Bld) 10*3/uL 17:35-0400 (64850) PT Coag (PPP) 21.6 (H) 06-25-2016 Not Availabl e [Time] 16:350400 (74335) RBC Auto #/vol 4.10 10*6/uL (no code) 4.2 - 6.1 06-25-2016 Not Available (Bld) 10*6/uL 17:35-0400 (90681) WBC Auto #/vol 5.00 10*3/uL (no code) 3.5 - 10.5 06-25-2016 Not Available (Bld) 10*3/uL 17:35-0400 (79566) Vital Signs The data below is from unstructured sources Vital Response Date/Time Temperature (Fahrenheit) 98.6 degree s F (97.6 - 99.5) Temperature (Calculated Celsius) 37. 93095 degrees C (36.4 - 37.5) Pulse Rate (adult) 70 bpm (60 - 90) Respiratory Rate 18 bpm (12 - 24) O2 Sat by Pulse Oximetry 98 % (88 - 100) Blood Pressure 168/107 mm Hg Pain Pain Intensity 6 Height (Feet) 5 feet Height (Inches) 5 inches Height (Calculated Centimeters) 165. 599335 cm Weight (Pounds) 200 pounds Weight (Calculated Kilograms) 90.718 475 kilograms Calculated BMI 33.28 Vital Response Date/Time Temperature (Fahrenheit) 97.2 degree s F (97.6 - 99.5) Temperature (Calculated Celsius) 36. 07845 degrees C (36.4 - 37.5) Temperature Source Temporal Pulse Rate (adult) 66 bpm (60 - 90) Respiratory Rate 16 bpm (12 - 24) O2 Sat by Pulse Oximetry 96 % (88 - 100) Blood Pressure 117/75 mm Hg Blood Pressure Mean 89 mm Hg Pain Pain Intensity 5 Height (Feet) 5 feet Height (Inches) 5.00 inches Height (Calculated Centimeters) 165. 068369 cm Weight (Pounds) 215 pounds Weight (Ounces) 2.0 oz Weight (Calculated Grams) 00964.060 gm Weight (Calculated Kilograms) 97.579 060 kilograms Calculated BMI 35.15 Vital Response Date/Time Temperature (Fahrenheit) 98.7 degree s F (97.6 - 99.5) Temperature (Calculated Celsius) 37. 70417 degrees C (36.4 - 37.5) Temperature Source Tympanic Pulse Rate (adult) 96 bpm (60 - 90) Respiratory Rate 20 bpm (12 - 24) O2 Sat by Pulse Oximetry 95 % (88 - 100) Blood Pressure 111/82 mm Hg Pain Pain Intensity 0 Height (Feet) 5 feet Height (Inches) 5.00 inches Height (Calculated Centimeters) 165. 031029 cm Weight (Pounds) 215 pounds Weight (Ounces) 2.0 oz Weight (Calculated Grams) 03292.060 gm Weight (Calculated Kilograms) 97.579 060 kilograms Calculated BMI 35.77 Vital Response Date/Time Temperature (Fahrenheit) 97.0 degree s F (97.6 - 99.5) Temperature (Calculated Celsius) 36. 59786 degrees C (36.4 - 37.5) Temperature Source Tympanic Pulse Rate (adult) 69 bpm (60 - 90) Respiratory Rate 22 bpm (12 - 24) O2 Sat by Pulse Oximetry 93 % (88 - 100) Blood Pressure 129/79 mm Hg Pain Pain Intensity 0 Height (Feet) 5 feet Height (Inches) 5.00 inches Height (Calculated Centimeters) 165. 830292 cm Weight (Pounds) 215 pounds Weight (Ounces) 2.0 oz Weight (Calculated Grams) 45759.060 gm Weight (Calculated Kilograms) 97.579 060 kilograms Calculated BMI 35.77 Interventions No Information Plan of Treatment The data below is from unstructured sources Discharge Date 01/09/14 2:50pm Disposition 30 STILL A PATIENT Instructions/Education Provided Bact erial Pneumonia (DC) Prescriptions See Medications Sectio n Care Plan and Goals call for follow up with pcp in 1-2 weeks. DC as long as pt can maintain sats greater than or equal to 88% with ambulation. Goals No Information Social History No Information Functional Status The data below is from unstructured sources Query Response Date Attila rded Patient Orientation Person Time Situation November 28, 2013 2:01pm Comprehension Ability Understands Co ncepts November 28, 2013 2:01pm Query Response Date Attila rded Patient Orientation Person Place Time Situation Normal For Age 2014 3:35pm Comprehension Ability Understands Co ncepts January 08, 2014 9:00pm Mental Status No Information Encounters Encounter Normalized Encounter Encounter Diagnosis Care Provi [place] Organization Date Type 07-06-2016 Patient encounter no information no name no or ganization name - procedure 07-07-2016 06-25-2016 Patient encounter no information no name no or ganization name - procedure 06-26-2016 Medical Equipment No Information Payers Normalized Payer Value NEGATED no information Medicare Advance Directives Directive Response Recor ded Date/Time Advance Directives No 1:30pm Organ Donor Yes 11/28/13 1:30pm Resuscitation Status Full Code 11/28/13 1:30pm Directive Response Recor ded Date/Time Advance Directives No 9:11am Health Care Power of Knitting Supervisor No 08/18/14 7:55am Organ Donor No 08/18/14 7:55am Resuscitation Status Full Code 10/14/14 9:11am Directive Response Recor ded Date/Time Advance Directives No 7:55am Health Care Power of Knitting Supervisor No 08/18/14 7:55am Organ Donor No 08/18/14 7:55am Resuscitation Status Full Code 08/18/14 7:55am Directive Response Recor ded Date/Time Advance Directives No 5:55pm Health Care Power of Knitting Supervisor No 01/08/14 5:55pm Organ Donor No 01/08/14 5:55pm Resuscitation Status Full Code 01/08/14 5:55pm Discharge Instructions No hospital discharge instructions.No hospital discharge instructions.No hospital discharge instructions.No hospital discharge instructions. Additional Source Comments This clinical document has been generated using W-21 software that has been certified by the Office of the National Coordinator for Health Information Technology (ONC 15.99.04.3023.Diam.31.00.0.628756) and the National Committee for Education Rep (NCQA, as an eMeasure certified technology). FOR RECORDS PERTAINING TO PATIENTS WHO ARE OR HAVE BEEN ENROLLED IN A CHEMICAL D EPENDENCY/SUBSTANCE ABUSE PROGRAM, SOME INFORMATION MAY BE OMITTED. This clinica l summary was aggregated from multiple sources. Caution should be exercised in using it in the provision of clinical care. This summary normalizes information from multiple sources, and as a consequence, information in this document may ma terially change the coding, format and clinical context of patient data. In edi tion, data may be omitted in some cases. CLINICAL DECISIONS SHOULD BE BASED ON T HE PRIMARY CLINICAL RECORDS. [facility]. provides no warranty or guara ntee of the accuracy or completeness of information in this document.The followi ng information is based on time limited clinical information
--- OUTSIDE RECORDS SUMMARY | 2019-08-31 20:44 | XMS REPORT ---
Author Author Brynn BOLDEN Organization [facility] Address [address] [place] [address] Care Team Providers Care Special Events Coordinator Name Role Phone YUANGABBYLIANET Unavailable PROBLEMS Type Condition ICD9-CM Code [id number] Code Onset Dates Condition S tatus SNOMED Code Problem Adjustment disorder with mixed anxiety and depressed mood 309.28 Active 71851644 ALLERGIES No Information ENCOUNTERS Encounter Location Date Diagnosis [facility] [address] [id number] [address] [place] [phone] Feb, [facility] [address] [id number] [address] [place] [phone] Feb, [facility] [address] [id number] [address] [place] [phone] Jan, [facility] [address] [id number] [address] [place] [phone] Jan, [facility] [address] [id number] [address] [place] [phone] Dec, [facility] [address] [id number] [address] [place] [phone] Dec, [facility] [address] [id number] [address] [place] [phone] Dec, [facility] [address] [id number] [address] [place] [phone] Dec, [facility] [address] [id number] [address] [place] [phone] Aug, [facility] [address] [id number] [address] [place] [phone] Jun, [facility] [address] [id number] [address] [place] [phone] Feb, [facility] [address] [id number] [address] [place] [phone] Feb, [facility] [address] [id number] [address] [place] [phone] Jan, [facility] [address] [facility] [id number] [address] [place] [phone] Jan, [facility] [address] [facility] [id number] [address] [place] [phone] Dec, [facility] [address] [facility] [id number] [address] [place] [phone] Dec, [facility] [address] [facility] [id number] [address] [place] [phone] Oct, [facility] [address] [facility] [id number] [address] [place] [phone] Oct, IMMUNIZATIONS No Known Immunizations SOCIAL HISTORY Never Assessed REASON FOR VISIT PLAN OF CARE VITAL SIGNS MEDICATIONS Unknown Medications RESULTS No Results PROCEDURES No Known procedures INSTRUCTIONS MEDICATIONS ADMINISTERED No Known Medications
--- OUTSIDE RECORDS SUMMARY | 2019-08-31 20:44 | XMS REPORT | Encounter Summary ---
Author Author [facility] Organization [facility] Address Unknown Phone Unavailable Care Team Providers Care Freight Shipping Agent Name Role Phone Yulissa Zapata MD PCP Reason for Visit * Auth/Cert Referred By Contact Referred To Contact Status Reason Specialty Diagnoses / Procedures Diagnoses Dysphagia, unspecified type Dysphagia, unspecified type [R13.10] P rocedures FL ESOPHAGEAL MOTILITY STUDY W/INTERP&RPT FL ESOPHAGOGASTRODUOD ENOSCOPY TRANSORAL DIAGNOSTIC FL ESOPHAGOGASTRODUOD ENOSCOPY US SCOPE W/ADJ STRXRS EGD ESOPHAGOGASTRODUOD ENOSCOPY WITH LIMITED ENDOSCOPIC ULTRASOUND EXAMINATION - FLEXIBLE Encounter Details Care Team Description Date Type [place] [address] [place], [place] [id number] Dysphagia, unspecified type 08/28/2019 [facility] [address] [place], [place] [id number] Social History Date Tobacco Use Types Packs/Day [...] or concerns after your procedure please call [phone] M-F 8am-5:00 pm. After 5:00 pm, holidays or weekends call [phone] a nd ask for the GI Doctor advertising consultant. documented in this encounter Medications at Time [...] RN - 08/28/2019 9:20 AM CDT [facility] Esophageal Manometry 08/28/2019 Pau [...] PATHOLOGY (08/28/2019 1:06 PM CDT) PATHOLOGY [email or web address] Department of Pathology and Laboratory Medicine [address] [place] [address] Surgical Pathology Office: [phone] SURGICAL PATHOLOGY REPORT NAME: PAU MCCABE SURG PATH #: [id number] MR #: [id number] SPECIMEN CLASS: SR BILLING #: [id number] ALT ID #: LOCATION: [facility] DATE OF PROCEDURE: 08/28/2019 AGE: 69 SEX: [...] Ph one Number [facility] [address] [place] [address] * ENDOSCOPIC ULTRASOUND REPORT (08/28/2019 12:13 PM CDT) Provation Patient Name: Estelle MAC OTHER Report Procedure Date: 08/28/2019 RESULTS 12:13 PM CSN: [id number] Date of : 1950 Gender: Female Attending Physician: Damon Gallegos MD Procedure: Upper EUS Indications: Dysphagia Providers: Damon Gallegos MD (Doctor), Ford Mclain MD (Fellow), Rylan Sal RN (Nurse), Jori Thomas, Lance Crewmember (Lance Crewmember) Referring Physician: Yulissa Zapata Medications: Monitored Anesthesia [...] 58 seconds Procedure Code(s): --- Professional --- 04970, Esophagogastroduodenoscopy, flexible, transoral; with endoscopic ultrasound examination limited to the esophagus, stomach or duodenum, and adjacent structures 80770, Esophagogastroduodenoscopy, flexible, transoral; with biopsy, single or multiple CPT copyright 2019 [employer]. All rights reserved. The codes documented in this report are preliminary and upon death surveys coder review may be revised to meet current [...]
[2019-08-31] MEDS ORDERED: NS 100 ML (IVPB) BAG IV ONE (20:45)
[2019-08-31] MEDS ORDERED: IOHEXOL 350 MG/ML 100 ML (OMNIPAQUE 350) VIAL IV ONE (20:45)
[2019-08-31] MEDS ORDERED: HOLD METFORMIN - RECEIVED CONTRAST 20 ML VIAL IV SCH (20:45)
[2019-08-31] MEDS ORDERED: hydrALAZINE (APESOLINE) 20 MG/ML VIAL IV ONE (21:15)
[2019-08-31] MEDS ORDERED: diphenhydrAMINE 50 MG/ML INJ (BENADRYL) IV STA (21:35)
[2019-08-31] MEDS ORDERED: methylPREDNISolone 125 MG (Solu-MEDROL) VIAL IV STA (21:35)
[2019-08-31] MEDS ORDERED: diphenhydrAMINE 50 MG/ML INJ (BENADRYL) ONE (21:37)
--- NOTE | 2019-08-31 21:41 | Diagnostic Imaging Report ---
PROCEDURE: CT angiography of the head and CT angiography of the neck with and without contrast, 08/31/2019. TECHNIQUE: Contiguous noncontrast images were obtained from the skull base through the vertex. After intravenous contrast administration, helical CT angiography of the neck was performed. Source data was reformatted into 3D MIP projections. Delayed post contrast acquisition was also obtained. Auto Exposure Controls were utilized during the CT exam to meet ALARA standards for radiation dose reduction. INDICATION: Stroke-like symptoms. FINDINGS: Marked tortuosity of the common carotid arteries seen bilaterally at the thoracic inlet. No occlusion or significant stenosis appreciated. Scattered atherosclerotic disease is seen along the course of both arteries. The common carotid arteries at the bulbs demonstrate atherosclerotic disease and just proximal to the bulbs, as well. Internal carotid arteries within the neck as well as external carotid arteries patent. The vertebral arteries in the neck patent. No dissection or occlusion. The basilar artery and intracerebral vertebral arteries patent. Posterior cerebral arteries patent. Mild narrowing of the distal posterior cerebral artery on the right is noted compared to the left but there is no complete occlusion appreciated, correlate with patient's symptoms. The internal carotid arteries within the brain demonstrate atherosclerotic disease bilaterally but appear to be patent. Middle cerebral arteries and anterior cerebral arteries bilaterally patent and unremarkable. The postcontrast imaging unremarkable for abnormal enhancement. IMPRESSION: 1. Multifocal areas of atherosclerotic disease, as above. Some narrowing of the right posterior cerebral artery distally without complete occlusion. Correlate with patient's symptoms. Remaining vessels, as above. Dictated by: Dictated on workstation # [id number]
[2019-08-31] MEDS ORDERED: DEXAMETHASONE 4 MG/ML SDV (DECADRON) IH ONE (21:45)
[2019-08-31] MEDS ORDERED: RT-ALBUTEROL/IPRATROPIUM 3 ML (DUONEB) VIAL INH ONE (21:45)
[2019-08-31 22:08] LABS: ABG BASE EXCESS 0.4 MMOL/L (-2.5-2.5); ABG OXYGEN SATURATION 78 % (94-100); ABG PCO2 44 MMHG (35-45); ABG PH 7.37 (7.37-7.43); ABG PO2 50 MMHG (79-93); ABG TCO2 26.5 MMOL/L (21.0-31.0); ALLENS TEST POSITIVE; INSPIRED O2 1.5; PATIENT TEMP 36.7; VENTILATOR NO
[2019-08-31] MEDS ORDERED: FUROSEMIDE 40 MG/4 ML INJ (LASIX) IVP ONE (22:15)
[2019-08-31] MEDS ORDERED: ENOXAPARIN 100 MG/1 ML (LOVENOX) SYR SC ONE (22:45)
--- OUTSIDE RECORDS SUMMARY | 2019-08-31 23:29 | XMS REPORT ---
Author Author Inaura scaling machine operator Breather [facility] Inaura [facility] Address [address] [address] Care Team Providers Care Dowel Pin Worker Name Role Phone NUBIA CHERRY Unavailable NISHA [...] (no code) 07-06-2016 Not Availa ble 12:55-0400 (09373) Color Nom (U) Yellow (no code) 07-06-2016 Not Availabl e 12:55-0400 (92465) Epithelial 5-10/HPF (A) 07-06-2016 Not Available cells.squamous 12:55-0400 (71061) LM.HPF #/area (Urine sed) Hemoglobin Test Negative (no code) 07-06-2016 Not Availa ble strip Ql (U) 12:55-0400 (41801) Leukocyte Negative (no code) 07-06-2016 Not Available esterase Test 12:55-0400 (63681) strip Ql (U) Nitrite Test Negative (no code) 07-06-2016 Not Available strip Ql (U) 12:55-0400 (80618) pH Test strip 7.0 [pH] (no code) 4.6 - 8 [pH] 07-06-2016 Not A vailable (U) 12:55-0400 (66477) Protein mass Negative (no code) 0 - 20 mg/dL 07-06-2016 Not Av ailable conc (U) 12:55-0400 (43411) Specific gravity 1.015 (no code) 07-06-2016 Not Avail able Relative Density 12:55-0400 (60977) (U) Urobilinogen 1 {Bernadette'U}/dL (A) 0.2 - 1 07-06-2016 No t Available Test strip Qn {Bernadette'U}/dL 12:55-0400 (66193) (U) WBC LM.HPF 0-2/HPF (A) 07-06-2016 Not Available #/area (Urine 12:55-0400 (43441) sed) other on 2016-07-06 Anion gap 4 13 (no code) 07-06-2016 Not Available molar conc 12:55-0400 (60941) Bacteria LM Ql 1+ (A) 07-06-2016 Not Availab le (Urine sed) 12:55-0400 (86826) Bilirubin N/A (A) 07-06-2016 Not Available Confirm Ql (U) 12:55-0400 (33218) Bilirubin Ql (U) Negative (no code) 07-06-2016 Not Avail able 12:55-0400 (73011) Glucose Test Negative (no code) 07-06-2016 Not Available strip mass conc 12:55-0400 (94502) (U) HCO3 molar conc 30 (no code) 07-06-2016 Not Availa ble (P) 12:55-0400 (93065) Ketones mass Negative (no code) 07-06-2016 Not Available conc (U) 12:55-0400 (00392) Osmolality 287 (no code) 07-06-2016 Not Available Calculated 12:55-0400 (78590) Urine Volume Urine Volume (no code) 07-06-2016 Not Availabl e Sufficient 12:55-0400 (36216) (10mL) Yeast.budding Ql Yeast Present (no code) 07-06-2016 Not Odilia ilable (Urine sed) 12:55-0400 (12609) no information Urine Saved if (A) 07-06-2016 Not Avai lable Culture Needed 12:0 (69073) (48hrs from time of collection) metabolic panel on 2016-07-06 Calcium mass 9.2 mg/dL (no code) 8.5 - 10.2 mg/dL 07-06-2016 No t Available conc 12:550400 (05498) Chloride molar 100 mmol/L (no code) 95 - 106 mmol/L 07-06-2016 Not Available conc 12:550400 (62631) Creatinine mass 0.84 mg/dL (no code) 07-06-2016 Not Availa ble conc 12:550400 (62104) GFR/1.73 sq 67 (no code) 90 - 120 07-06-2016 Not Availa ble M.predicted MDRD mL/min/{1.73_m2} mL/min/{1.73_m2} 12:0400 (85424) vol rate/area Glucose mass 88 mg/dL (no code) 60 - 125 mg/dL 07-06-2016 Not Available conc 12:0400 (74436) Potassium molar 4.2 mmol/L (no code) 3.7 - 5.2 mmol/L 07-06-2016 Not Available conc 12:550400 (49659) Sodium molar 139 mmol/L (no code) 135 - 145 mmol/L 07-06-2016 N ot Available conc 12:0400 (34899) Urea nitrogen 14 mg/dL (no code) 7 - 20 mg/dL 07-06-2016 Not A vailable mass conc 12:550400 (84862) urinalysis on 2016-06-25 Clarity (U) Clear (no code) 06-25-2016 Not Available 16:35-0400 (38590) Color (U) Yellow (no code) 06-25-2016 Not Available 16:35-0400 (02786) Epithelial 5-10/HPF (A) 06-25-2016 Not Available cells.squamous 16:350400 (19217) LM.HPF (Urine sed) [#/Area] Leukocyte Negative (no code) 06-25-2016 Not Available esterase Test 16:35-0400 (79761) strip Ql (U) Protein (U) 1+ (A) 06-25-2016 Not Available [Mass/Vol] 16:35-0400 (43289) RBC LM.HPF 0-2/HPF (A) 06-25-2016 Not Available (Urine sed) 16:35-0400 (02056) [#/Area] Specific gravity >=1.030 (A) 06-25-2016 Not Avail able (U) [Rel 16:35-0400 (52245) density] WBC LM.HPF 2-5/HPF (A) 06-25-2016 Not Available (Urine sed) 16:35-0400 (66439) [#/Area] thyroid on 2016-06-25 TSH Qn 1.87 (no code) 06-25-2016 Not Available 16:35-0400 (36557) other on 2016-06-25 Albumin 4.1 (no code) 06-25-2016 Not Available Bromocresol 17:35-0400 (84847) green (BCG) dye binding method mass conc Anion gap 4 17 (H) 06-25-2016 Not Available molar conc 17:35-0400 (38934) Bacteria LM Ql 1+ (A) 06-25-2016 Not Availab le (Urine sed) 16:35-0400 (59258) Bilirubin Ql (U) 2+ (A) 06-25-2016 Not Avail able 16:35-0400 (21666) Casts LM Ql Hyaline (no code) 06-25-2016 Not Available (Urine sed) 16:35-0400 (30845) Cobalamin 274.00 pg/mL (no code) 200 - 900 pg/mL 06-25-2016 Not Available (Vitamin B12) 16:35-0400 (33172) [Mass/Vol] Globulin 3.0 g/dL (no code) 2 - 3.5 g/dL 06-25-2016 Not Avail able Calculated mass 17:35-0400 (37404) conc (S) Glucose Test Negative (no code) 06-25-2016 Not Available strip (U) 16:35-0400 (00633) [Mass/Vol] HCO3 molar conc 26 (no code) 06-25-2016 Not Availa ble (P) 17:35-0400 (05119) Hemoglobin Ql Negative (no code) 06-25-2016 Not Availabl e (U) 16:35-0400 (17546) INR Coag 1.8 (no code) 06-25-2016 Not Available (Platelet poor 16:35-0400 (36747) plasma or blood) [Relative time] Ketones (U) Negative (no code) 06-25-2016 Not Available [Mass/Vol] 16:35-0400 (92417) Mucus Ql (Urine 1+ (A) 06-25-2016 Not Availa ble sed) 16:35-0400 (93656) Nitrite Ql (U) Negative (no code) 06-25-2016 Not Availab le 16:35-0400 (02063) Osmolality 295 (no code) 06-25-2016 Not Available Calculated 17:35-0400 (07144) pH (U) 5.5 [pH] (no code) 4.6 - 8 [pH] 06-25-2016 Not Avail able 16:35-0400 (14379) Urine Volume Urine Volume (no code) 06-25-2016 Not Availabl e Sufficient 16:35-0400 (05801) (10mL) Urobilinogen Qn 1 {Bernadette'U}/dL (A) 06-25-2016 Not A vailable (U) 16:35-0400 (20261) no information Urine Saved if (A) 06-25-2016 Not Avai lable Culture Needed 16:35-0400 (28996) (48hrs from time of collection) metabolic panel on 2016-06-25 ALP enzyme 63 U/L (no code) 44 - 147 U/L 06-25-2016 Not Avai lable act/vol 17:35-0400 (13000) ALT enzyme 29 U/L (no code) 4 - 40 U/L 06-25-2016 Not Availa ble act/vol 17:35-0400 (16596) AST enzyme 29 U/L (no code) 10 - 34 U/L 06-25-2016 Not Avail able act/vol 17:35-0400 (32541) Bilirubin mass 0.8 mg/dL (no code) 0.1 - 1.2 mg/dL 06-25-2016 N ot Available conc 17:35-0400 (09469) Calcium mass 9.1 mg/dL (no code) 8.5 - 10.2 mg/dL 06-25-2016 No t Available conc 17:35-0400 (82994) Chloride molar 102 mmol/L (no code) 95 - 106 mmol/L 06-25-2016 Not Available conc 17:35-0400 (94878) Creatinine mass 1.16 mg/dL (no code) 06-25-2016 Not Availa ble conc 17:350400 (16083) GFR/1.73 sq 46 (L) 90 - 120 06-25-2016 Not Availa ble M.predicted MDRD mL/min/{1.73_m2} mL/min/{1.73_m2} 17:35-0400 (23837) vol rate/area Glucose mass 109 mg/dL (no code) 60 - 125 mg/dL 06-25-2016 Not Available conc 17:350 (32547) Magnesium 2.0 mg/dL (no code) 1.7 - 2.2 mg/dL 06-25-2016 Not Av ailable [Mass/Vol] 16:35-0400 (57941) Potassium molar 3.5 mmol/L (no code) 3.7 - 5.2 mmol/L 06-25-2016 Not Available conc 17:35-0400 (38592) Protein mass 7.1 g/dL (no code) 6.4 - 8.3 g/dL 06-25-2016 Not Available conc 17:35-0400 (51877) Sodium molar 141 mmol/L (no code) 135 - 145 mmol/L 06-25-2016 N ot Available conc 17:350 (19628) Urea nitrogen 24 mg/dL (no code) 7 - 20 mg/dL 06-25-2016 Not A vailable mass conc 17:35-0400 (62248) hematology on 2016-06-25 Basophils Auto 0.0 10*3/uL (no code) 0 - 0.3 10*3/uL 06-25-2016 Not Available #/vol (Bld) 17:35-0400 (95127) Basophils/100 0.80 % (no code) 0.5 - 1 % 06-25-2016 Not Avai lable WBC Auto (Bld) 17:350400 (56457) Eosinophils Auto 0.1 10*3/uL (no code) 0.05 - 0.5 06-25-2016 No t Available #/vol (Bld) 10*3/uL 17:35-0400 (99889) Eosinophils/100 2.4 % (no code) 1 - 4 % 06-25-2016 Not Av ailable WBC Auto (Bld) 17:35-0400 (41644) Erythrocyte 13.1 % (no code) 11.6 - 14.6 % 06-25-2016 Not Av ailable distribution 17:35-0400 (59730) width Auto Ratio (RBC) Hematocrit Auto 40.9 % (no code) 36.1 - 50.3 % 06-25-2016 No t Available Volume Fraction 17:35-0400 (56428) (Bld) Hemoglobin mass 13.8 g/dL (no code) 12.1 - 17.2 g/dL 06-25-2016 Not Available conc (Bld) 17:35-0400 (78902) Lymphocytes Auto 1.17 10*3/uL (no code) 0.9 - 2.9 06-25-2016 No t Available #/vol (Bld) 10*3/uL 17:35-0400 (86454) Lymphocytes/100 23.4 % (no code) 20 - 40 % 06-25-2016 Not Av ailable WBC Auto (Bld) 17:35-0400 (82747) MCH Auto Entitic 33.7 pg (H) 27 - 31 pg 06-25-2016 Not Available mass (RBC) 17:35-0400 (44350) MCHC Auto mass 33.7 g/dL (no code) 32 - 36 g/dL 06-25-2016 Not Available conc (RBC) 17:35-0400 (76440) MCV Auto Entitic 99.8 fL (H) 80 - 100 fL 06-25-2016 Not Available volume (RBC) 17:35-0400 (78647) Monocytes Auto 0.6 10*3/uL (no code) 0.3 - 0.9 06-25-2016 Not A vailable #/vol (Bld) 10*3/uL 17:35-0400 (97087) Monocytes/100 12.4 % (H) 2 - 8 % 06-25-2016 Not Avai lable WBC Auto (Bld) 17:35-0400 (03300) Neutrophils Auto 3.05 10*3/uL (no code) 1.7 - 7 10*3/uL 06-26-19 17 Not Available #/vol (Bld) 17:35-0400 (77690) Neutrophils/100 61.0 % (no code) 40 - 60 % 06-25-2016 Not Av ailable WBC Auto (Bld) 17:35-0400 (70729) Platelet mean 9.7 fL (no code) 7.2 - 11.7 fL 06-25-2016 Not Available volume Auto 17:350400 (70608) Entitic volume (Bld) Platelets Auto 194 10*3/uL (no code) 150 - 450 06-25-2016 Not A vailable #/vol (Bld) 10*3/uL 17:35-0400 (08868) PT Coag (PPP) 21.6 (H) 06-25-2016 Not Availabl e [Time] 16:350400 (94275) RBC Auto #/vol 4.10 10*6/uL (no code) 4.2 - 6.1 06-25-2016 Not Available (Bld) 10*6/uL 17:35-0400 (55818) WBC Auto #/vol 5.00 10*3/uL (no code) 3.5 - 10.5 06-25-2016 Not Available (Bld) 10*3/uL 17:35-0400 (90652) Vital Signs The data below is from unstructured sources Vital Response Date/Time Temperature (Fahrenheit) 98.6 degree s F (97.6 - 99.5) Temperature (Calculated Celsius) 37. 19272 degrees C (36.4 - 37.5) Pulse Rate (adult) 70 bpm (60 - 90) Respiratory Rate 18 bpm (12 - 24) O2 Sat by Pulse Oximetry 98 % (88 - 100) Blood Pressure 168/107 mm Hg Pain Pain Intensity 6 Height (Feet) 5 feet Height (Inches) 5 inches Height (Calculated Centimeters) 165. 372668 cm Weight (Pounds) 200 pounds Weight (Calculated Kilograms) 90.718 475 kilograms Calculated BMI 33.28 Vital Response Date/Time Temperature (Fahrenheit) 97.2 degree s F (97.6 - 99.5) Temperature (Calculated Celsius) 36. 62220 degrees C (36.4 - 37.5) Temperature Source Temporal Pulse Rate (adult) 66 bpm (60 - 90) Respiratory Rate 16 bpm (12 - 24) O2 Sat by Pulse Oximetry 96 % (88 - 100) Blood Pressure 117/75 mm Hg Blood Pressure Mean 89 mm Hg Pain Pain Intensity 5 Height (Feet) 5 feet Height (Inches) 5.00 inches Height (Calculated Centimeters) 165. 360907 cm Weight (Pounds) 215 pounds Weight (Ounces) 2.0 oz Weight (Calculated Grams) 86613.060 gm Weight (Calculated Kilograms) 97.579 060 kilograms Calculated BMI 35.15 Vital Response Date/Time Temperature (Fahrenheit) 98.7 degree s F (97.6 - 99.5) Temperature (Calculated Celsius) 37. 33706 degrees C (36.4 - 37.5) Temperature Source Tympanic Pulse Rate (adult) 96 bpm (60 - 90) Respiratory Rate 20 bpm (12 - 24) O2 Sat by Pulse Oximetry 95 % (88 - 100) Blood Pressure 111/82 mm Hg Pain Pain Intensity 0 Height (Feet) 5 feet Height (Inches) 5.00 inches Height (Calculated Centimeters) 165. 468625 cm Weight (Pounds) 215 pounds Weight (Ounces) 2.0 oz Weight (Calculated Grams) 98679.060 gm Weight (Calculated Kilograms) 97.579 060 kilograms Calculated BMI 35.77 Vital Response Date/Time Temperature (Fahrenheit) 97.0 degree s F (97.6 - 99.5) Temperature (Calculated Celsius) 36. 82727 degrees C (36.4 - 37.5) Temperature Source Tympanic Pulse Rate (adult) 69 bpm (60 - 90) Respiratory Rate 22 bpm (12 - 24) O2 Sat by Pulse Oximetry 93 % (88 - 100) Blood Pressure 129/79 mm Hg Pain Pain Intensity 0 Height (Feet) 5 feet Height (Inches) 5.00 inches Height (Calculated Centimeters) 165. 844438 cm Weight (Pounds) 215 pounds Weight (Ounces) 2.0 oz Weight (Calculated Grams) 31104.060 gm Weight (Calculated Kilograms) 97.579 060 kilograms [...] Directives No 9:11am Health Care Power of Public Health Educator No 08/18/14 7:55am Organ Donor No 08/18/14 7:55am Resuscitation Status Full Code 10/14/14 9:11am Directive Response Recor ded Date/Time Advance Directives No 7:55am Health Care Power of Public Health Educator No 08/18/14 7:55am Organ Donor No 08/18/14 7:55am Resuscitation Status Full Code 08/18/14 7:55am Directive Response Recor ded Date/Time Advance Directives No 5:55pm Health Care Power of Public Health Educator No 01/08/14 5:55pm Organ Donor No 01/08/14 5:55pm Resuscitation Status Full Code 01/08/14 5:55pm Discharge Instructions No hospital discharge instructions.No hospital discharge instructions.No hospital discharge instructions.No hospital discharge instructions. Additional Source Comments This clinical document has been generated using [employer] software that has been certified by the Office of the National Coordinator for Health Information Technology (ONC 15.99.04.3023.Diam.31.00.0.135062) and the National Committee for Process Engineer (NCQA, as an eMeasure certified technology). FOR [...] BASED ON T HE PRIMARY CLINICAL RECORDS. [employer] provides no warranty or guara ntee of the accuracy or completeness of information in this document.The followi ng information is based on time limited clinical information
--- OUTSIDE RECORDS SUMMARY | 2019-08-31 23:30 | XMS REPORT | Encounter Summary ---
Author Author [facility] Organization [facility] Address Unknown Phone Unavailable Care Team Providers Care Peanut Sheller Name Role Phone Yulissa Zapata PCP Reason for Visit * Reason Comments Lab orders INR standing order Encounter Details Care Team Description Date Type Department France Louis LPN Lab orders (INR standing order) 07/29/2019 Telephone [facility] [address] [place] [address] Social History Date Tobacco Use Types Packs/Day [...] Diagnosis Paroxysmal atrial fibrillation (HCC) 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
--- OUTSIDE RECORDS SUMMARY | 2019-08-31 23:30 | XMS REPORT | Encounter Summary ---
Author Author [facility] Organization [facility] Address Unknown Phone Unavailable Care Team Providers Care Risk Specialist Name Role Phone Yulissa Zapata PCP Encounter Details Care Team Description Date Type Department Nirav Power LPN 08/20/2019 Telephone [facility] [address] [place] [address] Social History Date Tobacco Use Types Packs/Day [...]
--- OUTSIDE RECORDS SUMMARY | 2019-08-31 23:30 | XMS REPORT | Clinical Summary ---
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 use of anticoagulant therapy Encounters Care Team Description Date Type Specialty Nirav Power LPN 08/20/2019 Telephone Cardiology Erwin Taylor LPN jail current use of anticoagulant t herapy; Paroxysmal atrial fibrillation (HCC); Atrial flutter, unspecified type (HCC) 08/13/2019 Anticoag visit Primary Care France Louis LPN Lab orders (INR standing order) 07/29/2019 Telephone Cardiology Mary Jo Melvin LPN intermediate designer current use of anticoagulant t herapy; Paroxysmal atrial fibrillation (HCC); Atrial flutter, unspecified type (HCC) 07/13/2019 Anticoag visit Cardiology Vickie Bradley RN INR Reminder 07/13/2019 Telephone Tamica Forrest RN 07/09/2019 Telephone Cardiology Owen Dickens MD Other 07/09/2019 Refill Cardiology Mirna Pratt LPN intermediate designer current use of anticoagulant t herapy; Paroxysmal [...] (Age 87) Sister Mirella (Age 46) Sister Mayela (Age 72) Sister Gris (Age 87) Social [...] Comments Vital Sign 131/77 03/16/2019 12:42 PM LEASE OUT WORKER Blood Pressure 60 03/16/2019 12:42 PM LEASE OUT WORKER Pulse 35.9 C (96.7 F) 03/16/2019 12:42 PM LEASE OUT WORKER Temperature 20 03/16/2019 12:42 PM LEASE OUT WORKER Respiratory Rate 96% 03/16/2019 12:42 PM LEASE OUT WORKER Oxygen Saturation - - Inhaled Oxygen Concentration 88.9 kg (196 lb) 03/16/2019 12:42 PM LEASE OUT WORKER Weight 165.1 cm (5' 5") 03/16/2019 12:42 PM LEASE OUT WORKER Height 32.62 03/16/2019 12:42 PM LEASE OUT WORKER Body Mass Index Plan of Treatment Health [...] Dates Group Medicare MEDICARE MEDICARE xxxxxxxxxxx 2012- [place] PART A B [place], [place] COMMERCIAL-NONCONTRACTED CIG[employer] xxxxxxxxxx [id number] MEDICARE resent SUPPLEMENT Advance Directives For more information, please contact: [phone] 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
--- OUTSIDE RECORDS SUMMARY | 2019-08-31 23:30 | XMS REPORT | Encounter Summary ---
Author Author [facility] Organization [facility] Address Unknown Phone Unavailable Care Team Providers Care Regulatory Lead Name Role Phone Yulissa Zapata MD PCP Encounter Details Care Team Description Date Type Department Cecilia Becerril MA Dysphagia, unspecified type 08/27/2019 Orders Only [facility] [address] [place] [id number] Social History Date Tobacco Use Types Packs/Day [...]
--- OUTSIDE RECORDS SUMMARY | 2019-08-31 23:30 | XMS REPORT | Encounter Summary ---
Author Author [facility] Organization [facility] Address Unknown Phone Unavailable Care Team Providers Care Automotive Parts Advisor Name Role Phone Yulissa Zapata MD PCP Reason for Visit * Auth/Cert Referred By Contact Referred To Contact Status Reason Specialty Diagnoses / Procedures Diagnoses Dysphagia, unspecified type Dysphagia, unspecified type [R13.10] P rocedures SD ESOPHAGEAL MOTILITY STUDY W/INTERP&RPT SD ESOPHAGOGASTRODUOD ENOSCOPY TRANSORAL DIAGNOSTIC SD ESOPHAGOGASTRODUOD ENOSCOPY US SCOPE W/ADJ STRXRS EGD ESOPHAGOGASTRODUOD ENOSCOPY WITH LIMITED ENDOSCOPIC ULTRASOUND EXAMINATION - FLEXIBLE Encounter Details Care Team Description Date Type [place] [address] [place], [place] [address] Dysphagia, unspecified type 08/28/2019 [facility] [address] [place], [place] [id number] Social History Date Tobacco Use Types Packs/Day [...] After 5:00 pm, holidays or weekends call [phone] a nd ask for the GI Doctor supply person. documented in this encounter Medications at Time [...] RN - 08/28/2019 9:20 AM CDT [facility] Endoscopy[facility]Motility [facility] Esophageal Manometry 08/28/2019 [...] PATHOLOGY (08/28/2019 1:06 PM CDT) PATHOLOGY [facility] [email or web address] Department of Pathology and Laboratory Medicine [address] [place] [address] Surgical Pathology Office: [phone] SURGICAL PATHOLOGY REPORT NAME: PAU MCCABE SURG PATH #: [id number] MR #: [id number] SPECIMEN CLASS: SR BILLING #: [id number] ALT ID #: LOCATION: [facility] DATE OF PROCEDURE: 08/28/2019 AGE: 69 SEX: [...] Ph one Number [facility] [address] [place] [address] * ENDOSCOPIC ULTRASOUND REPORT (08/28/2019 12:13 PM CDT) Provation Patient Name: Estelle MAC OTHER Report Procedure Date: 08/28/2019 RESULTS 12:13 PM CSN: [id number] Date of : 1950 Gender: Female Attending Physician: Damon Gallegos MD Procedure: Upper EUS Indications: Dysphagia Providers: Damon Gallegos MD (Doctor), Ford Mclain MD (Fellow), Rylan Sal RN (Nurse), Jori Thomas, Frame Coverer (Frame Coverer) Referring Physician: Yulissa Zapata Medications: Monitored Anesthesia [...] 58 seconds Procedure Code(s): --- Professional --- 28810, Esophagogastroduodenoscopy, flexible, transoral; with endoscopic ultrasound examination limited to the esophagus, stomach or duodenum, and adjacent structures 63944, Esophagogastroduodenoscopy, flexible, transoral; with biopsy, single or multiple CPT copyright 2019 [employer]. All rights reserved. The codes documented in this report are preliminary and upon plastic tile setter review may be revised to meet current [...]
--- OUTSIDE RECORDS SUMMARY | 2019-08-31 23:30 | XMS REPORT | Encounter Summary ---
Author Author [facility] Organization [facility] Address Unknown Phone Unavailable Care Team Providers Care Price Analyst Name Role Phone Yulissa Zapata MD PCP Reason for Visit * Auth/Cert Referred By Contact Referred To Contact Status Reason Specialty Diagnoses / Procedures Diagnoses Dysphagia, unspecified type Dysphagia, unspecified type [R13.10] P rocedures GA ESOPHAGEAL MOTILITY STUDY W/INTERP&RPT GA ESOPHAGOGASTRODUOD ENOSCOPY TRANSORAL DIAGNOSTIC GA ESOPHAGOGASTRODUOD ENOSCOPY US SCOPE W/ADJ STRXRS EGD ESOPHAGOGASTRODUOD ENOSCOPY WITH LIMITED ENDOSCOPIC ULTRASOUND EXAMINATION - FLEXIBLE Encounter Details Care Team Description Date [place] [address] [place] [address] [phone] ESOPHAGEAL MOTILITY STUDY 08/28/[address] [address] Social History Date Tobacco Use Types Packs/Day [...] After 5:00 pm, holidays or weekends call [phone] a nd ask for the GI Doctor cushion padder. documented in this encounter Medications at Time [...] RN - 08/28/2019 9:20 AM CDT [facility] Endoscopy/Motility Center Esophageal Manometry [...] esophageal manometry scheduled on 08/28/19 @ 0945. [facility] 1st Call List / Next 2 to 3 Wks or so TELEMETRY STRIPS-SCAN 08/28/2019 12:00 AM CDT documented in this encounter Results * SURGICAL PATHOLOGY (08/28/2019 1:06 PM CDT) PATHOLOGY [facility] [employer] [facility] [email or web address] Department of Pathology and Laboratory Medicine [address] [place] [address] Surgical Pathology Office: [phone] SURGICAL PATHOLOGY REPORT NAME: PAU MCCABE SURG PATH #: [id number] MR #: [id number] SPECIMEN CLASS: SR BILLING #: [id number] ALT ID #: LOCATION: [facility] DATE OF PROCEDURE: 08/28/2019 AGE: 69 SEX: [...] Ph one Number [facility] [address] [place] [address] * ENDOSCOPIC ULTRASOUND REPORT (08/28/2019 12:13 PM CDT) Provation Patient Name: Estelle MAC OTHER Report Procedure Date: 08/28/2019 RESULTS 12:13 PM CSN: [id number] Date of : 1950 Gender: Female Attending Physician: Damon Gallegos MD Procedure: Upper EUS Indications: Dysphagia Providers: Damon Gallegos MD (Doctor), Ford Mclain MD (Fellow), Rylan Sal RN (Nurse), Jori Thomas Investment Specialist (Investment Specialist) Referring Physician: Yulissa Zapata Medications: Monitored Anesthesia [...] 58 seconds Procedure Code(s): --- Professional --- 01454, Esophagogastroduodenoscopy, flexible, transoral; with endoscopic ultrasound examination limited to the esophagus, stomach or duodenum, and adjacent structures 96566, Esophagogastroduodenoscopy, flexible, transoral; with biopsy, single or multiple CPT copyright 2019 [employer]. All rights reserved. The codes documented in this report are preliminary and upon bindery leadperson review may be revised to meet current [...]
--- OUTSIDE RECORDS SUMMARY | 2019-08-31 23:30 | XMS REPORT | Encounter Summary ---
Author Author [facility] Organization [facility] Address Unknown Phone Unavailable Care Team Providers Care Electric Brain Wave Equipment Mechanic Name Role Phone Yulissa Zapata MD PCP Reason for Visit * Auth/Cert Referred By Contact Referred To Contact Status Reason Specialty Diagnoses / Procedures Diagnoses Dysphagia, unspecified type Dysphagia, unspecified type [R13.10] P rocedures [place] ESOPHAGEAL MOTILITY STUDY W/INTERP&RPT [place] ESOPHAGOGASTRODUOD ENOSCOPY TRANSORAL DIAGNOSTIC [place] ESOPHAGOGASTRODUOD ENOSCOPY US SCOPE W/ADJ STRXRS EGD ESOPHAGOGASTRODUOD ENOSCOPY WITH LIMITED ENDOSCOPIC ULTRASOUND EXAMINATION - FLEXIBLE Encounter Details Care Team Description Date Type Department Damon Gallegos MD [address] Ortho/Med Pavilion Lvl 2B [place] [address] EGD 08/28/2019 Surgery [facility] [address] [place], [place] [id number] Social History Date Tobacco Use Types Packs/Day [...] After 5:00 pm, holidays or weekends call [phone] a nd ask for the GI Doctor roll contour grinder. documented in this encounter Medications at Time [...] RN - 08/28/2019 9:20 AM CDT [facility] Endoscopy/Motility Center Esophageal Manometry 08/28/2019 [...] PM CDT) PATHOLOGY [facility] [email or web address] Department of Pathology and Laboratory Medicine [address] [place] [address] Surgical Pathology Office: [phone] SURGICAL PATHOLOGY REPORT NAME: PAU MCCABE SURG PATH #: [id number] MR #: [id number] SPECIMEN CLASS: SR BILLING #: [id number] ALT ID #: LOCATION: [facility] DATE OF PROCEDURE: 08/28/2019 AGE: 69 SEX: [...] Esophagus Tissue - Esophagus Performing Organization Address City/State/[facility] one Number [facility] [address] [place] [address] * ENDOSCOPIC ULTRASOUND REPORT (08/28/2019 12:13 PM CDT) Provation Patient Name: Estelle MAC OTHER Report Procedure Date: 08/28/2019 RESULTS 12:13 PM CSN: [id number] Date of : 1950 Gender: Female Attending Physician: Damon Gallegos MD Procedure: Upper EUS Indications: Dysphagia Providers: Damon Gallegos MD (Doctor), Ford Mclain MD (Fellow), Rylan Sal RN (Nurse), Jori Thomas Driver Service Technician (Driver Service Technician) Referring Physician: Yulissa Zapata Medications: Monitored Anesthesia [...] 58 seconds Procedure Code(s): --- Professional --- 42814, Esophagogastroduodenoscopy, flexible, transoral; with endoscopic ultrasound examination limited to the esophagus, stomach or duodenum, and adjacent structures 90350, Esophagogastroduodenoscopy, flexible, transoral; with biopsy, single or multiple CPT copyright 2019 [employer]. All rights reserved. The codes documented in this report are preliminary and upon seafood processor review may be revised to meet current [...]
--- OUTSIDE RECORDS SUMMARY | 2019-08-31 23:30 | XMS REPORT | Encounter Summary ---
Author Author [facility] Organization [facility] Address Unknown Phone Unavailable Care Team Providers Care Upholstery Department Supervisor Name Role Phone Yulissa Zapata MD PCP Encounter Details Care Team Description Date Type Department Damon Gallegos MD [address] [facility] Ortho/Med Pavilion Lvl 2B [place] [address] 07/30/2019 Telephone [facility] [address] [employer] [place] [address] Social History Date Tobacco Use [...]
--- OUTSIDE RECORDS SUMMARY | 2019-08-31 23:30 | XMS REPORT | Encounter Summary ---
Author Author [facility] Organization [facility] Address Unknown Phone Unavailable Care Team Providers Care Scrap Hoist Operator Name Role Phone Yulissa Zapata MD PCP Encounter Details Care Team Description Date Type Department Damon Gallegos MD [address] [facility] Ortho/Med Pavilion Lvl 2B [place], [place] [id number] Dysphagia, unspecified type (Primary Dx) 07/30/2019 Prep for Case [facility] [address] [place] [phone] Social History Date Tobacco Use Types Packs/Day [...]
--- OUTSIDE RECORDS SUMMARY | 2019-08-31 23:30 | XMS REPORT | Encounter Summary ---
Author Author [facility] Organization [facility] Address Unknown Phone Unavailable Care Team Providers Care Varnish Remover Name Role Phone Yulissa Zapata MD PCP Reason for Visit * Reason Comments Dysphagia * Consultation (Routine) Referred By Contact Referred To Contact Status Reason Specialty Diagnoses / Procedures Chau Christy MD [address] [facility] [address] [place] [address] [facility] Gastro Cl [address] [place] [address] Closed Gastroenterology Encounter Details Care Team Description Date Type Department Damon Gallegos MD [address] [facility] Ortho/Med Pavilion Lvl [address]B [place] [address] [phone] Adalberto Tinsley MBBS [address] [place] [address] [phone] Dysphagia, unspecified type (Primary Dx) 07/29/2019 Scheduled [facility] [address] [place] [address] Social History Date Tobacco Use [...] permitted). If you do not have a local company flatbed truck driver we will be unable to do the test. -You will be here for 3-4 hours from arrival time. -You will not be able to return to work the same day if you have receive d sedation. PLEASE LET ME KNOW IF YOU HAVE ANY QUESTIONS OR ARE UNABLE TO SCHEDULE. THANK YOU! Lissett Alex RN, BSN [phone] documented in this encounter Progress Notes * Damon Gallegos MD - 07/29/2019 3:20 PM CDT Telehealth Visit Note Date of Service: 07/29/2019 Subjective: Obtained patient's verbal consent to treat them and their agreement to [facility] policy and NPP via this telehealth visit [...] was seen in GI clinic today for on [facility] visit: 1. Esophageal dysphagia: Ongoing since Jan [...] weeks. Adalberto Tinsley MD Gastroenterology and Hepatology [phone] GI staff attestation: The patient and the [...]
--- OUTSIDE RECORDS SUMMARY | 2019-08-31 23:30 | XMS REPORT | Encounter Summary ---
Author Author [facility] Organization [facility] Address Unknown Phone Unavailable Care Team Providers Care Fabrication Engineer Name Role Phone Yulissa Zapata MD PCP Encounter Details Care Team Description Date Type Department Enzo Jay MD [address] [address] [phone] Lilliam Good CRNA [address] [address] [phone] 08/28/2019 Anesthesia [facility] [address] [place] [address] Anesthesia Record Responsible Anesthesiologist Anesthesia Start Time [...]
--- OUTSIDE RECORDS SUMMARY | 2019-08-31 23:30 | XMS REPORT | Encounter Summary ---
Author Author [facility] Organization [facility] Address Unknown Phone Unavailable Care Team Providers Care Chemical Research Engineer Name Role Phone Yulissa Zapata MD [...]
--- OUTSIDE RECORDS SUMMARY | 2019-08-31 23:30 | XMS REPORT | Encounter Summary ---
Author Author [facility] Organization [facility] Address Unknown Phone Unavailable Care Team Providers Care Detailer Pharmaceuticals Name Role Phone Yulissa Zapata MD PCP Encounter Details Care Team Description Date Type Department Damon Gallegos MD [address] [facility] Ortho/Med Pavilion Lvl 2B [place], [place] [phone] 05/06/2019 Documentation The [facility] [address] [place] [phone] Social History Date Tobacco Use Types Packs/Day [...]
--- OUTSIDE RECORDS SUMMARY | 2019-08-31 23:30 | XMS REPORT | Encounter Summary ---
Author Author [facility] Organization [facility] Address Unknown Phone Unavailable Care Team Providers Care Coal Deliverer Name Role Phone Yulissa Zapata PCP Encounter Details Care Team Description Date Type Department Mary Jo Melvin LPN terminal gauger current use of anticoagulant t herapy; Paroxysmal atrial fibrillation (HCC); Atrial flutter, unspecified type (HCC) 07/13/2019 Anticoag visit [facility] [address] [place] [address] [address] [place] [address] Social History Date Tobacco Use Types Packs/Day [...] documented in this encounter Visit Diagnoses Diagnosis terminal gauger current use of anticoagulant therapy Paroxysmal atrial fibrillation (HCC) Atrial fibrillation Atrial flutter, unspecified type (HCC) documented in this encounter
--- OUTSIDE RECORDS SUMMARY | 2019-08-31 23:30 | XMS REPORT | Encounter Summary ---
Author Author [facility] Organization [facility] Address Unknown Phone Unavailable Care Team Providers Care Logistics Supervisor Name Role Phone Yulissa Zapata MD PCP Encounter Details Care Team Description Date Type Department Damon Gallegos MD [address] [facility] Ortho/Med Pavilion Lvl [address]B [place] [address] Dysphagia, unspecified type (Primary Dx) 07/30/2019 Prep for Case [facility] [address] [place] [address] Social History Date Tobacco Use [...]
--- OUTSIDE RECORDS SUMMARY | 2019-08-31 23:30 | XMS REPORT | Clinical Summary ---
Author Author [facility] Organization [facility] Address Unknown Phone Unavailable Care Team Providers Care Wheat Combine Driver Name Role Phone Yulissa Zapata MD PCP Source Comments Some departments are not documenting in the electronic medical record. If you d o not see the information that you expected, contact Release of Information in [facility] [employer] Information Management department at [phone] for further assistan ce in locating additional records.[facility] Allergies No Known Allergies Medications End [...] PATHOLOGY (08/28/2019 1:06 PM CDT) PATHOLOGY [facility] MAIN LAB REPORT [facility] [email or web address] Department of Pathology and Laboratory Medicine [address] [place] [address] Surgical Pathology Office: [phone] SURGICAL PATHOLOGY REPORT NAME: PAU MCCABE F. SURG PATH #: [id number] MR #: [id number] SPECIMEN CLASS: SR BILLING #: [id number] ALT ID #: LOCATION: END DATE OF [...] City/State/Zipcode Ph one Number MAIN LAB [address] [place] [address] * ENDOSCOPIC ULTRASOUND REPORT (08/28/2019 12:13 PM CDT) Provation Patient Name: Estelle MAC OTHER Report Procedure Date: 08/28/2019 RESULTS 12:13 PM CSN: [id number] Date of : 1950 Gender: Female Attending Physician: Damon Gallegos MD Procedure: Upper EUS Indications: Dysphagia Providers: Damon Gallegos MD (Doctor), Ford Mclain MD (Fellow), Rylan Sal RN (Nurse), Jori Thomas, Cable Television Access Coordinator (Cable Television Access Coordinator) Referring Physician: Yulissa Zapata Medications: Monitored [...] 58 seconds Procedure Code(s): --- Professional --- 97473, Esophagogastroduodenoscopy, flexible, transoral; with endoscopic ultrasound examination limited to the esophagus, stomach or duodenum, and adjacent structures 82748, Esophagogastroduodenoscopy, flexible, transoral; with biopsy, single or multiple CPT copyright 2019 [employer]. All rights reserved. The codes documented in this report are preliminary and upon woods superintendent review may be revised to meet current [...] 2014-P MEDICARE resent SUPPLEMENT Advance Directives Patient Tractor Trailer Mechanic Explanation Type Date Recorded Advance Directive/DPOA
--- OUTSIDE RECORDS SUMMARY | 2019-08-31 23:30 | XMS REPORT | Encounter Summary ---
Author Author [facility] Organization [facility] Address Unknown Phone Unavailable Care Team Providers Care Agriculture Engineer Name Role Phone Unverified, Unverified PCP Unavailable Reason for Visit * Reason Comments Referral Dr. Horacio hung Encounter Details Care Team Description Date Type Department Damon Gallegos MD [address] [facility] Ortho/Med Pavilion Lvl [address] [place] [address] Referral (Dr. Horacio hung) 04/28/2019 Telephone [facility] [address] [place] [address] Social History Date Tobacco Use Types Packs/Day Years Used Never Assessed Sex Assigned at Date Recorded Female Industry Job Start Date Occupation Not on file Not on file Not on file Travel End Travel History Travel Start No recent travel history available. documented as of this encounter Miscellaneous Notes * Telephone Encounter - Corrie Guaman RN - 04/28/2019 3:35 PM CAD INTERN Referral received from Dr. Horacio hung. Reviewed with Dr. El ZAMORA for OV obtained. Appt request edited to reflect scheduling instruction. Reminder set to f/u 05/05/19 to ensure OV scheduled by IM scheduling. INTERN documented in this encounter Plan of Treatment Not on filedocumented as of this encounter Visit Diagnoses Not on filedocumented in this encounter
--- OUTSIDE RECORDS SUMMARY | 2019-08-31 23:30 | XMS REPORT | Encounter Summary ---
Author Author [facility] Organization [facility] Address Unknown Phone Unavailable Care Team Providers Care Wool Classer Name Role Phone Yulissa Zapata PCP Encounter Details Care Team Description Date Type Department Erwin Taylor LPN ferry terminal supervisor current use of anticoagulant t herapy; Paroxysmal atrial fibrillation (HCC); Atrial flutter, unspecified type (HCC) 08/13/2019 Anticoag visit [facility] [address] [facility] [address] [place] [address] Social History Date Tobacco Use Types Packs/Day [...] documented in this encounter Visit Diagnoses Diagnosis halfway current use of anticoagulant therapy Paroxysmal atrial fibrillation (HCC) Atrial fibrillation Atrial flutter, unspecified type (HCC) documented in this encounter
--- OUTSIDE RECORDS SUMMARY | 2019-08-31 23:31 | XMS REPORT | Encounter Summary ---
Author Author [facility] Organization [facility] Address Unknown Phone Unavailable Care Team Providers Care Brand Recorder Name Role Phone Yulissa Zapata PCP Encounter Details Care Team Description Date Type Department Ayana Sánchez LPN Atrial flutter, unspecified type (HCC); termite treater helper current use of anticoagulant therapy; Paroxysmal atrial fibrillation (HCC) 05/01/2019 Anticoag visit [facility] [address] [facility] [address] [place] [address] Social History Date Tobacco Use Types Packs/Day [...] Ayana Sánchez LPN - 05/01/2019 9:18 AM STRAP MAKING MACHINE OPERATOR Spoke with patient. INR results and recommendations given per [facility] Table 7. Will recheck PT/INR [...] 1 dose/ no diet changes/ no symptoms P MAKING MACHINE OPERATOR documented in this encounter Plan of [...] Diagnoses Diagnosis Atrial flutter, unspecified type (HCC) halfway current use of anticoagulant therapy Paroxysmal atrial fibrillation (HCC) Atrial fibrillation documented in this encounter
--- OUTSIDE RECORDS SUMMARY | 2019-08-31 23:31 | XMS REPORT | Encounter Summary ---
Author Author [facility] Organization [facility] Address Unknown Phone Unavailable Care Team Providers Care Popped Corn Oven Attendant Name Role Phone Yulissa Zapata PCP Encounter Details Care Team Description Date Type Department Erwin Taylor LPN Atrial flutter, unspecified type (HCC); correction current use of anticoagulant therapy; Paroxysmal atrial fibrillation (HCC) 04/23/2019 Anticoag visit [facility] [address] [facility] [address] [place] [address] Social History Date Tobacco Use Types Packs/Day [...] Erwin Taylor LPN - 04/23/2019 12:45 PM MOTOR VEHICLE COMPLIANCE ANALYST Patient uses a home monitor. Table 7. Spoke to patient regarding results. Provided recommendation and next te st date and she voiced understanding. Patient did not get the voicemail left last week with recs to increase Warfarin. She has been taking 1.5 mg daily. R VEHICLE COMPLIANCE ANALYST documented in this encounter Plan of Treatment [...] Diagnoses Diagnosis Atrial flutter, unspecified type (HCC) computer terminal operator current use of anticoagulant therapy Paroxysmal atrial fibrillation (HCC) Atrial fibrillation documented in this encounter
--- OUTSIDE RECORDS SUMMARY | 2019-08-31 23:31 | XMS REPORT | Encounter Summary ---
Author Author [facility] Organization [facility] Address Unknown Phone Unavailable Care Team Providers Care Grade Foreman Name Role Phone Yulissa Zapata PCP Reason for Visit * Reason Comments RECORDS Encounter Details Care Team Description Date Type Department Yary Nelson, RN RECORDS 04/24/2019 Telephone [facility] [address] [address] Social History Date Tobacco Use Types Packs/Day [...] Yary Nelson RN - 04/24/2019 2:03 PM DOUBLE END SEWER PT CALLED IN TO GET SOME RECORDS FAXED TO DR [place] OFFICE FOR THE REFERRAL. [facility] SEND TO [phone] ROBERTO ANDREA LE END SEWER documented in this encounter Plan of Treatment Not on filedocumented as of this encounter Visit Diagnoses Not on filedocumented in this encounter
--- OUTSIDE RECORDS SUMMARY | 2019-08-31 23:31 | XMS REPORT | Encounter Summary ---
Author Author [facility] Organization [facility] Address Unknown Phone Unavailable Care Team Providers Care Combination Saw Operator Name Role Phone Yulissa Zapata PCP Reason for Visit * Reason Comments Lab orders Encounter Details Care Team Description Date Type Department Ibis Goss LPN Lab orders 06/17/2019 Telephone [facility] [address] [facility] [address] [place] [address] Social History Date Tobacco Use Types Packs/Day [...] Diagnosis Paroxysmal atrial fibrillation (HCC) Atrial fibrillation treatment plant mechanic current use of anticoagulant therapy documented in this encounter
--- OUTSIDE RECORDS SUMMARY | 2019-08-31 23:31 | XMS REPORT | Encounter Summary ---
Author Author [facility] Organization [facility] Address Unknown Phone Unavailable Care Team Providers Care Warehouse Laborer Name Role Phone Yulissa Zapata PCP Reason for Visit * Reason Comments INR Reminder 1st attempt to contact jair ent regarding overdue INR. Constance ESTEVEZ Encounter Details Care Team Description Date Type Department Kristi Chapin LPN INR Reminder (1st attempt to contact pat ient regarding overdue INR. Constance ESTEVEZ) 02/25/2019 Telephone [facility] [address] [facility] [address] [place] [address] Social History Date Tobacco Use Types Packs/Day [...] Kristi Chapin LPN - 02/25/2019 1:00 PM METER TESTER POLYPHASE 02-25-2019 Spoke with Brynn regarding her overdue INR. Brynn stated she will h ave it done by Saturday02-27-2019. R TESTER POLYPHASE documented in this encounter Plan of Treatment Not on filedocumented as of this encounter Visit Diagnoses Diagnosis jail current use of anticoagulant therapy Paroxysmal atrial fibrillation (HCC) Atrial fibrillation documented in this encounter
--- OUTSIDE RECORDS SUMMARY | 2019-08-31 23:31 | XMS REPORT | Encounter Summary ---
Author Author [facility] Organization [facility] Address Unknown Phone Unavailable Care Team Providers Care Building Services Supervisor Name Role Phone Yulissa Zapata PCP Reason for Visit * Reason Comments Medication Refill Encounter Details Care Team Description Date Type Department Anastasia Olmstead LPN Medication Refill 04/07/2019 Refill [facility] [address] [facility] [address] [place] [address] Social History Date Tobacco Use Types Packs/Day [...]
--- OUTSIDE RECORDS SUMMARY | 2019-08-31 23:31 | XMS REPORT | Encounter Summary ---
Author Author [facility] Organization [facility] Address Unknown Phone Unavailable Care Team Providers Care Hydraulic Boom Operator Name Role Phone Yulissa Zapata PCP Reason for Visit * Reason Comments INR Reminder 1st Attempt Encounter Details Care Team Description Date Type Department Kathryn Gage PA-C [address] [place] [address] [phone] INR Reminder (1st Attempt ) 03/24/2019 Telephone [facility] [address] [place] [address] Social History Date Tobacco Use Types Packs/Day [...] - Nilson Holguin - 03/24/2019 2:35 PM SUPERVISOR WOUND Called pt stated that she is going to go in Shortly and get INR Checked 03/24/19 20. TQ RVISOR WOUND documented in this encounter Plan of Treatment Not on filedocumented as of this encounter Visit Diagnoses Not on filedocumented in this encounter
--- OUTSIDE RECORDS SUMMARY | 2019-08-31 23:31 | XMS REPORT | Encounter Summary ---
Author Author [facility] Organization [facility] Address Unknown Phone Unavailable Care Team Providers Care Contact Center Engineer Name Role Phone Yulissa Zapata PCP Reason for Visit * Reason Comments Results Encounter Details Care Team Description Date Type Department Amanda Mueller RN Results 03/24/2019 Telephone [facility] [address] [facility] [address] [place] [address] Social History Date Tobacco Use Types Packs/Day [...] Amanda Mueller RN - 03/24/2019 11:40 AM MANAGER PRODUCTION Pt called to get results from motility [...] her after another week. Pt vebalizes understanding. GER PRODUCTION documented in this encounter Plan of Treatment Not on filedocumented as of this encounter Visit Diagnoses Not on filedocumented in this encounter
--- OUTSIDE RECORDS SUMMARY | 2019-08-31 23:31 | XMS REPORT | Encounter Summary ---
Author Author [facility] Organization [facility] Address Unknown Phone Unavailable Care Team Providers Care Getter Operator Name Role Phone Yulissa Zapata PCP Reason for Visit * Reason Comments Other Encounter Details Care Team Description Date Type Department Owen Dickens MD [address] [facility] [address] [place], [place] [id number] Other 07/09/2019 Refill [facility] [address] [facility] [address] [place] [address] Social History Date Tobacco Use [...]
--- OUTSIDE RECORDS SUMMARY | 2019-08-31 23:31 | XMS REPORT | Encounter Summary ---
Author Author [facility] Organization [facility] Address Unknown Phone Unavailable Care Team Providers Care Political Analyst Name Role Phone Yulissa Zapata PCP Reason for Referral * Consultation (Urgent) Referred By Contact Referred To Contact Status Reason Specialty Diagnoses [place] [address] [facility] [address] [place] [address] Damon Gallegos MD [address] [facility] [address] [place] [address] Authorized Specialty Services Gastroenterology Diagnoses Required Esophageal dysphagia Gastroesophageal reflux disease with esophagitis Encounter Details Care Team Description Date Type Department Yary Nelson RN 04/13/2019 Telephone [facility] [address] [facility] [address] [place] [address] Social History Date Tobacco Use Types Packs/Day [...] Yary Nelson RN - 04/13/2019 10:12 AM DELIVERY TABLE FEEDER I just sent a message to cholesterol that the patient should be referred to [facility] t o discuss an endoscopic procedure to address achalasia. CALL TO PT TO LET HER KNOW ABOUT THE REFERRAL FOR Damon Gallegos MD AND FOR HER TO CALL TO SCHEDULE. SHE ALSO STATED THAT SHE NEED THE PRILOSEC [facility] . ROBERTO ANDREA VERY TABLE FEEDER documented in this encounter Plan of Treatment [...]
--- OUTSIDE RECORDS SUMMARY | 2019-08-31 23:31 | XMS REPORT | Encounter Summary ---
Author Author [facility] Organization [facility] Address Unknown Phone Unavailable Care Team Providers Care Certified Performance Technologist Name Role Phone Yulissa Zapata PCP Reason for Visit * Reason Comments INR Reminder Encounter Details Care Team Description Date Type Department Vickie Bradley RN INR Reminder 07/13/2019 Telephone [place] [address] Social History Date Tobacco Use Types Packs/Day [...]
--- OUTSIDE RECORDS SUMMARY | 2019-08-31 23:31 | XMS REPORT | Encounter Summary ---
Author Author [facility] Organization [facility] Address Unknown Phone Unavailable Care Team Providers Care Pool Nurse Name Role Phone Yulissa Zapata PCP Encounter Details Care Team Description Date Type Department Lorie Dubois LPN intermediate project manager current use of anticoagulant t herapy; Paroxysmal atrial fibrillation (HCC); Atrial flutter, unspecified type (HCC) 04/06/2019 Anticoag visit [facility] [address] [place] [address] [address] [place] [address] Social History Date Tobacco Use Types Packs/Day [...] Liudmila Zarate APRN - 04/06/2019 2:38 PM 6TH GRADE TEACHER I have reviewed the INR result and agree with the outlined warfarin dosing recom mendations. 6TH GRADE TEACHER * Lorie Dubois LPN - 04/06/2019 2:38 PM 6TH GRADE TEACHER Pt states she has had maybe one [...] patient confirmed an understanding to all information. 6TH GRADE TEACHER documented in this encounter Plan of Treatment Not on filedocumented as of this encounter Procedures Comments Procedure Name Priority Date/Time Associated Diag nosis PROTIME-INR Routine 04/06/2019 documented in this encounter Results * Protime-INR (04/06/2019) INR 1.5 (A)Comment: start warfarin 2 - 3 1.5mg daily: recheck INR 04/13/19 Specimen Blood documented in this encounter Visit Diagnoses Diagnosis detention current use of anticoagulant therapy Paroxysmal atrial fibrillation (HCC) Atrial fibrillation Atrial flutter, unspecified type (HCC) documented in this encounter
--- OUTSIDE RECORDS SUMMARY | 2019-08-31 23:31 | XMS REPORT | Encounter Summary ---
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 INR POINT ESTIMA TE GOAL is: 2.5. Indications: aflutter, PAF. Patient has been on Coumadin / War farin > than 1 month. Table # 7. Recommend continue 1.5mg daily and recheck INR 3-4-20.-Erica Lopez LPN R MACHINE OPERATOR documented in this encounter Plan [...] Diagnoses Diagnosis Atrial flutter, unspecified type (HCC) jail current use of anticoagulant therapy Paroxysmal atrial fibrillation (HCC) Atrial fibrillation documented in this encounter
--- OUTSIDE RECORDS SUMMARY | 2019-08-31 23:31 | XMS REPORT | Encounter Summary ---
Author Author [facility] Organization [facility] Address Unknown Phone Unavailable Care Team Providers Care Veneer Jointer Helper Name Role Phone Yulissa Zapata PCP Encounter Details Care Team Description Date Type Department Erwin Taylor LPN 03/24/2019 Telephone [facility] [address] [facility] [address] [place] [address] Social History Date Tobacco Use [...] Erwin Taylor LPN - 03/24/2019 4:57 PM FIRESETTER Patient called and left voicemail regarding her [...] drawn. Patient's INR was 5.5 on 03/17/19. SETTER documented in this encounter Plan of Treatment Not on filedocumented as of this encounter Visit Diagnoses Not on filedocumented in this encounter
--- OUTSIDE RECORDS SUMMARY | 2019-08-31 23:31 | XMS REPORT | Encounter Summary ---
Author Author [facility] Organization [facility] Address Unknown Phone Unavailable Care Team Providers Care Technician Inventory Specialist Name Role Phone Yulissa Zapata PCP Encounter Details Care Team Description Date Type Department France Louis LPN long-term current use of anticoagulant t herapy; Paroxysmal atrial fibrillation (HCC); Atrial flutter, unspecified type (HCC) 02/26/2019 Anticoag visit [facility] [address] [facility] [address] [place] [address] Social History Date Tobacco Use Types Packs/Day [...] France Louis LPN - 02/26/2019 2:13 PM GOLF BALL INSPECTOR INR checked with home monitor [facility] Per [facility] AC Guideline: Afib: Table 7 chart 2.3-2.8:INR 2.5--recommend: cont. mary ann ing warfarin 2.5 mg every Mon, Wed, Fri: 1.5 mg all other days: retest in 2 week s 03.12.2019.---- Spoke with pt regarding INR dosing and recommendations, pt v/u. LET BALL INSPECTOR documented in this encounter Plan of Treatment [...] documented in this encounter Visit Diagnoses Diagnosis long-term current use of anticoagulant therapy Paroxysmal atrial fibrillation (HCC) Atrial fibrillation Atrial flutter, unspecified type (HCC) documented in this encounter
--- OUTSIDE RECORDS SUMMARY | 2019-08-31 23:31 | XMS REPORT | Encounter Summary ---
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 ESSIONAL NURSE documented in this encounter Plan of Treatment [...] Diagnoses Diagnosis Atrial flutter, unspecified type (HCC) terminal supervisor current use of anticoagulant therapy Paroxysmal atrial fibrillation (HCC) Atrial fibrillation documented in this encounter
--- OUTSIDE RECORDS SUMMARY | 2019-08-31 23:31 | XMS REPORT | Encounter Summary ---
Author Author [facility] Organization [facility] Address Unknown Phone Unavailable Care Team Providers Care Personal Care Home Administrator Name Role Phone Yulissa Zapata PCP Reason for Visit * Reason Comments INR Reminder 1st Attempt Encounter Details Care Team Description Date Type Department Kristyn Basurto PA-C [address] [place] [address] [phone] INR Reminder (1st Attempt ) 05/14/2019 Telephone [facility] [address] [place] [address] [address] [place] [address] Social History Date Tobacco Use Types Packs/Day [...] - Nilson Holguin - 05/14/2019 8:18 AM REGIONAL DEDICATED TRUCK DRIVER Called pt Left Detail Message on VML for a return call in regards to INR being p ast due. TQ ONAL DEDICATED TRUCK DRIVER documented in this encounter Plan of Treatment Not on filedocumented as of this encounter Visit Diagnoses Not on filedocumented in this encounter
--- OUTSIDE RECORDS SUMMARY | 2019-08-31 23:31 | XMS REPORT | Encounter Summary ---
Author Author [facility] Organization [facility] Address Unknown Phone Unavailable Care Team Providers Care Waterworks Employee Name Role Phone Yulissa Zapata PCP Reason for Visit * Reason Comments INR Reminder 1st Attempt Encounter Details Care Team Description Date Type Department Aleksander Heller, JOSUE [address] [place] [address] [phone] INR Reminder (1st Attempt ) 03/13/2019 Telephone [facility] [facility] [address] [place] [address] Social History Date Tobacco Use Types Packs/Day [...] - Nilson Holguin - 03/13/2019 10:05 AM INSTRUCTIONAL MATERIAL DIRECTOR Called pt Left Detail Message on VML for a return call in regards to INR being p ast due. TQ RUCTIONAL MATERIAL DIRECTOR documented in this encounter Plan of Treatment Not on filedocumented as of this encounter Visit Diagnoses Not on filedocumented in this encounter
--- OUTSIDE RECORDS SUMMARY | 2019-08-31 23:31 | XMS REPORT | Encounter Summary ---
Author Author [facility] Organization [facility] Address Unknown Phone Unavailable Care Team Providers Care Patriot Missile Air Defense Artillery Name Role Phone Yulissa Zapata PCP Reason for Visit * Reason Comments INR Reminder 1st Attempt Encounter Details Care Team Description Date Type Department Kalli Wiggins NP [address] [place] [address] [phone] INR Reminder (1st Attempt ) 04/14/2019 Telephone [facility] [address] [place] [address] Social History Date Tobacco Use Types Packs/Day [...] - Nilson Holguin - 04/14/2019 8:24 AM HOT KNIFE CUTTER Called pt stated that she was traveling yesterday but will be getting INR [place] sometime today 04/14/2019. TQ KNIFE CUTTER documented in this encounter Plan of Treatment Not on filedocumented as of this encounter Visit Diagnoses Not on filedocumented in this encounter
--- OUTSIDE RECORDS SUMMARY | 2019-08-31 23:31 | XMS REPORT | Encounter Summary ---
Author Author [facility] Organization [facility] Address Unknown Phone Unavailable Care Team Providers Care Travel Clerk Name Role Phone Yulissa Zapata PCP Reason for Referral * Surgical (Routine) Referred By Contact Referred To Contact Status Reason Specialty Diagnoses / Procedures Justin De La Torre MD [address] [place] [address] [facility] [address] [place] [address] Closed Gastroenterology Diagnoses Esophageal dysphagia Gastroesophageal reflux disease, esophagitis presence not specified P rocedures Motility study, esophageal Encounter Details Care Team Description Date Type Department Justin De La Torre MD [address] [place] [address] [phone] Esophageal dysphagia; Gastroesophageal reflux disease, esophagitis presence not specified 03/16/2019 [facility] [address] [place] [address] Social History Date Tobacco Use Types Packs/Day [...] Comments Vital Sign 131/77 03/16/2019 12:42 PM PULLBOAT ENGINEER Blood Pressure 60 03/16/2019 12:42 PM PULLBOAT ENGINEER Pulse 35.9 C (96.7 F) 03/16/2019 12:42 PM PULLBOAT ENGINEER Temperature 20 03/16/2019 12:42 PM PULLBOAT ENGINEER Respiratory Rate 96% 03/16/2019 12:42 PM PULLBOAT ENGINEER Oxygen Saturation - - Inhaled Oxygen Concentration 88.9 kg (196 lb) 03/16/2019 12:42 PM PULLBOAT ENGINEER Weight 165.1 cm (5' 5") 03/16/2019 12:42 PM PULLBOAT ENGINEER Height 32.62 03/16/2019 12:42 PM PULLBOAT ENGINEER Body Mass Index documented in this encounter Discharge Instructions * Pre-Procedure Instructions* Jewels Chapin RN - 03/09/2019 11:25 AM PULLBOAT ENGINEER Called to confirm appointment for EMS at [facility] on March 16. Nothing to e at after midnight, may have clear liquids until 0900. Arrive at 1230 for proced ure at 1300. May take medications as prescribed Saturday AM. Plan to be at [facility] f or 1-1.5 hours. Does not need to bring a driver education road instructor as she will not be receiving an y sedation. Admission process reviewed. All questions answered, verbalized und erstanding. Instructed to call [phone] for additional questions or concern s. BOAT ENGINEER documented in this encounter Medications at Time [...] Jewels Chapin RN - 03/16/2019 2:16 PM PULLBOAT ENGINEER 1237 Patient received in GI lab for [...] study results. Escorted to lobby for dismissal. BOAT ENGINEER documented in this encounter Plan of Treatment Not on filedocumented as of this encounter Procedures Comments Procedure Name Priority Date/Time Associated Diag nosis [place] ESOPHAGEAL MOTILITY Routine 03/16/2019 Esophag eal dysphagia STUDY, MANOMETRY 4:03 PM PULLBOAT ENGINEER Gastroesophageal re flux disease, esophagitis presence not specified documented in this encounter Results * Motility study, esophageal (03/16/2019 4:03 PM PULLBOAT ENGINEER) Narrative Performed At This result has an attachment that is n ot available. documented in this encounter Visit Diagnoses Diagnosis Esophageal dysphagia Dysphagia, pharyngoesophageal phase Gastroesophageal reflux disease, esopha gitis presence not specified documented in this encounter Administered Medications Action Date Dose Rate Site Medication Order MAR Action 03/16/2019 1:00 PM PULLBOAT ENGINEER 1 application lidocaine (GLYDO) 2 % jelly 1 Given application 1 application, Topical, Once, Mon 0 at 1300, For 1 dose, Pre-op documented in this encounter
--- OUTSIDE RECORDS SUMMARY | 2019-08-31 23:31 | XMS REPORT | Encounter Summary ---
Author Author [facility] Organization [facility] Address Unknown Phone Unavailable Care Team Providers Care Retoucher Photoengraving Name Role Phone Yulissa Zapata PCP Encounter Details Care Team Description Date Type Department Tamica Forrest RN 07/09/2019 Telephone [facility] [address] [place] [address] Social History Date Tobacco Use Types Packs/Day [...] ost out. She is now back from [place] and is having more issues, so is going to call CV lab scheduling to start working on scheduling her ablation. Rx routed pe r pt's request. documented in this encounter Plan of Treatment Not on filedocumented as of this encounter Visit Diagnoses Not on filedocumented in this encounter
--- OUTSIDE RECORDS SUMMARY | 2019-08-31 23:31 | XMS REPORT | Encounter Summary ---
Author Author [facility] Organization [facility] Address Unknown Phone Unavailable Care Team Providers Care Hoop Coiler Name Role Phone Yulissa Zapata PCP Reason for Visit * Reason Comments INR Reminder 1st Attempt Encounter Details Care Team Description Date Type Department Liudmila Zarate, FIRE LIEUTENANT [address] [facility] [address] [place], [place] [address] INR Reminder (1st Attempt ) 04/06/2019 Telephone [facility] [address] [facility] [address] [place] [address] Social History Date Tobacco Use Types Packs/Day [...] - Nilson Holguin - 04/06/2019 8:40 AM THERAPY ASSISTANT Called pt stated that she forgot had to take Spouse to Hospital but going to mary ann e it right now and call it in 04/06/2019. TQ APY ASSISTANT documented in this encounter Plan of Treatment Not on filedocumented as of this encounter Visit Diagnoses Not on filedocumented in this encounter
--- OUTSIDE RECORDS SUMMARY | 2019-08-31 23:31 | XMS REPORT | Encounter Summary ---
Author Author [facility] Organization [facility] Address Unknown Phone Unavailable Care Team Providers Care Shell Maker Lockstitch Name Role Phone BennyYulissa rahman PCP Encounter Details Care Team Description Date Type Department Yary Nelson RN Gastroesophageal reflux disease with eso phagitis (Primary Dx) 04/10/2019 Orders Only [facility] [address] [address] Social History Date Tobacco Use Types Packs/Day [...]
--- OUTSIDE RECORDS SUMMARY | 2019-08-31 23:31 | XMS REPORT | Encounter Summary ---
Author Author [facility] Organization [facility] Address Unknown Phone Unavailable Care Team Providers Care Lap Runner Name Role Phone Yulissa Zapata PCP Reason for Visit * Reason Comments Referral status Encounter Details Care Team Description Date Type Department Yary Nelson RN Referral status 04/13/2019 Telephone [facility] [address] [facility] [address] [place], [place] [id number] Social History Date Tobacco Use Types Packs/Day [...] Yary Nelson RN - 04/13/2019 2:37 PM MAIL DISTRIBUTION CLERK ALREADY CALLED PT FOR THE REFERRAL SHE IS IN [place] BUT SHE WILL CALL FOR AN REGULO MEJIA RN DISTRIBUTION CLERK * Telephone Encounter - Yary Nelson RN - 04/13/2019 2:37 PM MAIL DISTRIBUTION CLERK ----- Message from Don Kang NP sent at 04/13/2019 12:41 PM MAIL DISTRIBUTION CLERK ----- Reviewed her case with Dr. De La Torre and Dr. Christy. Dr. Carlson recommends referral to BUBBA Gallegos at the [facility] for their evaluation for POEM pr césar. Chacho Arnold DISTRIBUTION CLERK documented in this encounter Plan of Treatment Not on filedocumented as of this encounter Visit Diagnoses Not on filedocumented in this encounter
--- OUTSIDE RECORDS SUMMARY | 2019-08-31 23:31 | XMS REPORT | Encounter Summary ---
Author Author [facility] Organization [facility] Address Unknown Phone Unavailable Care Team Providers Care Manager Of Tires Sales Name Role Phone Yulissa Zapata PCP Encounter Details Care Team Description Date Type Department Mirna Pratt LPN 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 current use of anticoagulant t herapy; Paroxysmal atrial fibrillation (HCC); Atrial flutter, unspecified type (HCC) 06/24/2019 Anticoag visit [facility] [address] [facility] [address] [place] [address] Social History Date Tobacco Use Types Packs/Day [...] of this encounter Progress Notes * Mirna Partt LPN - 06/24/2019 4:26 PM CDT Pt [...] documented in this encounter Visit Diagnoses Diagnosis retirement current use of anticoagulant therapy Paroxysmal atrial fibrillation (HCC) Atrial fibrillation Atrial flutter, unspecified type (HCC) documented in this encounter
--- OUTSIDE RECORDS SUMMARY | 2019-08-31 23:31 | XMS REPORT | Encounter Summary ---
Author Author [facility] Organization [facility] Address Unknown Phone Unavailable Care Team Providers Care Workers' Compensation Claims Supervisor Name Role Phone Yulissa Zapata PCP Reason for Visit * Reason Comments INR Reminder 1st Attempt Encounter Details Care Team Description Date Type Department Cally Paige, TRANSPORTER RADIOLOGY [address] [facility] [address] [place] [address] [phone] INR Reminder (1st Attempt ) 05/01/2019 Telephone [facility] [address] [facility] [address] [place] [address] Social History Date Tobacco Use Types Packs/Day [...] - Nilson Holguin - 05/01/2019 8:46 AM PULLER THROUGH Called pt stated that she forgot to Check it will be getting Check right now . TQ ER THROUGH documented in this encounter Plan of Treatment Not on filedocumented as of this encounter Visit Diagnoses Not on filedocumented in this encounter
--- OUTSIDE RECORDS SUMMARY | 2019-08-31 23:31 | XMS REPORT | Encounter Summary ---
Author Author [facility] Organization [facility] Address Unknown Phone Unavailable Care Team Providers Care Gas Truck Driver Name Role Phone Yulissa Zapata PCP Encounter Details Care Team Description Date Type Department Mirna Pratt LPN Atrial flutter, unspecified type (HCC); half-way current use of anticoagulant therapy; Paroxysmal atrial fibrillation (HCC) 04/15/2019 Anticoag visit [facility] [address] [facility] [address] [place] [address] Social History Date Tobacco Use Types Packs/Day [...] Mirna Pratt LPN - 04/15/2019 1:35 PM REALTY SPECIALIST Pt testing with home monitor. Table 7. Called pt and left detailed message with recommendations and call back numberDean Meza LPN TY SPECIALIST documented in this encounter Plan of [...] Diagnoses Diagnosis Atrial flutter, unspecified type (HCC) half-way current use of anticoagulant therapy Paroxysmal atrial fibrillation (HCC) Atrial fibrillation documented in this encounter
--- OUTSIDE RECORDS SUMMARY | 2019-08-31 23:31 | XMS REPORT | Encounter Summary ---
Author Author [facility] Organization [facility] Address Unknown Phone Unavailable Care Team Providers Care Food Service Kitchen Supervisor Name Role Phone Yulissa Zapata PCP Reason for Visit * Reason Comments INR Reminder 1st Attempt Encounter Details Care Team Description Date Type Department Lorie Hinojosa, STOCKKEEPER [address] [place] [address] [phone] INR Reminder (1st Attempt ) 04/23/2019 Telephone [facility] [address] [place] [address] Social History Date Tobacco Use Types Packs/Day [...] - Nilson Holguin - 04/23/2019 9:31 AM PLATE FORMER Called pt stated that she didn't know she was suppose to get INR Checked but janiya l get it done shortly and callback asked about phone trouble on Saturday inform ye s had an upgrade. TQ E FORMER documented in this encounter Plan of Treatment Not on filedocumented as of this encounter Visit Diagnoses Not on filedocumented in this encounter
--- OUTSIDE RECORDS SUMMARY | 2019-08-31 23:31 | XMS REPORT | Encounter Summary ---
Author Author [facility] Organization [facility] Address Unknown Phone Unavailable Care Team Providers Care Stock Patcher Name Role Phone Yulissa Zapata PCP Reason for Visit * Reason Comments Results Encounter Details Care Team Description Date Type Department Yary Nelson RN Results 04/09/2019 Telephone [facility] [address] [facility] [address] [place] [id number] Social History Date Tobacco Use Types Packs/Day [...] Yary Nelson RN - 04/09/2019 3:56 PM GAS MAIN AND LINE FITTER Result Notes for Motility study, esophageal Notes recorded by Justin De La Torre MD on 03/24/2019 at 3:05 PM GAS MAIN AND LINE FITTER A difficult study to read. At first [...] with fragment ed peristalsis. Scans on Order [id number] Scan on 03/16/2019 4:04 PM by Jewels [...] I [facility] 4 00 LIST THIS WILL HELP WITH THE COST OF MEDS. ROUTED TO DR Robyn MEJIA RN MAIN AND LINE FITTER documented in this encounter Plan of Treatment Not on filedocumented as of this encounter Visit Diagnoses Not on filedocumented in this encounter
--- OUTSIDE RECORDS SUMMARY | 2019-08-31 23:31 | XMS REPORT | Encounter Summary ---
Author Author [facility] Organization [facility] Address Unknown Phone Unavailable Care Team Providers Care Node Js Developer Name Role Phone Yulissa Zapata PCP Encounter Details Care Team Description Date Type Department Lian Pablo LPN intermediate current use of anticoagulant t herapy; Paroxysmal atrial fibrillation (HCC); Atrial flutter, unspecified type (HCC) 04/01/2019 Anticoag visit [facility] [address] [place] [address] [address] [place] [address] Social History Date Tobacco Use Types Packs/Day [...] Lian Pablo LPN - 04/01/2019 3:04 PM MD PHYSICIAN DERMATOLOGIST Kristyn Cotto NP [facility] [...] for DOAC? Please advise. Thanks EP: [id number]." PHYSICIAN DERMATOLOGIST * Lian Pablo LPN - 04/01/2019 3:04 PM MD PHYSICIAN DERMATOLOGIST Table 7. Spoke to patient regarding results [...] confirmed an understanding t o all information. PHYSICIAN DERMATOLOGIST documented in this encounter Plan of Treatment [...] documented in this encounter Visit Diagnoses Diagnosis intermediate current use of anticoagulant therapy Paroxysmal atrial fibrillation (HCC) Atrial fibrillation Atrial flutter, unspecified type (HCC) documented in this encounter
--- OUTSIDE RECORDS SUMMARY | 2019-08-31 23:32 | XMS REPORT | Encounter Summary ---
Author Author [facility] Organization [facility] Address Unknown Phone Unavailable Care Team Providers Care Optician Apprentice Name Role Phone Yulissa Zapata PCP Encounter Details Care Team Description Date Type Department Tamika Jason MA 02/16/2019 Telephone [facility] [address] [place] [address] [place] [id number] Social History Date Tobacco Use Types Packs/Day [...] Tamika Jason MA - 02/16/2019 8:17 AM SOFTWARE SUPPORT TECHNICIAN LVM for the pt to return to my call to schedule f/u visit with Chris. Crockett WARE SUPPORT TECHNICIAN documented in this encounter Plan of Treatment Not on filedocumented as of this encounter Visit Diagnoses Not on filedocumented in this encounter
--- OUTSIDE RECORDS SUMMARY | 2019-08-31 23:32 | XMS REPORT | Encounter Summary ---
Author Author [facility] Organization [facility] Address Unknown Phone Unavailable Care Team Providers Care Weatherstrip Machine Operator Name Role Phone Yulissa Zapata PCP Reason for Referral * Auth/Cert (Routine) Referred By Contact Referred To Contact Status Reason Specialty Diagnoses / Procedures Waldo Chavarria MD [address] [facility] [place] [address] New Request Procedures Case request operating room: ESOPHAGOGASTRODUOD ENOSCOPY (EGD) * Auth/Cert (Routine) Referred By Contact Referred To Contact Status Reason Specialty Diagnoses / Procedures Waldo Chavarria MD [address] [facility] [place] [address] New Request Procedures Case request operating room: ESOPHAGOGASTRODUOD ENOSCOPY (EGD) * Auth/Cert (Routine) Referred By Contact Referred To Contact Status Reason Specialty Diagnoses / Procedures Rosendo King MD [address] [place] [place] [address] New Request Procedures Case request operating room: ESOPHAGOGASTRODUOD ENOSCOPY (EGD) Reason for Visit * Auth/Cert (Routine) Referred By Contact Referred To Contact Status Reason Specialty Diagnoses / Procedures Rosendo King MD [address] [facility] [place] [address] New Request Procedures Case request operating room: ESOPHAGOGASTRODUOD ENOSCOPY (EGD) Encounter Details Care Team Description Date Type Department Hospitalist, Physician Lennox Taylor MD [address] [place] [address] [phone] Marcus Bush DO [address] [place] [address] [phone] Paroxysmal atrial fibrillation (HCC) (Pr imary Dx); Dysphagia, unspecified type; Eosinophilic esophagitis; Encounter for consultation 02/07/2019 [facility] al - Encounter [address] 02/13/2019 [place] [address] Social History Date Tobacco Use Types Packs/Day [...] Comments Vital Sign 109/64 02/13/2019 1:36 PM METALLURGICAL ANALYST Blood Pressure 63 02/13/2019 1:36 PM METALLURGICAL ANALYST Pulse 36.7 C (98 F) 02/13/2019 11:50 AM METALLURGICAL ANALYST Temperature 20 02/13/2019 11:50 AM METALLURGICAL ANALYST Respiratory Rate 95% 02/13/2019 11:50 AM METALLURGICAL ANALYST Oxygen Saturation - - Inhaled Oxygen Concentration 90.4 kg (199 lb 4.8 oz) 02/13/2019 4:11 AM METALLURGICAL ANALYST Weight 165.1 cm (5' 5") 02/07/2019 11:28 PM METALLURGICAL ANALYST Height 33.17 02/07/2019 11:28 PM METALLURGICAL ANALYST Body Mass Index documented in this encounter Discharge Summaries * Marcus Bush, - 02/13/2019 11:21 AM METALLURGICAL ANALYST [facility] BILLING SUPERVISOR Hospitalist Discharge Summary Patient Name: Pau Mccabe [...] PCP was unable to re ach the [facility] GI clinic so she saw a different [...] little water so she was transferred to [facility]. During EGD Attempt 02/09/2019, she appeared to aspirate secondary to retained flu id and food in her esophagus. Repeat EGD done 02/10/19 did not find evidence of retained food or stricture. GI suspects achalasia and recommends outpatient man ometry at [facility] as outpatient. She will be started [...] signed by: Marcus Bush 02/13/2019 11:21 AM LLURGICAL ANALYST documented in this encounter Discharge Instructions * Appointments* Sharon Baxter RN - 02/11/2019 9:38 AM METALLURGICAL ANALYST If you need to reschedule your Cardiology appointment, please call our [facility] department at [phone]. Thank you! LLURGICAL ANALYST * Attachments The following attachments cannot be sent through Care Everywhere.* Piperacillin; Tazobactam injection (Japanese) documented in this encounter Medications at Time [...] Waldo Chavarria MD - 02/13/2019 9:01 AM METALLURGICAL ANALYST GI Progress Note NAME: Pau Mccabe ADMISSION [...] No results found for this or a ms previous visit. No results found for this [...] or edited the final report. READING SITE: [facility] Xr Chest Single View Frontal Result Date: 02/09/2019 1. Findings are suggestive of bronchitis with right basilar pneumonia/aspiration. READING SITE: [facility] ENDOSCOPY EGD 02/10/19 Corrugated mucosa and [...] had dilation at an outside hospital and [place], [place]. Endoscopy report reviewed and jair ent had empiric balloon dilation to 16.5 mm for suspected achalasia at the [facility]. She was also started on Cardizem that she did not tolerate due to hypo tension. EGD done on 02/10 showed no signs of strictures, poor peristalsis may be suggesti ve of achalasia. Due to persistent symptoms, EGD was repeated on 02/12 and Botox injection was don e above the GE junction. [facility] was contacted and patient to [...] to Dr. Gallegos still be at the [facility] to discuss poor oral endoscopic myotomy. * Marcus Bush, DO - 02/12/2019 12:02 PM METALLURGICAL ANALYST [facility] BILLING SUPERVISOR Hospitalist Progress Note Patient Name: Pau Mccabe [...] Her PCP was unable to reach the [facility] GI clinic so she saw a different [...] little water so she was transferred to [facility]. During EGD Attempt 02/09/2019, she appeared to aspirate secondary to retained flu id and food in her esophagus. Repeat EGD done 02/10/19 did not find evidence of retained food or stricture. GI suspects achalasia and recommends outpatient man ometry at [facility] as outpatient. She will be started [...] index is 33.5 kg/m. Marcus Bush DO [facility] Hospitalist Program Please page through Scholrly Messaging using template format. Electronically signed by Marcus Bush 02/12/2019 12:02 PM LLURGICAL ANALYST * Marcus Bush DO - 02/11/2019 1:33 PM METALLURGICAL ANALYST [facility] BILLING SUPERVISOR Hospitalist Progress Note Patient Name: Pau Mccabe [...] Her PCP was unable to reach the [facility] GI clinic so she saw a different [...] little water so she was transferred to [facility]. During EGD Attempt 02/09/2019, she appeared to aspirate secondary to retained flu id and food in her esophagus. Repeat EGD done 02/10/19 did not find evidence of retained food or stricture. GI suspects achalasia and recommends outpatient man ometry at [facility] as outpatient. She will be started [...] index is 33.23 kg/m. Marcus Bush DO [facility] Hospitalist Program Please page through Voalte Messaging using template format. Electronically signed by Marcus Bush 02/11/2019 1:33 PM LLURGICAL ANALYST * Waldo Chavarria MD - 02/11/2019 1:16 PM METALLURGICAL ANALYST GI Progress Note NAME: Pau Mccabe ADMISSION [...] No results found for this or a ms previous visit. No results found for this [...] edited the final report. READ[facility] Xr Chest Single View Frontal Result Date: 02/09/2019 1. Findings are suggestive of bronchitis with right basilar pneumonia/aspiration. READING SITE: [facility] ENDOSCOPY EGD 02/10/19 Corrugated mucosa and [...] had dilation at an outside hospital and [place], [place]. There was also reportedly esophage al [...] diet and undergo esophageal motility study at [facility] as an outpatient. If this is not feasible, repeat upper endoscopy with botulinu m toxin injection to lower esophageal sphincter region will be performed tomorro w in an effort to allow hospital discharge. * Kristina Conrad NP - 02/10/2019 4:07 PM METALLURGICAL ANALYST Attempt to see patient today x2 this afternoon. Out of room for EGD. Will plan t o see patient in AM. LLURGICAL ANALYST * Marcus Bush DO - 02/10/2019 3:22 PM METALLURGICAL ANALYST [facility] BILLING SUPERVISOR Hospitalist Progress Note Patient Name: Pau Mccabe [...] Her PCP was unable to reach the [facility] GI clinic so she saw a different [...] little water so she was transferred to [facility]. During EGD Attempt 02/09/2019, she appeared [...] index is 33.23 kg/m. Marcus Bush DO [facility] Hospitalist Program Please page through Voalte Messaging using template format. Electronically signed by Marcus Bush 02/10/2019 3:22 PM LLURGICAL ANALYST Katheryn Ayers - 02/10/2019 10:50 AM METALLURGICAL ANALYST Pau was sitting in bed visiting with her daughter Althea and [id number] Maryjane, the room was well lite when [...] Katheryn Aguilar, 02/10/2019 1:31 PM Pager Number: [phone] LLURGICAL ANALYST * Marcus Bush DO - 02/09/2019 12:58 PM METALLURGICAL ANALYST [facility] BILLING SUPERVISOR Hospitalist Progress Note Patient Name: Pau Mccabe [...] Her PCP was unable to reach the [facility] GI clinic so she saw a different [...] little water so she was transferred to [facility]. Assessment/Plan: * Esophageal dysphagia Concern for [...] index is 33.23 kg/m. Marcus Bush DO [facility] Program Please page through Voalte Messaging using template format. Electronically signed by Marcus Bush 02/09/2019 12:58 PM LLURGICAL ANALYST * Jenae Suarez, PharmD - 02/09/2019 9:58 AM METALLURGICAL ANALYST Pharmacist Warfarin Dosing Sign-Off Note Warfarin is no longer an active order. Pharmacy will sign-off on further dosing at this time. If warfarin therapy is to be resumed, an order for Pharmacy to Dos e Warfarin needs to be resubmitted to pharmacy services for further management. Jenae Suarez PharmD C Kwame Carbajal PharmD - 02/08/2019 11:41 AM METALLURGICAL ANALYST Pharmacist Warfarin Dosing Progress Note Pau Mccabe [...] be managed by kaylyn lagunas unless re-consulted. LLURGICAL ANALYST * Lennox Taylor MD - 02/08/2019 6:43 AM METALLURGICAL ANALYST [facility] Hospitalist - Progress Note Patient Name: Pau Mccabe Account No: [id number] Date of : 1950 Date of Admission: [...] results (as indicated), current inpatient medications and ground support equipment assembler notes with pertainent findings noted within the [...] details regarding this patients treatment plan. Room: [address] [place] [address] Diet: CLD, NPO at midnight for possible [...] chlorid e in water Dany Briceño MD [facility] Please page through physician paging. . I saw and examined the patient with Dr Dany Briceño MD. I agree with history , exam, assessment and plan as documented in resident's note. I have edited as a ppropriate to reflect my findings. EGD tomorrow and possibly discharge after that LLURGICAL ANALYST * Paul Scott, PharmD - 02/08/2019 3:19 AM METALLURGICAL ANALYST Pharmacist Warfarin Dosing Progress Note Pau Mccabe [...] be managed by kaylyn lagunas unless re-consulted. LLURGICAL ANALYST documented in this encounter H&P Notes * David Ma MD - 02/12/2019 1:09 PM METALLURGICAL ANALYST PRE ENDOSCOPIC PROCEDURE HISTORY AND PHYSICAL Procedure: [...] ESOPHAGOGASTRODUODENOSCOPY, USING BIOPSY; Surgeon: Randi Stewart; Location: [facility] GI; Service: Gastroenterology; Laterality: N/A; ESOPHAGOGASTRODUODENOSCOPY (EGD) N/A 02/09/2019 Procedure: ESOPHAGOGASTRODUODENOSCOPY (EGD); Surgeon: Brent Tao MD; Locati on: [facility] GI; Service: Gastroenterology; Laterality: N/A; ESOPHAGOGASTRODUODENOSCOPY (EGD) N/A 02/10/2019 Procedure: ESOPHAGOGASTRODUODENOSCOPY (EGD); Surgeon: Anthony Camilo MD; Location: [facility] GI; Service: Gastroenterology; Laterality: N/A; FOOT SURGERY [...] "stuck" Essential hypertension GERD (gastroesophageal reflux disease) 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 use of [...] Anthony Parks MD - 02/10/2019 3:09 PM METALLURGICAL ANALYST PRE ENDOSCOPIC PROCEDURE HISTORY AND PHYSICAL Procedure: [...] ESOPHAGOGASTRODUODENOSCOPY, USING BIOPSY; Surgeon: Randi Stewart; Location: [facility] GI; Service: Gastroenterology; Laterality: N/A; ESOPHAGOGASTRODUODENOSCOPY (EGD) N/A 02/09/2019 Procedure: ESOPHAGOGASTRODUODENOSCOPY (EGD); Surgeon: Brent Tao MD; Locati on: [facility] GI; Service: Gastroenterology; Laterality: N/A; FOOT SURGERY [...] "stuck" Essential hypertension GERD (gastroesophageal reflux disease) MCFP current use of antiarrhythmic drug MCFP current use of anticoagulant therapy Mitral [...] signed by Anthony Camilo 02/10/2019 3:10 PM LLURGICAL ANALYST * Brent Tao MD - 02/09/2019 10:08 AM METALLURGICAL ANALYST PRE ENDOSCOPIC PROCEDURE HISTORY AND PHYSICAL Procedure: [...] ESOPHAGOGASTRODUODENOSCOPY, USING BIOPSY; Surgeon: Randi Stewart; Location: [facility] GI; Service: Gastroenterology; Laterality: N/A; FOOT [...] "stuck" Essential hypertension GERD (gastroesophageal reflux disease) 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 She denies ENRIQUEZ, CP, SOA, n/v/d/c, abd pain, fever, chills and urinary symptoms. ROS A 10-point review of systems was completed and was negative except as noted abov e. 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; Service: Gastroenterology; Laterality: N/A; FOOT [...] treatment as noted above. Joseline Marrero MD [facility] Please page through physician paging. . LLURGICAL ANALYST documented in this encounter Consult Notes * Chelsea Delgado MD - 02/09/2019 2:33 PM METALLURGICAL ANALYST Associated Order(s): IP CONSULT TO CARDIOLOGY [facility] Cardiology Consult Date: 02/09/2019 Established [facility] patient: Yes: Provider: Willow Last date seen: [...] NSR. Patient anticoagulated with warfarin managed by [facility]. 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 READING SITE: [facility] EKG: Normal Sinus Rhythm at 59 [...] Family Another healthcare provider Patient's daughter present LLURGICAL ANALYST * Jenna Borges MD - 02/08/2019 12:22 PM METALLURGICAL ANALYST Associated Order(s): IP CONSULT TO GASTROENTEROLOGY [facility] GI Inpatient New Consult Note Name: Pau [...] had dilation at an outside hospital and [place], [place]. 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; Service: Gastroenterology; Laterality: N/A; FOOT [...] Date MCV 97 02/08/2019 MCH 33 02/08/2019 [facility] 34 02/08/2019 MPV 11.1 02/08/2019 RDW 12.5 [...] had dilation at an outside hospital and [place], [place]. There was also reportedly esophage al [...] this past week from outside hospital at [facility] in [place], [place] -NPO at midnight -Hold warfarin, if [...] Fellow Disclaimer: This note was dictated using Qbaka software and while checked, it m ay have unintentional errors. ATTENDING ADDENDUM I saw and examined the patient with the fellow and agree with the note as below. She has a history of EoE diagnosed by Dr. Balderas. She has recurrence of dyspha sil. No concern for food bolus impaction. Will plan for EGD tomorrow. Jenna Borges MD LLURGICAL ANALYST documented in this encounter Nursing Notes * Lissette Fairbanks RN - 02/12/2019 3:59 PM METALLURGICAL ANALYST Returned from GI procedure. HR a-fib VR 130 Inc of stool. Extensive clean up in bed on monitor. Cardiac medications given, with pt sitting side of bed. T * Lissette Fairbanks RN - 02/12/2019 10:33 AM METALLURGICAL ANALYST GI MD at bedside. T * Chelsea Miller, ZULLY - 02/09/2019 12:03 PM METALLURGICAL ANALYST Stabilized, egd stopped after noted food/fluid in esophagus LLURGICAL ANALYST * Kayley Herrera RN - 02/08/2019 9:00 AM METALLURGICAL ANALYST With AM vitals, O2 noted to be 74%. Patient has gel nailpolish on fingernails & toenails. Difficulty getting accurate read on earlobe. Patient reporting mild S OA but carrying on conversation & appeared to be in no distress. Applied 2 L NC & O2 reading 96%. Updated med-teaching resident of this during morning rounding. Patient resting comfortably, reporting no further SOA. LLURGICAL ANALYST documented in this encounter Miscellaneous Notes * Nursing Discharge - Zohaib Helton RN - 02/13/2019 2:10 PM METALLURGICAL ANALYST Nursing Discharge Note Patient is stable for discharge. Reviewed discharge instructions and patient ve rbalized understanding, had no further questions, and left the unit in wheel galo ir with staff. Patient traveling home with in personal Vehicle. Patient/family satisfied with progress made towards goals and ready for discharg e. LLURGICAL ANALYST * Care Progression Final DC Note - Dayami Bennett RN - 02/13/2019 11:49 AM METALLURGICAL ANALYST Final Discharge Note Final Discharge Disposition: 01-Home Self Care Discharge goal and plan is mutually agreed upon by patient Patient will discharge to: home, self care Transportation: pts family Discharge Time: appr 12-1300 Special Instructions: none LLURGICAL ANALYST * End of Shift Note - Rula Ball RN - 02/13/2019 6:02 AM METALLURGICAL ANALYST End of Shift Summary and Plan of [...] EGD 02/08/19, mo nitor tolerance of CLD. LLURGICAL ANALYST * End of Shift Note - Lissette Fairbanks RN - 02/12/2019 5:22 PM METALLURGICAL ANALYST End of Shift Summary and Plan of [...] Chau Christy MD - 02/12/2019 2:02 PM METALLURGICAL ANALYST EGD Report Date: 02/12/2019 2:02 PM Patient Name: PAU MCCABE DOB (age): 1950 (69) Gender: Female Endoscopist(s): MD David Landrum MD Instrument(s): Scope # 9 - EG - 600WR - Regular - Fujsunithan([id number]) Anesthesia Provider: Rick Sutherland MD Nurse(s): Neil [...] being detected during the procedure. The patient/patients union contract representative appeared to understand the procedure, the potential complications, and alternatives; had the opportunity to ask questions; and informed consent was obtained. The risk/benefit ratio was deemed appropriate to proceed with the procedure. General Anesthesia was administered by nurse sales utility representative. Continuous pulse oximetry and blood pressure monitoring [...] Rula Ball, ZULLY - 02/12/2019 5:39 AM METALLURGICAL ANALYST End of Shift Summary and Plan of [...] EGD 02/08/19, mo nitor tolerance of CLD. LLURGICAL ANALYST * End of Shift Note - Aislinn Zhong RN - 02/11/2019 5:05 PM METALLURGICAL ANALYST End of Shift Summary and Plan of [...] EGD 02/08/19, mo nitor tolerance of CLD. LLURGICAL ANALYST * Assessment & Plan Note - Marcus Bush DO - 02/11/2019 1:28 PM METALLURGICAL ANALYST Associated Problem(s): Aspiration pneumonia (HCC) Secondary to retained esophogeal food: -completed 3/4 days of zosyn, now has diarrhea -change to rocephin / flagyl to see if less affect on gut -repeat procalcitonin trending down LLURGICAL ANALYST * Sign-Off Note - Kristina Conrad, PROP SAWYER - 02/11/2019 9:18 AM METALLURGICAL ANALYST [facility] Sign-Off Note Name: Pau Mccabe CPI: [id number] Date of : 1950 Primary care physician: [...] y.o. female who is currently admitted to [facility] under the Hospitalist service. We were consulted [...] has not required diuresis this admission. - CORPORATION SECRETARY medications include Lasix 40mg daily although patient [...] assistance to the care of this patient. LLURGICAL ANALYST * Provider Clarification Response - Marcus Bush, DO - 02/11/2019 8:01 AM METALLURGICAL ANALYST [facility] Query Respons e Note PATIENT: PAU MCCABE : 1950 ADMIT DATE: 02/07/2019 11:25 PM DISCH DATE: RESPONDING PROVIDER #: [id number] RESPONSE TEXT: The patient has aspiration pneumonia. [...] by: MARCUS VAUGHAN DO 02/11/2019 8:00 AM LLURGICAL ANALYST * End of Shift Note - Tomasa Foreman RN - 02/11/2019 6:44 AM METALLURGICAL ANALYST End of Shift Summary and Plan of [...] EGD 02/08/19, mo nitor tolerance of CLD. LLURGICAL ANALYST * End of Shift Note - Kayley Herrera RN - 02/10/2019 7:49 PM METALLURGICAL ANALYST End of Shift Summary and Plan of [...] EGD 02/08/19, mo nitor tolerance of CLD. LLURGICAL ANALYST * Nutrition Note - Lilliam Lai RD - 02/10/2019 11:50 AM METALLURGICAL ANALYST Nutrition Assessment [facility] DIAGNOSIS & INTERVENTION: DIAGNOSIS 1 Nutrition [...] Usual Body Weight: 96.2 kg (212 lb) [place] Body Weight: 56.7 kg (125 lb) % [place] Body Weight: 159 % % Weight Loss [...] Estimated Energy Needs Total Energy Estimated Needs: 2059-8333 kcal/day Method for Estimating Needs: MSJ 1.2-1.4 Estimated Protein Needs Total Protein Estimated Needs: 57-68 gm/day Method for Estimating Needs: 1.0-1.2 gm/day Fluid Needs Total Fluid Estimated Needs: per MD MONITORING/EVALUATION: 1. Food & Nutrition Related Hx: Energy Intake 2. Anthropometrics: Weight change 3. Biochemical: Nutrition related labs 4. Nutrition-focused physical findings: GI function, skin Electronically signed by Lilliam Lai 02/10/2019 11:50 AM LLURGICAL ANALYST * Operative Note - Anthony Camilo MD - 02/10/2019 9:00 AM METALLURGICAL ANALYST EGD Report Date: 02/10/2019 9:00 AM Patient Name: PAU PANG (age): 1950 (69) Gender: Female Endoscopist(s): Anthony Camilo MD Instrument(s): Scope # 3 - EG - 600WR - Regular - Fujinon([id number]) Anesthesia Provider: Lorie Yadav MD Nurse(s): Lorena Moran, supervisor tubing: Per Johnston CRNA ASA Information: See Anesthesia [...] being detected during the procedure. The patient/patients union contract representative appeared to understand the procedure, the [...] 02/10/2019 4:02:20 PM by Anthony Camilo MD LLURGICAL ANALYST * End of Shift Note - Julio C Pineda RN - 02/10/2019 7:37 AM METALLURGICAL ANALYST End of Shift Summary and Plan of [...] EGD 02/08/19, mo nitor tolerance of CLD. LLURGICAL ANALYST * Care Progression Initial Assessment - Dayami Bennett, ZULLY - 02/09/2019 1:27 PM METALLURGICAL ANALYST Care Progression Initial Assessment Note Admit for [...] MD and mukul es their medications from [facility] [id number] [address] [facility] [address] [facility] [address] [facility] Outpatient Pharmacy [address] [place] [address] [facility] [address] [address] LEATHER CARVER [phone] LLURGICAL ANALYST * End of Shift Note - Kayley Herrera RN - 02/09/2019 12:38 PM METALLURGICAL ANALYST End of Shift Summary and Plan of [...] EGD 02/08/19, onel dengor tolerance of CLD. LLURGICAL ANALYST * Operative Note - Brent Tao MD - 02/09/2019 9:30 AM METALLURGICAL ANALYST EGD Report Date: 02/09/2019 9:30 AM Patient Name: PAU MCCABE (age): 1950 (69) Gender: Female Endoscopist(s): MD David Alonso MD Instrument(s): Scope # 6 - EG - 600WR - Regular - Fujinon([id number]) Anesthesia Provider: Dayton Hopkins MD Nurse(s): Chelsea [...] being detected during the procedure. The patient/patients union contract representative appeared to understand the procedure, the [...] 12:04:07 PM by MD David Alonso MD LLURGICAL ANALYST * End of Shift Note - Jono Negron RN - 02/09/2019 5:31 AM METALLURGICAL ANALYST End of Shift Summary and Plan of [...] EGD 02/08/19, mo nitor tolerance of CLD. LLURGICAL ANALYST * End of Shift Note - Kayley Herrera RN - 02/08/2019 5:18 PM METALLURGICAL ANALYST End of Shift Summary and Plan of [...] tomorrow. Faxed request for medical records to [facility] [place], [place]. NSR on telemetry. Continuing to monitor. [...] EGD 02/08/19, mo nitor tolerance of CLD. LLURGICAL ANALYST * End of Shift Note - Jono Negron RN - 02/08/2019 4:47 AM METALLURGICAL ANALYST End of Shift Summary and Plan of [...] Stay Nursing goal for hospital stay: Plan: LLURGICAL ANALYST * Assessment & Plan Note - Marcus Bush, - 02/08/2019 12:56 AM METALLURGICAL ANALYST Associated Problem(s): Paroxysmal atrial fibrillation (HCC) Currently in sinus rhythm: -continue dofetilide as PO allows -continue to hold warfarin as needs repeat EGD today LLURGICAL ANALYST * Assessment & Plan Note - Marcus Bush DO - 02/08/2019 12:56 AM METALLURGICAL ANALYST Associated Problem(s): Essential hypertension Continue coreg LLURGICAL ANALYST * Assessment & Plan Note - Marcus Bush DO - 02/08/2019 12:55 AM METALLURGICAL ANALYST Associated Problem(s): Depression Continue Paxil LLURGICAL ANALYST * Assessment & Plan Note - Marcus Bush DO - 02/08/2019 12:54 AM METALLURGICAL ANALYST Associated Problem(s): Esophageal dysphagia Concern for esophageal stricture s/p dilatation at outside hospital: -history of eosinophilic esophagitis -failed EGD attempt with possible aspiration 02/09 -repeat EGD 02/10/19 without stricture, clinical concern for achalasia -failed trial of clear liquid diet -plan Botox today as did not tolerate PO LLURGICAL ANALYST * Hospital Course - Marcus Bush DO - 02/08/2019 12:45 AM METALLURGICAL ANALYST 69 y.o. female with h/o Afib on [...] Her PCP was unable to reach the [facility] GI clinic so she saw a different [...] little water so she was transferred to [facility]. During EGD Attempt 02/09/2019, she appeared to aspirate secondary to retained flu id and food in her esophagus. Repeat EGD done 02/10/19 did not find evidence of retained food or stricture. GI suspects achalasia and recommends outpatient man ometry at [facility] as outpatient. She will be started on clear liquid diet and initially tolerated but then could not keep down even pills. She continues to bring up frothy substance. LLURGICAL ANALYST documented in this encounter Plan of Treatment Not on filedocumented as of this encounter Procedures Comments Procedure Name Priority Date/Time Associated Diag nosis ESOPHAGOGASTRODUODENOSCOP 02/12/2019 Achalasia Y, WITH BOTULINUM TOXIN 2:42 PM METALLURGICAL ANALYST INJECTION Special Needs Dysphagia. Plan for Botox injection for suspected achalasia. Consider intubation due to previous aspiration . CLOSTRIDIUM DIFFICILE STAT 02/12/2019 TOXIN BY PCR 10:45 AM METALLURGICAL ANALYST PROTHROMBIN TIME/INR Routine 02/12/2019 1:25 AM METALLURGICAL ANALYST PROCALCITONIN Routine 02/12/2019 1:25 AM METALLURGICAL ANALYST COMPLETE BLOOD COUNT Routine 02/12/2019 1:25 AM METALLURGICAL ANALYST ESOPHAGOGASTRODUODENOSCOP 02/10/2019 Esophageal stricture, Y (EGD) 3:15 PM METALLURGICAL ANALYST needs intubation. Special Needs Esophageal stricture, needs intubation . B12/FOLATE Add-On 02/10/2019 10:00 AM METALLURGICAL ANALYST RENAL PANEL Routine 02/10/2019 9:59 AM METALLURGICAL ANALYST PROTHROMBIN TIME/INR STAT 02/10/2019 9:[address] CHEST W CONTRAST Routine 02/10/2019 9:29 AM METALLURGICAL ANALYST PROCALCITONIN Routine 02/10/2019 2:45 AM METALLURGICAL ANALYST COMPLETE BLOOD COUNT Routine 02/10/2019 2:45 AM METALLURGICAL ANALYST XR CHEST SINGLE VIEW Routine 02/09/2019 FRONTAL 12:26 PM METALLURGICAL ANALYST ESOPHAGOGASTRODUODENOSCOP 02/09/2019 Dysphagia, assess need Y (EGD) 11:40 AM METALLURGICAL ANALYST for dilation Special Needs Dysphagia, assess need for dilation XR OUTSIDE IMAGES FOR Routine 02/09/2019 Encounte r for PACS 7:05 AM METALLURGICAL ANALYST consultation XR ABDOMEN OUTSIDE IMAGES Routine 02/09/2019 [place] for FOR PACS 7:05 AM METALLURGICAL ANALYST consultation PROTHROMBIN TIME/INR Routine 02/08/2019 12:14 PM METALLURGICAL ANALYST ECG Routine 02/08/2019 1:12 AM METALLURGICAL ANALYST PROTHROMBIN TIME/INR Routine 02/08/2019 1:00 AM METALLURGICAL ANALYST COMPREHENSIVE METABOLIC Routine 02/08/2019 PANEL 1:00 AM METALLURGICAL ANALYST CBC AND DIFF (MANUAL DIFF Routine 02/08/2019 IF NECESSARY) 1:00 AM METALLURGICAL ANALYST documented in this encounter Results * Clostridium Difficile Toxin by PCR (02/12/2019 10:45 AM METALLURGICAL ANALYST) C difficile Not DetectedComment: NEGATIVE Not Detected [facility] for C. difficile toxin by PCR Hospita l Lab Specimen Stool Performing Organization Address [facility] Ph one Number [address] [address] LABORATORIES [facility] [address] [place] [address] * Prothrombin Time/INR (02/12/2019 1:25 AM METALLURGICAL ANALYST) Only the most recent of 4 results within the time period is included. Protime 17.6 (H) 11.4 - 15.0 sec [facility] INR 1.5 (H) 0.8 - 1.2 [facility] Specimen Blood Performing Organization Address [facility] Ph one Number [address] [address] LABORATORIES [facility] [address] [place] [address] * Complete Blood Count (02/12/2019 1:25 AM METALLURGICAL ANALYST) Only the most recent of 2 results within the time period is included. WBC 6.08 4.00 - 11.00 TH/uL [facility] RBC 3.27 (L) 4.00 - 5.00 MIL/uL [facility] Hemoglobin 10.7 (L) 12.0 - 15.0 g/dL [facility] Hematocrit 31 (L) 36 - 45 % [facility] MCV 95 80 - 99 fL [facility] MCH 33 27 - 34 pg [facility] MCHC 35 32 - 36 % [facility] RDW 11.9 11.5 - 14.5 % [facility] Platelet Count 225 140 - 400 TH/uL [facility] MPV 10.4 9.4 - 12.3 fL [facility] Nucleated RBCs 0 0 - 0 /100 [facility] Specimen Blood Performing Organization Address [facility] one Number [address] [address] [address] [address] * Procalcitonin (02/12/2019 1:25 AM METALLURGICAL ANALYST) Only the most recent of 2 results within the time period is included. Procalcitonin 0.51 (H) 0.00 - 0.10 ng/mL [facility] Comment: Hospital Lab PCT Value Interpretation 0.10 [...] procalcitonin levels. Specimen Blood Performing Organization Address City/[facility] Ph one Number [place] [phone] LABORATORIES [facility] [address] [place] [address] * B12/Folate (02/10/2019 10:00 AM METALLURGICAL ANALYST) VITAMIN B12 306 239 - 931 pg/mL [facility] Folate 9.2 3.4 - 20.0 ng/mL [facility] Specimen Blood Performing Organization Address City/[facility] Ph one Number [address] [address] LABORATORIES [facility] [address] [place] [address] * Renal Panel (02/10/2019 9:59 AM METALLURGICAL ANALYST) Sodium 138 133 - 147 MEQ/L [facility] Potassium 3.6 3.5 - 5.3 MEQ/L [facility] Chloride 106 96 - 112 MEQ/L [facility] Carbon Dioxide 22 20 - 32 MEQ/L [facility] Anion Gap 10 5 - 17 [facility] Calcium 8.2 (L) 8.4 - 10.5 mg/dL [facility] Glucose 73 70 - 100 mg/dL [facility] Albumin 3.1 (L) 3.5 - 5.0 g/dL [facility] Blood Urea 17 7 - 26 mg/dL [facility] Lab Creatinine 0.8 0.4 - 1.1 mg/dL [facility] Lab eGFR Female AA 85 60 - 200 [facility] mL/min/1.73sq Hospital Lab eGFR Female 71 60 - 200 [facility] Non-AA mL/min/1.73sq Hospital Lab Phosphorus 3.7 2.5 - 4.5 mg/dL [facility] Specimen Blood Performing Organization Address City/[facility] Ph one Number [facility] [address] [place] [address] LABORATORIES [facility] [address] [place] [address] * CT Chest w contrast (02/10/2019 9:29 AM METALLURGICAL ANALYST) Specimen Impressions Performed At 1. Thickening of [...] or edited the final report. READING SITE: [facility] Narrative Performed At Patient: PAU MCCABE Sex#: F #: [id number] Natacha #: [id number] Location: [facility] [id number] 7410-01 Accession# : [id number] Procedure Requested: [id number] CT CHEST W CONTRAST Reason for Exam: [...] Rad Results In - 02/10/2019 12:58 PM METALLURGICAL ANALYST Patient: PAU MCCABE Sex#: F #: [id number] Natacha#: [id number] Location: [address] 7410-01 Procedure Requested: [id number] CT CHEST W CONTRAST Reason for Exam: [...] or edited the final report. READING SITE: [facility] Performing Organization Address City/State/Zipcode Ph one Number [place] * XR Chest single view frontal (02/09/2019 12:26 PM METALLURGICAL ANALYST) Specimen Impressions Performed At 1. Findings are suggestive of bronchitis with right b asilar MCKESSON pneumonia/aspiration. READING SITE: [facility] Narrative Performed At Patient: PAU MCCABE Sex#: F #: [id number] Natacha #: [id number] Location: [facility] [id number] 7410-01 Accession# : [id number] Procedure Requested: [id number] XR CHEST SINGLE VIEW FRONTAL Reason for [...] Rad Results In - 02/09/2019 12:35 PM METALLURGICAL ANALYST Patient: PAU MCCABE Sex#: F #: [id number] Natacha#: [id number] Location: [facility] E7E 7410-01 Procedure Requested: [id number] XR CHEST SINGLE VIEW FRONTAL Reason for [...] bronchitis with right basilar pneumonia/aspiration. READING SITE: [facility] Performing Organization Address [facility] Ph one Number [place] * XR Outside images for PACS (02/09/2019 7:05 AM METALLURGICAL ANALYST) Specimen Performing Organization Address [facility] Ph one Number [place] * XR Outside images for PACS Abdomen (02/09/2019 7:05 AM METALLURGICAL ANALYST) Specimen Performing Organization Address [facility] Ph one Number [place] * Electrocardiogram (ECG) (02/08/2019 1:12 AM METALLURGICAL ANALYST) QRSd 106 [facility] QT 448 [facility] QTC 444 [facility] ECGHR 59 [facility] ECGPR 192 [facility] Specimen Narrative Performed At [facility] Test Date: 2019-02-08 Pat Name: PAU MCCABE Department: 56 Room: 7410 Gender: Female Interface Engineer: [id number] : 1950 Requested By: JOSELINE MARRERO Order Number: [id number] Reading MD: Brent Agarwal Measurements Intervals [place] Rate: 59 P: 39 [place]: 192 QRS: 16 QRSD: 106 T: 41 QT: 448 QTc: 444 Interpretive Statements SINUS RHYTHM Electronically Signed On 02-08-2019 10:2 9:19 METALLURGICAL ANALYST by Brent Agarwal Procedure Note Interface, External Ris In - 02/08/2019 10:29 AM METALLURGICAL ANALYST [facility] Test Date: 2019-02-08 Pat Name: PAU MCCABE Department: 56 Room: 7410 Gender: Female Interface Engineer: [id number] : 1950 Requested By: JOSELINE MARRERO Order Number: [id number] Reading MD: Brent Agarwal Measurements Intervals [place] Rate: 59 P: 39 [place]: 192 QRS: 16 QRSD: 106 T: 41 QT: 448 QTc: 444 Interpretive Statements SINUS RHYTHM Electronically Signed On 02-08-2019 10:29:19 METALLURGICAL ANALYST by Brent Agarwal Performing Organization Address City/State/Zipcode Ph one Number [facility] * CBC and Diff (manual diff if necessary) (02/08/2019 1:00 AM METALLURGICAL ANALYST) WBC 6.60 4.00 - 11.00 TH/uL [facility] RBC 3.52 (L) 4.00 - 5.00 MIL/uL [facility] Hemoglobin 11.7 (L) 12.0 - 15.0 g/dL [facility] Hematocrit 34 (L) 36 - 45 % [facility] MCV 97 80 - 99 fL [facility] MCH 33 27 - 34 pg [facility] MCHC 34 32 - 36 % [facility] RDW 12.5 11.5 - 14.5 % [facility] Platelet Count 162 140 - 400 TH/uL [facility] MPV 11.1 9.4 - 12.3 fL [facility] Nucleated RBCs 0 0 - 0 /100 [facility] % Neutrophils 74 45 - 78 % [facility] %Lymphocytes 16 15 - 47 % [facility] %Monocytes 9 0 - 12 % [facility] %Eosinophils 2 0 - 7 % [facility] %Basophils 1 0 - 2 % [facility] % Imm Grans 0 0 - 1 % [facility] # Granulocytes 4.87 1.70 - 6.80 TH/uL [facility] # Lymphocytes 1.02 1.00 - 3.30 TH/uL [facility] # Monocytes 0.56 0.20 - 0.90 TH/uL [facility] # Eosinophils 0.11 0.00 - 0.40 TH/uL [facility] # Basophils 0.03 0.00 - 0.10 TH/uL [facility] Specimen Blood Performing Organization Address City/[facility]/Zipcode Ph one Number [address] [address] LABORATORIES [facility] [address] [place] [address] * Comprehensive Metabolic Panel (02/08/2019 1:00 AM METALLURGICAL ANALYST) Sodium 141 133 - 147 MEQ/L [facility] Potassium 3.8 3.5 - 5.3 MEQ/L [facility] Chloride 110 96 - 112 MEQ/L [facility] Carbon Dioxide 24 20 - 32 MEQ/L [facility] Anion Gap 7 5 - 17 [facility] Calcium 8.9 8.4 - 10.5 mg/dL [facility] Glucose 93 70 - 100 mg/dL [facility] Protein Total 6.4 6.0 - 8.2 g/dL [facility] Serum [facility] Lab Albumin 3.5 3.5 - 5.0 g/dL [facility] Alkaline 53 42 - 140 IU/L [facility] Alanine 18 0 - 34 IU/L [facility] e Aspartate 25 15 - 46 IU/L [facility] e Bilirubin Total 0.8 0.2 - 1.3 mg/dL [facility] Blood Urea 22 7 - 26 mg/dL [facility] Lab Creatinine 0.9 0.4 - 1.1 mg/dL [facility] eGFR Female AA 74 60 - 200 [facility] mL/min/1.73sq m Hospital Lab eGFR Female 62 60 - 200 [facility] Non-AA mL/min/1.73sq m Hospital Lab Specimen Blood Performing Organization Address City/[facility]/Zipcode Ph one Number [address] [address] LABORATORIES [facility] [address] [place] [address] documented in this encounter Visit Diagnoses Diagnosis [...] Medication Order MAR Action 02/08/2019 1:24 PM METALLURGICAL ANALYST 650 mg acetaminophen (TYLENOL) 650 mg/20.3 mL Given solution 325-650 mg 325-650 mg, Oral, Every 6 hours PRN, mild pain (pain score 1-3), Indications : fever, pain, Starting 02/08/19 at 1259, Do not exceed 4 GM/DAY of acetaminophen. If 65 or older do not exceed 3 GM/DAY. If chronic alcoholic d o not exceed 2 GM/DAY., 02/13/2019 8:35 AM METALLURGICAL ANALYST 3 mg budesonide (ENTOCORT EC) 24 hr capsule 3 Given mg 3 mg, Oral, Daily, Indications: infection, eosinophilic esophagitis, First dose on 02/08/19 at 0900, DO NOT CRUSH OR CHEW., 3 mg Given 02/11/2019 8:22 AM METALLURGICAL ANALYST 3 mg Given 02/08/2019 10:04 AM METALLURGICAL ANALYST 02/09/2019 8:18 AM METALLURGICAL ANALYST 25 mg carvedilol (COREG) tablet 25 mg Given 25 mg, Oral, 2 times daily, Indications : chronic heart failure, First dose on [place] 02/08/19 at 0045 25 mg Given 02/08/2019 8:12 PM METALLURGICAL ANALYST 25 mg Given 02/08/2019 10:03 AM METALLURGICAL ANALYST 02/13/2019 8:36 AM METALLURGICAL ANALYST 25 mg carvedilol (COREG) tablet 25 mg Given 25 mg, Oral, 2 times daily, First dose on 02/10/19 at 2100 25 mg Given 02/12/2019 9:17 PM METALLURGICAL ANALYST 25 mg Given 02/12/2019 4:17 PM METALLURGICAL ANALYST 02/13/2019 11:03 AM METALLURGICAL ANALYST 2 g 100 mL/hr cefTRIAXone (ROCEPHIN) 2 g in sodium New Bag chloride ADDV (NS) 50 mL IVPB 2 g, Intravenous, at 100 mL/hr, Daily, Indications: pneumonia, First dose on [place] 02/12/19 at 1000, For 7 doses 2 g 100 mL/hr New Bag 02/12/2019 11:22 AM METALLURGICAL ANALYST 02/13/2019 5:12 AM METALLURGICAL ANALYST 125 mcg dofetilide (TIKOSYN) capsule 125 mcg Given 125 mcg, Oral, Every 12 hours, Indications: cardioversion of atrial fibrillation, paroxysmal supraventricular tachycardia, First dos e on [place] 02/08/19 at 0045, DO NOT CRUSH OR CHEW., 125 mcg Given 02/12/2019 4:16 PM METALLURGICAL ANALYST 125 mcg Given 02/11/2019 8:35 PM METALLURGICAL ANALYST 02/11/2019 8:28 AM METALLURGICAL ANALYST 40 mg esomeprazole (NexIUM) capsule 40 mg Given 40 mg, Oral, Daily, Indications: gastroesophageal reflux disease, First dose on [place] 02/08/19 at 0900, Instructio n for ng/peg/tube [...] , 40 mg Given 02/08/2019 10:00 AM METALLURGICAL ANALYST 02/13/2019 8:35 AM METALLURGICAL ANALYST 40 mg esomeprazole (NexIUM) capsule 40 mg [...] , 40 mg Given 02/12/2019 4:15 PM METALLURGICAL ANALYST 40 mg Given 02/11/2019 5:16 PM METALLURGICAL ANALYST 02/08/2019 10:03 AM METALLURGICAL ANALYST 40 mg furosemide (LASIX) tablet 40 mg Given 40 mg, Oral, Daily, Indications: edema, First dose on [place] 02/08/19 at 0900 hydrALAZINE (APRESOLINE) injection 10 m g 10 mg, Intravenous, Every 6 hours PRN, high blood pressure, for SBP > 170 or DBP > 100, Starting [place] 02/08/19 at 0055 02/10/2019 9:32 AM METALLURGICAL ANALYST 65 mL iohexol (OMNIPAQUE) 350 mg iodine/mL Given injection 1-500 mL 1-500 mL, Intravenous, Once in imaging, contrast, Starting [facility] 02/10/19 at 0932, For 1 dose 02/12/2019 4:19 PM METALLURGICAL ANALYST 15 mg ketorolac (TORADOL) injection 15 mg Given 15 mg, Intravenous, Every 6 hours PRN, moderate pain (pain score 4-6), severe pain (pain score 7-10), Starting [facility] 02/09/19 at 1404, For 5 days 15 mg Given 02/12/2019 12:43 PM METALLURGICAL ANALYST 15 mg Given 02/10/2019 8:12 AM METALLURGICAL ANALYST 02/08/2019 2:35 AM METALLURGICAL ANALYST 0.5 mg LORazepam (ATIVAN) injection 0.5 mg Given 0.5 mg, Intravenous, Once, [place] 02/08/19 at 0115, For 1 dose, Maximum IV push rate of 2 mg/min; max IVP dose is 4 mg. , magnesium sulfate IVPB 2 gram (premix) 2 g, Intravenous, at 25 mL/hr, As needed, standard electroyte replacement , Starting [place] 02/08/19 at 0327, Replace i n addition [...] (if able to monitor)., 02/10/2019 7:18 PM METALLURGICAL ANALYST 5 mg metoprolol (LOPRESSOR) injection 5 mg Given 5 mg, Intravenous, Every 6 hours scheduled, Indications: ventricular rat e control in atrial fibrillation, hold fo r HR < 55, SBP less than 100 mmHg or restarting PO carvedilol, First dose (after last modification) on Sat 9 at 0000 5 mg Given 02/10/2019 12:59 PM METALLURGICAL ANALYST 5 mg Given 02/10/2019 6:29 AM METALLURGICAL ANALYST 02/13/2019 11:41 AM METALLURGICAL ANALYST 500 mg 200 mL/hr metroNIDAZOLE (FLAGYL) IVPB 500 mg New Bag 500 mg, Intravenous, Administer over 30 Minutes, Daily, Indications: ASPIRATION PNEUMONIA, First dose on [place] 02/12/19 at 1000, Bag 1 of 2 Avoid Alcohol in Food and Drinks, 500 mg 200 mL/hr New Bag 02/12/2019 11:25 AM METALLURGICAL ANALYST 02/13/2019 12:20 PM METALLURGICAL ANALYST 500 mg 200 mL/hr metroNIDAZOLE (FLAGYL) IVPB 500 mg New Bag 500 mg, Intravenous, Administer over 30 Minutes, Daily, Indications: ASPIRATION PNEUMONIA, First dose on [place] 02/12/19 at 1000, Bag 2 of 2 Avoid Alcohol in Food and Drinks, 500 mg 200 mL/hr New Bag 02/12/2019 12:05 PM METALLURGICAL ANALYST 02/13/2019 8:36 AM METALLURGICAL ANALYST 10 mg PARoxetine (PAXIL) tablet 10 mg Given 10 mg, Oral, Daily, Indications: anxiet y with depression, First dose on 02/08/19 at 0900 10 mg Given 02/12/2019 4:16 PM METALLURGICAL ANALYST 10 mg Given 02/11/2019 8:24 AM METALLURGICAL ANALYST 02/12/2019 6:23 AM METALLURGICAL ANALYST 3.375 g 100 mL/hr piperacillin-tazobactam (ZOSYN) IVPB New Bag 3.375 g (premix) 3.375 g, Intravenous, at 100 mL/hr, Every 6 hours scheduled, Indications: ASPIRATION PNEUMONIA, First dose on 02/09/19 at 1400 3.375 g 100 mL/hr New Bag 02/11/2019 11:23 PM METALLURGICAL ANALYST 3.375 g 100 mL/hr New Bag 02/11/2019 5:19 PM METALLURGICAL ANALYST potassium bicarb-citric acid (EFFER-K) effervescent tablet 20 [...] through a central line., 02/08/2019 2:02 PM METALLURGICAL ANALYST 75 mL/hr 75 mL/hr sodium chloride 0.9% infusion New Bag 75 mL/hr, Intravenous, Continuous, Starting 02/08/19 at 0045, For 48 hours 75 mL/hr 75 mL/hr Restarted 02/08/2019 12:52 AM METALLURGICAL ANALYST 02/11/2019 11:02 AM METALLURGICAL ANALYST 75 mL/hr 75 mL/hr sodium chloride 0.9% infusion New Bag 75 mL/hr, Intravenous, Continuous, Starting [facility] 02/09/19 at 1400, For 48 hours 75 mL/hr 75 mL/hr New Bag 02/10/2019 6:43 PM METALLURGICAL ANALYST 75 mL/hr 75 mL/hr New Bag 02/10/2019 12:09 AM METALLURGICAL ANALYST 02/08/2019 5:29 AM METALLURGICAL ANALYST 1.5 mg warfarin (COUMADIN) split tablet 1.5 mg Given 1.5 mg, Oral, Once, [place] 02/08/19 at 0500 , For 1 dose documented in this encounter Additional Health Concerns Last Indicated Resolved Time Infection Onset Date 02/12/2019 02/12/2019 12:39 PM METALLURGICAL ANALYST C.Difficile - Rule Out 02/12/2019 documented as of this encounter
--- OUTSIDE RECORDS SUMMARY | 2019-08-31 23:32 | XMS REPORT | Encounter Summary ---
Author Author [facility] Organization [facility] Address Unknown Phone Unavailable Care Team Providers Care Ceramics Instructor Name Role Phone Yulissa Zapata PCP Reason for Visit * Auth/Cert (Routine) Referred By Contact Referred To Contact Status Reason Specialty Diagnoses / Procedures Rosenod King MD [address] [facility] [place] [address] New Request Procedures Case request operating room: ESOPHAGOGASTRODUOD ENOSCOPY (EGD) Encounter Details Care Team Description Date Type Department Jewels Sutherland MD [address] [place], [place] [id number] Enzo Soares MD [address] [facility] [address] [place] [address] [phone] 02/12/2019 [facility] [address] [place] [address] Anesthesia Record Responsible Anesthesiologist Anesthesia Start Time [...] to placement: N/A; MARIN Penaloza Placed By: Punch Machine Hand; Site: Oral; Device: ETT - Cuffed; Size: [...] Jewels Sutherland MD - 02/12/2019 3:49 PM METROLOGY MANAGER Anesthesia Post Evaluation Procedure(s):ESOPHAGOGASTRODUODENOSCOPY, WITH BOTULINUM TOXIN [...] SpO2 93 % filed at 02/12/2019 1520 OLOGY MANAGER * Anesthesia Preprocedure Evaluation - Jewels Sutherland MD - 02/12/2019 2:35 PM METROLOGY MANAGER Anesthesia Evaluation Patient summary and Nursing notes [...] and oral ETT Plan discussed with anesthesiologist cafeteria assistant. Anesthetic plan and risks discussed with patient. Recovery plan: Phase II PONV Risk: low Prophylactic antiemetics medically inappropriate. Notes I have seen and examined the patient, reviewed the chart and discussed the risks and benefits of the anesthetic plan. The patient would like to proceed with the procedure as planned. Jewels Sutherland M.D. OLOGY MANAGER documented in this encounter Plan of Treatment Not on filedocumented as of this encounter Visit Diagnoses Not on filedocumented in this encounter Administered Medications Action Date Dose Rate Site Medication Order MAR Action 02/12/2019 2:30 PM METROLOGY MANAGER lactated ringers infusion New Bag Continuous PRN, Starting Gabby 02/12/19 at 1430, Anesthesia Intra-op 02/12/2019 2:46 PM METROLOGY MANAGER 50 mg lidocaine (pf) (XYLOCAINE-MPF) 10 mg/mL Given (1 %) injection As needed, Starting Gabby 02/12/19 at 1446 , Anesthesia Intra-op 02/12/2019 2:52 PM METROLOGY MANAGER 4 mg ondansetron (ZOFRAN) injection Given As needed, Starting Gabby 02/12/19 at 1452 , Anesthesia Intra-op 02/12/2019 2:46 PM METROLOGY MANAGER 200 mg propofol (DIPRIVAN) injection Given As needed, Starting Gabby 02/12/19 at 1446 , Anesthesia Intra-op 02/12/2019 2:46 PM METROLOGY MANAGER 100 mg succinylcholine (ANECTINE) injection Given As needed, Starting Gabby 02/12/19 at 1446 , Anesthesia Intra-op documented in this encounter
--- OUTSIDE RECORDS SUMMARY | 2019-08-31 23:32 | XMS REPORT | Encounter Summary ---
Author Author [facility] Organization [facility] Address Unknown Phone Unavailable Care Team Providers Care Regulatory Affairs Spec Name Role Phone Yulissa Zapata PCP Encounter Details Care Team Description Date Type Department Lorena Curry RN 02/23/2019 Abstract [facility] [address] [facility] [address] [place] [address] Social History Date Tobacco Use Types Packs/Day [...]
--- OUTSIDE RECORDS SUMMARY | 2019-08-31 23:33 | XMS REPORT | Encounter Summary ---
Author Author [facility] Organization [facility] Address Unknown Phone Unavailable Care Team Providers Care Foam Caster Name Role Phone Yulissa Zapata PCP Reason for Visit * Auth/Cert (Routine) Referred By Contact Referred To Contact Status Reason Specialty Diagnoses / Procedures Rosendo King MD [address] [facility] [place] [address] New Request Procedures Case request operating room: ESOPHAGOGASTRODUOD ENOSCOPY (EGD) Encounter Details Care Team Description Date Type Department Lorie Yadav MD [address] [place], [place] [id number] David Ma MD [address] [facility] [address] [place], [place] [id number] 02/10/2019 Anesthesia [facility] al Event [address] [place] [address] Anesthesia Record Responsible Anesthesiologist Anesthesia Start Time Anesthesi a Stop Time Procedure Name Lorie Yadav MD 02/10/19 1519 02/10/19 1609 ESOPHAGOGASTRODUODENOSCOP Y (EGD) (N/A ) Date Time Event Comment 1501 AN Equip Check 2019 151 In room 1519 An Start 1519 An Start Data 1522 Pt eval immediately prior to anesthesia 1524 Preoxygenated Prior to Induction 1524 An Induction 1525 RSI/Cricoid 1525 An Intubation 1527 Anesthesia Ready 1527 PEDIATRIC PHYSICAL THERAPY ASSISTANT/AA Herbert Johnston CRNA Intraprocedure Sign-Off 1531 Procedure [...] RN Location: Antecubital 02/10/19 1603 by Herbert Johnston CRNA Non-Surgic Date: 02/10/19; Time: 1525; Able to mas k 02/10/19 1525 by Herbert etienne Airway ventilate prior to placement: N/A; Ceciilo browning CRNA Placed By: Metal Cabinet Finisher; Site: Oral; Device: ETT - Cuffed; Size: [...] Lorie Yadav MD - 02/10/2019 6:14 PM KICK PLATE INSTALLER Anesthesia Post Evaluation Procedure(s):ESOPHAGOGASTRODUODENOSCOPY (EGD) Surgeon: Anthony [...] filed at 02/10/2019 1700 92% on discharge PLATE INSTALLER * Anesthesia Preprocedure Evaluation - Lorie Yadav MD - 02/10/2019 3:42 PM KICK PLATE INSTALLER Anesthesia Evaluation No history of anesthetic complications [...] RSI and oral ETT Plan discussed with PEDIATRIC PHYSICAL THERAPY ASSISTANT. Anesthetic plan and risks discussed with patient. Recovery plan: PACU PLATE INSTALLER documented in this encounter Plan of Treatment Not on filedocumented as of this encounter Visit Diagnoses Not on filedocumented in this encounter Administered Medications Action Date Dose Rate Site Medication Order MAR Action 02/10/2019 3:24 PM KICK PLATE INSTALLER 50 mg lidocaine (pf) (XYLOCAINE-MPF) 10 mg/mL Given (1 %) injection As needed, Starting 02/10/19 at 1524 , Anesthesia Intra-op 02/10/2019 3:39 PM KICK PLATE INSTALLER 4 mg ondansetron (ZOFRAN) injection Given As needed, Starting 02/10/19 at 1539 , Anesthesia Intra-op 02/10/2019 3:24 PM KICK PLATE INSTALLER 140 mg propofol (DIPRIVAN) injection Given As needed, Starting 02/10/19 at 1524 , Anesthesia Intra-op 02/10/2019 3:15 PM KICK PLATE INSTALLER sodium chloride 0.9% infusion New Bag Continuous PRN, Starting 02/10/19 at 1515, Anesthesia Intra-op 02/10/2019 3:24 PM KICK PLATE INSTALLER 100 mg succinylcholine (ANECTINE) injection Given As needed, Starting 02/10/19 at 1524 , Anesthesia Intra-op documented in this encounter
--- OUTSIDE RECORDS SUMMARY | 2019-08-31 23:33 | XMS REPORT | Encounter Summary ---
Author Author [facility] Organization [facility] Address Unknown Phone Unavailable Care Team Providers Care Jalousie Installer Name Role Phone Yulissa Zapata PCP Reason for Visit * Auth/Cert (Routine) Referred By Contact Referred To Contact Status Reason Specialty Diagnoses / Procedures Rosendo King MD [address] [facility] [place] [address] New Request Procedures Case request operating room: ESOPHAGOGASTRODUOD ENOSCOPY (EGD) Encounter Details Care Team Description [place] [address] [facility] [address] [place] [address] [phone] ESOPHAGOGASTRODUODENOSCOPY (EGD) [facility] [address] [place] [address] Social History Date Tobacco Use [...] Comments Vital Sign 109/64 02/13/2019 1:36 PM TRAVEL ASSISTANT Blood Pressure 63 02/13/2019 1:36 PM TRAVEL ASSISTANT Pulse 36.7 C (98 F) 02/13/2019 11:50 AM TRAVEL ASSISTANT Temperature 20 02/13/2019 11:50 AM TRAVEL ASSISTANT Respiratory Rate 95% 02/13/2019 11:50 AM TRAVEL ASSISTANT Oxygen Saturation - - Inhaled Oxygen Concentration 90.4 kg (199 lb 4.8 oz) 02/13/2019 4:11 AM TRAVEL ASSISTANT Weight 165.1 cm (5' 5") 02/07/2019 11:28 PM TRAVEL ASSISTANT Height 33.17 02/07/2019 11:28 PM TRAVEL ASSISTANT Body Mass Index documented in this encounter Discharge Summaries * Marcus Bush, DO - 02/13/2019 11:21 AM TRAVEL ASSISTANT [facility] LEGAL ADMINISTRATIVE SECRETARY Hospitalist Discharge Summary Patient Name: Pau Wren [...] PCP was unable to re ach the [facility] GI clinic so she saw a different [...] little water so she was transferred to [facility]. During EGD Attempt 02/09/2019, she appeared to aspirate secondary to retained flu id and food in her esophagus. Repeat EGD done 02/10/19 did not find evidence of retained food or stricture. GI suspects achalasia and recommends outpatient man ometry at [facility] as outpatient. She will be started [...] signed by: Marcus Bush 02/13/2019 11:21 AM EL ASSISTANT documented in this encounter Discharge Instructions * Appointments* Sharon Baxter RN - 02/11/2019 9:38 AM TRAVEL ASSISTANT If you need to reschedule your Cardiology appointment, please call our [facility] department at [phone]. Thank you! EL ASSISTANT * Attachments The following attachments cannot be sent through Care Everywhere.* Piperacillin; Tazobactam injection (Syriac) documented in this encounter Medications at Time [...] Waldo Chavarria MD - 02/13/2019 9:01 AM TRAVEL ASSISTANT GI Progress Note NAME: Pau Wren ADMISSION [...] or edited the final report. READING SITE: [facility] Xr Chest Single View Frontal Result Date: 02/09/2019 1. Findings are suggestive of bronchitis with right basilar pneumonia/aspiration. READING SITE: [facility] ENDOSCOPY EGD 02/10/19 Corrugated mucosa and [...] had dilation at an outside hospital and [place], [place]. Endoscopy report reviewed and jair ent had empiric balloon dilation to 16.5 mm for suspected achalasia at the [facility] [place]. She was also started on Cardizem that she did not tolerate due to hypo tension. EGD done on 02/10 showed no signs of strictures, poor peristalsis may be suggesti ve of achalasia. Due to persistent symptoms, EGD was repeated on 02/12 and Botox injection was don e above the GE junction. Replaced by [facility] was contacted and patient to be scheduled [...] referral to Dr. El gutierrez at the [facility] to discuss poor oral endoscopic myotomy. * Marcus Bush, - 02/12/2019 12:02 PM TRAVEL ASSISTANT [facility] LEGAL ADMINISTRATIVE SECRETARY Hospitalist Progress Note Patient Name: Pau Wren [...] reach the [facility] GI clinic so she saw a different [...] little water so she was transferred to [facility]. During EGD Attempt 02/09/2019, she appeared to aspirate secondary to retained flu id and food in her esophagus. Repeat EGD done 02/10/19 did not find evidence of retained food or stricture. GI suspects achalasia and recommends outpatient man ometry at [facility] as outpatient. She will be started [...] signed by Marcus Bush 02/12/2019 12:02 PM EL ASSISTANT * Marcus Bush, - 02/11/2019 1:33 PM TRAVEL ASSISTANT [facility] LEGAL ADMINISTRATIVE SECRETARY Hospitalist Progress Note Patient Name: Pau Wren [...] reach the [facility] GI clinic so she saw a different [...] little water so she was transferred to [facility]. During EGD Attempt 02/09/2019, she appeared to aspirate secondary to retained flu id and food in her esophagus. Repeat EGD done 02/10/19 did not find evidence of retained food or stricture. GI suspects achalasia and recommends outpatient man ometry at [facility] as outpatient. She will be started [...] signed by Marcus Bush 02/11/2019 1:33 PM EL ASSISTANT * Waldo Chavarria MD - 02/11/2019 1:16 PM TRAVEL ASSISTANT GI Progress Note NAME: Pau Wren ADMISSION [...] or edited the final report. READING SITE: [facility] Xr Chest Single View Frontal Result Date: 02/09/2019 1. Findings are suggestive of bronchitis with right basilar pneumonia/aspiration. READING SITE: [facility] ENDOSCOPY EGD 02/10/19 Corrugated mucosa and [...] had dilation at an outside hospital and [place], [place]. There was also reportedly esophage al [...] diet and undergo esophageal motility study at Replaced by [facility] as an outpatient. If this is not feasible, repeat upper endoscopy with botulinu m toxin injection to lower esophageal sphincter region will be performed tomorro w in an effort to allow hospital discharge. * Kristina Conrad, JOSUE - 02/10/2019 4:07 PM TRAVEL ASSISTANT Attempt to see patient today x2 this afternoon. Out of room for EGD. Will plan t o see patient in AM. EL ASSISTANT * Marcus Bush, - 02/10/2019 3:22 PM TRAVEL ASSISTANT [facility] LEGAL ADMINISTRATIVE SECRETARY Hospitalist Progress Note Patient Name: Pau Wren [...] reach the [facility] GI clinic so she saw a different [...] little water so she was transferred to [facility]. During EGD Attempt 02/09/2019, she appeared to [...] signed by Marcus Bush 02/10/2019 3:22 PM EL ASSISTANT * Katheryn Aguilar - 02/10/2019 10:50 AM TRAVEL ASSISTANT Pau was sitting in bed visiting with her daughter Althea and [id number] Maryjane, the room was well lite when [...] Katheryn Aguilar, 02/10/2019 1:31 PM Pager Number: [phone] EL ASSISTANT * Marcus Bush DO - 02/09/2019 12:58 PM TRAVEL ASSISTANT [facility] LEGAL ADMINISTRATIVE SECRETARY Hospitalist Progress Note Patient Name: Pau Wren [...] reach the [facility] GI clinic so she saw a different [...] little water so she was transferred to [facility]. Assessment/Plan: * Esophageal dysphagia Concern for esophageal [...] signed by Marcus Bush 02/09/2019 12:58 PM EL ASSISTANT * Jenae Suarez PharmD - 02/09/2019 9:58 AM TRAVEL ASSISTANT Pharmacist Warfarin Dosing Sign-Off Note Warfarin is no longer an active order. Pharmacy will sign-off on further dosing at this time. If warfarin therapy is to be resumed, an order for Pharmacy to Dos e Warfarin needs to be resubmitted to pharmacy services for further management. Jenae Suarez PharmD Kwame Lauren PharmChhaya - 02/08/2019 11:41 AM TRAVEL ASSISTANT Pharmacist Warfarin Dosing Progress Note Pau Wren [...] be managed by kaylyn lagunas unless re-consulted. EL ASSISTANT * Lennox Taylor MD - 02/08/2019 6:43 AM TRAVEL ASSISTANT [facility] Hospitalist - Progress Note Patient Name: Pau Wren Account No: [id number] Date of : 1950 Date of Admission: [...] results (as indicated), current inpatient medications and senior technical support engineer notes with pertainent findings noted within the [...] details regarding this patients treatment plan. Room: [address] [place] [address] Diet: CLD, NPO at midnight for possible [...] chlorid e in water Dany Briceño MD [facility] Medicine Division Please page through physician paging. . I saw and examined the patient with Dr Dany Briceño MD. I agree with history , exam, assessment and plan as documented in resident's note. I have edited as a ppropriate to reflect my findings. EGD tomorrow and possibly discharge after that EL ASSISTANT * Paul Scott PharmD - 02/08/2019 3:19 AM TRAVEL ASSISTANT Pharmacist Warfarin Dosing Progress Note Pau Wren [...] be managed by kaylyn lagunas unless re-consulted. EL ASSISTANT documented in this encounter H&P Notes * David Ma MD - 02/12/2019 1:09 PM TRAVEL ASSISTANT PRE ENDOSCOPIC PROCEDURE HISTORY AND PHYSICAL Procedure: [...] ESOPHAGOGASTRODUODENOSCOPY, USING BIOPSY; Surgeon: Randi Stewart; Location: [facility] GI; Service: Gastroenterology; Laterality: N/A; ESOPHAGOGASTRODUODENOSCOPY (EGD) N/A 02/09/2019 Procedure: ESOPHAGOGASTRODUODENOSCOPY (EGD); Surgeon: Brent Tao MD; Locati on: [facility] GI; Service: Gastroenterology; Laterality: N/A; ESOPHAGOGASTRODUODENOSCOPY (EGD) N/A 02/10/2019 Procedure: ESOPHAGOGASTRODUODENOSCOPY (EGD); Surgeon: Anthony Camilo MD; Location: [facility] GI; Service: Gastroenterology; Laterality: N/A; FOOT SURGERY [...] "stuck" Essential hypertension GERD (gastroesophageal reflux disease) retirement current use of antiarrhythmic drug continuous churn [...] Anthony Parks MD - 02/10/2019 3:09 PM TRAVEL ASSISTANT PRE ENDOSCOPIC PROCEDURE HISTORY AND PHYSICAL Procedure: [...] ESOPHAGOGASTRODUODENOSCOPY, USING BIOPSY; Surgeon: Randi Stewart; Location: [facility] GI; Service: Gastroenterology; Laterality: N/A; ESOPHAGOGASTRODUODENOSCOPY (EGD) N/A 02/09/2019 Procedure: ESOPHAGOGASTRODUODENOSCOPY (EGD); Surgeon: Brent Tao MD; Locati on: [facility] GI; Service: Gastroenterology; Laterality: N/A; FOOT SURGERY [...] "stuck" Essential hypertension GERD (gastroesophageal reflux disease) retirement current use of antiarrhythmic drug continuous churn [...] signed by Anthony Camilo 02/10/2019 3:10 PM EL ASSISTANT * Brent Tao MD - 02/09/2019 10:08 AM TRAVEL ASSISTANT PRE ENDOSCOPIC PROCEDURE HISTORY AND PHYSICAL Procedure: [...] ESOPHAGOGASTRODUODENOSCOPY, USING BIOPSY; Surgeon: Randi Stewart; Location: [facility] GI; Service: Gastroenterology; Laterality: N/A; FOOT [...] "stuck" Essential hypertension GERD (gastroesophageal reflux disease) retirement current use of antiarrhythmic drug retirement current use of anticoagulant therapy Mitral regurgitation [...] signed by Brent Tao 02/09/2019 10:08 AM EL ASSISTANT * Joseline Marerro MD - 02/07/2019 11:45 PM TRA[facility]EL [facility]ISTANT [facility] - [facility] Physical Patient Name: Pau Wren Account No: [id number] Date of : 1950 Date of Admission: [...] Her PCP was unable to reach the [facility] GI clinic so she saw a different [...] little water so she was transferred to [facility] from [facility] for further assessment. She [...] "stuck" Essential hypertension GERD (gastroesophageal reflux disease) retirement current use of antiarrhythmic drug continuous churn [...] ESOPHAGOGASTRODUODENOSCOPY, USING BIOPSY; Surgeon: Randi Stewart; Location: [facility] GI; Service: Gastroenterology; Laterality: N/A; FOOT [...] treatment as noted above. Joseline Marrero MD [facility] Medicine Division Please page through physician paging. . EL ASSISTANT documented in this encounter Consult Notes * Chelsea Delgado MD - 02/09/2019 2:33 PM TRAVEL ASSISTANT Associated Order(s): IP CONSULT TO CARDIOLOGY [facility] Cardiology Consult Date: 02/09/2019 Established [facility] patient: Yes: Provider: Willow Last [...] NSR. Patient anticoagulated with warfarin managed by [facility]. 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 READING SITE: [facility] EKG: Normal Sinus Rhythm at 59 [...] Family Another healthcare provider Patient's daughter present EL ASSISTANT * Jenna Borges MD - 02/08/2019 12:22 PM TRAVEL ASSISTANT Associated Order(s): IP CONSULT TO GASTROENTEROLOGY [facility] GI Inpatient New Consult Note Name: [...] had dilation at an outside hospital and [place], [place]. There was also reportedly esophageal spasms [...] ESOPHAGOGASTRODUODENOSCOPY, USING BIOPSY; Surgeon: Randi Stewart; Location: [facility] GI; Service: Gastroenterology; Laterality: N/A; FOOT [...] had dilation at an outside hospital and [place], [place]. There was also reportedly esophage al [...] this past week from outside hospital at [place] in [place], [place] -NPO at midnight -Hold warfarin, if [...] Fellow Disclaimer: This note was dictated using Arigo software and while checked, it m ay have unintentional errors. ATTENDING ADDENDUM I saw and examined the patient with the fellow and agree with the note as below. She has a history of EoE diagnosed by Dr. Balderas. She has recurrence of dyspha sil. No concern for food bolus impaction. Will plan for EGD tomorrow. Jenna Borges MD EL ASSISTANT documented in this encounter Nursing Notes * Lissette Fairbanks RN - 02/12/2019 3:59 PM TRAVEL ASSISTANT Returned from GI procedure. HR a-fib VR 130 Inc of stool. Extensive clean up in bed on monitor. Cardiac medications given, with pt sitting side of bed. T * Lissette Fairbanks RN - 02/12/2019 10:33 AM TRAVEL ASSISTANT GI MD at bedside. T * Chelsea Miller, ZULLY - 02/09/2019 12:03 PM TRAVEL ASSISTANT Stabilized, egd stopped after noted food/fluid in esophagus EL ASSISTANT * Kayley Herrera RN - 02/08/2019 9:00 AM TRAVEL ASSISTANT With AM vitals, O2 noted to be 74%. Patient has gel nailpolish on fingernails & toenails. Difficulty getting accurate read on earlobe. Patient reporting mild S OA but carrying on conversation & appeared to be in no distress. Applied 2 L NC & O2 reading 96%. Updated med-teaching resident of this during morning rounding. Patient resting comfortably, reporting no further SOA. EL ASSISTANT documented in this encounter Miscellaneous Notes * Nursing Discharge - Zhoaib Helton RN - 02/13/2019 2:10 PM TRAVEL ASSISTANT Nursing Discharge Note Patient is stable for discharge. Reviewed discharge instructions and patient ve rbalized understanding, had no further questions, and left the unit in wheel galo ir with staff. Patient traveling home with in personal Vehicle. Patient/family satisfied with progress made towards goals and ready for discharg e. EL ASSISTANT * Care Progression Final DC Note - Dayami Bennett RN - 02/13/2019 11:49 AM TRAVEL ASSISTANT Final Discharge Note Final Discharge Disposition: 01-Home Self Care Discharge goal and plan is mutually agreed upon by patient Patient will discharge to: home, self care Transportation: pts family Discharge Time: appr 12-1300 Special Instructions: none EL ASSISTANT * End of Shift Note - Rula Ball RN - 02/13/2019 6:02 AM TRAVEL ASSISTANT End of Shift Summary and Plan of [...] EGD 02/08/19, mo nitor tolerance of CLD. EL ASSISTANT * End of Shift Note - Lissette Fairbanks RN - 02/12/2019 5:22 PM TRAVEL ASSISTANT End of Shift Summary and Plan of [...] Chau Christy MD - 02/12/2019 2:02 PM TRAVEL ASSISTANT EGD Report Date: 02/12/2019 2:02 PM Patient Name: PAU PANG (age): 1950 (69) Gender: Female Endoscopist(s): MD David Landrum MD Instrument(s): Scope # 9 - EG - 600WR - Regular - Fujinon([id number]) Anesthesia Provider: Rick Sutherland MD Nurse(s): Neil [...] being detected during the procedure. The patient/patients guest service representative appeared to understand the procedure, the potential complications, and alternatives; had the opportunity to ask questions; and informed consent was obtained. The risk/benefit ratio was deemed appropriate to proceed with the procedure. General Anesthesia was administered by nurse chiseler head. Continuous pulse oximetry and blood pressure monitoring [...] Rula Ball RN - 02/12/2019 5:39 AM TRAVEL ASSISTANT End of Shift Summary and Plan of [...] EGD 02/08/19, mo nitor tolerance of CLD. EL ASSISTANT * End of Shift Note - Aislinn Zhong RN - 02/11/2019 5:05 PM TRAVEL ASSISTANT End of Shift Summary and Plan of [...] EGD 02/08/19, mo nitor tolerance of CLD. EL ASSISTANT * Assessment & Plan Note - Marcus Bush DO - 02/11/2019 1:28 PM TRAVEL ASSISTANT Associated Problem(s): Aspiration pneumonia (HCC) Secondary to retained esophogeal food: -completed 3/4 days of zosyn, now has diarrhea -change to rocephin / flagyl to see if less affect on gut -repeat procalcitonin trending down EL ASSISTANT * Sign-Off Note - Kristina Conrad NP - 02/11/2019 9:18 AM TRAVEL ASSISTANT [facility] Sign-Off Note Name: Pau Wren CPI: [id number] Date of : 1950 Primary care physician: [...] y.o. female who is currently admitted to [facility] under the Hospitalist service. We were consulted [...] has not required diuresis this admission. 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 EL ASSISTANT * Provider Clarification Response - Marcus Bush DO - 02/11/2019 8:01 AM TRAVEL ASSISTANT [facility] Query Respons e Note PATIENT: PAU WREN : 1950 ADMIT DATE: 02/07/2019 11:25 PM DISCH DATE: RESPONDING PROVIDER #: [id number] RESPONSE TEXT: The patient has aspiration pneumonia. [...] by: MARCUS VAUGHAN DO 02/11/2019 8:00 AM EL ASSISTANT * End of Shift Note - Tomasa Foreman, ZULLY - 02/11/2019 6:44 AM TRAVEL ASSISTANT End of Shift Summary and Plan of [...] EGD 02/08/19, mo nitor tolerance of CLD. EL ASSISTANT * End of Shift Note - Kayley Herrera RN - 02/10/2019 7:49 PM TRAVEL ASSISTANT End of Shift Summary and Plan of [...] EGD 02/08/19, mo nitor tolerance of CLD. EL ASSISTANT * Nutrition Note - Lilliam Lai RD - 02/10/2019 11:50 AM TRAVEL ASSISTANT Nutrition Assessment [facility] DIAGNOSIS & INTERVENTION: DIAGNOSIS 1 Nutrition [...] Usual Body Weight: 96.2 kg (212 lb) [place] Body Weight: 56.7 kg (125 lb) % [place] Body Weight: 159 % % Weight Loss [...] Estimated Energy Needs Total Energy Estimated Needs: 6584-8855 kcal/day Method for Estimating Needs: MSJ 1.2-1.4 Estimated Protein Needs Total Protein Estimated Needs: 57-68 gm/day Method for Estimating Needs: 1.0-1.2 gm/day Fluid Needs Total Fluid Estimated Needs: per MD MONITORING/EVALUATION: 1. Food & Nutrition Related Hx: Energy Intake 2. Anthropometrics: Weight change 3. Biochemical: Nutrition related labs 4. Nutrition-focused physical findings: GI function, skin Electronically signed by Lilliam Lai 02/10/2019 11:50 AM EL ASSISTANT * Operative Note - Anthony Camilo MD - 02/10/2019 9:00 AM TRAVEL ASSISTANT EGD Report Date: 02/10/2019 9:00 AM Patient Name: PAU WREN DOB (age): 1950 (69) Gender: Female Endoscopist(s): Anthony Camilo MD Instrument(s): Scope # 3 - EG - 600WR - Regular - Fujinon([id number]) Anesthesia Provider: Lorie Yadav MD Nurse(s): Lorena [...] being detected during the procedure. The patient/patients guest service representative appeared to understand the procedure, the [...] 02/10/2019 4:02:20 PM by Anthony Camilo MD EL ASSISTANT * End of Shift Note - Julio C Pineda RN - 02/10/2019 7:37 AM TRAVEL ASSISTANT End of Shift Summary and Plan of [...] EGD 02/08/19, mo nitor tolerance of CLD. EL ASSISTANT * Care Progression Initial Assessment - Dayami Bennett RN - 02/09/2019 1:27 PM TRAVEL ASSISTANT Care Progression Initial Assessment Note Admit for [...] system has been Support System: Spouse/significant other, [employer] Patient has verbalized the following concerns at [...] MD and mukul serrano their medications from [facility] #[id number] [facility] [address] [facility] [address] [facility] [address] [facility] [address] [place] [address] [facility] [address] DAYAMI BENNETT RN HOT DIP PLATER [phone] EL ASSISTANT * End of Shift Note - Kayley Herrera RN - 02/09/2019 12:38 PM TRAVEL ASSISTANT End of Shift Summary and Plan of [...] EGD 02/08/19, onel nitor tolerance of CLD. EL ASSISTANT * Operative Note - Brent Tao MD - 02/09/2019 9:30 AM TRAVEL ASSISTANT EGD Report Date: 02/09/2019 9:30 AM Patient Name: PAU PANG (age): 1950 (69) Gender: Female Endoscopist(s): MD David Alonso MD Instrument(s): Scope # 6 - EG - 600WR - Regular - Fujsunithan([id number]) Anesthesia Provider: Dayton Hopkins MD Nurse(s): Chelsea [...] being detected during the procedure. The patient/patients guest service representative appeared to understand the procedure, the [...] 12:04:07 PM by MD David Alonso MD EL ASSISTANT * End of Shift Note - Jono Negron RN - 02/09/2019 5:31 AM TRAVEL ASSISTANT End of Shift Summary and Plan of [...] EGD 02/08/19, mo nitor tolerance of CLD. EL ASSISTANT * End of Shift Note - Kayley Herrera RN - 02/08/2019 5:18 PM TRAVEL ASSISTANT End of Shift Summary and Plan of [...] tomorrow. Faxed request for medical records to [place] at [place], [place]. NSR on telemetry. Continuing to [...] EGD 02/08/19, mo nitor tolerance of CLD. EL ASSISTANT * End of Shift Note - Jono Ngeron RN - 02/08/2019 4:47 AM TRAVEL ASSISTANT End of Shift Summary and Plan of [...] Stay Nursing goal for hospital stay: Plan: EL ASSISTANT * Assessment & Plan Note - Marcus Bush DO - 02/08/2019 12:56 AM TRAVEL ASSISTANT Associated Problem(s): Paroxysmal atrial fibrillation (HCC) Currently in sinus rhythm: -continue dofetilide as PO allows -continue to hold warfarin as needs repeat EGD today EL ASSISTANT * Assessment & Plan Note - Marcus Bush DO - 02/08/2019 12:56 AM TRAVEL ASSISTANT Associated Problem(s): Essential hypertension Continue coreg EL ASSISTANT * Assessment & Plan Note - Marcus Bush DO - 02/08/2019 12:55 AM TRAVEL ASSISTANT Associated Problem(s): Depression Continue Paxil EL ASSISTANT * Assessment & Plan Note - Marcus Bush DO - 02/08/2019 12:54 AM TRAVEL ASSISTANT Associated Problem(s): Esophageal dysphagia Concern for esophageal stricture s/p dilatation at outside hospital: -history of eosinophilic esophagitis -failed EGD attempt with possible aspiration 02/09 -repeat EGD 02/10/19 without stricture, clinical concern for achalasia -failed trial of clear liquid diet -plan Botox today as did not tolerate PO EL ASSISTANT * Hospital Course - Marcus Bush DO - 02/08/2019 12:45 AM TRAVEL ASSISTANT 69 y.o. female with h/o Afib on [...] Her PCP was unable to reach the [facility] GI clinic so she saw a different [...] little water so she was transferred to [facility]. During EGD Attempt 02/09/2019, she appeared to aspirate secondary to retained flu id and food in her esophagus. Repeat EGD done 02/10/19 did not find evidence of retained food or stricture. GI suspects achalasia and recommends outpatient man ometry at [facility] as outpatient. She will be started on clear liquid diet and initially tolerated but then could not keep down even pills. She continues to bring up frothy substance. EL ASSISTANT documented in this encounter Plan of Treatment Not on filedocumented as of this encounter Procedures Comments Procedure Name Priority Date/Time Associated Diag nosis CLOSTRIDIUM DIFFICILE STAT 02/12/2019 TOXIN BY PCR 10:45 AM TRAVEL ASSISTANT PROTHROMBIN TIME/INR Routine 02/12/2019 1:25 AM TRAVEL ASSISTANT PROCALCITONIN Routine 02/12/2019 1:25 AM TRAVEL ASSISTANT COMPLETE BLOOD COUNT Routine 02/12/2019 1:25 AM TRAVEL ASSISTANT ESOPHAGOGASTRODUODENOSCOP 02/10/2019 Esophageal stricture, Y (EGD) 3:15 PM TRAVEL ASSISTANT needs intubation. Special Needs Esophageal stricture, needs intubation . B12/FOLATE Add-On 02/10/2019 10:00 AM TRAVEL ASSISTANT RENAL PANEL Routine 02/10/2019 9:59 AM TRAVEL ASSISTANT PROTHROMBIN TIME/INR STAT 02/10/2019 9:[address] CHEST W CONTRAST Routine 02/10/2019 9:29 AM TRAVEL ASSISTANT PROCALCITONIN Routine 02/10/2019 2:45 AM TRAVEL ASSISTANT COMPLETE BLOOD COUNT Routine 02/10/2019 2:45 AM TRAVEL ASSISTANT XR CHEST SINGLE VIEW Routine 02/09/2019 FRONTAL 12:26 PM TRAVEL ASSISTANT XR OUTSIDE IMAGES FOR Routine 02/09/2019 Encounte r for PACS 7:05 AM TRAVEL ASSISTANT consultation XR ABDOMEN OUTSIDE IMAGES Routine 02/09/2019 Enco unter for FOR PACS 7:05 AM TRAVEL ASSISTANT consultation PROTHROMBIN TIME/INR Routine 02/08/2019 12:14 PM TRAVEL ASSISTANT ECG Routine 02/08/2019 1:12 AM TRAVEL ASSISTANT PROTHROMBIN TIME/INR Routine 02/08/2019 1:00 AM TRAVEL ASSISTANT COMPREHENSIVE METABOLIC Routine 02/08/2019 PANEL 1:00 AM TRAVEL ASSISTANT CBC AND DIFF (MANUAL DIFF Routine 02/08/2019 IF NECESSARY) 1:00 AM TRAVEL ASSISTANT documented in this encounter Results * Clostridium Difficile Toxin by PCR (02/12/2019 10:45 AM TRAVEL ASSISTANT) C difficile Not DetectedComment: NEGATIVE Not Detected [facility] for C. difficile toxin by PCR [facility] Lab Specimen Stool Performing Organization Address City/State/Zipcode Ph one Number [facility] [address] [place] [phone] LABORATORIES [facility] [address] [place] [address] * Prothrombin Time/INR (02/12/2019 1:25 AM TRAVEL ASSISTANT) Only the most recent of 4 results within the time period is included. Protime 17.6 (H) 11.4 - 15.0 sec [facility] INR 1.5 (H) 0.8 - 1.2 [facility] Specimen Blood Performing Organization Address City/[facility] Ph one Number [address] [address] LABORATORIES [facility] [address] [place] [address] * Complete Blood Count (02/12/2019 1:25 AM TRAVEL ASSISTANT) Only the most recent of 2 results within the time period is included. WBC 6.08 4.00 - 11.00 TH/uL [facility] RBC 3.27 (L) 4.00 - 5.00 MIL/uL [facility] Hemoglobin 10.7 (L) 12.0 - 15.0 g/dL [facility] Hematocrit 31 (L) 36 - 45 % [facility] MCV 95 80 - 99 fL [facility] MCH 33 27 - 34 pg [facility] MCHC 35 32 - 36 % [facility] RDW 11.9 11.5 - 14.5 % [facility] Platelet Count 225 140 - 400 TH/uL [facility] MPV 10.4 9.4 - 12.3 fL [facility] Nucleated RBCs 0 0 - 0 /100 [facility] Specimen Blood Performing Organization Address City/[facility] Ph one Number [address] [address] LABORATORIES [facility] [address] [place] [address] * Procalcitonin (02/12/2019 1:25 AM TRAVEL ASSISTANT) Only the most recent of 2 results within the time period is included. Procalcitonin 0.51 (H) 0.00 - 0.10 ng/mL [facility] Comment: Hospital Lab PCT [...] procalcitonin levels. Specimen Blood Performing Organization Address City/[facility] Ph one Number [address] [address] LABORATORIES [facility] [address] [place] [address] * B12/Folate (02/10/2019 10:00 AM TRAVEL ASSISTANT) VITAMIN B12 306 239 - 931 pg/mL [facility] Folate 9.2 3.4 - 20.0 ng/mL [facility] Specimen Blood Performing Organization Address City/[facility] Ph one Number [address] [address] LABORATORIES [facility] [address] [place] [address] * Renal Panel (02/10/2019 9:59 AM TRAVEL ASSISTANT) Sodium 138 133 - 147 MEQ/L [facility] Potassium 3.6 3.5 - 5.3 MEQ/L [facility] Chloride 106 96 - 112 MEQ/L [facility] Carbon Dioxide 22 20 - 32 MEQ/L [facility] Anion Gap 10 5 - 17 [facility] Calcium 8.2 (L) 8.4 - 10.5 mg/dL [facility] Glucose 73 70 - 100 mg/dL [facility] Albumin 3.1 (L) 3.5 - 5.0 g/dL [facility] Blood Urea 17 7 - 26 mg/dL [facility] Creatinine 0.8 0.4 - 1.1 mg/dL [facility] eGFR Female AA 85 60 - 200 [facility] mL/min/1.73sq m Hospital Lab eGFR Female 71 60 - 200 [facility] Non-AA mL/min/1.73sq [facility] Phosphorus 3.7 2.5 - 4.5 mg/dL [facility] Specimen Blood Performing Organization Address City/State/Zipcode Ph one Number [facility] [address] [place] [address] LABORATORIES [facility] [address] [place] [address] * CT Chest w contrast (02/10/2019 9:29 AM TRAVEL ASSISTANT) Specimen Impressions Performed At 1. Thickening of [...] or edited the final report. READING SITE: [facility] Narrative Performed At Patient: PAU WREN Sex#: F #: [id number] Natacha #: [id number] Location: [address] [address] Accession# : [id number] Procedure Requested: [id number] CT CHEST W CONTRAST Reason for Exam: [...] Rad Results In - 02/10/2019 12:58 PM TRAVEL ASSISTANT Patient: PAU WREN Sex#: F #: [id number] Naatcha#: [id number] Location: [address] [address] Procedure Requested: [id number] CT CHEST W CONTRAST Reason for Exam: [...] or edited the final report. READING SITE: [facility] Performing Organization Address City/State/Zipcode Ph one Number [facility] * XR Chest single view frontal (02/09/2019 12:26 PM TRAVEL ASSISTANT) Specimen Impressions Performed At 1. Findings are suggestive of bronchitis with right b asilar ALBERTOSON pneumonia/aspiration. READING SITE: [facility] Narrative Performed At Patient: PAU WREN Sex#: F #: [id number] Natacha #: [id number] Location: [address] [address] Accession# : [id number] Procedure Requested: [id number] XR CHEST SINGLE VIEW FRONTAL Reason for [...] Rad Results In - 02/09/2019 12:35 PM TRAVEL ASSISTANT Patient: PAU WREN Sex#: F #: [id number] Natacha#: [id number] Location: [address] [address] Procedure Requested: [id number] XR CHEST SINGLE VIEW FRONTAL Reason for [...] bronchitis with right basilar pneumonia/aspiration. READING SITE: [facility] Performing Organization Address [facility] one Number [facility] * XR Outside images for PACS (02/09/2019 7:05 AM TRAVEL ASSISTANT) Specimen Performing Organization Address [facility] one Number [facility] * XR Outside images for PACS Abdomen (02/09/2019 7:05 AM TRAVEL ASSISTANT) Specimen Performing Organization Address [facility] one Number [facility] * Electrocardiogram (ECG) (02/08/2019 1:12 AM TRAVEL ASSISTANT) QRSd 106 [facility] QT 448 [facility] QTC 444 [facility] ECGHR 59 [facility] ECGPR 192 [facility] Specimen Narrative Performed At [facility] Test Date: 2019-02-08 Pat Name: PAU WREN Department: 56 Room: 10 Gender: Female Outer Diameter Technician: [id number] : 1950 Requested By: JOSELINE MARRERO Order Number: [id number] Reading MD: Brent Agarwal Measurements Intervals [place] Rate: 59 P: 39 OK: 192 QRS: 16 QRSD: 106 T: 41 QT: 448 QTc: 444 Interpretive Statements SINUS RHYTHM Electronically Signed On 02-08-2019 10:2 9:19 TRAVEL ASSISTANT by Bernt Agarwal Procedure Note Interface, External Ris In - 02/08/2019 10:29 AM TRAVEL ASSISTANT [facility] Date: 2019-02-08 Pat Name: PAU WREN Department: 56 Room: 7410 Gender: Female Outer Diameter Technician: [id number] : 1950 Requested By: JOSELINE MARRERO Order Number: [id number] Reading MD: Brent Agarwal Measurements Intervals [place] Rate: 59 P: 39 OK: 192 QRS: 16 QRSD: 106 T: 41 QT: 448 QTc: 444 Interpretive Statements SINUS RHYTHM Electronically Signed On 02-08-2019 10:29:19 TRAVEL ASSISTANT by Brent Agarwal Performing Organization Address City/State/Zipcode Ph one Number [facility] * CBC and Diff (manual diff if necessary) (02/08/2019 1:00 AM TRAVEL ASSISTANT) WBC 6.60 4.00 - 11.00 TH/uL [facility] RBC 3.52 (L) 4.00 - 5.00 MIL/uL [facility] Hemoglobin 11.7 (L) 12.0 - 15.0 g/dL [facility] Hematocrit 34 (L) 36 - 45 % [facility] MCV 97 80 - 99 fL [facility] MCH 33 27 - 34 pg [facility] MCHC 34 32 - 36 % [facility] RDW 12.5 11.5 - 14.5 % [facility] Platelet Count 162 140 - 400 TH/uL [facility] MPV 11.1 9.4 - 12.3 fL [facility] Nucleated RBCs 0 0 - 0 /100 [facility] % Neutrophils 74 45 - 78 % [facility] %Lymphocytes 16 15 - 47 % [facility] %Monocytes 9 0 - 12 % [facility] %Eosinophils 2 0 - 7 % [facility] %Basophils 1 0 - 2 % [facility] % Imm Grans 0 0 - 1 % [facility] # Granulocytes 4.87 1.70 - 6.80 TH/uL [facility] # Lymphocytes 1.02 1.00 - 3.30 TH/uL [facility] # Monocytes 0.56 0.20 - 0.90 TH/uL [facility] # Eosinophils 0.11 0.00 - 0.40 TH/uL [facility] # Basophils 0.03 0.00 - 0.10 TH/uL [facility] Specimen Blood Performing Organization Address City/State/Zipcode Ph one Number [facility] [address] [place] [address] LABORATORIES [facility] [address] [place] [address] * Comprehensive Metabolic Panel (02/08/2019 1:00 AM TRAVEL ASSISTANT) Sodium 141 133 - 147 MEQ/L [facility] Potassium 3.8 3.5 - 5.3 MEQ/L [facility] Chloride 110 96 - 112 MEQ/L [facility] Carbon Dioxide 24 20 - 32 MEQ/L [facility] Anion Gap 7 5 - 17 [facility] Calcium 8.9 8.4 - 10.5 mg/dL [facility] Glucose 93 70 - 100 mg/dL [facility] Protein Total 6.4 6.0 - 8.2 g/dL [facility] Serum [facility] Albumin 3.5 3.5 - 5.0 g/dL [facility] Alkaline 53 42 - 140 IU/L [facility] Alanine 18 0 - 34 IU/L [facility] e Aspartate 25 15 - 46 IU/L [facility] e Bilirubin Total 0.8 0.2 - 1.3 mg/dL [facility] Blood Urea 22 7 - 26 mg/dL [facility] Creatinine 0.9 0.4 - 1.1 mg/dL [facility] eGFR Female AA 74 60 - 200 [facility] mL/min/1.73sq [facility] eGFR Female 62 60 - 200 [facility] Non-AA mL/min/1.73sq m [facility] Lab Specimen Blood Performing Organization Address City/State/Zipcode Ph one Number [facility] [address] [place] [address] LABORATORIES [facility] [address] [place] [address] documented in this encounter Visit Diagnoses Not on filedocumented in this encounter Administered Medications Action Date Dose Rate Site Medication Order MAR Action 02/08/2019 1:24 PM TRAVEL ASSISTANT 650 mg acetaminophen (TYLENOL) 650 mg/20.3 mL Given solution 325-650 mg 325-650 mg, Oral, Every 6 hours PRN, mild pain (pain score 1-3), Indications : fever, pain, Starting 02/08/19 at 1259, Do not exceed 4 GM/DAY of acetaminophen. If 65 or older do not exceed 3 GM/DAY. If chronic alcoholic d o not exceed 2 GM/DAY., 02/13/2019 8:35 AM TRAVEL ASSISTANT 3 mg budesonide (ENTOCORT EC) 24 hr capsule 3 Given mg 3 mg, Oral, Daily, Indications: infection, eosinophilic esophagitis, First dose on 02/08/19 at 0900, DO NOT CRUSH OR CHEW., 3 mg Given 02/11/2019 8:22 AM TRAVEL ASSISTANT 3 mg Given 02/08/2019 10:04 AM TRAVEL ASSISTANT 02/13/2019 8:36 AM TRAVEL ASSISTANT 25 mg carvedilol (COREG) tablet 25 mg Given 25 mg, Oral, 2 times daily, First dose on Sat02/10/19 at 2100 25 mg Given 02/12/2019 9:17 PM TRAVEL ASSISTANT 25 mg Given 02/12/2019 4:17 PM TRAVEL ASSISTANT 02/13/2019 11:03 AM TRAVEL ASSISTANT 2 g 100 mL/hr cefTRIAXone (ROCEPHIN) 2 g in sodium New Bag chloride ADDV (NS) 50 mL IVPB 2 g, Intravenous, at 100 mL/hr, Daily, Indications: pneumonia, First dose on Gabby 02/12/19 at 1000, For 7 doses 2 g 100 mL/hr New Bag 02/12/2019 11:22 AM TRAVEL ASSISTANT 02/13/2019 5:12 AM TRAVEL ASSISTANT 125 mcg dofetilide (TIKOSYN) capsule 125 mcg Given 125 mcg, Oral, Every 12 hours, Indications: cardioversion of atrial fibrillation, paroxysmal supraventricular tachycardia, First dos e on 02/08/19 at 0045, DO NOT CRUSH OR CHEW., 125 mcg Given 02/12/2019 4:16 PM TRAVEL ASSISTANT 125 mcg Given 02/11/2019 8:35 PM TRAVEL ASSISTANT 02/13/2019 8:35 AM TRAVEL ASSISTANT 40 mg esomeprazole (NexIUM) capsule 40 mg [...] , 40 mg Given 02/12/2019 4:15 PM TRAVEL ASSISTANT 40 mg Given 02/11/2019 5:16 PM TRAVEL ASSISTANT hydrALAZINE (APRESOLINE) injection 10 m g 10 mg, Intravenous, Every 6 hours PRN, high blood pressure, for SBP > 170 or DBP > 100, Starting Preston 02/08/19 at 0055 02/12/2019 4:19 PM TRAVEL ASSISTANT 15 mg ketorolac (TORADOL) injection 15 mg Given 15 mg, Intravenous, Every 6 hours PRN, moderate pain (pain score 4-6), severe pain (pain score 7-10), Starting 02/09/19 at 1404, For 5 days 15 mg Given 02/12/2019 12:43 PM TRAVEL ASSISTANT 15 mg Given 02/10/2019 8:12 AM TRAVEL ASSISTANT magnesium sulfate IVPB 2 gram (premix) 2 g, Intravenous, at 25 mL/hr, As needed, standard electroyte replacement , Starting Preston 02/08/19 at 0327, Replace i n addition [...] (if able to monitor)., 02/13/2019 11:41 AM TRAVEL ASSISTANT 500 mg 200 mL/hr metroNIDAZOLE (FLAGYL) IVPB 500 mg New Bag 500 mg, Intravenous, Administer over 30 Minutes, Daily, Indications: ASPIRATION PNEUMONIA, First dose on Gabby 02/12/19 at 1000, Bag 1 of 2 Avoid Alcohol in Food and Drinks, 500 mg 200 mL/hr New Bag 02/12/2019 11:25 AM TRAVEL ASSISTANT 02/13/2019 12:20 PM TRAVEL ASSISTANT 500 mg 200 mL/hr metroNIDAZOLE (FLAGYL) IVPB 500 mg New Bag 500 mg, Intravenous, Administer over 30 Minutes, Daily, Indications: ASPIRATION PNEUMONIA, First dose on Gabby 02/12/19 at 1000, Bag 2 of 2 Avoid Alcohol in Food and Drinks, 500 mg 200 mL/hr New Bag 02/12/2019 12:05 PM TRAVEL ASSISTANT 02/13/2019 8:36 AM TRAVEL ASSISTANT 10 mg PARoxetine (PAXIL) tablet 10 mg Given 10 mg, Oral, Daily, Indications: anxiet y with depression, First dose on 02/08/19 at 0900 10 mg Given 02/12/2019 4:16 PM TRAVEL ASSISTANT 10 mg Given 02/11/2019 8:24 AM TRAVEL ASSISTANT potassium bicarb-citric acid (EFFER-K) effervescent tablet 20 [...] Infection Onset Date 02/12/2019 02/12/2019 12:39 PM TRAVEL ASSISTANT C.Difficile - Rule Out 02/12/2019 documented as of this encounter
--- OUTSIDE RECORDS SUMMARY | 2019-08-31 23:33 | XMS REPORT | Encounter Summary ---
Author Author [facility] Organization [facility] Address Unknown Phone Unavailable Care Team Providers Care Procurement Accountant Name Role Phone Yulissa Zapata PCP Encounter Details Care Team Description Date Type Department 02/09/2019 Imaging [facility] Virtual Revenu e Appointment Location [...] 02/09/2019 Encounte r for PACS 7:05 AM REMOTE SENSING SCIENTIST consultation documented in this encounter Results * XR Outside images for PACS (02/09/2019 7:05 AM REMOTE SENSING SCIENTIST) Specimen Performing Organization Address City/State/Zipcode Ph one Number [facility] documented in this encounter Visit Diagnoses Not on filedocumented in this encounter
--- OUTSIDE RECORDS SUMMARY | 2019-08-31 23:33 | XMS REPORT | Encounter Summary ---
Author Author [facility] Organization [facility] Address Unknown Phone Unavailable Care Team Providers Care Bakery Machine Mechanic Supervisor Name Role Phone Yulissa Zapata PCP Reason for Visit * Reason Comments Procedure VIRGILIO Encounter Details Care Team Description Date Type Department Tamica Emmanuel RN Procedure (VIRGILIO ) 02/09/2019 Telephone [facility] [address] [place] [address] Social History Date Tobacco Use Types Packs/Day [...] jose stout told her to contact her janitorial account manager for clearance to hold warfarin prior to EGD. V/u need for at least 4 weeks of INRs every week > 1.9 prior to ablation so will most likely be late September/early October for VIRGILIO. Will call pt back rusty after 08/27 EGD per pt request to discuss dates. Gave her EPN phone # and transferred her call to [facility] to [facility] requesting the clearance. * Telephone Encounter - [...] difficult to pass temp probe or do AIDEN if needed due to miss ed OAC [...] teaching provid ed and script sent to [facility], med list updated. Explained to her that [...] rhythm the entire time she was in [place]. When she returned in [facility], she has been in and out [...] CDT Pt called. She has returned from [place]. Her son last fall and she came [...] Yulissa Wilkerson RN - 04/24/2019 1:19 PM ETHYLENE COMPRESSOR OPERATOR Pt has been unable to make appointment w/ [facility] specialist because he has not re ceived her medical records yet. She has left messages w/ request for call back f rom GI @ [facility] which have gone unreturned thus far. Requested call back to let us know when GI consult scheduled. We will f/u w/ her if we have not heard back fr om her in two weeks. At that time if OV not scheduled we will need to drop June hold for VIRGILIO and hold later date. Patient returning from [place] late May, co nfirmed she is still taking NOAC. LENE COMPRESSOR OPERATOR * Telephone Encounter - Yulissa Wilkerson RN - 04/24/2019 1:13 PM ETHYLENE COMPRESSOR OPERATOR Left message on machine w/ request for call back to let us know if she has visit scheduled w/ [facility]. LENE COMPRESSOR OPERATOR * Telephone Encounter - Tamica Correa RN - 04/17/2019 2:34 PM ETHYLENE COMPRESSOR OPERATOR Called with recommendation from [facility] to schedule appointment with GI provider. St ated that she was going to contact them Saturday( Apr 20)./cstowe LENE COMPRESSOR OPERATOR * Telephone Encounter - Dayton Daugherty MD - 04/16/2019 7:02 PM ETHYLENE COMPRESSOR OPERATOR I would like her GI consult first It may affect anticoagulation [facility] LENE COMPRESSOR OPERATOR * Telephone Encounter - Yulissa Wilkerson RN - 04/13/2019 3:21 PM ETHYLENE COMPRESSOR OPERATOR Discussed scheduling VIRGILIO w/ [facility] in late [...] OV w/ EP prior to proceeding w/ VIGRILIO. I agreed to hold late June date until we hear back from her next week. Pt confirmed she is doing much better on tikosyn. Only occasional ly does she have skipped heart beats compared to before tikosyn having fast hear t beats. LENE COMPRESSOR OPERATOR * Telephone Encounter - Tamica Emmanuel RN - 03/24/2019 11:00 AM ETHYLENE COMPRESSOR OPERATOR Discussed scheduling VIRGILIO with [facility]. Pt states has been doing well on tikosyn wit h fewer episodes of afib. Pt is still waiting on motility study results. Pt wa nts to schedule at end of June as she is in [place] now for winter. Told pt will call when June schedule built and find a date and pt vu. LENE COMPRESSOR OPERATOR * Telephone Encounter - Tamica Emmanuel RN - 02/09/2019 2:30 PM ETHYLENE COMPRESSOR OPERATOR error LENE COMPRESSOR OPERATOR documented in this encounter Plan of Treatment Not on filedocumented as of this encounter Visit Diagnoses Diagnosis Paroxysmal atrial fibrillation (HCC) Atrial fibrillation documented in this encounter Additional Health Concerns Last Indicated Resolved Time Infection Onset Date 02/12/2019 02/12/2019 12:39 PM ETHYLENE COMPRESSOR OPERATOR C.Difficile - Rule Out 02/12/2019 documented as of this encounter
--- OUTSIDE RECORDS SUMMARY | 2019-08-31 23:33 | XMS REPORT | Encounter Summary ---
Author Author [facility] Organization [facility] Address Unknown Phone Unavailable Care Team Providers Care [employer] Name Role Phone Yulissa Zapata PCP Encounter Details Care Team Description Date Type Department 02/09/2019 Imaging [facility] Virtual Revenu e Appointment Location Social History [...] Enco unter for FOR PACS 7:05 AM HIP HOP DANCER consultation documented in this encounter Results * XR Outside images for PACS Abdomen (02/09/2019 7:05 AM HIP HOP DANCER) Specimen Performing Organization Address City/State/Zipcode Ph one Number [facility] documented in this encounter Visit Diagnoses Not on filedocumented in this encounter
--- OUTSIDE RECORDS SUMMARY | 2019-08-31 23:33 | XMS REPORT | Encounter Summary ---
Author Author [facility] Organization [facility] Address Unknown Phone Unavailable Care Team Providers Care Assessment Technician Name Role Phone Yulissa Zapata PCP Reason for Visit * Auth/Cert (Routine) Referred By Contact Referred To Contact Status Reason Specialty Diagnoses / Procedures Rosendo King MD [address] [facility] [place] [address] New Request Procedures Case request operating room: ESOPHAGOGASTRODUOD ENOSCOPY (EGD) Encounter Details Care Team Description [place] [address] [id number] ESOPHAGOGASTRODUODENOSCOPY, WITH BOTULIN UM TOXIN INJECTION [facility] [address] [place] [address] Social History Date Tobacco Use [...] Comments Vital Sign 109/64 02/13/2019 1:36 PM COMMISSION CLERK Blood Pressure 63 02/13/2019 1:36 PM COMMISSION CLERK Pulse 36.7 C (98 F) 02/13/2019 11:50 AM COMMISSION CLERK Temperature 20 02/13/2019 11:50 AM COMMISSION CLERK Respiratory Rate 95% 02/13/2019 11:50 AM COMMISSION CLERK Oxygen Saturation - - Inhaled Oxygen Concentration 90.4 kg (199 lb 4.8 oz) 02/13/2019 4:11 AM COMMISSION CLERK Weight 165.1 cm (5' 5") 02/07/2019 11:28 PM COMMISSION CLERK Height 33.17 02/07/2019 11:28 PM COMMISSION CLERK Body Mass Index documented in this encounter Discharge Summaries * Marcus Bush, DO - 02/13/2019 11:[address] [facility] NURSING SERVICE ADMINISTRATOR Hospitalist Discharge Summary Patient Name: Pau Wren [...] PCP was unable to re ach the [facility] GI clinic so she saw a different [...] little water so she was transferred to [facility]. During EGD Attempt 02/09/2019, she appeared to aspirate secondary to retained flu id and food in her esophagus. Repeat EGD done 02/10/19 did not find evidence of retained food or stricture. GI suspects achalasia and recommends outpatient man ometry at [facility] as outpatient. She will be started [...] signed by: Marcus Bush 02/13/2019 11:21 AM ISSION CLERK documented in this encounter Discharge Instructions * Appointments* Sharon Baxter RN - 02/11/2019 9:38 AM COMMISSION CLERK If you need to reschedule your Cardiology appointment, please call our [facility] department at [phone]. Thank you! ISSION CLERK * Attachments The following attachments cannot be sent through Care Everywhere.* Piperacillin; Tazobactam injection ([place]) documented in this encounter Medications at Time [...] Waldo Chavarria MD - 02/13/2019 9:01 AM COMMISSION CLERK GI Progress Note NAME: Pau Wren ADMISSION [...] or edited the final report. READING SITE: [facility] Xr Chest Single View Frontal Result Date: 02/09/2019 1. Findings are suggestive of bronchitis with right basilar pneumonia/aspiration. READING SITE: [facility] ENDOSCOPY EGD 02/10/19 Corrugated mucosa and [...] had dilation at an outside hospital and [place], [place]. Endoscopy report reviewed and jair ent had empiric balloon dilation to 16.5 mm for suspected achalasia at the [facility]. She was also started on Cardizem that she did not tolerate due to hypo tension. EGD done on 02/10 showed no signs of strictures, poor peristalsis may be suggesti ve of achalasia. Due to persistent symptoms, EGD was repeated on 02/12 and Botox injection was don e above the GE junction. [facility] was contacted and patient to be scheduled [...] referral to Dr. El gutierrez at the [facility] to discuss poor oral endoscopic myotomy. * Marcus Bush, - 02/12/2019 12:[address] [facility] NURSING SERVICE ADMINISTRATOR Hospitalist Progress Note Patient Name: Pau Wren [...] Her PCP was unable to reach the [facility] GI clinic so she saw a different [...] little water so she was transferred to [facility]. During EGD Attempt 02/09/2019, she appeared to aspirate secondary to retained flu id and food in her esophagus. Repeat EGD done 02/10/19 did not find evidence of retained food or stricture. GI suspects achalasia and recommends outpatient man ometry at [facility] as outpatient. She will be started [...] 02/12/2019 1202 Last data filed at 02/11/2019 2124 Gross per 24 hour Intake 580 ml Output Net 580 ml Body mass index is 33.5 kg/m. Marcus Bush, [facility] Please page through Voalte Messaging using template format. Electronically signed by Marcus Bush 02/12/2019 12:02 PM ISSION CLERK * Marcus Bush, - 02/11/2019 1:[address] [facility] NURSING SERVICE ADMINISTRATOR Hospitalist Progress Note Patient Name: Pau Wren [...] Her PCP was unable to reach the [facility] GI clinic so she saw a different [...] little water so she was transferred to [facility]. During EGD Attempt 02/09/2019, she appeared to aspirate secondary to retained flu id and food in her esophagus. Repeat EGD done 02/10/19 did not find evidence of retained food or stricture. GI suspects achalasia and recommends outpatient man ometry at [facility] as outpatient. She will be started [...] index is 33.23 kg/m. Marcus Bush DO [facility] Please page through Voalte Messaging using template format. Electronically signed by Marcus Bush 02/11/2019 1:33 PM ISSION CLERK * Waldo Chavarria MD - 02/11/2019 1:16 PM COMMISSION CLERK GI Progress Note NAME: Pau Wren ADMISSION [...] or edited the final report. READING SITE: [facility] Xr Chest Single View Frontal Result Date: 02/09/2019 1. Findings are suggestive of bronchitis with right basilar pneumonia/aspiration. READING SITE: [facility] ENDOSCOPY EGD 02/10/19 Corrugated mucosa and [...] had dilation at an outside hospital and [place], [place]. There was also reportedly esophage al [...] diet and undergo esophageal motility study at [facility] as an outpatient. If this is not feasible, repeat upper endoscopy with botulinu m toxin injection to lower esophageal sphincter region will be performed tomorro w in an effort to allow hospital discharge. * Kristina Conrad NP - 02/10/2019 4:07 PM COMMISSION CLERK Attempt to see patient today x2 this afternoon. Out of room for EGD. Will plan t o see patient in AM. ISSION CLERK * Marcus Bush, - 02/10/2019 3:[address] [facility] NURSING SERVICE ADMINISTRATOR Hospitalist Progress Note Patient Name: Pau Wren [...] Her PCP was unable to reach the [facility] GI clinic so she saw a different [...] little water so she was transferred to [facility]. During EGD Attempt 02/09/2019, she appeared to [...] 33.23 kg/m. Marcus Bush DO [facility] Program Please page through Voalte Messaging using template format. Electronically signed by Marcus Bush 02/10/2019 3:22 PM ISSION CLERK Katheryn Ayers - 02/10/2019 10:50 AM COMMISSION CLERK Pau was sitting in bed visiting with her daughter Althea and [id number] Maryjane, the room was well lite when [...] Katheryn Aguilar, 02/10/2019 1:31 PM Pager Number: [phone] ISSION CLERK Marucs Daniels DO - 02/09/2019 12:[address] [facility] NURSING SERVICE ADMINISTRATOR Hospitalist Progress Note Patient Name: Pau Wren [...] Her PCP was unable to reach the [facility] GI clinic so she saw a different [...] little water so she was transferred to [facility]. Assessment/Plan: * Esophageal dysphagia Concern for esophageal [...] index is 33.23 kg/m. Marcus Bush DO [facility] Please page through Voalte Messaging using template format. Electronically signed by Marcus Bush 02/09/2019 12:58 PM ISSION CLERK * Jenae Suarez PharmChhaya - 02/09/2019 9:58 AM COMMISSION CLERK Pharmacist Warfarin Dosing Sign-Off Note Warfarin is no longer an active order. Pharmacy will sign-off on further dosing at this time. If warfarin therapy is to be resumed, an order for Pharmacy to Dos e Warfarin needs to be resubmitted to pharmacy services for further management. Jenae Suarez PharmD C Kwame Carbajal PharmChhaya - 02/08/2019 11:41 AM COMMISSION CLERK Pharmacist Warfarin Dosing Progress Note Pau Wren [...] be managed by kaylyn lagunas unless re-consulted. ISSION CLERK * Lennox Taylor MD - 02/08/2019 6:43 AM COMMISSION CLERK [facility] Hospitalist - Progress Note Patient Name: Pau Wren Account No: [id number] Date of : 1950 Date of Admission: [...] results (as indicated), current inpatient medications and phlebotomy support tech notes with pertainent findings noted within the [...] details regarding this patients treatment plan. Room: [address] [place] [address] Diet: CLD, NPO at midnight for possible [...] chlorid e in water Dany Briceño MD [facility] Medicine Division Please page through physician paging. . I saw and examined the patient with Dr Dany Briceño MD. I agree with history , exam, assessment and plan as documented in resident's note. I have edited as a ppropriate to reflect my findings. EGD tomorrow and possibly discharge after that ISSION CLERK * Paul Scott PharmD - 02/08/2019 3:19 AM COMMISSION CLERK Pharmacist Warfarin Dosing Progress Note Pau Wren [...] be managed by kaylyn lagunas unless re-consulted. ISSION CLERK documented in this encounter H&P Notes * David Ma MD - 02/12/2019 1:09 PM COMMISSION CLERK PRE ENDOSCOPIC PROCEDURE HISTORY AND PHYSICAL Procedure: [...] USING BIOPSY; Surgeon: Randi Stewart; Location: [facility] GI; Service: Gastroenterology; Laterality: N/A; ESOPHAGOGASTRODUODENOSCOPY (EGD) N/A 02/09/2019 Procedure: ESOPHAGOGASTRODUODENOSCOPY (EGD); Surgeon: Brent Tao MD; Locati on: [facility] GI; Service: Gastroenterology; Laterality: N/A; ESOPHAGOGASTRODUODENOSCOPY (EGD) N/A 02/10/2019 Procedure: ESOPHAGOGASTRODUODENOSCOPY (EGD); Surgeon: Anthony Camilo MD; Location: [facility] GI; Service: Gastroenterology; Laterality: N/A; FOOT SURGERY [...] "stuck" Essential hypertension GERD (gastroesophageal reflux disease) skilled nursing current use of antiarrhythmic drug skilled nursing current use of anticoagulant therapy Mitral regurgitation [...] Anthony Parks MD - 02/10/2019 3:09 PM COMMISSION CLERK PRE ENDOSCOPIC PROCEDURE HISTORY AND PHYSICAL Procedure: [...] ESOPHAGOGASTRODUODENOSCOPY, USING BIOPSY; Surgeon: Randi Stewart; Location: [facility]; Service: Gastroenterology; Laterality: N/A; ESOPHAGOGASTRODUODENOSCOPY (EGD) N/A 02/09/2019 Procedure: ESOPHAGOGASTRODUODENOSCOPY (EGD); Surgeon: Brent Tao MD; Locati on: [facility] GI; Service: Gastroenterology; Laterality: N/A; FOOT SURGERY [...] "stuck" Essential hypertension GERD (gastroesophageal reflux disease) patch sander current use of antiarrhythmic drug patch sander current use of anticoagulant therapy Mitral regurgitation [...] signed by Anthony Camilo 02/10/2019 3:10 PM ISSION CLERK * Brent Tao MD - 02/09/2019 10:08 AM COMMISSION CLERK PRE ENDOSCOPIC PROCEDURE HISTORY AND PHYSICAL Procedure: [...] 01/01/2019 Procedure: ESOPHAGOGASTRODUODENOSCOPY, USING BIOPSY; Surgeon: Randi Steawrt; Location: [facility]; Service: Gastroenterology; Laterality: N/A; FOOT SURGERY [...] "stuck" Essential hypertension GERD (gastroesophageal reflux disease) skilled nursing current use of antiarrhythmic drug skilled nursing current use of anticoagulant therapy Mitral regurgitation [...] signed by Brent Tao 02/09/2019 10:08 AM ISSION CLERK * Joseline Marrero MD - 02/07/2019 11:45 PM COMMISSION CLERK [facility] Physical Patient Name: Pau Wren Account No: [id number] Date of : 1950 Date of Admission: [...] Her PCP was unable to reach the [facility] GI clinic so she saw a different [...] little water so she was transferred to [facility] from [facility] for further assessment. She denies ENRIQUEZ, CP, SOA, n/v/d/c, abd pain, fever, chills and urinary symptoms. ROS A 10-point review of systems was completed and was negative except as noted abov e. Past Medical History: Diagnosis Date Atrial fibrillation with RVR ([facility]) 09/2018 Noted on 24 Hour Holter Chronic combined systolic and diastolic CHF, NYHA class 3 (HCC) Depression Dilated cardiomyopathy (HCC) Dysphagia hard to take pills- "stuck" Essential hypertension GERD (gastroesophageal reflux disease) skilled nursing current use of antiarrhythmic drug patch sander current use of anticoagulant therapy Mitral regurgitation [...] USING BIOPSY; Surgeon: Randi Stewart; Location: [facility] GI; Service: Gastroenterology; Laterality: N/A; FOOT [...] treatment as noted above. Joseline Marrero MD [facility] Medicine Division Please page through physician paging. . ISSION CLERK documented in this encounter Consult Notes * Chelsea Delgado MD - 02/09/2019 2:33 PM COMMISSION CLERK Associated Order(s): IP CONSULT TO CARDIOLOGY [facility] Cardiology Consult Date: 02/09/2019 Established [facility] patient: Yes: Provider: Willow Last [...] NSR. Patient anticoagulated with warfarin managed by [facility]. She met with Dr Daugherty [...] "stuck" Essential hypertension GERD (gastroesophageal reflux disease) skilled nursing current use of antiarrhythmic drug skilled nursing current use of anticoagulant therapy Mitral regurgitation [...] USING BIOPSY; Surgeon: Randi Stewart; Location: [facility] GI; Service: Gastroenterology; Laterality: N/A; ESOPHAGOGASTRODUODENOSCOPY (EGD) N/A 02/09/2019 Procedure: ESOPHAGOGASTRODUODENOSCOPY (EGD); Surgeon: Brent Tao MD; Locati on: [facility] GI; Service: Gastroenterology; Laterality: N/A; FOOT SURGERY [...] bronchitis with right basilar pneumonia/aspiration. READING SITE: [facility] EKG: Normal Sinus Rhythm at 59 [...] Family Another healthcare provider Patient's daughter present ISSION CLERK * Jenna Borges MD - 02/08/2019 12:22 PM COMMISSION CLERK Associated Order(s): IP CONSULT TO GASTROENTEROLOGY [facility] GI Inpatient New Consult Note [...] had dilation at an outside hospital and [place], [place]. There was also reportedly esophageal spasms [...] "stuck" Essential hypertension GERD (gastroesophageal reflux disease) patch sander current use of antiarrhythmic drug patch sander current use of anticoagulant therapy Mitral regurgitation [...] USING BIOPSY; Surgeon: Randi Stewart; Location: [facility] GI; Service: Gastroenterology; Laterality: N/A; FOOT [...] had dilation at an outside hospital and [place], [place]. There was also reportedly esophage al [...] this past week from outside hospital at [facility] in [place], [place] -NPO at midnight -Hold warfarin, if [...] Fellow Disclaimer: This note was dictated using WildTangent software and while checked, it m ay have unintentional errors. ATTENDING ADDENDUM I saw and examined the patient with the fellow and agree with the note as below. She has a history of EoE diagnosed by Dr. Balderas. She has recurrence of dyspha sil. No concern for food bolus impaction. Will plan for EGD tomorrow. Jenna Borges MD ISSION CLERK documented in this encounter Nursing Notes * Lissette Fairbanks RN - 02/12/2019 3:59 PM COMMISSION CLERK Returned from GI procedure. HR a-fib VR 130 Inc of stool. Extensive clean up in bed on monitor. Cardiac medications given, with pt sitting side of bed. T * Lissette Fairbanks RN - 02/12/2019 10:33 AM COMMISSION CLERK GI MD at bedside. T * Chelsea Miller, ZULLY - 02/09/2019 12:03 PM COMMISSION CLERK Stabilized, egd stopped after noted food/fluid in esophagus ISSION CLERK * Kayley Herrera RN - 02/08/2019 9:00 AM COMMISSION CLERK With AM vitals, O2 noted to be 74%. Patient has gel nailpolish on fingernails & toenails. Difficulty getting accurate read on earlobe. Patient reporting mild S OA but carrying on conversation & appeared to be in no distress. Applied 2 L NC & O2 reading 96%. Updated med-teaching resident of this during morning rounding. Patient resting comfortably, reporting no further SOA. ISSION CLERK documented in this encounter Miscellaneous Notes * Nursing Discharge - Zohaib Helton RN - 02/13/2019 2:10 PM COMMISSION CLERK Nursing Discharge Note Patient is stable for discharge. Reviewed discharge instructions and patient ve rbalized understanding, had no further questions, and left the unit in wheel galo ir with staff. Patient traveling home with in personal Vehicle. Patient/family satisfied with progress made towards goals and ready for discharg e. ISSION CLERK * Care Progression Final DC Note - Dayami Bennett RN - 02/13/2019 11:49 AM COMMISSION CLERK Final Discharge Note Final Discharge Disposition: 01-Home Self Care Discharge goal and plan is mutually agreed upon by patient Patient will discharge to: home, self care Transportation: pts family Discharge Time: appr 12-1300 Special Instructions: none ISSION CLERK * End of Shift Note - Rula Ball RN - 02/13/2019 6:02 AM COMMISSION CLERK End of Shift Summary and Plan of [...] EGD 02/08/19, mo nitor tolerance of CLD. ISSION CLERK * End of Shift Note - Lissette Fairbanks RN - 02/12/2019 5:22 PM COMMISSION CLERK End of Shift Summary and Plan of [...] Chau Christy MD - 02/12/2019 2:02 PM COMMISSION CLERK EGD Report Date: 02/12/2019 2:02 PM Patient Name: PAU PANG (age): 1950 (69) Gender: Female Endoscopist(s): MD David Landrum MD Instrument(s): Scope # 9 - EG - 600WR - Regular - Fujinon([id number]) Anesthesia Provider: Rick Sutherland MD Nurse(s): Neil [...] being detected during the procedure. The patient/patients key account representative appeared to understand the procedure, the potential complications, and alternatives; had the opportunity to ask questions; and informed consent was obtained. The risk/benefit ratio was deemed appropriate to proceed with the procedure. General Anesthesia was administered by nurse fire prevention inspector. Continuous pulse oximetry and blood pressure monitoring [...] Rula Ball RN - 02/12/2019 5:39 AM COMMISSION CLERK End of Shift Summary and Plan of [...] EGD 02/08/19, mo nitor tolerance of CLD. ISSION CLERK * End of Shift Note - Aislinn Zhong RN - 02/11/2019 5:05 PM COMMISSION CLERK End of Shift Summary and Plan of [...] EGD 02/08/19, mo nitor tolerance of CLD. ISSION CLERK * Assessment & Plan Note - Marcus Bush DO - 02/11/2019 1:28 PM COMMISSION CLERK Associated Problem(s): Aspiration pneumonia (HCC) Secondary to retained esophogeal food: -completed 3/4 days of zosyn, now has diarrhea -change to rocephin / flagyl to see if less affect on gut -repeat procalcitonin trending down ISSION CLERK * Sign-Off Note - Kristina Conrad NP - 02/11/2019 9:18 AM COMMISSION CLERK [facility] Sign-Off Note Name: Pau Wren CPI: [id number] Date of : 1950 Primary care physician: [...] y.o. female who is currently admitted to [facility] [place] under the Hospitalist service. We were consulted [...] has not required diuresis this admission. - MITER CUTTER medications include Lasix 40mg daily although patient [...] assistance to the care of this patient. ISSION CLERK * Provider Clarification Response - Marcus Bush DO - 02/11/2019 8:01 AM COMMISSION CLERK [facility] Query Respons e Note PATIENT: PAU WREN : 1950 ADMIT DATE: 02/07/2019 11:25 PM DISCH DATE: RESPONDING PROVIDER #: [id number] RESPONSE TEXT: The patient has aspiration pneumonia. [...] by: MARCUS VAUGHAN DO 02/11/2019 8:00 AM ISSION CLERK * End of Shift Note - Tomasa Foreman, ZULLY - 02/11/2019 6:44 AM COMMISSION CLERK End of Shift Summary and Plan of [...] EGD 02/08/19, mo nitor tolerance of CLD. ISSION CLERK * End of Shift Note - Kayley Herrera RN - 02/10/2019 7:49 PM COMMISSION CLERK End of Shift Summary and Plan of [...] EGD 02/08/19, mo nitor tolerance of CLD. ISSION CLERK * Nutrition Note - Lilliam Lai RD - 02/10/2019 11:50 AM COMMISSION CLERK Nutrition Assessment [facility] DIAGNOSIS & INTERVENTION: DIAGNOSIS 1 Nutrition [...] FOR CONSULT: Pos nutrition screen Patient: Pau Wrne Age: 69 y.o. : 1950 PRIMARY CARE [...] Usual Body Weight: 96.2 kg (212 lb) [place] Body Weight: 56.7 kg (125 lb) % [place] Body Weight: 159 % % Weight Loss [...] Estimated Energy Needs Total Energy Estimated Needs: 0748-7574 kcal/day Method for Estimating Needs: MSJ 1.2-1.4 Estimated Protein Needs Total Protein Estimated Needs: 57-68 gm/day Method for Estimating Needs: 1.0-1.2 gm/day Fluid Needs Total Fluid Estimated Needs: per MD MONITORING/EVALUATION: 1. Food & Nutrition Related Hx: Energy Intake 2. Anthropometrics: Weight change 3. Biochemical: Nutrition related labs 4. Nutrition-focused physical findings: GI function, skin Electronically signed by Lilliam Lai 02/10/2019 11:50 AM ISSION CLERK * Operative Note - Anthony Camilo MD - 02/10/2019 9:00 AM COMMISSION CLERK EGD Report Date: 02/10/2019 9:00 AM Patient Name: PAU PANG (age): 1950 (69) Gender: Female Endoscopist(s): Anthony Camilo MD Instrument(s): Scope # 3 - EG - 600WR - Regular - Fujinon([id number]) Anesthesia Provider: Lorie Yadav MD Nurse(s): Lorena [...] being detected during the procedure. The patient/patients key account representative appeared to understand the procedure, [...] 02/10/2019 4:02:20 PM by Anthony Camilo MD ISSION CLERK * End of Shift Note - Julio C Pineda RN - 02/10/2019 7:37 AM COMMISSION CLERK End of Shift Summary and Plan of [...] EGD 02/08/19, mo nitor tolerance of CLD. ISSION CLERK * Care Progression Initial Assessment - Dayami Bennett RN - 02/09/2019 1:27 PM COMMISSION CLERK Care Progression Initial Assessment Note Admit for [...] system has been Support System: [facility] Patient has verbalized the following concerns [...] MD and receiv es their medications from [facility][id number] [place], [place] - [address] [facility] [address] [facility] [address] [facility] [address] [facility] [facility] [address] [facility] [address] DAYAMI BENNETT RN FOOD SAFETY OFFICER [phone] ISSION CLERK * End of Shift Note - Kayley Herrera RN - 02/09/2019 12:38 PM COMMISSION CLERK End of Shift Summary and Plan of [...] EGD 02/08/19, mo nitor tolerance of CLD. ISSION CLERK * Operative Note - Brent Tao MD - 02/09/2019 9:30 AM COMMISSION CLERK EGD Report Date: 02/09/2019 9:30 AM Patient Name: PAU PANG (age): 1950 (69) Gender: Female Endoscopist(s): MD David Alonso MD Instrument(s): Scope # 6 - EG - 600WR - Regular - Fujinon([id number]) Anesthesia Provider: Dayton Hopkins MD Nurse(s): Chelsea Miller, design technology teacher: MARIN Espinosa ASA Class: P3 - 02/09/2019 [...] being detected during the procedure. The patient/patients key account representative appeared to understand the procedure, [...] 12:04:07 PM by MD David Alonso MD ISSION CLERK * End of Shift Note - Jono Negron RN - 02/09/2019 5:31 AM COMMISSION CLERK End of Shift Summary and Plan of [...] EGD 02/08/19, mo nitor tolerance of CLD. ISSION CLERK * End of Shift Note - Kayley Herrera RN - 02/08/2019 5:18 PM COMMISSION CLERK End of Shift Summary and Plan of [...] tomorrow. Faxed request for medical records to [facility] at [place], [place]. NSR on telemetry. Continuing to monitor. [...] EGD 02/08/19, mo nitor tolerance of CLD. ISSION CLERK * End of Shift Note - Jono Negron RN - 02/08/2019 4:47 AM COMMISSION CLERK End of Shift Summary and Plan of [...] Stay Nursing goal for hospital stay: Plan: ISSION CLERK * Assessment & Plan Note - Marcus Bush DO - 02/08/2019 12:56 AM COMMISSION CLERK Associated Problem(s): Paroxysmal atrial fibrillation (HCC) Currently in sinus rhythm: -continue dofetilide as PO allows -continue to hold warfarin as needs repeat EGD today ISSION CLERK * Assessment & Plan Note - Marcus Bush DO - 02/08/2019 12:56 AM COMMISSION CLERK Associated Problem(s): Essential hypertension Continue coreg ISSION CLERK * Assessment & Plan Note - Marcus Bush DO - 02/08/2019 12:55 AM COMMISSION CLERK Associated Problem(s): Depression Continue Paxil ISSION CLERK * Assessment & Plan Note - Marcus Bush DO - 02/08/2019 12:54 AM COMMISSION CLERK Associated Problem(s): Esophageal dysphagia Concern for esophageal stricture s/p dilatation at outside hospital: -history of eosinophilic esophagitis -failed EGD attempt with possible aspiration 02/09 -repeat EGD 02/10/19 without stricture, clinical concern for achalasia -failed trial of clear liquid diet -plan Botox today as did not tolerate PO ISSION CLERK * Hospital Course - Marcus Bush DO - 02/08/2019 12:45 AM COMMISSION CLERK 69 y.o. female with h/o Afib on [...] Her PCP was unable to reach the [facility] GI clinic so she saw a different [...] little water so she was transferred to [facility]. During EGD Attempt 02/09/2019, she appeared to aspirate secondary to retained flu id and food in her esophagus. Repeat EGD done 02/10/19 did not find evidence of retained food or stricture. GI suspects achalasia and recommends outpatient man ometry at [facility] as outpatient. She will be started on clear liquid diet and initially tolerated but then could not keep down even pills. She continues to bring up frothy substance. ISSION CLERK documented in this encounter Plan of Treatment Not on filedocumented as of this encounter Procedures Comments Procedure Name Priority Date/Time Associated Diag nosis ESOPHAGOGASTRODUODENOSCOP 02/12/2019 Achalasia Y, WITH BOTULINUM TOXIN 2:42 PM COMMISSION CLERK INJECTION Special Needs Dysphagia. Plan for Botox injection for suspected achalasia. Consider intubation due to previous aspiration . CLOSTRIDIUM DIFFICILE STAT 02/12/2019 TOXIN BY PCR 10:45 AM COMMISSION CLERK PROTHROMBIN TIME/INR Routine 02/12/2019 1:25 AM COMMISSION CLERK PROCALCITONIN Routine 02/12/2019 1:25 AM COMMISSION CLERK COMPLETE BLOOD COUNT Routine 02/12/2019 1:25 AM COMMISSION CLERK B12/FOLATE Add-On 02/10/2019 10:00 AM COMMISSION CLERK RENAL PANEL Routine 02/10/2019 9:59 AM COMMISSION CLERK PROTHROMBIN TIME/INR STAT 02/10/2019 9:[address] CHEST W CONTRAST Routine 02/10/2019 9:29 AM COMMISSION CLERK PROCALCITONIN Routine 02/10/2019 2:45 AM COMMISSION CLERK COMPLETE BLOOD COUNT Routine 02/10/2019 2:45 AM COMMISSION CLERK XR CHEST SINGLE VIEW Routine 02/09/2019 FRONTAL 12:26 PM COMMISSION CLERK XR OUTSIDE IMAGES FOR Routine 02/09/2019 Encounte r for PACS 7:05 AM COMMISSION CLERK consultation XR ABDOMEN OUTSIDE IMAGES Routine 02/09/2019 Enco unter for FOR PACS 7:05 AM COMMISSION CLERK consultation PROTHROMBIN TIME/INR Routine 02/08/2019 12:14 PM COMMISSION CLERK ECG Routine 02/08/2019 1:12 AM COMMISSION CLERK PROTHROMBIN TIME/INR Routine 02/08/2019 1:00 AM COMMISSION CLERK COMPREHENSIVE METABOLIC Routine 02/08/2019 PANEL 1:00 AM COMMISSION CLERK CBC AND DIFF (MANUAL DIFF Routine 02/08/2019 IF NECESSARY) 1:00 AM COMMISSION CLERK documented in this encounter Results * Clostridium Difficile Toxin by PCR (02/12/2019 10:45 AM COMMISSION CLERK) C difficile Not DetectedComment: NEGATIVE Not Detected [facility] for C. difficile toxin by PCR Hospita l Lab Specimen Stool Performing Organization Address City/State/Zipcode Ph one Number [address] [address] LABORATORIES [facility] [address] [place] [address] * Prothrombin Time/INR (02/12/2019 1:25 AM COMMISSION CLERK) Only the most recent of 4 results within the time period is included. Protime 17.6 (H) 11.4 - 15.0 sec [facility] Lab INR 1.5 (H) 0.8 - 1.2 [facility] Lab Specimen Blood Performing Organization Address City/[facility] Ph one Number [address] [address] LABORATORIES [facility] [address] [place] [address] * Complete Blood Count (02/12/2019 1:25 AM COMMISSION CLERK) Only the most recent of 2 results within the time period is included. WBC 6.08 4.00 - 11.00 TH/uL [facility] Lab RBC 3.27 (L) 4.00 - 5.00 MIL/uL [facility] Hemoglobin 10.7 (L) 12.0 - 15.0 g/dL [facility] Hematocrit 31 (L) 36 - 45 % [facility] Lab MCV 95 80 - 99 fL [facility] Lab MCH 33 27 - 34 pg [facility] Lab MCHC 35 32 - 36 % [facility] Lab RDW 11.9 11.5 - 14.5 % [facility] Lab Platelet Count 225 140 - 400 TH/uL [facility] Lab MPV 10.4 9.4 - 12.3 fL [facility] Lab Nucleated RBCs 0 0 - 0 /100 [facility] Lab Specimen Blood Performing Organization Address City/[facility] Ph one Number [address] [address] LABORATORIES [facility] [address] [place] [address] * Procalcitonin (02/12/2019 1:25 AM COMMISSION CLERK) Only the most recent of 2 results within the time period is included. Procalcitonin 0.51 (H) 0.00 - 0.10 ng/mL [facility] Comment: Hospital Lab PCT Value Interpretation 0.10 [...] procalcitonin levels. Specimen Blood Performing Organization Address [facility] Ph one Number [address] [address] LABORATORIES [facility] [address] [place] [address] * B12/Folate (02/10/2019 10:00 AM COMMISSION CLERK) VITAMIN B12 306 239 - 931 pg/mL [facility] Lab Folate 9.2 3.4 - 20.0 ng/mL [facility] Lab Specimen Blood Performing Organization Address [facility] Ph one Number [address] [address] LABORATORIES [facility] [address] [place] [address] * Renal Panel (02/10/2019 9:59 AM COMMISSION CLERK) Sodium 138 133 - 147 MEQ/L [facility] Potassium 3.6 3.5 - 5.3 MEQ/L [facility] Lab Chloride 106 96 - 112 MEQ/L [facility] Lab Carbon Dioxide 22 20 - 32 MEQ/L [facility] Lab Anion Gap 10 5 - 17 [facility] Lab Calcium 8.2 (L) 8.4 - 10.5 mg/dL [facility] Lab Glucose 73 70 - 100 mg/dL [facility] Lab Albumin 3.1 (L) 3.5 - 5.0 g/dL [facility] Lab Blood Urea 17 7 - 26 mg/dL [facility] Lab Creatinine 0.8 0.4 - 1.1 mg/dL [facility] Lab eGFR Female AA 85 60 - 200 [facility] mL/min/1.73sq m [facility] Lab eGFR Female 71 60 - 200 [facility] Non-AA mL/min/1.73sq m Hospital Lab Phosphorus 3.7 2.5 - 4.5 mg/dL [facility] Lab Specimen Blood Performing Organization Address City/State/Zipcode Ph one Number [facility] [address] [place] [address] LABORATORIES [facility] [address] [place] [address] * CT Chest w contrast (02/10/2019 9:29 AM COMMISSION CLERK) Specimen Impressions Performed At 1. Thickening of [...] or edited the final report. READING SITE: [facility] Narrative Performed At Patient: PAU WREN Sex#: F #: [id number] Natacha #: [id number] Location: [facility] 7410-01 Accession# : [id number] Procedure Requested: [id number] CT CHEST W CONTRAST Reason for Exam: [...] Rad Results In - 02/10/2019 12:58 PM COMMISSION CLERK Patient: PAU WREN Sex#: F #: [id number] Natacha#: [id number] Location: [facility] 7410-01 Procedure Requested: [id number] CT CHEST W CONTRAST Reason for Exam: [...] or edited the final report. READING SITE: [facility] Performing Organization Address City/State/Zipcode Ph one Doc [facility] * XR Chest single view frontal (02/09/2019 12:26 PM COMMISSION CLERK) Specimen Impressions Performed At 1. Findings are suggestive of bronchitis with right b asilar REAGANKESSON pneumonia/aspiration. READING SITE: [facility] Narrative Performed At Patient: PAU WREN Sex#: F #: [id number] Natacha #: [id number] Location: [facility] E7E 7410-01 Accession# : [id number] Procedure Requested: [id number] XR CHEST SINGLE VIEW FRONTAL Reason for [...] Rad Results In - 02/09/2019 12:35 PM COMMISSION CLERK Patient: PAU WREN Sex#: F #: [id number] Natacha#: [id number] Location: [address] [address] Procedure Requested: [id number] XR CHEST SINGLE VIEW FRONTAL Reason for [...] bronchitis with right basilar pneumonia/aspiration. READING SITE: [facility] Performing Organization Address [facility] one Number [facility] * XR Outside images for PACS (02/09/2019 7:05 AM COMMISSION CLERK) Specimen Performing Organization Address [facility] one Number [facility] * XR Outside images for PACS Abdomen (02/09/2019 7:05 AM COMMISSION CLERK) Specimen Performing Organization Address [facility] one Number [facility] * Electrocardiogram (ECG) (02/08/2019 1:12 AM COMMISSION CLERK) QRSd 106 TRACEMASTER QT 448 TRACEMASTER QTC 444 TRACEMASTER ECGHR 59 TRACEMASTER ECGPR 192 TRACEMASTER Specimen Narrative Performed At [facility] Test Date: 2019-02-08 Pat Name: PAU WREN Department: 56 Room: 7410 Gender: Female Audit Manager: [id number] : 1950 Requested By: JOSELINE MARRERO Order Number: [id number] Reading MD: Brent Agarwal Measurements Intervals [place] Rate: 59 P: 39 [place]: 192 QRS: 16 QRSD: 106 T: 41 QT: 448 QTc: 444 Interpretive Statements SINUS RHYTHM Electronically Signed On 02-08-2019 10:2 9:19 COMMISSION CLERK by Brent Agarwal Procedure Note Interface, External Ris In - 02/08/2019 10:29 AM COMMISSION CLERK [facility] Test Date: 2019-02-08 Pat Name: PAU WREN Department: 56 Room: 7410 Gender: Female Audit Manager: [id number] : 1950 Requested By: JOSELINE MARRERO Order Number: [id number] Reading MD: Brent Agarwal Measurements Intervals [place] Rate: 59 P: 39 [place]: 192 QRS: 16 QRSD: 106 T: 41 QT: 448 QTc: 444 Interpretive Statements SINUS RHYTHM Electronically Signed On 02-08-2019 10:29:19 COMMISSION CLERK by Brent Agarwal Performing Organization Address City/State/Zipcode Ph one Number [facility] * CBC and Diff (manual diff if necessary) (02/08/2019 1:00 AM COMMISSION CLERK) WBC 6.60 4.00 - 11.00 TH/uL [facility] Lab RBC 3.52 (L) 4.00 - 5.00 MIL/uL [facility] Lab Hemoglobin 11.7 (L) 12.0 - 15.0 g/dL [facility] Lab Hematocrit 34 (L) 36 - 45 % [facility] Lab MCV 97 80 - 99 fL [facility] Lab MCH 33 27 - 34 pg [facility] Lab MCHC 34 32 - 36 % [facility] Lab RDW 12.5 11.5 - 14.5 % [facility] Lab Platelet Count 162 140 - 400 TH/uL [facility] Lab MPV 11.1 9.4 - 12.3 fL [facility] Lab Nucleated RBCs 0 0 - 0 /100 [facility] % Neutrophils 74 45 - 78 % [facility] Lab %Lymphocytes 16 15 - 47 % [facility] Lab %Monocytes 9 0 - 12 % [facility] Lab %Eosinophils 2 0 - 7 % [facility] Lab %Basophils 1 0 - 2 % [facility] % Imm Grans 0 0 - 1 % [facility] # Granulocytes 4.87 1.70 - 6.80 TH/uL [facility] Lab # Lymphocytes 1.02 1.00 - 3.30 TH/uL [facility] Lab # Monocytes 0.56 0.20 - 0.90 TH/uL [facility] Lab # Eosinophils 0.11 0.00 - 0.40 TH/uL [facility] Lab # Basophils 0.03 0.00 - 0.10 TH/uL [facility] Lab Specimen Blood Performing Organization Address City/State/Zipcode Ph one Number [address] [address] LABORATORIES [facility] [address] [place] [address] * Comprehensive Metabolic Panel (02/08/2019 1:00 AM COMMISSION CLERK) Sodium 141 133 - 147 MEQ/L [facility] Lab Potassium 3.8 3.5 - 5.3 MEQ/L [facility] Lab Chloride 110 96 - 112 MEQ/L [facility] Lab Carbon Dioxide 24 20 - 32 MEQ/L [facility] Lab Anion Gap 7 5 - 17 [facility] Lab Calcium 8.9 8.4 - 10.5 mg/dL [facility] Lab Glucose 93 70 - 100 mg/dL [facility] Lab Protein Total 6.4 6.0 - 8.2 g/dL [facility] Serum [facility] Lab Albumin 3.5 3.5 - 5.0 g/dL [facility] Lab Alkaline 53 42 - 140 IU/L [facility] Lab Alanine 18 0 - 34 IU/L [facility] Lab e Aspartate 25 15 - 46 IU/L [facility] Lab e Bilirubin Total 0.8 0.2 - 1.3 mg/dL [facility] Lab Blood Urea 22 7 - 26 mg/dL [facility] Lab Creatinine 0.9 0.4 - 1.1 mg/dL [facility] Lab eGFR Female AA 74 60 - 200 [facility] mL/min/1.73sq m Hospital Lab eGFR Female 62 60 - 200 [facility] Non-AA mL/min/1.73sq m [facility] Lab Specimen Blood Performing Organization Address City/State/Zipcode Ph one Number [facility] [address] [place] [address] LABORATORIES [facility] [address] [place] [address] documented in this encounter Visit Diagnoses Diagnosis Achalasia Achalasia and cardiospasm documented in this encounter Administered Medications Action Date Dose Rate Site Medication Order MAR Action 02/08/2019 1:24 PM COMMISSION CLERK 650 mg acetaminophen (TYLENOL) 650 mg/20.3 mL Given solution 325-650 mg 325-650 mg, Oral, Every 6 hours PRN, mild pain (pain score 1-3), Indications : fever, pain, Starting 02/08/19 at 1259, Do not exceed 4 GM/DAY of acetaminophen. If 65 or older do not exceed 3 GM/DAY. If chronic alcoholic d o not exceed 2 GM/DAY., 02/12/2019 3:00 PM COMMISSION CLERK 100 Units Esophagu s botulinum toxin Type A (BOTOX) injection Given 100 Units 100 Units, Injection, Once, Indications : achalasia of esophagus, Gabby 02/12/19 at 1330, For 1 dose, Intra-op 02/13/2019 8:35 AM COMMISSION CLERK 3 mg budesonide (ENTOCORT EC) 24 hr capsule 3 Given mg 3 mg, Oral, Daily, Indications: infection, eosinophilic esophagitis, First dose on 02/08/19 at 0900, DO NOT CRUSH OR CHEW., 3 mg Given 02/11/2019 8:22 AM COMMISSION CLERK 3 mg Given 02/08/2019 10:04 AM COMMISSION CLERK 02/13/2019 8:36 AM COMMISSION CLERK 25 mg carvedilol (COREG) tablet 25 mg Given 25 mg, Oral, 2 times daily, First dose on Sat02/10/19 at 2100 25 mg Given 02/12/2019 9:17 PM COMMISSION CLERK 25 mg Given 02/12/2019 4:17 PM COMMISSION CLERK 02/13/2019 11:03 AM COMMISSION CLERK 2 g 100 mL/hr cefTRIAXone (ROCEPHIN) 2 g in sodium New Bag chloride ADDV (NS) 50 mL IVPB 2 g, Intravenous, at 100 mL/hr, Daily, Indications: pneumonia, First dose on Gabby 02/12/19 at 1000, For 7 doses 2 g 100 mL/hr New Bag 02/12/2019 11:22 AM COMMISSION CLERK 02/13/2019 5:12 AM COMMISSION CLERK 125 mcg dofetilide (TIKOSYN) capsule 125 mcg Given 125 mcg, Oral, Every 12 hours, Indications: cardioversion of atrial fibrillation, paroxysmal supraventricular tachycardia, First dos e on [place] 02/08/19 at 0045, DO NOT CRUSH OR CHEW., 125 mcg Given 02/12/2019 4:16 PM COMMISSION CLERK 125 mcg Given 02/11/2019 8:35 PM COMMISSION CLERK 02/13/2019 8:35 AM COMMISSION CLERK 40 mg esomeprazole (NexIUM) capsule 40 mg [...] , 40 mg Given 02/12/2019 4:15 PM COMMISSION CLERK 40 mg Given 02/11/2019 5:16 PM COMMISSION CLERK hydrALAZINE (APRESOLINE) injection 10 m g 10 mg, Intravenous, Every 6 hours PRN, high blood pressure, for SBP > 170 or DBP > 100, Starting [place] 02/08/19 at 0055 02/12/2019 4:19 PM COMMISSION CLERK 15 mg ketorolac (TORADOL) injection 15 mg Given 15 mg, Intravenous, Every 6 hours PRN, moderate pain (pain score 4-6), severe pain (pain score 7-10), Starting 02/09/19 at 1404, For 5 days 15 mg Given 02/12/2019 12:43 PM COMMISSION CLERK 15 mg Given 02/10/2019 8:12 AM COMMISSION CLERK magnesium sulfate IVPB 2 gram (premix) 2 g, Intravenous, at 25 mL/hr, As needed, standard electroyte replacement , Starting [place] 02/08/19 at 0327, Replace i n addition [...] (if able to monitor)., 02/13/2019 11:41 AM COMMISSION CLERK 500 mg 200 mL/hr metroNIDAZOLE (FLAGYL) IVPB 500 mg New Bag 500 mg, Intravenous, Administer over 30 Minutes, Daily, Indications: ASPIRATION PNEUMONIA, First dose on Gabby 02/12/19 at 1000, Bag 1 of 2 Avoid Alcohol in Food and Drinks, 500 mg 200 mL/hr New Bag 02/12/2019 11:25 AM COMMISSION CLERK 02/13/2019 12:20 PM COMMISSION CLERK 500 mg 200 mL/hr metroNIDAZOLE (FLAGYL) IVPB 500 mg New Bag 500 mg, Intravenous, Administer over 30 Minutes, Daily, Indications: ASPIRATION PNEUMONIA, First dose on Gabby 02/12/19 at 1000, Bag 2 of 2 Avoid Alcohol in Food and Drinks, 500 mg 200 mL/hr New Bag 02/12/2019 12:05 PM COMMISSION CLERK 02/13/2019 8:36 AM COMMISSION CLERK 10 mg PARoxetine (PAXIL) tablet 10 mg Given 10 mg, Oral, Daily, Indications: anxiet y with depression, First dose on 02/08/19 at 0900 10 mg Given 02/12/2019 4:16 PM COMMISSION CLERK 10 mg Given 02/11/2019 8:24 AM COMMISSION CLERK potassium bicarb-citric acid (EFFER-K) effervescent tablet 20 [...] Infection Onset Date 02/12/2019 02/12/2019 12:39 PM COMMISSION CLERK C.Difficile - Rule Out 02/12/2019 documented as of this encounter
--- OUTSIDE RECORDS SUMMARY | 2019-08-31 23:33 | XMS REPORT | Encounter Summary ---
Author Author [facility] Organization [facility] Address Unknown Phone Unavailable Care Team Providers Care Fishing Hand Name Role Phone Yulissa Zapata PCP Reason for Visit * Auth/Cert (Routine) Referred By Contact Referred To Contact Status Reason Specialty Diagnoses / Procedures Rosendo King MD [address] [facility] [place] [address] New Request Procedures Case request operating room: ESOPHAGOGASTRODUOD ENOSCOPY (EGD) Encounter Details Care Team Description Date Type Department SandeepRaúlDaytonDO [address] [place], [place] [id number] Brent Tao MD [address] [facility] [address] [place] [address] [phone] 02/09/[facility] [address] [place], [place] [id number] Anesthesia Record Responsible Anesthesiologist Anesthesia Start Time [...] Dayton Hopkins DO - 02/09/2019 1:58 PM AIR FILLER Anesthesia Post Evaluation Procedure(s):ESOPHAGOGASTRODUODENOSCOPY (EGD) Surgeon: Brent [...] SpO2 96 % filed at 02/09/2019 1245 FILLER * Anesthesia Preprocedure Evaluation - Dayton Hopkins DO - 02/09/2019 10:39 AM AIR FILLER Anesthesia Evaluation Patient summary reviewed No history [...] and spontaneous ventilation Plan discussed with anesthesiologist assistant professor sculpture and resident. Anesthetic plan and risks discussed with patient. Center Sales And Service Associate utilized: No Recovery plan: PACU Risk factors for PONV: female PONV Risk: low Plan for PONV Prophylaxis to include: propofol infusion FILLER documented in this encounter Plan of Treatment Not on filedocumented as of this encounter Visit Diagnoses Not on filedocumented in this encounter Administered Medications Action Date Dose Rate Site Medication Order MAR Action 02/09/2019 11:34 AM AIR FILLER 50 mL/hr lactated ringers infusion New Bag Continuous PRN, Starting 02/09/19 at 1134, Anesthesia Intra-op 02/09/2019 11:43 AM AIR FILLER 50 mg lidocaine (pf) (XYLOCAINE-MPF) 10 mg/mL Given (1 %) injection As needed, Starting 02/09/19 at 1143 , Anesthesia Intra-op 02/09/2019 12:02 PM AIR FILLER 100 mcg phenylephrine HCl in 0.9% NaCl Given (NEOSYNEPHRINE) 1 mg/10 mL (100 mcg/mL) injection As needed, Starting 02/09/19 at 1149 , Anesthesia Intra-op 100 mcg Given 02/09/2019 11:56 AM AIR FILLER 100 mcg Given 02/09/2019 11:49 AM AIR FILLER 02/09/2019 11:52 AM AIR FILLER 80 mg propofol (DIPRIVAN) injection Given As needed, Starting 02/09/19 at 1143 , Anesthesia Intra-op 50 mg Given 02/09/2019 11:49 AM AIR FILLER 50 mg Given 02/09/2019 11:46 AM AIR FILLER documented in this encounter
--- OUTSIDE RECORDS SUMMARY | 2019-08-31 23:34 | XMS REPORT | Encounter Summary ---
Author Author [facility] Organization [facility] Address Unknown Phone Unavailable Care Team Providers Care Light Adjuster Name Role Phone Yulissa Zapata PCP Reason for Visit * Auth/Cert Referred By Contact Referred To Contact Status Reason Specialty Diagnoses / Procedures Diagnoses DYSPHAGIA P rocedures DE ESOPHAGOGASTRODUOD ENOSCOPY TRANSORAL DIAGNOSTIC ESOPHAGOGASTRODUOD ENOSCOPY (EGD) Encounter Details Care Team Description Date Type Department Yulissa Harkins MD [address] [place] [address] [place] [address] Kiara Swain, DO [address] [place] [address] [phone] 01/01/2019 Anesthesia [facility] [address] [place] [address] Anesthesia Record Responsible Anesthesiologist Anesthesia Start Time Anesthesi a Stop Time Procedure Name Yulissa Harkins MD 01/01/19 1005 01/01/19 1017 ESOPHAGOGASTRODUODENOSCOP Y, USING BIOPSY (N/A ) Date Time Event Comment 741 Anesthesia 2019 Initial Contact 0942 [id number] AN Equip Check 1005 In room 1005 [...] Anesthesia Postprocedure Evaluation - Nirav Hong RN ELECTRIC METER REPAIRER HELPER - 01/01/2019 10:53 AM CDT Anesthesia Post [...] = Loose V = Veneer Image = Ranger Pulmonary Breath sounds clear to auscultation, (+) [...] with spouse and patient. Plan discussed with ELECTRIC METER REPAIRER HELPER. Recovery plan: Phase II Notes Check INR [...]
--- OUTSIDE RECORDS SUMMARY | 2019-08-31 23:34 | XMS REPORT | Encounter Summary ---
Author Author [facility] Organization [facility] Address Unknown Phone Unavailable Care Team Providers Care Scoop Machine Operator Name Role Phone Yulissa Zapata PCP Encounter Details Care Team Description Date Type Department Dayton Daugherty MD [address] [facility] [address] [place] [address] [phone] 12/30/2018 [facility] al Encounter [address] [place] [address] Social History Date Tobacco Use Types Packs/Day [...] encounter Miscellaneous Notes * CV Lab Pre-Procedure Grant Officer Note - Marcia Kelsey RN - 08/31/2019 2:31 PM CDT Pt states she just had an EGD and has a surgery consult for achalasia. She state s she will call us back once she knows the plan. If she doesn't call back, will need to drop 10/05 hold. * CV Lab Pre-Procedure Grant Officer Note - Marcia Kelsey RN - 08/31/2019 2:04 PM CDT LMOM for pt to call back and schedule procedure. * CV Lab Pre-Procedure Grant Officer Note - Tamica Emmanuel RN - 08/27/2019 4:33 PM CDT Dayton Daugherty MD 3 days ago Since she is taking Tikosyn, then reasonable to take a bid med-Eliquis fine, oth eralmas nancyagnes Thanks bmr Documentation Angelique Hamilton RN You; Dayton Daugherty MD; [facility] Cv Lab Schedulers 3 days ago No, when I spoke to pt, she was informed we would like want her to transition to NOAC and she was agreeable. She was planning to call following EGD (schededuled 08/27) to discuss transition. BMR: what were you wanting to transition her to? * CV Lab Pre-Procedure Grant Officer Note - Anastasiia Pop RN - 08/24/2019 12:28 PM CDT Holding 10/05 * CV Lab Pre-Procedure Grant Officer Note - Tracey Gutierrez RN - 08/21/2019 12:27 PM CDT Switching to NOAC post egd per BMR * CV Lab Pre-Procedure Grant Officer Note - Tracey Gutierrez RN - 08/21/2019 12:26 PM CDT ZULLY Bernal; Dayton Daugherty MD; Nirav Keys LPN; [facility] Ep Nurses; [facility] Cv Lab Schedulers; [facility] 7 minutes ago [...] to NOAC Documentation * CV Lab Pre-Procedure Grant Officer Note - Tamica Emmanuel RN - 08/21/2019 12:17 PM CDT HOLD on 10/08 just to have something to offer in range * CV Lab Pre-Procedure Grant Officer Note - Anastasiia Pop RN - 08/19/2019 5:11 PM CDT Called pt--EGD sched 08/27 at , wants a call 08/30 to pick a date -- no holds-- anxious to sched - needs 4 weeks Inrs. * CV Lab Pre-Procedure Grant Officer Note - Yulissa Wilkerson RN - 08/10/2019 3:04 PM CDT Left message on machine w/ request for call back to let us know if she had GI ap pointment at , EGD and if ready to schedule VIRGILIO. * CV Lab Pre-Procedure Grant Officer Note - Tamica Emmanuel RN - 07/30/2019 [...] weeks of INRs. * CV Lab Pre-Procedure Grant Officer Note - Leslie Marcial RN - 07/15/2019 3:40 PM CDT Pt has returned from [place], is stressed, and wants to schedule ablation. She i s a 4. Sent to BMR nurses to call her to see if needs re-evaluated. * CV Lab Pre-Procedure Grant Officer Note - Tracey Gutierrez RN - 05/20/2019 10:01 AM CDT Pt to see [facility] on July 28. Asked us to f/u beginning of August. Does not want to h old any dates. * CV Lab Pre-Procedure Grant Officer Note - Yulissa Wilkerson RN - 04/24/2019 1:23 PM FILLING OPERATOR Pt has been unable to make appointment w/ [facility] specialist because he has not re ceived her medical records yet. She has left messages w/ request for call back f rom GI @ [facility] which have gone unreturned thus far. Requested call back to let us know when GI consult scheduled. We will f/u w/ her if we have not heard back fr om her in two weeks. At that time if OV not scheduled we will need to drop June hold for VIRGILIO and hold later date. Patient returning from [place] late May, co nfirmed she is still taking OAC. ING OPERATOR * CV Lab Pre-Procedure Grant Officer Note - Yulissa Wilkerson RN - 04/13/2019 3:28 PM FILLING OPERATOR Discussed scheduling VIRGILIO w/ BMR in [...] she speaks w/ GI doctor next w [facility]. Needs OV to update H&P, four weeks of therapeutic INR's. May need anesthesia consult per previous note from Tamica. ING OPERATOR * CV Lab Pre-Procedure Grant Officer Note - Tamica Emmanuel RN - 04/08/2019 4:27 PM FILLING OPERATOR HOLD 06/30. Pt is in [place] but ok ot ask her if day ok to get on sched. ING OPERATOR * CV Lab Pre-Procedure Grant Officer Note - Yulissa Willard RN - 04/07/2019 3:45 PM FILLING OPERATOR Trying to get full days for BMR on 06/14 and 06/30. Put [place] on 06/14 and Estelle on 06/30? ING OPERATOR * CV Lab Pre-Procedure Grant Officer Note - Tamica Emmanuel RN - 03/24/2019 11:02 AM FILLING OPERATOR Discussed scheduling VIRGILIO with BMR. Pt states has been doing well on tikosyn wit h fewer episodes of afib. Pt is still waiting on motility study results. Pt wa nts to schedule at end of June as she is in [place] now for winter. Told pt will call when June schedule built and find a date and pt vu. ING OPERATOR * CV Lab Pre-Procedure Grant Officer Note - Tamica Emmanuel RN - 03/20/2019 8:30 AM FILLING OPERATOR No notes of results on motility study but report looks not good. Will hold to see if have report next week and call Saturday - can decide then if need to mak ge the hold ING OPERATOR * CV Lab Pre-Procedure Grant Officer Note - Tamica Emmanuel RN - 03/14/2019 5:45 AM FILLING OPERATOR Pt has motility study 03/16. She has [...] need to have her see anesthesia pre-op ING OPERATOR * CV Lab Pre-Procedure Grant Officer Note - Tamica Emmanuel RN - 03/13/2019 7:41 AM FILLING OPERATOR Pt cancelled 03/13 ov with TMB. Will move to fu motility study results after 03/16 study. Will leave hold on 04/08 but would have to start weeky INRs stat Will think about moving hold to 04/30 ING OPERATOR * CV Lab Pre-Procedure Email Note - Tamica Emmanuel RN - 03/12/2019 8:08 AM FILLING OPERATOR From: CV Lab Scheduling Sent: March 8:08 AM To: Lorena Guzman <[email or web address]> Cc: [facility]-EP Nurses <[email or web address]> Subject: Brynn Mccabe 46 Happy 2019! You [...] Tamica Emmanuel RN, BSN CV Lab System Team Guide ING OPERATOR * CV Lab Pre-Procedure Grant Officer Note - Tamica Emmanuel RN - 02/25/2019 7:54 AM FILLING OPERATOR Patient is scheduled for motility study 03/16 at [facility]. OV sched with [facility] 1/3. The [...] on 03/12 before of about hold, etc. ING OPERATOR * CV Lab Pre-Procedure Grant Officer Donal - Tamica Emmanuel RN - 02/16/2019 4:20 PM FILLING OPERATOR Dc summary reviewed: Procedures: 1. EGD: 02/09/19, [...] just to have something) status on OAC ING OPERATOR * CV Lab Pre-Procedure Grant Officer Note - Tamica Emmanuel RN - 02/09/2019 4:34 PM FILLING OPERATOR HOLD on 04/08 to have something to offer On 02/12 still ip for esophageal dysphagia and aspiration pneumonia from second E GD. Trying clear liquid diet. Home tomorrow if tolerates. Warfarin still o n hold pending decision on repeat EGd and or botox if can't eat. ING OPERATOR * CV Lab Pre-Procedure Grant Officer Note - Tamica Emmanuel RN - 02/09/2019 2:31 PM FILLING OPERATOR ip admit for esophagitis continues. -- Warfarin [...] hold warfarin as repeat EGD likely needed ING OPERATOR * CV Lab Pre-Procedure Grant Officer Note - Anastasiia Pop RN - 02/09/2019 2:06 PM FILLING OPERATOR IP for allergic, chronic esophagitis (closed up, poss aspiration w/ EGD attempt, will do AIDEN w/ anesth), cant take pills per Lakshmi Vicente. ING OPERATOR * CV Lab Pre-Procedure Grant Officer Note - Tamica Emmanuel RN - 01/08/2019 3:24 PM CDT Discussed scheduling VIRGILIO and explained BMR schedule full thru end of year. Pt i s anxious to schedule and would like call with cx if has weeks notice. Pt and f amily moving to [place] for winter but she will return for ablation at any time. * CV Lab Pre-Procedure Grant Officer Note - Yulissa Wilkerson RN - 01/07/2019 5:18 PM CDT Spoke briefly w/ patient about scheduling VIRGILIO w/ BMR. She has a house full of co rafael and would like a call back tomorrow. She has been in [place] last 3 weeks. * CV Lab Pre-Procedure Grant Officer Note - Tamica Emmanuel RN - 01/06/2019 8:03 AM CDT Nothing to offer around [place] now -- call and get the details [...] if comes open * CV Lab Pre-Procedure Grant Officer Note - Tamica Emmanuel RN - 01/05/2019 11:24 AM CDT CTA being done 01/05. Pt wants VIRGILIO week around [place]. * CV Lab Pre-Procedure Grant Officer Note - Tamica Emmanuel RN - 01/05/2019 11:22 AM CDT From BMR ovl: She does live in [place] for the year. Therefore, it is possible [...] would likely require follow up with a leather production machine operator in [place]. She does understand the concepts and she does agree to proceed. We will therefo re make arrangements for her to have a CT angiogram. We will order the ablation with the intention of possibly postponing it until the spring if that is her de sire. * CV Lab Pre-Procedure Email Note - Anastasiia Pop RN - 12/30/2018 5:45 PM CDT From: Reina Bacon <[email or web address]> Sent: Sunday, December 30, 2018 3:34 PM To: Tamica Correa <[email or web address]>; CV Lab Scheduling < [email or web address]>; DL-[email or web address] Nurses <[email or web address]>; DL-[facility]-CV Imaging Scheduling <[email or web address]>; Lorena Severino <[email or web address]>; French Garner <[email or web address]> Subject: Re: Brynn Mccabe 1950 only opening is at [facility] at 0800 this 01-01-19 pt has an EGD at [facility] d ate/time. Lorena/French can you assist. Thanks From: Tamica Correa <[email or web address]> Sent: Sunday, December 30, 2018 12:54 PM To: CV Lab Scheduling <[email or web address]>; [facility]-EP Nurses < [email or web address]>; [facility]-CV Imaging Scheduling < [email or web address]> Subject: Brynn Mccabe 1950 CV scheduling: BMR will be talking to you regarding this patient and scheduling plan. They leave for [facility] Jan 09- and would like to have the VIRGILIO done the week around [place] when they are back in [facility]. CV Imaging: patient would like to have the pre-EP CT done by Jan 09 or when they will leave for [place]. I did NOT make any guarantee this [...] Infection Onset Date 02/12/2019 02/12/2019 12:39 PM FILLING OPERATOR C.Difficile - Rule Out 02/12/2019 documented as of this encounter
--- OUTSIDE RECORDS SUMMARY | 2019-08-31 23:34 | XMS REPORT | Encounter Summary ---
Author Author [facility] Organization [facility] Address Unknown Phone Unavailable Care Team Providers Care Pyrometer Operator Name Role Phone Yulissa Zapata PCP Reason for Referral * Surgical (Routine) Referred By Contact Referred To Contact Status Reason Specialty Diagnoses / Procedures Justin De La Torre MD [address] [address] [facility] [address] [address] [place] [address] Closed Gastroenterology Diagnoses Esophageal dysphagia Gastroesophageal reflux disease, esophagitis presence not specified P rocedures Motility study, esophageal Reason for Visit * Reason Comments Appointment Referral request received f rom Chacho Kang [employer] for out pt EMS for achalasia and dysphagia. Encounter Details Care Team Description Date Type Department Gretel Elmore RN Appointment (Referral request received f rom Chacho Kang [employer] for out pt EMS for achalasia and dysphagia.) 02/03/2019 Telephone [facility] [id number] [place] [address] Social History Date Tobacco Use [...] Licha Madden RN - 02/17/2019 7:50 AM DATA INPUT CLERK Referral request received from Chacho Kang APRN for out pt EMS for achalasia an d dysphagia. LMOM asking pt to call me back at my direct number INPUT CLERK * Telephone Encounter - Licha Madden RN - 02/17/2019 7:47 AM DATA INPUT CLERK ----- Message from Don Kang NP sent at 02/13/2019 5:22 PM DATA INPUT CLERK ----- Regarding: Needs EMS to assess for achalasia Judy, Pt was inpatient and discharged today. She needs workup for achalasia with EMS. She had recent EGD with botox. Is there anyway that she would be able to have EM S scheduled in next few weeks? Thanks, Chacho Crockett INPUT CLERK * Telephone Encounter - Gretel Elmore RN - 02/03/2019 2:08 PM DATA INPUT CLERK Pt's PCP calling to speak with Dr. [...] Pt is currently admitted at [facility]. Thanks INPUT CLERK documented in this encounter Plan of Treatment Not on filedocumented as of this encounter Results * Motility study, esophageal (03/16/2019 4:03 PM DATA INPUT CLERK) Narrative Performed At This result has an attachment that is n ot available. documented in this encounter Visit Diagnoses Diagnosis Esophageal dysphagia Dysphagia, pharyngoesophageal phase Gastroesophageal reflux disease, esopha gitis presence not specified documented in this encounter Additional Health Concerns Last Indicated Resolved Time Infection Onset Date 02/12/2019 02/12/2019 12:39 PM DATA INPUT CLERK C.Difficile - Rule Out 02/12/2019 documented as of this encounter
--- OUTSIDE RECORDS SUMMARY | 2019-08-31 23:34 | XMS REPORT | Encounter Summary ---
Author Author [facility] Organization [facility] Address Unknown Phone Unavailable Care Team Providers Care Wagon Washer Name Role Phone Yulissa Zapata PCP Encounter Details Care Team Description Date [place] [address] [place] [address] 02/03/2019 Documentation [facility] [address] [place] [address] Social History Date Tobacco Use Types Packs/Day [...]
--- OUTSIDE RECORDS SUMMARY | 2019-08-31 23:34 | XMS REPORT | Encounter Summary ---
Author Author [facility] Organization [facility] Address Unknown Phone Unavailable Care Team Providers Care Manager Music Name Role Phone Yari Zapataa PCP Reason for Visit * Reason Comments Procedure VIRGILIO Encounter Details Care Team Description Date Type Department Yluissa Wilkerson RN Procedure (VIRGILIO) [facility] [place] [address] Social History Date Tobacco Use Types Packs/Day [...] notice. Pt and f amily moving to [place] for winter but she will return for [...]
--- OUTSIDE RECORDS SUMMARY | 2019-08-31 23:34 | XMS REPORT | Encounter Summary ---
Author Author [facility] Organization [facility] Address Unknown Phone Unavailable Care Team Providers Care Circulation Supervisor Name Role Phone Benny Yulissa PCP Reason for Referral * MRI/CAT/PET Scan (Routine) Referred By Contact Referred To Contact Status Reason Specialty Diagnoses / Procedures Dayton Daugherty MD [address] [facility] [address] [place] [address] [facility] [address] [place] [address] Closed Cardiology Diagnoses Paroxysmal atrial fibrillation (HCC) P rocedures CV CT Heart pre Electrophysiology Reason for Visit * MRI/CAT/PET Scan (Routine) Referred By Contact Referred To Contact Status Reason Specialty Diagnoses / Procedures Dayton Daugherty MD [address] [facility] [address] [place] [address] [facility] [address] [place] [address] Closed Cardiology Diagnoses Paroxysmal atrial fibrillation (HCC) P rocedures CV CT Heart pre Electrophysiology Encounter Details Care Team Description Date Type Department Dayton Daugherty MD [address] [facility] [address] [place] [address] [phone] Paroxysmal atrial fibrillation (HCC) [facility] [address] [place] [address] Social History Date Tobacco Use Types Packs/Day [...] Performed At [facility] NAME: PAU MCCABE : [id number] GENDER: F ACCOUNT NUM: [id number] TEST: CTA of Pulmonary Veins With Con jamie TEST DATE: TEST LOCATION: [facility] INPATIENT: Outpatient REFERRING PHYSICIAN: Dayton Daugherty MD [...] this study. OVERREAD: Fredo Padron MD [address] [facility], [address] [place] [address] D: 2019-01-06 00:00:00.0 T: 2019-01-06 09:00:13.0 PROVIDER APPROVAL DATETIME: 2018-12-10 09:26:43.0 Procedure Note Interface, External Ris In - 01/06/2019 11:38 AM CDT NAME: PAU MCCABE : [id number] GENDER: F ACCOUNT NUM: [id number] TEST: CTA of Pulmonary Veins With Contrast TEST DATE: TEST LOCATION: [facility] INPATIENT: Outpatient REFERRING PHYSICIAN: Dayton Daugherty MD [...] in this study. OVERREAD: Fredo Padron MD [address] [facility], [address] [place] [address] D: 2019-01-06 00:00:00.0 T: 2019-01-06 09:00:13.0 PROVIDER [...]
--- OUTSIDE RECORDS SUMMARY | 2019-08-31 23:34 | XMS REPORT | Encounter Summary ---
Author Author [facility] Organization [facility] Address Unknown Phone Unavailable Care Team Providers Care Scrummaster Name Role Phone Yulissa Zapata PCP Encounter Details Care Team Description Date Type Department Dayton Daugherty MD [address] [facility] [address] [place] [address] [phone] Paroxysmal atrial fibrillation (HCC) 01/01/2019 Lab [facility] [phone] Social History Date Tobacco Use Types Packs/Day [...] Protime 22.0 (H) 11.4 - 15.0 sec [facility] INR 1.9 (H) 0.8 - 1.2 [facility] Specimen Blood Performing Organization Address City/State/[facility] Ph one Number [facility] [address] [phone] [facility] [address] [place] [address] * CBC and Diff (manual diff if necessary) (01/01/2019 11:39 AM CDT) WBC 4.81 4.00 - 11.00 TH/uL [facility] RBC 3.78 (L) 4.00 - 5.00 MIL/uL [facility] Hemoglobin 12.7 12.0 - 15.0 g/dL [facility] Hematocrit 38 36 - 45 % [facility] MCV 100 (H) 80 - 99 fL [facility] MCH 34 27 - 34 pg [facility] MCHC 34 32 - 36 % [facility] RDW 13.0 11.5 - 14.5 % [facility] Platelet Count 137 (L) 140 - 400 TH/uL [facility] MPV 10.6 9.4 - 12.3 fL [facility] Nucleated RBCs 0 0 - 0 /100 [facility] % Neutrophils 66 45 - 78 % [facility] %Lymphocytes 18 15 - 47 % [facility] %Monocytes 9 0 - 12 % [facility] %Eosinophils 5 0 - 7 % [facility] %Basophils 1 0 - 2 % [facility] % Imm Grans 0 0 - 1 % [facility] # Granulocytes 3.18 1.70 - 6.80 TH/uL [facility] # Lymphocytes 0.88 (L) 1.00 - 3.30 TH/uL [facility] # Monocytes 0.45 0.20 - 0.90 TH/uL [facility] # Eosinophils 0.25 0.00 - 0.40 TH/uL [facility] # Basophils 0.05 0.00 - 0.10 TH/uL [facility] Specimen Blood Performing Organization Address City/[facility] one Number [facility] [address] [place] [address] [facility] [address] [place] [address] * Basic Metabolic Panel (01/01/2019 11:39 AM CDT) Sodium 140 133 - 147 MEQ/L [facility] Potassium 4.1 3.5 - 5.3 MEQ/L [facility] Chloride 102 96 - 112 MEQ/L [facility] Carbon Dioxide 32 20 - 32 MEQ/L [facility] Anion Gap 6 5 - 17 [facility] Calcium 9.0 8.4 - 10.5 mg/dL [facility] Glucose 105 (H) 70 - 100 mg/dL [facility] Blood Urea 18 7 - 26 mg/dL [facility] Creatinine 0.9 0.4 - 1.1 mg/dL [facility] eGFR Female AA 74 60 - 200 [facility] mL/min/1.73sq m [facility] eGFR Female 62 60 - 200 [facility] Non-AA mL/min/1.73sq m [facility] Specimen Blood Performing Organization Address City/[facility] Ph one Number [facility] [address] [place] [address] [facility] [address] [place] [address] documented in this encounter Visit Diagnoses Diagnosis Paroxysmal atrial fibrillation (HCC) Atrial fibrillation documented in this encounter
--- OUTSIDE RECORDS SUMMARY | 2019-08-31 23:34 | XMS REPORT | Encounter Summary ---
Author Author [facility] Organization [facility] Address Unknown Phone Unavailable Care Team Providers Care Solid Waste Facility Operator Name Role Phone Yulissa Zapata PCP Reason for Visit * Auth/Cert (Routine) Referred By Contact Referred To Contact Status Reason Specialty Diagnoses / Procedures Rosendo King MD [address] [facility] [place] [address] New Request Procedures Case request operating room: ESOPHAGOGASTRODUOD ENOSCOPY (EGD) Encounter Details Care Team Description Date Type Department Brent Tao MD [address] [facility] [place] [address] [place] [address] ESOPHAGOGASTRODUODENOSCOPY (EGD) [facility]09/[facility] [address] [place], [place] [id number] Social History Date Tobacco Use Types Packs/Day [...] Comments Vital Sign 109/64 02/13/2019 1:36 PM SEEING EYE DOG TEACHER Blood Pressure 63 02/13/2019 1:36 PM SEEING EYE DOG TEACHER Pulse 36.7 C (98 F) 02/13/2019 11:50 AM SEEING EYE DOG TEACHER Temperature 20 02/13/2019 11:50 AM SEEING EYE DOG TEACHER Respiratory Rate 95% 02/13/2019 11:50 AM SEEING EYE DOG TEACHER Oxygen Saturation - - Inhaled Oxygen Concentration 90.4 kg (199 lb 4.8 oz) 02/13/2019 4:11 AM SEEING EYE DOG TEACHER Weight 165.1 cm (5' 5") 02/07/2019 11:28 PM SEEING EYE DOG TEACHER Height 33.17 02/07/2019 11:28 PM SEEING EYE DOG TEACHER Body Mass Index documented in this encounter Discharge Summaries * Marcus Bush, DO - 02/13/2019 11:21 AM SEEING EYE DOG TEACHER [facility] RN ONCOLOGY Hospitalist Discharge Summary Patient Name: Pau Wren [...] PCP was unable to re ach the [facility] GI clinic so she saw a [...] water so she was transferred to [facility]. During EGD Attempt 02/09/2019, she appeared to aspirate secondary to retained flu id and food in her esophagus. Repeat EGD done 02/10/19 did not find evidence of retained food or stricture. GI suspects achalasia and recommends outpatient man ometry at [facility] as outpatient. She will be started [...] signed by: Marcus Bush 02/13/2019 11:21 AM NG EYE DOG TEACHER documented in this encounter Discharge Instructions * Appointments* Sharon Baxter, ZULLY - 02/11/2019 9:38 AM SEEING EYE DOG TEACHER If you need to reschedule your Cardiology appointment, please call [facility] at [phone]. Thank you! NG EYE DOG TEACHER * Attachments The following attachments cannot be sent through Care Everywhere.* Piperacillin; Tazobactam injection (Occitan) documented in this encounter Medications at Time [...] Waldo Chavarria MD - 02/13/2019 9:01 AM SEEING EYE DOG TEACHER GI Progress Note NAME: Pau Wren ADMISSION [...] or edited the final report. READING SITE: [facility] Xr Chest Single View Frontal Result Date: 02/09/2019 1. Findings are suggestive of bronchitis with right basilar pneumonia/aspiration. READING SITE: [facility] ENDOSCOPY EGD 02/10/19 Corrugated mucosa and [...] had dilation at an outside hospital and [place], [place]. Endoscopy report reviewed and jair ent had empiric balloon dilation to 16.5 mm for suspected achalasia at the [facility]. She was also started on Cardizem that she did not tolerate due to hypo tension. EGD done on 02/10 showed no signs of strictures, poor peristalsis may be suggesti ve of achalasia. Due to persistent symptoms, EGD was repeated on 02/12 and Botox injection was don e above the GE junction. [facility] was contacted and patient to be [...] * Marcus Bush, - 02/12/2019 12:02 PM SEEING EYE DOG TEACHER [facility] RN ONCOLOGY Hospitalist Progress Note Patient Name: Pau Wren [...] Her PCP was unable to reach the [facility] GI clinic so she saw a different [...] water so she was transferred to [facility]. During EGD Attempt 02/09/2019, she appeared to aspirate secondary to retained flu id and food in her esophagus. Repeat EGD done 02/10/19 did not find evidence of retained food or stricture. GI suspects achalasia and recommends outpatient man ometry at [facility] as outpatient. She will be started [...] index is 33.5 kg/m. Marcus Bush DO [facility] Program Please page through [employer] Messaging using template format. Electronically signed by Marcus Bush 02/12/2019 12:02 PM NG EYE DOG TEACHER * Marcus Bush, - 02/11/2019 1:33 PM SEEING EYE DOG TEACHER [facility] RN ONCOLOGY Hospitalist Progress Note Patient Name: Pau Wren [...] Her PCP was unable to reach the [facility] GI clinic so she saw a different [...] water so she was transferred to [facility]. During EGD Attempt 02/09/2019, she appeared to aspirate secondary to retained flu id and food in her esophagus. Repeat EGD done 02/10/19 did not find evidence of retained food or stricture. GI suspects achalasia and recommends outpatient man ometry at [facility] as outpatient. She will be started [...] index is 33.23 kg/m. Marcus Bush DO [facility] Program Please page through [employer] Messaging using template format. Electronically signed by Marcus Bush 02/11/2019 1:33 PM NG EYE DOG TEACHER * Waldo Chavarria MD - 02/11/2019 1:16 PM SEEING EYE DOG TEACHER GI Progress Note NAME: Pau Wren ADMISSION [...] or edited the final report. READING SITE: [facility] Xr Chest Single View Frontal Result Date: 02/09/2019 1. Findings are suggestive of bronchitis with right basilar pneumonia/aspiration. READING SITE: [facility] ENDOSCOPY EGD 02/10/19 Corrugated mucosa and [...] had dilation at an outside hospital and [place], [place]. There was also reportedly esophage al [...] diet and undergo esophageal motility study at [facility] as an outpatient. If this is not feasible, repeat upper endoscopy with botulinu m toxin injection to lower esophageal sphincter region will be performed tomorro w in an effort to allow hospital discharge. * Kristina Conrad, JOSUE - 02/10/2019 4:07 PM SEEING EYE DOG TEACHER Attempt to see patient today x2 this afternoon. Out of room for EGD. Will plan t o see patient in AM. NG EYE DOG TEACHER * Marcus Bush, - 02/10/2019 3:22 PM SEEING EYE DOG TEACHER [facility] RN ONCOLOGY Hospitalist Progress Note Patient Name: Pau Wren [...] Her PCP was unable to reach the [facility] GI clinic so she saw a different [...] water so she was transferred to [facility]. During EGD Attempt 02/09/2019, she appeared to [...] index is 33.23 kg/m. Marcus Bush DO [facility] Please page through [employer] Messaging using template format. Electronically signed by Marcus Bush 02/10/2019 3:22 PM NG EYE DOG TEACHER * Katheryn Aguilar - 02/10/2019 10:50 AM SEEING EYE DOG TEACHER Pau was sitting in bed visiting with her daughter Althea and [id number] Maryjane, the room was well lite when [...] Katheryn Aguilar, 02/10/2019 1:31 PM Pager Number: [phone] NG EYE DOG TEACHER * Marcus Bush DO - 02/09/2019 12:58 PM SEEING EYE DOG TEACHER [facility] RN ONCOLOGY Hospitalist Progress Note Patient Name: Pau Wren [...] Her PCP was unable to reach the [facility] GI clinic so she saw a different [...] water so she was transferred to [facility]. Assessment/Plan: * Esophageal dysphagia Concern for esophageal [...] index is 33.23 kg/m. Marcus Bush DO [facility] Program Please page through [employer] Messaging using template format. Electronically signed by Marcus Bush 02/09/2019 12:58 PM NG EYE DOG TEACHER * Jenae Suarez PharmD - 02/09/2019 9:58 AM SEEING EYE DOG TEACHER Pharmacist Warfarin Dosing Sign-Off Note Warfarin is no longer an active order. Pharmacy will sign-off on further dosing at this time. If warfarin therapy is to be resumed, an order for Pharmacy to Dos e Warfarin needs to be resubmitted to pharmacy services for further management. Jenae Suarez PharmD Kwame Lauren PharmD - 02/08/2019 11:41 AM SEEING EYE DOG TEACHER Pharmacist Warfarin Dosing Progress Note Pau Wren [...] be managed by kaylyn lagunas unless re-consulted. NG EYE DOG TEACHER * Lennox Taylor MD - 02/08/2019 6:43 AM SEEING EYE DOG TEACHER [facility] Hospitalist - Progress Note Patient Name: Pau Wren Account No: [id number] Date of : 1950 Date of Admission: [...] results (as indicated), current inpatient medications and sales support technician notes with pertainent findings noted within the [...] details regarding this patients treatment plan. Room: [address] [place] [address] Diet: CLD, NPO at midnight for possible [...] chlorid e in water Dany Briceño MD [facility] Division Please page through physician paging. . I saw and examined the patient with Dr Dany Briceño MD. I agree with history , exam, assessment and plan as documented in resident's note. I have edited as a ppropriate to reflect my findings. EGD tomorrow and possibly discharge after that NG EYE DOG TEACHER * Paul Scott PharmD - 02/08/2019 3:19 AM SEEING EYE DOG TEACHER Pharmacist Warfarin Dosing Progress Note Pau Wren [...] be managed by kaylyn lagunas unless re-consulted. NG EYE DOG TEACHER documented in this encounter H&P Notes * David Ma MD - 02/12/2019 1:09 PM SEEING EYE DOG TEACHER PRE ENDOSCOPIC PROCEDURE HISTORY AND PHYSICAL Procedure: [...] ESOPHAGOGASTRODUODENOSCOPY, USING BIOPSY; Surgeon: Randi Stewart; Location: [facility] GI; Service: Gastroenterology; Laterality: N/A; ESOPHAGOGASTRODUODENOSCOPY (EGD) N/A 02/09/2019 Procedure: ESOPHAGOGASTRODUODENOSCOPY (EGD); Surgeon: Brent Tao MD; Locati on: [facility] GI; Service: Gastroenterology; Laterality: N/A; ESOPHAGOGASTRODUODENOSCOPY (EGD) N/A 02/10/2019 Procedure: ESOPHAGOGASTRODUODENOSCOPY (EGD); Surgeon: Anthony Camilo MD; Location: [facility] GI; Service: Gastroenterology; Laterality: N/A; FOOT [...] "stuck" Essential hypertension GERD (gastroesophageal reflux disease) alf current use of antiarrhythmic drug alf current use of anticoagulant therapy Mitral regurgitation [...] Anthony Parks MD - 02/10/2019 3:09 PM SEEING EYE DOG TEACHER PRE ENDOSCOPIC PROCEDURE HISTORY AND PHYSICAL Procedure: [...] ESOPHAGOGASTRODUODENOSCOPY, USING BIOPSY; Surgeon: Randi Stewart; Location: [facility] GI; Service: Gastroenterology; Laterality: N/A; ESOPHAGOGASTRODUODENOSCOPY (EGD) N/A 02/09/2019 Procedure: ESOPHAGOGASTRODUODENOSCOPY (EGD); Surgeon: Brent Tao MD; Locati on: [facility] GI; Service: Gastroenterology; Laterality: N/A; FOOT [...] "stuck" Essential hypertension GERD (gastroesophageal reflux disease) alf current use of antiarrhythmic drug ad terminal [...] signed by Anthony Camilo 02/10/2019 3:10 PM NG EYE DOG TEACHER * Brent Tao MD - 02/09/2019 10:08 AM SEEING EYE DOG TEACHER PRE ENDOSCOPIC PROCEDURE HISTORY AND PHYSICAL Procedure: [...] ESOPHAGOGASTRODUODENOSCOPY, USING BIOPSY; Surgeon: Randi Stewart; Location: [facility]; Service: Gastroenterology; Laterality: N/A; FOOT SURGERY Left [...] "stuck" Essential hypertension GERD (gastroesophageal reflux disease) ad [...] signed by Brent Tao 02/09/2019 10:08 AM NG EYE DOG TEACHER * Joseline Marrero MD - 02/07/2019 11:45 PM SEEING EYE DOG TEACHER [facility] - [facility] & Physical Patient Name: Pau Wren Account No: [id number] Date of : 1950 Date of Admission: [...] Her PCP was unable to reach the [facility] GI clinic so she saw a [...] little water so she was transferred to [facility] from [facility] for further assessment. She denies ENRIQUEZ, CP, SOA, n/v/d/c, abd pain, fever, chills and urinary symptoms. ROS A 10-point review of systems was completed and was negative except as noted abov e. Past Medical History: Diagnosis Date Atrial fibrillation with RVR ([facility]) 09/2018 Noted on 24 Hour Holter Chronic combined systolic and diastolic CHF, NYHA class 3 (HCC) Depression Dilated cardiomyopathy (HCC) Dysphagia hard to take pills- "stuck" Essential hypertension GERD (gastroesophageal reflux disease) alf current use of antiarrhythmic drug alf current use of anticoagulant therapy Mitral regurgitation [...] ESOPHAGOGASTRODUODENOSCOPY, USING BIOPSY; Surgeon: Randi Stewart; Location: [facility] GI; Service: Gastroenterology; Laterality: N/A; FOOT [...] treatment as noted above. Joseline Marrero MD [facility] Medicine Division Please page through physician paging. . NG EYE DOG TEACHER documented in this encounter Consult Notes * Chelsea Delgado MD - 02/09/2019 2:33 PM SEEING EYE DOG TEACHER Associated Order(s): IP CONSULT TO CARDIOLOGY [facility] Cardiology Consult Date: 02/09/2019 Established [facility] patient: Yes: Provider: Willow Last date [...] NSR. Patient anticoagulated with warfarin managed by [facility]. She met with Dr Daugherty in [...] "stuck" Essential hypertension GERD (gastroesophageal reflux disease) alf current use of antiarrhythmic drug ad terminal [...] ESOPHAGOGASTRODUODENOSCOPY, USING BIOPSY; Surgeon: Randi Stewart; Location: [facility] GI; Service: Gastroenterology; Laterality: N/A; ESOPHAGOGASTRODUODENOSCOPY (EGD) N/A 02/09/2019 Procedure: ESOPHAGOGASTRODUODENOSCOPY (EGD); Surgeon: Brent Tao MD; Locati on: [facility] GI; Service: Gastroenterology; Laterality: N/A; FOOT [...] bronchitis with right basilar pneumonia/aspiration. READING SITE: [facility] EKG: Normal Sinus Rhythm at 59 [...] Family Another healthcare provider Patient's daughter present NG EYE DOG TEACHER * Jenna Borges MD - 02/08/2019 12:22 PM SEEING EYE DOG TEACHER Associated Order(s): IP CONSULT TO GASTROENTEROLOGY [facility] GI Inpatient New Consult Note [...] had dilation at an outside hospital and [place], [place]. There was also reportedly esophageal spasms [...] "stuck" Essential hypertension GERD (gastroesophageal reflux disease) alf current use of antiarrhythmic drug ad terminal [...] ESOPHAGOGASTRODUODENOSCOPY, USING BIOPSY; Surgeon: Randi Stewart; Location: [facility] GI; Service: Gastroenterology; Laterality: N/A; FOOT [...] had dilation at an outside hospital and [place], [place]. There was also reportedly esophage al [...] this past week from outside hospital at [facility] in [place], [place] -NPO at midnight -Hold warfarin, if [...] Fellow Disclaimer: This note was dictated using IPXI software and while checked, it m ay have unintentional errors. ATTENDING ADDENDUM I saw and examined the patient with the fellow and agree with the note as below. She has a history of EoE diagnosed by Dr. Balderas. She has recurrence of dyspha sil. No concern for food bolus impaction. Will plan for EGD tomorrow. Jenna Borges MD NG EYE DOG TEACHER documented in this encounter Nursing Notes * Lissette Fairbanks RN - 02/12/2019 3:59 PM SEEING EYE DOG TEACHER Returned from GI procedure. HR a-fib VR 130 Inc of stool. Extensive clean up in bed on monitor. Cardiac medications given, with pt sitting side of bed. T * Lissette Fairbanks RN - 02/12/2019 10:33 AM SEEING EYE DOG TEACHER GI MD at bedside. T * Chelsea Miller RN - 02/09/2019 12:03 PM SEEING EYE DOG TEACHER Stabilized, egd stopped after noted food/fluid in esophagus NG EYE DOG TEACHER * Kayley Herrera RN - 02/08/2019 9:00 AM SEEING EYE DOG TEACHER With AM vitals, O2 noted to be 74%. Patient has gel nailpolish on fingernails & toenails. Difficulty getting accurate read on earlobe. Patient reporting mild S OA but carrying on conversation & appeared to be in no distress. Applied 2 L NC & O2 reading 96%. Updated med-teaching resident of this during morning rounding. Patient resting comfortably, reporting no further SOA. NG EYE DOG TEACHER documented in this encounter Miscellaneous Notes * Nursing Discharge - Zohaib Helton RN - 02/13/2019 2:10 PM SEEING EYE DOG TEACHER Nursing Discharge Note Patient is stable for discharge. Reviewed discharge instructions and patient ve rbalized understanding, had no further questions, and left the unit in wheel galo ir with staff. Patient traveling home with in personal Vehicle. Patient/family satisfied with progress made towards goals and ready for discharg e. NG EYE DOG TEACHER * Care Progression Final DC Note - Dayami Bennett RN - 02/13/2019 11:49 AM SEEING EYE DOG TEACHER Final Discharge Note Final Discharge Disposition: 01-Home Self Care Discharge goal and plan is mutually agreed upon by patient Patient will discharge to: home, self care Transportation: pts family Discharge Time: appr 12-1300 Special Instructions: none NG EYE DOG TEACHER * End of Shift Note - Rula Ball RN - 02/13/2019 6:02 AM SEEING EYE DOG TEACHER End of Shift Summary and Plan of [...] EGD 02/08/19, mo nitor tolerance of CLD. NG EYE DOG TEACHER * End of Shift Note - Lissette Fairbanks RN - 02/12/2019 5:22 PM SEEING EYE DOG TEACHER End of Shift Summary and Plan of [...] Chau Christy MD - 02/12/2019 2:02 PM SEEING EYE DOG TEACHER EGD Report Date: 02/12/2019 2:02 PM Patient Name: PAU PANG (age): 1950 (69) Gender: Female Endoscopist(s): MD David Landrum MD Instrument(s): Scope # 9 - EG - 600WR - Regular - Fujinon([id number]) Anesthesia Provider: Rick Sutherland MD Nurse(s): Neil [...] being detected during the procedure. The patient/patients premium representative appeared to understand the procedure, the potential complications, and alternatives; had the opportunity to ask questions; and informed consent was obtained. The risk/benefit ratio was deemed appropriate to proceed with the procedure. General Anesthesia was administered by nurse extractor operator solvent process. Continuous pulse oximetry and blood pressure monitoring [...] Rula Ball RN - 02/12/2019 5:39 AM SEEING EYE DOG TEACHER End of Shift Summary and Plan of [...] EGD 02/08/19, mo nitor tolerance of CLD. NG EYE DOG TEACHER * End of Shift Note - Aislinn Zhong RN - 02/11/2019 5:05 PM SEEING EYE DOG TEACHER End of Shift Summary and Plan of [...] EGD 02/08/19, mo nitor tolerance of CLD. NG EYE DOG TEACHER * Assessment & Plan Note - Marcus Bush DO - 02/11/2019 1:28 PM SEEING EYE DOG TEACHER Associated Problem(s): Aspiration pneumonia (HCC) Secondary to retained esophogeal food: -completed 3/4 days of zosyn, now has diarrhea -change to rocephin / flagyl to see if less affect on gut -repeat procalcitonin trending down NG EYE DOG TEACHER * Sign-Off Note - Kristina Conrad NP - 02/11/2019 9:18 AM SEEING EYE DOG TEACHER [facility] Sign-Off Note Name: Pau Wren CPI: [id number] Date of : 1950 Primary care physician: Yulissa Zpaata MD Date of admission: 02/07/2019 Date of [...] y.o. female who is currently admitted to [facility] under the Hospitalist service. We were consulted [...] has not required diuresis this admission. 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 NG EYE DOG TEACHER * Provider Clarification Response - Marcus Bush DO - 02/11/2019 8:01 AM SEEING EYE DOG TEACHER [facility] Query Respons e Note PATIENT: PAU WREN : 1950 ADMIT DATE: 02/07/2019 11:25 PM DISCH DATE: RESPONDING PROVIDER #: [id number] RESPONSE TEXT: The patient has aspiration pneumonia. [...] by: MARCUS VAUGHAN DO 02/11/2019 8:00 AM NG EYE DOG TEACHER * End of Shift Note - Tomasa Foreman, ZULLY - 02/11/2019 6:44 AM SEEING EYE DOG TEACHER End of Shift Summary and Plan of [...] EGD 02/08/19, mo nitor tolerance of CLD. NG EYE DOG TEACHER * End of Shift Note - Kayley Herrera RN - 02/10/2019 7:49 PM SEEING EYE DOG TEACHER End of Shift Summary and Plan of [...] EGD 02/08/19, mo nitor tolerance of CLD. NG EYE DOG TEACHER * Nutrition Note - Lilliam Lai RD - 02/10/2019 11:50 AM SEEING EYE DOG TEACHER Nutrition Assessment [facility] DIAGNOSIS & INTERVENTION: DIAGNOSIS 1 Nutrition Diagnosis [...] Usual Body Weight: 96.2 kg (212 lb) Venus Body Weight: 56.7 kg (125 lb) % Venus Body Weight: 159 % % Weight Loss [...] Estimated Energy Needs Total Energy Estimated Needs: 7820-8115 kcal/day Method for Estimating Needs: MSJ 1.2-1.4 Estimated Protein Needs Total Protein Estimated Needs: 57-68 gm/day Method for Estimating Needs: 1.0-1.2 gm/day Fluid Needs Total Fluid Estimated Needs: per MD MONITORING/EVALUATION: 1. Food & Nutrition Related Hx: Energy Intake 2. Anthropometrics: Weight change 3. Biochemical: Nutrition related labs 4. Nutrition-focused physical findings: GI function, skin Electronically signed by Lilliam Lai 02/10/2019 11:50 AM NG EYE DOG TEACHER * Operative Note - Anthony Camilo MD - 02/10/2019 9:00 AM SEEING EYE DOG TEACHER EGD Report Date: 02/10/2019 9:00 AM Patient Name: PAU WREN DOB (age): 1950 (69) Gender: Female Endoscopist(s): Anthony Camilo MD Instrument(s): Scope # 3 - EG - 600WR - Regular - Fujinon([id number]) Anesthesia Provider: Lorie Yadav MD Nurse(s): Lorena [...] being detected during the procedure. The patient/patients premium representative appeared to understand the procedure, the [...] 02/10/2019 4:02:20 PM by Anthony Camilo MD NG EYE DOG TEACHER * End of Shift Note - Julio C Pineda RN - 02/10/2019 7:37 AM SEEING EYE DOG TEACHER End of Shift Summary and Plan of [...] EGD 02/08/19, mo nitor tolerance of CLD. NG EYE DOG TEACHER * Care Progression Initial Assessment - Dayami Bennett RN - 02/09/2019 1:27 PM SEEING EYE DOG TEACHER Care Progression Initial Assessment Note Admit for [...] system has been Support System: Spouse/significant other, [facility] Patient has verbalized the following concerns at [...] MD and receiv es their medications from [facility] #[id number] [facility] [address] [address] [facility]patient [facility] [address] [facility] [address] [facility] [address] DAYAMI BENNETT RN CERTIFIED HYPERBARIC TECHNOLOGIST [phone] NG EYE DOG TEACHER * End of Shift Note - Kayley Herrera RN - 02/09/2019 12:38 PM SEEING EYE DOG TEACHER End of Shift Summary and Plan of [...] EGD 02/08/19, onel dengor tolerance of CLD. NG EYE DOG TEACHER * Operative Note - Brent Tao MD - 02/09/2019 9:30 AM SEEING EYE DOG TEACHER EGD Report Date: 02/09/2019 9:30 AM Patient Name: PAU PANG (age): 1950 (69) Gender: Female Endoscopist(s): MD David Alonso MD Instrument(s): Scope # 6 - EG - 600WR - Regular - Fujyonas([id number]) Anesthesia Provider: Dayton Hopkins MD Nurse(s): Chelsea [...] being detected during the procedure. The patient/patients premium representative appeared to understand the procedure, the [...] 12:04:07 PM by MD David Alonso MD NG EYE DOG TEACHER * End of Shift Note - Jono Negron RN - 02/09/2019 5:31 AM SEEING EYE DOG TEACHER End of Shift Summary and Plan of [...] EGD 02/08/19, mo nitor tolerance of CLD. NG EYE DOG TEACHER * End of Shift Note - Kayley Herrera RN - 02/08/2019 5:18 PM SEEING EYE DOG TEACHER End of Shift Summary and Plan of [...] tomorrow. Faxed request for medical records to [facility] [place], [place]. NSR on telemetry. Continuing to monitor. [...] EGD 02/08/19, mo nitor tolerance of CLD. NG EYE DOG TEACHER * End of Shift Note - Jono Negron RN - 02/08/2019 4:47 AM SEEING EYE DOG TEACHER End of Shift Summary and Plan of [...] Stay Nursing goal for hospital stay: Plan: NG EYE DOG TEACHER * Assessment & Plan Note - Marcus Bush DO - 02/08/2019 12:56 AM SEEING EYE DOG TEACHER Associated Problem(s): Paroxysmal atrial fibrillation (HCC) Currently in sinus rhythm: -continue dofetilide as PO allows -continue to hold warfarin as needs repeat EGD today NG EYE DOG TEACHER * Assessment & Plan Note - Marcus Bush DO - 02/08/2019 12:56 AM SEEING EYE DOG TEACHER Associated Problem(s): Essential hypertension Continue coreg NG EYE DOG TEACHER * Assessment & Plan Note - Marcus Bush DO - 02/08/2019 12:55 AM SEEING EYE DOG TEACHER Associated Problem(s): Depression Continue Paxil NG EYE DOG TEACHER * Assessment & Plan Note - Marcus Bush DO - 02/08/2019 12:54 AM SEEING EYE DOG TEACHER Associated Problem(s): Esophageal dysphagia Concern for esophageal stricture s/p dilatation at outside hospital: -history of eosinophilic esophagitis -failed EGD attempt with possible aspiration 02/09 -repeat EGD 02/10/19 without stricture, clinical concern for achalasia -failed trial of clear liquid diet -plan Botox today as did not tolerate PO NG EYE DOG TEACHER * Hospital Course - Marcus Bush DO - 02/08/2019 12:45 AM SEEING EYE DOG TEACHER 69 y.o. female with h/o Afib on [...] Her PCP was unable to reach the [facility] GI clinic so she saw a [...] water so she was transferred to [facility]. During EGD Attempt 02/09/2019, she appeared to aspirate secondary to retained flu id and food in her esophagus. Repeat EGD done 02/10/19 did not find evidence of retained food or stricture. GI suspects achalasia and recommends outpatient man ometry at [facility] as outpatient. She will be started on clear liquid diet and initially tolerated but then could not keep down even pills. She continues to bring up frothy substance. NG EYE DOG TEACHER documented in this encounter Plan of Treatment Not on filedocumented as of this encounter Procedures Comments Procedure Name Priority Date/Time Associated Diag nosis CLOSTRIDIUM DIFFICILE STAT 02/12/2019 TOXIN BY PCR 10:45 AM SEEING EYE DOG TEACHER PROTHROMBIN TIME/INR Routine 02/12/2019 1:25 AM SEEING EYE DOG TEACHER PROCALCITONIN Routine 02/12/2019 1:25 AM SEEING EYE DOG TEACHER COMPLETE BLOOD COUNT Routine 02/12/2019 1:25 AM SEEING EYE DOG TEACHER B12/FOLATE Add-On 02/10/2019 10:00 AM SEEING EYE DOG TEACHER RENAL PANEL Routine 02/10/2019 9:59 AM SEEING EYE DOG TEACHER PROTHROMBIN TIME/INR STAT 02/10/2019 9:59 AM SEEING EYE DOG TEACHER CT CHEST W CONTRAST Routine 02/10/2019 9:29 AM SEEING EYE DOG TEACHER PROCALCITONIN Routine 02/10/2019 2:45 AM SEEING EYE DOG TEACHER COMPLETE BLOOD COUNT Routine 02/10/2019 2:45 AM SEEING EYE DOG TEACHER XR CHEST SINGLE VIEW Routine 02/09/2019 FRONTAL 12:26 PM SEEING EYE DOG TEACHER ESOPHAGOGASTRODUODENOSCOP 02/09/2019 Dysphagia, assess need Y (EGD) 11:40 AM SEEING EYE DOG TEACHER for dilation Special Needs Dysphagia, assess need for dilation XR OUTSIDE IMAGES FOR Routine 02/09/2019 Encounte r for PACS 7:05 AM SEEING EYE DOG TEACHER consultation XR ABDOMEN OUTSIDE IMAGES Routine 02/09/2019 Enco unter for FOR PACS 7:05 AM SEEING EYE DOG TEACHER consultation PROTHROMBIN TIME/INR Routine 02/08/2019 12:14 PM SEEING EYE DOG TEACHER ECG Routine 02/08/2019 1:12 AM SEEING EYE DOG TEACHER PROTHROMBIN TIME/INR Routine 02/08/2019 1:00 AM SEEING EYE DOG TEACHER COMPREHENSIVE METABOLIC Routine 02/08/2019 PANEL 1:00 AM SEEING EYE DOG TEACHER CBC AND DIFF (MANUAL DIFF Routine 02/08/2019 IF NECESSARY) 1:00 AM SEEING EYE DOG TEACHER documented in this encounter Results * Clostridium Difficile Toxin by PCR (02/12/2019 10:45 AM SEEING EYE DOG TEACHER) C difficile Not DetectedComment: NEGATIVE Not Detected [facility] for C. difficile toxin by PCR [facility] Specimen Stool Performing Organization Address City/State/Zipcode Ph one Number [facility] [address] [place] [address] LABORATORIES [facility] [address] [place] [address] * Prothrombin Time/INR (02/12/2019 1:25 AM SEEING EYE DOG TEACHER) Only the most recent of 4 results within the time period is included. Protime 17.6 (H) 11.4 - 15.0 sec [facility] INR 1.5 (H) 0.8 - 1.2 [facility] Specimen Blood Performing Organization Address City/[facility] Ph one Number [address] [address] LABORATORIES [facility] [address] [place] [address] * Complete Blood Count (02/12/2019 1:25 AM SEEING EYE DOG TEACHER) Only the most recent of 2 results within the time period is included. WBC 6.08 4.00 - 11.00 TH/uL [facility] RBC 3.27 (L) 4.00 - 5.00 MIL/uL [facility] Hemoglobin 10.7 (L) 12.0 - 15.0 g/dL [facility] Hematocrit 31 (L) 36 - 45 % [facility] MCV 95 80 - 99 fL [facility] MCH 33 27 - 34 pg [facility] MCHC 35 32 - 36 % [facility] RDW 11.9 11.5 - 14.5 % [facility] Platelet Count 225 140 - 400 TH/uL [facility] MPV 10.4 9.4 - 12.3 fL [facility] Nucleated RBCs 0 0 - 0 /100 [facility] Specimen Blood Performing Organization Address City/State/[facility] Ph one Number [address] [address] LABORATORIES [facility] [address] [place] [address] * Procalcitonin (02/12/2019 1:25 AM SEEING EYE DOG TEACHER) Only the most recent of 2 results within the time period is included. Procalcitonin 0.51 (H) 0.00 - 0.10 ng/mL [facility] Comment: [facility] Lab PCT Value Interpretation 0.10 - 0.25 [...] procalcitonin levels. Specimen Blood Performing Organization Address City/[facility] Ph one Number [address] [address] LABORATORIES [facility] [address] [place] [address] * B12/Folate (02/10/2019 10:00 AM SEEING EYE DOG TEACHER) VITAMIN B12 306 239 - 931 pg/mL [facility] Folate 9.2 3.4 - 20.0 ng/mL [facility] Specimen Blood Performing Organization Address City/[facility] one Number [address] [address] LABORATORIES [facility] [address] [place] [address] * Renal Panel (02/10/2019 9:59 AM SEEING EYE DOG TEACHER) Sodium 138 133 - 147 MEQ/L [facility] Potassium 3.6 3.5 - 5.3 MEQ/L [facility] Chloride 106 96 - 112 MEQ/L [facility] Carbon Dioxide 22 20 - 32 MEQ/L [facility] Anion Gap 10 5 - 17 [facility] Calcium 8.2 (L) 8.4 - 10.5 mg/dL [facility] Glucose 73 70 - 100 mg/dL [facility] Albumin 3.1 (L) 3.5 - 5.0 g/dL [facility] Blood Urea 17 7 - 26 mg/dL [facility] Creatinine 0.8 0.4 - 1.1 mg/dL [facility] eGFR Female AA 85 60 - 200 [facility] mL/min/1.73sq Hospital Lab eGFR Female 71 60 - 200 [facility] Non-AA mL/min/1.73sq [facility] Phosphorus 3.7 2.5 - 4.5 mg/dL [facility] Specimen Blood Performing Organization Address City/State/Zipcode Ph one Number [facility] [address] [place] [address] LABORATORIES [facility] [address] [place] [address] * CT Chest w contrast (02/10/2019 9:29 AM SEEING EYE DOG TEACHER) Specimen Impressions Performed At 1. Thickening of [...] or edited the final report. READING SITE: [facility] Narrative Performed At Patient: PAU WREN Sex#: F #: [id number] Natacha #: [id number] Location: [address] [address] Accession# : [id number] Procedure Requested: [id number] CT CHEST W CONTRAST Reason for Exam: [...] Rad Results In - 02/10/2019 12:58 PM SEEING EYE DOG TEACHER Patient: PAU WREN Sex#: F #: [id number] Natacha#: [id number] Location: [address] [address] Procedure Requested: [id number] CT CHEST W CONTRAST Reason for Exam: [...] or edited the final report. READING SITE: [facility] Performing Organization Address City/State/Zipcode Ph one Number [facility] * XR Chest single view frontal (02/09/2019 12:26 PM SEEING EYE DOG TEACHER) Specimen Impressions Performed At 1. Findings are suggestive of bronchitis with right b asilar ALBERTOSON pneumonia/aspiration. READING SITE: [facility] Narrative Performed At Patient: PAU WREN Sex#: F #: [id number] Natacha #: [id number] Location: [address] [address] Accession# : [id number] Procedure Requested: [id number] XR CHEST SINGLE VIEW FRONTAL Reason for [...] Rad Results In - 02/09/2019 12:35 PM SEEING EYE DOG TEACHER Patient: PAU WREN Sex#: F #: [id number] Natacha#: [id number] Location: [address] [address] Procedure Requested: [id number] XR CHEST SINGLE VIEW FRONTAL Reason for [...] bronchitis with right basilar pneumonia/aspiration. READING SITE: [facility] Performing Organization Address [facility] one Number [facility] * XR Outside images for PACS (02/09/2019 7:05 AM SEEING EYE DOG TEACHER) Specimen Performing Organization Address [facility] one Number [facility] * XR Outside images for PACS Abdomen (02/09/2019 7:05 AM SEEING EYE DOG TEACHER) Specimen Performing Organization Address [facility] one Number [facility] * Electrocardiogram (ECG) (02/08/2019 1:12 AM SEEING EYE DOG TEACHER) QRSd 106 TRACEMASTER QT 448 TRACEMASTER QTC 444 TRACEMASTER ECGHR 59 TRACEMASTER ECGPR 192 TRACEMASTER Specimen Narrative Performed At TRACEMASTER [facility] Test Date: 2019-02-08 Pat Name: PAU WREN Department: 56 Room: 10 Gender: Female Chop Saw Operator: [id number] : 1950 Requested By: JOSELINE MARRERO Order Number: [id number] [place] MD: Brent Agarwal Measurements Intervals [place] Rate: 59 P: 39 OR: 192 QRS: 16 QRSD: 106 T: 41 QT: 448 QTc: 444 Interpretive Statements SINUS RHYTHM Electronically Signed On 02-08-2019 10:2 9:19 SEEING EYE DOG TEACHER by Brent Agarwal Procedure Note Interface, External Ris In - 02/08/2019 10:29 AM SEEING EYE DOG TEACHER [facility] Test Date: 2019-02-08 Pat Name: PAU WREN Department: 56 Room: 7410 Gender: Female Chop Saw Operator: [id number] : 1950 Requested By: JOSELINE MARRERO Order Number: [id number] [place] MD: Brent Agarwal Measurements Intervals [place] Rate: 59 P: 39 OR: 192 QRS: 16 QRSD: 106 T: 41 QT: 448 QTc: 444 Interpretive Statements SINUS RHYTHM Electronically Signed On 02-08-2019 10:29:19 SEEING EYE DOG TEACHER by Brent Agarwal Performing Organization Address City/State/Zipcode Ph one Number [facility] * CBC and Diff (manual diff if necessary) (02/08/2019 1:00 AM SEEING EYE DOG TEACHER) WBC 6.60 4.00 - 11.00 TH/uL [facility] RBC 3.52 (L) 4.00 - 5.00 MIL/uL [facility] Hemoglobin 11.7 (L) 12.0 - 15.0 g/dL [facility] Hematocrit 34 (L) 36 - 45 % [facility] MCV 97 80 - 99 fL [facility] MCH 33 27 - 34 pg [facility] MCHC 34 32 - 36 % [facility] RDW 12.5 11.5 - 14.5 % [facility] Platelet Count 162 140 - 400 TH/uL [facility] MPV 11.1 9.4 - 12.3 fL [facility] Nucleated RBCs 0 0 - 0 /100 [facility] % Neutrophils 74 45 - 78 % [facility] %Lymphocytes 16 15 - 47 % [facility] %Monocytes 9 0 - 12 % [facility] %Eosinophils 2 0 - 7 % [facility] %Basophils 1 0 - 2 % [facility] % Imm Grans 0 0 - 1 % [facility] # Granulocytes 4.87 1.70 - 6.80 TH/uL [facility] # Lymphocytes 1.02 1.00 - 3.30 TH/uL [facility] # Monocytes 0.56 0.20 - 0.90 TH/uL [facility] # Eosinophils 0.11 0.00 - 0.40 TH/uL [facility] # Basophils 0.03 0.00 - 0.10 TH/uL [facility] Specimen Blood Performing Organization Address City/State/Zipcode Ph one Number [facility] [address] [place] [address] LABORATORIES [facility] [address] [place] [address] * Comprehensive Metabolic Panel (02/08/2019 1:00 AM SEEING EYE DOG TEACHER) Sodium 141 133 - 147 MEQ/L [facility] Potassium 3.8 3.5 - 5.3 MEQ/L [facility] Chloride 110 96 - 112 MEQ/L [facility] Carbon Dioxide 24 20 - 32 MEQ/L [facility] Anion Gap 7 5 - 17 [facility] Calcium 8.9 8.4 - 10.5 mg/dL [facility] Glucose 93 70 - 100 mg/dL [facility] Protein Total 6.4 6.0 - 8.2 g/dL [facility] Serum [facility] Albumin 3.5 3.5 - 5.0 g/dL [facility] Alkaline 53 42 - 140 IU/L [facility] Alanine 18 0 - 34 IU/L [facility] Lab e Aspartate 25 15 - 46 IU/L [facility] Lab e Bilirubin Total 0.8 0.2 - 1.3 mg/dL [facility] Blood Urea 22 7 - 26 mg/dL [facility] Lab Creatinine 0.9 0.4 - 1.1 mg/dL [facility] eGFR Female AA 74 60 - 200 [facility] mL/min/1.73sq [facility] Lab eGFR Female 62 60 - 200 [facility] Non- mL/min/1.73sq [facility] Lab Specimen Blood Performing Organization Address City/State/Zipcode Ph one Number [facility] [address] [place] [address] LABORATORIES [facility] [address] [place] [address] documented in this encounter Visit Diagnoses Not on filedocumented in this encounter Administered Medications Action Date Dose Rate Site Medication Order MAR Action 02/08/2019 1:24 PM SEEING EYE DOG TEACHER 650 mg acetaminophen (TYLENOL) 650 mg/20.3 mL Given solution 325-650 mg 325-650 mg, Oral, Every 6 hours PRN, mild pain (pain score 1-3), Indications : fever, pain, Starting 02/08/19 at 1259, Do not exceed 4 GM/DAY of acetaminophen. If 65 or older do not exceed 3 GM/DAY. If chronic alcoholic d o not exceed 2 GM/DAY., 02/13/2019 8:35 AM SEEING EYE DOG TEACHER 3 mg budesonide (ENTOCORT EC) 24 hr capsule 3 Given mg 3 mg, Oral, Daily, Indications: infection, eosinophilic esophagitis, First dose on 02/08/19 at 0900, DO NOT CRUSH OR CHEW., 3 mg Given 02/11/2019 8:22 AM SEEING EYE DOG TEACHER 3 mg Given 02/08/2019 10:04 AM SEEING EYE DOG TEACHER 02/13/2019 8:36 AM SEEING EYE DOG TEACHER 25 mg carvedilol (COREG) tablet 25 mg Given 25 mg, Oral, 2 times daily, First dose on Sat02/10/19 at 2100 25 mg Given 02/12/2019 9:17 PM SEEING EYE DOG TEACHER 25 mg Given 02/12/2019 4:17 PM SEEING EYE DOG TEACHER 02/13/2019 11:03 AM SEEING EYE DOG TEACHER 2 g 100 mL/hr cefTRIAXone (ROCEPHIN) 2 g in sodium New Bag chloride ADDV (NS) 50 mL IVPB 2 g, Intravenous, at 100 mL/hr, Daily, Indications: pneumonia, First dose on Gabby 02/12/19 at 1000, For 7 doses 2 g 100 mL/hr New Bag 02/12/2019 11:22 AM SEEING EYE DOG TEACHER 02/13/2019 5:12 AM SEEING EYE DOG TEACHER 125 mcg dofetilide (TIKOSYN) capsule 125 mcg Given 125 mcg, Oral, Every 12 hours, Indications: cardioversion of atrial fibrillation, paroxysmal supraventricular tachycardia, First dos e on 02/08/19 at 0045, DO NOT CRUSH OR CHEW., 125 mcg Given 02/12/2019 4:16 PM SEEING EYE DOG TEACHER 125 mcg Given 02/11/2019 8:35 PM SEEING EYE DOG TEACHER 02/13/2019 8:35 AM SEEING EYE DOG TEACHER 40 mg esomeprazole (NexIUM) capsule 40 mg [...] , 40 mg Given 02/12/2019 4:15 PM SEEING EYE DOG TEACHER 40 mg Given 02/11/2019 5:16 PM SEEING EYE DOG TEACHER hydrALAZINE (APRESOLINE) injection 10 m g 10 mg, Intravenous, Every 6 hours PRN, high blood pressure, for SBP > 170 or DBP > 100, Starting [place] 02/08/19 at 0055 02/12/2019 4:19 PM SEEING EYE DOG TEACHER 15 mg ketorolac (TORADOL) injection 15 mg Given 15 mg, Intravenous, Every 6 hours PRN, moderate pain (pain score 4-6), severe pain (pain score 7-10), Starting 02/09/19 at 1404, For 5 days 15 mg Given 02/12/2019 12:43 PM SEEING EYE DOG TEACHER 15 mg Given 02/10/2019 8:12 AM SEEING EYE DOG TEACHER magnesium sulfate IVPB 2 gram (premix) 2 g, Intravenous, at 25 mL/hr, As needed, standard electroyte replacement , Starting [place] 02/08/19 at 0327, Replace i n addition [...] (if able to monitor)., 02/13/2019 11:41 AM SEEING EYE DOG TEACHER 500 mg 200 mL/hr metroNIDAZOLE (FLAGYL) IVPB 500 mg New Bag 500 mg, Intravenous, Administer over 30 Minutes, Daily, Indications: ASPIRATION PNEUMONIA, First dose on Gabby 02/12/19 at 1000, Bag 1 of 2 Avoid Alcohol in Food and Drinks, 500 mg 200 mL/hr New Bag 02/12/2019 11:25 AM SEEING EYE DOG TEACHER 02/13/2019 12:20 PM SEEING EYE DOG TEACHER 500 mg 200 mL/hr metroNIDAZOLE (FLAGYL) IVPB 500 mg New Bag 500 mg, Intravenous, Administer over 30 Minutes, Daily, Indications: ASPIRATION PNEUMONIA, First dose on Gabby 02/12/19 at 1000, Bag 2 of 2 Avoid Alcohol in Food and Drinks, 500 mg 200 mL/hr New Bag 02/12/2019 12:05 PM SEEING EYE DOG TEACHER 02/13/2019 8:36 AM SEEING EYE DOG TEACHER 10 mg PARoxetine (PAXIL) tablet 10 mg Given 10 mg, Oral, Daily, Indications: anxiet y with depression, First dose on 02/08/19 at 0900 10 mg Given 02/12/2019 4:16 PM SEEING EYE DOG TEACHER 10 mg Given 02/11/2019 8:24 AM SEEING EYE DOG TEACHER potassium bicarb-citric acid (EFFER-K) effervescent tablet 20 [...] Infection Onset Date 02/12/2019 02/12/2019 12:39 PM SEEING EYE DOG TEACHER C.Difficile - Rule Out 02/12/2019 documented as of this encounter
--- OUTSIDE RECORDS SUMMARY | 2019-08-31 23:34 | XMS REPORT | Encounter Summary ---
Author Author [facility] Organization [facility] Address Unknown Phone Unavailable Care Team Providers Care Bridal Service Sales And Management Name Role Phone Yulissa Zapata PCP Reason for Visit * Auth/Cert Referred By Contact Referred To Contact Status Reason Specialty Diagnoses / Procedures Diagnoses DYSPHAGIA P rocedures [place] ESOPHAGOGASTRODUOD ENOSCOPY TRANSORAL DIAGNOSTIC ESOPHAGOGASTRODUOD ENOSCOPY (EGD) Encounter Details Care Team Description Date Type Department Maxim Balderas MD [address] [place] [address] [phone] ESOPHAGOGASTRODUODENOSCOPY, USING BIOPSY 01/01/2019 [place] [address] Social History Date Tobacco Use Types Packs/Day [...] "stuck" Essential hypertension GERD (gastroesophageal reflux disease) jail current use of 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 The patient/patients merchandising representative appeared to understand the procedure, the [...] Specimen Tissue - Esophagus Narrative Performed At [facility] Pathology Group [facility] SURGICAL PATHOLOGY REPORT PATIENT: PAU MCCABE /AGE/SEX: 1950 (Age: 68) /F ID #: [id number] SUBMITTING PHYSICIAN: Maxim Ramey ra, MD CLIENT: [facility] COLLECTED: 01/01/2019 REPORTED: 01/02/2019 SPECIMEN #: [id number] ##################MICROSCOPIC INTERPRET ATION################## Esophagus, biopsy: - Esophagitis with increased eosi nophils (see comment). Comment: Sections of the esophageal bio psy demonstrate increased eosinophils numbering up to 22 per HPF. There is fo john eosinophilic microabscess formation. The findings are compatible with a diag nosis of eosinophilic esophagitis in the correct clinical and endoscopic context. Nato Benoit MD Report Electronically Signed Out CLW:01/02/19 WILLIAM(PERIPHERAL EDP EQUIPMENT OPERATOR) CLINICAL HISTORY/IMPRESSION: Dysphagia; r/o eosinophilic esophagitis . SPECIMEN LABELED: Esophagus biopsy GROSS DESCRIPTION: The specimen is received in formalin, l abeled with the patient name and further designated "esophagus biopsy." The spec imen consists of 3 honeycutt-white fragments of soft to rubbery tissue measuring 0.2 , 0.4 and 0.55 cm in the greatest dimensions. The specimen is entirely submitted in pahrumpe tte (A1). (RE) re Professional Component performed by WILLIAM , a [facility] Pathologist located at [facility], [address] [place] [address] Technical Component performed at [address] [place], [place] [address]###END OF REPORT### Performing Organization Address [facility] [place] [place] Ph one Number [facility] [address] [place], [place] [address] [address] * Prothrombin Time/INR (01/01/2019 9:25 AM CDT) Protime 21.7 (H) 11.4 - 15.0 sec [facility] INR 1.8 (H) 0.8 - 1.2 [facility] Specimen Blood Narrative Performed At This order is a replacement of the rejected order wit h accession number [facility] [id number]. LAB Performing Organization Address [facility] one Number [facility] [address] [address] [facility] [address] [place] [address] documented in this encounter Visit Diagnoses Diagnosis [...]
--- OUTSIDE RECORDS SUMMARY | 2019-08-31 23:34 | XMS REPORT | Encounter Summary ---
Author Author [facility] Organization [facility] Address Unknown Phone Unavailable Care Team Providers Care Seed Yeast Operator Name Role Phone Yulissa Zapata PCP Reason for Visit * Reason Comments f/u when? f/u when? Appointment referral request received f rom Chacho Kang APRN Encounter Details Care Team Description Date Type Department Licha Madden RN f/u when? (f/u when?); Appointment (refe rral request received from Chacho Kang APRN) 01/15/2019 Telephone [facility] [address] [place] [address] Social History Date Tobacco Use Types Packs/Day [...] Licha Madden RN - 02/19/2019 9:46 AM RURAL SOCIOLOGIST Pt has been scheduled for EMS at [facility] on 03/16/19 at 1300 with 1230 check in. Procedure instructions reviewed and mailed to pt. Orders faxed to [facility] GI lab L SOCIOLOGIST * Telephone Encounter - Licha Madden RN - 01/15/2019 1:[address] Balderas, We ended up sending her Rx for budesonide slurry to [facility]. Pt will be leaving for [place] within in the next couple of days. [...] her to. Thx so much, Judy ANDREA L SOCIOLOGIST documented in this encounter Plan of Treatment Not on filedocumented as of this encounter Visit Diagnoses Not on filedocumented in this encounter Additional Health Concerns Last Indicated Resolved Time Infection Onset Date 02/12/2019 02/12/2019 12:39 PM RURAL SOCIOLOGIST C.Difficile - Rule Out 02/12/2019 documented as of this encounter
--- OUTSIDE RECORDS SUMMARY | 2019-08-31 23:34 | XMS REPORT | Encounter Summary ---
Author Author [facility] Organization [facility] Address Unknown Phone Unavailable Care Team Providers Care Lieutenant General Name Role Phone Yulissa Zapata PCP Encounter Details Care Team Description Date Type Department [place] Louis LPN retirement current use of antiarrhythmic drug; Atrial flutter, unspecified type (HCC); retirement current use of anticoagulant therapy; Paroxysmal atrial fibrillation (HCC) 01/14/2019 Anticoag visit [facility] [address] [facility] [address] [place] [address] Social History Date Tobacco Use Types Packs/Day [...] France Louis LPN - 01/14/2019 8:08 AM ENGINE BOSS INR checked with home monitor ACH Per PSYCHIATRIC AC Guideline: Afib: Table 7 chart 2.0-2.2: INR 2.1--recommend: cont. ta warfarin 2.5 mg every Mon, Wed, Fri: 1.5 mg all other days: retest in 1 malika lewis 01.20.2019---Called pt no answer left detailed vm regarding INR dosing and rec ommendations. LET NE BOSS documented in this encounter Plan of Treatment [...] Visit Diagnoses Diagnosis retirement current use of antiarrhythmic drug Atrial flutter, unspecified type (HCC) terminologist current use of anticoagulant therapy Paroxysmal atrial fibrillation (HCC) Atrial fibrillation documented in this encounter
--- OUTSIDE RECORDS SUMMARY | 2019-08-31 23:34 | XMS REPORT | Encounter Summary ---
Author Author [facility] Organization [facility] Address Unknown Phone Unavailable Care Team Providers Care Freight Rate Specialist Name Role Phone Yulissa Zapata PCP Encounter Details Care Team Description Date Type Department Flavia Becerril RN 01/02/2019 Telephone [facility] [address] [place] [address] Social History Date Tobacco Use Types Packs/Day [...]
--- OUTSIDE RECORDS SUMMARY | 2019-08-31 23:34 | XMS REPORT | Encounter Summary ---
Author Author [facility] Organization [facility] Address Unknown Phone Unavailable Care Team Providers Care Boiler Plant Operator Name Role Phone Yulissa Zapata PCP Reason for Visit * Reason Comments Results EGD Results Encounter Details Care Team Description Date Type Department Khadra Bourne LPN Results (EGD Results) 01/14/2019 Telephone [facility] [address] [place] [address] Social History Date Tobacco Use [...] Khadra Bourne LPN - 01/15/2019 1:05 PM FOOD AND BEVERAGE ASSISTANT Spoke w/ pt to give results of EGD "Eosinophillic Esophagitis: The biopsies obtained during your recent upper endos copy detected changes of eosinophilic esophagitis. This is a benign condition a nd this uncommon disorder requires medical treatment. Since you are already on Nexium and continue to have symptoms, next step would be a 6 weeks course of [place] esonide viscous slurry 2 mg daily (compounded by mixing four 0.5 mg/2 mL Pulmico rt Respules with Splenda; creating a volume of approximately 8 mL). Do not eat o r drink for 30 minutes after taking the budesonide suspension." Will reach out to RN to get script taken care of. AND BEVERAGE ASSISTANT * Telephone Encounter - Khadra Bourne LPN - 01/14/2019 11:26 AM FOOD AND BEVERAGE ASSISTANT Dr. Balderas, Pt is asking for EGD results. Please advise, Thanks, Khadra AND BEVERAGE ASSISTANT documented in this encounter Plan of Treatment Not on filedocumented as of this encounter Visit Diagnoses Not on filedocumented in this encounter
--- OUTSIDE RECORDS SUMMARY | 2019-08-31 23:34 | XMS REPORT | Encounter Summary ---
Author Author [facility] Organization [facility] Address Unknown Phone Unavailable Care Team Providers Care Sap Basis Architect Name Role Phone Yulissa Zapata PCP Encounter Details Care Team Description Date Type Department Yulissa Zapata MD [address] [place] [address] Dr Caballero [address] [place] [id number] manager intermediate current use of antiarrhythmic drug 01/01/2019 [facility] [address] [place] [address] Social History Date Tobacco Use Types Packs/Day [...] patient. INR results and recommendations given per [facility] Table 7. Will recheck PT/INR on [...] documented in this encounter Visit Diagnoses Diagnosis custodial current use of antiarrhythmic drug documented in this encounter
--- OUTSIDE RECORDS SUMMARY | 2019-08-31 23:34 | XMS REPORT | Encounter Summary ---
Author Author [facility] Organization [facility] Address Unknown Phone Unavailable Care Team Providers Care Biology Instructor Name Role Phone Yulissa Zapata PCP Reason for Visit * Reason Comments INR Reminder 1st Attempt Encounter Details Care Team Description Date Type Department Benita Nelson, OYSTER WASHER [address] [place] [address] [phone] INR Reminder (1st Attempt ) 01/12/2019 Telephone [facility] [address] [place] [address] Social History Date Tobacco Use Types Packs/Day [...] - Nilson Holguin - 01/12/2019 4:17 PM CUT OFF MACHINE OPERATOR Called pt Left Detail Message on VML for a return call in regards to INR Reminde r being past due. TQ OFF MACHINE OPERATOR documented in this encounter Plan of Treatment Not on filedocumented as of this encounter Visit Diagnoses Not on filedocumented in this encounter
--- OUTSIDE RECORDS SUMMARY | 2019-08-31 23:34 | XMS REPORT | Encounter Summary ---
Author Author [facility] Organization [facility] Address Unknown Phone Unavailable Care Team Providers Care Second Mate Name Role Phone Yulissa Zapata PCP Reason for Visit * Auth/Cert Referred By Contact Referred To Contact Status Reason Specialty Diagnoses / Procedures Diagnoses DYSPHAGIA P rocedures FL ESOPHAGOGASTRODUOD ENOSCOPY TRANSORAL DIAGNOSTIC ESOPHAGOGASTRODUOD ENOSCOPY (EGD) Encounter Details Care Team Description Date Type Department Maxim Balderas MD [address] [place] [address] [phone] 01/01/2019 [place] [address] Social History Date Tobacco Use Types Packs/Day [...] "stuck" Essential hypertension GERD (gastroesophageal reflux disease) termite control servicer 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 The patient/patients client care representative appeared to understand the procedure, the [...] Specimen Tissue - Esophagus Narrative Performed At [facility] Pathology Group [facility] SURGICAL PATHOLOGY REPORT PATIENT: PAU MCCABE /AGE/SEX: 1950 (Age: 68) /F ID #: [id number] SUBMITTING PHYSICIAN: Maxim Ramey ra, MD CLIENT: [facility] COLLECTED: 01/01/2019 REPORTED: 01/02/2019 SPECIMEN #: [id number] ##################MICROSCOPIC INTERPRET ATION################## Esophagus, biopsy: - Esophagitis with increased eosi nophils (see comment). Comment: Sections of the esophageal bio psy demonstrate increased eosinophils numbering up to 22 per HPF. There is fo john eosinophilic microabscess formation. The findings are compatible with a diag nosis of eosinophilic esophagitis in the correct clinical and endoscopic context. Nato Benoit MD Report Electronically Signed Out CLW:01/02/19 WILLIAM(COMMERCIAL LINES MANAGER) CLINICAL HISTORY/IMPRESSION: Dysphagia; r/o eosinophilic esophagitis . [...] Professional Component performed by WILLIAM , a [facility] Pathologist located at [facility], [address] [place] [address] Technical Component performed at [address] [place] [address]###END OF REPORT### Performing Organization Address [facility] Ph one Number [facility] [address] [place], [place] [address] [address] * Prothrombin Time/INR (01/01/2019 9:25 AM CDT) Protime 21.7 (H) 11.4 - 15.0 sec [facility] INR 1.8 (H) 0.8 - 1.2 [facility] Specimen Blood Narrative Performed At This order is a replacement of the rejected order wit h accession number [facility] [id number]. LAB Performing Organization Address [facility] one Number [facility] [address] [place] [address] [facility] [id number] [place] [address] documented in this encounter Visit Diagnoses Not [...]
--- OUTSIDE RECORDS SUMMARY | 2019-08-31 23:35 | XMS REPORT | Encounter Summary ---
Author Author [facility] Organization [facility] Address Unknown Phone Unavailable Care Team Providers Care Monument Stonecutter Name Role Phone Yulissa Zapata PCP Reason for Visit * Reason Comments Appointment reschedule EGD Encounter Details Care Team Description Date Type Department Liss Golden MA Appointment (reschedule EGD) 12/22/2018 Telephone [facility] [address] [place] [address] Social History Date Tobacco Use [...] CDT Left a message on patient phone [phone] to reschedule EGD Dx: Dysphagia at the [facility] with any provider, Referral in chart. Patient was scheduled at [facility] with Dr. Christy but doesn't want to drive andrae t far. documented in this encounter Plan of Treatment Not on filedocumented as of this encounter Visit Diagnoses Not on filedocumented in this encounter
--- OUTSIDE RECORDS SUMMARY | 2019-08-31 23:35 | XMS REPORT | Encounter Summary ---
Author Author [facility] Organization [facility] Address Unknown Phone Unavailable Care Team Providers Care Batch Or Continuous Still Operator Name Role Phone Yulissa Zapata PCP Reason for Visit * Reason Comments INR Reminder 1st Attempt Encounter Details Care Team Description Date Type Department Rebeca Green, LITHOGRAPHIC RETOUCHER APPRENTICE FOREIGN POLICY OFFICER [address] [place] [address] [phone] INR Reminder (1st Attempt ) 12/04/2018 Telephone [facility] [address] [place] [address] Social History Date Tobacco Use Types Packs/Day [...]
--- OUTSIDE RECORDS SUMMARY | 2019-08-31 23:35 | XMS REPORT | Encounter Summary ---
Author Author [facility] Organization [facility] Address Unknown Phone Unavailable Care Team Providers Care Slip Caster Name Role Phone Yulissa Zapata PCP Encounter Details Care Team Description Date Type Department Mirna Pratt LPN slumber room attendant current use of antiarrhythmic drug; Persistent atrial fibrillation 12/05/2018 Anticoag visit [facility] [address] [place] [address] Social History Date Tobacco Use Types Packs/Day [...] documented in this encounter Visit Diagnoses Diagnosis slumber room attendant current use of antiarrhythmic drug Persistent atrial fibrillation Atrial fibrillation documented in this encounter
--- OUTSIDE RECORDS SUMMARY | 2019-08-31 23:35 | XMS REPORT | Encounter Summary ---
Author Author [facility] Organization [facility] Address Unknown Phone Unavailable Care Team Providers Care Chemical Plant Manager Name Role Phone Benny Yulissa PCP Reason for Referral * MRI/CAT/PET Scan (Routine) Referred By Contact Referred To Contact Status Reason Specialty Diagnoses / Procedures Lauro Daugherty MD [address] [place] [address] [facility] [address] [place] [address] Closed Cardiology Diagnoses Paroxysmal atrial fibrillation (HCC) P rocedures CV CT Heart pre Electrophysiology * Diagnostic Imaging (Routine) Referred By Contact Referred To Contact Status Reason Specialty Diagnoses / Procedures Lauro Daugherty MD [address] [place] [address] Closed Diagnoses Paroxysmal atrial fibrillation (HCC) P rocedures Electrocardiogram (ECG) without magnet Reason for Visit * Reason Comments paroxysmal atrial fib f/u on monnitor patch Encounter Details Care Team Description Date Type Department Lauro Daugherty MD [address] [place] [address] [phone] Paroxysmal atrial fibrillation (HCC) (Pr imary Dx); Chronic combined systolic and diastolic CHF, NYHA class 3 (HCC); Dilated cardiomyopathy (HCC); Essential hypertension; History of cardiomyopathy; senior care current use of anticoagulant therapy; Nonrheumatic mitral valve regurgitation; Mixed hyperlipidemia; Hypotension due to drugs; terminal make up operator current use of antiarrhythmic drug 12/30/2018 Office Visit [facility] [address] [place] [address] Social History Date Tobacco Use Types Packs/Day [...] lab and can be done at any [facility] Location. Cardiovascular Imaging will be in contact to enzo hernandez appointment. Left atrial ablation with general anesthetic with anticipation of procedure jose Calixmas. Cardiovascular Scheduling will be in contact to schedule this kelli ointment. Non-fasting lab will be done 5 to 7 days prior and may be done at any [facility] location. Medication Instructions: Continue Current Regimen Follow up with Advanced Practice Provider in 2 to 4 weeks at with either EP nurs e practitioner or physician provider in [facility]. Follow up with MD Dr. Lauro Daugherty in 3 months. Please call the Nurse Line at [phone] (EP Nurse Team). with any questions o r concerns. For medication refill needs, please first contact your pharmacy. For any [facility] scheduling questions, please john daigle . At [facility], high quality patient care is our top [...] a specially trained heart doct or (cardiac telephone operators supervisor) who will do the procedure. He or she will tell you how to get ready. You will likely be told to stop or changeyour heart rhyt hm medicines for a period of time before the procedure. Follow your doctors i nstructions. Also: Tell the doctor about all prescription and lykz-xtx-inbepwo medicines you mary ann e. This includes herbs, supplements, and vitamins. It also includes daily medici german, such as insulin or blood thinners. If you are allergic to any medicines, te ll the doctor. Have any routine tests, such as blood tests, as recommended. Dont eat or drink [id number] hoursbefore the procedure. How catheter ablation is [...] insertion site. (extremely rare) Date Last Reviewed: 07/10/201519991801-0934 [employer]. [address] [place] [address] 7. All rights reserved. This information is [...] involves adding addition al heartbeats in an yarn dyer fashion to test the heart's electrical system. [...] fever over 100.4F (38C) Date Last Reviewed: 08/10/201519994745-2474 [employer]. [address] [place] [address] 7. All rights reserved. This information is not intended as a substitute for pro fessional medical care. Always follow your healthcare professional's instruction s. documented in this encounter Progress Notes * Lauro Daugherty MD - 12/30/2018 11:30 AM CDT [facility] Jayson Appointment Date: 12/30/2018 Yulissa Zapata MD [address] [place] [address] Dr [address] [facility] [address] RE: Pau Mccabe : 1950 Visit provider: [...] if she had any marked improvement after confucianism of sinus rhythm, which she did to [...] Depression DEPRESSIVE DISORDER Essential hypertension ESSENTIAL HYPERTENSION senior care current use of anticoagulant therapy LONG-TERM CURRENT USE OF ANTI COAGULANT Dilated cardiomyopathy (HCC) DILATED CARDIOMYOPATHY Chronic combined systolic and diastolic CHF, NYHA class 3 (HCC) CHRONIC COMB INED SYSTOLIC AND DIASTOLIC HEART FAILURE JJ (obstructive sleep apnea) OBSTRUCTIVE SLEEP APNEA SYNDROME senior care current use of antiarrhythmic drug LONG-TERM CURRENT [...] Essential hypertension GERD (gastroesophageal reflux disease) senior care current use of antiarrhythmic drug senior care current use of anticoagulant therapy Mitral regurgitation [...] cardiomyopathy (HCC) Essential hypertension History of cardiomyopathy senior care current use of anticoagulant therapy Nonrheumatic mitral valve regurgitation Mixed hyperlipidemia Hypotension due to drugs terminal make up operator current use of antiarrhythmic drug Impression: 1. [...] agree to proceed. She does live in [place] for the year. Therefore, it is possible [...] would likely require follow up with a artistic director in [place]. She does understand the concepts and she [...] Performed At [facility] NAME: PAU MCCABE : [id number] GENDER: F ACCOUNT NUM: [id number] TEST: CTA of Pulmonary Veins With Con trast TEST DATE: TEST LOCATION: [facility] INPATIENT: Outpatient REFERRING PHYSICIAN: Lauro Daugherty MD [...] in this study. OVERREAD: Fredo Padron MD [address], [address] [place] [address] D: 2019-01-06 00:00:00.0 T: 2019-01-06 09:00:13.0 PROVIDER APPROVAL DATETIME: 2018-12-10 09:26:43.0 Procedure Note Interface, External Ris In 01/06/2019 11:38 AM CDT NAME: PAU MCCABE : [id number] GENDER: F ACCOUNT NUM: [id number] TEST: CTA of Pulmonary Veins With Contrast TEST DATE: TEST LOCATION: [facility] INPATIENT: Outpatient REFERRING PHYSICIAN: Lauro Daugherty MD [...] study. OVERREAD: Fredo Padron MD [address], [address] [place] [address] D: 2019-01-06 00:00:00.0 T: 2019-01-06 09:00:13.0 PROVIDER APPROVAL DATETIME: 2019-01-06 09:26:43.0 Performing Organization Address City/State/Zipcode Ph one Number [facility] * Prothrombin Time/INR (01/01/2019 11:39 AM CDT) Protime 22.0 (H) 11.4 - 15.0 sec [facility] INR 1.9 (H) 0.8 - 1.2 [facility] Specimen Blood Performing Organization Address [facility] Ph one Number [facility] [address] [place] [address] [employer] [facility] [address] [place] [address] * CBC and Diff (manual diff if necessary) (01/01/2019 11:39 AM CDT) WBC 4.81 4.00 - 11.00 TH/uL [facility] RBC 3.78 (L) 4.00 - 5.00 MIL/uL [facility] Hemoglobin 12.7 12.0 - 15.0 g/dL [facility] Hematocrit 38 36 - 45 % [employer] [facility] MCV 100 (H) 80 - 99 fL [employer] [facility] MCH 34 27 - 34 pg [employer] [facility] MCHC 34 32 - 36 % [employer] [facility] RDW 13.0 11.5 - 14.5 % [facility] Platelet Count 137 (L) 140 - 400 TH/uL [facility] MPV 10.6 9.4 - 12.3 fL [facility] Nucleated RBCs 0 0 - 0 /100 [employer] [facility] % Neutrophils 66 45 - 78 % [employer] [facility] %Lymphocytes 18 15 - 47 % [facility] %Monocytes 9 0 - 12 % [facility] %Eosinophils 5 0 - 7 % [employer] [facility] %Basophils 1 0 - 2 % [employer] [facility] % Imm Grans 0 0 - 1 % [facility] # Granulocytes 3.18 1.70 - 6.80 TH/uL [facility] # Lymphocytes 0.88 (L) 1.00 - 3.30 TH/uL [facility] # Monocytes 0.45 0.20 - 0.90 TH/uL [facility] # Eosinophils 0.25 0.00 - 0.40 TH/uL [facility] # Basophils 0.05 0.00 - 0.10 TH/uL [facility] Specimen Blood Performing Organization Address [facility] one Number [facility] [address] [place] [address] [facility] [address] [place] [address] * Basic Metabolic Panel (01/01/2019 11:39 AM CDT) [facility] Sodium 140 133 - 147 MEQ/L [facility] Potassium 4.1 3.5 - 5.3 MEQ/L [facility] Chloride 102 96 - 112 MEQ/L [facility] Carbon Dioxide 32 20 - 32 MEQ/L [facility] Anion Gap 6 5 - 17 [facility] Calcium 9.0 8.4 - 10.5 mg/dL [facility] Glucose 105 (H) 70 - 100 mg/dL [facility] Blood Urea 18 7 - 26 mg/dL [facility] Creatinine 0.9 0.4 - 1.1 mg/dL [facility] eGFR Female AA 74 60 - 200 [facility] mL/min/1.73sq m [facility] eGFR Female 62 60 - 200 [employer] Non-AA mL/min/1.73sq m [facility] Specimen Blood Performing Organization Address [facility] one Number [facility] [address] [place] [address] [facility] [address] [place] [address] * Electrocardiogram (ECG) without magnet (12/30/2018 11:40 AM CDT) Pathologist [facility] QRSd 98 TRACEMASTER QT 476 TRACEMASTER QTC 480 TRACEMASTER ECGHR 61 TRACEMASTER ECGPR 144 TRACEMASTER Specimen Narrative Performed At [facility] [place] Test Date: 2018-12-30 Pat Name: PAU MCCABE Department: [facility] Room: Gender: Female Shipping Hand: [id number] : 1950 Requested By: LAURO DAUGHERTY Order Number: [id number] Reading MD: Lauro Daugherty Measurements Intervals [place] Rate: 61 P: 38 HI: 144 QRS: -5 QRSD: 98 T: 34 QT: 476 QTc: 480 Interpretive Statements SINUS RHYTHM Electronically Signed On 01-05-2019 6:0 7:41 CDT by Lauro Daugherty Procedure Note Interface, External Ris In - 01/05/2019 6:07 AM CDT [facility] [place] Test Date: 2018-12-30 Pat Name: PAU MCCABE Department: [facility] Room: Gender: Female Shipping Hand: [id number] : 1950 Requested By: LAURO DAUGHERTY Order Number: [id number] Reading MD: Lauro Daugherty Measurements Intervals [place] Rate: 61 P: 38 HI: 144 QRS: -5 QRSD: 98 T: 34 [...] of other diseases of c irculatory system terminal make up operator current use of anticoagulant therapy Nonrheumatic mitral valve regurgitation Mixed hyperlipidemia Hypotension due to drugs Other iatrogenic hypotension senior care current use of antiarrhythmic drug documented in this encounter
--- OUTSIDE RECORDS SUMMARY | 2019-08-31 23:35 | XMS REPORT | Encounter Summary ---
Author Author [facility] Organization [facility] Address Unknown Phone Unavailable Care Team Providers Care Solution Maker Name Role Phone Yulissa Zapata PCP Encounter Details Care Team Description Date Type Department Ibis Goss LPN exterminator helper current use of antiarrhythmic drug; Persistent atrial fibrillation 12/19/2018 Anticoag visit [facility] [address] [place] [address] Social History Date Tobacco Use Types Packs/Day [...] Live call from client INR ; Per [facility] Warfarin Outpatient ACC; Indicatio ns Persistent Afib [...] documented in this encounter Visit Diagnoses Diagnosis [facility]DC current use of antiarrhythmic drug Persistent atrial fibrillation (HCC) Atrial fibrillation documented in this encounter
--- OUTSIDE RECORDS SUMMARY | 2019-08-31 23:35 | XMS REPORT | Encounter Summary ---
Author Author Organization Address Unknown Phone Unavailable Care Team Providers Care Project Production Engineer Name Role Phone Yulissa Zapata PCP Encounter Details Care Team Description Date Type Department Kristi Chapin LPN reducing machine operator current use of antiarrhythmic drug; Persistent atrial fibrillation 12/12/2018 Anticoag visit [facility] [address] [place] [address] Social History Date Tobacco Use Types Packs/Day [...] of this encounter Progress Notes * Kristi Chapin LPN - 12/12/2018 2:11 PM CDT [facility] Anticoagulation protocol 2.0-3.0 Table 7. No dose [...]
--- OUTSIDE RECORDS SUMMARY | 2019-08-31 23:35 | XMS REPORT | Encounter Summary ---
Author Author [facility] Organization [facility] Address Unknown Phone Unavailable Care Team Providers Care Curriculum Designer Name Role Phone Yulissa Zapata PCP Encounter Details Care Team Description Date Type Department Sonya Bailey RN 12/04/2018 Abstract [facility] [address] [place] [address] [place] [address] Social History Date Tobacco Use [...]
--- OUTSIDE RECORDS SUMMARY | 2019-08-31 23:35 | XMS REPORT | Encounter Summary ---
Author Author [facility] Organization [facility] Address Unknown Phone Unavailable Care Team Providers Care Research Associate Professor Name Role Phone Yulissa Zapata PCP Reason for Visit * Reason Comments Medication questions Encounter Details Care Team Description Date Type Department Oriana Reyes tunnel heading supervisor questions 12/12/2018 Telephone [facility] [address] [facility] [address] [place] [address] Social History Date Tobacco Use [...] Also she should FU with an EP PIANO INSTRUCTOR in a month. Thank you . ----- [...]
--- OUTSIDE RECORDS SUMMARY | 2019-08-31 23:35 | XMS REPORT | Encounter Summary ---
Author Author [facility] Organization [facility] Address Unknown Phone Unavailable Care Team Providers Care Bar Gauger And Lubricator Tender Name Role Phone Yulissa Zapata PCP Encounter Details Care Team Description Date Type Department Monika Lund MA 12/24/2018 Telephone [facility] [address] [address] Social History Date Tobacco Use Types Packs/Day [...]
--- OUTSIDE RECORDS SUMMARY | 2019-08-31 23:35 | XMS REPORT | Encounter Summary ---
Author Author [facility] Organization [facility] Address Unknown Phone Unavailable Care Team Providers Care Ferry Captain Name Role Phone Yulissa Zapata PCP Reason for Visit * Auth/Cert Referred By Contact Referred To Contact Status Reason Specialty Diagnoses / Procedures Diagnoses Atrial fibrillation, unspecified type (HCC) joint terminal attack controller current use of anticoagulant therapy Atrial fibrillation (HCC) christi A trial fibrillation (HCC) Procedures ECHO TRANSESOPHAGEAL WITH DOPPLER AND COLOR FLOW Encounter Details Care Team Description Date Type Department Nirav Anderson MD [address] [place] [address] [phone] Jeannette Herbert DO [address] [facility] [place] [address] [phone] 11/24/2018 [facility] [address] [place] [address] Anesthesia Record Responsible Anesthesiologist Anesthesia Start Time [...] to blood products. Plan discussed with anesthesiologist assistant finance director and resident. Post-operative analgesia: routine analgesia and [...]
--- OUTSIDE RECORDS SUMMARY | 2019-08-31 23:35 | XMS REPORT | Encounter Summary ---
Author Author [facility] Organization [facility] Address Unknown Phone Unavailable Care Team Providers Care Bridge Crew Member Name Role Phone Yulissa Zapata PCP Encounter Details Care Team Description Date Type Department Ibis Goss LPN manager long term care current use of antiarrhythmic drug; Persistent atrial fibrillation 12/08/2018 Anticoag visit [facility] [address] [facility] [address] [place] [address] Social History Date Tobacco Use Types Packs/Day [...] regarding INR results and recommendations ; Per [facility] Warfarin Outpatient ACC; Indications Persistent Afib [...] documented in this encounter Visit Diagnoses Diagnosis snf current use of antiarrhythmic drug Persistent atrial fibrillation Atrial fibrillation documented in this encounter
--- OUTSIDE RECORDS SUMMARY | 2019-08-31 23:35 | XMS REPORT | Encounter Summary ---
Author Author [facility] Organization [facility] Address Unknown Phone Unavailable Care Team Providers Care Seam Stay Stitcher Name Role Phone Yulissa Zapata PCP Reason for Visit * Electrophysiology (Routine) Referred By Contact Referred To Contact Status Reason Specialty Diagnoses / Procedures Ze Basurto PA-C [address] [place] [address] [facility] Cardio Rhythm [address] [place] [address] Closed Cardiology Diagnoses Atrial fibrillation, unspecified type (HCC) P rocedures Cardiac Monitoring Patch (14 day) Encounter Details Care Team Description Date Type Department Ze Basurto PA-C [address] [place] [address] [phone] Atrial fibrillation, unspecified type (H CC) 12/09/2018 Ancillary [facility] Procedure [facility] [address] [place], [place] [address] Social History Date Tobacco Use Types Packs/Day [...] PM CDT) Specimen Narrative Performed At [facility] Test Date: 2018-12-30 Pat Name: PAU MCCABE Department: Room: Gender: Female Wheel Setter: : 1950 Requested By: ZE BASURTO Order Number: [id number] Jessica MD: Will Perkins Interpretive Statements [facility] [place] [facility] [address] [place] [address] MONITORING P ATCH REPORT Charge Auditor Date: 2018-12-30 RE: Pau Mccabe : 1950 [...] Ris In - 12/30/2018 6:41 PM CDT [facility] Test Date: 2018-12-30 Pat Name: PAU MCCABE Department: Room: Gender: Female Wheel Setter: : 1950 Requested By: ZE BASURTO Order Number: [id number] Jessica MD: Will Perkins Interpretive Statements [facility] [place] [address] [place] [address] 64 MONITORING PATCH REPORT Charge Auditor Date: 2018-12-30 RE: Pau Mccabe : 1950 [...]
--- OUTSIDE RECORDS SUMMARY | 2019-08-31 23:35 | XMS REPORT | Encounter Summary ---
Author Author [facility] Organization [facility] Address Unknown Phone Unavailable Care Team Providers Care Technical Support Analyst Name Role Phone Yulissa Zapata PCP Encounter Details Care Team Description Date Type Department Tamika Jason MA 12/25/2018 Telephone [facility] [address] [place] [address] Social History Date Tobacco Use Types Packs/Day [...]
--- OUTSIDE RECORDS SUMMARY | 2019-08-31 23:35 | XMS REPORT | Encounter Summary ---
Author Author [facility] Organization [facility] Address Unknown Phone Unavailable Care Team Providers Care Lock Plater Name Role Phone Yulissa Zapata PCP Encounter Details Care Team Description Date Type Department Mirna Pratt LPN Persistent atrial fibrillation (HCC) 11/24/2018 Anticoag visit [facility] [address] [facility] [address] [place] [address] Social History Date Tobacco Use Types Packs/Day [...] at listed mobile number, went straight to [facility] and voicemail was full. Called on listed home number, a man answered the phone. Asked for Brynn and the man stated, "Umm, I'm not with her right now, yo u'll have to call her number. Thank you". Phone call become disconnected. Derrick ESTEVEZ * Mirna Pratt LPN - 11/24/2018 2:09 PM CDT Kristina Conrad NP P [facility] Anticoagulation Nurses Patient wishes to change to our anticoagulation clinic, previously managed by luciana sethi picked edge sewing machine operator in [place], [place]. INR on day of discharge 1.8. She currently selvin tors with home machine. I instructed her to recheck in two days (11/26/18). Disch arging on warfarin 2.5mg daily. documented in this encounter Plan of Treatment Not on filedocumented as of this encounter Visit Diagnoses Diagnosis Persistent atrial fibrillation (HCC) Atrial fibrillation documented in this encounter
--- OUTSIDE RECORDS SUMMARY | 2019-08-31 23:35 | XMS REPORT | Encounter Summary ---
Author Author [facility] Organization [facility] Address Unknown Phone Unavailable Care Team Providers Care Department Store Door Greeter Name Role Phone Benny, Yulissa PCP Reason for Referral * Electrophysiology (Routine) Referred By Contact Referred To Contact Status Reason Specialty Diagnoses / Procedures Ze Basurto PA-C [address] [place] [address] [facility] Cardio Rhythm [address] [place] [address] Closed Cardiology Diagnoses Atrial fibrillation, unspecified type (HCC) P rocedures Cardiac Monitoring Patch (14 day) * Diagnostic Imaging (Routine) Referred By Contact Referred To Contact Status Reason Specialty Diagnoses / Procedures Ze Basurto PA-C [address] [place] [address] Closed Diagnoses Paroxysmal atrial fibrillation (HCC) P rocedures Electrocardiogram (ECG) Reason for Visit * Reason Comments Post DCCV Atrial fibrillation Encounter Details Care Team Description Date Type Department Ze Basurto PA-C [address] [place] [address] [phone] Paroxysmal atrial fibrillation (HCC) (Pr imary Dx); Atrial flutter, unspecified type (HCC); 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 For any [facility] scheduling questions, please john l . At [facility], high quality patient care is our top priority. To ensure our cardiovascular standards are continuously met, you may receive a survey via [employer] or text message, and we ask that you please take the time to fill it out. We strive to ensure you are very satisfied with every visit. Thank you in advance for taking the time to fill this out. It was a pleasure to meet you. Ze Basurto P.A.-C documented in this encounter Progress Notes * Ze Basurto PA-C - 12/09/2018 11:30 AM CDT [facility] Appointment Date: 12/09/2018 Yulissa Zapata MD [address] [place] [address] Dr [address] [facility] [address] RE: Pau Mccabe : 1950 Visit provider: [...] today after her recent hospitaliza tion at [facility] [place] at [facility] on the [place] from 0 11/20/2018-11/24/2018 following initiation of Tikosyn. 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 use of anticoagulant therapy LONG-TERM CURRENT USE OF ANTI COAGULANT Dilated cardiomyopathy (HCC) DILATED CARDIOMYOPATHY Chronic combined systolic and diastolic CHF, NYHA class 3 (HCC) CHRONIC COMB INED SYSTOLIC AND DIASTOLIC HEART FAILURE JJ (obstructive sleep apnea) OBSTRUCTIVE SLEEP APNEA SYNDROME Persistent atrial fibrillation PERSISTENT ATRIAL FIBRILLATION alf current use of antiarrhythmic drug LONG-TERM CURRENT USE OF DRUG T HERAPY Hypotension due to drugs DRUG-INDUCED HYPOTENSION History of cardiomyopathy HISTORY OF CARDIOMYOPATHY Atrial flutter (HCC) ATRIAL FLUTTER Past Medical History: Diagnosis Date Atrial fibrillation (HCC) Atrial fibrillation with RVR ([facility]) 09/10/2018 Noted on 24 Hour Holter Depression Dilated cardiomyopathy (HCC) 11/20/2018 Essential hypertension GERD (gastroesophageal reflux disease) 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 current use of anticoagulant therapy Mitral regurgitation [...] type (HCC) Paroxysmal atrial fibrillation (HCC) Yes 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 current use of anticoagulant therapy History of [...] PM CDT) Specimen Narrative Performed At [facility] Test Date: 2018-12-30 Pat Name: PAU MCCABE Department: Room: Gender: Female Asian Studies Program Chair: : 1950 Requested By: ZE BASURTO Order Number: [id number] Jessica MD: Will Perkins Interpretive Statements [facility] [place] [address] [place], [place] [address] MONITORING P ATCH REPORT Business Continuity Planning Director Date: 2018-12-30 RE: Pau Estelle : 1950 [...] Ris In - 12/30/2018 6:41 PM CDT [facility] Test Date: 2018-12-30 Pat Name: PAU MCCABE Department: Room: Gender: Female Asian Studies Program Chair: : 1950 Requested By: ZE BASURTO Order Number: [id number] Jessica MD: Will Perkins Interpretive Statements [facility] [place] [address] [place], [place] [address] MONITORING PATCH REPORT Business Continuity Planning Director Date: 2018-12-30 RE: Pau Mccabe : 1950 [...] [address] [employer] Specimen Narrative Performed At [facility] Test Date: 2018-12-09 Pat Name: PAU MCCABE Department: [facility] Room: Gender: Female Asian Studies Program Chair: [id number] : 1950 Requested By: ZE BASURTO Order Number: [id number] Reading : Brent Agarwal Measurements Intervals [place] Rate: 117 P: DE: QRS: -2 QRSD: 92 T: 25 QT: 360 QTc: 503 Interpretive Statements Atrial flutter with variable AV conduct ion Electronically Signed On 12-09-2018 17:1 6:41 CDT by Brent Agarwal Procedure Note Interface, External Ris In - 12/09/2018 5:16 PM CDT [facility] Test Date: 2018-12-09 Pat Name: PAU MCCABE Department: [facility] Room: Gender: Female Asian Studies Program Chair: [id number] : 1950 Requested By: ZE BASURTO Order Number: [id number] Reading : Brent Agarwal Measurements Intervals [place] Rate: 117 P: DE: QRS: -2 QRSD: 92 T: 25 QT: 360 QTc: 503 Interpretive Statements Atrial flutter with variable AV conduction Electronically Signed On 12-09-2018 17:16:41 CDT by Brent Agarwal Performing Organization Address City/State/Zipcode Ph one Number [employer] documented in this encounter Visit Diagnoses Diagnosis Atrial flutter, unspecified type (HCC) Paroxysmal atrial fibrillation (HCC) Atrial fibrillation 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
--- OUTSIDE RECORDS SUMMARY | 2019-08-31 23:35 | XMS REPORT | Encounter Summary ---
Author Author [facility] Organization [facility] Address Unknown Phone Unavailable Care Team Providers Care Fluid Designer Name Role Phone Yulissa Zapata PCP Encounter Details Care Team Description Date Type Department Kristi Chapin LPN terminologist current use of antiarrhythmic drug; Persistent atrial fibrillation 12/08/2018 Anticoag visit [facility] [address] [facility] [address] [place] [address] Social History Date Tobacco Use Types Packs/Day [...] - 12/08/2018 11:13 AM CDT [place] from [facility] call in Critical INR with vena puncture for Client ; INR 6. 0 Cont with dosing instruction per protocol By Fatuma Chapin LPN see Note on 11/11 naresh ESTEVEZ * Kristi Chapin LPN - 12/08/2018 11:13 AM CDT [facility] Anticoagulation protocol 2.0-3.0 Table 7. Consider holding 1-2 doses. INR 7 .2 Recommendation:Hold dose tonight and tomorrow. Recheck 12-10-2018. See Note. Fatuma Hill LPN Note:Patient denies any changes in diet, however she states she is taking an ant ibiotic. Patient is going to [employer] to get another reading today. Constance ISLAS Called in a standing order for patient. Constance ESTEVEZ documented in this encounter Plan of Treatment Order Schedule Name Type Priority Associated Diag noses 26 Occurrences starting 12/08/2018 until 06/08/2019 Prothrombin Time/INR Lab Routine alf current use of antiarrhythmic drug Persistent atrial [...]
--- OUTSIDE RECORDS SUMMARY | 2019-08-31 23:35 | XMS REPORT | Encounter Summary ---
Author Author [facility] Organization [facility] Address Unknown Phone Unavailable Care Team Providers Care Director Web Name Role Phone Yulissa Zapata PCP Encounter Details Care Team Description Date Type Department Mayte Diaz RN 12/25/2018 Abstract [facility] [address] [place] [address] Social History Date Tobacco Use Types Packs/Day [...]
--- OUTSIDE RECORDS SUMMARY | 2019-08-31 23:35 | XMS REPORT | Encounter Summary ---
Author Author [facility] Organization [facility] Address Unknown Phone Unavailable Care Team Providers Care Quote Clerk Name Role Phone Yulissa Zapata PCP Encounter Details Care Team Description Date Type Department Erica Lopez LPN care home current use of antiarrhythmic drug; Persistent atrial fibrillation 12/10/2018 Anticoag visit [facility] [address] [place] [address] Social History Date Tobacco Use Types Packs/Day [...] Pt also has EGD on Sat12-12-18- Per [facility] Warfarin Outpatient Anticoagulation Guide: INR:5.1 . [...] t o check INR tomorrow and call [facility]- documented in this encounter Plan of Treatment Not on filedocumented as of this encounter Procedures Comments Procedure Name Priority Date/Time Associated Diag nosis PROTIME-INR Routine 12/10/2018 documented in this encounter Results * Protime-INR (12/10/2018) INR 5.1 (A)Comment: Recommend Hold 2 - 3 warfarin and recheck INR tomorrow 12-11-18 Specimen Blood Resulting Agency Comment documented in this encounter Visit Diagnoses Diagnosis care home current use of antiarrhythmic drug Persistent atrial fibrillation (HCC) Atrial fibrillation documented in this encounter
--- OUTSIDE RECORDS SUMMARY | 2019-08-31 23:35 | XMS REPORT | Encounter Summary ---
Author Author [facility] Organization [facility] Address Unknown Phone Unavailable Care Team Providers Care Supervisor Drying And Softening Name Role Phone Yulissa Zapata PCP Encounter Details Care Team Description Date Type Department Lian Pablo LPN intermediate current use of antiarrhythmic drug 12/26/[address] Anticoag [address] [facility] [address] [place] [address] Social History Date Tobacco Use Types Packs/Day [...] documented in this encounter Visit Diagnoses Diagnosis salvage determiner current use of antiarrhythmic drug documented in this encounter
--- OUTSIDE RECORDS SUMMARY | 2019-08-31 23:35 | XMS REPORT | Encounter Summary ---
Author Author [facility] Organization [facility] Address Unknown Phone Unavailable Care Team Providers Care Municipal Firefighter Name Role Phone Yulissa Zapata PCP Reason for Visit * Reason Comments Medication questions Started antibiotic Encounter Details Care Team Description Date Type Department Sindi Alex RN Medication questions (Started antibiotic ) 12/10/2018 Telephone [facility] [address] [facility] [address] [place] [address] Social History Date Tobacco Use [...] Relayed that we wou ld be sure [facility] clinic is aware of current antibiotic course. She also inquired about obtaining a letter to provide to [employer] to obta in refund on recent air [...] she has a UTI, she is in [place] and went to an urgent care [facility]. They prescribed Nitrofurantoin 100 mg BID for [...]
--- OUTSIDE RECORDS SUMMARY | 2019-08-31 23:35 | XMS REPORT | Encounter Summary ---
Author Author [facility] Organization [facility] Address Unknown Phone Unavailable Care Team Providers Care Teletypewriter Operator Name Role Phone Yulissa Zapata PCP Reason for Referral * EGD (Routine) Referred By Contact Referred To Contact Status Reason Specialty Diagnoses / Procedures Yulissa Zapata MD [address] [place] [address] Dr [address] [place] [address] [facility] [address] [place] [address] Closed Specialty Services Gastroenterology Diagnoses Required Dysphagia, unspecified type Encounter Details Care Team Description Date Type Department Yulissa Zapata MD [address] [place] [address] [place] [address] Dysphagia, unspecified type (Primary Dx) 12/02/2018 Transcribe [facility] [address] [facility] [address] [place] [address] Social History Date Tobacco Use [...]
--- OUTSIDE RECORDS SUMMARY | 2019-08-31 23:35 | XMS REPORT | Encounter Summary ---
Author Author [facility] Organization [facility] Address Unknown Phone Unavailable Care Team Providers Care Public Health Dentist Name Role Phone Yulissa Zapata PCP Encounter Details Care Team Description Date Type Department Erica Lopez LPN correction current use of antiarrhythmic drug; Persistent atrial fibrillation 12/11/2018 Anticoag visit [facility] [address] [facility] [address] [place] [address] Social History Date Tobacco Use Types Packs/Day [...] LPN - 12/11/2018 5:34 PM CDT Per [facility] Warfarin Outpatient Anticoagulation Guide: INR:3.5hm. INR POINT [...] Diagnosis correction current use of antiarrhythmic drug Persistent atrial fibrillation (HCC) Atrial fibrillation documented in this encounter
--- OUTSIDE RECORDS SUMMARY | 2019-08-31 23:35 | XMS REPORT | Encounter Summary ---
Author Author [facility] Organization [facility] Address Unknown Phone Unavailable Care Team Providers Care Expansion Envelope Maker Hand Name Role Phone Yulissa Zapata PCP Encounter Details Care Team Description Date Type Department Mirna Pratt LPN Persistent atrial fibrillation (HCC); cash application clerk (current) use of anticoagulants 11/26/2018 Anticoag visit [facility] [address] [place] [address] Social History Date Tobacco Use Types Packs/Day [...] 8. Spoke with pt in regards to [facility] enrollment. Pt has been on Warfarin for at least 10 years, pt is testing with a home monitor. Confirmed dose and RX with pt. Routed message to BRIELLE Holguin to link [employer] account with [facility]. Discussed the following education and pt v/u and had no further questions. Letitia garcia LPN You have been started on a new medication called Coumadin or the generic Warfari n. There are several branded generics that may also be used. You are now enrolle d in our Anticoagulation Clinic. Anticoagulation Clinic phone number is [phone] Our clinic follows the same schedule as [facility] consultants Sat-Saturday 8am-5pm If you choose to have your labs drawn at an outside facility (somewhere other an [facility]) please keep in mind it may take [...] Coumadin/Warfarin needs to be held you r Interior Design Professional needs to be aware of this. Please call your Interior Design Professional nurse team . Once the doctor has provided his/her recommendations then the Anticoagulati on Clinic will be notified and we can add this to your anticoagulation calendar. Please read the specific handouts provided to you. Thank you, ACC: [phone] the [facility]oe at [facility] documented in this encounter Plan of Treatment Not on filedocumented as of this encounter Procedures Comments Procedure Name Priority Date/Time Associated Diag nosis PROTIME-INR Routine 11/26/2018 documented in this encounter Results * Protime-INR (11/26/2018) INR 2.8Comment: Recommend continue 2 - 3 2.5 mg every day, retest 12/03/18 Specimen Blood documented in this encounter Visit Diagnoses Diagnosis Persistent atrial fibrillation (HCC) Atrial fibrillation cash application clerk (current) use of anticoagulan ts Long-term (current) use of anticoagulan ts documented in this encounter
--- OUTSIDE RECORDS SUMMARY | 2019-08-31 23:36 | XMS REPORT | Encounter Summary ---
Author Author [facility] Organization [facility] Address Unknown Phone Unavailable Care Team Providers Care Fire Crew Specialist Name Role Phone PCP Unavailable Encounter Details Care Team Description Date Type Department Tamica Forrest RN 11/19/2018 Orders for [address] [address] Social History Date Tobacco Use Types Packs/Day [...]
--- OUTSIDE RECORDS SUMMARY | 2019-08-31 23:36 | XMS REPORT | Encounter Summary ---
Author Author [facility] Organization [facility] Address Unknown Phone Unavailable Care Team Providers Care Marine Service Operator Name Role Phone PCP Unavailable Reason for Referral * Diagnostic Imaging (Routine) Referred By Contact Referred To Contact Status Reason Specialty Diagnoses / Procedures Lauro Daugherty MD [address] [place] [address] [facility] Ultrasound [address] [place] [address] Closed Cardiology Diagnoses Atrial fibrillation, unspecified type (HCC) intermediate designer current use of anticoagulant therapy P rocedures Echo Transesophageal with Doppler and Color Flow * Diagnostic Imaging (Routine) Referred By Contact Referred To Contact Status Reason Specialty Diagnoses / Procedures Lauro Daugherty MD [address] [facility] [address] [place] [address] Closed Diagnoses Atrial fibrillation, unspecified type (HCC) P rocedures Electrocardiogram (ECG) without magnet Reason for Visit * Reason Comments Atrial flutter Atrial fibrillation Encounter Details Care Team Description Date Type Department Lauro Daugherty MD [address] [address] [place] [address] [phone] Atrial fibrillation, unspecified type (H CC) (Primary Dx); Essential hypertension; intermediate designer current use of anticoagulant therapy; Non-rheumatic mitral regurgitation 11/03/2018 Office Visit [facility] [address] [place] [address] Social History Date Tobacco Use Types Packs/Day [...] Daugherty Please call the Nurse Line at [phone] (EP Nurse Team). with any questions o r concerns. For medication refill needs, please first contact your pharmacy. For any [facility] scheduling questions, please john daigle . At [facility], high quality patient care is our top priority. To ensure our cardiovascular standards are continuously met, you may receive a survey via [employer] or text message, and we ask [...] Daugherty MD - 11/03/2018 1:15 PM CDT [facility] Jayson Appointment Date: 11/03/2018 [...] remains extremely short of breath consistent with [place] Heart Association class III status. She has [...] Depression DEPRESSIVE DISORDER Essential hypertension ESSENTIAL HYPERTENSION shelter current use of anticoagulant therapy LONG-TERM CURRENT USE OF ANTI COAGULANT Past Medical History: Diagnosis Date Atrial fibrillation (HCC) Depression Essential hypertension GERD (gastroesophageal reflux disease) intermediate designer current use of anticoagulant therapy Mitral regurgitation [...] fibrillation, unspecified type (HCC) Yes Essential hypertension shelter current use of anticoagulant therapy Non-rheumatic mitral [...] or through an AV node ablate and RESIDENTIAL CARPENTER-P device. This would hopefully result in improvement [...] PAU MCCABE Date: 11/20/2018 09:10 Chart #: [id number] : 1950 Gender F Location: [facility] OP Sono: ab ler : Age: 68 Room #: OP Referring: LAURO DAUGHERTY MD Fellow: Indication:intermediate designer current use o f anticoagulant therapy; Atrial fibrillation, unspecified type (HCC), Atrial fibr illation I480 Procedure: The patient was kept [employer] after midnight. Informed consent was obtained. [...] PAU MCCABE Date: 11/20/2018 09:10 Chart #: [id number] : 1950 Gender F Location: [facility] OP Sono: mcayler : Age: 68 Room #: OP Referring: LAURO DAUGHERTY MD Fellow: Indication:intermediate designer current use of anticoagulant therapy; Atrial fibrillation, [...] 20 November 2018 12:52 Performing Organization Address City/[facility] Ph one Number [email or web address] * Electrocardiogram (ECG) without magnet (11/03/2018 1:08 PM CDT) QRSd 90 [facility] QT 356 [facility] QTC 480 [facility] ECGHR 109 [facility]ER Specimen Narrative Performed At [facility] Test Date: 2018-11-03 Pat Name: PAU MCCABE Department: [facility] Room: Gender: Female Food Safety Officer: [id number] : 1950 Requested By: LAURO DAUGHERTY Order Number: [id number] Reading MD: Lauro Daugherty Measurements Intervals [place] Rate: 109 P: NE: QRS: -11 QRSD: 90 T: 41 QT: 356 QTc: 480 Interpretive Statements ATRIAL FIBRILLATION, V-RATE 88-134 PROBABLE INFERIOR INFARCT, AGE INDETERM INATE CONSIDER POSTERIOR WALL INVOLVEMENT Electronically Signed On 11-10-2018 9:18: 14 CDT by Lauro Daugherty Procedure Note Interface, External Ris In - 11/10/2018 9:18 AM CDT [facility] Test Date: 2018-11-03 Pat Name: PAU MCCABE Department: [facility] Room: Gender: Female Food Safety Officer: [id number] : 1950 Requested By: LAURO DAUGHERTY Order Number: [id number] Reading MD: Lauro Daugherty Measurements Intervals [place] Rate: 109 P: NE: QRS: -11 QRSD: 90 T: 41 QT: 356 QTc: 480 Interpretive Statements ATRIAL FIBRILLATION, V-RATE 88-134 PROBABLE INFERIOR INFARCT, AGE INDETERMINATE CONSIDER POSTERIOR WALL INVOLVEMENT Electronically Signed On 11-10-2018 9:18:14 CDT by Lauro Daugherty Performing Organization Address [facility] Ph one Number [email or web address] documented in this encounter Visit Diagnoses Diagnosis Atrial fibrillation, unspecified type ( HCC) Essential hypertension Unspecified essential hypertension intermediate designer current use of anticoagulant therapy Non-rheumatic mitral regurgitation documented in this encounter
--- OUTSIDE RECORDS SUMMARY | 2019-08-31 23:36 | XMS REPORT | Encounter Summary ---
Author Author [facility] Organization [facility] Address Unknown Phone Unavailable Care Team Providers Care Balancing Machine Operator Name Role Phone PCP Unavailable Reason for Visit * Reason Comments Procedure Instructions Encounter Details Care Team Description Date Type Department Tamica Forrest RN Procedure Instructions 11/19/2018 Telephone [facility] [address] [place] [address] Social History Date Tobacco Use Types Packs/Day [...] for Transesophageal Echocardiogram with Dr. Torres at [facility] on . Please arrive at 0800 that [...] instructions, please call the EP office at [phone] during regular office hours Saturday through Saturday, 8-4 p Pt instructed via VM. Request a return call verifying receipt. Tamica Forrest, 11/09 1:46 PM documented in this encounter Plan of Treatment Not on filedocumented as of this encounter Visit Diagnoses Not on filedocumented in this encounter
--- OUTSIDE RECORDS SUMMARY | 2019-08-31 23:36 | XMS REPORT | Encounter Summary ---
Author Author [facility] Organization [facility] Address Unknown Phone Unavailable Care Team Providers Care Material Handling Equipment Stevedore Name Role Phone PCP Unavailable Encounter Details Care Team Description Date Type Department Dayton Daugherty MD [address] [place] [address] [phone] 10/27/2018 Documentation [facility] [address] [place] [address] Social History Date Tobacco Use Types Packs/Day [...]
--- OUTSIDE RECORDS SUMMARY | 2019-08-31 23:36 | XMS REPORT | Continuity of Care Document ---
Author Organization Unknown Address Unknown Phone Unavailable Allergies Active Description Code Type Severity Reaction Onset Reported/Identified Relationship to Patient Clinical Status Yes No Known Drug Allergies [id number] Miscellaneous Allergy Moderate N/A Yes No Known [...] ADJ D/O W ANX DEP MOOD 10/17/2011 [facility], LIANET R 309.28 AD ADJ D/O W ANX DEP MOOD 10/17/2011 [facility], LIANET R 309.28 AD ADJ D/O W ANX DEP MOOD 10/17/2011 [facility], LIANET R 309.28 AD ADJ D/O W ANX DEP MOOD 10/17/2011 [facility], LIANET R 309.28 AD ADJ D/O W ANX DEP MOOD 09/22/2015 Robertson, Nia Jeannette I10 Essential (primary) hypertension Sherri, The rese Jeannette 09/22/2015 Sherri, Nia Jeannette I48.91 Unspecified atrial fibrillation Sherri, Ther sai Jeannette 09/22/2015 Robertson, Nia Jeannette N63 Unspecified lump in breast Sherri, Nia E luis 09/22/2015 Robertson, Nia Jeannette Z79.01 [facility] (current) use of anticoagulants Cu sick, Nia Jeannette 09/23/2015 Sherri, Nia Jeannette I10 Essential (primary) hypertension Robertson, The rese Jeannette 09/23/2015 Robertson, Nia Jeannette I48.91 Unspecified atrial fibrillation Robertson, Ther sai Jeannette 09/23/2015 Sherri, Nia Jeannette N63 Unspecified lump in breast Sherri, Nia E luis 09/23/2015 Robertson, Nia Jeannette 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 anticoagulants Cu sick, Nia Jeannette 12/02/2015 Robertson, Nia Jeannette 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 Robertson, Nia Murillo shayy 12/05/2015 Robertson, Nia Jeannette 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 Robertson, Nia Lidia shayy Procedures Code Description [place] [address] KATHY V PSYTX 45/50 MIN 02/06/2012 72691 KATHY V PSYTX 45/50 MIN 03/05/2012 48309 PSYT X PT&/FAMILY 45 MINUTES 07/04/2012 87713 PSYT X PT&/FAMILY 45 MINUTES 08/27/2012 06883 PSYT X PT&/FAMILY 45 MINUTES 12/30/2012 28493 PSYT X PT&/FAMILY 45 MINUTES 01/07/2013 61483 PSYT X PT&/FAMILY 45 MINUTES 01/30/2013 34986 PSYT X PT&/FAMILY 45 MINUTES 02/20/2013 49838 Offi ce or other outpatient visit for the evaluation and management of a new patient, which requires Nia Hopkins 09/22/2015 33994 Offi ce or other outpatient visit for the evaluation and management of a new patient, which requires Robertson, Nia Machado 10/21/2015 75182 Exci tata of cyst, fibroadenoma, or other benign or malignant tumor aberrant breast tissue, duct cati Sherri, [facility] Jeannette 12/02/2015 58653 Exci tata of cyst, fibroadenoma, or other benign or malignant tumor aberrant breast tissue, duct lesi Sherri, [facility] Jeannette 12/30/2015 Results Test Result Range =>HLP [...] Status Pt. Type Provider Facility Loc./Unit Complaint [id number] 10/11/2015 01:52:00 10/11/2015 11:3 5:00 DIS Outpatient [facility]OP[facility] 001 [id number] 12/02/2015 12:47:03 016 23:59:59 CLS Outpatient Nia Hopkins [id number] 02/20/2013 08:01:00 02/20/2013 23:59: 59 CLS Outpatient YUAN LSCS, LIANET Lambert [id number] 01/29/2013 11:00:00 01/29/2013 23:59: 59 CLS Outpatient YUAN LSCSLIANET [id number] 01/06/2013 10:59:00 01/06/2013 23:59: 59 CLS Outpatient YUAN LSCS, LIANET Lambert [id number] 12/26/2012 12:56:00 12/26/2012 23:59: 59 CLS Outpatient YUAN LSCSLIANET [id number] 03/05/2012 11:50:00 03/05/2012 23:59: 59 CLS Outpatient [id number] 02/06/2012 10:55:00 02/06/2012 23:59:5 9 CLS Outpatient [id number] 08/21/2012 10:03:00 Document Registration [id number] 07/04/2012 07:59:00 Document Registration
--- OUTSIDE RECORDS SUMMARY | 2019-08-31 23:36 | XMS REPORT | Encounter Summary ---
Author Author [facility] Organization [facility] Address Unknown Phone Unavailable Care Team Providers Care Ladies Attendant Name Role Phone Yulissa Zapata PCP Reason for Referral * Consultation (Routine) Referred By Contact Referred To Contact Status Reason Specialty Diagnoses / Procedures Kristina Conrad, PRINCIPAL NETWORK ENGINEER [address] [facility] [address] [place] [address] [facility] Cardio Cl [address] [facility] [address] [place] [address] Specialty Services Hematology / Required Cardiology * Diagnostic Imaging (Routine) Referred By Contact Referred To Contact Status Reason Specialty Diagnoses / Procedures Lauro Daugherty MD [address] [facility] [address] [place] [address] [facility] Cv Ultrasound [address] [place] [address] Closed Cardiology Diagnoses Atrial fibrillation, unspecified type (HCC) long term current use of anticoagulant therapy P rocedures Echo Transesophageal with Doppler and Color Flow Reason for Visit * Auth/Cert Referred By Contact Referred To Contact Status Reason Specialty Diagnoses / Procedures Diagnoses Atrial fibrillation, unspecified type (HCC) long-term current use of anticoagulant therapy Atrial fibrillation (HCC) christi A trial fibrillation (HCC) Procedures ECHO TRANSESOPHAGEAL WITH DOPPLER AND COLOR FLOW Encounter Details Care Team Description Date Type Department Lauro Daugherty MD [address] [facility] [address] [place] [address] [phone] Radha Almeida MD [address] [place] [address] [phone] Jeanette Toussaint MD [address] [place] [address] [phone] Ofelia Bonilla MD [address] [facility] [address] [place] [address] [phone] Persistent atrial fibrillation (HCC) (Pr imary Dx); Atrial fibrillation, unspecified type (HCC); long-term current use of anticoagulant therapy 11/20/2018 [facility] Hospit al - Encounter [address] 11/24/2018 [place] [address] Social History Date Tobacco Use Types Packs/Day [...] this encounter Discharge Summaries * Kristina Conrad, PRINCIPAL NETWORK ENGINEER - 11/24/2018 12:34 PM CDT Cardiology Discharge Summary Admitting physician: Ofelia Bonilla MD Date of admission: 11/20/2018 PCP: Yulissa Zapata MD Date of discharge: 11/24/2018 Chief complaint: dyspnea on exertion HOSPITAL COURSE We are discharging Pau Wren from the [facility] today. As you know, she is [...] anticoagulated with warfarin, previously managed by her ball racker in [place], [place]. Plan to transition to [facility] with [facility]. On day of discharge, patient is [...] (HCC) Active Problems: Mitral regurgitation Essential hypertension long term current use of anticoagulant therapy Dilated cardiomyopathy [...] today is 1.8. Patient is transitioning to [facility]. Patient monitors INR with Home monitor, w ill plan for recheck on Saturday11/26/18. -- chest pain coordinator has previously obtained cost of Tikosyn at [facility] in [place], which is $155.99/monthly. Patient is aware of [...] Your Medications These medications were sent to [facility] #[id number] [place], [place] - [address] [facility] [address] carvedilol 25 MG tablet dofetilide 125 MCG capsule warfarin 2.5 MG tablet Condition at discharge: Stable Disposition: home Follow up: Kristyn Basurto PA-C on 12/09/2018 with a check-in time of 11:00 at [facility] Activity limitations: None Diet: Heart [...] do not hesitate to contact us at [phone] should you have any questions. Kristina Conrad [...] 100% fruit juice Whole-wheat bread or an Cymraes muffin. Look for sodium content on Nutrition Facts labels. Low-fat milk or yogurt Unsalted eggs Shredded wheat [place] tortillas Unsalted steamed rice Regular (not instant) [...] vegetables, soups, and fish not labeled as [id number] or reduced so dium Packaged gravies and sauces Olives, pickles, and relish Bottled salad dressings For snacks and desserts Yogurt Unsalted, air-popped popcorn Unsalted nuts or seeds Stay away from: Pies and cakes Packaged dessert mixes Pizza Canned and packaged puddings Pretzels, chips, crackers, and nutsunless the label says unsalted Date Last Reviewed: 08/09/201619995628-6285 [employer]. [address] [place] [address] 7. All rights reserved. This information is not intended as a substitute for pro fessional medical care. Always follow your healthcare professional's instruction s. * Attachments The following attachments cannot be sent through Care Everywhere.* DIET, LOW SALT (2GM) (LAO) * Salt, Tips for Using Less (Cymraes) * Diet, Discharge Instructions for Eating a Low-Salt (Cymraes) documented in this encounter Medications at Time [...] CDTM One time dose of 5 mg [facility] will monitor daily INR and adjust [...] [place] unless re-consulted. * Yuan Burkett Chhaya, HYPERTRICHOLOGIST - 11/23/2018 10:11 AM CDT Cardiology Progress [...] Patient is sitting up in bed in [facility]. She denies dizziness, lightheaded ness, shortness [...] (HCC) Active Problems: Mitral regurgitation Essential hypertension long term current use of anticoagulant therapy Dilated cardiomyopathy [...] INR 2.0-3.0. INR today is 1.7. -- chest pain coordinator has previously obtained cost of Tikosyn at [facility] in [place], which is $155.99/monthly. Patient is aware of [...] times of rest Note by Yuan Burkett, HYPERTRICHOLOGIST 9/15/19 OBJECTIVE: Vitals: BP: (!) 81/54 Pulse: [...] (HCC) Active Problems: Mitral regurgitation Essential hypertension long term current use of anticoagulant therapy Dilated cardiomyopathy [...] (HCC) Active Problems: Mitral regurgitation Essential hypertension long term current use of anticoagulant therapy Dilated cardiomyopathy [...] drug interactions, review labs, and provide discharge [facility] counseling. Relevant clinical data and objective history [...] Almeida MD - 11/20/2018 9:35 AM CDT [facility] History and Physical Date:11/20/2018 [...] w ith warfarin continued. Shelli Billingsley RN, BRACELET FORMER-BC The note below was copied from a [...] remains extremely short of breath consistent with [place] Heart Association class III status. She has [...] Depression DEPRESSIVE DISORDER Essential hypertension ESSENTIAL HYPERTENSION long term current use of anticoagulant therapy LONG-TERM CURRENT USE OF ANTI COAGULANT Past Medical History: Diagnosis Date Atrial fibrillation (HCC) Depression Essential hypertension GERD (gastroesophageal reflux disease) long-term current use of anticoagulant therapy Mitral regurgitation [...] fibrillation, unspecified type (HCC) Yes Essential hypertension long term current use of anticoagulant therapy Non-rheumatic mitral [...] or through an AV node ablate and PICKER BOX OPERATOR-P device. This would hopefully result in improvement [...] verify the c orrect patient, procedure, equipment, research support specialist and site/side marked as requ ired. Sedation: [...] Saturday (11/21/18) afternoon, please send script to [facility] pharmacy to be filled by the Meds to Beds program. Also, CC spoke with patient's pharmacy, [facility] in [place], [place] Phone: . They have both the [...] okay" and proceeded to then com aminae [id number] with the previous ECG from the chart [...] from 250mcg to 125mcg. Shelli Billingsley RN, BRACELET FORMER-BC * Shelli Billingsley APRN - 11/20/2018 1:34 PM CDT Initial QTc is 360ms in lead II on EKG 11/20, per Dr. Almeida. Shelli cox RN, BRACELET FORMER-BC documented in this encounter Miscellaneous Notes * Provider Clarification Response - Jeanette Toussaint MD - 12/08/2018 1:15 PM CDT [facility] Query Respons e Note PATIENT: PAU WREN : 1950 ADMIT DATE: 11/20/2018 7:23 AM DISCH DATE: 11/24/2018 2:22 PM RESPONDING PROVIDER #: [id number] RESPONSE TEXT: The patient has paroxysmal atrial [...] bridge) Consults needed and/or active: Consults Needed: Senior Scrum Master Disciplines Present: Senior Scrum Master, Nursing Administration, Pharmacy, Primary RN, Social Work, Engine Lathe Operator Carmela Crowder GARAGE HAND Senior Scrum Master Ext. [phone] 11/24/18 * Plan of Care - Jeannette [...] Interventions General Discharge Note CC contacted [facility] [phone] patient's pharmacy for acquirring Tikosyn 125 mcg. Pharmacist Lauro has 60 capsules available for this dose. Patient will dis charge possibly Saturday and pharmacy will be open from 11:00 to 18:00pm. CC notif ied Tomasa ANDREA patient's nurse. Carmela Crowder RN BSN Senior Scrum Master Ext. [phone] 11/21/18 * Multidisciplinary Discharge Rounds Note - [...] mg) Consults needed and/or active: Consults Needed: Senior Scrum Master Disciplines Present: Senior Scrum Master, Nursing Administration, Pharmacy, Primary RN, Social Work, Engine Lathe Operator Carmela Crowder RN BSN Senior Scrum Master Ext. [phone] 11/21/18 * Multidisciplinary Discharge Rounds Note - [...] mg) Consults needed and/or active: Disciplines Present: Senior Scrum Master, Nursing Administration, Pharmacy, Primary RN, Social Work, Engine Lathe Operator Carmela Crowder RN BSN Senior Scrum Master Ext. [phone] 11/21/18 * End of Shift Note - [...] times rate going up to 120's. CC PRINCIPAL NETWORK ENGINEER was notified of EKG needing to be [...] to afford medications: yes Patient's Preferred Pharmacy: [facility] #[id number] - [place], [place] - [address] [facility] [address] [facility] [address] [facility] [facility] [address] PCP: Yulissa Zapata MD [phone] Face Sheet Verified: Yes Referral to see [...] Appropriate, Speech: Normal, Orientation Level: Intact Patient Log Raft Worker Name: Julian Wren, , Patient Log Raft Worker Patient's Living Arrangement: House Patients support system has been Support System: Spouse/significant other, Adarsh collazo Pt has Payor: MEDICARE / Plan: MEDICARE PART A B / Product Type: Medicare / Legal Information: Advance Directives: Living will, Power of Adobe Cq Developer for health care, Legal Documentation: Patient refused [...] 9:30 AM CDT unspecified ty pe (HCC) long term current use of anticoagulant therapy HGB K [...] 176 TRACEMASTER Specimen Narrative Performed At TRACEMAST[facility] Test Date: 2018-11-24 Pat Name: PAU WREN Department: HN6 Room: [facility] Gender: Female 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: 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 : 1950 Requested By: LAURO DAUGHERTY Order Number: [id number] Jessica MD: Aime Steiner Measurements Intervals [place] Rate: 56 P: 31 [place]: 176 QRS: 7 QRSD: 100 T: 71 QT: 460 QTc: 444 Interpretive Statements SINUS RHYTHM T wave inversion anteriorly, consider i schemia Electronically Signed On 11-27-2018 11:1 3:43 CDT by Aime Steiner Procedure Note Interface, External Ris In - 11/27/2018 11:13 AM CDT [facility] Test Date: 2018-11-24 Pat Name: PAU WREN Department: HN6 Room: H626 Gender: Female 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: [id number] : 1950 Requested By: LAURO DAUGHERTY Order Number: [id number] Reading MD: Aime Steiner Measurements Intervals [place] Rate: 56 P: 31 NJ: 176 QRS: 7 QRSD: 100 T: 71 [...] PAU WREN Date: 11/24/2018 09:21 Chart #: [id number] : 1950 Gender F Location: [facility] Sono: ab ler : Age: 68 Room #: H62 6 Referring: YUAN BURKETT Fellow: Indication:Atrial fibrillation I480 Procedure: The patient was kept PRINCIPAL NETWORK ENGINEER O after midnight. Informed consent was obtained. [...] PAU WREN Date: 11/24/2018 09:21 Chart #: [id number] : 1950 Gender F Location: [facility] Sono: mcamadihar : Age: 68 Room #: [...] verify the correct patient, procedure, equipme nt, research support specialist and site/side marked as required. Sedation: Patient [...] within the time period is included. Pathologist [facility] Unfractionated 0.62Comment: Therapeutic range 0.30 - 0.70 IU/ mL [facility] Heparin Anti may vary based on physician Hospital Lab Factor Xa Assay orders or order set. Specimen Blood Performing Organization Address [facility] [place] [address] LABORATORIES [facility] [address] [place] [address] * Platelet (11/24/2018 7:16 AM CDT) Only the most recent of 2 results within the time period is included. [facility] Platelet Count 75 (L) 140 - 400 TH/uL [facility] Specimen Blood Performing Organization Address [facility] Ph one Number [address] [address] LABORATORIES [facility] [address] [place] [address] * Magnesium (11/24/2018 7:16 AM CDT) Only the most recent of 5 results within the time period is included. [facility] Magnesium 2.1 1.4 - 2.7 mg/dL [facility] Specimen Blood Performing Organization Address City/[facility] Ph one Number [facility] [address] [place] [address] LABORATORIES [facility] [address] [place] [address] * Prothrombin Time/INR (11/24/2018 7:16 AM CDT) Only the most recent of 5 results within the time period is included. Protime 20.2 (H) 11.4 - 15.0 sec [facility] INR 1.8 (H) 0.8 - 1.2 [facility] Specimen Blood Performing Organization Address [facility] one Number [facility] [address] [place] [address] LABORATORIES [facility] [address] [place] [address] * Basic Metabolic Panel (11/24/2018 7:16 AM CDT) Only the most recent of 4 results within the time period is included. Sodium 138 133 - 147 MEQ/L [facility] Potassium 3.9 3.5 - 5.3 MEQ/L [facility] Chloride 100 96 - 112 MEQ/L [facility] Carbon Dioxide 25 20 - 32 MEQ/L [facility] Anion Gap 13 5 - 17 [facility] Calcium 9.4 8.4 - 10.5 mg/dL [facility] Glucose 117 (H) 70 - 100 mg/dL [facility] Blood Urea 24 7 - 26 mg/dL [facility] Lab Creatinine 1.2 (H) 0.4 - 1.1 mg/dL [facility] eGFR Female AA 53 (L) 60 - 200 [facility] mL/min/1.73sq [facility] Lab eGFR Female 44 (L) 60 - 200 [facility] Non-AA mL/min/1.73sq [facility] Lab Specimen Blood Performing Organization Address City/[facility] Ph one Number [address] [place] [address] LABORATORIES [facility] [address] [place] [address] * Triiodothyronine (11/21/2018 6:40 AM CDT) Triiodothyronin 0.9 (L) 1.0 - 1.7 ng/mL [facility] Lab Specimen Blood Performing Organization Address [facility] Ph one Number [facility] [address] [place] [address] LABORATORIES [facility] [address] [place] [address] * T4 Free (11/21/2018 6:40 AM CDT) T4 Free 0.9 0.8 - 2.2 ng/dL [facility] Specimen Blood Performing Organization Address [facility] Ph one Number [facility] [address] [place] [address] LABORATORIES [facility] [address] [place] [address] * Thyroid [place] (11/21/2018 6:40 AM CDT) Thyroid 0.13 (L) 0.47 - 4.68 uIU/mL [facility] Hormone Specimen Blood Performing Organization Address [facility] Ph one Number [address] [address] LABORATORIES [facility] [address] [place] [address] * Echo Transesophageal with Doppler and Color [...] PAU WREN Date: 11/20/2018 09:10 Chart #: [id number] : 1950 Gender F Location: [facility] OP Sono: ab ler : Age: 68 Room #: OP Referring: LAURO DAUGHERTY MD Fellow: Indication:long term current use o f anticoagulant therapy; Atrial fibrillation, unspecified type (HCC), Atrial fibr illation I480 Procedure: The patient was kept PRINCIPAL NETWORK ENGINEER O after midnight. Informed consent was obtained. [...] PAU WREN Date: 11/20/2018 09:10 Chart #: [id number] : 1950 Gender F Location: [facility] OP Sono: mcayler : Age: 68 Room #: OP Referring: LAURO DAUGHERTY MD Fellow: Indication:long term current use of anticoagulant therapy; Atrial fibrillation, [...] seen. No previous study available for comparison. Oeflia Bonilla M.D. (Electronically Signed) Final Date: 20 November 2018 12:52 Performing Organization Address City/State/Zipcode Ph one Number [facility] * HGB/K POC (11/20/2018 8:32 AM CDT) Hemoglobin 12.4 12.0 - 15.0 g/dL [facility] Potassium 4.2 3.5 - 5.3 MEQ/L [facility] LABORATORIES Specimen Performing Organization Address City/[facility] Ph one Number [facility] [address] [place] [address] LABORATORIES * Potassium (11/20/2018 8:27 AM CDT) Potassium 4.4 3.5 - 5.3 MEQ/L [facility] Specimen Blood Performing Organization Address City/[facility] Ph one Number [facility] [address] [place] [address] LABORATORIES [facility] [address] [place] [address] * Creatinine (11/20/2018 8:27 AM CDT) Creatinine 1.2 (H) 0.4 - 1.1 mg/dL [facility] eGFR Female AA 53 (L) 60 - 200 [facility] mL/min/1.73sq [facility] Lab eGFR Female 44 (L) 60 - 200 [facility] Non-AA mL/min/1.73sq [facility] Lab Specimen Blood Performing Organization Address City/[facility] Ph one Number [facility] [address] [place] [address] LABORATORIES [facility] [address] [place] [address] documented in this encounter Visit Diagnoses Diagnosis Atrial fibrillation, unspecified type ( HCC) long-term current use of anticoagulant therapy Persistent atrial [...] mild pain (pain score 1-3), fever, Starting [facility] 11/20/18 at 1046, Do not exceed 4 GM/DAY of acetaminophen. If 6 5 or older do not exceed 3 GM/DAY. If chronic alcoholic do not exceed 2 GM/DAY., aluminum-magnesium hydroxide-simethicon e (MAALOX PLUS) 400-400-40 mg/5 mL suspension 15 mL 15 mL, Oral, Every 4 hours PRN, indigestion, Starting [facility] 11/20/18 at 1046, Avoid if estimated [...] 2 times daily PRN, stool softening, Starting [facility] 11/20/18 at 1046 , DO NOT [...] As needed, per heparin infusion nomogram, Starting [place] 11/23/18 at 1419, Note: See heparin infusion order for instructions on boluses. Full bolus (80 units/kg): 7,400 units Half bolus (40 units/kg): 3,700 units, 11/23/2018 4:41 PM CDT 7,400 Units heparin (porcine) 1,000 unit/mL Given injection 7,400 Units 7,400 Units (rounded from 7,416 Units = 80 Units/kg 92.7 kg), Intravenous, Once, [place] 9 at 1445, For 1 dose, Initial Bolus = 80 units/kg, 11/23/2018 5:03 PM CDT 18 Units/kg/hr 16.6 mL/hr heparin 100 units/mL in dextrose (D5W) New Bag 5% 250 mL infusion 18 Units/kg/hr 92.7 kg (16.686 mL/hr, rounded to 16.6 mL/hr), Intravenous, at 16.6 mL/hr, Continuous, Starting [place] 11/23/18 at 1445, For 6 hours, MAXIMUM [...] tachycardia), Starting [facility] 11/20/18 at 1046, Notify ball racker for non-sustained VT > 3 beats on [...] 2 g, Intravenous, at 25 mL/hr, Once, [facility] 11/23/18 at 1030, For 1 dose magnesium [...] 17 g, Oral, Daily PRN, constipation, Starting [facility] 11/20/18 at 1046, Hold thes e medications if patient has had loose stool or diarrhea within previous 24 hours., potassium bicarb-citric acid (EFFER-K) effervescent tablet 20 mEq 20 mEq, Oral, As needed, aggressive electrolyte replacement, Starting [facility] 11/20/18 at 1046, Administer if unable [...] 10 mEq, Oral, Daily, First dose on [facility] 11/20/18 at 1015, DO NOT CRUSH OR CHEW., 10 mEq Given 11/23/2018 10:01 AM CDT 10 mEq Given 11/22/2018 8:22 AM CDT 11/22/2018 9:40 AM CDT 20 mEq potassium chloride (KLOR-CON) CR tablet Given 20 mEq 20 mEq, Oral, As needed, aggressive electrolyte replacement, Starting [facility] 11/20/18 at 1046, Replace in addition [...]
--- OUTSIDE RECORDS SUMMARY | 2019-08-31 23:36 | XMS REPORT | Encounter Summary ---
Author Author [facility] Organization [facility] Address Unknown Phone Unavailable Care Team Providers Care Neurological Surgeon Name Role Phone PCP Unavailable Encounter Details Care Team Description Date Type Department Dayton Daugherty MD [address] [place], [place] [id number] 10/20/2018 Documentation [facility] [address] [place] [address] Social History Date Tobacco Use Types Packs/Day [...] with HR from 98 to 152 bpm. ([facility] ) Narrative Performed At This result has [...]
--- OUTSIDE RECORDS SUMMARY | 2019-08-31 23:36 | XMS REPORT | Encounter Summary ---
Author Author [facility] Organization [facility] Address Unknown Phone Unavailable Care Team Providers Care Toe Puller Name Role Phone PCP Unavailable Encounter Details Care Team Description Date Type Department Lorena Curry RN 10/29/2018 Abstract [facility] [address] [facility] [address] [place] [address] Social History Date Tobacco Use Types Packs/Day [...]
--- OUTSIDE RECORDS SUMMARY | 2019-08-31 23:36 | XMS REPORT | Encounter Summary ---
Author Author [facility] Organization [facility] Address Unknown Phone Unavailable Care Team Providers Care Cigarette Examiner Name Role Phone PCP Unavailable Reason for Visit * Reason Comments Atrial fibrillation Encounter Details Care Team Description Date Type Department Hammad Joy RN Atrial fibrillation, unspecified type (H CC) (Primary Dx) 11/03/2018 Nurse Only [facility] [address] [facility] [address] [place] [address] Social History Date Tobacco Use Types Packs/Day [...]
--- OUTSIDE RECORDS SUMMARY | 2019-08-31 23:36 | XMS REPORT | Encounter Summary ---
Author Author [facility] Organization [facility] Address Unknown Phone Unavailable Care Team Providers Care Soils Engineer Name Role Phone PCP Unavailable Reason for Visit * Reason Comments Follow-up Encounter Details Care Team Description Date Type Department Anastasia Olmstead LPN Follow-up 11/12/2018 Telephone [facility] [address] [place] [address] Social History Date Tobacco Use Types Packs/Day [...] to do the AIDEN on 11/19 at [facility]. She does have an opening on 11/20 at [facility] location - AIDEN to be done as [...]
--- OUTSIDE RECORDS SUMMARY | 2019-08-31 23:36 | XMS REPORT | Encounter Summary ---
Author Author [facility] Organization [facility] Address Unknown Phone Unavailable Care Team Providers Care Design Quality Engineer Name Role Phone Yulissa Zapata PCP Encounter Details Care Team Description Date Type Department Tamica Correa RN 11/12/2018 Orders for [address] [address] Social History Date Tobacco Use Types Packs/Day [...]
--- OUTSIDE RECORDS SUMMARY | 2019-08-31 23:36 | XMS REPORT | Encounter Summary ---
Author Author [facility] Organization [facility] Address Unknown Phone Unavailable Care Team Providers Care Director Specialty Name Role Phone PCP Unavailable Encounter Details Care Team Description Date Type Department Anastasia Olmstead LPN 11/12/2018 Telephone [facility] [address] [place] [address] Social History Date Tobacco Use Types Packs/Day [...]
--- OUTSIDE RECORDS SUMMARY | 2019-08-31 23:36 | XMS REPORT | Encounter Summary ---
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 Plan discussed with anesthesiologist personal assistant and resident. Post-operative analgesia: routine analgesia [...]
[2019-09-01] VITALS (18 sets, daily range): BP systolic 125–173; BP diastolic 68–100
--- NOTE | 2019-09-01 00:04 | NUR ---
This RN is completing the patient's admission assessment at this time. There is an order for dysphagia screening and when this RN asked the patient if she had a new onset of difficulty swallowing the patient stated she has had difficulty swallowing for some time prior to her stroke-like symptoms and had an EGD 08/28/19 due to this difficulty. Patient stated she does not drink water before bed because she "cannot keep it down". This RN and patient discussed the dysphagia screening, and the patient agreed to not doing dysphagia screening at this time. This RN did not complete the dysphagia screening due to aspiration risk of patient being in bed and wishing to go to sleep at this time. This RN will keep patient NPO until dysphagia screening is complete.
[2019-09-01] MEDS ORDERED: ZOLPIDEM 5 MG (AMBIEN) TAB PO PRN (01:15)
[2019-09-01] MEDS ORDERED: RT-ALBUTEROL/IPRATROPIUM 3 ML (DUONEB) VIAL INH PRN (01:30)
[2019-09-01 03:47] LABS: BASOPHILS % (AUTO) 1 % (0-10); EOSINOPHILS % (AUTO) 0 % (0-10); HEMATOCRIT 38 % (35-52); HEMOGLOBIN 12.9 G/DL (11.5-16.0); LYMPHOCYTES # (AUTO) 0.7 X 10^3 (1.0-4.0); LYMPHOCYTES % (AUTO) 13 % (12-44); MEAN CORPUSCULAR HEMOGLOBIN 33 PG (25-34); MEAN CORPUSCULAR HGB CONC 34 G/DL (32-36); MEAN CORPUSCULAR VOLUME 99 FL (80-99); MEAN PLATELET VOLUME 10.3 FL (7.4-10.4); MONOCYTES # (AUTO) 0.1 X 10^3 (0.0-1.0); MONOCYTES % (AUTO) 2 % (0-12); NEUTROPHILS # (AUTO) 4.9 X 10^3 (1.8-7.8); NEUTROPHILS % (AUTO) 85 % (42-75); PLATELET COUNT 185 10^3/uL (130-400); RED CELL DISTRIBUTION WIDTH 12.9 % (10.0-14.5); WHITE BLOOD COUNT 5.8 10^3/uL (4.3-11.0)
[2019-09-01 04:08] LABS: ALBUMIN 4.3 GM/DL (3.2-4.5); CHLORIDE 99 MMOL/L (98-107); POTASSIUM 3.7 MMOL/L (3.6-5.0); SODIUM 140 MMOL/L (135-145)
[2019-09-01 04:09] LABS: CALCIUM 9.2 MG/DL (8.5-10.1)
[2019-09-01 04:10] LABS: TOTAL PROTEIN 7.5 GM/DL (6.4-8.2); TRIGLYCERIDES 87 MG/DL (<150); VLDL CHOLESTEROL 17 MG/DL (5-40)
[2019-09-01 04:11] LABS: GLUCOSE 176 MG/DL (70-105)
[2019-09-01 04:12] LABS: BILIRUBIN,TOTAL 0.5 MG/DL (0.1-1.0); CARBON DIOXIDE 24 MMOL/L (21-32)
[2019-09-01 04:14] LABS: ALKALINE PHOSPHATASE 63 U/L (40-136); CREATININE SERUM 1.23 MG/DL (0.60-1.30); GFR ESTIMATED 43
[2019-09-01 04:15] LABS: BUN/CREATININE RATIO 13; CHOLESTEROL 227 MG/DL (< 200)
[2019-09-01 04:16] LABS: HDL CHOLESTEROL 78 MG/DL (40-60)
[2019-09-01 04:17] LABS: ALANINE AMINOTRANSFERASE 31 U/L (0-55); MAGNESIUM 1.6 MG/DL (1.6-2.4)
[2019-09-01] MEDS: MAGNESIUM 1 GM/100 ML IVPB 100 ML IV SCH ×2 (04:55→06:00)
[2019-09-01] MEDS ORDERED: POTASSIUM CL 10MEQ/50ML IVPB 50 ML IV SCH (06:00)
[2019-09-01] MEDS ORDERED: KCL 20 MEQ TAB (K-DUR) PO SCH (06:00)
[2019-09-01] MEDS ORDERED: MAGNESIUM 1 GM/100 ML IVPB 100 ML IV SCH (06:00)
[2019-09-01] MEDS ORDERED: warFARin 5 MG (COUMADIN) TAB PO NR (08:00)
--- NOTE | 2019-09-01 08:12 | Diagnostic Imaging Report ---
INDICATION: Dizziness, history of atrial fibrillation. Post recent EGD. TECHNIQUE: Single view chest 10:11 PM. CORRELATION STUDY: 08/31/2019 FINDINGS: Heart size remains enlarged and there is presence of pulmonary vascular congestion. Mild prominent interstitial markings are noted. No consolidating infiltrate. Minimal basilar areas of atelectasis suggested. IMPRESSION: 1. Cardiac enlargement with component of pulmonary vascular congestion likely underlying interstitial edema. Dictated by: Dictated on workstation # [id number]
--- NOTE | 2019-09-01 08:16 | Pulmonary Consultation ---
History of Present Illness History of Present Illness Date Seen by Provider: Sep 01, 2019 Time Seen by Provider: 08:15 Date of Admission Allergies and Home Medications Allergies Coded Allergies: No Known Drug Allergies (Unverified , 03/07/18) Home Medications Biotin 1,000 Mcg Tablet, 1,000 MCG PO DAILY, (Reported) Carvedilol 12.5 Mg Tablet, 12.5 MG PO BID, (Reported) Dofetilide 125 Mcg Capsule, 125 MCG PO BID, (Reported) Esomeprazole Magnesium 40 Mg Capsule.dr, 40 MG PO DAILY, (Reported) Furosemide 40 Mg Tablet, 40 MG PO DAILY, (Reported) Paroxetine HCl 10 Mg Tablet, 10 MG PO DAILY, (Reported) Potassium Chloride 10 Meq Tablet.er, 10 MEQ PO DAILY, (Reported) Warfarin Sodium 2.5 Mg Tablet, 2.5 MG PO MoWeFr, (Reported) Warfarin Sodium 2.5 Mg Tablet, 1.25 MG PO SuTuThSa, (Reported) take 1/2 of 2.5mg tab Past Euinffb-Bistyw-Vmvuoh Hx Past Med/Social Hx: Reviewed and Corrections made Patient Social History Alcohol Use: Regular Use (DRINKS A COUPLE OF GLASSES OF WINE EVERY NIGHT) Number of Drinks Today: 2 Alcohol Beverage of Choice: Wine Recreational Drug Use: No Smoking Status: Never a Smoker 2nd Hand Smoke Exposure: No Recent Foreign Travel: No Contact w/Someone Who Travel: No Recent Infectious Disease Expo: No Recent Hopitalizations: No Physical Abuse: No Sexual Abuse: No Mistreated: No Fear: No Immunizations Up To Date Tetanus Booster (TDap): Less than 5yrs PED Vaccines UTD: No Date of Pneumonia Vaccine: Jan 25, 2017 Date of Influenza Vaccine: Dec 16, 2018 Seasonal Allergies Seasonal Allergies: No Past Medical History Surgeries: Yes (BUNIONECTOMY WITH PIN PLACED, R RCR; EGD 08/28/19) Breast, Gallbladder, Hysterectomy, Orthopedic, Tonsillectomy Respiratory: No Currently Using CPAP: No Cardiac: Yes Atrial Fibrillation, Hypertension Neurological: No 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, 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 Sexually Transmitted Disease: No HIV/AIDS: No Genitourinary: No Gastrointestinal: Yes Gastroesophageal Reflux, Chronic Diarrhea Musculoskeletal: Yes (RIGHT CARPAL TUNNEL RELEASE) Endocrine: No HEENT: Yes (READING GLASSES) Loss of Vision: Bilateral Hearing Impairment: Denies Cancer: Yes Uterine Did You Recieve Any Treatments: Yes What Type of Treatment Did You: Chemotherapy, Surgical Intervention Psychosocial: Yes Anxiety, Depression Integumentary: No Blood Disorders: No Adverse Reaction/Blood Tranf: No (N/A) Family Medical History Alcoholism G8 BROTHER G8 BROTHER Cancer of mouth G8 BROTHER G8 BROTHER Cardiovascular disease Cataracts G8 BROTHER G8 BROTHER G8 SISTER G8 SISTER G8 SISTER FH: breast cancer G8 SISTER FH: lung cancer G8 BROTHER FH: pancreatic cancer G8 SISTER Headache disorder G8 BROTHER G8 BROTHER Hypercholesterolemia Hypertension 19 MOTHER G8 BROTHER G8 BROTHER G8 SISTER G8 SISTER G8 SISTER Myocardial infarction 19 FATHER G8 BROTHER G8 BROTHER Thyroid disease G8 SISTER No Family History of: AIDS Abdominal aortic aneurysm [place]'s disease Alzheimer's disease Aphasia Arthritis Asthma Colon cancer Completed stroke Congenital disease Congenital heart disease Coronary thrombosis Cystic fibrosis Deafness or hearing loss Dementia Diabetes mellitus Drug abuse Dysphasia Fibrocystic disease of breast Gastroenteritis Glaucoma Infertility Kidney disease Neoplasm Not obtainable due to adoption Osteoporosis Parkinson's disease Prostate cancer Psychosocial problem Respiratory disorder Seizure disorder Severe allergy Tuberculosis Visual disorder Review of Systems Time Seen by Provider: 08:15 Sepsis Event Evaluation Height, Weight, BMI Height: 5'5.00" Weight: 213lbs. 0.0oz. 96.134956ie; 34.00 BMI Method:Stated Exam Exam Vital Signs Date Time Temp Pulse Resp B/P (MAP) Pulse Ox O2 Delivery O2 Flow Rate FiO2 09/01/19 07:00 86 09/01/19 06:00 80 20 146/90 (108) 91 Room Air 09/01/19 05:00 76 20 160/99 (119) 95 Room Air 09/01/19 04:00 76 15 149/87 (107) 91 Room Air 09/01/19 04:00 Room Air 09/01/19 03:59 36.8 09/01/19 03:00 73 16 149/86 (107) 94 Room Air 09/01/19 02:00 71 22 146/82 (103) 93 Room Air 09/01/19 01:12 74 95 21 09/01/19 01:00 77 09/01/19 01:00 77 20 161/90 (113) 94 Room Air 09/01/19 00:58 36.6 09/01/19 00:45 76 19 156/86 (109) 97 Room Air 09/01/19 00:30 78 15 164/98 (120) 93 Room Air 09/01/19 00:15 74 163/98 (119) 98 Room Air 09/01/19 00:05 77 09/01/19 00:04 74 24 155/92 95 09/01/19 00:04 37.4 74 24 155/92 (113) 95 Room Air 09/01/19 00:04 97 Room Air 08/31/19 23:55 37.1 69 18 136/81 (136) 97 Nasal Cannula 1.50 08/31/19 22:06 97 Nasal Cannula 1.50 08/31/19 21:44 Nasal Cannula 08/31/19 19:40 37.1 70 17 196/106 (136) Room Air I & O 09/01/19 07:00 Intake Total 1200 ml Output Total 4425 ml Balance -3225 ml Height & Weight Height: 5'5.00" Weight: 213lbs. 0.0oz. 96.478574dh; 34.00 BMI Method:Stated Capillary Refill: Less Than 3 Seconds Peripheral Pulses: 2+ Dorsalis Pedis (R), 2+ Left Dors-Pedis (L), 2+ Radial Pulses (R), 2+ Radial Pulses (L) Gastrointestinal: non tender, soft Results Lab Laboratory Tests 08/31/19 19:42 09/01/19 03:12 SHANNAN KEY DO Sep 01, 2019 08:15
--- NOTE | 2019-09-01 08:41 | Diagnostic Imaging Report ---
INDICATION: Vision changes with stroke symptoms. Hypertensive emergency. Hypoxia. TECHNIQUE: Single view chest 3:36 AM. CORRELATION STUDY: 08/31/2019 FINDINGS: Stable cardiac enlargement. Vasculature is improved at follow-up and appears less congested. Improvement in aeration to the lung quintero with the previously noted interstitial changes diminished. No consolidating infiltrate. IMPRESSION: 1. Improvement in the appearance of the chest. Overall decrease in severity of pulmonary vascular congestion and edema from prior. Dictated by: Dictated on workstation # [id number]
[2019-09-01] MEDS ORDERED: CARVEDILOL 12.5 MG (COREG) TABLET PO SCH (09:00)
[2019-09-01] MEDS ORDERED: DOFETILIDE 125 MCG (TIKOSYN) CAPSULE PO SCH (09:00)
[2019-09-01] MEDS ORDERED: ASPIRIN E.C. 81 MG (ECOTRIN) TAB PO ONE (09:00)
[2019-09-01] MEDS ORDERED: ACETAMINOPHEN 325 MG TABLET PO PRN (10:05)
--- NOTE | 2019-09-01 10:24 | Occupational Therapy Eval ---
OT Evaluation-General/PLF Medical Diagnosis Admission Date Aug 31, 2019 at 22:20 Medical Diagnosis: stroke symptoms Onset Date: Aug 31, 2019 Therapy Diagnosis Therapy Diagnosis: impaired ADLs Height/Weight Height (Feet): 5 Height (Inches): 5.00 Weight (Pounds): 213 Weight (Ounces): 0.0 Precautions Precautions/Isolations: Standard Precautions Referral Physician: Ching Referral Reason: Evaluation/Treatment Medical History Pertinent Medical History: Atrial Fib, CVA, HTN Additional Medical History uterine cancer with chemotherapy/surgical intervention, R CTR, foot surgery, R RCR Current History ED secondary to decreased vision L eye/headache Reviewed History: Yes Social History Current Living Status: Spouse ADL-Prior Level of Function SCALE: Activities may be completed with or without assistive devices. 7-Hgltosqgis-lgactfe completes the activity by him/herself with no assistance from a helper. 5-Set-up or Clean-up Assistance-helper sets up or cleans up; patient completes activity. [place] assists only prior to or following the activity. 4-Supervision or Touching Assistance-helper provides verbal cues and/or touching/steadying and/or contact guard assistance as patient completes activity. Assistance may be provided throughout the activity or intermittently. 3-Partial/Moderate Assistance-helper does LESS THAN HALF the effort. [place]hel lifts, holds or supports trunk or limbs, but provides less than half the effort. 2-Substantial/Maximal Assistance-helper does MORE THAN HALF the effort. [place] lifts or holds trunk or limbs and provides more than half the effort. 0-Hxicvvskh-jlyemw does ALL the effort. Patient does none of the effort to complete the activity. Or, the assistance of 2 or more helpers is required for the patient to complete the activity. If activity was not attempted, code reason: 7-Patient Refused. 9-Not Applicable-not attempted and the patient did not perform the activity before the current illness, exacerbation or injury. 10-Not Attempted due to Environmental Limitations-(lack of equipment, weather restraints, etc.). 88-Not Attempted due to Medical Conditions or Safety Concerns. ADL PLOF Comments Pt reports being independent with all ADLs and functional mobility at PLOF. Her assists with cooking/cleaning/laundry as needed but she is able to do all if needed. She is independent with functional mobility without AD. She has a walkin shower with a shower bench and a tub/shower, she primarily uses the walkin. 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 Agreeable to OT evaluation at this time. Mental Status/Objective Patient Orientation: Person, Place, Time, Situation Current Glasses/Contacts: Yes (reading) Hearing Aids: No Dentures/Partials: No Hand Dominance: Right Upper Extremity ROM WFL, BUE shoulder flexion to approx 150 degrees Upper Extremity Coordination intact thumb opposition to each finger Upper Extremity Sensation pt denies tingling/numbness in BUE/BLEs Upper Extremity Strength Grossly 4+/5 MMT ADL-Treatment Eating (QC): 6 (pt reports no issues with eating at this time) On/Off Footwear (QC): 6 (Pt able to don/doff socks at EOB) Other Treatments Pt laying in bed, agreeable to OT evaluation. OT educated pt on purpose and benefits of OT, she verbalized understanding. Pt provided information about PLOF and home set up, and participated in UE screen. Pt transferred supine to sit IND, then doffed/donned BLE socks without difficulty, no LOB noted. Pt then returned to supine IND. Pt reports she sees no issues with returning home IND at d/c. OT educated pt on taking rest breaks as needed at home and energy conservation techniques, she verbalized understanding. Pt reports being at her PLOF and she has no concerns with returning home. Post OT session, pt laying in bed, call light in reach and all needs met. Education OT Patient Education: Correct positioning, Energy conservation, Modified ADL techniques, Progress toward Goal/Update tx plan, Purpose of tx/functional activities, Transfer techniques Teaching Recipient: Patient Teaching Methods: Discussion Response to Teaching: Verbalize Understanding OT Autotransfusionist Goals Correction Goals 1=Demonstrate adherence to instructed precautions during ADL tasks. 2=Patient will verbalize/demonstrate understanding of assistive devices/modifications for ADL. 3=Patient will improve strength/tolerance for activity to enable patient to perform ADL's. OT Education/Plan Problem List/Assessment Assessment: No Skilled OT Needs ID'd Pt demo'd independence with donning/doffing footwear during tx, and she reports being at her PLOF/ no concerns with returning home. No skilled OT services are indicated at this time due to pt reporting she is at her PLOF. Discharge Recommendations Plan/Recommendations: Discontinue OT Therapy Discharge Recommendati: Home & Family Treatment Plan/Plan of Care Treatment,Training & Education: Yes Patient would benefit from OT for education, treatment and training to promote independence in ADL's, mobility, safety and/or upper extremity function for ADL's. Plan of Care: ADL Retraining, Functional Mobility, UE Funct Exercise/Act Treatment Duration: Sep 01, 2019 Frequency: 1 time per week (eval only) Time/GCodes Start Time: 10:00 Stop Time: 10:14 Total Time Billed (hr/min): 14 Billed Treatment Time 1, KIT ACOSTA OT Sep 01, 2019 10:24
--- NOTE | 2019-09-01 10:47 | Diagnostic Imaging Report ---
PROCEDURE: US carotid duplex, bilateral. TECHNIQUE: Multiple Real-time grayscale images were obtained over the carotid arteries in various projections bilaterally. Additional spectral analysis and color Doppler duplex images were also obtained. INDICATION: Vision changes, dizziness as well as left hand numbness. FINDINGS: No significant plaquing is identified in either carotid system. The velocities are normal bilaterally. No velocity elevation or stenosis is identified. Both vertebral arteries show antegrade flow. IMPRESSION: No evidence of a hemodynamically significant stenosis. MEASUREMENTS: Parameters based on the consensus panel Bennett-Scale and Doppler ultrasound criteria published January 2003, Radiology, Volume 229. DOPPLER (peak systolic velocity M/S Right Left CCA .79 .65 ICA Proximal .56 .32 ICA Mid .45 .64 ICA Distal .77 .81 RATIO .97 1.24 ECA .87 .92 VERT .41 .53 Dictated by: Dictated on workstation # [id number]
[2019-09-01] MEDS ORDERED: GADOBUTROL 10 MMOL/10 ML (GADAVIST) VIAL IV ONE (11:00)
[2019-09-01] MEDS ORDERED: ENOXAPARIN 100 MG/1 ML (LOVENOX) SYR SC SCH (11:00)
--- NOTE | 2019-09-01 11:54 | Diagnostic Imaging Report ---
PROCEDURE: MR imaging of the brain with and without contrast. TECHNIQUE: Multiplanar, multisequence MR imaging of the brain was performed with and without contrast. INDICATION: Possible stroke. The patient did have visual changes. CT angiogram of the brain demonstrated questionable high-grade stenosis in the right posterior cerebral artery. Correlation is made with CT angiogram of the head and neck performed 1 day earlier. No prior MRI brain studies are available for comparison. On diffusion-weighted images demonstrate an area of diffusion restriction in the right occipital lobe consistent with acute/subacute infarct. No other areas of diffusion restriction are identified. There is an area of encephalomalacia right posterior parietal occipital lobe consistent with prior infarct. There are some mild periventricular white matter changes noted. No midline shift is detected. No acute intra-axial or extra-axial hemorrhage is detected. Corpus callosum is unremarkable. Sella and parasellar structures are unremarkable. No abnormal enhancement is seen following contrast administration. The normal expected flow-voids within the carotid siphons are seen. IMPRESSION: Findings consistent with acute/subacute infarct right occipital lobe. No other significant abnormality is detected. No acute intracranial hemorrhage is detected. Dictated by: Dictated on workstation # [id number]
[2019-09-01] MEDS ORDERED: ENOX100D4 SC (13:21)
[2019-09-01] MEDS ORDERED: ASPI-999 PO (13:21)
[2019-09-01] MEDS ORDERED: ATOR80TA76 PO (13:21)
[2019-09-01] MEDS ORDERED: POTA10TA PO (13:31)
[2019-09-01] MEDS ORDERED: WRF1T PO (13:31)
[2019-09-01] MEDS ORDERED: CARV25TA PO (13:31)
[2019-09-01] MEDS ORDERED: DILT120C85 PO (13:32)
--- NOTE | 2019-09-01 13:34 | NUR ---
SPOKE WITH THE PT (SHE HAD A MED LIST ON HER CHART) AND WENT THRU THE EXT MED HISTORY TO COMPLETE THE MED REC THE PATIENTS LIST WAS OUTDATED (ALL MEDS WERE LISTED BUT THE STRENGTHS WERE INCORRECT): CARVEDILOL 25MG (12.5 MG IS ON THE LIST) WARFARIN 1MG (2.5 IS ON THE LIST) POTASSIUM 10MEQ AND FUROSEMIDE 40MG ARE LISTED DAILY BUT ARE NOW A PRN ESOMEPRAZOLE 40MG: EXT MED HISTORY SHOW 1 CAP BID BUT THE PT TAKES JUST 1 CAP DAILY OTC MEDS: BIOTIN
--- NOTE | 2019-09-01 13:36 | Discharge Summary ---
Discharge Summary Hospital Course Was the Problem List Reviewed?: Yes Problems/Dx: (1) Acute ischemic right PRODUCT MARKETING SPECIALIST stroke Status: Acute Hospital Course Date of Admission: Aug 31, 2019 at 22:20 Admission Diagnosis : Stroke like symptoms Family Physician/Provider: Yulissa Tomas MD Date of Discharge: 09/01/19 Discharge Diagnosis: Acute ischemic right PRODUCT MARKETING SPECIALIST stroke Hospital Course: Brynn Mccabe is a 69-year-old female who presented with visual disturbance and the left arm numbness and was admitted with strokelike symptoms. Her CT scan showed no abnormalities. She had a CTA which showed a diffuse atherosclerotic disease and a stenosis of the right PRODUCT MARKETING SPECIALIST. She underwent an MRI which showed acute/subacute right PRODUCT MARKETING SPECIALIST stroke. She was started on aspirin and Lipitor. She had been holding her Coumadin for an endoscopy as an outpatient. She was started on Lovenox as a bridge until her INR is therapeutic. She should repeat an INR check on . She was continued on her Coumadin. Her symptoms resolved by the time of discharge. She was discharged home in stable condition. She should follow-up with her primary care physician in about a week. Labs and Pending Lab Test: Laboratory Tests 08/31/19 19:42: White Blood Count 5.9, Red Blood Count 3.66L, Hemoglobin 12.7, Hematocrit 37, Mean Corpuscular Volume 100H, Mean Corpuscular Hemoglobin 35H, Mean Corpuscular Hemoglobin Concent 35, Red Cell Distribution Width 13.0, Platelet Count 185, Mean Platelet Volume 9.6, Neutrophils (%) (Auto) 64, Lymphocytes (%) (Auto) 20, Monocytes (%) (Auto) 12, Eosinophils (%) (Auto) 4, Basophils (%) (Auto) 1, Neutrophils # (Auto) 3.8, Lymphocytes # (Auto) 1.2, Monocytes # (Auto) 0.7, Eosinophils # (Auto) 0.2, Basophils # (Auto) 0.0, Prothrombin Time 14.6, INR Comment 1.1, Activated Partial Thromboplast Time 29, D-Dimer < 0.27, Sodium Level 139, Potassium Level 4.3, Chloride Level 102, Carbon Dioxide Level 24, Anion Gap 13, Blood Urea Nitrogen 17, Creatinine 1.15, Estimat Glomerular Filtration Rate 47, BUN/Creatinine Ratio 15, Glucose Level 120H, Calcium Level 9.1, Corrected Calcium 8.8, Magnesium Level 1.7, Total Bilirubin 0.4, Aspartate Amino Transf (AST/SGOT) 41H, Alanine Aminotransferase (ALT/SGPT) 32, Alkaline Phosphatase 64, Troponin I < 0.028, Total Protein 7.6, Albumin 4.4, TSH [place] Testing 3.39, Serum Alcohol 16H 08/31/19 19:45: Glucometer 123H 08/31/19 20:16: Urine Color YELLOW, Urine Clarity SL CLOUDY, Urine pH 5.0, Urine Specific [place] >=1.030, Urine Protein NEGATIVE, Urine Glucose (UA) NEGATIVE, Urine Ketones NEGATIVE, Urine Nitrite NEGATIVE, Urine Bilirubin NEGATIVE, Urine Urobilinogen 0.2, Urine Leukocyte Esterase 1+H, Urine RBC (Auto) NEGATIVE, Urine RBC NONE, Urine WBC 2-5, Urine Squamous Epithelial Cells 2-5, Urine Crystals NONE, Urine Bacteria FEWH, Urine Casts NONE, Urine Mucus NEGATIVE, Urine Culture Indicated YES, Urine Opiates Screen NEGATIVE, Urine Oxycodone Screen NEGATIVE, Urine Methadone Screen NEGATIVE, Urine Propoxyphene Screen NEGATIVE, Urine Barbiturates Screen NEGATIVE, Ur Tricyclic Antidepressants Screen NEGATIVE, Urine Phencyclidine Screen NEGATIVE, Urine Amphetamines Screen NEGATIVE, Urine Methamphetamines Screen NEGATIVE, Urine Benzodiazepines Screen NEGATIVE, Urine Cocaine Screen NEGATIVE, Urine Cannabinoids Screen NEGATIVE 08/31/19 21:35: Blood Gas Puncture Site LEFT RADIAL, Blood Gas Patient Temperature 36.7, Arterial Blood pH 7.37, Arterial Blood Partial Pressure CO2 44, Arterial Blood Partial Pressure O2 50L, Arterial Blood HCO3 25, Arterial Blood Total CO2 26.5, Arterial Blood Oxygen Saturation 78L, Arterial Blood Base Excess 0.4, Jone Test POSITIVE, Blood Gas Ventilator Setting NO, Blood Gas Inspired Oxygen 1.5 09/01/19 03:12: White Blood Count 5.8, Red Blood Count 3.86L, Hemoglobin 12.9, Hematocrit 38, Mean Corpuscular Volume 99, Mean Corpuscular Hemoglobin 33, Mean Corpuscular Hemoglobin Concent 34, Red Cell Distribution Width 12.9, Platelet Count 185, Mean Platelet Volume 10.3, Neutrophils (%) (Auto) 85H, Lymphocytes (%) (Auto) 13, Monocytes (%) (Auto) 2, Eosinophils (%) (Auto) 0, Basophils (%) (Auto) 1, Neutrophils # (Auto) 4.9, Lymphocytes # (Auto) 0.7L, Monocytes # (Auto) 0.1, Eosinophils # (Auto) 0.0, Basophils # (Auto) 0.0, Sodium Level 140, Potassium Level 3.7, Chloride Level 99, Carbon Dioxide Level 24, Anion Gap 17H, Blood Urea Nitrogen 16, Creatinine 1.23, Estimat Glomerular Filtration Rate 43, BUN/Creatinine Ratio 13, Glucose Level 176H, Calcium Level 9.2, Corrected Calcium 9.0, Phosphorus Level 3.0, Magnesium Level 1.6, Total Bilirubin 0.5, Aspartate Amino Transf (AST/SGOT) 35H, Alanine Aminotransferase (ALT/SGPT) 31, Alkaline Phosphatase 63, Troponin I < 0.028, Total Protein 7.5, Albumin 4.3, Triglycerides Level 87, Cholesterol Level 227H, LDL Cholesterol Direct 147H, VLDL Cholesterol 17, HDL Cholesterol 78H 09/01/19 03:30: B-Type Natriuretic Peptide 246.4H 09/01/19 11:31: Glucometer 195H Home Meds Active Aspirin 81 Mg Tab.chew 81 Mg PO DAILY@0900 30 Days Atorvastatin Calcium 80 Mg Tablet 80 Mg PO HS 90 Days Enoxaparin Sodium 100 Mg/1 Ml Syringe 100 Mg SC Q12H 7 Days Reported Potassium Chloride 10 Meq Tablet.er 10 Meq PO DAILY Furosemide 40 Mg Tablet 40 Mg PO DAILY Carvedilol 12.5 Mg Tablet 12.5 Mg PO BID Dofetilide 125 Mcg Capsule 125 Mcg PO BID Biotin 1,000 Mcg Tablet 1,000 Mcg PO DAILY Warfarin Sodium 2.5 Mg Tablet 1.25 Mg PO SUTUTHSA take 1/2 of 2.5mg tab Paroxetine HCl 10 Mg Tablet 10 Mg PO DAILY Esomeprazole Magnesium 40 Mg Capsule.dr 40 Mg PO DAILY Warfarin Sodium 2.5 Mg Tablet 2.5 Mg PO MOWEFR Assessment/Pt Instructions Take medications as prescribed. Begin taking aspirin and Lipitor. Begin Lovenox while your INR is subtherapeutic. Recheck your INR on . Follow-up with your primary care physician in about a week. Discharge Planning: <30 minutes discharge planning Discharge Instructions Discharge Diet: No Restrictions Activity as Tolerated: Yes Discharge Physical Examination Vital Signs Vital Signs Date Time Temp Pulse Resp B/P (MAP) Pulse Ox O2 Delivery O2 Flow Rate FiO2 09/01/19 13:00 79 21 125/68 (87) 92 Room Air 09/01/19 12:00 37.0 09/01/19 01:12 21 08/31/19 23:55 1.50 General Appearance: No Apparent Distress, Obese HEENT: PERRL/EOMI, Pharynx Normal Respiratory: Lungs Clear, Normal Breath Sounds, No Respiratory Distress Cardiovascular: Regular Rate, Rhythm, No Edema, No Murmur Gastrointestinal: Normal Bowel Sounds, Non Tender, Soft Extremity: Normal Inspection, Non Tender, No Pedal Edema Skin: Normal Color, Warm/Dry Neurologic/Psychiatric: Alert, Oriented x3, No Motor/Sensory Deficits, Normal Mood/Affect Allergies: Coded Allergies: No Known Drug Allergies (Unverified , 03/07/18) Copy Copies To 1: YULISSA TOMAS MD Discharge Summary Date of Admission Aug 31, 2019 at 22:20 Date of Discharge Discharge Date: Sep 01, 2019 Discharge Time: 13:36 Admission Diagnosis Stroke-like symptoms Discharge Diagnosis (1) Acute ischemic right PRODUCT MARKETING SPECIALIST stroke Status: Acute Clinical Quality Measures DVT/VTE Risk/Contraindication: Risk Factor Score Per Nursin RFS Level Per Nursing on Admit: 2=Moderate MARIIA DREW MD Sep 01, 2019 13:29
--- NOTE | 2019-09-01 15:20 | NUR ---
Asencio catheter removed. IV removed, tip intact, bleeding stopped and gauze and tape applied to site. Entire discharge packet discussed with patient. Strokes discussed extensively with patient including signs and symptoms and what actions to take, patient engaged in conversation. Patient and I also discussed her medications, the ones to continue as well as her new medications that have been prescribed by . Patient advised to follow up with in 1 week per . Patient states that all of her questions has been answered. Patient leaving floor at 1520, NT Amaral walked patient down to entrance, her is now with her, he is her ride home.
[2019-09-02] MEDS ORDERED: ASPIRIN 81 MG CHEW (CHILDREN'S ASA) PO SCH (09:00)
[2019-09-02] MEDS ORDERED: warFARin 2 MG (COUMADIN) TAB PO SCH (18:00)
== END 2019-09-01 15:20 | disposition home or self-care (01) | DRG 66 ==
LOC: EDUNIT# 19:37 → ER 19:38 → ICU 22:20
PROVIDERS: ADMIT Internal Medicine; ATTEND Internal Medicine
DX: I63.531 Cerebral infarction due to unspecified occlusion or stenosis of right posterior cerebral artery (principal); R29.701 NIHSS score 1; H53.9 Unspecified visual disturbance; R20.0 Anesthesia of skin; I67.2 Cerebral atherosclerosis; I48.91 Unspecified atrial fibrillation; I10 Essential (primary) hypertension; K21.9 Gastro-esophageal reflux disease without esophagitis; F41.9 Anxiety disorder, unspecified; F32.9 Major depressive disorder, single episode, unspecified; Z85.42 Personal history of malignant neoplasm of other parts of uterus; Z79.01 Long term (current) use of anticoagulants; Z90.710 Acquired absence of both cervix and uterus; Z90.89 Acquired absence of other organs
CPT/HCPCS: 36415; 51702; 70450; 70496; 70498; 70553; 71045; 80053; 80061; 80306; 80320; 81000; 82805; 82962; 83735; 83880; 84100; 84443; 84484; 85025; 85379; 85610; 85730; 87081; 87088; 93005; 93041; 93880; 94640

== ENCOUNTER 2021-05-23 15:41 | Emergency (ER) | payer MEDICARE, OTHER ==
[~2021-05-23] VITALS: Ht 165 cm; Wt 95.0 kg
[~2021-05-23 15:41] MED LIST changes: +AMLO-250 PO; -AMLO5TAB9 PO; +ASPI-999 PO; +ATOR80TA76 PO; +CARV25TA PO; +CYCL10TA25 PO; -CYCL10TA9 PO; +DILT120C85 PO; +ENAL20TA16 PO; +ENOX100D4 SC; +POTA10TA PO; -WARF2.5T82 PO; +WRF1T PO
--- NOTE | 2021-05-23 16:18 | ED General ---
General Chief Complaint: Respiratory Problems Stated Complaint: SOB, LOW O2 Nursing Triage Note: ARRIVED VIA AMB FROM URGENT CARE WITH SOA, TEMP, SORETHROAT, AND HEADACHE STARTING THIS AM. COVID, FLU, STREP ALL NEG TODAY. Source of Information: Patient Exam Limitations: No Limitations (ELMA CRUZ STUDENT) History of Present Illness Date Seen by Provider: May 23, 2021 Time Seen by Provider: 16:00 Initial Comments This is a 71 YO female presenting to the ED with muscle aches, fever, headache, and sore throat since this morning. Has been treating her fever with Tylenol at home. Went to walk-in clinic this morning for symptoms, where CXR, EKG, UA, strep, flu, and COVID tests were all negative. Pt says that per staff there, her O2 saturation was 92% with exertion and they were concerned about a PE, so they sent her here for a CT. Pt has no history of PE/DVT in the past. Not on hormone replacement. No recent hospitalization or surgeries, but did come back into town from a 23 hour car ride from [place]. No leg pain or swelling. She has a history of stroke and Afib with ablation, currently on Xarelto. Says that she does not feel short of breath and her main complaint is the body aches and sore throat. Timing/Duration: 1 Day Associated Systoms: Fever/Chills; No Nausea/Vomiting (ELMA CRUZ STUDENT) Allergies and Home Medications Allergies Coded Allergies: No Known Drug Allergies (Unverified , 03/07/18) Patient Home Medication List Home Medication List Reviewed: Yes (CHERELLE TEIXEIRA MD) Aspirin (Aspirin) 81 Mg Tab.chew, 81 MG PO DAILY@0900 Prescribed by: MARIIA DREW on 09/01/19 1321 Atorvastatin Calcium (Atorvastatin Calcium) 80 Mg Tablet, 80 MG PO HS Prescribed by: MARIIA DREW on 09/01/19 1321 Biotin (Biotin) 1,000 Mcg Tablet, 1,000 MCG PO DAILY, (Reported) Entered as Reported by: TOREY LIMON on 03/25/18 1228 Carvedilol (Carvedilol) 25 Mg Tablet, 25 MG PO BID, (Reported) Entered as Reported by: LARS CONTRERAS on 09/01/19 1331 Diltiazem HCl (Diltiazem ER) 120 Mg Capsule.er, 120 MG PO DAILY, (Reported) Entered as Reported by: LARS CONTRERAS on 09/01/19 1332 Dofetilide (Dofetilide) 125 Mcg Capsule, 125 MCG PO BID, (Reported) Entered as Reported by: TOREY LIMON on 02/03/19 1056 Enoxaparin Sodium (Enoxaparin Sodium) 100 Mg/1 Ml Syringe, 100 MG SC Q12H Prescribed by: MARIIA DREW on 09/01/19 1321 Esomeprazole Magnesium (Esomeprazole Magnesium) 40 Mg Capsule.dr, 40 MG PO DAILY, (Reported) Entered as Reported by: RAYMUNDO BRAVO on 03/07/18 1011 Furosemide (Furosemide) 40 Mg Tablet, 40 MG PO DAILY PRN for FLUID RETENTION, (Reported) Entered as Reported by: TOREY LIMON on 02/03/19 1056 Paroxetine HCl (Paroxetine HCl) 10 Mg Tablet, 10 MG PO DAILY, (Reported) Entered as Reported by: RAYMUNDO BRAVO on 03/07/18 1011 Potassium Chloride (K-Tab ER) 10 Meq Tablet.er, 10 MEQ PO DAILY PRN for FLUID RETENTION, (Reported) Entered as Reported by: LARS CONTRERAS on 09/01/19 1331 Warfarin Sodium (Coumadin) 1 Mg Tablet, 1.5 MG PO HS, (Reported) Entered as Reported by: LARS CONTRERAS on 09/01/19 1331 Review of Systems Review of Systems Constitutional: No chills; fever EENTM: throat pain; No blurred vision, No double vision Respiratory: see HPI; No cough; dyspnea on exertion Cardiovascular: No chest pain, No palpitations Gastrointestinal: No abdominal pain Genitourinary: no symptoms reported Musculoskeletal: see HPI, muscle pain Skin: No pruritus, No rash Psychiatric/Neurological: Headache; Denies Numbness Hematologic/Lymphatic: No Symptoms Reported Immunological/Allergic: no symptoms reported (ELMA CRUZ MED STUDENT) All Other Systems Reviewed Negative Unless Noted: Yes (Negative excepted noted.) (ELMA CRUZ MED STUDENT) Past Fpujzpe-Jwghfa-Ozeayf Hx Patient Social History Tobacco Use?: No (ELMA CRUZ MED STUDENT) Immunizations Up To Date Tetanus Booster (TDap): Less than 5yrs PED Vaccines UTD: No (ELMA CRUZ STUDENT) Seasonal Allergies Seasonal Allergies: No (ELMA CRUZ STUDENT) Past Medical History Surgeries: Yes (BUNIONECTOMY WITH PIN PLACED, R RCR; EGD 08/28/19) Breast, Gallbladder, Hysterectomy, Orthopedic, Tonsillectomy Respiratory: No Currently Using CPAP: No Cardiac: Yes Atrial Fibrillation, Hypertension Neurological: No 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, 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 Sexually Transmitted Disease: No HIV/AIDS: No Genitourinary: No Gastrointestinal: Yes Gastroesophageal Reflux, Chronic Diarrhea Musculoskeletal: Yes (RIGHT CARPAL TUNNEL RELEASE) Endocrine: No HEENT: Yes (READING GLASSES) Loss of Vision: Bilateral Hearing Impairment: Denies Cancer: Yes Uterine Did You Recieve Any Treatments: Yes What Type of Treatment Did You: Chemotherapy, Surgical Intervention Psychosocial: Yes Anxiety, Depression Integumentary: No Blood Disorders: No Adverse Reaction/Blood Tranf: No (N/A) (ELMA CRUZ STUDENT) Family Medical History Alcoholism G8 BROTHER G8 BROTHER Cancer of mouth G8 BROTHER G8 BROTHER Cardiovascular disease Cataracts G8 BROTHER G8 BROTHER G8 SISTER G8 SISTER G8 SISTER FH: breast cancer G8 SISTER FH: lung cancer G8 BROTHER FH: pancreatic cancer G8 SISTER Headache disorder G8 BROTHER G8 BROTHER Hypercholesterolemia Hypertension 19 MOTHER G8 BROTHER G8 BROTHER G8 SISTER G8 SISTER G8 SISTER Myocardial infarction 19 FATHER G8 BROTHER G8 BROTHER Thyroid disease G8 SISTER No Family History of: AIDS Abdominal aortic aneurysm Harper's disease Alzheimer's disease Aphasia Arthritis Asthma Colon cancer Completed stroke Congenital disease Congenital heart disease Coronary thrombosis Cystic fibrosis Deafness or hearing loss Dementia Diabetes mellitus Drug abuse Dysphasia Fibrocystic disease of breast Gastroenteritis Glaucoma Infertility Kidney disease Neoplasm Not obtainable due to adoption Osteoporosis Parkinson's disease Prostate cancer Psychosocial problem Respiratory disorder Seizure disorder Severe allergy Tuberculosis Visual disorder Physical Exam Vital Signs Vital Signs - First Documented 05/23/21 15:50 Temp 36.5 Pulse 70 Resp 16 B/P (MAP) 139/83 (101) Pulse Ox 93 O2 Delivery Room Air (CHERELLE TEIXEIRA MD) Vital Signs Capillary Refill : Less Than 3 Seconds (ELMA CRUZ MED STUDENT) Height, Weight, BMI Height: 5'5.00" Weight: 213lbs. 0.0oz. 96.605162tv; 34.00 BMI Method:Stated General Appearance: No Apparent Distress, WD/WN Eyes: Bilateral Eye Normal Inspection, Bilateral Eye EOMI HEENT: PERRL/EOMI, Other (pharyngeal erythema, mildly dry mucous membranes) Neck: Normal Inspection, Supple Respiratory: Lungs Clear, Normal Breath Sounds, No Accessory Muscle Use, No Respiratory Distress Cardiovascular: Regular Rate, Rhythm, No Murmur Gastrointestinal: Non Tender, Soft; No Distended; Other (obese) Extremity: Normal Range of Motion, No Calf Tenderness, No Pedal Edema Neurologic/Psychiatric: Alert, Oriented x3, No Motor/Sensory Deficits, Normal Mood/Affect Skin: Normal Color, Warm/Dry (ELMA CRUZ MED STUDENT) Progress/Results/Core Measures Suspected Sepsis SIRS Temperature: Pulse: 70 Respiratory Rate: 16 Blood Pressure 139 /83 Mean: 101 (ELMA CRUZ [place] STUDENT) Results/Orders Lab Results Laboratory Tests Test 05/23/21 16:15 Range/Units White Blood Count 4.1 L 4.3-11.0 10^3/uL Red Blood Count 3.07 L 3.80-5.11 10^6/uL Hemoglobin 8.4 L 11.5-16.0 g/dL Hematocrit 27 L 35-52 % Mean Corpuscular Volume 89 80-99 fL Mean Corpuscular Hemoglobin 27 25-34 pg Mean Corpuscular Hemoglobin Concent 31 L 32-36 g/dL Red Cell Distribution Width 15.4 H 10.0-14.5 % Platelet Count 251 130-400 10^3/uL Mean Platelet Volume 9.9 9.0-12.2 fL Immature Granulocyte % (Auto) 2 % Neutrophils (%) (Auto) 62 42-75 % Lymphocytes (%) (Auto) 16 12-44 % Monocytes (%) (Auto) 18 H 0-12 % Eosinophils (%) (Auto) 2 0-10 % Basophils (%) (Auto) 1 0-10 % Neutrophils # (Auto) 2.5 1.8-7.8 10^3/uL Lymphocytes # (Auto) 0.7 L 1.0-4.0 10^3/uL Monocytes # (Auto) 0.7 0.0-1.0 10^3/uL Eosinophils # (Auto) 0.1 0.0-0.3 10^3/uL Basophils # (Auto) 0.0 0.0-0.1 10^3/uL Immature Granulocyte # (Auto) 0.1 0.0-0.1 10^3/uL Sodium Level 137 135-145 MMOL/L Potassium Level 3.7 3.6-5.0 MMOL/L Chloride Level 102 98-107 MMOL/L Carbon Dioxide Level 23 21-32 MMOL/L Anion Gap 12 5-14 MMOL/L Blood Urea Nitrogen 17 7-18 MG/DL Creatinine 1.32 H 0.60-1.30 MG/DL Estimat Glomerular Filtration Rate 43 BUN/Creatinine Ratio 13 Glucose Level 101 70-105 MG/DL Calcium Level 9.1 8.5-10.1 MG/DL Corrected Calcium 9.3 8.5-10.1 MG/DL Iron Level 40 33-167 ug/dL Total Iron Binding Capacity 345 H 237-330 ug/dL Unsaturated Iron Binding Capacity 305 25-500 ug/dL Transferrin % Saturation 12 L 17-57 % Ferritin 24.0 20.0-177.0 ng/mL Total Bilirubin 0.5 0.1-1.0 MG/DL Aspartate Amino Transf (AST/SGOT) 18 5-34 U/L Alanine Aminotransferase (ALT/SGPT) 14 0-55 U/L Alkaline Phosphatase 75 40-136 U/L Troponin I < 0.028 <0.028 NG/ML B-Type Natriuretic Peptide 275.9 H <100.0 PG/ML Total Protein 6.4 6.4-8.2 GM/DL Albumin 3.7 3.2-4.5 GM/DL Vitamin B12 Level 446 275-2088 pg/mL (CHERELLE TEIXEIRA MD) My Orders Orders - CHERELLE TEIXEIRA MD Bnp [place] (05/23/21 16:42) Cbc With Automated Diff (05/23/21 16:42) Comprehensive Metabolic Panel (05/23/21 16:42) Albuterol Inhaler (Albuterol) (05/23/21 16:42) Troponin I [place] (05/23/21 16:42) Vitamin B 12 (05/23/21 18:17) Iron Tibc %Sat & Ferritin (05/23/21 18:17) Ekg Tracing (05/23/21 15:55) (CHERELLE TEIXEIRA MD) Vital Signs/I&O 05/23/21 05/23/21 15:50 18:40 Temp 36.5 Pulse 70 75 Resp 16 18 B/P (MAP) 139/83 (101) 162/98 Pulse Ox 93 97 O2 Delivery Room Air Room Air (CHERELLE TEIXEIRA MD) Vital Signs/I&O Capillary Refill : Less Than 3 Seconds (ELMA CRUZ MED STUDENT) Blood Pressure Mean: 101 Progress Note : Progress Note Elma Cruz, MS 4 contacted the provider at [facility] and confirmed that the flu, Covid, and strep test were all negative. Chest x-ray was reported as normal. UA was also unremarkable. Patient was further evaluated here with labs. She was found to have wheezing on auscultation with forced expiration. She was given an inhaler which did improve her breathing some. Wheezing had decreased significantly on repeat examination. CTA of the chest was not pursued as patient has been on Xarelto and reports relatively good compliance, not missing more than 1 dose per month. She was not hypoxic or tachycardic. She was not experiencing any chest pain. I did have her ambulate around the room and obtained a pulse ox immediately after. Oxygen saturations were 95 to 97% after exercise. Patient was ultimately discharged in good condition and was dispensed with a an albuterol inhaler with spacer. Patient was found to be anemic when compared with prior hemoglobin. She is on Xarelto and could possibly have some occult blood loss. She does have upper and lower endoscopy scheduled for 2 weeks from now. I stressed the importance of following through with these stud ies. I also advised her that she needs to follow closely with her primary care provider and have her hemoglobin monitored to ensure it is not continuously dropping. She has a history of vitamin B12 deficiency and she is behind on her B12 injections as she is trying to find somebody to perform them for her. Iron studies and B12 level were added to her labs. I do suspect that her flulike symptoms are caused by a viral illness that is also triggering bronchitis. See discharge instructions for further details and discussion. (CHERELLE TEIXEIRA MD) ECG Initial ECG Impression Date: May 23, 2021 Initial ECG Impression Time: 15:55 Initial ECG Rate: 63 Initial ECG Rhythm: Normal Sinus Initial ECG Intervals: Normal Initial ECG Impression: Normal Comment Normal sinus rhythm with no ST elevation or depression. No abnormal intervals or axis deviation. (CHERELLE TEIXEIRA MD) Departure Impression Primary Impression: Flu-like symptoms Additional Impressions: Macrocytic anemia Acute bronchitis Qualified Codes: J20.9 - Acute bronchitis, unspecified Vitamin B12 deficiency Pharyngitis Qualified Codes: J02.9 - Acute pharyngitis, unspecified Disposition: 01 HOME, SELF-CARE Condition: Improved Departure-Patient Inst. Decision time for Depature: 18:22 (CHERELLE TEIXEIRA MD) Referrals: FERNANDO TOMAS MD (PCP/Family) Primary Care Physician Patient Instructions: Acute Bronchitis, Vitamin B12 Deficiency (DC) Add. Discharge Instructions: 1. Acute bronchitis. You likely have a viral illness causing flulike symptoms and wheezing. Use your inhaler up to 4 puffs in a 4-hour period of time to help with shortness of breath and wheezing. You may use Tylenol (acetaminophen) up to 1000 mg every 6 hours as needed for fever or discomfort. Return to the ER if you have worsening shortness of breath or other escalating symptoms. 2. Anemia. Your anemia may be due to vitamin B12 deficiency. Resume your vitamin B12 treatments. However, there may also be a component of blood loss contributing to your anemia. It is very important that you have your hemoglobin monitored by your primary care provider and that you follow through with your endoscopy procedures scheduled for the near future. 3. Return to care if you have worsening symptoms, and call if you have other questions or concerns. All discharge instructions reviewed with patient and/or family. Voiced understanding. Medical Student Attestation and Attending Note: I have personally interviewed and examined this patient along with Elma Cruz, MS 4. I have reviewed student documentation including history, physical, and assessments. I agree with the documentation except where otherwise noted. Exam: General: Alert, oriented, no acute distress, well developed HEENT: Normocephalic and atraumatic, minor pharyngeal edema, no purulent exudate Heart: Regular rate and rhythm without murmur Lungs: No crackles or rhonchi, normal effort, wheezing with forced expiration Abdomen: Soft, nontender, nondistended, normal bowel sounds Extremities: Nontender, no significant edema Neuropsych: Alert, oriented, no focal deficits Skin: Warm and dry without rashes (CHERELLE TEIXEIRA MD) Copy Copies To 1: [facility]ER[facility] ST[facility] May 23, 2021 16:18 CHERELLE TEIXEIRA MD May 23, 2021 18:27
[2021-05-23] MEDS ORDERED: RT-ALBUTEROL HFA 8.5 GM INHALER IH STA (16:42)
[2021-05-23 16:51] LABS: ALBUMIN 3.7 GM/DL (3.2-4.5)
[2021-05-23 16:52] LABS: BASOPHILS % (AUTO) 1 % (0-10); CHLORIDE 102 MMOL/L (98-107); EOSINOPHILS # (AUTO) 0.1 10^3/uL (0.0-0.3); EOSINOPHILS % (AUTO) 2 % (0-10); HEMATOCRIT 27 % (35-52); HEMOGLOBIN 8.4 g/dL (11.5-16.0); LYMPHOCYTES # (AUTO) 0.7 10^3/uL (1.0-4.0); LYMPHOCYTES % (AUTO) 16 % (12-44); MEAN CORPUSCULAR HEMOGLOBIN 27 pg (25-34); MEAN CORPUSCULAR HGB CONC 31 g/dL (32-36); MEAN CORPUSCULAR VOLUME 89 fL (80-99); MEAN PLATELET VOLUME 9.9 fL (9.0-12.2); MONOCYTES # (AUTO) 0.7 10^3/uL (0.0-1.0); MONOCYTES % (AUTO) 18 % (0-12); NEUTROPHILS # (AUTO) 2.5 10^3/uL (1.8-7.8); NEUTROPHILS % (AUTO) 62 % (42-75); PLATELET COUNT 251 10^3/uL (130-400); POTASSIUM 3.7 MMOL/L (3.6-5.0); SODIUM 137 MMOL/L (135-145); WHITE BLOOD COUNT 4.1 10^3/uL (4.3-11.0)
[2021-05-23 16:53] LABS: CALCIUM 9.1 MG/DL (8.5-10.1)
[2021-05-23 16:54] LABS: GLUCOSE 101 MG/DL (70-105); TOTAL PROTEIN 6.4 GM/DL (6.4-8.2)
[2021-05-23 16:55] LABS: CARBON DIOXIDE 23 MMOL/L (21-32)
[2021-05-23 16:56] LABS: BILIRUBIN,TOTAL 0.5 MG/DL (0.1-1.0)
[2021-05-23 16:57] LABS: ALKALINE PHOSPHATASE 75 U/L (40-136)
[2021-05-23 16:58] LABS: CREATININE SERUM 1.32 MG/DL (0.60-1.30); GFR ESTIMATED 43
[2021-05-23 16:59] LABS: BUN/CREATININE RATIO 13
[2021-05-23 17:00] LABS: ALANINE AMINOTRANSFERASE 14 U/L (0-55)
[2021-05-23 18:40] VITALS: BP 162/98
== END 2021-05-23 18:40 | disposition home or self-care (01) ==
LOC: EDUNIT# 15:41 → ER 15:43
DX: J11.1 Influenza due to unidentified influenza virus with other respiratory manifestations (principal); D50.9 Iron deficiency anemia, unspecified; J20.9 Acute bronchitis, unspecified; E53.8 Deficiency of other specified B group vitamins; E66.9 Obesity, unspecified; I48.91 Unspecified atrial fibrillation; Z68.34 Body mass index [BMI] 34.0-34.9, adult; Z86.73 Personal history of transient ischemic attack (TIA), and cerebral infarction without residual deficits; Z79.01 Long term (current) use of anticoagulants
CPT/HCPCS: 36415; 80053; 82607; 82728; 83540; 83550; 83880; 84484; 85025; 93005

== ENCOUNTER 2022-03-09 13:41 | Outpatient (RCR) | payer MEDICARE, OTHER | END 2022-03-10 | disposition home or self-care (01) | PROVIDERS: ATTEND Orthopaedic Surgery | DX: S83.28 Other tear of lateral meniscus, current injury (principal); I11.9 Hypertensive heart disease without heart failure ==

== ENCOUNTER 2022-03-13 13:43 | Outpatient (RCR) | payer MEDICARE, OTHER | END 2022-04-10 09:51 | disposition home or self-care (01) | PROVIDERS: ATTEND Orthopaedic Surgery | DX: S83.28 Other tear of lateral meniscus, current injury (principal); I11.9 Hypertensive heart disease without heart failure ==